=== PATIENT | male | born 1955 | race Caucasian/White ===

== ENCOUNTER → 2017-01-30 | Outpatient (CLI) | payer MEDICARE, OTHER ==
[~2017-01-30] MED LIST: ACET325 PO; ALBU90OI6; ALBUIS; ALLEGRA; ALUMAG30SU PO; AMOX25SU; Allegra-D 12 H1 EACH PO; BACL10; BACL20; BACLOFEN; Bactrim Ds Tab1 EACH PO; CALMAGZIN PO; CEFD300 PO; CEFP200; CEPH500 PO; CHOLP; CIPRO500 MG PO; CRANBERRY450 MG PO; Cranberry500 M1; DAKIN'S473 ML TOP; DOC250 PO; DOCU100; DOXY100 PO; Diflucan100 MG; FERR325 PO; FEXO180; FEXO180 PO; FEXO60; FEXPSEER PO; FLUSAL1005; FLUSAL1005 IH; FLUSAL1005 INH; FURO20 PO; FURO40; FURO40 PO; GABA300; GABA300 PO; GABA600; GABA600 PO; GABAPENTIN; GAVILAX17 GM PO; HYDACE10B; HYDACE10B PO; Humulin N100 UNIT/1 SC; IRON18 MG PO; IRRISO BLADIN; LEVEMIR FL100 UNIT/1; LEVEMIR FL100 UNIT/1 SC; LEVFLO500; LEVFLO500 PO; LEVO750 PO; LIORESAL; LIORESAL I; LISI5 PO; MANNOSE50 GM PO; META800 PO; METF500; METF500 PO; METF500C PO; METO25ER; METO50ER; METO50ER PO; MICRO K; MORP30ER PO; MSM PO; MULVITA PO; MULVITMINF PO; Micro-K10 MEQ; Micro-K10 MEQ PO; NITR100 PO; NOVOLOG FL100 UNIT/1 SC; NYST100P; NYST100P TOP; Norco 10-325 T1 EACH PO; OMEG1CAP30 PO; OMEP20ER; OMEP20ER PO; OMEPRAZOLE MAGN20 MG PO; ONDA4ODT PO; OXYACE5T PO; OXYB5; OXYB5 PO; OXYB5ER PO; OXYBSY; OXYC15ER PO; OXYC20ER; OXYC5 PO; POLY500; POTA10T PO; POTA8; POTCHL10ER PO; PREG100 PO; PREG150 PO; PROBIOTIC1 EAC1 PO; PROC10 PO; PROM25 PO; QUESTRAN LIGHT; QUIN10 PO; RENACIDIN IRRIG30 ML IR; RXONDA4ODT MM; SULTRIDS PO; TIAG12; TORSE20 PO; TORSEMIDE PO; TRAZ100; TRIM100; TRIM100 PO; TRIMPEX PO; Thera-M1 EACH PO; VENL37.5 PO; VITAMIN D PO; [UNRECOGNIZED DRUG - CODE] SC; [UNRECOGNIZED DRUG - OTHER]
[2017-01-30 13:53] LABS: Source, Urine Catheter
[2017-01-30 14:03] LABS: Bilirubin, Urine Neg (Neg); Blood, Urine 1+ (Neg); Glucose Qualitative, Urine Neg (Neg); Ketones, Urine Neg (Neg); Leukocyte Esterase, Urine 1+ (Neg); Nitrite, Urine Neg (Neg); Protein, Urine Neg (Neg); Specific Gravity, Urine 1.005 (1.003-1.022); Urobilinogen, Urine NORM (Normal)
[2017-01-30 14:11] LABS: Appearance, Urine Clear (Clear); Color, Urine Pale Yellow (P-Yellow)
[2017-01-30 14:16] LABS: Bacteria Few /hpf; Squamous Epithelial Cells Few /hpf (Few); Yeast/Fungi Urine Few /hpf
== END | disposition home or self-care (01) ==
LOC: LAB HH 13:50
PROVIDERS: Internal Medicine
DX: Z09 Encounter for follow-up examination after completed treatment for conditions other than malignant neoplasm (principal); Z87.440 Personal history of urinary (tract) infections
CPT/HCPCS: 81001; 87077; 87086; 87186

== ENCOUNTER 2017-03-05 00:43 | Day surgery (SDC) | payer MEDICARE, OTHER ==
[~2017-03-05 00:43] MED LIST changes: -Allegra-D 12 H1 EACH PO; -CEFD300 PO; -DAKIN'S473 ML TOP; -DOXY100 PO; -GAVILAX17 GM PO; -Humulin N100 UNIT/1 SC; +LAVAP17G PO; -MANNOSE50 GM PO; +MULVITMIND PO; -NOVOLOG FL100 UNIT/1 SC; +Novolog Fl100 UNIT/1; -OMEPRAZOLE MAGN20 MG PO; -Thera-M1 EACH PO; -[UNRECOGNIZED DRUG - CODE] SC
== END 2017-03-05 10:56 | disposition home or self-care (01) ==
LOC: ATC 00:43
DX: N39.0 Urinary tract infection, site not specified (principal); Z95.828 Presence of other vascular implants and grafts
CPT/HCPCS: 96523; J1642

== ENCOUNTER 2017-03-12 12:10 | Day surgery (SDC) | payer MEDICARE, OTHER | END 2017-03-12 22:55 | disposition home or self-care (01) | LOC: WOUND 12:10 | DX: Z48.00 Encounter for change or removal of nonsurgical wound dressing (principal); E11.622 Type 2 diabetes mellitus with other skin ulcer; L89.323 Pressure ulcer of left buttock, stage 3; G82.21 Paraplegia, complete; E66.01 Morbid (severe) obesity due to excess calories | CPT/HCPCS: 87070; 87075; 87076; 87147; 87205; G0463 ==

== ENCOUNTER 2017-03-12 13:53 | Day surgery (SDC) | payer MEDICARE, OTHER ==
[2017-03-12 15:02] LABS: Hematocrit 36.1 % (37.0-53.0); Hemoglobin 10.5 g/dL (13.5-17.5); Mean Corpuscular HGB 22.9 pg (26.0-34.0); Mean Corpuscular HGB Conc 29.1 g/dL (31.5-36.5); Mean Corpuscular Volume 79 fL (80-100); Mean Platelet Volume 8.7 fL (9.1-12.4); Platelet Count 572 K/mm3 (150-400); RDW Coefficient Variation 16.9 % (11.7-14.2); RDW Standard Deviation 48.2 fL (35.1-46.3); Red Blood Cell Count 4.58 M/mm3 (4.30-5.90); White Blood Cell Count 12.91 K/mm3 (4.00-11.30)
[2017-03-12 15:27] LABS: Alanine Aminotransfer (ALT/SGP 25 U/L (12-78); Albumin, Blood 2.6 g/dL (3.4-5.0); Albumin/Globulin Ratio 0.6 (0.8-1.8); Alk Phos 102 U/L (50-136); Anion Gap 4 mmol/L (6-16); Aspartate Aminotrans (AST/SGOT 14 U/L (12-37); Bilirubin, Total 0.3 mg/dL (0.1-1.0); Blood Urea Nitrogen 20 mg/dL (8-24); Bun/Creatinine Ratio 44.7 (12.0-20.0); CO2, Blood 32 mmol/L (21-32); Calcium, Blood 8.4 mg/dL (8.5-10.1); Chloride, Blood 102 mmol/L (98-108); Creatinine, Blood 0.45 mg/dL (0.60-1.20); Globulin, Blood 4.2 g/dL (2.2-4.0); Glomerular Filtration Rate >60 (60-); Glucose, Blood 145 mg/dL (70-99); Potassium, Blood 4.2 mmol/L (3.5-5.5); Sodium, Blood 138 mmol/L (136-145); Total Protein, Blood 6.8 g/dL (6.4-8.2)
== END 2017-03-12 14:32 | disposition home or self-care (01) ==
LOC: ATC 13:53
PROVIDERS: Surgery
DX: N39.0 Urinary tract infection, site not specified (principal); Z95.828 Presence of other vascular implants and grafts; E11.622 Type 2 diabetes mellitus with other skin ulcer; L98.419 Non-pressure chronic ulcer of buttock with unspecified severity; Z79.4 Long term (current) use of insulin; G82.20 Paraplegia, unspecified
CPT/HCPCS: 36591; 80053; 83036; 85027; 85651; 86140; J1642

== ENCOUNTER 2017-03-29 00:46 | Day surgery (SDC) | payer MEDICARE, OTHER | END 2017-03-29 23:35 | disposition home or self-care (01) | LOC: WOUND 00:46 | PROC: 2W15X6Z Compression of Back using Pressure Dressing (ICD-10-PCS; principal; 2017-03-29) | DX: Z48.00 Encounter for change or removal of nonsurgical wound dressing (principal); E11.622 Type 2 diabetes mellitus with other skin ulcer; L89.323 Pressure ulcer of left buttock, stage 3; G82.21 Paraplegia, complete; E66.01 Morbid (severe) obesity due to excess calories | CPT/HCPCS: G0463 ==

== ENCOUNTER 2017-04-16 17:17 | Emergency (ER) | payer MEDICARE, OTHER ==
[~2017-04-16] VITALS: Ht 188 cm; Wt 124.7 kg
[2017-04-16 18:53] LABS: Source, Urine Catheter
[2017-04-16 18:57] LABS: Appearance, Urine Clear (Clear); Bilirubin, Urine Neg (Neg); Blood, Urine 2+ (Neg); Glucose Qualitative, Urine Neg (Neg); Ketones, Urine Neg (Neg); Leukocyte Esterase, Urine 3+ (Neg); Nitrite, Urine Pos (Neg); Protein, Urine 2+ (Neg); Urobilinogen, Urine 1+ (Normal)
[2017-04-16 19:21] LABS: Color, Urine Yellow (P-Yellow)
[2017-04-16 19:23] LABS: White Blood Cells, Urine 50-100 /hpf (0-5)
[2017-04-16 19:24] LABS: Bacteria Many /hpf; Squamous Epithelial Cells Few /hpf (Few)
[2017-04-16 19:38] LABS: BASOPHILS ABSOLUTE AUTO 0.06 K/mm3 (0.00-0.23); BASOPHILS PERCENT AUTO 0 % (0-2); EOSINOPHILS ABSOLUTE AUTO 0.18 K/mm3 (0.00-0.68); EOSINOPHILS PERCENT AUTO 1 % (0-6); Hematocrit 33.1 % (37.0-53.0); Hemoglobin 9.8 g/dL (13.5-17.5); IMMATURE GRAN ABSOLUTE AUTO 0.31 K/mm3 (0.00-0.10); IMMATURE GRAN PERCENT AUTO 2 % (0-1); LYMPHOCYTES PERCENT AUTO 10 % (21-46); MONOCYTES ABSOLUTE AUTO 1.01 K/mm3 (0.16-1.47); MONOCYTES PERCENT AUTO 6 % (4-13); Mean Corpuscular HGB 22.8 pg (26.0-34.0); Mean Corpuscular HGB Conc 29.6 g/dL (31.5-36.5); Mean Corpuscular Volume 77 fL (80-100); Mean Platelet Volume 8.9 fL (9.1-12.4); NEUTROPHILS PERCENT AUTO 80 % (41-73); Platelet Count 442 K/mm3 (150-400); RDW Coefficient Variation 17.4 % (11.7-14.2); RDW Standard Deviation 48.6 fL (35.1-46.3); Red Blood Cell Count 4.29 M/mm3 (4.30-5.90); White Blood Cell Count 16.16 K/mm3 (4.00-11.30)
[2017-04-16 19:52] LABS: International Normalized Ratio 1.05; Prothrombin Time Results 10.9 Sec (9.7-11.5)
[2017-04-16 19:57] LABS: Alanine Aminotransfer (ALT/SGP 19 U/L (12-78); Albumin, Blood 2.3 g/dL (3.4-5.0); Albumin/Globulin Ratio 0.5 (0.8-1.8); Alk Phos 111 U/L (50-136); Anion Gap 6 mmol/L (6-16); Aspartate Aminotrans (AST/SGOT 11 U/L (12-37); Bilirubin, Total 0.2 mg/dL (0.1-1.0); Blood Urea Nitrogen 21 mg/dL (8-24); Bun/Creatinine Ratio 36.5 (12.0-20.0); CO2, Blood 31 mmol/L (21-32); Calcium, Blood 8.6 mg/dL (8.5-10.1); Chloride, Blood 98 mmol/L (98-108); Creatinine, Blood 0.58 mg/dL (0.60-1.20); Globulin, Blood 4.5 g/dL (2.2-4.0); Glomerular Filtration Rate >60 (60-); Glucose, Blood 223 mg/dL (70-99); Potassium, Blood 4.2 mmol/L (3.5-5.5); Sodium, Blood 135 mmol/L (136-145); Total Protein, Blood 6.8 g/dL (6.4-8.2)
[2017-04-16] MEDS ORDERED: CEFD300 PO (20:28)
[2017-04-16] MEDS ORDERED: LEVFLO500 PO (21:02)
== END 2017-04-16 21:40 | disposition home or self-care (01) ==
LOC: ER 17:17
PROVIDERS: Emergency Medicine
DX: N39.0 Urinary tract infection, site not specified (principal); R00.0 Tachycardia, unspecified; Z88.1 Allergy status to other antibiotic agents; Z79.899 Other long term (current) drug therapy; Z79.891 Long term (current) use of opiate analgesic; Z79.4 Long term (current) use of insulin
CPT/HCPCS: 36415; 80053; 81001; 83605; 85025; 85610; 85730; 87040; 87077; 87086; 87186; 96365; 99283; J0696; J1642; J7030

== ENCOUNTER 2017-04-20 10:52 | Emergency (ER) | payer MEDICARE, OTHER ==
[~2017-04-20] VITALS: Ht 188 cm; Wt 124.7 kg
[~2017-04-20 10:52] MED LIST changes: +CEFD300 PO
== END 2017-04-20 12:57 | disposition home or self-care (01) ==
LOC: ER 10:52
DX: N39.0 Urinary tract infection, site not specified (principal); B96.5 Pseudomonas (aeruginosa) (mallei) (pseudomallei) as the cause of diseases classified elsewhere; E11.9 Type 2 diabetes mellitus without complications; Z88.1 Allergy status to other antibiotic agents; Z79.899 Other long term (current) drug therapy; Z79.4 Long term (current) use of insulin
CPT/HCPCS: 87040; 99283; J1642

== ENCOUNTER 2017-06-19 00:24 | Day surgery (SDC) | payer MEDICARE, OTHER | END 2017-06-19 09:00 | disposition home or self-care (01) | LOC: ATC 00:24 | PROVIDERS: Internal Medicine | DX: L98.419 Non-pressure chronic ulcer of buttock with unspecified severity (principal); N39.0 Urinary tract infection, site not specified | CPT/HCPCS: 83036; 83540; 83550; 96374; J0713 ==

== ENCOUNTER 2017-06-20 00:24 | Day surgery (SDC) | payer MEDICARE, OTHER | END 2017-06-20 16:36 | disposition home or self-care (01) | LOC: ATC 00:24 | DX: N39.0 Urinary tract infection, site not specified (principal); D50.9 Iron deficiency anemia, unspecified; E11.9 Type 2 diabetes mellitus without complications | CPT/HCPCS: 96374; J0713; J1642 ==

== ENCOUNTER 2017-06-21 00:38 | Day surgery (SDC) | payer MEDICARE, OTHER | END 2017-06-21 17:00 | disposition home or self-care (01) | LOC: ATC 00:38 | DX: N39.0 Urinary tract infection, site not specified (principal); D50.9 Iron deficiency anemia, unspecified; E11.9 Type 2 diabetes mellitus without complications | CPT/HCPCS: 96374; J0713; J1642 ==

== ENCOUNTER 2017-06-23 00:24 | Day surgery (SDC) | payer MEDICARE, OTHER | END 2017-06-23 09:07 | disposition home or self-care (01) | LOC: ATC 00:24 | DX: N39.0 Urinary tract infection, site not specified (principal); E11.9 Type 2 diabetes mellitus without complications; D50.9 Iron deficiency anemia, unspecified; G47.33 Obstructive sleep apnea (adult) (pediatric); E66.01 Morbid (severe) obesity due to excess calories | CPT/HCPCS: 96374; J0713; J1642 ==

== ENCOUNTER → 2017-10-21 | Outpatient (CLI) | payer MEDICARE, OTHER ==
[2017-10-21 15:45] LABS: Appearance, Urine Hazy (Clear); Bilirubin, Urine Neg (Neg); Blood, Urine 4+ (Neg); Color, Urine Yellow (P-Yellow); Glucose Qualitative, Urine Neg (Neg); Ketones, Urine Neg (Neg); Leukocyte Esterase, Urine 3+ (Neg); Nitrite, Urine Neg (Neg); Protein, Urine 1+ (Neg); Specific Gravity, Urine 1.015 (1.003-1.022); Urobilinogen, Urine NORM (Normal)
[2017-10-21 16:06] LABS: Bacteria Many /hpf; Squamous Epithelial Cells Few /hpf (Few)
== END | disposition home or self-care (01) ==
LOC: LAB HH 14:38
PROVIDERS: Internal Medicine
DX: G82.20 Paraplegia, unspecified (principal)
CPT/HCPCS: 81001; 87077; 87086; 87186

== ENCOUNTER → 2017-10-24 | Outpatient (CLI) | payer MEDICARE, OTHER | END | disposition home or self-care (01) | LOC: LAB HH 12:55 | DX: L89.324 Pressure ulcer of left buttock, stage 4 (principal); G82.20 Paraplegia, unspecified | CPT/HCPCS: 87070; 87075; 87077; 87147; 87186; 87205 ==

== ENCOUNTER 2017-10-25 00:22 | Day surgery (SDC) | payer MEDICARE, OTHER | END 2017-10-25 22:46 | disposition home or self-care (01) | LOC: ATC 00:22 | DX: E11.9 Type 2 diabetes mellitus without complications (principal); D50.9 Iron deficiency anemia, unspecified | CPT/HCPCS: 36591; 83036; J1642 ==

== ENCOUNTER 2018-03-18 00:06 | Day surgery (SDC) | payer MEDICARE, OTHER ==
[2018-03-18 14:57] LABS: Anion Gap 6 mmol/L (6-16); Blood Urea Nitrogen 19 mg/dL (8-24); Bun/Creatinine Ratio 30.7 (12.0-20.0); CO2, Blood 32 mmol/L (21-32); Calcium, Blood 8.3 mg/dL (8.5-10.1); Chloride, Blood 102 mmol/L (98-108); Creatinine, Blood 0.62 mg/dL (0.60-1.20); Glomerular Filtration Rate >60 (60-); Glucose, Blood 108 mg/dL (70-99); Potassium, Blood 4.1 mmol/L (3.5-5.5); Sodium, Blood 140 mmol/L (136-145)
== END 2018-03-18 14:38 | disposition home or self-care (01) ==
LOC: ATC 00:06
PROVIDERS: Urology
DX: Z45.2 Encounter for adjustment and management of vascular access device (principal)
CPT/HCPCS: 36591; 80048; 83036; J1642

== ENCOUNTER → 2018-03-24 | Outpatient (CLI) | payer MEDICARE, OTHER ==
[2018-03-24 11:46] LABS: Source, Urine Clean Catch
[2018-03-24 13:18] LABS: Appearance, Urine Clear (Clear); Bilirubin, Urine Neg (Neg); Blood, Urine 3+ (Neg); Color, Urine Yellow (P-Yellow); Glucose Qualitative, Urine Neg (Neg); Ketones, Urine Neg (Neg); Leukocyte Esterase, Urine 2+ (Neg); Nitrite, Urine Neg (Neg); Protein, Urine 2+ (Neg); Specific Gravity, Urine 1.015 (1.003-1.022); Urobilinogen, Urine NORM (Normal)
[2018-03-24 13:31] LABS: Bacteria Few /hpf; Squamous Epithelial Cells Mod /hpf (Few)
== END | disposition home or self-care (01) ==
LOC: LAB SRC 11:43 → LAB SHORT 11:43
PROVIDERS: Internal Medicine
DX: G82.20 Paraplegia, unspecified (principal); N31.9 Neuromuscular dysfunction of bladder, unspecified; Z46.6 Encounter for fitting and adjustment of urinary device
CPT/HCPCS: 81001; 87077; 87086; 87186

== ENCOUNTER 2018-05-01 05:21 | Day surgery (SDC) | payer MEDICARE, OTHER | END 2018-05-01 14:14 | disposition home or self-care (01) | LOC: ATC 05:21 | DX: M86.9 Osteomyelitis, unspecified (principal); N28.9 Disorder of kidney and ureter, unspecified; E23.2 Diabetes insipidus | CPT/HCPCS: 36591; 85651; 86140; J1642 ==

== ENCOUNTER 2018-06-05 21:23 | Inpatient (IN) | payer MEDICARE, OTHER ==
[~2018-06-05] VITALS: Ht 188 cm; Wt 153.3 kg
[~2018-06-05 21:23] MED LIST changes: +Allegra-D 12 H1 EACH PO; +GAVILAX17 GM PO; -LAVAP17G PO; -MULVITMIND PO; +NOVOLOG FL100 UNIT/1 SC; -Novolog Fl100 UNIT/1; +OMEPRAZOLE MAGN20 MG PO; +Thera-M1 EACH PO
[2018-06-05 22:18] LABS: BASOPHILS ABSOLUTE AUTO 0.08 K/mm3 (0.00-0.23); BASOPHILS PERCENT AUTO 1 % (0-2); EOSINOPHILS ABSOLUTE AUTO 0.21 K/mm3 (0.00-0.68); EOSINOPHILS PERCENT AUTO 1 % (0-6); Hematocrit 35.4 % (37.0-53.0); Hemoglobin 9.7 g/dL (13.5-17.5); IMMATURE GRAN ABSOLUTE AUTO 0.21 K/mm3 (0.00-0.10); IMMATURE GRAN PERCENT AUTO 1 % (0-1); LYMPHOCYTES ABSOLUTE AUTO 1.42 K/mm3 (0.84-5.20); LYMPHOCYTES PERCENT AUTO 8 % (21-46); MONOCYTES PERCENT AUTO 6 % (4-13); Mean Corpuscular HGB 20.6 pg (26.0-34.0); Mean Corpuscular HGB Conc 27.4 g/dL (31.5-36.5); Mean Corpuscular Volume 75 fL (80-100); Mean Platelet Volume 8.6 fL (9.1-12.4); NEUTROPHILS ABSOLUTE AUTO 14.28 K/mm3 (1.96-9.15); NEUTROPHILS PERCENT AUTO 83 % (41-73); Platelet Count 489 K/mm3 (150-400); RDW Coefficient Variation 19.5 % (11.7-14.2); RDW Standard Deviation 52.9 fL (35.1-46.3); Red Blood Cell Count 4.72 M/mm3 (4.30-5.90)
[2018-06-05 22:36] LABS: Alanine Aminotransfer (ALT/SGP 20 U/L (12-78); Albumin, Blood 2.5 g/dL (3.4-5.0); Albumin/Globulin Ratio 0.6 (0.8-1.8); Alk Phos 108 U/L (50-136); Anion Gap 6 mmol/L (6-16); Aspartate Aminotrans (AST/SGOT 14 U/L (12-37); Bilirubin, Total 0.3 mg/dL (0.1-1.0); Blood Urea Nitrogen 29 mg/dL (8-24); Bun/Creatinine Ratio 35.6 (12.0-20.0); CO2, Blood 31 mmol/L (21-32); Calcium, Blood 8.5 mg/dL (8.5-10.1); Chloride, Blood 103 mmol/L (98-108); Creatinine, Blood 0.82 mg/dL (0.60-1.20); Globulin, Blood 4.5 g/dL (2.2-4.0); Glomerular Filtration Rate >60 (60-); Glucose, Blood 156 mg/dL (70-99); Potassium, Blood 4.7 mmol/L (3.5-5.5); Sodium, Blood 140 mmol/L (136-145)
[2018-06-05 22:57] LABS: Source, Urine Catheter
[2018-06-05 23:01] LABS: Bilirubin, Urine Neg (Neg); Blood, Urine 5+ (Neg); Glucose Qualitative, Urine Neg (Neg); Ketones, Urine Neg (Neg); Leukocyte Esterase, Urine 3+ (Neg); Nitrite, Urine Pos (Neg); Protein, Urine 3+ (Neg); Urobilinogen, Urine NORM (Normal)
[2018-06-05 23:03] LABS: Appearance, Urine Cloudy (Clear); Color, Urine Yellow (P-Yellow)
[2018-06-05 23:06] LABS: White Blood Cells, Urine TNTC /hpf (0-5)
[2018-06-05 23:07] LABS: Amorphous Light (0-Heavy); Bacteria Many /hpf; Red Blood Cells, Urine 0-2 /hpf (0-2); Squamous Epithelial Cells Not Seen /hpf (Few)
[2018-06-06] MEDS ORDERED: [UNRECOGNIZED DRUG - CODE] SC (06:51)
--- NOTE | 2018-06-06 08:00 | NUR ---
pt laying in bed with eyes closed, is slow to respond or answer, when asked about a question that he wasn't answering he said im thinking. he is a/ox3, cooperative with care, follows commands well, states his shoulder is what is hurting him, was given oxycodon this am for pain relief, and is asking about it again. was ok when told him he already had it. lungs are clear in upper [place], dim in bases, resp even and unlabored, no cough noted, is currently on 2.5 liters 02 via n/c, hrr, tele in place running st per monitor in the 130's, temp was 102.3 this am, no tylenol ordered, call to Dr. Mcgee recieved order for tylenol, and he felt his rate is probably due to temp. no edema noted, ppp+1 on r le, left aka, has wounds to l&r coccyx with wet to dry dressings last changed at 0500. moved his upper ext well, but is very weak. very slowly eating breakfast. andres, call light in reach.
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
[2018-06-06 09:10] LABS: Percent Saturation 6.4 % (20.0-50.0)
--- NOTE | 2018-06-06 11:00 | NUR ---
temp is down to 98.8, pt sweating, cool cloth given for forehead. call light in reach.
--- NOTE | 2018-06-06 14:16 | NUR ---
pt fever broke, has been afebrile since. no further complaints, medicated for pain, family in to visit. call light in reach.
--- NOTE | 2018-06-06 15:41 | NUR ---
Bill was changed to a big boy bed, tyleol given for h/a, which was relieved by this. at bedside. call light in reach.
--- NOTE | 2018-06-06 18:29 | NUR ---
pt has been afebrile since this am. has a lot of pain in his shoulder, no further changes this shift. call light in reach.
[2018-06-07 06:46] LABS: BASOPHILS ABSOLUTE AUTO 0.05 K/mm3 (0.00-0.23); BASOPHILS PERCENT AUTO 0 % (0-2); EOSINOPHILS PERCENT AUTO 1 % (0-6); Hemoglobin 8.5 g/dL (13.5-17.5); IMMATURE GRAN ABSOLUTE AUTO 0.18 K/mm3 (0.00-0.10); IMMATURE GRAN PERCENT AUTO 1 % (0-1); LYMPHOCYTES ABSOLUTE AUTO 1.74 K/mm3 (0.84-5.20); LYMPHOCYTES PERCENT AUTO 12 % (21-46); MONOCYTES ABSOLUTE AUTO 1.22 K/mm3 (0.16-1.47); MONOCYTES PERCENT AUTO 9 % (4-13); Mean Corpuscular HGB 20.9 pg (26.0-34.0); Mean Corpuscular HGB Conc 27.4 g/dL (31.5-36.5); Mean Corpuscular Volume 76 fL (80-100); Mean Platelet Volume 8.8 fL (9.1-12.4); NEUTROPHILS ABSOLUTE AUTO 10.91 K/mm3 (1.96-9.15); NEUTROPHILS PERCENT AUTO 77 % (41-73); Platelet Count 416 K/mm3 (150-400); RDW Coefficient Variation 19.3 % (11.7-14.2); RDW Standard Deviation 53.1 fL (35.1-46.3); Red Blood Cell Count 4.07 M/mm3 (4.30-5.90)
--- NOTE | 2018-06-07 07:49 | NUR ---
SHIFT SUMMARY PT ALERT AND ORIENTED X 3 THROUGHOUT SHIFT. HE HAS BEEN PLEASANT AND COOPERATIVE, WAS ABLE TO HELP STAFF WITH TURNS AND REPOSITIONS, AND DENIED ANY UNMET NEEDS DURING THE NIGHT. PT STATED THAT HIS PAIN WAS WELL CONTROLLED DURING THE SHIFT AND HE SLEPT THE MAJORITY OF THE NIGHT. HE WOKE EASILY FOR VITALS AND ASSESSMENTS. PT HAD BOTH OF HIS DRESSINGS CHANGED PER ORDER ON HIS BOTTOM AND HE WAS INCLUDED IN HIS CARE. PT HAD NO ACUTE CHANGES TO VITALS OR LOC. HE HAS HIS CALL LIGHT WITHIN REACH AND CONTINUES TO DEMONSTRATE APPROPRIATE USE OF IT. PT IS BEDBOUND AT THIS TIME AND IS REPOSITIONED FREQUENTLY. HE WILL CONTINUE TO BE MONITORED UNTIL HANDOFF TO DAYSHIFT RN.
--- NOTE | 2018-06-07 16:23 | NUR ---
PT IS CONTINUALY LEAKING URINE, CATH WAS FLUSHED WITH DILUTE VINEGAR SOLUTION DIRECTED. RETURN URINE IS PRETTY CLEAR WITH SPOTS OF SEDIMENT, IN ROOM, WE DECIDED TO CHANGE OUT THE WEN IT IS DUE TO BE CHANGED, THIS WAS DONE WITH URINE RETURN, 30MLS PLACED IN [place] AND WEN IS 20F. THIS IS WHAT WAS IN PLACE. NOT LEAKING AT THIS TIME. THIS WAS DONE STERILE FASHION AFTER CLEANSING WITH BETADINE. BOTH DRESSINGS WERE CHANGED AT THIS TIME USING THE DAKINS SOLUTION AND PACKING THE WOUND SHE DIRECTED, PLACING A 4X4 OVER THE TOP, THEN COVERING WITH AN ABD HALE, SECURING WITH MEPILEX. STATES THE WOUND ON THE LEFT LOOKS ABOUT THE SAME, THE ONE ON THE RIGHT HAS SOME PURPUL AREAS THAT WERENT THERE BEFORE, SHE WAS CONCERNED ABOUT HIM SITTING IN HIS CHAIR FOR A LONG PERIOD OF TIME IN THE ED. DRESSING WAS ALSO CHANGED ON MEDIPORT AFTER CLEANSING WITH CHLOR PREP. BED BATH GIVEN, HAIR WASHED, LINEN AND GOWN CHANGED. PT RESTING ON HIS SIDE. STATES HE IS COMFORTABLE. CALL LIGHT IN REACH, AT BEDSIDE.
--- NOTE | 2018-06-07 18:49 | NUR ---
pt had a pretty good day, still requiring pain meds regularly. lab called with positive blood cultures, this was reported to Dr. Mcgee. no new orders. no furhter changes this shift. call light in reach.
--- NOTE | 2018-06-08 06:30 | NUR ---
SHIFT SUMMARY PT ALERT AND ORIENTED X 3 THROUGHOUT SHIFT. HE WAS ABLE TO MAKE NEEDS KNOWN, COMMUNCIATED EFFECTIVELY WITH STAFF AND USED HIS CALL LIGHT APPROPRIATELY. CALL LIGHT WAS LEFT WITHIN EASY REACH. PT WAS TURNED Q2 HOURS AND HE WAS ABLE TO ASSIST STAFF WITH THIS. PT HAS WOUNDS THAT WERE CLEANED AND DRESSED THIS MORNING. PT ABLE TO HELP EDUCATE STAFF ABOUT DRESSING CHANGE PROCEDURES. HIS VITALS REMAINED STABLE DURING THE NIGHT AND HE DENIED ANY CHEST PAIN OR DISCOMFORT. HE DID HAVE SOME CHRONIC SHOULDER PAIN WHICH REQUIRED ORDERED PAIN MEDICATION. HE TOLERATED THIS WELL. PT DOES NOT TOLERATE FULL TURNS, DONE DURING DRESSING CHANGES. HE GETS SHORTNESS OF BREATH AND A COUGH WHEN HE LIES ON HIS RIGHT SIDE FOR EXTENDED PERIODS OF TIME. THIS CLEARS WHEN HE REPOSITIONS BACK TO HIS COMFORTABLE POSITION. DRESSINGS WERE CHANGED AND WOUNDS WERE PACKED TO PATIENT SATISFACTION AT APPROX 0600. PT WAS ABLE TO MAKE NEEDS KNOWN AND DENIED ANY UNMET NEEDS. HE HAD NO ACUTE CHANGES TO HIS MENTATION OR VITALS DURING THE NIGHT. PT WEN IS PATENT AND DRAINING WELL. THERE IS A VINEGAR SOLUTION THAT IS AVAILABLE TO USE A FLUSH FOR THE CATHETER IF FLOW BECOMES SLUGGISH. ORDER BY DOCTOR IS PRESENT FOR THIS. PT HAS HIS BED IN THE LOWEST POSITION, SIDE RAILS IN PLACE AND BED ALARM IS ACTIVE. PT WILL CONTINUE TO BE MONITORED UNTIL HANDOFF TO DAYSHIFT RN.
--- NOTE | 2018-06-08 11:44 | NUR ---
BEGINING OF SHIFT ASSUMED CARE OF PT AT 0700, RECIVED REPORT FROM YO JOHNSON. PT IS ALERT AND ORIENTED X3 AND IS ABLE TO ANSWER QUESTIONS APPROPRIATLEY.PT IS CURRENTLY ON 2L OF VIA [place]. PT IS COOPERATIVE AND IS ABLE TO FOLLOW DIRECTIONS. PT IS BEDBOUND AND IS RECIVING ASSISTANCE FOR REPOSITIONING Q 2 HOURS. PT HAS CHRONIC RIGHT SHOULDER PAIN AND IS REQUIRING PAIN MEDS PERSCRIBED. PT IS ALSO STATES TO HAVE DEVELOPED A COUGH OVERNIGHT, IS AWARE AND PERSCRIBED A CHEST X-RAY TO R/O PNEUMONIA. PT DOES NOT HAVE A TEMP AT THIS TIME. WILL CONTINUE TO MONITOR FOR CHANGES. BED AT LOWEST LEVEL AND CALL LIGHT IS WITHIN REACH.
--- NOTE | 2018-06-08 18:50 | NUR ---
END OF SHIFT SUMMARY: NO SIGNIFICANT CHANGES IN STATUS SINCE LAST NOTE. CHANGED PT'S WOUND DRESSINGS AT 1850, AND REPOSITIONED PT. PT IS COOPRATIVE, AND ALERT AND ORIENTED. PT HAS BEEN NEEDING PAIN MEDS REGULARLY FOR CHRONIC SHOULDER PAIN.PT HAS BEEN REPOSITIONED OFTEN AND IS ABLE TO ASSIST. PT WAS GIVEN AN INCENTIVE SPIROMETER AND WAS EDUCATED ON THE USE. BED IS AT LOWEST LEVEL, CALL LIGHT IS WITHIN REACH. WILL CONTINUE TO MONITOR UNTIL REPORT IS GIVEN TO ASSOCIATE TECHNICIAN RN.
--- NOTE | 2018-06-09 07:00 | NUR ---
SHIFT SUMMARY- PT HAS REMAINED AOX4 THROUGHOUT SHIFT. VSS. PLEASANT AND COOPERATIVE WITH CARE. PT REMAINS ON BEDREST AND ASSISTS WITH TURNING EVERY TWO HOURS TOLERATED. PT WITH MULTIPLE REPORTS OF PAIN THROUGHOUT THE NIGHT TO R SHOULDER THAT IS CHRONIC. ALSO REPORTS SOME ABDOMINAL DISCOMFORT THAT FEELS LIKE GAS-LIKE PRESSURE, NOTED TO HAVE BS IN ALL QUADRANTS AND GAS NOTED IN COLOSTOMY BAG REQUIRING "BURPING". DRESSING CHANGE DONE THIS AM AT APPROXIMATELY 0630, TOLERATED WELL. NO OTHER CHANGES FROM INITIAL ASSESSMENT. WILL CONTINUE TO MONITOR AND REPORT TO ONCOMING SHIFT RN. BED IN LOW POSITION, CALL LIGHT IN REACH. DENIES FURTHER NEEDS AT THIS TIME.
[2018-06-09 07:09] LABS: BASOPHILS PERCENT AUTO 1 % (0-2); EOSINOPHILS ABSOLUTE AUTO 0.55 K/mm3 (0.00-0.68); EOSINOPHILS PERCENT AUTO 4 % (0-6); Hematocrit 36.7 % (37.0-53.0); Hemoglobin 10.2 g/dL (13.5-17.5); IMMATURE GRAN ABSOLUTE AUTO 0.38 K/mm3 (0.00-0.10); IMMATURE GRAN PERCENT AUTO 3 % (0-1); LYMPHOCYTES ABSOLUTE AUTO 1.84 K/mm3 (0.84-5.20); LYMPHOCYTES PERCENT AUTO 13 % (21-46); MONOCYTES ABSOLUTE AUTO 0.83 K/mm3 (0.16-1.47); MONOCYTES PERCENT AUTO 6 % (4-13); Mean Corpuscular HGB 20.5 pg (26.0-34.0); Mean Corpuscular HGB Conc 27.8 g/dL (31.5-36.5); Mean Corpuscular Volume 74 fL (80-100); Mean Platelet Volume 8.6 fL (9.1-12.4); NEUTROPHILS ABSOLUTE AUTO 10.34 K/mm3 (1.96-9.15); NEUTROPHILS PERCENT AUTO 74 % (41-73); Platelet Count 563 K/mm3 (150-400); RDW Coefficient Variation 19.6 % (11.7-14.2); Red Blood Cell Count 4.97 M/mm3 (4.30-5.90); White Blood Cell Count 14.04 K/mm3 (4.00-11.30)
[2018-06-09 07:25] LABS: Anion Gap 5 mmol/L (6-16); Blood Urea Nitrogen 18 mg/dL (8-24); CO2, Blood 32 mmol/L (21-32); Calcium, Blood 8.9 mg/dL (8.5-10.1); Chloride, Blood 102 mmol/L (98-108); Creatinine, Blood 0.64 mg/dL (0.60-1.20); Glomerular Filtration Rate >60 (60-); Glucose, Blood 163 mg/dL (70-99); Sodium, Blood 139 mmol/L (136-145)
--- NOTE | 2018-06-09 13:27 | NUR ---
BEGINING OF SHIFT: ASSUMED CARE OF PT AT 0700, RECIVED REPORT FROM RONY JOHNSON. UPON ENTERING ROOM, PT WAS ALERT AND ORIENTED AND WAS ABLE TO FOLLOW DIRECTIONS. PT HAS NO SIGNIFICANT CHANGES FROM YESTERDAY, AWATING FOR BOWELS TO DEVELOP A BM BEFORE PT CAN BE DISCHARGED HOME. PT IS STILL REQUIRING PAIN MEDS REGULARLY FOR CHRONIC RIGHT SHOULDER PAIN. WILL CONTINUE TO MONITOR STATUS T/O SHIFT.
[2018-06-09] MEDS ORDERED: Humulin N100 UNIT/1 SC (17:02)
[2018-06-09] MEDS ORDERED: ACET325 PO (17:03)
[2018-06-09] MEDS ORDERED: MANNOSE50 GM PO (17:03)
[2018-06-09] MEDS ORDERED: DOXY100 PO (17:04)
[2018-06-09] MEDS ORDERED: DOC250 PO (17:05)
[2018-06-09] MEDS ORDERED: DAKIN'S473 ML TOP (17:06)
[2018-06-09] MEDS ORDERED: CEPH500 PO (17:11)
--- NOTE | 2018-06-09 18:20 | NUR ---
CALLS PLACED TO DR SANTOS This RN placed call to Dr Santos, notifying that senna was not effective at producing a bowel movement. Orders given for dulcolax suppository to be administered via colon stoma. Before suppository was administered, pt produced a small, formed bowel movement. Pt stated the bowel movement was "good enough for me". This RN placed call to Dr Santos to update. Provider stated plan to discharge patient. Discharge done by Saray MCCOLLUM, supervised by this RN.
--- NOTE | 2018-06-09 19:28 | NUR ---
DISCHARGE SUMMARY: PT STATUS HAD IMPROVED AND WAS ABLE TO PRODUCE A BOWEL MOVEMENT BEFORE DISCHARGING HOME WITH . PT WAS GIVEN DISCHARGE INFORMATION REGARDING NEW MEDICATION, CATHETER CARE AND DISCHARGE INSTRUCTIONS. PT LEFT THE FLOOR VIA POWER WHEELCHAIR.
--- NOTE | 2018-06-09 19:45 | NUR ---
DISCHARGE Pt discharged from PCU at 1705. Pt departed via his own electric wheel chair. Pt transferred from bed to wheelchair using a stiff plastic board and slider sheet- this is his home routine. Discharge instructions given to pt and his spouse immediately preceeding discharge. Medications called to [facility]. Changes to medication orders reviewed with patient.
== END 2018-06-09 17:05 | disposition home or self-care (01) | DRG 872 ==
LOC: ER 21:23 → PCU 06-06 00:15 → ERHOLD 06-06 00:15 → PCU 06-06 04:01
PROVIDERS: Emergency Medicine; Physician Assistant; ADMIT Internal Medicine
DX: A41.89 Other specified sepsis (principal); T83.511A Infection and inflammatory reaction due to indwelling urethral catheter, initial encounter; G82.20 Paraplegia, unspecified; Z68.41 Body mass index [BMI] 40.0-44.9, adult; D64.9 Anemia, unspecified; E11.622 Type 2 diabetes mellitus with other skin ulcer; L98.499 Non-pressure chronic ulcer of skin of other sites with unspecified severity; N31.2 Flaccid neuropathic bladder, not elsewhere classified; D50.9 Iron deficiency anemia, unspecified; Z93.3 Colostomy status; G47.33 Obstructive sleep apnea (adult) (pediatric); K59.00 Constipation, unspecified; G89.4 Chronic pain syndrome; Z99.3 Dependence on wheelchair; E66.09 Other obesity due to excess calories
CPT/HCPCS: 36415; 71046; 74176; 80048; 80053; 81001; 82947; 83540; 83550; 83605; 84484; 85025; 87040; 87077; 87086; 87186; 93005; 93010; 96361; 96365; 96367; 96375; 96376; 99285-25; J0696; J0744; J1170; J1642; J1650; J1815; J2916; J7030; J7050

== ENCOUNTER → 2018-06-30 | Outpatient (CLI) | payer MEDICARE, OTHER ==
[~2018-06-30] MED LIST changes: +DAKIN'S473 ML TOP; +DOXY100 PO; +Humulin N100 UNIT/1 SC; +MANNOSE50 GM PO; +[UNRECOGNIZED DRUG - CODE] SC
[2018-06-30 14:57] LABS: Source, Urine Catheter
[2018-06-30 15:07] LABS: Bilirubin, Urine Neg (Neg); Blood, Urine 4+ (Neg); Glucose Qualitative, Urine Neg (Neg); Ketones, Urine Neg (Neg); Leukocyte Esterase, Urine 3+ (Neg); Nitrite, Urine Neg (Neg); Protein, Urine 2+ (Neg); Specific Gravity, Urine 1.015 (1.003-1.022); Urobilinogen, Urine NORM (Normal)
[2018-06-30 15:12] LABS: Appearance, Urine Clear (Clear); Color, Urine Yellow (P-Yellow)
[2018-06-30 15:13] LABS: Bacteria Few /hpf; Red Blood Cells, Urine 50-100 /hpf (0-2); Squamous Epithelial Cells Few /hpf (Few); White Blood Cells, Urine 50-100 /hpf (0-5)
== END | disposition home or self-care (01) ==
LOC: LAB HH 14:52
PROVIDERS: Urology
DX: N39.0 Urinary tract infection, site not specified (principal); N31.1 Reflex neuropathic bladder, not elsewhere classified
CPT/HCPCS: 81001; 87086

== ENCOUNTER 2018-09-09 00:27 | Day surgery (SDC) | payer MEDICARE, OTHER ==
[2018-09-09 17:56] LABS: Anion Gap 2 mmol/L (6-16); Blood Urea Nitrogen 19 mg/dL (8-24); Bun/Creatinine Ratio 32.6 (12.0-20.0); CO2, Blood 36 mmol/L (21-32); Chloride, Blood 100 mmol/L (98-108); Creatinine, Blood 0.58 mg/dL (0.60-1.20); Glomerular Filtration Rate >60 (60-); Glucose, Blood 79 mg/dL (70-99); Potassium, Blood 4.3 mmol/L (3.5-5.5); Sodium, Blood 138 mmol/L (136-145)
== END 2018-09-09 17:10 | disposition home or self-care (01) ==
LOC: ATC 00:27
PROVIDERS: Urology
DX: E11.69 Type 2 diabetes mellitus with other specified complication (principal); M86.9 Osteomyelitis, unspecified; L89.229 Pressure ulcer of left hip, unspecified stage; N28.9 Disorder of kidney and ureter, unspecified; E23.2 Diabetes insipidus; I10 Essential (primary) hypertension; J45.909 Unspecified asthma, uncomplicated; G47.33 Obstructive sleep apnea (adult) (pediatric); D64.9 Anemia, unspecified; F41.9 Anxiety disorder, unspecified; E66.01 Morbid (severe) obesity due to excess calories
CPT/HCPCS: 36591; 80048; 83036; J1642

== ENCOUNTER → 2018-10-07 | Outpatient (CLI) | payer MEDICARE, OTHER ==
[2018-10-07 18:44] LABS: Bilirubin, Urine Neg (Neg); Blood, Urine 3+ (Neg); Glucose Qualitative, Urine Neg (Neg); Ketones, Urine Neg (Neg); Leukocyte Esterase, Urine 2+ (Neg); Nitrite, Urine Neg (Neg); Protein, Urine Neg (Neg); Urobilinogen, Urine NORM (Normal)
[2018-10-07 19:26] LABS: Color, Urine Pale Yellow (P-Yellow)
[2018-10-07 19:27] LABS: Appearance, Urine Hazy (Clear); Bacteria Rare /hpf; Red Blood Cells, Urine 0-2 /hpf (0-2); Squamous Epithelial Cells Rare /hpf (Few)
== END | disposition home or self-care (01) ==
LOC: LAB SHORT 15:11 → LAB SRC 15:11 → EDSTATUS 03-24 09:25 → LAB FUT 03-24 09:25
PROVIDERS: Urology
DX: N39.0 Urinary tract infection, site not specified (principal)
CPT/HCPCS: 81001; 87086

== ENCOUNTER 2018-12-25 05:29 | Inpatient (IN) | payer MEDICARE, OTHER ==
[~2018-12-25] VITALS: Ht 190.5 cm; Wt 144.6 kg
[~2018-12-25 05:29] MED LIST changes: +ALLEGRA ALLERG180 MG PO; -Allegra-D 12 H1 EACH PO; -OMEPRAZOLE MAGN20 MG PO; +OMEPRAZOLE20 MG PO
[2018-12-25 06:08] LABS: Source, Urine Catheter
[2018-12-25 06:11] LABS: BASOPHILS ABSOLUTE AUTO 0.09 K/mm3 (0.00-0.23); BASOPHILS PERCENT AUTO 0 % (0-2); EOSINOPHILS ABSOLUTE AUTO 0.07 K/mm3 (0.00-0.68); EOSINOPHILS PERCENT AUTO 0 % (0-6); Hematocrit 30.6 % (37.0-53.0); Hemoglobin 8.6 g/dL (13.5-17.5); IMMATURE GRAN ABSOLUTE AUTO 0.31 K/mm3 (0.00-0.10); IMMATURE GRAN PERCENT AUTO 1 % (0-1); LYMPHOCYTES ABSOLUTE AUTO 0.39 K/mm3 (0.84-5.20); LYMPHOCYTES PERCENT AUTO 2 % (21-46); MONOCYTES ABSOLUTE AUTO 0.53 K/mm3 (0.16-1.47); MONOCYTES PERCENT AUTO 3 % (4-13); Mean Corpuscular HGB 21.6 pg (26.0-34.0); Mean Corpuscular HGB Conc 28.1 g/dL (31.5-36.5); Mean Corpuscular Volume 77 fL (80-100); Mean Platelet Volume 8.4 fL (9.1-12.4); NEUTROPHILS ABSOLUTE AUTO 20.01 K/mm3 (1.96-9.15); NEUTROPHILS PERCENT AUTO 94 % (41-73); Platelet Count 524 K/mm3 (150-400); RDW Coefficient Variation 18.4 % (11.7-14.2); RDW Standard Deviation 50.7 fL (35.1-46.3); Red Blood Cell Count 3.98 M/mm3 (4.30-5.90)
[2018-12-25 06:12] LABS: Appearance, Urine Cloudy (Clear); Bilirubin, Urine Neg (Neg); Blood, Urine 5+ (Neg); Color, Urine Yellow (P-Yellow); Glucose Qualitative, Urine 2+ (Neg); Ketones, Urine Neg (Neg); Leukocyte Esterase, Urine 3+ (Neg); Nitrite, Urine Neg (Neg); Protein, Urine 3+ (Neg); Specific Gravity, Urine 1.015 (1.003-1.022); Urobilinogen, Urine NORM (Normal)
[2018-12-25 06:17] LABS: Bacteria Mod /hpf; Squamous Epithelial Cells Rare /hpf (Few); White Blood Cells, Urine TNTC /hpf (0-5)
[2018-12-25 06:27] LABS: Alanine Aminotransfer (ALT/SGP 25 U/L (12-78); Albumin, Blood 2.3 g/dL (3.4-5.0); Albumin/Globulin Ratio 0.5 (0.8-1.8); Alk Phos 116 U/L (50-136); Anion Gap 7 mmol/L (6-16); Aspartate Aminotrans (AST/SGOT 11 U/L (12-37); Bilirubin, Total 0.4 mg/dL (0.1-1.0); Blood Urea Nitrogen 28 mg/dL (8-24); Bun/Creatinine Ratio 37.5 (12.0-20.0); CO2, Blood 31 mmol/L (21-32); Calcium, Blood 8.5 mg/dL (8.5-10.1); Chloride, Blood 103 mmol/L (98-108); Creatinine, Blood 0.75 mg/dL (0.60-1.20); Globulin, Blood 4.8 g/dL (2.2-4.0); Glomerular Filtration Rate >60 (60-); Glucose, Blood 225 mg/dL (70-99); Potassium, Blood 4.5 mmol/L (3.5-5.5); Sodium, Blood 141 mmol/L (136-145); Total Protein, Blood 7.1 g/dL (6.4-8.2)
[2018-12-25] MEDS ORDERED: MYRBETRIQ25 MG PO (06:58)
[2018-12-25] MEDS ORDERED: Vitamin D2000 UNIT PO (06:59)
[2018-12-25] MEDS ORDERED: OXYB5 PO (06:59)
[2018-12-25 10:18] LABS: BASOPHILS ABSOLUTE AUTO 0.06 K/mm3 (0.00-0.23); BASOPHILS PERCENT AUTO 0 % (0-2); EOSINOPHILS ABSOLUTE AUTO 0.04 K/mm3 (0.00-0.68); EOSINOPHILS PERCENT AUTO 0 % (0-6); Hematocrit 32.3 % (37.0-53.0); IMMATURE GRAN ABSOLUTE AUTO 0.26 K/mm3 (0.00-0.10); IMMATURE GRAN PERCENT AUTO 1 % (0-1); LYMPHOCYTES ABSOLUTE AUTO 0.52 K/mm3 (0.84-5.20); LYMPHOCYTES PERCENT AUTO 3 % (21-46); MONOCYTES ABSOLUTE AUTO 0.45 K/mm3 (0.16-1.47); MONOCYTES PERCENT AUTO 2 % (4-13); Mean Corpuscular HGB 21.7 pg (26.0-34.0); Mean Corpuscular HGB Conc 27.9 g/dL (31.5-36.5); Mean Corpuscular Volume 78 fL (80-100); Mean Platelet Volume 8.4 fL (9.1-12.4); NEUTROPHILS ABSOLUTE AUTO 17.84 K/mm3 (1.96-9.15); NEUTROPHILS PERCENT AUTO 93 % (41-73); Platelet Count 499 K/mm3 (150-400); RDW Coefficient Variation 18.6 % (11.7-14.2); RDW Standard Deviation 52.3 fL (35.1-46.3); Red Blood Cell Count 4.14 M/mm3 (4.30-5.90); White Blood Cell Count 19.17 K/mm3 (4.00-11.30)
[2018-12-25] MEDS ORDERED: Novolin R100 UNIT/M SC (10:32)
[2018-12-25 10:33] LABS: International Normalized Ratio 1.07; Prothrombin Time Results 11.3 Sec (9.7-11.5)
[2018-12-25] MEDS ORDERED: METAMUCIL POWD174 GM PO (10:43)
[2018-12-25] MEDS ORDERED: Pedi-Dri 100,0060 GM TOP (10:54)
--- NOTE | 2018-12-25 12:37 | NUR ---
Initial Visit: Palliative Care Consult AD/POLST, Advanced Care Planning, and Symptom Management. Pt is A&O and reports 10/10 pain in his shoulder. Significant anxiety noted that appears to be driven by his pain. Pt denies SOB and nausea. Listened as Pt states "I want this to be over". He reports just wanting to be comfortable. Asked Pt if he meant wanting to be placed on comfort care. Pt responds by saying yes. Pt's Sinai is at bedside and is tearful. Educated Pt on philosophy of comfort care with V/U made by Pt. Sinai reports Pt has never mentioned giving up before and states he also has not been in this much pain either. Inquired about quality of life and Pt responds with "good". Sinai reports Pt just went hunting yesterday. Suggested getting pain managed then would continued with conversation. Bedside nurse Jarrett receives orders for Fentanyl IV and one time dose of Toradol. Medications given and after several minutes Pt reports pain is improving and continueing to decline. Current pain rating is 8/10. Pt appears more comfortable and intermitently is closing his eyes. Revisited conversation regarding comfort care and Pt reports no longer wanting this goal of care. Listened as Sinai reports just her and Pt living at home but has an adult child living near by that is supportive. Sinai reports needing extra support in the home but can not afford to pay for caregivers. Suggested applying for the Medicaid process and Sinai reports interest in learning more. She also reports Pt's last visit at [facility] in [place] Pt received palliative care support. Sinai reports being told because of palliative care support Pt would not qualify for home health. Sinai reports Pt has not received any support since being discharged. No other concerns reported at this time. Placed social service referral for information with caregiver support and Medicaid process. Palliative Care will remain available for symptom management.
--- NOTE | 2018-12-25 15:54 | NUR ---
CODE STATUS: DNR VERIFIED WITH ANGELINA BROOKE RN. PT AGREES WITH THIS. PURPLE BAND PLACED ON LEFT WRIST.
[2018-12-25 16:10] LABS: Source, Urine Catheter
[2018-12-25 16:25] LABS: Bilirubin, Urine Neg (Neg); Blood, Urine 5+ (Neg); Glucose Qualitative, Urine 1+ (Neg); Ketones, Urine 1+ (Neg); Leukocyte Esterase, Urine 3+ (Neg); Nitrite, Urine Neg (Neg); Protein, Urine 3+ (Neg); Urobilinogen, Urine 1+ (Normal)
--- NOTE | 2018-12-25 16:27 | NUR ---
SHIFT SUMMARY: ED ADMIT THIS AM. PT WITH A 102.7 FEVER INITIALLY. 650 MG PO TYLENOL GIVEN, ICE PACKS APPLIED UNDER BOTH ARMS, BLANKETS REMOVED, AND HEAT TURNED DOWN. 1 HOUR RECHECK OF TEMP SHOWED 103, BUT AFTER ADDITIONAL PAIN MEDICATIONS GIVEN AND FAN PLACED AT BEDSIDE, TEMP CAME DOWN TO 98.7. PT'S HEART RATE AND BLOOD PRESSURE BOTH IMPROVED AFTER SCHEDULED PO METOPROLOL GIVEN. WEN CATHETER CHANGED PER PROTOCOL AND UA SENT TO LAB. WOUND CARE TO BILATERAL BUTTOCKS COMPLETED PER HOME REGIMEN WITH THE EXCEPTION OF DAKIN'S SOLUTION (ORDERED FOR TOMORROW'S DRESSING CHANGE) AND PICTURES PLACED ON CHART. IVF BOLUS COMPLETE WHEN PT CAME TO FLOOR; MAINTENANCE FLUIDS OF NS @ 125 ML/HR INFUSING TO MEDIPORT IN RIGHT CHEST WALL. PAIN IS MUCH BETTER CONTROLLED AFTER PRN FENTANYL AND ONE TIME DOSE OF TORADOL. PALLIATIVE CARE RN IN TO SPEAK WITH PT AND TODAY; PLEASE REFER TO THEIR NOTES. PT IS CURRENTLY RESTING IN HIS ROOM. PT PLACED ON AIR BED THIS AFTERNOON. BED IN LOW POSITION AND CALL LIGHT IN REACH. REPORT GIVEN TO ALEX GREEN ASSUMING CARE FOR REMAINDER OF SHIFT.
[2018-12-25 16:43] LABS: Appearance, Urine Cloudy (Clear); Color, Urine Yellow (P-Yellow)
[2018-12-25 16:44] LABS: White Blood Cells, Urine TNTC /hpf (0-5)
[2018-12-25 16:45] LABS: Bacteria Many /hpf; Red Blood Cells, Urine 50-100 /hpf (0-2); Squamous Epithelial Cells Rare /hpf (Few)
--- NOTE | 2018-12-25 18:08 | NUR ---
ASSUMED CARE OF PATIENT LATE THIS AFTERNOON. PT ALERT AND ORIENTED. PT UP IN BED. PT REQUESTED TYLENOL FOR HEADACHE. PT CURRENTLY SITTING UP EATING DINNER. PT STATES NO ADDITIONAL NEEDS AT THIS TIME. WILL CONTINUE TO MONITOR.
--- NOTE | 2018-12-25 19:35 | NUR ---
PT VEWS SCORE AT 6. TEMP IS 100.7, PULSE 116, RR 28, BP 158/98, PULSE OX 98% ON RA. PT REPORTS HE IS IN "10/10 PAIN". ADMINISTERED FENTANYL AND OXYCODONE FOR PAIN. ADMINISTERED TYLENOL. ICE PACKS APPLIED UNDER BILATERAL ARMS, FAN ON PATIENT, ROOM TEMP TURNED DOWN, BLANKETS REMOVED. PT RECIEVING IV FLUIDS NS AT 125 ML/HR. WILL REASSESS IN 30 MINUTES FOR EFFECTIVENESS AND THEN CALL HOSPITALIST IF NO RESULTS.
--- NOTE | 2018-12-25 20:42 | NUR ---
VITAL SIGNS HAVE STABILIZED. TEMP 97.6. HR 111. BP 145/92. 95% ON 2 L. WILL CONT OT CLOSELY MONITOR VITALS AND REPORT ANY CHANGES TO PROVIDER.
[2018-12-26 05:10] LABS: BASOPHILS ABSOLUTE AUTO 0.04 K/mm3 (0.00-0.23); BASOPHILS PERCENT AUTO 0 % (0-2); EOSINOPHILS ABSOLUTE AUTO 0.13 K/mm3 (0.00-0.68); EOSINOPHILS PERCENT AUTO 1 % (0-6); Hematocrit 28.6 % (37.0-53.0); Hemoglobin 7.9 g/dL (13.5-17.5); IMMATURE GRAN PERCENT AUTO 3 % (0-1); LYMPHOCYTES ABSOLUTE AUTO 0.71 K/mm3 (0.84-5.20); LYMPHOCYTES PERCENT AUTO 7 % (21-46); MONOCYTES ABSOLUTE AUTO 0.57 K/mm3 (0.16-1.47); MONOCYTES PERCENT AUTO 6 % (4-13); Mean Corpuscular HGB 21.4 pg (26.0-34.0); Mean Corpuscular HGB Conc 27.6 g/dL (31.5-36.5); Mean Corpuscular Volume 77 fL (80-100); Mean Platelet Volume 8.4 fL (9.1-12.4); NEUTROPHILS PERCENT AUTO 83 % (41-73); Platelet Count 397 K/mm3 (150-400); RDW Coefficient Variation 18.5 % (11.7-14.2); RDW Standard Deviation 51.9 fL (35.1-46.3); White Blood Cell Count 10.15 K/mm3 (4.00-11.30)
[2018-12-26 05:30] LABS: Alanine Aminotransfer (ALT/SGP 50 U/L (12-78); Albumin, Blood 1.8 g/dL (3.4-5.0); Albumin/Globulin Ratio 0.4 (0.8-1.8); Alk Phos 91 U/L (50-136); Anion Gap 4 mmol/L (6-16); Aspartate Aminotrans (AST/SGOT 39 U/L (12-37); Bilirubin, Total 0.2 mg/dL (0.1-1.0); Blood Urea Nitrogen 26 mg/dL (8-24); Bun/Creatinine Ratio 36.6 (12.0-20.0); CO2, Blood 29 mmol/L (21-32); Calcium, Blood 7.8 mg/dL (8.5-10.1); Chloride, Blood 106 mmol/L (98-108); Creatinine, Blood 0.71 mg/dL (0.60-1.20); Globulin, Blood 4.2 g/dL (2.2-4.0); Glomerular Filtration Rate >60 (60-); Glucose, Blood 101 mg/dL (70-99); Magnesium, Blood 1.8 mg/dL (1.6-2.4); Potassium, Blood 4.3 mmol/L (3.5-5.5); Sodium, Blood 139 mmol/L (136-145)
--- NOTE | 2018-12-26 06:06 | NUR ---
PT RETURNED. TAMPER TAPE INTACT.
--- NOTE | 2018-12-26 06:27 | NUR ---
SHIFT SUMMARY PT HAD TEMP OF 102.4 AT START OF SHIFT, HAS BEEN AFEBRILE WITH TYLENOL AND BRIEF APPLICATION OF ICE PACKS. PAIN MANAGEMENT HAS BEEN DIFFICULT TO SATISFY TONIGHT. PT REQUIRES 50 MCG IV FENTANYL, 30 MG PO OXYCODONE THREE TIMES, AND SCHEDULED MS CONTIN. PT REPORTS PAIN IS WELL CONTROLLED AT THIS TIME. WEN CATH PATENT AND DRAINING DARK ELINA URINE. DEEP DECUB ULCERS TO BILATERAL BUTTOCKS, DRESSING C/D/I, Q2H TURNS. NS RUNNING @ 125 ML/HR INTO R CHEST WALL MEDIPORT. NO OTHR CHANGES TO REPORT. WILL CONT TO MONITOR AND PROVIDE CARE UNTIL PRESUMED BY ONCOMING RN.
--- NOTE | 2018-12-26 10:25 | NUR ---
Met with Tiago this morning. He is awake and states that he is feeling much better. He reports his pain is well controlled now on his routine meds that he takes at home. He did receive one dose of IV pain medication during my visit as he reports he had some discomfort after being turned. He is alert and pleasant. He reports he and his live alone and a daughter lives nearby. He states he has a special bed and a motorized wheelchair. He reports he used to receive services for wound care and catheter care, however he reports that HH stopped coming as his wounds are "non-healing." He was recently seen at [facility] in [place]. He would like to have HH visits again. He states he feels he has all the necessary equipment at home. He reports he only stated that he wanted to end things yesterday because he hurt so badly. This morning he reports that he feels bad that he said that in front of his . He reports his quality of life at home is good and he wishes to pursue treatments. He states he is a DNR and has paperwork at home that his was planning to bring in today when she visits. Spoke with NORRIS Arnold, who states she will speak with pt and his re: HH services and the medicaid process. No further needs or requests at the end of the visit. PC will continue to follow for symptom management and care planning. Will also plan to take copies for EMR of paperwork that his brings in.
[2018-12-26 14:45] LABS: Stool Occult Blood Guaiac 1 Neg (Neg)
--- NOTE | 2018-12-26 18:29 | NUR ---
PT A/O THROUGHOUT THIS SHIFT. PT COOPERATIVE WITH CARE. PT MEDICATED THROUGHOUT SHIFT FOR PAIN, REMAINS AT 5 OR ABOVE ON 0-10 SCALE THROUGHOUT SHIFT. PT STATES 5 IS ACCEPTABLE LEVEL FOR HIM. WOUND DRESSINGS CHANGE THIS SHIFT. PT HAS HAD FAMILY IN ROOM TO VISIT THIS SHIFT. PT SITTING UP IN BED, FAMILY AT BEDSIDE, CALL LIGHT IN REACH. WILL CONTINUE TO MONITOR.
--- NOTE | 2018-12-27 05:45 | NUR ---
SHIFT SUMMARY: 63 Y/O PARAPLEGIC MALE RESTED COMFORTABLY IN AIR MATTRESS BED ALL SHIFT, C/O LOW BACK PAIN RATED 6/10 WITH OXYCODONE 30MG PO X 1 TABLET GIVEN THREE TIMES WITH RELIEF FELT, HAPPY AND COOPERATIVE, ALERT AND ORIENTED X 4, BED LOW POSITION, CALL LIGHT AT SIDE.
[2018-12-27 13:23] LABS: Hemoglobin 7.6 g/dL (13.5-17.5)
[2018-12-27 13:40] LABS: Percent Saturation 15.6 % (20.0-50.0)
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
[2018-12-28 05:26] LABS: BASOPHILS ABSOLUTE AUTO 0.04 K/mm3 (0.00-0.23); BASOPHILS PERCENT AUTO 1 % (0-2); EOSINOPHILS PERCENT AUTO 4 % (0-6); Hematocrit 27.5 % (37.0-53.0); Hemoglobin 7.6 g/dL (13.5-17.5); IMMATURE GRAN ABSOLUTE AUTO 0.31 K/mm3 (0.00-0.10); IMMATURE GRAN PERCENT AUTO 5 % (0-1); LYMPHOCYTES ABSOLUTE AUTO 1.29 K/mm3 (0.84-5.20); LYMPHOCYTES PERCENT AUTO 19 % (21-46); MONOCYTES ABSOLUTE AUTO 0.45 K/mm3 (0.16-1.47); MONOCYTES PERCENT AUTO 7 % (4-13); Mean Corpuscular HGB 21.4 pg (26.0-34.0); Mean Corpuscular HGB Conc 27.6 g/dL (31.5-36.5); Mean Corpuscular Volume 78 fL (80-100); Mean Platelet Volume 8.4 fL (9.1-12.4); NEUTROPHILS ABSOLUTE AUTO 4.43 K/mm3 (1.96-9.15); NEUTROPHILS PERCENT AUTO 65 % (41-73); Platelet Count 385 K/mm3 (150-400); RDW Coefficient Variation 18.1 % (11.7-14.2); RDW Standard Deviation 51.1 fL (35.1-46.3); Red Blood Cell Count 3.55 M/mm3 (4.30-5.90); White Blood Cell Count 6.82 K/mm3 (4.00-11.30)
[2018-12-28 05:42] LABS: Anion Gap 5 mmol/L (6-16); Blood Urea Nitrogen 19 mg/dL (8-24); Bun/Creatinine Ratio 25.5 (12.0-20.0); CO2, Blood 32 mmol/L (21-32); Calcium, Blood 8.3 mg/dL (8.5-10.1); Chloride, Blood 107 mmol/L (98-108); Creatinine, Blood 0.75 mg/dL (0.60-1.20); Glomerular Filtration Rate >60 (60-); Glucose, Blood 103 mg/dL (70-99); Potassium, Blood 3.9 mmol/L (3.5-5.5); Sodium, Blood 144 mmol/L (136-145)
--- NOTE | 2018-12-28 06:11 | NUR ---
SHIFT SUMMARY: 63 Y/O MALE RESTED COMFORTABLY ALL SHIFT, THIS NURSE CHANGED BILATERAL STAGE IV WOUNDS DRESSINGS THIS SHIFT AFTER BOTH LEAKED SERO-SANGUINOUS DRAINAGE, WET TO DRY APPLIED WITH ABD PAD AND MEPLEX TAPE--TOLERATED PROCEDURE WELL, C/O BACK PAIN RATED 6/10 WITH OXYCODONE 30MG PO GIVEN, DENIES NAUSEA, AIR MATTRESS BED INTACT, BED LOW POSITION WITH CALL LIGHT AT SIDE.
--- NOTE | 2018-12-28 17:01 | NUR ---
No acute changes noted. No current complaints of pain or discomfort noted. ostomy is producing brown stool, min is patient and draining yellow urine. Dressings to ulcers are clean dry and intact. Will continue to monitor for changes.
--- NOTE | 2018-12-29 01:43 | NUR ---
FLORINA MCCLELLAN CALLED TO REPORT ELEVATION IN BP ABOVE THE 200'S. RECHECKED MANUALLY ON THE LEFT WRIST BP WAS 220/86, ON THE RIGHT WRIST BP WAS 170/62. INFORMED LOGAN JOHNSON OF THE BP READINGS, AND THAT THE PATIENT STATES ELEVATION IN PAIN.
--- NOTE | 2018-12-29 02:21 | NUR ---
BP 170/62 AND PREVIOUS 198/82. HOSPITALIST DR DIEZ ORDERED APRESOLINE 10 MG IV FOR SBP >160 Q6 PRN.
--- NOTE | 2018-12-29 03:44 | NUR ---
SHIFT SUMMARY PATIENT BP ELEVATED END OF DAY SHIFT AND START OF NOC SHIFT. BP REDUCED FROM 198/80 TO 161/[address] DIEZ ORDERD APRESOLINE IV 10 MG Q6 PRN FOR SBP >160. AXOX 3 AND BEDFAST/LIFT PT. SCHEDULE MS CONTIN AND PRN OXYCODONE GIVEN PER EMAR FOR BACK PAIN. MEDIPORT INTACT TKO. TRAINING AND QUALITY MANAGER REPORTS SR 83 W/BBB. DENIES SOB AND N/V. ON 3L O2 NC. WEN PATENT AND DRAINING. PATIENT SELF CARE OSTOMY. CONTACT PRECAUTIONS. CALL LIGHT IN REACH. BED IN LOWEST POSITION. WILL CONTINUE TO MONITOR UNTIL DAY SHIFT NURSE ASSUMES CARE.
[2018-12-29] MEDS ORDERED: JUVEN PACKET1 EACH PO (11:31)
[2018-12-29] MEDS ORDERED: LEVFLO500 PO (11:32)
[2018-12-29] MEDS ORDERED: FERSU300 PO (11:32)
--- NOTE | 2018-12-29 12:50 | NUR ---
DISCHARGE PT STATES FEELING IMPROVED HOPEFUL TO GO HOME TODAY. DR REIS IN TO SEE HIM THIS AM, PROVIDE D/C HOME ORDERS. IN FOR TRANSPORTATION HOME. WOUND CARE, CAN CHANGE PROVIDED BILAT BUTTOCKS ULCERS. CHRONIC WEN CATHETER CONTINUES, CHANGED TO LEG BAG. MEDIPORT HEP LOCKED, DEACCESSED. PT ASSISTED UP TO HIS MOTORIZED W/C VIA [facility] LIFT. [facility]/REQUEST. D/C INSTRUCT PROVIDED. PT INDEPENDANTLY OPERATES W/C FROM HOSP ACCOMPANIED BY . PLEASANT AFFECT.
== END 2018-12-29 13:21 | disposition home or self-care (01) | DRG 698 ==
LOC: ER 05:29 → MEDS 09:28 → ENPENDDIS 12-29 10:23 → MEDS 12-29 13:21
PROVIDERS: Emergency Medicine; Internal Medicine; Nurse Practitioner Acute Care; ADMIT Hospitalist
DX: T83.511A Infection and inflammatory reaction due to indwelling urethral catheter, initial encounter (principal); A41.81 Sepsis due to Enterococcus; A41.89 Other specified sepsis; G82.20 Paraplegia, unspecified; N39.0 Urinary tract infection, site not specified; E66.01 Morbid (severe) obesity due to excess calories; K59.00 Constipation, unspecified; L89.159 Pressure ulcer of sacral region, unspecified stage; D50.9 Iron deficiency anemia, unspecified; D63.8 Anemia in other chronic diseases classified elsewhere; I10 Essential (primary) hypertension; E11.9 Type 2 diabetes mellitus without complications; Z99.3 Dependence on wheelchair; G47.30 Sleep apnea, unspecified; G89.4 Chronic pain syndrome; Z88.2 Allergy status to sulfonamides; Z88.8 Allergy status to other drugs, medicaments and biological substances; Z79.4 Long term (current) use of insulin; Z79.899 Other long term (current) drug therapy; Z66 Do not resuscitate; Z68.39 Body mass index [BMI] 39.0-39.9, adult
CPT/HCPCS: 36415; 71045; 80048; 80053; 81001; 82272; 82728; 82947; 83540; 83550; 83605; 83735; 85014; 85018; 85025; 85610; 86850; 86900; 86901; 87040; 87077; 87086; 87186; 93005; 93010; 96361; 96365; 99285-25; A9270; J0360; J0696; J1650; J1815; J1885; J1956; J2405; J2543; J3010; J7030; J7050

== ENCOUNTER 2018-12-30 20:37 | Emergency (ER) | payer MEDICARE, OTHER ==
[~2018-12-30] VITALS: Ht 188 cm; Wt 136.1 kg
[~2018-12-30 20:37] MED LIST changes: +FERSU300 PO; +JUVEN PACKET1 EACH PO; +METAMUCIL POWD174 GM PO; +MYRBETRIQ25 MG PO; +Novolin R100 UNIT/M SC; +Pedi-Dri 100,0060 GM TOP; +Vitamin D2000 UNIT PO
[2018-12-30 23:16] LABS: BASOPHILS ABSOLUTE AUTO 0.08 K/mm3 (0.00-0.23); BASOPHILS PERCENT AUTO 1 % (0-2); EOSINOPHILS ABSOLUTE AUTO 0.34 K/mm3 (0.00-0.68); EOSINOPHILS PERCENT AUTO 2 % (0-6); Hematocrit 30.5 % (37.0-53.0); Hemoglobin 8.6 g/dL (13.5-17.5); IMMATURE GRAN ABSOLUTE AUTO 1.01 K/mm3 (0.00-0.10); IMMATURE GRAN PERCENT AUTO 7 % (0-1); LYMPHOCYTES PERCENT AUTO 15 % (21-46); MONOCYTES PERCENT AUTO 4 % (4-13); Mean Corpuscular HGB 21.2 pg (26.0-34.0); Mean Corpuscular HGB Conc 28.2 g/dL (31.5-36.5); Mean Platelet Volume 8.4 fL (9.1-12.4); NEUTROPHILS ABSOLUTE AUTO 10.55 K/mm3 (1.96-9.15); NEUTROPHILS PERCENT AUTO 71 % (41-73); NRBC ABSOLUTE 0.04 K/mm3 (0.00-0.02); NRBC Auto 0.3 /100 WBC (0.0-0.2); Platelet Count 467 K/mm3 (150-400); RDW Coefficient Variation 18.7 % (11.7-14.2); RDW Standard Deviation 49.6 fL (35.1-46.3); Red Blood Cell Count 4.05 M/mm3 (4.30-5.90); White Blood Cell Count 14.78 K/mm3 (4.00-11.30)
[2018-12-30 23:19] LABS: Mean Corpuscular Volume 75 fL (80-100)
[2018-12-30 23:33] LABS: BAND PERCENT MAN 2 % (0-8); BASOPHILS PERCENT MAN 0 % (0-2); EOSINOPHILS ABSOLUTE MAN 0.44 K/mm3 (0.00-0.68); EOSINOPHILS PERCENT MAN 3 % (0-6); LYMPHOCYTES ABSOLUTE MAN 1.33 K/mm3 (0.84-5.20); LYMPHOCYTES PERCENT MAN 9 % (21-46); METAMYELOCYTE ABSOLUTE MAN 0.29 K/mm3 (0.00-0.00); METAMYELOCYTE PERCENT MAN 2 % (0-0); MONOCYTES ABSOLUTE MAN 0.59 K/mm3 (0.16-1.47); MONOCYTES PERCENT MAN 4 % (4-13); MYELOCYTE ABSOLUTE MAN 0.14 K/mm3 (0.00-0.00); MYELOCYTE PERCENT MAN 1 % (0-0); NEUTROPHILS ABSOLUTE MAN 11.97 K/mm3 (1.96-9.15); SEG NEUTROPHILS PERCENT MAN 79 % (41-73); TOTAL CELLS COUNTED 100
[2018-12-30 23:35] LABS: Alanine Aminotransfer (ALT/SGP 28 U/L (12-78); Albumin, Blood 2.2 g/dL (3.4-5.0); Albumin/Globulin Ratio 0.5 (0.8-1.8); Alk Phos 133 U/L (50-136); Anion Gap 5 mmol/L (6-16); Aspartate Aminotrans (AST/SGOT 14 U/L (12-37); Bilirubin, Total 0.2 mg/dL (0.1-1.0); Blood Urea Nitrogen 18 mg/dL (8-24); Bun/Creatinine Ratio 23.9 (12.0-20.0); CO2, Blood 36 mmol/L (21-32); Calcium, Blood 8.5 mg/dL (8.5-10.1); Chloride, Blood 99 mmol/L (98-108); Creatinine, Blood 0.75 mg/dL (0.60-1.20); Globulin, Blood 4.5 g/dL (2.2-4.0); Glomerular Filtration Rate >60 (60-); Glucose, Blood 117 mg/dL (70-99); Potassium, Blood 3.9 mmol/L (3.5-5.5); Sodium, Blood 140 mmol/L (136-145); Total Protein, Blood 6.7 g/dL (6.4-8.2)
[2018-12-31] MEDS ORDERED: ONDA4ODT MM (02:33)
== END 2018-12-31 02:40 | disposition home or self-care (01) ==
LOC: ER 20:37
PROVIDERS: Physician Assistant
DX: R09.02 Hypoxemia (principal); R06.02 Shortness of breath; L89.324 Pressure ulcer of left buttock, stage 4; L89.314 Pressure ulcer of right buttock, stage 4; E11.9 Type 2 diabetes mellitus without complications; J45.909 Unspecified asthma, uncomplicated; Z89.512 Acquired absence of left leg below knee; D72.829 Elevated white blood cell count, unspecified; Z88.1 Allergy status to other antibiotic agents; Z88.2 Allergy status to sulfonamides; Z79.899 Other long term (current) drug therapy; Z79.4 Long term (current) use of insulin
CPT/HCPCS: 36415; 71101; 71260; 74177; 80053; 83690; 85025; 96361; 96374-59; 99284-25; A9270-GY; J7120; Q9967

== ENCOUNTER → 2019-02-27 | Outpatient (CLI) | payer MEDICARE, OTHER ==
[~2019-02-27] MED LIST changes: +ONDA4ODT MM
[2019-02-27 14:54] LABS: Bilirubin, Urine Neg (Neg); Blood, Urine 5+ (Neg); Glucose Qualitative, Urine Neg (Neg); Ketones, Urine Neg (Neg); Leukocyte Esterase, Urine 3+ (Neg); Nitrite, Urine Neg (Neg); Protein, Urine 2+ (Neg); Urobilinogen, Urine NORM (Normal); pH, Urine 6.5 (5.0-8.0)
[2019-02-27 15:11] LABS: Appearance, Urine Hazy (Clear); Color, Urine Yellow (P-Yellow)
[2019-02-27 15:12] LABS: White Blood Cells, Urine 50-100 /hpf (0-5)
[2019-02-27 15:13] LABS: Bacteria Many /hpf; Hyaline Casts 0-2 /lpf (0-2); Red Blood Cells, Urine 25-50 /hpf (0-2); Squamous Epithelial Cells Few /hpf (Few)
== END | disposition home or self-care (01) ==
LOC: LAB SHORT 13:17 → LAB 13:17
PROVIDERS: Family Medicine
DX: N39.0 Urinary tract infection, site not specified (principal); R36.9 Urethral discharge, unspecified; S91.301A Unspecified open wound, right foot, initial encounter; S91.001A Unspecified open wound, right ankle, initial encounter
CPT/HCPCS: 81001; 87070; 87075; 87077; 87086; 87186; 87205

== ENCOUNTER 2019-03-03 14:55 | Day surgery (SDC) | payer MEDICARE, OTHER | END 2019-03-03 15:22 | disposition home or self-care (01) | LOC: ATC 14:55 | DX: L89.324 Pressure ulcer of left buttock, stage 4 (principal); L89.313 Pressure ulcer of right buttock, stage 3; E11.69 Type 2 diabetes mellitus with other specified complication; M46.28 Osteomyelitis of vertebra, sacral and sacrococcygeal region; E66.01 Morbid (severe) obesity due to excess calories; G82.20 Paraplegia, unspecified; D64.9 Anemia, unspecified; F41.9 Anxiety disorder, unspecified; J45.909 Unspecified asthma, uncomplicated; I10 Essential (primary) hypertension; N31.9 Neuromuscular dysfunction of bladder, unspecified; G47.33 Obstructive sleep apnea (adult) (pediatric); E23.2 Diabetes insipidus; G89.4 Chronic pain syndrome; Z98.1 Arthrodesis status; Z88.2 Allergy status to sulfonamides; Z88.1 Allergy status to other antibiotic agents; Z79.4 Long term (current) use of insulin; Z79.899 Other long term (current) drug therapy | CPT/HCPCS: 36591; 83036; J1642 ==

== ENCOUNTER 2019-03-13 01:03 | Day surgery (SDC) | payer MEDICARE, OTHER | END 2019-03-13 23:11 | disposition home or self-care (01) | LOC: WOUND 01:03 | DX: L89.314 Pressure ulcer of right buttock, stage 4 (principal); L89.324 Pressure ulcer of left buttock, stage 4; E11.621 Type 2 diabetes mellitus with foot ulcer; G47.33 Obstructive sleep apnea (adult) (pediatric); L97.419 Non-pressure chronic ulcer of right heel and midfoot with unspecified severity; J45.909 Unspecified asthma, uncomplicated; E66.01 Morbid (severe) obesity due to excess calories; G82.20 Paraplegia, unspecified; Z79.4 Long term (current) use of insulin; Z89.622 Acquired absence of left hip joint; Z88.1 Allergy status to other antibiotic agents; Z88.2 Allergy status to sulfonamides; Z68.38 Body mass index [BMI] 38.0-38.9, adult ==

== ENCOUNTER → 2019-04-06 | Outpatient (CLI) | payer MEDICARE, OTHER ==
[~2019-04-06] MED LIST changes: +Ceftriaxone1 G2 IV
[2019-04-06 11:24] LABS: Source, Urine Catheter
[2019-04-06 13:05] LABS: Bilirubin, Urine Neg (Neg); Blood, Urine 4+ (Neg); Glucose Qualitative, Urine Neg (Neg); Ketones, Urine 1+ (Neg); Leukocyte Esterase, Urine 3+ (Neg); Nitrite, Urine Neg (Neg); Protein, Urine 3+ (Neg); Specific Gravity, Urine 1.015 (1.003-1.022); Urobilinogen, Urine NORM (Normal); pH, Urine 6.5 (5.0-8.0)
[2019-04-06 13:17] LABS: Appearance, Urine Turbid (Clear); Color, Urine Yellow (P-Yellow)
[2019-04-06 13:21] LABS: Bacteria Mod /hpf; Red Blood Cells, Urine TNTC /hpf (0-2); Squamous Epithelial Cells Rare /hpf (Few); White Blood Cells, Urine TNTC /hpf (0-5)
== END | disposition home or self-care (01) ==
LOC: LAB SHORT 11:23 → LAB SRC 11:23
PROVIDERS: Family Medicine
DX: N39.0 Urinary tract infection, site not specified (principal)
CPT/HCPCS: 81001; 87077; 87086; 87186

== ENCOUNTER 2019-04-07 16:51 | Emergency (ER) | payer MEDICARE, OTHER ==
[~2019-04-07] VITALS: Ht 188 cm; Wt 136.1 kg
[~2019-04-07 16:51] MED LIST changes: -Ceftriaxone1 G2 IV
[2019-04-07 19:50] LABS: Source, Urine Clean Catch
[2019-04-07 19:54] LABS: Bilirubin, Urine Neg (Neg); Blood, Urine 4+ (Neg); Glucose Qualitative, Urine Neg (Neg); Ketones, Urine Neg (Neg); Leukocyte Esterase, Urine 3+ (Neg); Nitrite, Urine Neg (Neg); Protein, Urine 3+ (Neg); Specific Gravity, Urine 1.005 (1.003-1.022); Urobilinogen, Urine NORM (Normal)
[2019-04-07 19:57] LABS: BASOPHILS ABSOLUTE AUTO 0.07 K/mm3 (0.00-0.23); BASOPHILS PERCENT AUTO 1 % (0-2); EOSINOPHILS PERCENT AUTO 2 % (0-6); Hematocrit 32.7 % (37.0-53.0); Hemoglobin 9.1 g/dL (13.5-17.5); IMMATURE GRAN ABSOLUTE AUTO 0.14 K/mm3 (0.00-0.10); IMMATURE GRAN PERCENT AUTO 1 % (0-1); LYMPHOCYTES ABSOLUTE AUTO 1.88 K/mm3 (0.84-5.20); LYMPHOCYTES PERCENT AUTO 13 % (21-46); MONOCYTES ABSOLUTE AUTO 0.69 K/mm3 (0.16-1.47); MONOCYTES PERCENT AUTO 5 % (4-13); Mean Corpuscular HGB 20.7 pg (26.0-34.0); Mean Corpuscular HGB Conc 27.8 g/dL (31.5-36.5); Mean Corpuscular Volume 75 fL (80-100); NEUTROPHILS PERCENT AUTO 79 % (41-73); Platelet Count 519 K/mm3 (150-400); RDW Coefficient Variation 18.4 % (11.7-14.2); RDW Standard Deviation 49.7 fL (35.1-46.3); Red Blood Cell Count 4.39 M/mm3 (4.30-5.90); White Blood Cell Count 14.78 K/mm3 (4.00-11.30)
[2019-04-07 20:04] LABS: Appearance, Urine Cloudy (Clear); Color, Urine Yellow (P-Yellow)
[2019-04-07 20:07] LABS: White Blood Cells, Urine TNTC /hpf (0-5)
[2019-04-07 20:08] LABS: Bacteria Many /hpf; Squamous Epithelial Cells Few /hpf (Few)
[2019-04-07 20:26] LABS: Alanine Aminotransfer (ALT/SGP 20 U/L (12-78); Albumin, Blood 2.6 g/dL (3.4-5.0); Albumin/Globulin Ratio 0.6 (0.8-1.8); Alk Phos 94 U/L (50-136); Anion Gap 3 mmol/L (6-16); Aspartate Aminotrans (AST/SGOT 11 U/L (12-37); Bilirubin, Total 0.2 mg/dL (0.1-1.0); Blood Urea Nitrogen 19 mg/dL (8-24); Bun/Creatinine Ratio 31.1 (12.0-20.0); CO2, Blood 37 mmol/L (21-32); Calcium, Blood 8.7 mg/dL (8.5-10.1); Chloride, Blood 99 mmol/L (98-108); Creatinine, Blood 0.61 mg/dL (0.60-1.20); Globulin, Blood 4.2 g/dL (2.2-4.0); Glomerular Filtration Rate >60 (60-); Glucose, Blood 164 mg/dL (70-99); Potassium, Blood 4.7 mmol/L (3.5-5.5); Sodium, Blood 139 mmol/L (136-145); Total Protein, Blood 6.8 g/dL (6.4-8.2)
== END 2019-04-07 21:33 | disposition home or self-care (01) ==
LOC: ER 16:51
PROVIDERS: Emergency Medicine
DX: N12 Tubulo-interstitial nephritis, not specified as acute or chronic (principal); E11.9 Type 2 diabetes mellitus without complications; Z79.899 Other long term (current) drug therapy; Z79.4 Long term (current) use of insulin
CPT/HCPCS: 71046; 80053; 81001; 83605; 85025; 87077; 87086; 87186; 96365; 96375; 99282-25; J0696; J1642

== ENCOUNTER 2019-04-09 00:21 | Day surgery (SDC) | payer MEDICARE, OTHER ==
[2019-04-09 15:24] LABS: BASOPHILS ABSOLUTE AUTO 0.08 K/mm3 (0.00-0.23); BASOPHILS PERCENT AUTO 1 % (0-2); EOSINOPHILS ABSOLUTE AUTO 0.54 K/mm3 (0.00-0.68); EOSINOPHILS PERCENT AUTO 5 % (0-6); Hematocrit 32.7 % (37.0-53.0); Hemoglobin 8.8 g/dL (13.5-17.5); IMMATURE GRAN ABSOLUTE AUTO 0.18 K/mm3 (0.00-0.10); IMMATURE GRAN PERCENT AUTO 2 % (0-1); LYMPHOCYTES ABSOLUTE AUTO 2.27 K/mm3 (0.84-5.20); LYMPHOCYTES PERCENT AUTO 19 % (21-46); MONOCYTES ABSOLUTE AUTO 0.62 K/mm3 (0.16-1.47); MONOCYTES PERCENT AUTO 5 % (4-13); Mean Corpuscular HGB 20.7 pg (26.0-34.0); Mean Corpuscular HGB Conc 26.9 g/dL (31.5-36.5); Mean Corpuscular Volume 77 fL (80-100); Mean Platelet Volume 9.6 fL (9.1-12.4); NEUTROPHILS ABSOLUTE AUTO 8.28 K/mm3 (1.96-9.15); NEUTROPHILS PERCENT AUTO 69 % (41-73); Platelet Count 506 K/mm3 (150-400); RDW Coefficient Variation 18.6 % (11.7-14.2); RDW Standard Deviation 51.3 fL (35.1-46.3); Red Blood Cell Count 4.26 M/mm3 (4.30-5.90); White Blood Cell Count 11.97 K/mm3 (4.00-11.30)
== END 2019-04-09 14:21 | disposition home or self-care (01) ==
LOC: ATC 00:21
PROVIDERS: Family Medicine
DX: N12 Tubulo-interstitial nephritis, not specified as acute or chronic (principal); E11.9 Type 2 diabetes mellitus without complications; E66.01 Morbid (severe) obesity due to excess calories; Z79.4 Long term (current) use of insulin
CPT/HCPCS: 36591; 85025; 96365; J0696; J1642

== ENCOUNTER 2019-04-10 02:07 | Day surgery (SDC) | payer MEDICARE, OTHER ==
[2019-04-11] MEDS ORDERED: Ceftriaxone1 G2 IV (12:13)
== END 2019-04-10 14:52 | disposition home or self-care (01) ==
LOC: ATC 02:07
DX: N12 Tubulo-interstitial nephritis, not specified as acute or chronic (principal); I10 Essential (primary) hypertension; E66.01 Morbid (severe) obesity due to excess calories; E11.9 Type 2 diabetes mellitus without complications; Z79.899 Other long term (current) drug therapy; Z79.4 Long term (current) use of insulin
CPT/HCPCS: 96365; J0696; J1642

== ENCOUNTER 2019-04-11 08:08 | Day surgery (SDC) | payer MEDICARE, OTHER ==
[2019-04-11] MEDS ORDERED: Ceftriaxone1 G2 IV (12:13)
== END 2019-04-11 11:25 | disposition home or self-care (01) ==
LOC: ATC 08:08
DX: N12 Tubulo-interstitial nephritis, not specified as acute or chronic (principal); E66.01 Morbid (severe) obesity due to excess calories; E11.9 Type 2 diabetes mellitus without complications; Z79.899 Other long term (current) drug therapy; Z79.4 Long term (current) use of insulin
CPT/HCPCS: 96365; J0696; J1642

== ENCOUNTER 2019-04-12 00:37 | Day surgery (SDC) | payer MEDICARE, OTHER ==
[~2019-04-12 00:37] MED LIST changes: +Ceftriaxone1 G2 IV
== END 2019-04-12 14:27 | disposition home or self-care (01) ==
LOC: ATC 00:37
DX: N12 Tubulo-interstitial nephritis, not specified as acute or chronic (principal); I10 Essential (primary) hypertension; E66.01 Morbid (severe) obesity due to excess calories; E11.9 Type 2 diabetes mellitus without complications; Z79.899 Other long term (current) drug therapy; Z79.4 Long term (current) use of insulin
CPT/HCPCS: 96365; J0696; J1642

== ENCOUNTER 2019-04-13 00:12 | Day surgery (SDC) | payer MEDICARE, OTHER | END 2019-04-13 15:01 | disposition home or self-care (01) | LOC: ATC 00:12 | DX: N12 Tubulo-interstitial nephritis, not specified as acute or chronic (principal); I10 Essential (primary) hypertension; E66.01 Morbid (severe) obesity due to excess calories; E11.9 Type 2 diabetes mellitus without complications; Z79.899 Other long term (current) drug therapy; Z79.4 Long term (current) use of insulin | CPT/HCPCS: 96365; J0696; J1642 ==

== ENCOUNTER 2019-04-14 00:04 | Day surgery (SDC) | payer MEDICARE, OTHER | END 2019-04-14 14:58 | disposition home or self-care (01) | LOC: ATC 00:04 | DX: N12 Tubulo-interstitial nephritis, not specified as acute or chronic (principal) | CPT/HCPCS: 96365; J0696; J1642 ==

== ENCOUNTER 2019-04-22 17:05 | Emergency (ER) | payer MEDICARE, OTHER ==
[~2019-04-22] VITALS: Ht 188 cm; Wt 131.5 kg
[2019-04-22 19:06] LABS: Source, Urine Catheter
[2019-04-22 19:09] LABS: BASOPHILS ABSOLUTE AUTO 0.09 K/mm3 (0.00-0.23); BASOPHILS PERCENT AUTO 0 % (0-2); EOSINOPHILS PERCENT AUTO 1 % (0-6); Hematocrit 31.8 % (37.0-53.0); Hemoglobin 8.8 g/dL (13.5-17.5); IMMATURE GRAN ABSOLUTE AUTO 0.19 K/mm3 (0.00-0.10); IMMATURE GRAN PERCENT AUTO 1 % (0-1); LYMPHOCYTES PERCENT AUTO 7 % (21-46); MONOCYTES ABSOLUTE AUTO 0.92 K/mm3 (0.16-1.47); MONOCYTES PERCENT AUTO 4 % (4-13); Mean Corpuscular HGB 21.2 pg (26.0-34.0); Mean Corpuscular HGB Conc 27.7 g/dL (31.5-36.5); Mean Corpuscular Volume 76 fL (80-100); Mean Platelet Volume 9.4 fL (9.1-12.4); NEUTROPHILS ABSOLUTE AUTO 21.77 K/mm3 (1.96-9.15); NEUTROPHILS PERCENT AUTO 88 % (41-73); Platelet Count 406 K/mm3 (150-400); RDW Coefficient Variation 19.7 % (11.7-14.2); RDW Standard Deviation 54.4 fL (35.1-46.3); Red Blood Cell Count 4.16 M/mm3 (4.30-5.90); White Blood Cell Count 24.87 K/mm3 (4.00-11.30)
[2019-04-22 19:11] LABS: Bilirubin, Urine Neg (Neg); Blood, Urine 4+ (Neg); Glucose Qualitative, Urine Neg (Neg); Ketones, Urine Neg (Neg); Leukocyte Esterase, Urine 3+ (Neg); Nitrite, Urine Neg (Neg); Protein, Urine 2+ (Neg); Urobilinogen, Urine NORM (Normal)
[2019-04-22 19:26] LABS: Appearance, Urine Clear (Clear); Color, Urine Yellow (P-Yellow)
[2019-04-22 19:27] LABS: White Blood Cells, Urine TNTC /hpf (0-5)
[2019-04-22 19:28] LABS: Bacteria Few /hpf; Red Blood Cells, Urine 25-50 /hpf (0-2); Squamous Epithelial Cells Few /hpf (Few)
[2019-04-22 19:40] LABS: Albumin, Blood 2.6 g/dL (3.4-5.0); Albumin/Globulin Ratio 0.7 (0.8-1.8); Alk Phos 97 U/L (50-136); Anion Gap 1 mmol/L (6-16); Aspartate Aminotrans (AST/SGOT 21 U/L (12-37); Bilirubin, Total 0.2 mg/dL (0.1-1.0); Blood Urea Nitrogen 26 mg/dL (8-24); Bun/Creatinine Ratio 41.6 (12.0-20.0); CO2, Blood 33 mmol/L (21-32); Calcium, Blood 8.2 mg/dL (8.5-10.1); Chloride, Blood 102 mmol/L (98-108); Creatinine, Blood 0.63 mg/dL (0.60-1.20); Globulin, Blood 3.7 g/dL (2.2-4.0); Glomerular Filtration Rate >60 (60-); Glucose, Blood 216 mg/dL (70-99); Potassium, Blood 5.1 mmol/L (3.5-5.5); Sodium, Blood 136 mmol/L (136-145); Total Protein, Blood 6.3 g/dL (6.4-8.2)
[2019-04-22 19:50] LABS: Alanine Aminotransfer (ALT/SGP 33 U/L (12-78)
[2019-04-22] MEDS ORDERED: LEVFLO500 PO (19:56)
== END 2019-04-22 21:51 | disposition home or self-care (01) ==
LOC: ER 17:05
PROVIDERS: Physician Assistant
DX: N39.0 Urinary tract infection, site not specified (principal); L89.159 Pressure ulcer of sacral region, unspecified stage; G82.20 Paraplegia, unspecified; E11.9 Type 2 diabetes mellitus without complications; D64.9 Anemia, unspecified; G47.33 Obstructive sleep apnea (adult) (pediatric); Z79.899 Other long term (current) drug therapy; Z79.891 Long term (current) use of opiate analgesic; Z79.4 Long term (current) use of insulin
CPT/HCPCS: 36415; 80053; 81001; 83605; 85025; 87077; 87086; 87186; 96365; 96366; 99283-25; J1642; J1956

== ENCOUNTER → 2019-04-22 | Outpatient (CLI) | payer MEDICARE, OTHER ==
[2019-04-22 19:12] LABS: Bilirubin, Urine Neg (Neg); Blood, Urine 5+ (Neg); Glucose Qualitative, Urine Neg (Neg); Ketones, Urine Neg (Neg); Leukocyte Esterase, Urine 3+ (Neg); Nitrite, Urine Neg (Neg); Protein, Urine 2+ (Neg); Urobilinogen, Urine NORM (Normal)
[2019-04-22 19:28] LABS: Appearance, Urine Clear (Clear); Color, Urine Yellow (P-Yellow)
[2019-04-22 19:29] LABS: Bacteria Few /hpf; Red Blood Cells, Urine 50-100 /hpf (0-2); Squamous Epithelial Cells Few /hpf (Few); White Blood Cells, Urine 25-50 /hpf (0-5)
== END ==
LOC: LAB 18:15 → LAB SHORT 18:15
PROVIDERS: Nurse Practitioner Family
DX: R82.90 Unspecified abnormal findings in urine (principal)
CPT/HCPCS: 81001

== ENCOUNTER → 2019-05-29 | Outpatient (CLI) | payer MEDICARE, OTHER ==
[2019-06-04 13:44] LABS: Stool Occult Bld Immuno 1 Positive (NEGATIVE)
== END | disposition home or self-care (01) ==
LOC: LAB SHORT 15:58 → LAB 15:58 → LAB SHORT 06-03 15:58
PROVIDERS: Nurse Practitioner Family
DX: Z12.11 Encounter for screening for malignant neoplasm of colon (principal)
CPT/HCPCS: G0328

== ENCOUNTER → 2019-06-17 | Outpatient (CLI) | payer MEDICARE, OTHER ==
[~2019-06-17] MED LIST changes: +CELE100 PO
[2019-06-17 14:31] LABS: Source, Urine Catheter
[2019-06-17 15:42] LABS: Bilirubin, Urine Neg (Neg); Blood, Urine 3+ (Neg); Glucose Qualitative, Urine Neg (Neg); Ketones, Urine Neg (Neg); Leukocyte Esterase, Urine 1+ (Neg); Nitrite, Urine Neg (Neg); Protein, Urine Neg (Neg); Urobilinogen, Urine NORM (Normal); pH, Urine 6.5 (5.0-8.0)
[2019-06-17 16:00] LABS: Appearance, Urine Clear (Clear); Color, Urine Pale Yellow (P-Yellow)
[2019-06-17 16:01] LABS: Bacteria Rare /hpf; Squamous Epithelial Cells Rare /hpf (Few)
== END | disposition home or self-care (01) ==
LOC: LAB SHORT 14:29 → LAB 14:29
PROVIDERS: Nurse Practitioner Family
DX: R82.90 Unspecified abnormal findings in urine (principal)
CPT/HCPCS: 81001; 87077; 87086; 87186

== ENCOUNTER → 2019-06-24 | Outpatient (CLI) | payer MEDICARE, OTHER ==
[2019-06-24 12:06] LABS: Bilirubin, Urine Neg (Neg); Blood, Urine 4+ (Neg); Glucose Qualitative, Urine Neg (Neg); Ketones, Urine Neg (Neg); Leukocyte Esterase, Urine 3+ (Neg); Nitrite, Urine Pos (Neg); Protein, Urine 3+ (Neg); Urobilinogen, Urine NORM (Normal)
[2019-06-24 12:21] LABS: Appearance, Urine Turbid (Clear); Color, Urine Yellow (P-Yellow)
[2019-06-24 12:27] LABS: Bacteria Many /hpf; Red Blood Cells, Urine TNTC /hpf (0-2); Squamous Epithelial Cells Few /hpf (Few); White Blood Cells, Urine TNTC /hpf (0-5)
== END | disposition home or self-care (01) ==
LOC: LAB 11:41 → LAB SHORT 11:41
PROVIDERS: Family Medicine
DX: E11.9 Type 2 diabetes mellitus without complications (principal); G82.21 Paraplegia, complete; R82.90 Unspecified abnormal findings in urine; L89.893 Pressure ulcer of other site, stage 3
CPT/HCPCS: 81001; 87070; 87077; 87086; 87147; 87186; 87205

== ENCOUNTER → 2019-07-15 | Outpatient (CLI) | payer MEDICARE, OTHER ==
[~2019-07-15] MED LIST changes: +LOSA50; +Zyvox600 MG
[2019-07-15 15:44] LABS: Bilirubin, Urine Neg (Neg); Blood, Urine 5+ (Neg); Glucose Qualitative, Urine Neg (Neg); Ketones, Urine Neg (Neg); Leukocyte Esterase, Urine 3+ (Neg); Nitrite, Urine Neg (Neg); Protein, Urine 2+ (Neg); Urobilinogen, Urine NORM (Normal)
[2019-07-15 16:03] LABS: Appearance, Urine Cloudy (Clear); Color, Urine Yellow (P-Yellow); Red Blood Cells, Urine TNTC /hpf (0-2); White Blood Cells, Urine TNTC /hpf (0-5)
[2019-07-15 16:04] LABS: Bacteria Many /hpf; Squamous Epithelial Cells Few /hpf (Few)
== END | disposition home or self-care (01) ==
LOC: LAB SHORT 15:07 → LAB 15:07
PROVIDERS: Nurse Practitioner Family
DX: R82.90 Unspecified abnormal findings in urine (principal)
CPT/HCPCS: 81001; 87077; 87086; 87186

== ENCOUNTER → 2019-07-16 | Outpatient (CLI) | payer MEDICARE, OTHER | END | disposition home or self-care (01) | LOC: LAB SHORT 08:01 → LAB 08:01 | DX: L82.1 Other seborrheic keratosis (principal) | CPT/HCPCS: 88305 ==

== ENCOUNTER → 2019-07-30 | Outpatient (CLI) | payer MEDICARE, OTHER ==
[2019-07-30 16:25] LABS: Source, Urine Clean Catch
[2019-07-30 17:25] LABS: Bilirubin, Urine Neg (Neg); Blood, Urine 2+ (Neg); Glucose Qualitative, Urine Neg (Neg); Ketones, Urine Neg (Neg); Leukocyte Esterase, Urine 3+ (Neg); Nitrite, Urine Neg (Neg); Protein, Urine 2+ (Neg); Urobilinogen, Urine NORM (Normal)
[2019-07-30 17:37] LABS: Appearance, Urine Hazy (Clear); Color, Urine Yellow (P-Yellow); White Blood Cells, Urine TNTC /hpf (0-5)
[2019-07-30 17:38] LABS: Bacteria Many /hpf; Squamous Epithelial Cells Few /hpf (Few)
== END ==
LOC: LAB SHORT 13:00 → LAB 13:00
PROVIDERS: Nurse Practitioner Family
DX: R82.90 Unspecified abnormal findings in urine (principal)
CPT/HCPCS: 81001; 87077; 87086; 87147; 87186

== ENCOUNTER 2019-09-01 00:04 | Day surgery (SDC) | payer MEDICARE, OTHER ==
[~2019-09-01 00:04] MED LIST changes: -LOSA50; +LOSA50 PO; -NOVOLOG FL100 UNIT/1 SC; +NOVOLOG FL100 UNIT/3 SC
[2019-09-01 14:27] LABS: BASOPHILS ABSOLUTE AUTO 0.07 K/mm3 (0.00-0.23); BASOPHILS PERCENT AUTO 1 % (0-2); EOSINOPHILS ABSOLUTE AUTO 0.45 K/mm3 (0.00-0.68); EOSINOPHILS PERCENT AUTO 3 % (0-6); Hematocrit 31.6 % (37.0-53.0); Hemoglobin 8.9 g/dL (13.5-17.5); IMMATURE GRAN ABSOLUTE AUTO 0.24 K/mm3 (0.00-0.10); IMMATURE GRAN PERCENT AUTO 2 % (0-1); LYMPHOCYTES ABSOLUTE AUTO 1.86 K/mm3 (0.84-5.20); LYMPHOCYTES PERCENT AUTO 14 % (21-46); MONOCYTES ABSOLUTE AUTO 0.61 K/mm3 (0.16-1.47); MONOCYTES PERCENT AUTO 5 % (4-13); Mean Corpuscular HGB 22.3 pg (26.0-34.0); Mean Corpuscular HGB Conc 28.2 g/dL (31.5-36.5); Mean Corpuscular Volume 79 fL (80-100); Mean Platelet Volume 8.9 fL (9.1-12.4); NEUTROPHILS ABSOLUTE AUTO 9.88 K/mm3 (1.96-9.15); NEUTROPHILS PERCENT AUTO 75 % (41-73); Platelet Count 446 K/mm3 (150-400); RDW Coefficient Variation 19.8 % (11.7-14.2); RDW Standard Deviation 55.5 fL (35.1-46.3); White Blood Cell Count 13.11 K/mm3 (4.00-11.30)
[2019-09-01 14:48] LABS: Alanine Aminotransfer (ALT/SGP 23 U/L (12-78); Albumin, Blood 2.4 g/dL (3.4-5.0); Albumin/Globulin Ratio 0.6 (0.8-1.8); Alk Phos 105 U/L (50-136); Anion Gap 3 mmol/L (6-16); Aspartate Aminotrans (AST/SGOT 19 U/L (12-37); Bilirubin, Total 0.2 mg/dL (0.1-1.0); Blood Urea Nitrogen 24 mg/dL (8-24); Bun/Creatinine Ratio 28.6 (12.0-20.0); CHOL/HDL RATIO 6.5; CO2, Blood 34 mmol/L (21-32); Calcium, Blood 8.5 mg/dL (8.5-10.1); Chloride, Blood 103 mmol/L (98-108); Cholesterol 189 mg/dL (50-200); Creatinine, Blood 0.84 mg/dL (0.60-1.20); Globulin, Blood 4.1 g/dL (2.2-4.0); Glomerular Filtration Rate >60 (60-); Glucose, Blood 162 mg/dL (70-99); HDL Cholesterol 29 mg/dL (>39); LDL/HDL RATIO 3.3; Low Density Lipoprotein Chol 97 mg/dL (0-110); Potassium, Blood 4.5 mmol/L (3.5-5.5); Sodium, Blood 140 mmol/L (136-145); Total Protein, Blood 6.5 g/dL (6.4-8.2); Triglycerides 316 mg/dL (30-160); Very Low Density Lipoprot Chol 63 mg/dL (6-32)
== END 2019-09-01 14:05 | disposition home or self-care (01) ==
LOC: ATC 00:04
PROVIDERS: Nurse Practitioner Family
DX: E11.9 Type 2 diabetes mellitus without complications (principal); L89.893 Pressure ulcer of other site, stage 3; I10 Essential (primary) hypertension; N31.9 Neuromuscular dysfunction of bladder, unspecified; D50.9 Iron deficiency anemia, unspecified; G82.21 Paraplegia, complete; L89.324 Pressure ulcer of left buttock, stage 4; L89.313 Pressure ulcer of right buttock, stage 3; M25.511 Pain in right shoulder; E66.2 Morbid (severe) obesity with alveolar hypoventilation; Z79.4 Long term (current) use of insulin; Z79.899 Other long term (current) drug therapy; Z88.2 Allergy status to sulfonamides; Z88.1 Allergy status to other antibiotic agents; Z96.0 Presence of urogenital implants
CPT/HCPCS: 36591; 80053; 80061; 83036; 85025; J1642

== ENCOUNTER 2019-10-08 20:35 | Inpatient (IN) | payer MEDICARE, OTHER ==
[~2019-10-08] VITALS: Ht 188 cm; Wt 149.6 kg
[2019-10-08 21:17] LABS: Alanine Aminotransfer (ALT/SGP 25 U/L (12-78); Albumin, Blood 2.8 g/dL (3.4-5.0); Albumin/Globulin Ratio 0.6 (0.8-1.8); Alk Phos 101 U/L (50-136); Anion Gap 4 mmol/L (6-16); Aspartate Aminotrans (AST/SGOT 17 U/L (12-37); Bilirubin, Total 0.3 mg/dL (0.1-1.0); Blood Urea Nitrogen 22 mg/dL (8-24); Bun/Creatinine Ratio 25.4 (12.0-20.0); CO2, Blood 29 mmol/L (21-32); Calcium, Blood 8.9 mg/dL (8.5-10.1); Chloride, Blood 101 mmol/L (98-108); Creatinine, Blood 0.87 mg/dL (0.60-1.20); Globulin, Blood 4.4 g/dL (2.2-4.0); Glomerular Filtration Rate >60 (60-); Glucose, Blood 224 mg/dL (70-99); Potassium, Blood 5.5 mmol/L (3.5-5.5); Sodium, Blood 134 mmol/L (136-145); Total Protein, Blood 7.2 g/dL (6.4-8.2)
[2019-10-08 21:52] LABS: BASOPHILS PERCENT AUTO 0 % (0-2); EOSINOPHILS ABSOLUTE AUTO 0.11 K/mm3 (0.00-0.68); EOSINOPHILS PERCENT AUTO 0 % (0-6); Hematocrit 35.1 % (37.0-53.0); Hemoglobin 9.9 g/dL (13.5-17.5); IMMATURE GRAN ABSOLUTE AUTO 0.22 K/mm3 (0.00-0.10); IMMATURE GRAN PERCENT AUTO 1 % (0-1); LYMPHOCYTES PERCENT AUTO 3 % (21-46); MONOCYTES ABSOLUTE AUTO 0.77 K/mm3 (0.16-1.47); MONOCYTES PERCENT AUTO 3 % (4-13); Mean Corpuscular HGB Conc 28.2 g/dL (31.5-36.5); Mean Corpuscular Volume 78 fL (80-100); Mean Platelet Volume 8.9 fL (9.1-12.4); NEUTROPHILS ABSOLUTE AUTO 23.93 K/mm3 (1.96-9.15); NEUTROPHILS PERCENT AUTO 92 % (41-73); Platelet Count 426 K/mm3 (150-400); RDW Coefficient Variation 18.6 % (11.7-14.2); RDW Standard Deviation 52.5 fL (35.1-46.3); Red Blood Cell Count 4.51 M/mm3 (4.30-5.90); White Blood Cell Count 25.93 K/mm3 (4.00-11.30)
[2019-10-08 23:28] LABS: Source, Urine Clean Catch
[2019-10-08 23:50] LABS: Bilirubin, Urine Neg (Neg); Blood, Urine 5+ (Neg); Glucose Qualitative, Urine Neg (Neg); Ketones, Urine Neg (Neg); Leukocyte Esterase, Urine 3+ (Neg); Nitrite, Urine Pos (Neg); Protein, Urine 3+ (Neg); Specific Gravity, Urine 1.005 (1.003-1.022); Urobilinogen, Urine NORM (Normal)
[2019-10-09 00:31] LABS: Appearance, Urine Cloudy (Clear); Color, Urine Yellow (P-Yellow)
[2019-10-09 00:33] LABS: Red Blood Cells, Urine 25-50 /hpf (0-2); White Blood Cells, Urine 50-100 /hpf (0-5)
[2019-10-09 00:34] LABS: Bacteria Mod /hpf; Squamous Epithelial Cells Few /hpf (Few); Transitional Epithelial Cells Few /hpf (0-Rare)
[2019-10-09] MEDS ORDERED: MONUROL3 GM PO (00:44)
[2019-10-09] MEDS ORDERED: HUMULIN N100 UNIT/5 SC (00:46)
--- NOTE | 2019-10-09 05:39 | NUR ---
PCU ADMIT / SHIFT SUMMARY PT BROUGHT TO PCU-02 FROM ER BY ANUP @ APPROX 0230, ACCOMPANIED BY SPOUSE. PT A&0 X4, SLOW TO RESPOND. PT SLID OVER FROM [facility] TO PCU BED BY 4 STAFF MEMBERS. PT QUADREPLEGIC W/ L LEG AMPUTATION AT HIP. BP ELEVATED, OTHERWISE VSS. MONITOR SHOWS NSR, HR 80's. SPO2 > 92% ON 3L NC WHICH IS PT's REPORTED HOME O2 USE. TUNNELING PRESSURE ULCERS NOTED TO BILAT HIPS. ULCER ALSO NOTED TO SOLE OF R FOOT. PHOTOS TAKEN W/ PT's CONSENT & PLACED IN CHART. CHRONIC WEN CATH REPORTED TO HAVE BEEN CHANGED IN ER, DRAINING CLOUDY, YELLOW URINE. COLOSTOMY TO LQ W/ FORMED STOOL PRESENT. MEDPIDORT TO R CHEST WALL INFUSING NS GTT PER ORDERS. PT C/O CHRONIC R SHOULDER PAIN, MEDICATION PER EMAR/PT REQUEST. WILL CONTINUE TO MONITOR & PROVIDE CARE UNTIL REPORT OFF TO DAY SHIFT RN.
[2019-10-09 09:21] LABS: BASOPHILS ABSOLUTE AUTO 0.07 K/mm3 (0.00-0.23); BASOPHILS PERCENT AUTO 0 % (0-2); EOSINOPHILS ABSOLUTE AUTO 0.03 K/mm3 (0.00-0.68); EOSINOPHILS PERCENT AUTO 0 % (0-6); Hematocrit 34.2 % (37.0-53.0); Hemoglobin 9.5 g/dL (13.5-17.5); IMMATURE GRAN ABSOLUTE AUTO 0.22 K/mm3 (0.00-0.10); IMMATURE GRAN PERCENT AUTO 1 % (0-1); LYMPHOCYTES ABSOLUTE AUTO 0.64 K/mm3 (0.84-5.20); LYMPHOCYTES PERCENT AUTO 3 % (21-46); MONOCYTES ABSOLUTE AUTO 0.61 K/mm3 (0.16-1.47); MONOCYTES PERCENT AUTO 3 % (4-13); Mean Corpuscular HGB 21.8 pg (26.0-34.0); Mean Corpuscular HGB Conc 27.8 g/dL (31.5-36.5); Mean Corpuscular Volume 79 fL (80-100); Mean Platelet Volume 8.9 fL (9.1-12.4); NEUTROPHILS PERCENT AUTO 92 % (41-73); Platelet Count 394 K/mm3 (150-400); RDW Coefficient Variation 18.6 % (11.7-14.2); RDW Standard Deviation 52.8 fL (35.1-46.3); Red Blood Cell Count 4.35 M/mm3 (4.30-5.90); White Blood Cell Count 18.87 K/mm3 (4.00-11.30)
[2019-10-09 09:50] LABS: Alanine Aminotransfer (ALT/SGP 33 U/L (12-78); Albumin, Blood 2.6 g/dL (3.4-5.0); Albumin/Globulin Ratio 0.6 (0.8-1.8); Alk Phos 92 U/L (50-136); Anion Gap 3 mmol/L (6-16); Aspartate Aminotrans (AST/SGOT 23 U/L (12-37); Bilirubin, Total 0.4 mg/dL (0.1-1.0); Blood Urea Nitrogen 22 mg/dL (8-24); Bun/Creatinine Ratio 32.7 (12.0-20.0); CO2, Blood 32 mmol/L (21-32); Calcium, Blood 8.6 mg/dL (8.5-10.1); Chloride, Blood 100 mmol/L (98-108); Creatinine, Blood 0.67 mg/dL (0.60-1.20); Globulin, Blood 4.4 g/dL (2.2-4.0); Glomerular Filtration Rate >60 (60-); Glucose, Blood 202 mg/dL (70-99); Potassium, Blood 4.7 mmol/L (3.5-5.5); Sodium, Blood 135 mmol/L (136-145)
[2019-10-10 04:04] LABS: BASOPHILS ABSOLUTE AUTO 0.03 K/mm3 (0.00-0.23); BASOPHILS PERCENT AUTO 0 % (0-2); EOSINOPHILS ABSOLUTE AUTO 0.19 K/mm3 (0.00-0.68); EOSINOPHILS PERCENT AUTO 2 % (0-6); Hematocrit 31.2 % (37.0-53.0); Hemoglobin 8.6 g/dL (13.5-17.5); IMMATURE GRAN ABSOLUTE AUTO 0.11 K/mm3 (0.00-0.10); IMMATURE GRAN PERCENT AUTO 1 % (0-1); LYMPHOCYTES PERCENT AUTO 16 % (21-46); MONOCYTES ABSOLUTE AUTO 0.33 K/mm3 (0.16-1.47); MONOCYTES PERCENT AUTO 4 % (4-13); Mean Corpuscular HGB Conc 27.6 g/dL (31.5-36.5); Mean Corpuscular Volume 80 fL (80-100); Mean Platelet Volume 9.2 fL (9.1-12.4); NEUTROPHILS ABSOLUTE AUTO 7.33 K/mm3 (1.96-9.15); NEUTROPHILS PERCENT AUTO 77 % (41-73); Platelet Count 332 K/mm3 (150-400); RDW Coefficient Variation 18.4 % (11.7-14.2); Red Blood Cell Count 3.91 M/mm3 (4.30-5.90); White Blood Cell Count 9.49 K/mm3 (4.00-11.30)
[2019-10-10 04:20] LABS: Anion Gap 3 mmol/L (6-16); Blood Urea Nitrogen 19 mg/dL (8-24); Bun/Creatinine Ratio 28.9 (12.0-20.0); CO2, Blood 34 mmol/L (21-32); Calcium, Blood 8.1 mg/dL (8.5-10.1); Chloride, Blood 102 mmol/L (98-108); Creatinine, Blood 0.66 mg/dL (0.60-1.20); Glomerular Filtration Rate >60 (60-); Glucose, Blood 138 mg/dL (70-99); Sodium, Blood 139 mmol/L (136-145)
--- NOTE | 2019-10-10 06:19 | NUR ---
SHIFT SUMMARY PT A&O X4. BP ELEVATED, OTHERWISE VSS. SPO2 > 92% ON 3L NC WHICH IS PT's REPORTED HOME O2 USE. MONITOR SHOWS SR, HR 80's-90's. Q2H REPOSITIONING. CHRONIC WEN CATH PATENT & DRAINING. COLOSTOMY W/ FORMED STOOLS. PT C/O R SHOULDER PAIN, MEDICATING PER PT REQUEST/EMAR T/O SHIFT. PT REPORTS ONLY OXYCODONE TO BE EFFECTIVE IN MANAGING PT PAIN. TUNNELING ULCERS TO BILAT HIPS PRESENT. PT ON ROTATING AIR MATTRESS, REPOSITIONING W/ PILLOWS WELL. WILL CONTINUE TO MONITOR & PROVIDE CARE UNTIL REPORT OFF TO DAY SHIFT RN.
--- NOTE | 2019-10-10 09:36 | NUR ---
PT AWAKE SITTING UP IN BED THIS AM. PT C/O CHRONIC SHOULDER PAIN; MEDICATED PER EMAR, NO OTHER COMPLAINTS. SURGICAL CONSULT ON HOLD PER PT REQUEST, PT WILL DISCUSS W AND LET US KNOW WHAT HE WOULD LIKE TO DO. DR SPENCE IN TO SEE PT THIS AM; SOME MED CHANGES MADE TO MATCH PT'S HOME MED DOSES.
--- NOTE | 2019-10-10 10:16 | NUR ---
PT C/O NAUSEA AFTER BREAKFAST. SKIN PALE. ZOFRAN GIVEN
--- NOTE | 2019-10-10 17:33 | NUR ---
WOUND CARE COMPLETED AT 1300. PT ABLE TO GIVE THOROUGH WOUND CARE INSTRUCTION. TUNNELING NOTED TO ALL THREE WOUNDS TO BUTTOCKS. TWO WOUNDS NOTED TO LEFT BUTTOCKS, ONE TO RIGHT SIDE. FAINT FOUL ODOR PRESENT. HENNING TO S/S DISCHARGE NOTED. RED BLOOD NOTED TO SOME EDGES. WOUNDS PACKED WITH WET TO DRY DRSG USING KERLIX AND SALINE, THIS COVERED BY ABD PADS AND MEDIPORE TAPE. SKIN SURROUNDING WOUNDS PRUNED WITH SOME SLOUGHING OF THE SKIN. PT ABLE TO ASSIST WITH TURNING. CATH CARE COMPLETED WELL. SM AMT OF SOLID STOOL TO COLOSTOMY BAG. STOMA HEALTHY APPEARING. WOUND TO RIGHT LAT ANKLE CLEANED AND DRSG APPLIED. HEEL FLOATED. NORVASC GIVEN FOR HTN WITH SOME IMPROVEMENT NOTED. PT STATES PAIN 4/10 WHICH IS HIS GOAL.
--- NOTE | 2019-10-11 05:32 | NUR ---
SHIFT SUMMARY PT A&O X4. BP ELEVATED, MEDICATED W/ PRN IV HYDRALAZINE PER EMAR W/ IMPROVEMENT. OTHERWISE VSS. MONITOR SHOWS NSR, HR 70's-80's. SPO2 > 92% ON PT's HOME BASELINE USE OF 3L NC. ULCERS TO BUTTOCKS & R FOOT NOTED. Q2H REPOSITIONING W/ MAX ASSIST. R LEG ELEVATED. PT W/ L LEG AMPUTATION. WEN CATH PATENT & DRAINING. COLOSTOMY TO L QUADRANT W/ FORMED STOOL. MEDIPORT INFUSING NS GTT @ KVO. PT MEDICATED FOR R SHOULDER PAIN W/ SCHEDULED MORPHINE X1 & PRN OXYCODONE X2 PER EMAR THIS SHIFT. PT ALSO MEDICATED W/ PRN TYLENOL FOR HEADACHE X1 THIS SHIFT. PT REPORTS "MY PAIN IS THE BEST IT'S BEEN SINCE I'VE BEEN HERE." PT RATING PAIN 2/10 THIS MORNING. PT AWAITING POSSIBLE SURGICAL CONSULT ORDER, PENDING PT & PT SPOUSE DECISION ON DIRECTION OF CARE FOR WOUNDS. WILL CONTINUE TO MONITOR & PROVIDE CARE UNTIL REPORT OFF TO DAY SHIFT RN.
--- NOTE | 2019-10-11 12:55 | NUR ---
Update: Assumed care of pt. Pt sitting up comfortably in bed, just finished lunch. States that he is having shoulder pain and a headache. Shoulder pain is chronic. Pt was medicated with tylenol per orders. LS clear. HR reg. Pt 97% on 3L oxygen. States that he would like to keep it on incase he doses off to sleep. States he wears it at home too. BT positive. Ostomy with bag intact. Pt states that it is fine right now. BT positive. Pt denies other needs at this time. Will continue to monitor. Pt was [employer] no-tele. Call light in reach.
--- NOTE | 2019-10-11 15:30 | NUR ---
assumed care of ptblack report from previous RN Lc, who will continue to assist.
--- NOTE | 2019-10-11 16:01 | NUR ---
ASSUSMED CARE OF PT, RECVD REPORT FROM PREVIOUS ALEX EWING. PT A/O X 4, PLEASANT/COOPERATIVE. PT MEDICATED PER MAR FOR SBP 177 PER MAR, WILL REASSESS BP IN 15 MIN; CBG 154, NO COVERAGE NEEDED
--- NOTE | 2019-10-11 16:47 | NUR ---
pt has orders for transfer to ICU; public relations counselor Lc will provide report to BLOCK MACHINE OPERATOR for transport
--- NOTE | 2019-10-11 18:48 | NUR ---
wrist cuff sbp of 166, changed to extra large arm cuff, BP 119/55. pt a/o x 4, pt a/o x 4, pleasant/cooperative. pt reports no pain at this time, sitting up in bed watching television and playing on his computer, cheerful and laughing. pt reports no headache/dizziness/cp/sob, no n/v. bed rails up x 2, bed in lowest position, call light within reach
--- NOTE | 2019-10-11 20:10 | NUR ---
CARE ASSUMED REPORT RECEIVED, CARE ASSUMED AT 1900. PT ALERT, ORIENTED, EXPRESSING NEEDS CLEARLY. REPORTING PAIN 6/10, CHRONIC AND REQUESTING OXYCODONE. MEDICATIONS PROVIDED. PT ASSISTED TO TURN. VITALS STABLE. SEE SHIFT ASSESSMENT. CALL LIGHT IN REACH, PT AGREEALE TO CALL FOR NEEDS.
--- NOTE | 2019-10-12 05:34 | NUR ---
SUMMARY PT HAS HAD UNEVENTFUL NIGHT. VITALS STABLE. PT CALLING APPROPRIATELY FOR NEEDS. ALLOWS FOR REPOSITIONING AND SOME ADL'S. REQUESTING STOOL SOFTENER, BUT COLOSTOMY NOTED TO BE FILLED AND CHANGED SO PT NO LONGER REQUESTING. COLOSTOMY BAG CHANGED. WOUND DRESSING C/D/I. MODERATE OUTPUT FROM WEN. SEE I/O FLOWSHEET. PT CALLING APPROPRIATELY FOR NEEDS. MEDICATED APPROXIMATELY EVERY 4 HOURS WITH OXYCODONE AND SCHEDULED PAIN MEDICATION PER PT REQUEST AND HOME REGIME. PT REPORTS PAIN HAS BEEN WELL MANAGED THROUGHOUT SHIFT.
[2019-10-12] MEDS ORDERED: CEPH500 PO (12:28)
[2019-10-12] MEDS ORDERED: AMLO5 PO (12:28)
--- NOTE | 2019-10-12 17:23 | NUR ---
DISCHARGE D/C TO HOME WITH HIS . D/C INSTRUCTIONS PROVIDED & EXPLAINED TP BOTH THE PATIENT AND HIS . WOUND CARE INSTRUCTIONS WERE PROVIDED TO PT'S , SHE STATES SHE HAS A A VERY GOOD UNDERSTANDING OF HOW TO TAKE CARE OF THEM AND THAT SHE HAS DONE THE WET TO DRY DRSG'S THAT IS RECOMMENDING PREVIOUSLY. SHE ALSO STATES HOME HEALTH COME TO THE HOUSE TWICE WEEKLY TO ASSIST WITH NEEDS & SUPPLIES. PT WAS MEDICATED FOR PAIN PRIOR TO LEAVING PER REQUEST/EMAR. RESP UNLABORED, VSS. PT ENC TO F/U [facility]DESTA FOR ANY PROBLEMS OR CONCERNS.
== END 2019-10-12 15:54 | disposition home or self-care (01) | DRG 698 ==
LOC: ER 20:35 → PCU 10-09 01:55
PROVIDERS: Emergency Medicine; Internal Medicine; Physician Assistant; ADMIT Internal Medicine
DX: T83.511A Infection and inflammatory reaction due to indwelling urethral catheter, initial encounter (principal); L89.44 Pressure ulcer of contiguous site of back, buttock and hip, stage 4; A41.59 Other Gram-negative sepsis; G82.20 Paraplegia, unspecified; J96.11 Chronic respiratory failure with hypoxia; E66.2 Morbid (severe) obesity with alveolar hypoventilation; Z74.01 Bed confinement status; E11.9 Type 2 diabetes mellitus without complications; Z79.4 Long term (current) use of insulin; Z89.612 Acquired absence of left leg above knee; N31.9 Neuromuscular dysfunction of bladder, unspecified; E86.0 Dehydration; Z66 Do not resuscitate; F11.90 Opioid use, unspecified, uncomplicated; Z99.81 Dependence on supplemental oxygen; Z68.38 Body mass index [BMI] 38.0-38.9, adult
CPT/HCPCS: 36415; 51702; 71045; 74177; 80048; 80053; 81001; 82947; 83605; 85025; 87040; 87077; 87086; 87186; 93005; 93010; 96365-59; 96367; 96375-59; 99285-25; A9270; A9270-GY; J0360; J0696; J1642; J1650; J1815; J1885; J2020; J2405; J7030; J7050; J7120; Q9967

== ENCOUNTER → 2019-10-21 | Outpatient (CLI) | payer MEDICARE, OTHER ==
[~2019-10-21] MED LIST changes: +AMLO5 PO; +HUMULIN N100 UNIT/5 SC; +MONUROL3 GM PO
== END | disposition home or self-care (01) ==
LOC: LAB 17:38 → LAB SHORT 17:38
DX: L89.513 Pressure ulcer of right ankle, stage 3 (principal)
CPT/HCPCS: 87070; 87205

== ENCOUNTER → 2019-10-23 | Outpatient (CLI) | payer MEDICARE, OTHER | END | disposition home or self-care (01) | LOC: LAB SRC 12:18 → LAB SHORT 12:18 | DX: R82.90 Unspecified abnormal findings in urine (principal) | CPT/HCPCS: 87077; 87086; 87186 ==

== ENCOUNTER 2019-12-15 00:30 | Day surgery (SDC) | payer MEDICARE, OTHER ==
[~2019-12-15 00:30] MED LIST changes: +Acidophilus1 EAC1 PO; +Hair, Skin & N1 EACH PO; -METAMUCIL POWD174 GM PO; +NYSTOP15 GM TOP; -Pedi-Dri 100,0060 GM TOP; -Thera-M1 EACH PO; +[UNRECOGNIZED DRUG - OTHER] PO
[2019-12-15 16:07] LABS: BASOPHILS ABSOLUTE AUTO 0.11 K/mm3 (0.00-0.23); BASOPHILS PERCENT AUTO 1 % (0-2); EOSINOPHILS PERCENT AUTO 1 % (0-6); Hematocrit 36.4 % (37.0-53.0); Hemoglobin 10.5 g/dL (13.5-17.5); IMMATURE GRAN ABSOLUTE AUTO 0.44 K/mm3 (0.00-0.10); IMMATURE GRAN PERCENT AUTO 3 % (0-1); LYMPHOCYTES ABSOLUTE AUTO 1.63 K/mm3 (0.84-5.20); LYMPHOCYTES PERCENT AUTO 9 % (21-46); MONOCYTES ABSOLUTE AUTO 0.79 K/mm3 (0.16-1.47); MONOCYTES PERCENT AUTO 5 % (4-13); Mean Corpuscular HGB Conc 28.8 g/dL (31.5-36.5); Mean Corpuscular Volume 76 fL (80-100); Mean Platelet Volume 8.9 fL (9.1-12.4); NEUTROPHILS ABSOLUTE AUTO 14.09 K/mm3 (1.96-9.15); NEUTROPHILS PERCENT AUTO 82 % (41-73); Platelet Count 545 K/mm3 (150-400); RDW Coefficient Variation 18.4 % (11.7-14.2); RDW Standard Deviation 50.8 fL (35.1-46.3); Red Blood Cell Count 4.77 M/mm3 (4.30-5.90); White Blood Cell Count 17.26 K/mm3 (4.00-11.30)
[2019-12-15 16:29] LABS: Percent Saturation 8.1 % (20.0-50.0)
[2019-12-16] MEDS ORDERED: LOSA50 PO (01:01)
[2019-12-16] MEDS ORDERED: [UNRECOGNIZED DRUG - OTHER] (18:26)
== END 2019-12-15 15:57 | disposition home or self-care (01) ==
LOC: ATC 00:30
PROVIDERS: Nurse Practitioner Family
DX: D50.9 Iron deficiency anemia, unspecified (principal); I10 Essential (primary) hypertension; E78.5 Hyperlipidemia, unspecified; N31.9 Neuromuscular dysfunction of bladder, unspecified; E11.36 Type 2 diabetes mellitus with diabetic cataract; H26.9 Unspecified cataract; G47.30 Sleep apnea, unspecified; M19.90 Unspecified osteoarthritis, unspecified site; E66.9 Obesity, unspecified; Z79.1 Long term (current) use of non-steroidal anti-inflammatories (NSAID); Z79.4 Long term (current) use of insulin; Z79.899 Other long term (current) drug therapy; Z88.1 Allergy status to other antibiotic agents; Z88.2 Allergy status to sulfonamides; Z99.3 Dependence on wheelchair; Z51.5 Encounter for palliative care
CPT/HCPCS: 36591; 82728; 83540; 83550; 85025; J1642

== ENCOUNTER 2019-12-15 23:19 | Inpatient (IN) | payer MEDICARE, OTHER ==
[~2019-12-15] VITALS: Ht 190.5 cm; Wt 136.1 kg
[2019-12-16 00:59] LABS: BASOPHILS ABSOLUTE AUTO 0.08 K/mm3 (0.00-0.23); BASOPHILS PERCENT AUTO 1 % (0-2); EOSINOPHILS ABSOLUTE AUTO 0.41 K/mm3 (0.00-0.68); EOSINOPHILS PERCENT AUTO 3 % (0-6); Hematocrit 34.6 % (37.0-53.0); Hemoglobin 9.9 g/dL (13.5-17.5); IMMATURE GRAN ABSOLUTE AUTO 0.32 K/mm3 (0.00-0.10); IMMATURE GRAN PERCENT AUTO 2 % (0-1); LYMPHOCYTES ABSOLUTE AUTO 2.67 K/mm3 (0.84-5.20); LYMPHOCYTES PERCENT AUTO 16 % (21-46); MONOCYTES ABSOLUTE AUTO 0.96 K/mm3 (0.16-1.47); MONOCYTES PERCENT AUTO 6 % (4-13); Mean Corpuscular HGB 21.8 pg (26.0-34.0); Mean Corpuscular HGB Conc 28.6 g/dL (31.5-36.5); Mean Corpuscular Volume 76 fL (80-100); Mean Platelet Volume 8.7 fL (9.1-12.4); NEUTROPHILS ABSOLUTE AUTO 12.13 K/mm3 (1.96-9.15); NEUTROPHILS PERCENT AUTO 73 % (41-73); Platelet Count 476 K/mm3 (150-400); RDW Coefficient Variation 18.6 % (11.7-14.2); RDW Standard Deviation 51.1 fL (35.1-46.3); Red Blood Cell Count 4.55 M/mm3 (4.30-5.90); White Blood Cell Count 16.57 K/mm3 (4.00-11.30)
[2019-12-16] MEDS ORDERED: LOSA50 PO (01:01)
[2019-12-16 01:20] LABS: Alanine Aminotransfer (ALT/SGP 23 U/L (12-78); Albumin, Blood 2.7 g/dL (3.4-5.0); Albumin/Globulin Ratio 0.6 (0.8-1.8); Alk Phos 100 U/L (50-136); Anion Gap 4 mmol/L (6-16); Aspartate Aminotrans (AST/SGOT 13 U/L (12-37); Bilirubin, Total 0.2 mg/dL (0.1-1.0); Blood Urea Nitrogen 27 mg/dL (8-24); Bun/Creatinine Ratio 39.8 (12.0-20.0); CO2, Blood 35 mmol/L (21-32); CPK Creatine Kinase 94 U/L (39-308); Calcium, Blood 8.8 mg/dL (8.5-10.1); Chloride, Blood 100 mmol/L (98-108); Creatine Kinase MB 1.3 ng/mL (0.0-3.6); Creatine Kinase MB Index 1.4 (0.0-4.0); Creatinine, Blood 0.68 mg/dL (0.60-1.20); Globulin, Blood 4.2 g/dL (2.2-4.0); Glomerular Filtration Rate >60 (60-); Glucose, Blood 142 mg/dL (70-99); Potassium, Blood 4.2 mmol/L (3.5-5.5); Sodium, Blood 139 mmol/L (136-145); Total Protein, Blood 6.9 g/dL (6.4-8.2)
[2019-12-16 12:27] LABS: Source, Urine Catheter
[2019-12-16 12:44] LABS: Appearance, Urine Hazy (Clear); Bilirubin, Urine Neg (Neg); Blood, Urine 4+ (Neg); Color, Urine Yellow (P-Yellow); Glucose Qualitative, Urine Neg (Neg); Ketones, Urine Neg (Neg); Leukocyte Esterase, Urine 3+ (Neg); Nitrite, Urine Neg (Neg); Protein, Urine 3+ (Neg); Specific Gravity, Urine 1.015 (1.003-1.022); Urobilinogen, Urine NORM (Normal)
[2019-12-16 12:54] LABS: Amorphous Light (0-Heavy); Bacteria Few /hpf; Mucus Light (0-Heavy); Squamous Epithelial Cells Mod /hpf (Few); White Blood Cells, Urine 25-50 /hpf (0-5)
[2019-12-16 13:00] LABS: BASOPHILS ABSOLUTE AUTO 0.11 K/mm3 (0.00-0.23); BASOPHILS PERCENT AUTO 1 % (0-2); EOSINOPHILS ABSOLUTE AUTO 0.21 K/mm3 (0.00-0.68); EOSINOPHILS PERCENT AUTO 1 % (0-6); Hematocrit 36.9 % (37.0-53.0); Hemoglobin 10.4 g/dL (13.5-17.5); IMMATURE GRAN PERCENT AUTO 2 % (0-1); LYMPHOCYTES ABSOLUTE AUTO 1.47 K/mm3 (0.84-5.20); LYMPHOCYTES PERCENT AUTO 10 % (21-46); MONOCYTES ABSOLUTE AUTO 0.84 K/mm3 (0.16-1.47); MONOCYTES PERCENT AUTO 6 % (4-13); Mean Corpuscular HGB 21.6 pg (26.0-34.0); Mean Corpuscular HGB Conc 28.2 g/dL (31.5-36.5); Mean Corpuscular Volume 77 fL (80-100); Mean Platelet Volume 9.1 fL (9.1-12.4); NEUTROPHILS ABSOLUTE AUTO 11.64 K/mm3 (1.96-9.15); NEUTROPHILS PERCENT AUTO 80 % (41-73); Platelet Count 524 K/mm3 (150-400); RDW Coefficient Variation 18.6 % (11.7-14.2); RDW Standard Deviation 50.9 fL (35.1-46.3); Red Blood Cell Count 4.81 M/mm3 (4.30-5.90); White Blood Cell Count 14.57 K/mm3 (4.00-11.30)
[2019-12-16 13:34] LABS: Alanine Aminotransfer (ALT/SGP 22 U/L (12-78); Albumin, Blood 2.8 g/dL (3.4-5.0); Albumin/Globulin Ratio 0.6 (0.8-1.8); Alk Phos 95 U/L (50-136); Anion Gap 4 mmol/L (6-16); Aspartate Aminotrans (AST/SGOT 12 U/L (12-37); Bilirubin, Total 0.4 mg/dL (0.1-1.0); Blood Urea Nitrogen 24 mg/dL (8-24); Bun/Creatinine Ratio 32.7 (12.0-20.0); CO2, Blood 34 mmol/L (21-32); Calcium, Blood 9.4 mg/dL (8.5-10.1); Chloride, Blood 100 mmol/L (98-108); Creatinine, Blood 0.74 mg/dL (0.60-1.20); Globulin, Blood 4.4 g/dL (2.2-4.0); Glomerular Filtration Rate >60 (60-); Glucose, Blood 239 mg/dL (70-99); Potassium, Blood 4.7 mmol/L (3.5-5.5); Sodium, Blood 138 mmol/L (136-145); Total Protein, Blood 7.2 g/dL (6.4-8.2)
[2019-12-16] MEDS ORDERED: [UNRECOGNIZED DRUG - OTHER] (18:26)
[2019-12-17 12:25] LABS: Anion Gap 3 mmol/L (6-16); Blood Urea Nitrogen 27 mg/dL (8-24); CO2, Blood 35 mmol/L (21-32); Calcium, Blood 8.6 mg/dL (8.5-10.1); Chloride, Blood 101 mmol/L (98-108); Creatinine, Blood 0.68 mg/dL (0.60-1.20); Glomerular Filtration Rate >60 (60-); Glucose, Blood 157 mg/dL (70-99); Potassium, Blood 3.9 mmol/L (3.5-5.5); Sodium, Blood 139 mmol/L (136-145)
[2019-12-17 13:33] LABS: Hematocrit 32.5 % (37.0-53.0); Mean Corpuscular HGB 21.5 pg (26.0-34.0); Mean Corpuscular HGB Conc 27.7 g/dL (31.5-36.5); Mean Corpuscular Volume 78 fL (80-100); Mean Platelet Volume 9.1 fL (9.1-12.4); Platelet Count 435 K/mm3 (150-400); RDW Coefficient Variation 18.4 % (11.7-14.2); RDW Standard Deviation 51.5 fL (35.1-46.3); Red Blood Cell Count 4.19 M/mm3 (4.30-5.90); White Blood Cell Count 10.27 K/mm3 (4.00-11.30)
[2019-12-17] MEDS ORDERED: Nitrofurantoin100 M1 PO (14:02)
[2019-12-17] MEDS ORDERED: TIZA4 PO (14:03)
== END 2019-12-17 15:35 | disposition home or self-care (01) | DRG 555 ==
LOC: ER 23:19 → MEDS 23:20 → ERHOLD 23:20 → ICUE 23:20 → MEDS 23:20 → ERHOLD 12-16 06:07 → ICUE 12-16 06:07 → ERHOLD 12-16 16:18 → ICUE 12-16 16:18 → MEDS 12-16 16:18 → ICUE 12-16 17:56 → MEDS 12-16 17:56
PROVIDERS: Emergency Medicine; Internal Medicine; ADMIT Internal Medicine
DX: M62.838 Other muscle spasm (principal); L89.44 Pressure ulcer of contiguous site of back, buttock and hip, stage 4; G82.20 Paraplegia, unspecified; N39.0 Urinary tract infection, site not specified; S24.103S Unspecified injury at T7-T10 level of thoracic spinal cord, sequela; J45.909 Unspecified asthma, uncomplicated; D50.9 Iron deficiency anemia, unspecified; N31.9 Neuromuscular dysfunction of bladder, unspecified; E66.9 Obesity, unspecified; E11.9 Type 2 diabetes mellitus without complications; G47.33 Obstructive sleep apnea (adult) (pediatric); Z66 Do not resuscitate; Z96.89 Presence of other specified functional implants; Z88.2 Allergy status to sulfonamides; Z88.1 Allergy status to other antibiotic agents; Z23 Encounter for immunization; Z79.899 Other long term (current) drug therapy; Z79.2 Long term (current) use of antibiotics; Z79.4 Long term (current) use of insulin; Z89.612 Acquired absence of left leg above knee; Z93.3 Colostomy status; Z68.37 Body mass index [BMI] 37.0-37.9, adult
CPT/HCPCS: 36415; 36591; 51703; 80048; 80053; 81001; 82550; 82553; 82728; 82947; 83540; 83550; 83605; 83735; 84145; 85025; 85027; 87077; 87086; 87186; 96374; 96375; 99284; A9270; A9270-GY; G0008; J0696; J1170; J1642; J1650; J1815; J2060; J3010; J3360; J7030; J7050; Q2038

== ENCOUNTER → 2019-12-28 | Outpatient (CLI) | payer MEDICARE, OTHER ==
[~2019-12-28] MED LIST changes: +Nitrofurantoin100 M1 PO; +TIZA4 PO; +[UNRECOGNIZED DRUG - OTHER]
== END | disposition home or self-care (01) ==
LOC: LAB SHORT 10:51 → LAB SRC 10:51
DX: R82.90 Unspecified abnormal findings in urine (principal)
CPT/HCPCS: 87086

== ENCOUNTER → 2020-01-05 | Outpatient (CLI) | payer MEDICARE, OTHER | END | disposition home or self-care (01) | LOC: LAB 17:36 → LAB SHORT 17:36 | DX: L89.893 Pressure ulcer of other site, stage 3 (principal) | CPT/HCPCS: 87070; 87205 ==

== ENCOUNTER → 2020-01-11 | Outpatient (CLI) | payer MEDICARE, OTHER | END | disposition home or self-care (01) | LOC: LAB 14:44 → LAB SHORT 14:44 | DX: L89.893 Pressure ulcer of other site, stage 3 (principal) | CPT/HCPCS: 87070; 87205 ==

== ENCOUNTER 2020-01-20 02:54 | Day surgery (SDC) | payer MEDICARE, OTHER ==
[2020-01-20 14:57] LABS: Test Name PNEUMO 23
[2020-01-20 15:02] LABS: BASOPHILS ABSOLUTE AUTO 0.08 K/mm3 (0.00-0.23); BASOPHILS PERCENT AUTO 1 % (0-2); EOSINOPHILS ABSOLUTE AUTO 0.39 K/mm3 (0.00-0.68); EOSINOPHILS PERCENT AUTO 3 % (0-6); Hemoglobin 9.5 g/dL (13.5-17.5); IMMATURE GRAN ABSOLUTE AUTO 0.21 K/mm3 (0.00-0.10); IMMATURE GRAN PERCENT AUTO 2 % (0-1); LYMPHOCYTES ABSOLUTE AUTO 2.15 K/mm3 (0.84-5.20); LYMPHOCYTES PERCENT AUTO 17 % (21-46); MONOCYTES ABSOLUTE AUTO 0.59 K/mm3 (0.16-1.47); MONOCYTES PERCENT AUTO 5 % (4-13); Mean Corpuscular HGB 21.9 pg (26.0-34.0); Mean Corpuscular HGB Conc 27.9 g/dL (31.5-36.5); Mean Corpuscular Volume 79 fL (80-100); Mean Platelet Volume 9.3 fL (9.1-12.4); NEUTROPHILS ABSOLUTE AUTO 9.24 K/mm3 (1.96-9.15); NEUTROPHILS PERCENT AUTO 73 % (41-73); Platelet Count 464 K/mm3 (150-400); RDW Coefficient Variation 18.3 % (11.7-14.2); RDW Standard Deviation 51.8 fL (35.1-46.3); Red Blood Cell Count 4.33 M/mm3 (4.30-5.90); White Blood Cell Count 12.66 K/mm3 (4.00-11.30)
[2020-01-20 15:23] LABS: Percent Saturation 6.7 % (20.0-50.0)
[2020-01-20 15:27] LABS: CHOL/HDL RATIO 5.6; Cholesterol 200 mg/dL (50-200); HDL Cholesterol 36 mg/dL (>39); LDL/HDL RATIO 3.1; Low Density Lipoprotein Chol 110 mg/dL (0-110); Triglycerides 269 mg/dL (30-160); Very Low Density Lipoprot Chol 53 mg/dL (6-32)
== END 2020-01-20 14:40 | disposition home or self-care (01) ==
LOC: ATC 02:54
PROVIDERS: Nurse Practitioner Family
DX: D50.9 Iron deficiency anemia, unspecified (principal); E11.9 Type 2 diabetes mellitus without complications; I10 Essential (primary) hypertension; N31.9 Neuromuscular dysfunction of bladder, unspecified; Z79.899 Other long term (current) drug therapy; Z88.1 Allergy status to other antibiotic agents; Z88.2 Allergy status to sulfonamides; Z79.4 Long term (current) use of insulin; Z51.5 Encounter for palliative care
CPT/HCPCS: 36591; 80061; 82043; 83036; 83540; 83550; 85025; J1642

== ENCOUNTER → 2020-01-29 | Outpatient (CLI) | payer MEDICARE, OTHER | END | disposition home or self-care (01) | LOC: LAB 10:00 | DX: R82.90 Unspecified abnormal findings in urine (principal) | CPT/HCPCS: 87086 ==

== ENCOUNTER → 2020-02-12 | Outpatient (CLI) | payer MEDICARE, OTHER | END | disposition home or self-care (01) | LOC: LAB SHORT 18:45 | DX: N39.0 Urinary tract infection, site not specified (principal); Z96.0 Presence of urogenital implants | CPT/HCPCS: 87077; 87086; 87186 ==

== ENCOUNTER 2020-03-11 01:59 | Day surgery (SDC) | payer MEDICARE, OTHER ==
[2020-03-12 08:09] LABS: IMMUNOGLOBULIN A, QN, SERUM 264 mg/dL (61-437); IMMUNOGLOBULIN G, QN, SERUM 824 mg/dL (603-1613); IMMUNOGLOBULIN M, QN, SERUM 27 mg/dL (20-172)
== END 2020-03-11 14:36 | disposition home or self-care (01) ==
LOC: ATC 01:59
PROVIDERS: Nurse Practitioner Family
DX: Z45.2 Encounter for adjustment and management of vascular access device (principal); D83.1 Common variable immunodeficiency with predominant immunoregulatory T-cell disorders; N31.9 Neuromuscular dysfunction of bladder, unspecified; D50.9 Iron deficiency anemia, unspecified; I10 Essential (primary) hypertension; E11.9 Type 2 diabetes mellitus without complications; E78.5 Hyperlipidemia, unspecified; Z79.4 Long term (current) use of insulin; Z79.899 Other long term (current) drug therapy; G47.30 Sleep apnea, unspecified; M19.90 Unspecified osteoarthritis, unspecified site; Z88.1 Allergy status to other antibiotic agents; Z88.2 Allergy status to sulfonamides; Z20.822 Contact with and (suspected) exposure to COVID-19; Z79.01 Long term (current) use of anticoagulants
CPT/HCPCS: 36591; 82784; J1642

== ENCOUNTER → 2020-05-24 | Outpatient (CLI) | payer MEDICARE, OTHER ==
[2020-05-24 17:07] LABS: Source, Urine Catheter
[2020-05-24 18:23] LABS: Appearance, Urine Hazy (Clear); Bilirubin, Urine Neg (Neg); Color, Urine Yellow (P-Yellow); Glucose Qualitative, Urine Neg (Neg); Ketones, Urine Neg (Neg); Leukocyte Esterase, Urine Neg (Neg); Nitrite, Urine Neg (Neg); Protein, Urine Neg (Neg)
[2020-05-24 18:27] LABS: Blood, Urine 3+ (Neg); Urobilinogen, Urine NORM (Normal)
[2020-05-24 19:14] LABS: Red Blood Cells, Urine 25-50 /hpf (0-2); White Blood Cells, Urine 25-50 /hpf (0-5)
[2020-05-24 19:15] LABS: Bacteria Few /hpf; Squamous Epithelial Cells Not Seen /hpf (Few)
== END | disposition home or self-care (01) ==
LOC: LAB SHORT 16:15 → LAB 16:15
PROVIDERS: Nurse Practitioner Family
DX: N39.0 Urinary tract infection, site not specified (principal); N31.9 Neuromuscular dysfunction of bladder, unspecified
CPT/HCPCS: 81001; 87077; 87086; 87186

== ENCOUNTER → 2020-08-26 | Outpatient (CLI) | payer MEDICARE, OTHER ==
[2020-08-26 11:56] LABS: Appearance, Urine Turbid (Clear); Bilirubin, Urine Neg (Neg); Blood, Urine 5+ (Neg); Color, Urine Yellow (P-Yellow); Glucose Qualitative, Urine Neg (Neg); Ketones, Urine Neg (Neg); Leukocyte Esterase, Urine 3+ (Neg); Nitrite, Urine Neg (Neg); Protein, Urine 3+ (Neg); Urobilinogen, Urine NORM (Normal)
[2020-08-26 12:54] LABS: Bacteria Many /hpf; Red Blood Cells, Urine 25-50 /hpf (0-2); Squamous Epithelial Cells Not Seen /hpf (Few); White Blood Cells, Urine TNTC /hpf (0-5)
[2020-08-26 12:55] LABS: Yeast/Fungi Urine Many /hpf
== END | disposition home or self-care (01) ==
LOC: LAB SHORT 09:35 → LAB 09:35
PROVIDERS: Nurse Practitioner Family
DX: Z46.6 Encounter for fitting and adjustment of urinary device (principal); N31.9 Neuromuscular dysfunction of bladder, unspecified
CPT/HCPCS: 81001; 87077; 87086; 87186

== ENCOUNTER 2020-09-15 00:56 | Day surgery (SDC) | payer MEDICARE, OTHER ==
[2020-09-15 15:56] LABS: BASOPHILS PERCENT AUTO 1 % (0-2); EOSINOPHILS PERCENT AUTO 4 % (0-6); Hematocrit 41.2 % (37.0-53.0); Hemoglobin 12.8 g/dL (13.5-17.5); IMMATURE GRAN ABSOLUTE AUTO 0.22 K/mm3 (0.00-0.10); IMMATURE GRAN PERCENT AUTO 2 % (0-1); LYMPHOCYTES ABSOLUTE AUTO 1.71 K/mm3 (0.84-5.20); LYMPHOCYTES PERCENT AUTO 14 % (21-46); MONOCYTES ABSOLUTE AUTO 0.69 K/mm3 (0.16-1.47); MONOCYTES PERCENT AUTO 6 % (4-13); Mean Corpuscular HGB 28.2 pg (26.0-34.0); Mean Corpuscular HGB Conc 31.1 g/dL (31.5-36.5); Mean Corpuscular Volume 91 fL (80-100); Mean Platelet Volume 9.6 fL (9.1-12.4); NEUTROPHILS ABSOLUTE AUTO 9.18 K/mm3 (1.96-9.15); NEUTROPHILS PERCENT AUTO 74 % (41-73); Platelet Count 404 K/mm3 (150-400); RDW Coefficient Variation 14.4 % (11.7-14.2); RDW Standard Deviation 47.9 fL (35.1-46.3); Red Blood Cell Count 4.54 M/mm3 (4.30-5.90)
[2020-09-15 16:43] LABS: Alanine Aminotransfer (ALT/SGP 26 U/L (12-78); Albumin, Blood 2.8 g/dL (3.4-5.0); Albumin/Globulin Ratio 0.7 (0.8-1.8); Alk Phos 112 U/L (50-136); Anion Gap 4 mmol/L (6-16); Aspartate Aminotrans (AST/SGOT 10 U/L (12-37); Bilirubin, Total 0.3 mg/dL (0.1-1.0); Blood Urea Nitrogen 23 mg/dL (8-24); Bun/Creatinine Ratio 30.1 (12.0-20.0); CHOL/HDL RATIO 6.1; CO2, Blood 33 mmol/L (21-32); Calcium, Blood 8.9 mg/dL (8.5-10.1); Chloride, Blood 100 mmol/L (98-108); Cholesterol 220 mg/dL (50-200); Creatinine, Blood 0.77 mg/dL (0.60-1.20); Globulin, Blood 4.3 g/dL (2.2-4.0); Glomerular Filtration Rate >60 (60-); Glucose, Blood 104 mg/dL (70-99); HDL Cholesterol 36 mg/dL (>39); LDL/HDL RATIO 3.9; Low Density Lipoprotein Chol 141 mg/dL (0-110); Potassium, Blood 4.7 mmol/L (3.5-5.5); Sodium, Blood 137 mmol/L (136-145); Total Protein, Blood 7.1 g/dL (6.4-8.2); Triglycerides 214 mg/dL (30-160); Very Low Density Lipoprot Chol 42 mg/dL (6-32)
== END 2020-09-15 15:22 | disposition home or self-care (01) ==
LOC: ATC 00:56
PROVIDERS: Nurse Practitioner Family
DX: E11.9 Type 2 diabetes mellitus without complications (principal); Z79.4 Long term (current) use of insulin; I10 Essential (primary) hypertension; I73.00 Raynaud's syndrome without gangrene; E66.2 Morbid (severe) obesity with alveolar hypoventilation; L89.204 Pressure ulcer of unspecified hip, stage 4; L89.154 Pressure ulcer of sacral region, stage 4; L89.324 Pressure ulcer of left buttock, stage 4; L89.893 Pressure ulcer of other site, stage 3; Z88.1 Allergy status to other antibiotic agents; Z88.5 Allergy status to narcotic agent; Z88.2 Allergy status to sulfonamides
CPT/HCPCS: 36591; 80053; 80061; 83036; 85025; J1642

== ENCOUNTER → 2020-10-13 | Outpatient (CLI) | payer MEDICARE, OTHER ==
[2020-10-13 11:54] LABS: Source, Urine Catheter
[2020-10-13 12:58] LABS: Appearance, Urine Hazy (Clear); Bilirubin, Urine Neg (Neg); Blood, Urine 5+ (Neg); Color, Urine Yellow (P-Yellow); Glucose Qualitative, Urine Neg (Neg); Ketones, Urine Neg (Neg); Leukocyte Esterase, Urine 3+ (Neg); Nitrite, Urine Neg (Neg); Protein, Urine 3+ (Neg); Specific Gravity, Urine 1.015 (1.003-1.022); Urobilinogen, Urine NORM (Normal)
[2020-10-13 13:25] LABS: Red Blood Cells, Urine 50-100 /hpf (0-2); White Blood Cells, Urine 25-50 /hpf (0-5)
[2020-10-13 13:26] LABS: Amorphous Light (0-Heavy); Bacteria Few /hpf; Squamous Epithelial Cells Few /hpf (Few)
== END | disposition home or self-care (01) ==
LOC: LAB 10:53 → LAB SHORT 10:53
PROVIDERS: Nurse Practitioner Family
DX: N31.9 Neuromuscular dysfunction of bladder, unspecified (principal); Z46.6 Encounter for fitting and adjustment of urinary device
CPT/HCPCS: 81001; 87077; 87086; 87186

== ENCOUNTER 2020-10-20 01:32 | Day surgery (SDC) | payer MEDICARE, OTHER ==
[2020-10-20 15:45] LABS: Hematocrit 37.7 % (37.0-53.0); Hemoglobin 11.6 g/dL (13.5-17.5); Mean Corpuscular HGB 27.4 pg (26.0-34.0); Mean Corpuscular HGB Conc 30.8 g/dL (31.5-36.5); Mean Corpuscular Volume 89 fL (80-100); Platelet Count 486 K/mm3 (150-400); RDW Coefficient Variation 14.3 % (11.7-14.2); Red Blood Cell Count 4.23 M/mm3 (4.30-5.90); White Blood Cell Count 14.31 K/mm3 (4.00-11.30)
[2020-10-20 16:02] LABS: Alanine Aminotransfer (ALT/SGP 24 U/L (12-78); Albumin, Blood 2.4 g/dL (3.4-5.0); Albumin/Globulin Ratio 0.6 (0.8-1.8); Alk Phos 90 U/L (50-136); Anion Gap 3 mmol/L (6-16); Aspartate Aminotrans (AST/SGOT 15 U/L (12-37); Bilirubin, Total 0.2 mg/dL (0.1-1.0); Blood Urea Nitrogen 20 mg/dL (8-24); Bun/Creatinine Ratio 27.5 (12.0-20.0); CO2, Blood 37 mmol/L (21-32); Calcium, Blood 8.3 mg/dL (8.5-10.1); Chloride, Blood 99 mmol/L (98-108); Creatinine, Blood 0.73 mg/dL (0.60-1.20); Globulin, Blood 4.1 g/dL (2.2-4.0); Glomerular Filtration Rate >60 (60-); Glucose, Blood 85 mg/dL (70-99); Potassium, Blood 4.4 mmol/L (3.5-5.5); Sodium, Blood 139 mmol/L (136-145); Total Protein, Blood 6.5 g/dL (6.4-8.2)
[2020-10-20 16:06] LABS: BAND PERCENT MAN 1 % (0-8); BASOPHILS PERCENT MAN 0 % (0-2); EOSINOPHILS ABSOLUTE MAN 0.57 K/mm3 (0.00-0.68); EOSINOPHILS PERCENT MAN 4 % (0-6); LYMPHOCYTES ABSOLUTE MAN 1.86 K/mm3 (0.84-5.20); LYMPHOCYTES PERCENT MAN 13 % (21-46); METAMYELOCYTE ABSOLUTE MAN 0.71 K/mm3 (0.00-0.00); METAMYELOCYTE PERCENT MAN 5 % (0-0); MONOCYTES ABSOLUTE MAN 0.85 K/mm3 (0.16-1.47); MONOCYTES PERCENT MAN 6 % (4-13); SEG NEUTROPHILS PERCENT MAN 71 % (41-73); TOTAL CELLS COUNTED 100
== END 2020-10-20 15:33 | disposition home or self-care (01) ==
LOC: ATC 01:32
PROVIDERS: Nurse Practitioner Family
DX: T83.511A Infection and inflammatory reaction due to indwelling urethral catheter, initial encounter (principal); N39.0 Urinary tract infection, site not specified; E11.9 Type 2 diabetes mellitus without complications; I10 Essential (primary) hypertension; D50.0 Iron deficiency anemia secondary to blood loss (chronic); N31.9 Neuromuscular dysfunction of bladder, unspecified; G82.21 Paraplegia, complete; L89.156 Pressure-induced deep tissue damage of sacral region; Y73.8 Miscellaneous gastroenterology and urology devices associated with adverse incidents, not elsewhere classified; Z79.4 Long term (current) use of insulin
CPT/HCPCS: 80053; 85025; 96365; J0696; J1642

== ENCOUNTER 2020-10-21 02:06 | Day surgery (SDC) | payer MEDICARE, OTHER | END 2020-10-21 16:00 | disposition home or self-care (01) | LOC: ATC 02:06 | DX: T83.511A Infection and inflammatory reaction due to indwelling urethral catheter, initial encounter (principal); N39.0 Urinary tract infection, site not specified; E11.9 Type 2 diabetes mellitus without complications; G82.21 Paraplegia, complete; E66.9 Obesity, unspecified; Z79.4 Long term (current) use of insulin; Z88.1 Allergy status to other antibiotic agents; Z88.2 Allergy status to sulfonamides; Z88.6 Allergy status to analgesic agent; Z88.5 Allergy status to narcotic agent; Z88.0 Allergy status to penicillin; Y73.8 Miscellaneous gastroenterology and urology devices associated with adverse incidents, not elsewhere classified | CPT/HCPCS: 96365; J0696; J1642 ==

== ENCOUNTER 2020-10-22 12:19 | Day surgery (SDC) | payer MEDICARE, OTHER | END 2020-10-22 13:54 | disposition home or self-care (01) | LOC: ATC 12:19 | DX: T83.511A Infection and inflammatory reaction due to indwelling urethral catheter, initial encounter (principal); T85.73 Infection and inflammatory reaction due to nervous system devices, implants and graft; N39.0 Urinary tract infection, site not specified; Y73.8 Miscellaneous gastroenterology and urology devices associated with adverse incidents, not elsewhere classified; E11.9 Type 2 diabetes mellitus without complications; Z79.4 Long term (current) use of insulin; Z88.1 Allergy status to other antibiotic agents; Z88.2 Allergy status to sulfonamides; I70.90 Unspecified atherosclerosis; M16.11 Unilateral primary osteoarthritis, right hip | CPT/HCPCS: 74019; 96365; J0696; J1642 ==

== ENCOUNTER 2020-10-23 03:32 | Day surgery (SDC) | payer MEDICARE, OTHER | END 2020-10-23 13:50 | disposition home or self-care (01) | LOC: ATC 03:32 | DX: T83.511A Infection and inflammatory reaction due to indwelling urethral catheter, initial encounter (principal); N39.0 Urinary tract infection, site not specified; E11.9 Type 2 diabetes mellitus without complications; D50.0 Iron deficiency anemia secondary to blood loss (chronic); N31.9 Neuromuscular dysfunction of bladder, unspecified; G82.21 Paraplegia, complete; Z79.4 Long term (current) use of insulin; Z97.8 Presence of other specified devices | CPT/HCPCS: 96365; J0696; J1642 ==

== ENCOUNTER 2020-10-24 02:40 | Day surgery (SDC) | payer MEDICARE, OTHER | END 2020-10-24 14:28 | disposition home or self-care (01) | LOC: ATC 02:40 | DX: T83.511A Infection and inflammatory reaction due to indwelling urethral catheter, initial encounter (principal); N39.0 Urinary tract infection, site not specified; E11.9 Type 2 diabetes mellitus without complications; N31.9 Neuromuscular dysfunction of bladder, unspecified; G82.21 Paraplegia, complete; I10 Essential (primary) hypertension; Y73.2 Prosthetic and other implants, materials and accessory gastroenterology and urology devices associated with adverse incidents; Z79.4 Long term (current) use of insulin; Z88.2 Allergy status to sulfonamides; Z88.1 Allergy status to other antibiotic agents | CPT/HCPCS: 96365; J0696; J1642 ==

== ENCOUNTER 2020-10-26 01:09 | Day surgery (SDC) | payer MEDICARE, OTHER | END 2020-10-26 23:06 | disposition home or self-care (01) | LOC: WOUND 01:09 | DX: S31.109A Unspecified open wound of abdominal wall, unspecified quadrant without penetration into peritoneal cavity, initial encounter (principal); X58.XXXA Exposure to other specified factors, initial encounter; E11.621 Type 2 diabetes mellitus with foot ulcer; G82.20 Paraplegia, unspecified; Z45.1 Encounter for adjustment and management of infusion pump; Z89.622 Acquired absence of left hip joint; J45.909 Unspecified asthma, uncomplicated; G47.33 Obstructive sleep apnea (adult) (pediatric) | CPT/HCPCS: G0463 ==

== ENCOUNTER 2020-10-28 00:26 | Day surgery (SDC) | payer MEDICARE, OTHER | END 2020-10-28 23:33 | disposition home or self-care (01) | LOC: WOUND 00:26 | DX: S31.109A Unspecified open wound of abdominal wall, unspecified quadrant without penetration into peritoneal cavity, initial encounter (principal); X58.XXXA Exposure to other specified factors, initial encounter; G82.20 Paraplegia, unspecified ==

== ENCOUNTER 2020-11-01 09:19 | Day surgery (SDC) | payer MEDICARE, OTHER | END 2020-11-01 23:02 | disposition home or self-care (01) | LOC: WOUND 09:19 | DX: E11.621 Type 2 diabetes mellitus with foot ulcer (principal); L97.509 Non-pressure chronic ulcer of other part of unspecified foot with unspecified severity; S31.109A Unspecified open wound of abdominal wall, unspecified quadrant without penetration into peritoneal cavity, initial encounter; G82.20 Paraplegia, unspecified; Z89.622 Acquired absence of left hip joint; Z45.1 Encounter for adjustment and management of infusion pump ==

== ENCOUNTER 2020-11-03 01:51 | Day surgery (SDC) | payer MEDICARE, OTHER | END 2020-11-03 23:14 | disposition home or self-care (01) | LOC: WOUND 01:51 | DX: E11.621 Type 2 diabetes mellitus with foot ulcer (principal); L97.509 Non-pressure chronic ulcer of other part of unspecified foot with unspecified severity; G82.20 Paraplegia, unspecified; S31.109A Unspecified open wound of abdominal wall, unspecified quadrant without penetration into peritoneal cavity, initial encounter; Z89.622 Acquired absence of left hip joint; Z45.1 Encounter for adjustment and management of infusion pump ==

== ENCOUNTER → 2020-11-04 | Outpatient (CLI) | payer MEDICARE, OTHER ==
[2020-11-04 13:20] LABS: Appearance, Urine Clear (Clear); Bilirubin, Urine Neg (Neg); Blood, Urine 5+ (Neg); Color, Urine Yellow (P-Yellow); Glucose Qualitative, Urine Neg (Neg); Ketones, Urine Neg (Neg); Leukocyte Esterase, Urine 3+ (Neg); Nitrite, Urine Neg (Neg); Protein, Urine 2+ (Neg); Urobilinogen, Urine NORM (Normal)
[2020-11-04 13:39] LABS: Red Blood Cells, Urine 25-50 /hpf (0-2); Squamous Epithelial Cells Few /hpf (Few)
[2020-11-04 13:40] LABS: Bacteria Few /hpf
== END ==
LOC: LAB 12:27 → LAB SHORT 12:27
PROVIDERS: Family Medicine
DX: N31.9 Neuromuscular dysfunction of bladder, unspecified (principal)
CPT/HCPCS: 81001; 87077; 87086; 87186

== ENCOUNTER 2020-11-10 03:23 | Day surgery (SDC) | payer MEDICARE, OTHER | END 2020-11-10 23:16 | disposition home or self-care (01) | LOC: WOUND 03:23 | DX: S31.104A Unspecified open wound of abdominal wall, left lower quadrant without penetration into peritoneal cavity, initial encounter (principal); X58.XXXA Exposure to other specified factors, initial encounter; E11.621 Type 2 diabetes mellitus with foot ulcer; G82.20 Paraplegia, unspecified; Z45.1 Encounter for adjustment and management of infusion pump; Z89.622 Acquired absence of left hip joint ==

== ENCOUNTER → 2020-12-12 | Outpatient (CLI) | payer MEDICARE, OTHER ==
[2020-12-12 12:58] LABS: Source, Urine Catheter
[2020-12-12 15:13] LABS: Appearance, Urine Hazy (Clear); Bilirubin, Urine Neg (Neg); Blood, Urine 4+ (Neg); Color, Urine Yellow (P-Yellow); Glucose Qualitative, Urine Neg (Neg); Ketones, Urine Neg (Neg); Leukocyte Esterase, Urine 3+ (Neg); Nitrite, Urine Neg (Neg); Protein, Urine 3+ (Neg); Urobilinogen, Urine NORM (Normal); pH, Urine 6.5 (5.0-8.0)
[2020-12-12 15:26] LABS: Bacteria Many /hpf; Squamous Epithelial Cells Few /hpf (Few); White Blood Cells, Urine TNTC /hpf (0-5)
== END ==
LOC: LAB 10:55 → LAB SHORT 10:55
PROVIDERS: Nurse Practitioner Family
DX: Z46.6 Encounter for fitting and adjustment of urinary device (principal); N39.0 Urinary tract infection, site not specified; N31.9 Neuromuscular dysfunction of bladder, unspecified
CPT/HCPCS: 81001; 87077; 87086; 87186

== ENCOUNTER 2020-12-23 05:50 | Day surgery (SDC) | payer MEDICARE, OTHER ==
[~2020-12-23 05:50] MED LIST changes: -AMLO5 PO; -HUMULIN N100 UNIT/5 SC; -METO50ER PO; -Micro-K10 MEQ PO; -NOVOLOG FL100 UNIT/3 SC; -OMEPRAZOLE20 MG PO
== END 2020-12-23 23:52 | disposition home or self-care (01) ==
LOC: WOUND 05:50
DX: S31.104A Unspecified open wound of abdominal wall, left lower quadrant without penetration into peritoneal cavity, initial encounter (principal); X58.XXXA Exposure to other specified factors, initial encounter; E11.621 Type 2 diabetes mellitus with foot ulcer; G82.20 Paraplegia, unspecified; Z45.1 Encounter for adjustment and management of infusion pump; Z89.622 Acquired absence of left hip joint
CPT/HCPCS: G0463

== ENCOUNTER → 2020-12-26 | Outpatient (CLI) | payer MEDICARE, OTHER ==
[~2020-12-26] MED LIST changes: +AMLO5 PO; +HUMULIN N100 UNIT/5 SC; +METO50ER PO; +Micro-K10 MEQ PO; +NOVOLOG FL100 UNIT/3 SC; +OMEPRAZOLE20 MG PO
[2020-12-26 14:03] LABS: Source, Urine Catheter
[2020-12-26 15:14] LABS: Appearance, Urine Hazy (Clear); Bilirubin, Urine Neg (Neg); Blood, Urine 5+ (Neg); Color, Urine Red (P-Yellow); Glucose Qualitative, Urine Neg (Neg); Ketones, Urine Neg (Neg); Leukocyte Esterase, Urine 3+ (Neg); Nitrite, Urine Neg (Neg); Protein, Urine 3+ (Neg); Specific Gravity, Urine 1.015 (1.003-1.022); Urobilinogen, Urine NORM (Normal)
[2020-12-26 16:37] LABS: Red Blood Cells, Urine TNTC /hpf (0-2)
[2020-12-26 16:39] LABS: Bacteria Few /hpf; Squamous Epithelial Cells Few /hpf (Few)
== END | disposition home or self-care (01) ==
LOC: LAB 13:54 → LAB SHORT 13:54
PROVIDERS: Family Medicine
DX: N39.0 Urinary tract infection, site not specified (principal)
CPT/HCPCS: 81001; 87077; 87086; 87186

== ENCOUNTER 2021-01-08 04:59 | Emergency (ER) | payer MEDICARE, OTHER ==
[~2021-01-08] VITALS: Ht 188 cm; Wt 144.2 kg
[~2021-01-08 04:59] MED LIST changes: -AMLO5 PO; -HUMULIN N100 UNIT/5 SC; -METO50ER PO; -Micro-K10 MEQ PO; -NOVOLOG FL100 UNIT/3 SC; -OMEPRAZOLE20 MG PO
[2021-01-08] MEDS ORDERED: BACL10 PO (05:38)
[2021-01-08 06:24] LABS: Alanine Aminotransfer (ALT/SGP 21 U/L (12-78); Albumin, Blood 2.7 g/dL (3.4-5.0); Albumin/Globulin Ratio 0.6 (0.8-1.8); Alk Phos 90 U/L (50-136); Anion Gap 6 mmol/L (6-16); Aspartate Aminotrans (AST/SGOT 20 U/L (12-37); Bilirubin, Total 0.3 mg/dL (0.1-1.0); Blood Urea Nitrogen 22 mg/dL (8-24); Bun/Creatinine Ratio 36.2 (12.0-20.0); CO2, Blood 33 mmol/L (21-32); Calcium, Blood 9.2 mg/dL (8.5-10.1); Chloride, Blood 97 mmol/L (98-108); Creatinine, Blood 0.61 mg/dL (0.60-1.20); Globulin, Blood 4.3 g/dL (2.2-4.0); Glomerular Filtration Rate >60 (60-); Glucose, Blood 244 mg/dL (70-99); Magnesium, Blood 2.1 mg/dL (1.6-2.4); Potassium, Blood 4.5 mmol/L (3.5-5.5); Sodium, Blood 136 mmol/L (136-145)
[2021-01-08 06:31] LABS: BASOPHILS ABSOLUTE AUTO 0.08 K/mm3 (0.00-0.23); BASOPHILS PERCENT AUTO 1 % (0-2); EOSINOPHILS ABSOLUTE AUTO 0.19 K/mm3 (0.00-0.68); EOSINOPHILS PERCENT AUTO 1 % (0-6); Hematocrit 43.2 % (37.0-53.0); Hemoglobin 13.5 g/dL (13.5-17.5); IMMATURE GRAN ABSOLUTE AUTO 0.25 K/mm3 (0.00-0.10); IMMATURE GRAN PERCENT AUTO 2 % (0-1); LYMPHOCYTES ABSOLUTE AUTO 0.96 K/mm3 (0.84-5.20); LYMPHOCYTES PERCENT AUTO 6 % (21-46); MONOCYTES ABSOLUTE AUTO 0.68 K/mm3 (0.16-1.47); MONOCYTES PERCENT AUTO 4 % (4-13); Mean Corpuscular HGB 27.2 pg (26.0-34.0); Mean Corpuscular HGB Conc 31.3 g/dL (31.5-36.5); Mean Corpuscular Volume 87 fL (80-100); Mean Platelet Volume 9.2 fL (9.1-12.4); NEUTROPHILS ABSOLUTE AUTO 13.98 K/mm3 (1.96-9.15); NEUTROPHILS PERCENT AUTO 87 % (41-73); Platelet Count 398 K/mm3 (150-400); RDW Coefficient Variation 14.6 % (11.7-14.2); RDW Standard Deviation 47.1 fL (35.1-46.3); Red Blood Cell Count 4.96 M/mm3 (4.30-5.90); White Blood Cell Count 16.14 K/mm3 (4.00-11.30)
[2021-01-08 06:44] LABS: Troponin I <0.015 ng/mL (0.000-0.040)
[2021-01-08 08:17] LABS: Source, Urine Catheter
[2021-01-08 08:23] LABS: Appearance, Urine Hazy (Clear); Bilirubin, Urine Neg (Neg); Blood, Urine 4+ (Neg); Color, Urine Yellow (P-Yellow); Glucose Qualitative, Urine Neg (Neg); Ketones, Urine 1+ (Neg); Leukocyte Esterase, Urine 3+ (Neg); Nitrite, Urine Neg (Neg); Protein, Urine 3+ (Neg); Urobilinogen, Urine NORM (Normal)
[2021-01-08 08:43] LABS: Bacteria Few /hpf; Red Blood Cells, Urine 0-2 /hpf (0-2); Squamous Epithelial Cells Few /hpf (Few); White Blood Cells, Urine 25-50 /hpf (0-5)
[2021-01-08] MEDS ORDERED: CEFD300 PO (09:32)
[2021-01-08] MEDS ORDERED: ALMACONE SUSPE355 ML PO (09:32)
[2021-01-09] MEDS ORDERED: MORP30ER PO (14:34)
[2021-01-09] MEDS ORDERED: OXYC30 PO (14:35)
[2021-01-09] MEDS ORDERED: TIZA4 PO (14:36)
[2021-01-09] MEDS ORDERED: ROSU10TA PO (14:36)
[2021-01-09] MEDS ORDERED: NOVOLIN N100 UNIT/2 SC (14:38)
[2021-01-09] MEDS ORDERED: Monodox100 MG PO (14:39)
[2021-01-09] MEDS ORDERED: OMEPRAZOLE20 MG PO (14:39)
[2021-01-09] MEDS ORDERED: NOVOLOG FL100 UNIT/3 SC (14:40)
[2021-01-09] MEDS ORDERED: GABA600 PO (14:41)
[2021-01-09] MEDS ORDERED: LOSA50 PO (14:42)
[2021-01-09] MEDS ORDERED: FURO40 PO (14:42)
[2021-01-09] MEDS ORDERED: AMLO10 PO (14:43)
[2021-01-09] MEDS ORDERED: METO100ER PO (14:43)
[2021-01-09] MEDS ORDERED: Micro-K10 MEQ PO (14:44)
[2021-01-09] MEDS ORDERED: Oxybutynin Chlo10 MG PO (14:45)
== END 2021-01-08 11:00 | disposition home or self-care (01) ==
LOC: ER 04:59
PROVIDERS: Student in an Organized Health Care Education/Training Program
DX: N30.90 Cystitis, unspecified without hematuria (principal); N39.0 Urinary tract infection, site not specified; Z88.1 Allergy status to other antibiotic agents; Z88.2 Allergy status to sulfonamides; Z88.8 Allergy status to other drugs, medicaments and biological substances; Z79.899 Other long term (current) drug therapy; Z79.891 Long term (current) use of opiate analgesic; Z79.4 Long term (current) use of insulin; E11.9 Type 2 diabetes mellitus without complications; G47.33 Obstructive sleep apnea (adult) (pediatric); J45.909 Unspecified asthma, uncomplicated; D64.9 Anemia, unspecified
CPT/HCPCS: 36415; 71045; 74177; 80053; 81001; 83605; 83690; 83735; 84145; 84484; 85025; 87086; 93005; 93010; 96365; 96375; 96376; 99284-25; A9270; J0696; J1642; J2270; J2405; J7030; Q9967

== ENCOUNTER 2021-01-09 09:21 | Emergency (ER) | payer MEDICARE, OTHER ==
[~2021-01-09] VITALS: Ht 157.5 cm; Wt 144.2 kg
[~2021-01-09 09:21] MED LIST changes: +ALMACONE SUSPE355 ML PO; +BACL10 PO
[2021-01-09 11:39] LABS: Alanine Aminotransfer (ALT/SGP 18 U/L (12-78); Albumin, Blood 2.6 g/dL (3.4-5.0); Albumin/Globulin Ratio 0.6 (0.8-1.8); Alk Phos 88 U/L (50-136); Anion Gap 4 mmol/L (6-16); Aspartate Aminotrans (AST/SGOT 9 U/L (12-37); Bilirubin, Total 0.4 mg/dL (0.1-1.0); Blood Urea Nitrogen 31 mg/dL (8-24); Bun/Creatinine Ratio 39.8 (12.0-20.0); CO2, Blood 31 mmol/L (21-32); CPK Creatine Kinase 57 U/L (39-308); Calcium, Blood 8.7 mg/dL (8.5-10.1); Chloride, Blood 97 mmol/L (98-108); Creatine Kinase MB 3.2 ng/mL (0.0-3.6); Creatine Kinase MB Index 5.6 (0.0-4.0); Creatinine, Blood 0.78 mg/dL (0.60-1.20); Globulin, Blood 4.4 g/dL (2.2-4.0); Glomerular Filtration Rate >60 (60-); Glucose, Blood 250 mg/dL (70-99); Sodium, Blood 132 mmol/L (136-145)
[2021-01-09 13:51] LABS: BASOPHILS ABSOLUTE AUTO 0.05 K/mm3 (0.00-0.23); BASOPHILS PERCENT AUTO 0 % (0-2); EOSINOPHILS ABSOLUTE AUTO 0.02 K/mm3 (0.00-0.68); EOSINOPHILS PERCENT AUTO 0 % (0-6); Hematocrit 42.2 % (37.0-53.0); IMMATURE GRAN ABSOLUTE AUTO 0.17 K/mm3 (0.00-0.10); IMMATURE GRAN PERCENT AUTO 1 % (0-1); LYMPHOCYTES ABSOLUTE AUTO 0.77 K/mm3 (0.84-5.20); LYMPHOCYTES PERCENT AUTO 5 % (21-46); MONOCYTES ABSOLUTE AUTO 0.41 K/mm3 (0.16-1.47); MONOCYTES PERCENT AUTO 3 % (4-13); Mean Corpuscular HGB 27.3 pg (26.0-34.0); Mean Corpuscular HGB Conc 30.8 g/dL (31.5-36.5); Mean Corpuscular Volume 89 fL (80-100); NEUTROPHILS PERCENT AUTO 91 % (41-73); Platelet Count 411 K/mm3 (150-400); RDW Coefficient Variation 14.7 % (11.7-14.2); RDW Standard Deviation 47.3 fL (35.1-46.3); Red Blood Cell Count 4.77 M/mm3 (4.30-5.90); White Blood Cell Count 14.92 K/mm3 (4.00-11.30)
[2021-01-09] MEDS ORDERED: MORP30ER PO (14:34)
[2021-01-09] MEDS ORDERED: OXYC30 PO (14:35)
[2021-01-09] MEDS ORDERED: ROSU10TA PO (14:36)
[2021-01-09] MEDS ORDERED: TIZA4 PO (14:36)
[2021-01-09] MEDS ORDERED: NOVOLIN N100 UNIT/2 SC (14:38)
[2021-01-09] MEDS ORDERED: Monodox100 MG PO (14:39)
[2021-01-09] MEDS ORDERED: OMEPRAZOLE20 MG PO (14:39)
[2021-01-09] MEDS ORDERED: NOVOLOG FL100 UNIT/3 SC (14:40)
[2021-01-09] MEDS ORDERED: GABA600 PO (14:41)
[2021-01-09] MEDS ORDERED: FURO40 PO (14:42)
[2021-01-09] MEDS ORDERED: LOSA50 PO (14:42)
[2021-01-09] MEDS ORDERED: METO100ER PO (14:43)
[2021-01-09] MEDS ORDERED: AMLO10 PO (14:43)
[2021-01-09] MEDS ORDERED: Micro-K10 MEQ PO (14:44)
[2021-01-09] MEDS ORDERED: Oxybutynin Chlo10 MG PO (14:45)
== END 2021-01-09 15:12 | disposition home or self-care (01) ==
LOC: ER 09:21
PROVIDERS: Emergency Medicine
DX: K20.90 Esophagitis, unspecified without bleeding (principal); G82.20 Paraplegia, unspecified; Z88.1 Allergy status to other antibiotic agents; Z88.2 Allergy status to sulfonamides; Z79.899 Other long term (current) drug therapy; Z79.891 Long term (current) use of opiate analgesic; Z79.4 Long term (current) use of insulin; E11.9 Type 2 diabetes mellitus without complications; G47.33 Obstructive sleep apnea (adult) (pediatric); J45.909 Unspecified asthma, uncomplicated; D64.9 Anemia, unspecified
CPT/HCPCS: 36415; 74177; 80053; 82550; 82553; 85025; 96365; 96375; 99285-25; J0696; J1170; J1642; J2405; J7030; Q9967

== ENCOUNTER → 2021-01-18 | Outpatient (CLI) | payer MEDICARE, OTHER ==
[~2021-01-18] MED LIST changes: +AMLO10 PO; +METO100ER PO; +Micro-K10 MEQ PO; +Monodox100 MG PO; +NOVOLIN N100 UNIT/2 SC; +NOVOLOG FL100 UNIT/3 SC; +OMEPRAZOLE20 MG PO; +OXYC30 PO; +Oxybutynin Chlo10 MG PO; +ROSU10TA PO
[2021-01-18 19:19] LABS: Adenovirus F 40/41 Not Detected (NOT DETECT); Astrovirus Not Detected (NOT DETECT); Campylobacter Sp Not Detected (NOT DETECT); Cryptosporidium Not Detected (NOT DETECT); Cyclospora Cayetanensis Not Detected (NOT DETECT); E. Coli O157 Not Detected (NOT DETECT); Entamoeba Histolytica Not Detected (NOT DETECT); Enteroaggregative E. coli-EAEC Not Detected (NOT DETECT); Enteropathogenic E. coli-EPEC Not Detected (NOT DETECT); Enterotoxigenic E. coli-ETEC Not Detected (NOT DETECT); Giardia Lamblia Not Detected (NOT DETECT); Norovirus GI/GII Not Detected (NOT DETECT); Plesiomonas Shigelloides Not Detected (NOT DETECT); Rotavirus A Not Detected (NOT DETECT); Salmonella Sp Not Detected (NOT DETECT); Sapovirus Not Detected (NOT DETECT); Shiga Toxin-prod E. coli-STEC Not Detected (NOT DETECT); Shigella/Enteroin E. coli-EIEC Not Detected (NOT DETECT); Vibrio Cholerae Not Detected (NOT DETECT); Vibrio Sp Not Detected (NOT DETECT); Yersinia Enterocolitica Not Detected (NOT DETECT)
== END | disposition home or self-care (01) ==
LOC: LAB 15:34 → LAB SHORT 15:34
PROVIDERS: Nurse Practitioner Family
DX: K52.1 Toxic gastroenteritis and colitis (principal); R10.9 Unspecified abdominal pain; R19.7 Diarrhea, unspecified
CPT/HCPCS: 0097U

== ENCOUNTER → 2021-01-23 | Outpatient (CLI) | payer MEDICARE, OTHER ==
[2021-01-23 13:01] LABS: Source, Urine Catheter
[2021-01-23 14:08] LABS: Appearance, Urine Cloudy (Clear); Bilirubin, Urine Neg (Neg); Blood, Urine 5+ (Neg); Glucose Qualitative, Urine Neg (Neg); Ketones, Urine Neg (Neg); Leukocyte Esterase, Urine 3+ (Neg); Nitrite, Urine Neg (Neg); Protein, Urine 1+ (Neg); Urobilinogen, Urine NORM (Normal); pH, Urine 6.5 (5.0-8.0)
[2021-01-23 15:19] LABS: Color, Urine Pale Yellow (P-Yellow)
[2021-01-23 15:40] LABS: White Blood Cells, Urine 25-50 /hpf (0-5)
[2021-01-23 15:41] LABS: Bacteria Mod /hpf; Red Blood Cells, Urine 25-50 /hpf (0-2); Squamous Epithelial Cells Few /hpf (Few)
[2021-01-23 15:42] LABS: Yeast/Fungi Urine Many /hpf
== END | disposition home or self-care (01) ==
LOC: LAB 11:30 → LAB SHORT 11:30
PROVIDERS: Urology
DX: N39.0 Urinary tract infection, site not specified (principal); N31.9 Neuromuscular dysfunction of bladder, unspecified; R31.9 Hematuria, unspecified
CPT/HCPCS: 81001; 87086

== ENCOUNTER 2021-02-05 19:14 | Emergency (ER) | payer MEDICARE, OTHER ==
[~2021-02-05] VITALS: Ht 188 cm; Wt 136.1 kg
== END 2021-02-05 22:38 | disposition home or self-care (01) ==
LOC: ER 19:14
DX: S91.311A Laceration without foreign body, right foot, initial encounter (principal); S91.114A Laceration without foreign body of right lesser toe(s) without damage to nail, initial encounter; J45.909 Unspecified asthma, uncomplicated; D64.9 Anemia, unspecified; E11.9 Type 2 diabetes mellitus without complications; X58.XXXA Exposure to other specified factors, initial encounter
CPT/HCPCS: 12004; 99282-25

== ENCOUNTER → 2021-03-07 | Outpatient (CLI) | payer MEDICARE, OTHER ==
[2021-03-07 15:55] LABS: Source, Urine Straight Cath
[2021-03-07 16:50] LABS: Appearance, Urine Cloudy (Clear); Bilirubin, Urine Neg (Neg); Blood, Urine 4+ (Neg); Glucose Qualitative, Urine Neg (Neg); Ketones, Urine Neg (Neg); Leukocyte Esterase, Urine 3+ (Neg); Nitrite, Urine Neg (Neg); Protein, Urine 2+ (Neg); Specific Gravity, Urine 1.015 (1.003-1.022); Urobilinogen, Urine NORM (Normal)
[2021-03-07 17:21] LABS: Color, Urine Pale Yellow (P-Yellow)
[2021-03-07 17:22] LABS: White Blood Cells, Urine TNTC /hpf (0-5)
[2021-03-07 17:23] LABS: Bacteria Many /hpf; Squamous Epithelial Cells Few /hpf (Few)
[2021-03-07 17:24] LABS: Yeast/Fungi Urine Many /hpf
== END | disposition home or self-care (01) ==
LOC: LAB SHORT 14:00
PROVIDERS: Nurse Practitioner Family
DX: N39.0 Urinary tract infection, site not specified (principal)
CPT/HCPCS: 81001

== ENCOUNTER 2021-04-26 01:15 | Day surgery (SDC) | payer MEDICARE, OTHER ==
[2021-05-16] MEDS ORDERED: DICY20 PO ×2 (10:27)
[2021-05-16] MEDS ORDERED: FLAGYL500 M1 PO ×2 (10:27)
[2021-05-16] MEDS ORDERED: SACC250C PO ×2 (10:27)
== END 2021-04-26 15:01 | disposition home or self-care (01) ==
LOC: ATC 01:15
DX: Z45.2 Encounter for adjustment and management of vascular access device (principal); D50.0 Iron deficiency anemia secondary to blood loss (chronic); N39.0 Urinary tract infection, site not specified; E11.9 Type 2 diabetes mellitus without complications; N31.9 Neuromuscular dysfunction of bladder, unspecified; J30.9 Allergic rhinitis, unspecified; G82.21 Paraplegia, complete; Z79.4 Long term (current) use of insulin; Z97.8 Presence of other specified devices; Z88.1 Allergy status to other antibiotic agents
CPT/HCPCS: 96523; J1642

== ENCOUNTER 2021-05-12 16:25 | Emergency (ER) | payer MEDICARE, OTHER ==
[~2021-05-12] VITALS: Ht 190.5 cm; Wt 136.1 kg
[2021-05-12 17:43] LABS: Source, Urine Clean Catch
[2021-05-12 17:50] LABS: Bilirubin, Urine Neg (Neg); Blood, Urine 4+ (Neg); Glucose Qualitative, Urine Neg (Neg); Ketones, Urine Neg (Neg); Leukocyte Esterase, Urine 3+ (Neg); Nitrite, Urine Neg (Neg); Protein, Urine 3+ (Neg); Urobilinogen, Urine NORM (Normal)
[2021-05-12 18:03] LABS: Appearance, Urine Hazy (Clear); Color, Urine Pale Yellow (P-Yellow)
[2021-05-12 18:05] LABS: Bacteria Many /hpf; Red Blood Cells, Urine 25-50 /hpf (0-2); Squamous Epithelial Cells Rare /hpf (Few)
[2021-05-12 18:06] LABS: Amorphous Light (0-Heavy); Mucus Light (0-Heavy)
[2021-05-12] MEDS ORDERED: NITR100CA PO (20:19)
[2021-05-16] MEDS ORDERED: FLAGYL500 M1 PO ×2 (10:27)
[2021-05-16] MEDS ORDERED: DICY20 PO ×2 (10:27)
[2021-05-16] MEDS ORDERED: SACC250C PO ×2 (10:27)
== END 2021-05-12 18:45 | disposition home or self-care (01) ==
LOC: ER 16:25
PROVIDERS: Physician Assistant
DX: N30.90 Cystitis, unspecified without hematuria (principal); J45.909 Unspecified asthma, uncomplicated; E11.9 Type 2 diabetes mellitus without complications; Z88.1 Allergy status to other antibiotic agents; Z88.2 Allergy status to sulfonamides; Z88.8 Allergy status to other drugs, medicaments and biological substances; Z79.4 Long term (current) use of insulin; Z79.899 Other long term (current) drug therapy
CPT/HCPCS: 81001; 87077; 87086; 87186; 96372; 99283-25; A9270; J0696

== ENCOUNTER → 2021-05-18 | Outpatient (CLI) | payer MEDICARE, OTHER ==
[~2021-05-18] MED LIST changes: +CEFTRIAXONE2 G1 IV; +DICY20 PO; +FLAGYL500 M1 PO; +FLUC100 PO; +NITR100CA PO; +SACC250C PO
[2021-05-18 18:09] LABS: Source, Urine Straight Cath
[2021-05-18 19:09] LABS: Appearance, Urine Hazy (Clear); Bilirubin, Urine Neg (Neg); Blood, Urine 5+ (Neg); Color, Urine Yellow (P-Yellow); Glucose Qualitative, Urine Neg (Neg); Ketones, Urine Neg (Neg); Leukocyte Esterase, Urine 3+ (Neg); Nitrite, Urine Neg (Neg); Protein, Urine 3+ (Neg); Urobilinogen, Urine NORM (Normal); pH, Urine 6.5 (5.0-8.0)
[2021-05-18 19:46] LABS: Red Blood Cells, Urine TNTC /hpf (0-2); Squamous Epithelial Cells Few /hpf (Few); White Blood Cells, Urine TNTC /hpf (0-5)
[2021-05-18 19:47] LABS: Bacteria Many /hpf; Renal Epithelial Rare /hpf (0-Rare); Transitional Epithelial Cells Few /hpf (0-Rare); WBC Cast 0-2 /lpf (0)
== END | disposition home or self-care (01) ==
LOC: LAB SHORT 12:50
PROVIDERS: Nurse Practitioner Family
DX: N39.0 Urinary tract infection, site not specified (principal)
CPT/HCPCS: 81001; 87086

== ENCOUNTER 2021-05-19 12:16 | Emergency (ER) | payer MEDICARE, OTHER ==
[~2021-05-19] VITALS: Ht 188 cm; Wt 136.1 kg
[~2021-05-19 12:16] MED LIST changes: -CEFTRIAXONE2 G1 IV; -FLUC100 PO
[2021-05-19] MEDS ORDERED: FLUC100 PO ×3 (14:48→16:31)
[2021-05-19] MEDS ORDERED: ONDA4ODT MM ×3 (14:49→16:31)
[2021-05-20] MEDS ORDERED: CEFTRIAXONE2 G1 IV (10:33)
== END 2021-05-19 16:41 | disposition home or self-care (01) ==
LOC: ER 12:16
DX: B37.49 Other urogenital candidiasis (principal); B96.89 Other specified bacterial agents as the cause of diseases classified elsewhere; E11.9 Type 2 diabetes mellitus without complications; Z79.899 Other long term (current) drug therapy
CPT/HCPCS: 96374; 99283-25; A9270; J0696; J1642

== ENCOUNTER 2021-05-20 01:33 | Day surgery (SDC) | payer MEDICARE, OTHER ==
[~2021-05-20 01:33] MED LIST changes: +FLUC100 PO; +Klor-Con-Ef 2525 MEQ PO; -Micro-K10 MEQ PO
[2021-05-20] MEDS ORDERED: CEFTRIAXONE2 G1 IV (10:33)
[2021-09-12] MEDS ORDERED: [UNRECOGNIZED DRUG - OTHER] TOP (01:48)
[2021-09-15] MEDS ORDERED: FERROUS GLUCON324 M2 PO (10:57)
[2021-09-15] MEDS ORDERED: TRIM100 PO (10:59)
[2021-09-15] MEDS ORDERED: CEPH500 PO (10:59)
[2021-09-15] MEDS ORDERED: SENN187 PO (10:59)
== END 2021-05-20 09:23 | disposition home or self-care (01) ==
LOC: ATC 01:33
DX: B37.49 Other urogenital candidiasis (principal); E11.9 Type 2 diabetes mellitus without complications; G47.33 Obstructive sleep apnea (adult) (pediatric); J45.909 Unspecified asthma, uncomplicated; G82.20 Paraplegia, unspecified; S24.103S Unspecified injury at T7-T10 level of thoracic spinal cord, sequela; Z88.1 Allergy status to other antibiotic agents; Z88.2 Allergy status to sulfonamides
CPT/HCPCS: 96374; J0696; J1642

== ENCOUNTER 2021-05-21 13:27 | Day surgery (SDC) | payer MEDICARE, OTHER ==
[~2021-05-21 13:27] MED LIST changes: +CEFTRIAXONE2 G1 IV; -Klor-Con-Ef 2525 MEQ PO; +Micro-K10 MEQ PO
== END 2021-05-21 13:47 | disposition home or self-care (01) ==
LOC: ATC 13:27
DX: N39.0 Urinary tract infection, site not specified (principal); D50.0 Iron deficiency anemia secondary to blood loss (chronic); E11.9 Type 2 diabetes mellitus without complications; N31.9 Neuromuscular dysfunction of bladder, unspecified; G82.20 Paraplegia, unspecified; Z79.4 Long term (current) use of insulin
CPT/HCPCS: 96374; J0696; J1642

== ENCOUNTER 2021-05-22 01:19 | Day surgery (SDC) | payer MEDICARE, OTHER | END 2021-05-22 13:15 | disposition home or self-care (01) | LOC: ATC 01:19 | DX: N39.0 Urinary tract infection, site not specified (principal) | CPT/HCPCS: J0696; J1642 ==

== ENCOUNTER 2021-05-24 00:27 | Day surgery (SDC) | payer MEDICARE, OTHER | END 2021-05-24 13:28 | disposition home or self-care (01) | LOC: ATC 00:27 | DX: N39.0 Urinary tract infection, site not specified (principal) | CPT/HCPCS: J0696; J1642 ==

== ENCOUNTER 2021-06-12 19:19 | Emergency (ER) | payer MEDICARE, OTHER ==
[~2021-06-12] VITALS: Ht 188 cm; Wt 145.2 kg
[2021-06-12] MEDS ORDERED: CEPH500 PO (20:32)
== END 2021-06-12 20:36 | disposition home or self-care (01) ==
LOC: ER 19:19
DX: N39.0 Urinary tract infection, site not specified (principal); Z88.1 Allergy status to other antibiotic agents; Z88.2 Allergy status to sulfonamides; Z88.8 Allergy status to other drugs, medicaments and biological substances; Z79.4 Long term (current) use of insulin; Z79.899 Other long term (current) drug therapy
CPT/HCPCS: 96372; 99283-25; A9270; J0696

== ENCOUNTER 2021-07-15 11:35 | Emergency (ER) | payer MEDICARE, OTHER ==
[~2021-07-15] VITALS: Ht 190.5 cm; Wt 136.1 kg
== END 2021-07-15 13:14 | disposition home or self-care (01) ==
LOC: ER 11:35
DX: N39.0 Urinary tract infection, site not specified (principal); E11.9 Type 2 diabetes mellitus without complications; G47.33 Obstructive sleep apnea (adult) (pediatric); J45.909 Unspecified asthma, uncomplicated; Z79.4 Long term (current) use of insulin; Z79.899 Other long term (current) drug therapy; Z88.1 Allergy status to other antibiotic agents; Z88.8 Allergy status to other drugs, medicaments and biological substances
CPT/HCPCS: A9270

== ENCOUNTER 2021-08-20 18:23 | Inpatient (IN) | payer MEDICARE, OTHER ==
[~2021-08-20] VITALS: Ht 152.4 cm; Wt 151.2 kg
[2021-08-20 19:24] LABS: BASOPHILS ABSOLUTE AUTO 0.06 K/mm3 (0.00-0.23); BASOPHILS PERCENT AUTO 0 % (0-2); EOSINOPHILS PERCENT AUTO 2 % (0-6); Hematocrit 35.6 % (37.0-53.0); Hemoglobin 10.9 g/dL (13.5-17.5); IMMATURE GRAN ABSOLUTE AUTO 0.15 K/mm3 (0.00-0.10); IMMATURE GRAN PERCENT AUTO 1 % (0-1); LYMPHOCYTES ABSOLUTE AUTO 1.09 K/mm3 (0.84-5.20); LYMPHOCYTES PERCENT AUTO 7 % (21-46); MONOCYTES ABSOLUTE AUTO 0.68 K/mm3 (0.16-1.47); MONOCYTES PERCENT AUTO 4 % (4-13); Mean Corpuscular HGB 26.1 pg (26.0-34.0); Mean Corpuscular HGB Conc 30.6 g/dL (31.5-36.5); Mean Corpuscular Volume 85 fL (80-100); Mean Platelet Volume 9.2 fL (9.1-12.4); NEUTROPHILS PERCENT AUTO 86 % (41-73); Platelet Count 381 K/mm3 (150-400); RDW Coefficient Variation 15.4 % (11.7-14.2); RDW Standard Deviation 47.9 fL (35.1-46.3); Red Blood Cell Count 4.17 M/mm3 (4.30-5.90); White Blood Cell Count 16.78 K/mm3 (4.00-11.30)
[2021-08-20 19:49] LABS: Albumin, Blood 2.7 g/dL (3.4-5.0); Albumin/Globulin Ratio 0.6 (0.8-1.8); Bilirubin, Total 0.3 mg/dL (0.1-1.0); Bun/Creatinine Ratio 26.7 (12.0-20.0); Calcium, Blood 8.8 mg/dL (8.5-10.1); Creatinine, Blood 0.79 mg/dL (0.60-1.20); Globulin, Blood 4.3 g/dL (2.2-4.0); Potassium, Blood 4.6 mmol/L (3.5-5.5)
[2021-08-20 19:50] LABS: Source, Urine Clean Catch
[2021-08-20 19:58] LABS: Appearance, Urine Hazy (Clear); Bilirubin, Urine Neg (Neg); Blood, Urine 4+ (Neg); Color, Urine Yellow (P-Yellow); Glucose Qualitative, Urine Neg (Neg); Ketones, Urine Neg (Neg); Leukocyte Esterase, Urine 3+ (Neg); Nitrite, Urine Neg (Neg); Protein, Urine 3+ (Neg); Specific Gravity, Urine 1.005 (1.003-1.022); Urobilinogen, Urine NORM (Normal)
[2021-08-20 20:26] LABS: White Blood Cells, Urine 50-100 /hpf (0-5)
[2021-08-20 20:27] LABS: Red Blood Cells, Urine 25-50 /hpf (0-2)
[2021-08-20 20:29] LABS: Bacteria Many /hpf; Squamous Epithelial Cells Few /hpf (Few)
--- NOTE | 2021-08-21 03:50 | NUR ---
CARE ASSUMPTION: RECEIVED REPORT FROM DIONE ED RN. PATIENT TRANSFERRED FROM [facility] TO BARIATRIC BED USING SLIDE SHEET AND 5 PERSON ASSIST. PATIENT DENIES SOB, CHEST PAIN, OR OTHER DISCOMFORT. O2 SATS >94% ON 3L NC. PATIENT AFEBRILE. WOUNDS REDRESSED AND PHOTOS IN CHART. MEDIPORT WITH NS RUNNING REDRESSED. CALL LIGHT IN REACH, BED LOW.
[2021-08-21 05:28] LABS: BASOPHILS ABSOLUTE AUTO 0.05 K/mm3 (0.00-0.23); BASOPHILS PERCENT AUTO 0 % (0-2); EOSINOPHILS ABSOLUTE AUTO 0.15 K/mm3 (0.00-0.68); EOSINOPHILS PERCENT AUTO 1 % (0-6); Hematocrit 34.2 % (37.0-53.0); Hemoglobin 10.2 g/dL (13.5-17.5); IMMATURE GRAN ABSOLUTE AUTO 0.22 K/mm3 (0.00-0.10); IMMATURE GRAN PERCENT AUTO 2 % (0-1); LYMPHOCYTES ABSOLUTE AUTO 1.46 K/mm3 (0.84-5.20); LYMPHOCYTES PERCENT AUTO 10 % (21-46); MONOCYTES ABSOLUTE AUTO 0.79 K/mm3 (0.16-1.47); MONOCYTES PERCENT AUTO 5 % (4-13); Mean Corpuscular HGB 26.2 pg (26.0-34.0); Mean Corpuscular HGB Conc 29.8 g/dL (31.5-36.5); Mean Corpuscular Volume 88 fL (80-100); Mean Platelet Volume 9.1 fL (9.1-12.4); NEUTROPHILS ABSOLUTE AUTO 12.22 K/mm3 (1.96-9.15); NEUTROPHILS PERCENT AUTO 82 % (41-73); Platelet Count 341 K/mm3 (150-400); RDW Coefficient Variation 15.6 % (11.7-14.2); RDW Standard Deviation 49.9 fL (35.1-46.3); White Blood Cell Count 14.89 K/mm3 (4.00-11.30)
[2021-08-21 05:57] LABS: Albumin, Blood 2.4 g/dL (3.4-5.0); Albumin/Globulin Ratio 0.6 (0.8-1.8); Bilirubin, Total 0.3 mg/dL (0.1-1.0); Bun/Creatinine Ratio 25.1 (12.0-20.0); Calcium, Blood 8.5 mg/dL (8.5-10.1); Creatinine, Blood 0.92 mg/dL (0.60-1.20); Globulin, Blood 3.9 g/dL (2.2-4.0); Potassium, Blood 4.3 mmol/L (3.5-5.5); Total Protein, Blood 6.3 g/dL (6.4-8.2)
--- NOTE | 2021-08-21 06:18 | NUR ---
SHIFT SUMMARY: PATIENT DENIES SOB, CHEST PAIN, N/V. PATIENT HAS BREAKTHROUGH PAIN FROM PREVIOUS NERVE DAMAGE TO RIGHT SHOULDER - HOME DOSE OF OXYCODONE PRESCRIBED. MEDICATED PER EMAR. NS RUNNING 75 MLS/HR TO MEDIPORT. WEN DRAINING TO GRAVITY. PATIENT ON HOME DOSE 3L NC AND O2 SATS >95%. PATIENT IN RENTED BARIATRIC BED. PATIENT A&O X4, VS WNL FOR PATIENT. HOME MEDS REOCONCILED. BED LOW WITH CALL LIGHT IN REACH. WILL REPORT TO ONCOMING RN.
--- NOTE | 2021-08-21 19:34 | NUR ---
CARE ASSUMPTION: PATIENT A&O X4, VS WNL ON 3L NC. PATIENT REQUESTED "SOMETHING DIET THAT ISN'T PEPSI" IF WE HAVE IT. WOUND SURVEY RESEARCH MANAGER SAID TO LEAVE DRESSINGS UNLESS THEY BECOME SATURATED - PLAN TO CHANGE TOMORROW. PATIENT LOOKING FORWARD TO GOING HOME TOMORROW. BED LOW WITH CALL LIGHT IN REACH.
--- NOTE | 2021-08-21 19:56 | NUR ---
END OF SHIFT: LATE ENTRY, PATIENT HSA BEEN AFEBRILE, WITH THE USE OF TYLENOL, AND IMPROVEMENT WITH FLUIDS AND ATX, RECIEVED TWO DOSES OF CEFEPIME 1 G FROM THIS STEEL FINISHER. PATIENT DENIES CHEST PAIN OR SOB, HAS BEEN REPOSITIONED WITH AIR BED AND MANUAL TURNS ATLEAST Q1-Q2. PATIENT MEDICATED FOR PAIN PER MAR AND HAD FAIRLY GOOD CONTROL, WHEN ADMINISTERED ALMOST SCHEDULE FOR PRN OXYCODONE. PATIENT HSA BEEN ALERT AND ORIENTED PLEASANT, HAD A BED BAHT, WOUND CONSULT HAS BEEN IN PLACE, WAS CHANGED TO MEDICAL STATUS, HOSPITALIST ON BOARD FOR DISCHARGE AFTER MEENA REPORT AND ORAL ATX. PATIENT WAS AT BEDSIDE AT TIMES. NO FURTHER CONCERNS QUESTIONS FORM EITHER THE PATIENT OR THIS STEEL FINISHER.
--- NOTE | 2021-08-22 06:05 | NUR ---
SHIFT SUMMARY: PATIENT DENIES SOB/CHEST PAIN OR OTHER DISCOMFORT. AFEBRILE AND VS WNL FOR PATIENT ON 2.5L NC. MEDICATED PER EMAR. NS TKO TO [facility] SITE. TELE WAS D/C'D. PATIENT'S SKIN IS CLAMMY AT TIMES. WEN DRAINING TO GRAVITY AND COLOSTOMY IN PLACE. DRESSINGS C/D/I AND WOUND CARE TO COME BY TODAY TO REASSESS. PATIENT HAS REFUSED REPOSITIONING AT TIMES. PLEASANT AND COOPERATIVE WITH CARE OTHERWISE. NO ADVERSE EVENTS THIS SHIFT. PATIENT LOOKING FORWARD TO DISCHARGING HOME TODAY. BED LOW WITH CALL LIGHT IN REACH. WILL CONTINUE TO MONITOR AND REPORT TO ONCOMING RN.
--- NOTE | 2021-08-22 07:44 | NUR ---
Pt is alert, oriented, and pleasantly conversant. C/O pain in his shoulder and arms, which is chronic from a "botched back surgery". He was given PRN medications as ordered for pain. Noted mediport dressing was no longer intact. Pt states that it comes loose from his sweaty skin causing the adhesive not to stick. It was changed.
[2021-08-22 09:12] LABS: BASOPHILS ABSOLUTE AUTO 0.05 K/mm3 (0.00-0.23); BASOPHILS PERCENT AUTO 1 % (0-2); EOSINOPHILS ABSOLUTE AUTO 0.41 K/mm3 (0.00-0.68); EOSINOPHILS PERCENT AUTO 5 % (0-6); Hematocrit 33.1 % (37.0-53.0); Hemoglobin 9.8 g/dL (13.5-17.5); IMMATURE GRAN ABSOLUTE AUTO 0.13 K/mm3 (0.00-0.10); IMMATURE GRAN PERCENT AUTO 2 % (0-1); LYMPHOCYTES ABSOLUTE AUTO 1.46 K/mm3 (0.84-5.20); LYMPHOCYTES PERCENT AUTO 18 % (21-46); MONOCYTES ABSOLUTE AUTO 0.58 K/mm3 (0.16-1.47); MONOCYTES PERCENT AUTO 7 % (4-13); Mean Corpuscular HGB 26.3 pg (26.0-34.0); Mean Corpuscular HGB Conc 29.6 g/dL (31.5-36.5); Mean Corpuscular Volume 89 fL (80-100); Mean Platelet Volume 9.3 fL (9.1-12.4); NEUTROPHILS ABSOLUTE AUTO 5.55 K/mm3 (1.96-9.15); NEUTROPHILS PERCENT AUTO 68 % (41-73); Platelet Count 298 K/mm3 (150-400); RDW Coefficient Variation 15.6 % (11.7-14.2); RDW Standard Deviation 51.1 fL (35.1-46.3); Red Blood Cell Count 3.73 M/mm3 (4.30-5.90); White Blood Cell Count 8.18 K/mm3 (4.00-11.30)
[2021-08-22] MEDS ORDERED: Cefpodoxime Pr200 MG PO (12:21)
--- NOTE | 2021-08-22 15:23 | NUR ---
wound care was completed just before discharge. Wound clinic says that the talent acquisition lead is not here on Tuesdays. Wounds were cleansed with skintegrity, and patted dry with sterile 4x4 gauze. Buttock wounds were packed with calcium alginate, and then covered with suprabsorb mepitel blue dressings, and secured with white medipore tape. Pt was assisted to put on his compression stocking, and also his clothing after he had changed his min collection bag for a urine leg bag. Slide board and slider sheet used to transfer the patient to his wheelchair. His and brother in law took him out to his own wheelchair van, to go home. There had apparently been a problem with the van on the way to the hosptial, but the brother in law stated that it was now okay. However, the pt was given the option to pay on his own for a wheelchair transport through [facility] as his insurance does not cover it, but he declined and instead chose to use his own van to get home.
== END 2021-08-22 15:10 | disposition home health service (06) | DRG 698 ==
LOC: ER 18:23 → PCU 23:46
PROVIDERS: Internal Medicine; Physician Assistant; ADMIT Internal Medicine
DX: T83.511A Infection and inflammatory reaction due to indwelling urethral catheter, initial encounter (principal); L89.44 Pressure ulcer of contiguous site of back, buttock and hip, stage 4; L89.223 Pressure ulcer of left hip, stage 3; L89.213 Pressure ulcer of right hip, stage 3; L89.513 Pressure ulcer of right ankle, stage 3; A41.4 Sepsis due to anaerobes; G82.20 Paraplegia, unspecified; J96.11 Chronic respiratory failure with hypoxia; E11.9 Type 2 diabetes mellitus without complications; G47.33 Obstructive sleep apnea (adult) (pediatric); J45.909 Unspecified asthma, uncomplicated; N31.9 Neuromuscular dysfunction of bladder, unspecified; D64.9 Anemia, unspecified; N39.0 Urinary tract infection, site not specified; M62.838 Other muscle spasm; F11.90 Opioid use, unspecified, uncomplicated; Z99.81 Dependence on supplemental oxygen; Z98.890 Other specified postprocedural states; S24.103S Unspecified injury at T7-T10 level of thoracic spinal cord, sequela; Z88.1 Allergy status to other antibiotic agents; Z88.2 Allergy status to sulfonamides; Z79.2 Long term (current) use of antibiotics; Z79.4 Long term (current) use of insulin; Z79.899 Other long term (current) drug therapy; Y84.6 Urinary catheterization as the cause of abnormal reaction of the patient, or of later complication, without mention of misadventure at the time of the procedure
CPT/HCPCS: 36415; 51702; 71045; 80053; 81001; 82947; 83605; 83880; 85025; 87077; 87081; 87086; 87186; 94762; 96365; 96366; 96367; 96372; 96375; 99284-25; A9270; J0692; J0696; J1642; J1650; J1815; J2248; J2270; J2405; J7030; J7040

== ENCOUNTER 2021-10-17 14:25 | Day surgery (SDC) | payer MEDICARE, OTHER ==
[~2021-10-17 14:25] MED LIST changes: +Cefpodoxime Pr200 MG PO; +FERROUS GLUCON324 M2 PO; +Klor-Con-Ef 2525 MEQ PO; -Micro-K10 MEQ PO; +SENN187 PO; +[UNRECOGNIZED DRUG - OTHER] TOP
[2021-10-17 15:04] LABS: BASOPHILS ABSOLUTE AUTO 0.07 K/mm3 (0.00-0.23); BASOPHILS PERCENT AUTO 1 % (0-2); EOSINOPHILS ABSOLUTE AUTO 0.38 K/mm3 (0.00-0.68); EOSINOPHILS PERCENT AUTO 3 % (0-6); Hematocrit 32.7 % (37.0-53.0); Hemoglobin 9.7 g/dL (13.5-17.5); IMMATURE GRAN ABSOLUTE AUTO 0.19 K/mm3 (0.00-0.10); IMMATURE GRAN PERCENT AUTO 1 % (0-1); LYMPHOCYTES ABSOLUTE AUTO 1.17 K/mm3 (0.84-5.20); LYMPHOCYTES PERCENT AUTO 9 % (21-46); MONOCYTES ABSOLUTE AUTO 0.94 K/mm3 (0.16-1.47); MONOCYTES PERCENT AUTO 7 % (4-13); Mean Corpuscular HGB 26.1 pg (26.0-34.0); Mean Corpuscular HGB Conc 29.7 g/dL (31.5-36.5); Mean Corpuscular Volume 88 fL (80-100); NEUTROPHILS ABSOLUTE AUTO 10.79 K/mm3 (1.96-9.15); NEUTROPHILS PERCENT AUTO 80 % (41-73); Platelet Count 455 K/mm3 (150-400); RDW Standard Deviation 51.9 fL (35.1-46.3); Red Blood Cell Count 3.71 M/mm3 (4.30-5.90); White Blood Cell Count 13.54 K/mm3 (4.00-11.30)
[2021-10-17 15:50] LABS: Alanine Aminotransfer (ALT/SGP 21 U/L (12-78); Albumin, Blood 2.5 g/dL (3.4-5.0); Albumin/Globulin Ratio 0.6 (0.8-1.8); Alk Phos 105 U/L (50-136); Anion Gap 1 mmol/L (6-16); Aspartate Aminotrans (AST/SGOT 11 U/L (12-37); Bilirubin, Total 0.2 mg/dL (0.1-1.0); Blood Urea Nitrogen 47 mg/dL (8-24); Bun/Creatinine Ratio 30.5 (12.0-20.0); CHOL/HDL RATIO 4.1; CO2, Blood 31 mmol/L (21-32); Chloride, Blood 109 mmol/L (98-108); Cholesterol 138 mg/dL (50-200); Creatinine, Blood 1.54 mg/dL (0.60-1.20); Ferritin, Serum 578 ng/mL (26-388); Globulin, Blood 4.5 g/dL (2.2-4.0); Glomerular Filtration Rate 49 (60-); Glucose, Blood 86 mg/dL (70-99); HDL Cholesterol 34 mg/dL (>39); Iron Serum 29 ug/dL (65-175); LDL/HDL RATIO 2.1; Low Density Lipoprotein Chol 73 mg/dL (0-110); Percent Saturation 15.6 % (20.0-50.0); Potassium, Blood 5.9 mmol/L (3.5-5.5); Sodium, Blood 141 mmol/L (136-145); Total Iron Binding Capacity 186 ug/dL (250-450); Triglycerides 155 mg/dL (30-160); Very Low Density Lipoprot Chol 31 mg/dL (6-32)
[2021-10-17] MEDS ORDERED: ZANAFLEX PO (22:49)
[2021-10-17] MEDS ORDERED: Klor-Con-Ef 2525 MEQ PO (22:49)
[2021-10-18] MEDS ORDERED: GABA300 PO (17:12)
[2021-10-18] MEDS ORDERED: Klor-Con-Ef 2525 MEQ PO (17:18)
[2021-10-18] MEDS ORDERED: Oxybutynin Chlo10 MG PO (17:20)
[2021-10-18] MEDS ORDERED: ALLEGRA ALLERG180 MG PO (17:20)
[2021-10-18] MEDS ORDERED: VITAMIN D31000 UNI1 PO (17:21)
[2021-10-18] MEDS ORDERED: CENTRUM SILVER1 EAC2 PO (17:22)
[2021-10-18] MEDS ORDERED: METAMUCIL POWD798 GM PO (17:22)
[2021-10-18] MEDS ORDERED: QUERCETIN DIHYDR1 GM PO (17:24)
== END 2021-10-17 14:41 | disposition home or self-care (01) ==
LOC: ATC 14:25
PROVIDERS: Nurse Practitioner Family
DX: Z45.2 Encounter for adjustment and management of vascular access device (principal); E11.9 Type 2 diabetes mellitus without complications; J45.909 Unspecified asthma, uncomplicated; G47.33 Obstructive sleep apnea (adult) (pediatric); Z88.1 Allergy status to other antibiotic agents; Z88.8 Allergy status to other drugs, medicaments and biological substances; Z79.4 Long term (current) use of insulin; Z79.899 Other long term (current) drug therapy
CPT/HCPCS: 36591; 80053; 80061; 82607; 82728; 82746; 83036; 83540; 83550; 84443; 85025; J1642

== ENCOUNTER 2021-10-17 17:41 | Inpatient (IN) | payer MEDICARE, BC ==
[~2021-10-17] VITALS: Ht 188 cm; Wt 146.5 kg
[2021-10-17 21:13] LABS: Influenza A, PCR NEGATIVE (NEGATIVE); Influenza B, PCR NEGATIVE (NEGATIVE); Resp Syncytial Virus, PCR NEGATIVE (NEGATIVE); SARS-Cov-2 (COVID-19) PCR, MMC NEGATIVE (NEGATIVE)
[2021-10-17 21:25] LABS: Source, Urine Foley catheter
[2021-10-17 21:36] LABS: Appearance, Urine Hazy (Clear); Bilirubin, Urine Neg (Neg); Blood, Urine 4+ (Neg); Color, Urine Yellow (P-Yellow); Glucose Qualitative, Urine Neg (Neg); Ketones, Urine Neg (Neg); Leukocyte Esterase, Urine 3+ (Neg); Nitrite, Urine Neg (Neg); Protein, Urine 2+ (Neg); Urobilinogen, Urine NORM (Normal)
[2021-10-17 21:49] LABS: Bacteria Mod /hpf; Squamous Epithelial Cells Not Seen /hpf (Few); White Blood Cells, Urine TNTC /hpf (0-5)
[2021-10-17 22:19] LABS: BASOPHILS ABSOLUTE AUTO 0.07 K/mm3 (0.00-0.23); BASOPHILS PERCENT AUTO 1 % (0-2); EOSINOPHILS ABSOLUTE AUTO 0.41 K/mm3 (0.00-0.68); EOSINOPHILS PERCENT AUTO 3 % (0-6); Hematocrit 32.4 % (37.0-53.0); Hemoglobin 9.6 g/dL (13.5-17.5); IMMATURE GRAN ABSOLUTE AUTO 0.15 K/mm3 (0.00-0.10); IMMATURE GRAN PERCENT AUTO 1 % (0-1); LYMPHOCYTES ABSOLUTE AUTO 1.55 K/mm3 (0.84-5.20); LYMPHOCYTES PERCENT AUTO 12 % (21-46); MONOCYTES ABSOLUTE AUTO 0.74 K/mm3 (0.16-1.47); MONOCYTES PERCENT AUTO 6 % (4-13); Mean Corpuscular HGB 25.9 pg (26.0-34.0); Mean Corpuscular HGB Conc 29.6 g/dL (31.5-36.5); Mean Corpuscular Volume 88 fL (80-100); Mean Platelet Volume 8.9 fL (9.1-12.4); NEUTROPHILS ABSOLUTE AUTO 9.69 K/mm3 (1.96-9.15); NEUTROPHILS PERCENT AUTO 77 % (41-73); Platelet Count 431 K/mm3 (150-400); RDW Coefficient Variation 16.1 % (11.7-14.2); RDW Standard Deviation 51.6 fL (35.1-46.3); White Blood Cell Count 12.61 K/mm3 (4.00-11.30)
[2021-10-17 22:42] LABS: Albumin, Blood 2.5 g/dL (3.4-5.0); Albumin/Globulin Ratio 0.6 (0.8-1.8); Bilirubin, Total 0.2 mg/dL (0.1-1.0); Bun/Creatinine Ratio 27.8 (12.0-20.0); Calcium, Blood 8.7 mg/dL (8.5-10.1); Creatinine, Blood 1.69 mg/dL (0.60-1.20); Globulin, Blood 4.5 g/dL (2.2-4.0)
[2021-10-17] MEDS ORDERED: Klor-Con-Ef 2525 MEQ PO (22:49)
[2021-10-17] MEDS ORDERED: ZANAFLEX PO (22:49)
[2021-10-18 01:27] LABS: Bun/Creatinine Ratio 27.9 (12.0-20.0); Calcium, Blood 7.1 mg/dL (8.5-10.1); Creatinine, Blood 1.4 mg/dL (0.60-1.20); Potassium, Blood 4.7 mmol/L (3.5-5.5)
[2021-10-18 05:32] LABS: BASOPHILS ABSOLUTE AUTO 0.08 K/mm3 (0.00-0.23); BASOPHILS PERCENT AUTO 1 % (0-2); EOSINOPHILS ABSOLUTE AUTO 0.42 K/mm3 (0.00-0.68); EOSINOPHILS PERCENT AUTO 4 % (0-6); Hematocrit 32.4 % (37.0-53.0); Hemoglobin 9.8 g/dL (13.5-17.5); IMMATURE GRAN ABSOLUTE AUTO 0.14 K/mm3 (0.00-0.10); IMMATURE GRAN PERCENT AUTO 1 % (0-1); LYMPHOCYTES ABSOLUTE AUTO 1.62 K/mm3 (0.84-5.20); LYMPHOCYTES PERCENT AUTO 14 % (21-46); MONOCYTES ABSOLUTE AUTO 0.68 K/mm3 (0.16-1.47); MONOCYTES PERCENT AUTO 6 % (4-13); Mean Corpuscular HGB 26.6 pg (26.0-34.0); Mean Corpuscular HGB Conc 30.2 g/dL (31.5-36.5); Mean Corpuscular Volume 88 fL (80-100); Mean Platelet Volume 8.8 fL (9.1-12.4); NEUTROPHILS ABSOLUTE AUTO 8.44 K/mm3 (1.96-9.15); NEUTROPHILS PERCENT AUTO 74 % (41-73); Platelet Count 457 K/mm3 (150-400); RDW Coefficient Variation 16.1 % (11.7-14.2); Red Blood Cell Count 3.69 M/mm3 (4.30-5.90); White Blood Cell Count 11.38 K/mm3 (4.00-11.30)
[2021-10-18 06:09] LABS: Albumin, Blood 2.4 g/dL (3.4-5.0); Anion Gap 5 mmol/L (6-16); Blood Urea Nitrogen 42 mg/dL (8-24); Bun/Creatinine Ratio 25.9 (12.0-20.0); CO2, Blood 27 mmol/L (21-32); Calcium, Blood 8.3 mg/dL (8.5-10.1); Chloride, Blood 107 mmol/L (98-108); Creatinine, Blood 1.62 mg/dL (0.60-1.20); Glomerular Filtration Rate 46 (60-); Glucose, Blood 168 mg/dL (70-99); Phosphorus, Blood 4.4 mg/dL (2.5-4.9); Potassium, Blood 5.4 mmol/L (3.5-5.5); Sodium, Blood 139 mmol/L (136-145)
[2021-10-18] MEDS ORDERED: GABA300 PO (17:12)
[2021-10-18] MEDS ORDERED: Klor-Con-Ef 2525 MEQ PO (17:18)
[2021-10-18] MEDS ORDERED: Oxybutynin Chlo10 MG PO (17:20)
[2021-10-18] MEDS ORDERED: ALLEGRA ALLERG180 MG PO (17:20)
[2021-10-18] MEDS ORDERED: VITAMIN D31000 UNI1 PO (17:21)
[2021-10-18] MEDS ORDERED: METAMUCIL POWD798 GM PO (17:22)
[2021-10-18] MEDS ORDERED: CENTRUM SILVER1 EAC2 PO (17:22)
[2021-10-18] MEDS ORDERED: QUERCETIN DIHYDR1 GM PO (17:24)
--- NOTE | 2021-10-18 19:48 | NUR ---
SHIFT SUMMARY- PT ALERT AND ORIENTED ADMITTED THROUGH THE ED. PT BED BOUND AT BASELINE, LIFT FOR TRANSFERS. PT HAS A VERY WEAK COUGH THIS EVENING AT SHIFT CHANGE. CALLED DR LIN WHEN PT ARRIVED ON MEDICAL FLOOR, PT MED REC COMPLETED ONCE MEDITECH WAS AVAILABLE. SPOKE ABOUT PT PAIN MEDICATION REGIMENT AND RECIEVED AN ORDER FOR PT HOME DOSE AND FREQUENCY OF OXY AND MS CONTIN WELL GABAPENTIN. ADMIT ASSESSMENT COMPLETED HOWEVER ADMIT Hx NOT COMPLETED, PASSED ON TO NIGHT RN IN BEDSIDE REPORT. PT WOUND CARE AND DRESSING CHANGES WERE COMPLETED AT THE TIME OF ARRIVAL. PER REPORT FROM ED RN THERE WAS A WOUND CARE ORDER PLACED VERBALLY BY DR LIN PRIOR TO DOWNTIME. CALLED [employer] AND SPOKE TO HER, NOONE IS AVAILABLE TO SEE THE PT SATURDAY THEY WILL SEE HIM SATURDAY. WOUND CONSULT WILL BE PLACED A VERBAL ORDER. BEDSIDE REPORT COMPLETED WITH NIGHT RN. PT IN BED NO S&S OF DISTRESS NOTED AT THE TIME OF REPORT.
[2021-10-19 05:28] LABS: Hematocrit 31.4 % (37.0-53.0); Hemoglobin 9.2 g/dL (13.5-17.5); Mean Corpuscular HGB 26.1 pg (26.0-34.0); Mean Corpuscular HGB Conc 29.3 g/dL (31.5-36.5); Mean Corpuscular Volume 89 fL (80-100); Mean Platelet Volume 8.8 fL (9.1-12.4); Platelet Count 418 K/mm3 (150-400); RDW Coefficient Variation 15.9 % (11.7-14.2); RDW Standard Deviation 52.2 fL (35.1-46.3); Red Blood Cell Count 3.52 M/mm3 (4.30-5.90); White Blood Cell Count 10.98 K/mm3 (4.00-11.30)
[2021-10-19 06:03] LABS: Albumin, Blood 2.1 g/dL (3.4-5.0); Albumin/Globulin Ratio 0.5 (0.8-1.8); Bilirubin, Total 0.3 mg/dL (0.1-1.0); Bun/Creatinine Ratio 22.5 (12.0-20.0); Calcium, Blood 8.2 mg/dL (8.5-10.1); Creatinine, Blood 1.51 mg/dL (0.60-1.20); Globulin, Blood 4.1 g/dL (2.2-4.0); Total Protein, Blood 6.2 g/dL (6.4-8.2)
--- NOTE | 2021-10-19 06:47 | NUR ---
SUMMARY PT PAIN MANAGED WELL THROUGHOUT SHIFT. PT REPORTED A COUGH BEGINNING OF SHIFT, COUGH MEDS ORDERED. PT REPORTS COUGH RELIEF. PT REPOSITIONED TOLERATED. PT DRESSING CDI, PT WEN DRAINING TO GRAVITY, NO LEAKING NOTED. NO FEVERS NOTED. CALL LIGHT IN REACH.
--- NOTE | 2021-10-19 19:25 | NUR ---
SHIFT SUMMARY- PT ALERT AND ORIENTED. PT WAS TRANSFERED TO A BARIATRIC AIR BED FOR HIS SIZE AND WOUNDS. SPOKE TO DR LIN THIS MORNING ABOUT REMOVING HIS CHRONIC WEN AND REPLACING IT WITH A NEW ONE PRIOR TO COLLECTING THE URINE SAMPLE FOR THE CULTURE. IT WAS DIFFICULT TO FIND THE PT SPECIFIC CATHETER IT WAS A 20F WITH A 30 ML BALOON. WHEN THE OLD CATH WAS REMOVED THERE WAS GUSH OF THICK YELLOW AND WHITE URINE WITH CHUNKS OF FLOATING SEDIMENT. AREA WAS CLEANED FOR NEW WEN PLACEMENT, IT WAS DIFFICULT TO DETERMINE THE CATH WAS IN THE CORRECT PLACE BECAUSE THE BLADDER WAS LIKELY EMPTY. THE CATH WAS HELD IN PLACE FOR A FEW MINUTES THEN FLUSHED WITH STERILE WATER. SOME BLOOD CLOTS PASSED THROUGH THE LINE WELL THICK SEDIMENT. WEN WAS DRAINING AFTER PLACEMENT AND BALOON WAS INFLATED. PT STATED THAT HOME HEALTH AND HIS CHANGE THESE FOR HIM REGULARLY. SPECIMEN NOT COLLECTED AT THE TIME OF INSERTION D/T FLUSHING WITH STERILE WATER. NIGHT RN WILL COLLECT SPECIMEN. BEDSIDE REPORT COMPLETED WITH NIGHT RN. PT SITTING UP IN BED, CALL LIGHT IN REACH, NO S/S OF DISTRESS NOTED.
[2021-10-20 05:28] LABS: Hematocrit 31.2 % (37.0-53.0); Hemoglobin 9.2 g/dL (13.5-17.5); Mean Corpuscular HGB 26.3 pg (26.0-34.0); Mean Corpuscular HGB Conc 29.5 g/dL (31.5-36.5); Mean Corpuscular Volume 89 fL (80-100); Mean Platelet Volume 8.5 fL (9.1-12.4); Platelet Count 420 K/mm3 (150-400); RDW Coefficient Variation 15.7 % (11.7-14.2); RDW Standard Deviation 50.8 fL (35.1-46.3)
[2021-10-20 05:53] LABS: Albumin, Blood 2.1 g/dL (3.4-5.0); Albumin/Globulin Ratio 0.5 (0.8-1.8); Bilirubin, Total 0.2 mg/dL (0.1-1.0); Bun/Creatinine Ratio 23.3 (12.0-20.0); Calcium, Blood 8.3 mg/dL (8.5-10.1); Creatinine, Blood 1.33 mg/dL (0.60-1.20); Globulin, Blood 4.2 g/dL (2.2-4.0); Percent Saturation 25.3 % (20.0-50.0); Potassium, Blood 5.2 mmol/L (3.5-5.5); Total Protein, Blood 6.3 g/dL (6.4-8.2)
--- NOTE | 2021-10-20 06:19 | NUR ---
NIGHTSIFHT SUMMARY Patient doing well, no acute changes to patient status. ABX IV administred, NS infusing via mediport. Mediport dressing CDI. UA from new min catheter sent to lab, results pending. Tele NSR, vitals stable, CBG WNL. Patient requesting PRN oxycodone for shoulder pain, PRN effective. No other concerns at this time, will continue to monitor.
--- NOTE | 2021-10-20 10:12 | NUR ---
MR DAVIDSON C/O SOME FEELINGS OF SOB. SAID EXPECTORATING SOME MEDIUM THICK CLEAR SPUTUM. PT SAID HE IS EATING AND DRINKING WELL, NO NAUSEA. CALLED DR LIN - MARIANELA NS CHANGED FROM 100CC/HR TO KVO.
--- NOTE | 2021-10-20 16:56 | NUR ---
SHIFT SUMMARY MR DAVIDSON IS OX4. ON BARIATRIC SPECIALISED AIR BED. ABLE TO TURN WITH ASSISTANCE IN BED. DRESSING CHANGES DONE TO SACRAL AREA X 2 AND R ANKLE. SKIN FRIABLE. MEDIPOPRT R CHEST WITH NS AND KVO. WEN CATHETER WITH CLOUDY URINE IN TUBING, LEAKING AROUND SITE WHICH HE SAID IS NORMAL. PT HAS CHANGED HIS OWN OSTOMY BAG. C/O COUGH WITH CLEAR SPUTUM. CXR DONE AND SPUTUM SAMPLE REQUESTED. ABDOMEN FIRM AND DISTENDED BUT NOT PAINFUL PER PT. C/O CHRONIC R SHOULDER PAIN THAT HE TAKES REGULAR NARCOTICS FOR. BED LOW, CALL LIGHT IN REACH.
--- NOTE | 2021-10-21 03:41 | NUR ---
NIGHTSHIFT SUMMARY Dressings on buttcoks/ankle CDI. Patient declined repositioning this shift, stated he cannot sleep side lying, and was only comfortable in supine/semi-fowlers. Moreno catheter patent, draining to gravity. Colostomy appliance CDI. Sputum Culture sent to lab, Lab called and reported sample was contmainated with squamous tissue & needed to be recollected. CBG WNL, vitals stable, will continue to monitor.
[2021-10-21 05:17] LABS: Hematocrit 31.2 % (37.0-53.0); Hemoglobin 9.4 g/dL (13.5-17.5); Mean Corpuscular HGB 26.6 pg (26.0-34.0); Mean Corpuscular HGB Conc 30.1 g/dL (31.5-36.5); Mean Corpuscular Volume 88 fL (80-100); Mean Platelet Volume 8.6 fL (9.1-12.4); Platelet Count 416 K/mm3 (150-400); RDW Coefficient Variation 15.7 % (11.7-14.2); RDW Standard Deviation 50.7 fL (35.1-46.3); Red Blood Cell Count 3.53 M/mm3 (4.30-5.90); White Blood Cell Count 8.87 K/mm3 (4.00-11.30)
[2021-10-21 05:40] LABS: Albumin, Blood 2.3 g/dL (3.4-5.0); Albumin/Globulin Ratio 0.6 (0.8-1.8); Bilirubin, Total 0.1 mg/dL (0.1-1.0); Bun/Creatinine Ratio 24.5 (12.0-20.0); Calcium, Blood 8.8 mg/dL (8.5-10.1); Creatinine, Blood 1.1 mg/dL (0.60-1.20); Globulin, Blood 4.1 g/dL (2.2-4.0); Magnesium, Blood 2.1 mg/dL (1.6-2.4); Potassium, Blood 5.3 mmol/L (3.5-5.5); Total Protein, Blood 6.4 g/dL (6.4-8.2)
--- NOTE | 2021-10-21 13:44 | NUR ---
MR LETY IS A&OX4. C/O CHRONIC R SHOULDER PAIN REQUIRING PRN OXY Q4HRS FOR PAIN RELIEF. RPT SPUTUM SAMPLE REQUESTED FROM PT LAST ONE WAS CONTAMINATED, PT HAS NOT EXPECTORATED TODAY. HE SAID HIS BREATHING FEELS EASIER THAN YESTERDAY. NO CALLS FROM TELETECH. WEN WITH CLOUDY URINE TO BEDSIDE DRAINAGE. HYPERTENSIVE THIS AM WITH INCREASED PAIN. SBP 160S AFTER RELIEF. VISITING TODAY. SPECIALTY BED WITH AIR MATTRESS.
--- NOTE | 2021-10-21 18:09 | NUR ---
SHIFT SUMMARY WOUND DRESSING CHANGES DONE THIS AFTERNOON WITH HIS IN THE ROOM TO SEE PROGRESS AND GIVE INPUT. SHE SAID THAT THE LEFT BUTTOCK AND THE ANKLE WOUNDS LOOK LIKE THEY DID WHEN MR DAVIDSON WAS HOME, NO WORSE, ANKLE POSSIBLY SIGHTLY BETTER. THE RIGHT BUTTOCK ACTUAL WOUND CAVITY LOOKS SIMILAR EXCEPT FOR SLIGHTLY MORE WHITE AROUND THE EDGES OF THE WOUND. THE VERY FRAGILE PURPLE SKIN SURROUNDING THE CAVITY IS BETTER TO HER THAN WHEN SHE SAW IT ON ADMISSION, BUT WORSE THAN THE REDDENED FRAGILE SKIN HE HAD WHEN HE WAS AT HOME. NO SPUTUM SAMPLE COLLECTED TODAY MR DAVIDSON HAS NOT EXPECTORATED ON THIS SHIFT. HE REMAINS HYPERTENSIVE DESPITE CHANGE IN MEDS AND REGULAR PAIN RELIEF FOR R SHOULDER PAIN. URINE WITH MUCH SEDIMENT IN IT TO WEN CATHETER. MR DAVIDSON SAID THAT HE IRRIGATES THE WEN DAILY AT HOME WITH VINEGAR/WATER MIXTURE. NO CALLS FROM TELE, LAST POSTED STRIP SR WITH SENG.
[2021-10-22 05:32] LABS: Hematocrit 31.4 % (37.0-53.0); Hemoglobin 9.2 g/dL (13.5-17.5); Mean Corpuscular HGB 25.8 pg (26.0-34.0); Mean Corpuscular HGB Conc 29.3 g/dL (31.5-36.5); Mean Corpuscular Volume 88 fL (80-100); Mean Platelet Volume 8.8 fL (9.1-12.4); Platelet Count 396 K/mm3 (150-400); RDW Coefficient Variation 15.4 % (11.7-14.2); RDW Standard Deviation 49.4 fL (35.1-46.3); Red Blood Cell Count 3.56 M/mm3 (4.30-5.90); White Blood Cell Count 10.03 K/mm3 (4.00-11.30)
--- NOTE | 2021-10-22 06:24 | NUR ---
SHIFT SUMMARY: PATIENT CONTINUES TO REPORT CHRONIC R SHOULDER PAIN. SCHEDULED MORPHINE AND PRN OXYCODONE ARE EFFECTIVE FOR PAIN CONTROL, VSS REFUSES MOST TURNS. BETTYE IS PATENT FOR LARGE AMOUNTS OF CLOUDY YELLOW URINE.
[2021-10-22 06:28] LABS: Albumin, Blood 2.3 g/dL (3.4-5.0); Albumin/Globulin Ratio 0.7 (0.8-1.8); Bilirubin, Total 0.1 mg/dL (0.1-1.0); Bun/Creatinine Ratio 27.3 (12.0-20.0); Calcium, Blood 8.5 mg/dL (8.5-10.1); Creatinine, Blood 0.92 mg/dL (0.60-1.20); Globulin, Blood 3.4 g/dL (2.2-4.0); Magnesium, Blood 1.8 mg/dL (1.6-2.4); Potassium, Blood 5.3 mmol/L (3.5-5.5); Total Protein, Blood 5.7 g/dL (6.4-8.2)
--- NOTE | 2021-10-22 11:15 | NUR ---
MR DAVIDSON HAS BEEN UNCOMFORTABLE WITH R SHOULDER PAIN THIS MORNING. MEDICATED PER APR. NO BM FROM OSTOMY, FEELS "GASSY". GIVEN COLACE AND MIRILAX IN PRUNE JUICE. NOT EXPECTORATING SPUTUM. MR DAVIDSON WANTS TO WAIT FOR DRESSING CHANGES UNTIL HIS SHOULDER FEELS LESS PAINFUL.
--- NOTE | 2021-10-22 16:21 | NUR ---
SHIFT SUMMARY MR DAVIDSON REPORTS THAT HE DIDN'T SLEEP WELL LAST NIGHT. HE HAS A HEADACHE THAT HE WAS GIVEN TYLENOL FOR. HE SAID THAT HIS RIGHT SHOULDER HAS BEEN PAINFUL TODAY, MEDICATED FOR THAT. WOUND DRESSINGS DONE - R BUTTOCK AREA SURROUNDING SKIN IS PURPLE AND FRIABLE. CAREFULLY CLEANSED AND DRIED, TRYING TO KEEP SHEET WITHOUT ANY WRINKLES UNDER HIM, ON SPECIALISED AIR MATTRESS. HIS COLOSTOMY HAS NOT BEEN ACTIVE TODAY. HE SAID THAT HE THINKS THAT THE BOWEL MEDICATIONS THAT HE TOOK EARIER TODAY WILL BE ENOUGH TO GET THE COLOSTOMY ACTIVE. NO C/O SOB, NOT EXPECTORATING. WEN WITH HIGH UOP, SEDIMENT NOTED IN URINE. BED LOW, CALL LIGHT IN REACH.
[2021-10-23 06:22] LABS: Hematocrit 33.9 % (37.0-53.0); Hemoglobin 10.2 g/dL (13.5-17.5); Mean Corpuscular HGB 26.1 pg (26.0-34.0); Mean Corpuscular HGB Conc 30.1 g/dL (31.5-36.5); Mean Corpuscular Volume 87 fL (80-100); Mean Platelet Volume 8.7 fL (9.1-12.4); Platelet Count 411 K/mm3 (150-400); RDW Coefficient Variation 15.6 % (11.7-14.2); RDW Standard Deviation 49.1 fL (35.1-46.3); Red Blood Cell Count 3.91 M/mm3 (4.30-5.90); White Blood Cell Count 10.31 K/mm3 (4.00-11.30)
[2021-10-23 06:44] LABS: Albumin, Blood 2.5 g/dL (3.4-5.0); Albumin/Globulin Ratio 0.6 (0.8-1.8); Bilirubin, Total 0.3 mg/dL (0.1-1.0); Bun/Creatinine Ratio 26.3 (12.0-20.0); Calcium, Blood 8.6 mg/dL (8.5-10.1); Creatinine, Blood 0.91 mg/dL (0.60-1.20); Globulin, Blood 4.2 g/dL (2.2-4.0); Potassium, Blood 5.1 mmol/L (3.5-5.5); Total Protein, Blood 6.7 g/dL (6.4-8.2)
--- NOTE | 2021-10-23 07:44 | NUR ---
SHIFT SUMMARY: RIGHT SHOULDER PAIN PERSISTS. SCHEDULED MORPHINE AND PRN OXYCODONE ARE GIVEN WITH GOOD EFFECT. PATIENT REPORTS IMPROVED SLEEP THIS NIGHT. COLOSTOMY HAS NOT HAD ANY OUTPUT, BOWEL SOUNDS ARE PRESENT BUT HYPOACTIVE. WEN IS PATENT FOE A CLOUDY PALE YELLOW URINE WITH LARG AMOUNTS OF SEDIMENT.
[2021-10-23] MEDS ORDERED: DOCU100 PO (10:12)
[2021-10-23] MEDS ORDERED: MIRALAX17 GM PO (10:12)
[2021-10-23] MEDS ORDERED: CEFD300 PO (10:12)
[2021-10-23] MEDS ORDERED: NITR100CA PO (10:13)
[2021-10-23] MEDS ORDERED: Diflucan100 MG PO (10:13)
--- NOTE | 2021-10-23 10:56 | NUR ---
CALLED DR LIN- PLAN WAS FOR PT TO DISCHARGE HOME TODAY. PT AND HIS SPOUSE HAVE BOTH EXPRESSED GREAT CONCERN THAT HE HAS NOT HAD ANY OUTPUT IN HIS COLOSTOMY FOR THE PAST [address] LIN AND SPOKE TO HER, PT WOULD LIKE TO REMAIN UNTIL HE HAS A BM. PER DR LIN OK TO HOLD DISCHARGE UNTIL THE PT IS ABLE TO HAVE A BM, MIRILAX INCREASED TO TWICE DAILY.
--- NOTE | 2021-10-23 18:34 | NUR ---
SHIFT SUMMARY- WOUND DRESSINGS CHANGED AT THE END OF THE SHIFT. COMPARED TO PREVIOUS THEY SEEM TO BE A LITTLE IMPROVED. DRESSINGS IN PLACE C/D/I AT THIS TIME. PT ALERT AND ORIENTED, CALL LIGHT IN REACH. PLAN WAS FOR PT TO DC HOME TODAY HOWEVER HE HAS NOT HAD ANY OUTPUT IN HIS OSTOMY FOR THE PAST THREE DAYS. PT AND HIS SPOUSE EXPRESSED CONCERN. SPOKE TO DR LIN WHO ORDERED A HOLD ON DISCHARGE UNTIL THE PT PRODUCES A STOOL. DAILY MIRALAX INCREASED TO BID REGLAN TID ADDED. PT HAS STILL HAD NO OUTPUT TODAY. BT PRESENT BUT HYPOACTIVE. PT DENIES ANY NAUSEA, HE DID PASS ONE BIT OF GAS THROUGH THE STOMA, OTHERWISE NO OUTPUT. PT IN BED WITH NO S&S OF DISTRESS AT THIS TIME WILL CTM AND PASS ON TO NIGHT RN IN BEDSIDE REPORT.
--- NOTE | 2021-10-23 19:30 | NUR ---
RECEIVED BEDSIDE REPORT FROM DAYSHIFT RN. NO NEEDS AT THIS TIME. CALL LT IN REACH.
--- NOTE | 2021-10-23 21:00 | NUR ---
PLEASANT AND COOPERATIVE. TOOK MEDS WHOLE WITH WATER. ON 3L 02 PT'S BASELINE. NO OTHER NEEDS AT THIS TIME. CALL LT IN REACH.
--- NOTE | 2021-10-23 23:00 | NUR ---
PT AWAKE. NO NEEDS AT THIS TIME. CALL LT IN REACH.
--- NOTE | 2021-10-23 23:30 | NUR ---
PRN PAIN MED GIVEN AND STEPHEN ABX. NO OTHER NEEDS. CALL LT IN REACH.
--- NOTE | 2021-10-24 00:14 | NUR ---
PT RESTING QUIETLY. 97% CONT BIOX ON 3L. CALL LT IN REACH.
--- NOTE | 2021-10-24 02:00 | NUR ---
PT CONTINUES TO REST QUIETLY. CALL LT IN REACH.
--- NOTE | 2021-10-24 03:30 | NUR ---
PRN PAIN MED GIVEN. NO OTHER NEEDS. CALL LT IN REACH.
--- NOTE | 2021-10-24 03:32 | NUR ---
SHIFT SUMMARY: A/O. PLEASANT AND COOPERATIVE WITH CARE. USES CALL LT APPROPRIATELY. MEDS WHOLE WITH WATER. BASELINE 3L 02. SR AT 72 WITH BBB ON TELE. CHRONIC WEN IN PLACE. NO STOOL PER OSTOMY. STATES A LITTLE BIT OF GAS BUT NO STOOL. BT'S HYPOACTIVE. NO NAUSEA. BOWEL CARE GIVEN. ON A BARIATRIC AIR BED. DRSG'S TO WOUNDS INTACT. RCW MEDIPORT TK0. PRN PAIN MED GIVEN X2 FOR R SHOULDER PAIN. NO ACUTE CHANGES. WILL CONTINUE TO PROVIDE CARE UNTIL SHIFT REPORT.
--- NOTE | 2021-10-24 04:25 | NUR ---
PT RESTING QUIETLY. CALL LT IN REACH.
--- NOTE | 2021-10-24 05:57 | NUR ---
MEDIPORT BLOOD DRAW DONE. NEW CAP PLACED. PT RESTING QUIETLY. NO NEEDS AT THIS TIME. CALL LT IN REACH.
[2021-10-24 06:16] LABS: Hematocrit 31.7 % (37.0-53.0); Hemoglobin 9.3 g/dL (13.5-17.5); Mean Corpuscular HGB 25.7 pg (26.0-34.0); Mean Corpuscular HGB Conc 29.3 g/dL (31.5-36.5); Mean Corpuscular Volume 88 fL (80-100); Mean Platelet Volume 8.8 fL (9.1-12.4); Platelet Count 351 K/mm3 (150-400); RDW Coefficient Variation 15.7 % (11.7-14.2); Red Blood Cell Count 3.62 M/mm3 (4.30-5.90)
[2021-10-24 06:25] LABS: Albumin, Blood 2.4 g/dL (3.4-5.0); Albumin/Globulin Ratio 0.6 (0.8-1.8); Bilirubin, Total 0.1 mg/dL (0.1-1.0); Bun/Creatinine Ratio 24.8 (12.0-20.0); Calcium, Blood 8.2 mg/dL (8.5-10.1); Creatinine, Blood 1.05 mg/dL (0.60-1.20); Potassium, Blood 4.6 mmol/L (3.5-5.5); Total Protein, Blood 6.4 g/dL (6.4-8.2)
--- NOTE | 2021-10-24 16:44 | NUR ---
SHIFT SUMMARY PATIENT IS ALERT AND ORIENTED. PATIENT IS A LIFT PATIENT. PATIENT HAS HAD NO ACUTE EVENTS THIS SHIFT. VITAL SIGNS REVIEWED. PATIENT HAS NOT COMPLAINED OF NAUSEA, VOMITTING OR SOB THIS SHIFT. PATIENT COMPLAINS OF CONSTIPATION, PATIENT HAS HAD INCREASED BOWEL CARE MEDICATIONS. NO BOWEL MOVEMENT THIS SHIFT. PATIENT HAS REPORTED PAIN AND MEDICATED PER EMAR. BED IN LOWEST AND LOCKED POSITION. CALL LIGHT IN PLACE. WILL MONITOR UNTIL SHIFT CHANGE.
[2021-10-25 05:25] LABS: Hematocrit 31.6 % (37.0-53.0); Hemoglobin 9.4 g/dL (13.5-17.5); Mean Corpuscular HGB Conc 29.7 g/dL (31.5-36.5); Mean Corpuscular Volume 87 fL (80-100); Platelet Count 347 K/mm3 (150-400); RDW Coefficient Variation 15.7 % (11.7-14.2); RDW Standard Deviation 50.3 fL (35.1-46.3); Red Blood Cell Count 3.62 M/mm3 (4.30-5.90); White Blood Cell Count 9.22 K/mm3 (4.00-11.30)
--- NOTE | 2021-10-25 05:28 | NUR ---
REAL ESTATE DEVELOPER SUMMARY ADMITTED FOR SEPSIS. PT IS FULL CODE. HE HAS A HISTORY OF PARAPLEGIA BUT IS VERY INDEPENDENT WITH REPOSITIONING. COLOSTOMY TO THE LUQ STILL HAS NO OUTPUT. PT ABDOMEN IS VERY DISTENDED - THOUGH HE STATES NO MORE THAN USUAL. ALERT AND ORIENTED X4. PLEASANT. MEDICATED X2 FOR PAIN AND REQUESTING ONE MORE BEFORE THE END OF SHIFT. DRESSING CHANGE TO COCCYX WAS COMPLETED BY PT'S YESTERDAY - DRESSING C/D/I. PT IS LIFT ASSIST TO CHAIR - WC AT BASELINE. MEDIPORT RUNNING NS AT TKO. NO ACUTE EVENTS THIS SHIFT.
[2021-10-25 05:50] LABS: Albumin, Blood 2.5 g/dL (3.4-5.0); Albumin/Globulin Ratio 0.6 (0.8-1.8); Bilirubin, Total 0.2 mg/dL (0.1-1.0); Bun/Creatinine Ratio 30.9 (12.0-20.0); Calcium, Blood 8.5 mg/dL (8.5-10.1); Creatinine, Blood 0.91 mg/dL (0.60-1.20); Globulin, Blood 3.9 g/dL (2.2-4.0); Potassium, Blood 4.4 mmol/L (3.5-5.5); Total Protein, Blood 6.4 g/dL (6.4-8.2)
--- NOTE | 2021-10-25 13:32 | NUR ---
DISCHARGE SUMMARY PATIENT IS ALERT AND ORIENTED. PATIENT HAS NOT HAD ANY ACUTE EVENTS THIS SHIFT. VITAL SIGNS REVIEWED. PATIENTS MEDIPORT WAS DEACCESSED ACCORDING TO POLICY. PATIENT IS BEING DISCHARGED HOME. PATIENT WAS MOVED FROM BED TO PERSONAL WHEELCHAIR. PATIENTS FRIEND DROVE PATIENT HOME IN PATIENTS WHEELCHAIR VAN.
== END 2021-10-25 13:16 | disposition home health service (06) | DRG 698 ==
LOC: ER 17:41 → ERHOLD 10-18 00:46 → MEDS 10-18 00:46
PROVIDERS: Emergency Medicine; Internal Medicine; Physician Assistant; ADMIT Family Medicine
DX: T83.511A Infection and inflammatory reaction due to indwelling urethral catheter, initial encounter (principal); B37.7 Candidal sepsis; L89.204 Pressure ulcer of unspecified hip, stage 4; L89.104 Pressure ulcer of unspecified part of back, stage 4; R65.20 Severe sepsis without septic shock; N17.9 Acute kidney failure, unspecified; J96.11 Chronic respiratory failure with hypoxia; G82.20 Paraplegia, unspecified; R44.3 Hallucinations, unspecified; Z16.12 Extended spectrum beta lactamase (ESBL) resistance; N39.0 Urinary tract infection, site not specified; F11.10 Opioid abuse, uncomplicated; K59.00 Constipation, unspecified; E66.01 Morbid (severe) obesity due to excess calories; G47.33 Obstructive sleep apnea (adult) (pediatric); L89.159 Pressure ulcer of sacral region, unspecified stage; D64.9 Anemia, unspecified; E86.9 Volume depletion, unspecified; B96.1 Klebsiella pneumoniae [K. pneumoniae] as the cause of diseases classified elsewhere; Z20.822 Contact with and (suspected) exposure to COVID-19; E11.69 Type 2 diabetes mellitus with other specified complication; J45.909 Unspecified asthma, uncomplicated; G89.4 Chronic pain syndrome; N31.9 Neuromuscular dysfunction of bladder, unspecified; E87.5 Hyperkalemia; D75.839 Thrombocytosis, unspecified; F17.210 Nicotine dependence, cigarettes, uncomplicated; Z88.1 Allergy status to other antibiotic agents; Z88.2 Allergy status to sulfonamides; Z93.3 Colostomy status; Z88.8 Allergy status to other drugs, medicaments and biological substances; Z79.899 Other long term (current) drug therapy; Z87.828 Personal history of other (healed) physical injury and trauma; Z87.39 Personal history of other diseases of the musculoskeletal system and connective tissue; Z68.38 Body mass index [BMI] 38.0-38.9, adult; Z89.612 Acquired absence of left leg above knee; Z98.890 Other specified postprocedural states; Z79.891 Long term (current) use of opiate analgesic; Z99.81 Dependence on supplemental oxygen; Z95.828 Presence of other vascular implants and grafts; Z79.4 Long term (current) use of insulin; Z79.01 Long term (current) use of anticoagulants; Z99.3 Dependence on wheelchair
CPT/HCPCS: 0241U; 36415; 71045; 74018; 80048; 80053; 80069; 81001; 82728; 82947; 83540; 83550; 83605; 83735; 85025; 85027; 87040; 87070; 87075; 87077; 87086; 87186; 87205; 93005; 93010; 94762; 96374; 96375; 99285-25; A9270; J0696; J1642; J1650; J1815; J2185; J2405; J3010; J7030

== ENCOUNTER 2021-11-04 13:20 | Day surgery (SDC) | payer MEDICARE, BC ==
[~2021-11-04 13:20] MED LIST changes: +CENTRUM SILVER1 EAC2 PO; +DOCU100 PO; +Diflucan100 MG PO; +METAMUCIL POWD798 GM PO; +MIRALAX17 GM PO; +QUERCETIN DIHYDR1 GM PO; +VITAMIN D31000 UNI1 PO; +ZANAFLEX PO
== END 2021-11-04 13:52 | disposition home or self-care (01) ==
LOC: ATC 13:20
DX: T83.518A Infection and inflammatory reaction due to other urinary catheter, initial encounter (principal); N39.0 Urinary tract infection, site not specified; E78.2 Mixed hyperlipidemia; I10 Essential (primary) hypertension; E11.9 Type 2 diabetes mellitus without complications; G47.33 Obstructive sleep apnea (adult) (pediatric); J45.909 Unspecified asthma, uncomplicated; G82.20 Paraplegia, unspecified; Z88.1 Allergy status to other antibiotic agents; Z88.8 Allergy status to other drugs, medicaments and biological substances; Z79.4 Long term (current) use of insulin; Z79.899 Other long term (current) drug therapy
CPT/HCPCS: 96365; J1335; J1642

== ENCOUNTER 2021-11-05 13:13 | Day surgery (SDC) | payer MEDICARE, BC | END 2021-11-05 13:41 | disposition home or self-care (01) | LOC: ATC 13:13 | DX: L89.90 Pressure ulcer of unspecified site, unspecified stage (principal); D64.9 Anemia, unspecified; R53.83 Other fatigue; E78.2 Mixed hyperlipidemia; I10 Essential (primary) hypertension; E11.9 Type 2 diabetes mellitus without complications; Z79.4 Long term (current) use of insulin | CPT/HCPCS: 96365; J1335; J1642 ==

== ENCOUNTER 2021-11-06 00:34 | Day surgery (SDC) | payer MEDICARE, BC | END 2021-11-06 14:30 | disposition home or self-care (01) | LOC: ATC 00:34 | DX: L89.90 Pressure ulcer of unspecified site, unspecified stage (principal); E11.9 Type 2 diabetes mellitus without complications | CPT/HCPCS: 96365; J1335; J1642 ==

== ENCOUNTER 2021-11-07 01:43 | Day surgery (SDC) | payer MEDICARE, BC | END 2021-11-07 11:26 | disposition home or self-care (01) | LOC: ATC 01:43 | DX: L89.90 Pressure ulcer of unspecified site, unspecified stage (principal); D64.9 Anemia, unspecified; R53.83 Other fatigue; I10 Essential (primary) hypertension; E11.9 Type 2 diabetes mellitus without complications; Z79.4 Long term (current) use of insulin | CPT/HCPCS: 96365; J1335; J1642 ==

== ENCOUNTER 2021-11-08 07:34 | Day surgery (SDC) | payer MEDICARE, BC | END 2021-11-08 13:47 | disposition home or self-care (01) | LOC: ATC 07:34 | DX: L89.90 Pressure ulcer of unspecified site, unspecified stage (principal); A41.9 Sepsis, unspecified organism; N39.0 Urinary tract infection, site not specified; E11.9 Type 2 diabetes mellitus without complications; J45.909 Unspecified asthma, uncomplicated; Z89.612 Acquired absence of left leg above knee; Z82.2 Family history of deafness and hearing loss; Z79.4 Long term (current) use of insulin; Z88.1 Allergy status to other antibiotic agents; G82.20 Paraplegia, unspecified; G47.33 Obstructive sleep apnea (adult) (pediatric); Z86.718 Personal history of other venous thrombosis and embolism; Z79.01 Long term (current) use of anticoagulants | CPT/HCPCS: 96365; J1335; J1642 ==

== ENCOUNTER 2021-11-10 00:06 | Day surgery (SDC) | payer MEDICARE, BC | END 2021-11-10 14:01 | disposition home or self-care (01) | LOC: ATC 00:06 | DX: L89.90 Pressure ulcer of unspecified site, unspecified stage (principal); E11.9 Type 2 diabetes mellitus without complications; J45.909 Unspecified asthma, uncomplicated; Z89.612 Acquired absence of left leg above knee; Z88.2 Allergy status to sulfonamides; Z88.1 Allergy status to other antibiotic agents; Z79.4 Long term (current) use of insulin; G82.20 Paraplegia, unspecified; G47.33 Obstructive sleep apnea (adult) (pediatric); Z86.718 Personal history of other venous thrombosis and embolism; Z79.01 Long term (current) use of anticoagulants | CPT/HCPCS: 96365; J1335; J1642 ==

== ENCOUNTER 2021-11-11 13:09 | Day surgery (SDC) | payer MEDICARE, BC | END 2021-11-11 13:51 | disposition home or self-care (01) | LOC: ATC 13:09 | DX: L89.90 Pressure ulcer of unspecified site, unspecified stage (principal); E11.9 Type 2 diabetes mellitus without complications; J45.909 Unspecified asthma, uncomplicated; Z89.612 Acquired absence of left leg above knee; Z88.2 Allergy status to sulfonamides; Z88.1 Allergy status to other antibiotic agents; Z79.4 Long term (current) use of insulin; G82.20 Paraplegia, unspecified; G47.33 Obstructive sleep apnea (adult) (pediatric); Z86.718 Personal history of other venous thrombosis and embolism; Z79.01 Long term (current) use of anticoagulants | CPT/HCPCS: 96374; J1335; J1642 ==

== ENCOUNTER 2021-11-12 12:59 | Day surgery (SDC) | payer MEDICARE, BC | END 2021-11-12 13:33 | disposition home or self-care (01) | LOC: ATC 12:59 | DX: L89.90 Pressure ulcer of unspecified site, unspecified stage (principal); E11.9 Type 2 diabetes mellitus without complications; J45.909 Unspecified asthma, uncomplicated; Z89.612 Acquired absence of left leg above knee; Z88.2 Allergy status to sulfonamides; Z88.1 Allergy status to other antibiotic agents; Z79.4 Long term (current) use of insulin; G82.20 Paraplegia, unspecified; G47.33 Obstructive sleep apnea (adult) (pediatric); Z86.718 Personal history of other venous thrombosis and embolism; Z79.01 Long term (current) use of anticoagulants | CPT/HCPCS: 96374; J1335; J1642 ==

== ENCOUNTER 2021-11-13 02:27 | Day surgery (SDC) | payer MEDICARE, BC | END 2021-11-13 14:05 | disposition home or self-care (01) | LOC: ATC 02:27 | DX: L89.90 Pressure ulcer of unspecified site, unspecified stage (principal); E11.9 Type 2 diabetes mellitus without complications; J45.909 Unspecified asthma, uncomplicated; Z89.612 Acquired absence of left leg above knee; Z88.2 Allergy status to sulfonamides; Z88.1 Allergy status to other antibiotic agents; Z79.4 Long term (current) use of insulin; G82.20 Paraplegia, unspecified; G47.33 Obstructive sleep apnea (adult) (pediatric); Z86.718 Personal history of other venous thrombosis and embolism; Z79.01 Long term (current) use of anticoagulants | CPT/HCPCS: 96365; J1335; J1642 ==

== ENCOUNTER → 2021-11-28 | Outpatient (CLI) | payer MEDICARE, BC ==
[~2021-11-28] MED LIST changes: +CRANBERRY450 M1 PO; +OXCA150 PO; +OXYC30ER PO; +THERA-D2000 UNIT PO
[2021-11-28 16:48] LABS: Source, Urine Foley catheter
[2021-11-28 17:50] LABS: Appearance, Urine Hazy (Clear); Bilirubin, Urine Neg (Neg); Blood, Urine 3+ (Neg); Color, Urine Yellow (P-Yellow); Glucose Qualitative, Urine Neg (Neg); Ketones, Urine Neg (Neg); Leukocyte Esterase, Urine 3+ (Neg); Nitrite, Urine Neg (Neg); Protein, Urine 2+ (Neg); Urobilinogen, Urine NORM (Normal)
[2021-11-28 18:04] LABS: Bacteria Mod /hpf; Squamous Epithelial Cells Few /hpf (Few); Transitional Epithelial Cells Rare /hpf (0-Rare); White Blood Cells, Urine 50-100 /hpf (0-5)
[2021-11-28 18:05] LABS: Hyaline Casts 0-2 /lpf (0-2)
== END | disposition home or self-care (01) ==
LOC: LAB SHORT 12:30 → LAB 12:30
PROVIDERS: Urology
DX: N39.0 Urinary tract infection, site not specified (principal)
CPT/HCPCS: 81001; 87086

== ENCOUNTER 2021-12-18 09:43 | Inpatient (IN) | payer MEDICARE, BC ==
[~2021-12-18] VITALS: Ht 190.5 cm; Wt 147.0 kg
[~2021-12-18 09:43] MED LIST changes: -CRANBERRY450 M1 PO; -OXCA150 PO; -OXYC30ER PO; -THERA-D2000 UNIT PO
[2021-12-18 10:33] LABS: BASOPHILS ABSOLUTE AUTO 0.06 K/mm3 (0.00-0.23); BASOPHILS PERCENT AUTO 0 % (0-2); EOSINOPHILS ABSOLUTE AUTO 0.04 K/mm3 (0.00-0.68); EOSINOPHILS PERCENT AUTO 0 % (0-6); Hematocrit 33.4 % (37.0-53.0); Hemoglobin 9.9 g/dL (13.5-17.5); IMMATURE GRAN PERCENT AUTO 1 % (0-1); LYMPHOCYTES PERCENT AUTO 4 % (21-46); MONOCYTES ABSOLUTE AUTO 1.62 K/mm3 (0.16-1.47); MONOCYTES PERCENT AUTO 7 % (4-13); Mean Corpuscular HGB 26.6 pg (26.0-34.0); Mean Corpuscular HGB Conc 29.6 g/dL (31.5-36.5); Mean Corpuscular Volume 90 fL (80-100); Mean Platelet Volume 9.6 fL (9.1-12.4); NEUTROPHILS ABSOLUTE AUTO 22.14 K/mm3 (1.96-9.15); NEUTROPHILS PERCENT AUTO 88 % (41-73); Platelet Count 353 K/mm3 (150-400); RDW Coefficient Variation 15.9 % (11.7-14.2); RDW Standard Deviation 52.4 fL (35.1-46.3); Red Blood Cell Count 3.72 M/mm3 (4.30-5.90); White Blood Cell Count 25.06 K/mm3 (4.00-11.30)
[2021-12-18 11:06] LABS: Albumin, Blood 2.5 g/dL (3.4-5.0); Albumin/Globulin Ratio 0.6 (0.8-1.8); Bilirubin, Total 0.4 mg/dL (0.1-1.0); Bun/Creatinine Ratio 29.5 (12.0-20.0); Calcium, Blood 8.3 mg/dL (8.5-10.1); Creatinine, Blood 2.37 mg/dL (0.60-1.20); Globulin, Blood 4.3 g/dL (2.2-4.0); Total Protein, Blood 6.8 g/dL (6.4-8.2)
[2021-12-18 11:08] LABS: Potassium, Blood 6.3 mmol/L (3.5-5.5)
[2021-12-18 13:02] LABS: Source, Urine Clean Catch
[2021-12-18 13:10] LABS: Appearance, Urine Cloudy (Clear); Bilirubin, Urine Neg (Neg); Blood, Urine 5+ (Neg); Color, Urine Yellow (P-Yellow); Glucose Qualitative, Urine Neg (Neg); Ketones, Urine Neg (Neg); Leukocyte Esterase, Urine 3+ (Neg); Nitrite, Urine Pos (Neg); Protein, Urine 4+ (Neg); Urobilinogen, Urine NORM (Normal)
[2021-12-18 13:18] LABS: Bacteria Mod /hpf; Red Blood Cells, Urine 50-100 /hpf (0-2); Squamous Epithelial Cells Few /hpf (Few); White Blood Cells, Urine TNTC /hpf (0-5)
[2021-12-18] MEDS ORDERED: BACL10 PO (15:04)
[2021-12-18] MEDS ORDERED: MONUROL3 GM PO ×2 (15:12→16:51)
[2021-12-18] MEDS ORDERED: MYRBETRIQ25 MG PO (15:13)
[2021-12-18] MEDS ORDERED: OXCA150 PO (15:13)
[2021-12-18] MEDS ORDERED: POTA10T PO (15:14)
[2021-12-18] MEDS ORDERED: OXYC30ER PO (15:14)
[2021-12-18] MEDS ORDERED: TRIM100 PO (15:14)
[2021-12-18] MEDS ORDERED: THERA-D2000 UNIT PO (15:15)
[2021-12-18] MEDS ORDERED: CELE100 PO (16:41)
[2021-12-18] MEDS ORDERED: CRANBERRY450 M1 PO (16:45)
[2021-12-18 17:47] LABS: Source, Urine Foley catheter
[2021-12-18 18:03] LABS: Appearance, Urine Cloudy (Clear); Bilirubin, Urine Neg (Neg); Blood, Urine 5+ (Neg); Color, Urine Yellow (P-Yellow); Glucose Qualitative, Urine Neg (Neg); Ketones, Urine Neg (Neg); Leukocyte Esterase, Urine 3+ (Neg); Nitrite, Urine Pos (Neg); Protein, Urine 3+ (Neg); Specific Gravity, Urine 1.015 (1.003-1.022); Urobilinogen, Urine NORM (Normal)
[2021-12-18 18:16] LABS: Bacteria Many /hpf; Red Blood Cells, Urine 25-50 /hpf (0-2); Squamous Epithelial Cells Rare /hpf (Few); White Blood Cells, Urine TNTC /hpf (0-5)
[2021-12-18 18:17] LABS: Hyaline Casts 0-2 /lpf (0-2); WBC Cast 0-2 /lpf (0)
[2021-12-19 00:12] LABS: Bun/Creatinine Ratio 28.9 (12.0-20.0); Calcium, Blood 8.2 mg/dL (8.5-10.1); Creatinine, Blood 2.53 mg/dL (0.60-1.20)
--- NOTE | 2021-12-19 00:56 | NUR ---
UPDATE PT SINUS TACH 110-130's, SUSTAINING IN 130's FOR APPROXIMATELY 30 MINUTES. DENIES CP/PRESSURE. CALL TO PHYSICIAN AT APPROXIMATELY 2300, ORDERS RECIEVED FOR IV LOPRESSOR.
--- NOTE | 2021-12-19 00:58 | NUR ---
UPDATE CRITICAL POTASSIUM OF 6.0, PT ASYMTOMATIC. CALL TO UPDATE PHYSICIAN, ORDERS RECIEVED FOR INSULIN AND CALCIUM GLUCONATE.
[2021-12-19 04:57] LABS: Hematocrit 27.5 % (37.0-53.0); Hemoglobin 8.4 g/dL (13.5-17.5); Mean Corpuscular HGB 27.5 pg (26.0-34.0); Mean Corpuscular HGB Conc 30.5 g/dL (31.5-36.5); Mean Corpuscular Volume 90 fL (80-100); Platelet Count 306 K/mm3 (150-400); RDW Coefficient Variation 15.9 % (11.7-14.2); RDW Standard Deviation 53.1 fL (35.1-46.3); Red Blood Cell Count 3.05 M/mm3 (4.30-5.90); White Blood Cell Count 18.09 K/mm3 (4.00-11.30)
[2021-12-19 05:03] LABS: Anion Gap 7 mmol/L (6-16); Blood Urea Nitrogen 73 mg/dL (8-24); Bun/Creatinine Ratio 28.9 (12.0-20.0); CO2, Blood 27 mmol/L (21-32); Calcium, Blood 8.4 mg/dL (8.5-10.1); Chloride, Blood 107 mmol/L (98-108); Creatinine, Blood 2.53 mg/dL (0.60-1.20); Glomerular Filtration Rate 27 (60-); Glucose, Blood 190 mg/dL (70-99); Magnesium, Blood 2.4 mg/dL (1.6-2.4); Phosphorus, Blood 4.7 mg/dL (2.5-4.9); Potassium, Blood 5.8 mmol/L (3.5-5.5); Sodium, Blood 141 mmol/L (136-145)
--- NOTE | 2021-12-19 05:31 | NUR ---
SHIFT SUMMARY RECIEVED REPORT THAT PT WAS LETHARGIC, BUT AROUSABLE. PT WAS A&O AT START OF SHIFT, THE SHIFT PROGRESSED PT BECAME MORE LETHARGIC. PT REMAINED AROUSABLE, WHEN WOKEN UP, PT STATED THAT HE WAS VERY SLEEPY. BP STABLE DENIES CP/PRESSURE, SpO2> 92% ON BASELINE 3L AND CPAP, DENIES SOB. SR-ST 80-130's, SEE PREVIOUS NOTE. CHRONIC WEN CATHETER IN PLACE, PATENT AND DRAINING TO GRAVITY. PT's PAIN MANAGED PER PRN PAIN MEDS IN EMAR. NO OTHER EVENTS THIS SHIFT, SEE PREVIOUS NOTES. WILL REPORT TO DAY SHIFT RN.
--- NOTE | 2021-12-19 05:54 | NUR ---
UPDATE CALL TO UPDATE PHYSICIAN ABOUT POTASSIUM OF 5.8 AND MENTIONED THAT Hgb DROPPED FROM 9.9 TO 8.4. NO ORDERS AT THIS TIME
--- NOTE | 2021-12-19 08:15 | NUR ---
AM ASSESSMENT: Pt sitting up in bed just finished being fed breakfast. States that he is having problems with pain in his arms, 10/04. States this is chronic pain but worse then usual. States he feelis like he can't even lift his arms. Hand grasps very weak. LS diminished with crackles. Wet cough. Pt states that this is new since eating breakfast. On 3L per NC (home dose) with biox 94%. Encouraged to cough and deep breath. HR tachycardic. Bt positive. OStomy with formed, brown stool. RLE with pulse palp. Moreno cath draining cloudy, yellow urine with sediment noted. LOw grade temp at 99.8. Will continue to monitor and treat. NS running per orders. 2 large wounds noted, one on R buttock/hip and the other on the L buttock. Cleaned with skintegrtey and mepalex dressing placed. Wound care consulted. R ankle wound cleaned and mepalex placed. Call light in reach. Will continue to monitor.
[2021-12-19 11:37] LABS: Bun/Creatinine Ratio 30.2 (12.0-20.0); Calcium, Blood 8.3 mg/dL (8.5-10.1); Creatinine, Blood 2.35 mg/dL (0.60-1.20); Potassium, Blood 5.1 mmol/L (3.5-5.5)
--- NOTE | 2021-12-19 17:02 | NUR ---
SHIFT SUMMARY: Pt dozing at this time. Appears comfortable but has low grade temp of 100.7 at this time. Was given tylenol. Pt has seemed to make slight improvements this shift. This AM Pt was very painful, had a wet cough, and a low grade temp throughout the shift. Cough has improved and LS now have less crackles. Pt was started on oxycodone and pain has improved, has been able to sleep. Slight improvement in lab values. Moreno cath was leaking so changed to an 18g with 30ml balloon. Pt tolerated well. Wounds were cleaned with skentegrety and dressed with mepalex. No other changes this shift. Will move to room PCU 18. Will report to night RN. Stable at this time.
--- NOTE | 2021-12-20 00:05 | NUR ---
UPDATE PT'S ORAL TEMP HAD BEEN SLOWLY CLIMBING OVER THE COURSE OF A FEW HOURS EVEN AFTER RECEIVING TYLENOL. PT'S TEMP GOT TO 102.7, COOLING THERPAY WITH ICE PACKS INITIATED UNDER BOTH ARMPITS, GROIN, AND NECK. PT RESPONDED WELL TO TREATMENT FOR HIS TEMP HAS SLOWLY COME BACK DOWN. NOTIFIED, CADY LAWS
[2021-12-20 04:32] LABS: BASOPHILS ABSOLUTE AUTO 0.04 K/mm3 (0.00-0.23); BASOPHILS PERCENT AUTO 1 % (0-2); EOSINOPHILS ABSOLUTE AUTO 0.01 K/mm3 (0.00-0.68); EOSINOPHILS PERCENT AUTO 0 % (0-6); Hemoglobin 8.7 g/dL (13.5-17.5); IMMATURE GRAN ABSOLUTE AUTO 0.08 K/mm3 (0.00-0.10); IMMATURE GRAN PERCENT AUTO 1 % (0-1); LYMPHOCYTES ABSOLUTE AUTO 0.56 K/mm3 (0.84-5.20); LYMPHOCYTES PERCENT AUTO 7 % (21-46); MONOCYTES ABSOLUTE AUTO 0.31 K/mm3 (0.16-1.47); MONOCYTES PERCENT AUTO 4 % (4-13); Mean Corpuscular HGB 27.4 pg (26.0-34.0); Mean Corpuscular Volume 91 fL (80-100); Mean Platelet Volume 9.6 fL (9.1-12.4); NEUTROPHILS ABSOLUTE AUTO 7.62 K/mm3 (1.96-9.15); NEUTROPHILS PERCENT AUTO 88 % (41-73); Platelet Count 288 K/mm3 (150-400); RDW Coefficient Variation 15.8 % (11.7-14.2); RDW Standard Deviation 52.6 fL (35.1-46.3); Red Blood Cell Count 3.18 M/mm3 (4.30-5.90); White Blood Cell Count 8.62 K/mm3 (4.00-11.30)
[2021-12-20 04:56] LABS: Bun/Creatinine Ratio 32.2 (12.0-20.0); Calcium, Blood 8.4 mg/dL (8.5-10.1); Creatinine, Blood 2.14 mg/dL (0.60-1.20); Potassium, Blood 5.2 mmol/L (3.5-5.5)
--- NOTE | 2021-12-20 05:45 | NUR ---
SHIFT SUMMARY PT'S MENTATION HAS WAXED AND WANES T/O THE SHIFT FROM BEING LETHARGIC TO ALERT. PT SPIKED A FEVER ABOUT MIDWAY THROUGH THE SHIFT TO ABOUT 102.7F. PT GIVEN TYLENOL PER EMAR AND RECEIVED PLACEMNT OF ICE PACKS AROUND HIS CORE. PT RESPONDED WELL TO TREATMENT AND HIS FEVER HAS SINCE COME DOWN. PT HAS CHRONIC WEN THAT IS PATENT/DRAINS TO GRAVITY, BUT CATH LEAKS AROUND INSERTION SITE. MEPILEX'S IN PLACE OVER PRESSURE ULCERS AND HAVE BEEN CHANGED WITH EACH REPOSITION. OSTOMY PATIENT AND PRODUCING BROWN/GREEN FORMED STOOL. PT MAINTAINED SPO2 >95 ON 3L VIA NC WITH NO SOB NOTED. PRESSURES GREW SOFT WHEN PT WAS FEBRILE, BUT HAVE SINCE RECOVERED AND HAS BEEN STABLE. NADN, VSS T/O THE SHIFT
--- NOTE | 2021-12-20 10:22 | NUR ---
At change of shift, the pt began to have shaking in his upper extremities, c/o headache 6/10, and stated he felt chilled. Oral temperature was 98.6, less than that measured temporally. Medicated for pain, tremors, and it resolved within 45 mintues. Pt at this time is drowsy, states that he is having a hard time staying awake, but reports that his pain is relived at a 2/10 a this time. Pt was repositioned and saturated pads underneath him were removed. The urine is leaking from around the min insertion site. Turned to his right side. Urine specimen was sent as ordered.
--- NOTE | 2021-12-20 11:01 | NUR ---
Pt is asleep, is at the bedside. She was updated on the pt's condition.
--- NOTE | 2021-12-20 12:10 | NUR ---
Absorbent pad underneath his groin area was changed, as it was damp with urine. Pt was repositioned, and bed set to turn the patient automatically every 30 minutes. Siderails are up for safety during auto turn cycles. and daughter of patient are at the bedside. states that the patient has a bed at home which also does automatic turning, and that the pt uses a slide board to transfer himself from the bed to his wheelchair. States that he is normally able to drive, self transfer, and have a number of independent activities. At this time the pt is profoundly weak; this morning he was too weak to hold his own cup of water, nor to put his own pills into his mouth.
[2021-12-20 14:11] LABS: Bun/Creatinine Ratio 34.3 (12.0-20.0); Calcium, Blood 8.2 mg/dL (8.5-10.1); Creatinine, Blood 1.75 mg/dL (0.60-1.20)
--- NOTE | 2021-12-20 15:43 | NUR ---
The pt is having a LOT of leaking urine around the min catheter insertion site. The anatomy is ambiguous presumably due to atrophy s/p spinal cord injury and subsequent breakdown of skin and tissues in areas of frequent pressure. Min catheter appears to be inserted into skin fold above an area of scrotum and very small imbeded penile tissue. Purewick was placed over the min insertion site to prevent the continuous moisture in areas of wounds on the left gluteal fold and the right hip. Purewick is pulling urine faster than it is draining into the min collection bag at this time. Pt awakens easily to stimuli, but otherwise continues to sleep.
--- NOTE | 2021-12-20 17:08 | NUR ---
CBG 115. Pt more awake, states that he feels terrible, probably from low blood sugar. Given yogurt and applesauce and water. He ate all of it with a good appetite, 2 yogurts and applesauce cup. Oxycodone given at his specific request for shoulder pain, right side, rated by him 8/10.
--- NOTE | 2021-12-20 18:12 | NUR ---
Pt is more awake this evening and interactive, conversant than he has been today. All day he has c/o feeling "muddled" in his head. His conversation is normal, appropriate, but he seems to be exhausted. Ate dinner with good appetite but his arms are still so weak that he is not able to feed himself.
--- NOTE | 2021-12-21 05:46 | NUR ---
SHIFT SUMMARY PT LETHARGIC FOR MOST OF SHIFT; DOES NOT OPEN EYES SPONTANEOUSLY HOWEVER WILL BRIEFLY OPEN EYES TO VERBAL STIMULI. PT IS NOT ABLE TO KEEP EYES OPEN VERY LONG. PT FOLLOWING COMMANDS AND ABLE TO RESPOND TO MOST QUESTIONS APPROPRIATELY ALTHOUGH RESPONSES ARE SLOWED. VS; SBP IN 140'S, HR IN 90'S, 02 >94% ON NC. PT USED CPAP FOR SEVERAL HOURS THEN REQUESTED A BREAK, NC PLACED BACK ON PT AT 2L. PT BEGAN TO WAKE UP AROUND 0330 AND SEEMED MORE ALERT AND RESPONSIVE. PT ASKED ABOUT DATE AND TIME, ASKED FOR WATER AND STATED HE WAS NOT FEELING WELL. THIS RN AND PT HAD CONVERSATION ABOUT HUNTING SEASON AND PT WAS INTERACTING WELL. WEN IN PLACE AND DRAINING TO GRAVITY; CLEAR, YELLOW URINE. PUREWICK ALSO IN PLACE. PT HAS GOOD OUTPUT. SMALL AMOUNT OF BLEEDING NOTED ON PENIAL AREA WHERE CATHETER IS. CLEANED AND BARRIER CREAM APPLIED. COLOSTOMY IN PLACE; BROWN, SOFT FORMED STOOL X2. PT FEBRILE AT 101.1; MEDICATED PER EMAR AND TEMPERATURE DECREASED. PT DENIES SOB, CHEST PAIN OR PRESSURE. REPORTS CHRONIC PAIN; IN R ARM AND GENERALIZED PAIN. STATES "HE IS ALWAYS IN PAIN". PT REPOSTIONED AND BED SET AT INTERVALS TO CHANGES PRESSURE AND POSITION. CALL LIGHT IN REACH AND BED IN LOWEST POSITION.
[2021-12-21 06:23] LABS: BASOPHILS ABSOLUTE AUTO 0.02 K/mm3 (0.00-0.23); BASOPHILS PERCENT AUTO 1 % (0-2); EOSINOPHILS ABSOLUTE AUTO 0.03 K/mm3 (0.00-0.68); EOSINOPHILS PERCENT AUTO 1 % (0-6); Hematocrit 28.4 % (37.0-53.0); Hemoglobin 8.4 g/dL (13.5-17.5); IMMATURE GRAN ABSOLUTE AUTO 0.12 K/mm3 (0.00-0.10); IMMATURE GRAN PERCENT AUTO 3 % (0-1); LYMPHOCYTES ABSOLUTE AUTO 0.62 K/mm3 (0.84-5.20); LYMPHOCYTES PERCENT AUTO 16 % (21-46); MONOCYTES ABSOLUTE AUTO 0.22 K/mm3 (0.16-1.47); MONOCYTES PERCENT AUTO 6 % (4-13); Mean Corpuscular HGB 26.8 pg (26.0-34.0); Mean Corpuscular HGB Conc 29.6 g/dL (31.5-36.5); Mean Corpuscular Volume 90 fL (80-100); Mean Platelet Volume 9.4 fL (9.1-12.4); NEUTROPHILS ABSOLUTE AUTO 2.99 K/mm3 (1.96-9.15); NEUTROPHILS PERCENT AUTO 75 % (41-73); Platelet Count 271 K/mm3 (150-400); RDW Coefficient Variation 15.9 % (11.7-14.2); RDW Standard Deviation 53.2 fL (35.1-46.3); Red Blood Cell Count 3.14 M/mm3 (4.30-5.90)
[2021-12-21 06:42] LABS: Bun/Creatinine Ratio 34.1 (12.0-20.0); Calcium, Blood 7.9 mg/dL (8.5-10.1); Creatinine, Blood 1.29 mg/dL (0.60-1.20); Potassium, Blood 4.5 mmol/L (3.5-5.5)
--- NOTE | 2021-12-21 14:40 | NUR ---
Call to Dr. Harris regarding pt's pain relief. Pt is not lethargic this afternoon, making conversation, and sleeping once the oxycodone takes effect. will restart pt's home medication of gabapentin this afternoon.
--- NOTE | 2021-12-21 17:50 | NUR ---
Verified that periarea was dry and clean. Purewick continues to drain about 200 cc urine / hour, but cristobal scant amount of urine noted draining from the min catheter itself. Pt's anatomy is such that the min insertion site is unrecognizable in terms of genitalia, is very open, and appears to be primarily a large hole deep inside a sulcus. [facility] tells me that they were with a urologist in [place], and had been asking for a very long time for a suprapubic catheter, but they would not do it. She states that now they are seeing Dr. Iyer in [place] and hoping that a suprapubic catheter might be possible eventually. She had beentold that the pt's obesity prevented it from being possible. states that she is the one who changes the pt's min catheter at home on a regular basis. States that the pt has had these wounds "for years", except for the one on his right ankle, which they discovered had happened because of friction against his wheelchair recently.
--- NOTE | 2021-12-21 17:55 | NUR ---
Pt medicated for pain with oxycodone.
--- NOTE | 2021-12-22 05:29 | NUR ---
SHIFT SUMMARY PT LETHARGIC BUT AROUSABLE TO VERBAL STIMULI AND OPENS EYES. VSS. FOR 0000 VITALS, PT HAD ELEVATED SBP IN 180'S. RECHECKED AND STILL IN 180'S; PROVIDER NOTIFIED. NEW ORDERS TO DC FLUIDS AND RECHECK BP IN 30 MINS, IF STILL ELEVATED ADMINSITER HYDRALIZINE. AFTER 30 MINS, SBP STILL ELEVATED AT 188; 10 MG IV HYDRALIZINE ADMINTERED PER ORDER. BP RECHECKED LATER, STILL ELEVATED AT 186, PROVIDER NOTIFIED. NEW ORDER FOR ADDITIONAL 10MG IV HYDRALAZINE. UPON REASSESSMENT AND RECHECK OF BP BEFORE ADMINISTRATION, ADDITIONAL 10 MG NOT GIVEN DUE TO NEW BP OF 151/55. BED BATH COMPLETED, PUREWICK CHANGED AND COMPLETE LINEN CHANGE COMPLETED. WEN IN PLACE AND DRAINING. PT HAS GOOD INTAKE AND OUTPUT. DRESSINGS D/C/I. PT REPORTS GENERAL PAIN AND R SHOULDER/ARM PAIN THAT IS CHRONIC. MEDICATED PER EMAR. PT CURRENTLY RESTING AND CALL LIGHT IN REACH. ALTHOUGH PT IS NOT USING CALL LIGHT APPROPRIATELY, EDUCATION PROVIDED. PT HAS BEEN CALLING OUT WHEN HE NEEDS SOMETHING.
--- NOTE | 2021-12-22 15:48 | NUR ---
PT REFUSED EVENING BLOOD PRESSURE
--- NOTE | 2021-12-22 17:53 | NUR ---
SHIFT SUMMARY SCROTAL AND BUTTOCK WOUNDS REDRESSED AND PACKED WITH CALCIUM AGINATE THIS AM, WOUNDS DO APPEAR TO BE WELL TENDED TO DESPITE BEING QUITE EXTENSIVE. PT ALERT, HE IS ORIENTED X3 FOR MOST OF THE DAY, HE HAS MOMENTS OF SOME CONFUSION WHEN ARRIVED THIS AFTERNOON. PT DID REFUSE EVENING BLOOD PRESSURE. PT HAS REQUIRED INSULIN COVERAGE T/O THE DAY. PT'S PAIN HAS BEEN WELL CONTROLLED WITH ADDITION OF MS CONTIN WITH THE OXYCODONE, REPORTS CHRONIC PAIN TO RT SHOULDER. VSS.
--- NOTE | 2021-12-23 00:57 | NUR ---
UPDATE PT'S SBP HAS BEEN RANGING 150-190'S CONSISTANLY OVER THE LAST 3 NIGHTS. CALLED MD ABOUT RESTARTING PT HOME BP MEDICATIONS. PT'S METROPROL DOSE WAS INCREASED IN THE EMAR. PRN HYDRALAZINE GIVEN ORDERED PER EMAR TO MANAGE PT INCREASING BP'S.
--- NOTE | 2021-12-23 02:21 | NUR ---
UPDATE RETOOK PT'S BP AFTER ADMINISTERING PRN HYDRALAZINE ORDERED PER EMAR. PT BP WAS BEEN HOLDING IN THE 190'S TO LOW 200'S. ATTEMPTED TO CALL MD, LEFT VOICEMAIL. WILL WAIT FOR CALL BACK
--- NOTE | 2021-12-23 05:32 | NUR ---
SHIFT SUMMARY PT IS A/Ox3-4, BUT HIS MENTATION CAN WAX AND WANE T/O THE SHIFT. PT HAS EPISODES WHERE HE BECOMES LETHARGIC/TIRED. PT'S BP CLIMBED STEADILY TO THE 190'S/LOW 200'S. MD NOTIFIED AND PT'S HYPERTENSION MANGED ORDERED PER EMAR. FURTHERMORE, PT'S DOSE F METOPROLOL WAS ALSO INCREASED TO MATCH PT'S USUAL HOME DOSE. SBP HAS SINCE BEEN DECREASING TO EH 160'S SBP. PT HAS MAINTAINED SPO2 >95% ON 2L VIA NC WITH MINIMAL SOB NOTED WHEN PT LAYED SUPINE. PT'S WEN IN PLACE AND DRAINING CLOUDY YELLOW URINE TO GRAVITIY. WEN DOES LEAK AND SO A PUREWICK WAS PLACED TO CATCH ANY LEAKAGE. PT REPOSITIONED/CLEANED FREQUENTLY IN ORDER TO RELIEVE PRESSURE OFF OF HIS PRESSURE ULCERS. PT'S PAIN MANAGED PER EMAR. VSS, NADN T/O THE SHIFT
--- NOTE | 2021-12-23 09:21 | NUR ---
ASSUMPTION OF CARE: PATIENT THIS AM HAD SOME MILD CONFUSION THAT PASSED, AFTER BEING SAT UP, THIS CONCRETE LAYER OBSERVED PATIENT WHILE HE WAS SLEEPING AT A LOWER ANGLE OF SLEEP AND POSSIBILITY OF SEVERE HALLEY, PATIENT MENTATION CLEARED BACK TO HIS BASELINE WITHIN 15-25 MINUTES OF BEING SAT UP. WHILE PATIENTS' MENTATION WAS MINIMALLY ALTERED HE ENDORSED VISUAL HALLUCINATIONS THAT HE HIMSELF KNEW WERE NOT REAL. PATIENT WAS COMFORTED AND CALL TO PROVIDER WAS MADE NO NEW ORDERS, ENCOURAGE CPAP USE WHILE SLEEPING. PATIENT EDUCATED HEAVILY ON NEED TO USE AND PATIENT SEEMS AGREEABLE AT THIS TIME. PATIENT IS NOW ALERT AND ORIENTED. LUNG SOUNDS IMPROVED SINCE ADMITTING PATIENT, PATIENT SLIGHTLY HYPERTENSIVE <160 ON LATEST NATALIIA, WILL INFORM PROVIDER ABOUT HOME HTN MEDS AND SCHEDULING MS CONTIN VS PRN BID. PATIENT PAIN SEEMS TO BE CONTROLLED WITH LONG ACTING AND OXYCODONE FOR BREAKTHROUGH. PATIENT Q2 REPOSITIONS IF SOONER. CHEMICAL PROPHALAXIS IN PLACE. BOWEL TONES PRESENT, COLOSTOMY INTAKE AND CATHERTER WITH PUREWIK STILL IN PLACE CATCHING AND DRAINING WELL. PATIENT HAS NO CONCERNS AT THIS TIME. WILL CONTINUE TO MONITOR.
[2021-12-23 11:29] LABS: Base Excess Venous 2.7 mmol/L; Bicarbonate Venous 26.4 mmol/L (24.0-30.0); PCO2 Venous 46.1 mmHg (38-42); pH Blood Venous 7.39 (7.34-7.37)
--- NOTE | 2021-12-23 15:34 | NUR ---
END OF SHIFT: PLEASE SEE ASSUMPTION OF CARE FOR FULL REPORT. PATIENT HAS NOT NEEDED ANY ADDITIONAL APRESOLINE SINCE THIS AM. PAIN MANAGED OKAY WITH EMAR MEDICATIONS. SLIGHLTY IMPROVING.. MS CONTIN IS NOW SCHEDULED VS PRN. PATIENT IN NO SIGN OF ACUTE CARDIAC OR RESPIRATORY DISTRESS. PATIENT WOUND DRESSINGS HAVE BEEN CHANGED. BREAK FROM PUREWIK AFTER TODAYS BED BATH. PATIENT IS ORIENTED, BUT HAS A SLIGHT BRAIN FOG AT TIMES, NOT DIFFERENCE IF MEDICATED WITH EMR MEDS OR WHEN THEY WEAR OFF. PATIENT IS ABLE TO MAKE NEEDS KNOWN, Q2 TURNS PROVIDED. STILL NEEDING 1-2L VIA NC WITH SPO2 >96%. PATIENT HAS NOT WORN CPAP PLAN FOR WHEN DINNER IS FINISHED. PATIENT DENIES ANY FURTHER HALLUCINATION. KARENA SOLARES NOT DRAWING AT THIS TIME WILL CONTINUE TO MONITOR NO CONCERNS FROM THIS ORCHARD PRUNER OR THE PATIENT AT THIS TIME.
[2021-12-24 05:11] LABS: Hematocrit 30.4 % (37.0-53.0); Hemoglobin 9.4 g/dL (13.5-17.5); Mean Corpuscular HGB 27.1 pg (26.0-34.0); Mean Corpuscular HGB Conc 30.9 g/dL (31.5-36.5); Mean Corpuscular Volume 88 fL (80-100); Mean Platelet Volume 9.1 fL (9.1-12.4); Platelet Count 310 K/mm3 (150-400); RDW Coefficient Variation 15.9 % (11.7-14.2); RDW Standard Deviation 50.4 fL (35.1-46.3); Red Blood Cell Count 3.47 M/mm3 (4.30-5.90); White Blood Cell Count 7.28 K/mm3 (4.00-11.30)
[2021-12-24 05:26] LABS: Bun/Creatinine Ratio 43.4 (12.0-20.0); Calcium, Blood 8.9 mg/dL (8.5-10.1); Creatinine, Blood 0.72 mg/dL (0.60-1.20); Potassium, Blood 4.3 mmol/L (3.5-5.5)
[2021-12-24 05:32] LABS: BAND PERCENT MAN 2 % (0-8); BASOPHILS ABSOLUTE MAN 0.21 K/mm3 (0.00-0.23); BASOPHILS PERCENT MAN 3 % (0-2); EOSINOPHILS ABSOLUTE MAN 0.72 K/mm3 (0.00-0.68); EOSINOPHILS PERCENT MAN 10 % (0-6); LYMPHOCYTES ABSOLUTE MAN 1.16 K/mm3 (0.84-5.20); LYMPHOCYTES PERCENT MAN 16 % (21-46); METAMYELOCYTE ABSOLUTE MAN 0.07 K/mm3 (0.00-0.00); METAMYELOCYTE PERCENT MAN 1 % (0-0); MONOCYTES ABSOLUTE MAN 0.65 K/mm3 (0.16-1.47); MONOCYTES PERCENT MAN 9 % (4-13); NEUTROPHILS ABSOLUTE MAN 4.44 K/mm3 (1.96-9.15); SEG NEUTROPHILS PERCENT MAN 59 % (41-73); TOTAL CELLS COUNTED 100
--- NOTE | 2021-12-24 06:41 | NUR ---
NO ACUTE EVENTS OVERNIGHT. BLOOD PRESSURE IMPROVED COMPARED TO PREVIOUS THREE NIGHTS. NO PRN HYDRALAZINE NEEDED THROUGHOUT THE SHIFT. PATIENT MORE ALERT AND MORE TALKATIVE THAN PREVIOUS NIGHT. NO WAXING AND WANING OF MENTATION DOCUMENTED IN PREVIOUS NURSE NOTES. INDWELLING WEN CATHETER CONTINUES TO HAVE ISSUES WITH SIGNIFICANT LEAKAGE. IT APPEARS THAT THE LEAKAGE IS MOST SIGNIFICANT WHEN PATIENT IS LYING DOWN. PATIENT WAS SITTING IN BED WITH THE HEAD OF THE BED AT CLOSE TO A 60 DEGREE ANGLE FOR THE FIRST FEW HOURS OF THE SHIFT PER HIS PREFERENCE. EDUCATION PROVIDED TO PATIENT REGARDING THE NEED TO REDUCE THE INCLINE IN ORDER TO TAKE SOME PRESSURE OFF OF HIS BUTTOCKS AND EXISTING WOUNDS. INCONTINENCE PAD UNDER PATIENT WAS DRY UP UNTIL THAT TIME AND THERE WAS SOME URINE COLLECTED IN THE WEN CATHETER DRAINAGE BAG. SOON THE HEAD OF THE BED WAS RECLINED TO LESS THAN 30 DEGREES, URINE GUSHED FROM THE CATHETER INSERTION SITE AND SOAKED THE PAD. PUREWICK PUT BACK IN PLACE AT APPROXMATELY 0430 THIS MORNING DUE TO CONCERNS FOR CONTINUED SKIN BREAKDOWN SECONDARY TO FREQUENCY OF CATHETER LEAKAGE, WHICH I UNDERSTAND IS A CHRONIC ISSUE AT HOME. SUCTION SET AT 60. WILL CONTINUE TO ASSESS. PATIENT WAS NOT COMPLIANT WITH WEARING THE CPAP THROUGHOUT THE NIGHT. AT MOST, HE WORE IT INTERMITTIENTLY FOR LESS THAN A TOTAL OF 2 HOURS DESPITE EDUCATION REGARDINGS ITS BENEFITS, SPECIFICALLY IT RELATES TO HYPERCAPNIA.
--- NOTE | 2021-12-24 16:10 | NUR ---
END OF SHIFT: PATIENT HAS BEEN MORE ALERT AND ORIENTED THAN PREVIOUS SHIFT WITH PATIENT. PATIENT IS ABLE TO MAKE NEEDS KNOWN, HAS BEEN ON SPECIALTY BED WITH 15MINUTE AUTOMATIC TURNS WITH Q2 TURNS FROM STAFF. PATIENT IS PLEASANT, AFEBRILE, AND MILDLY CONTROLLED WITH PAIN. PATIENT WAS HYPERTENSIVE THIS AM AND SLIGHTLY SWEATY, BLOOD PRESSURE MEDS GIVEN AND NEW INTRODUCTION COZAAR LEFT THIS NOON AND EVENING BLOOD PRESSURE MORE REGULATED FOR THE PATIENT. DENIES CHEST PAIN, SOB, PATIENT IS ON 1L VIA NC MAINLY FOR COMFORT BUT DOES HAVE A BASELINE OF 3L CONT. PATIENT TOLERATED THE CPAP FOR SOME OF THE NIGHT APPROX 2.8 HOURS ACCORDING TO CPAP. PATIENT DOES NOT BELIEVE HE SLEPT AT ALL, MENTATION WAS BETTER THIS AM ONCE FIRST AWAKE THAN PREVIOUS SHIFT WITH HIM. NO CHANGES TO LUNGS NO INCREASE IN ADVENTAGIOUS LUNG SOUNDS AT THIS TIME. PATIENT DENIES SOB AT REST. URINE HAS NOW A CLOUDY TINGE TO IT, ONCE COLLECTED ENOUGH URINE TO SEND FOR A SAMPLE WILL CALL PROVIDER TO ENSURE OK. PATIENT HAS NOT NOTICED ANY PAIN, BUT DOES HAVE A PREIOUS T7 INJURY. GAS AND ACTIVE BOWEL TONES HARDLY ANY STOOL FROM COLOSTOMY, PATIENT APPETITE HAS BEEN OK, PATIENT ON SOME MILD BOWEL PREP, AND HOME REMEDIES FOR HIM SUCH APRICOTS ETC. SKIN/WOUND: PATIENT HAD A DRESSING CHANGE OF BOTH WOUNDS, AND WILL ENSURE WOUND CONSULT RN IS NOTIFIED PERSONALLY TO COME EVALUATE NOW THE NEW ORDER IS IN PLACE. CURRENTLY THIS CUPOLA REPAIRER HAS BEEN USING THE WOUND SPRAY WITH DRYING BY STERILE GAUZE AND COVERING WITH CALCIUM AGANATE AND MEPILEX. PATIENT SKIN IS SENSITIVE TO TAPE MERIFORM AND MEPILEX OK. SOME CHANGES TO DIABETIC MEDS WERE CHANGED BY HOSPITALIST, NIC BECK TO MONITOR PATIENT UNTIL SHIFT CHANGE.
[2021-12-24 20:30] LABS: Source, Urine Foley catheter
[2021-12-24 20:46] LABS: Appearance, Urine Turbid (Clear); Bilirubin, Urine Neg (Neg); Blood, Urine 5+ (Neg); Color, Urine Yellow (P-Yellow); Glucose Qualitative, Urine Neg (Neg); Ketones, Urine Neg (Neg); Leukocyte Esterase, Urine 3+ (Neg); Nitrite, Urine Neg (Neg); Protein, Urine 3+ (Neg); Specific Gravity, Urine 1.015 (1.003-1.022); Urobilinogen, Urine NORM (Normal)
[2021-12-24 21:08] LABS: Bacteria Many /hpf; Red Blood Cells, Urine TNTC /hpf (0-2); Squamous Epithelial Cells Many /hpf (Few); White Blood Cells, Urine TNTC /hpf (0-5)
[2021-12-24 21:10] LABS: Amorphous Light (0-Heavy)
[2021-12-24 23:43] LABS: Bun/Creatinine Ratio 44.3 (12.0-20.0); Calcium, Blood 8.8 mg/dL (8.5-10.1); Creatinine, Blood 0.7 mg/dL (0.60-1.20); Potassium, Blood 4.6 mmol/L (3.5-5.5)
--- NOTE | 2021-12-25 05:16 | NUR ---
ROOF BOLTER OPERATOR SUMMARY PT IS ALERT AND COMUNICATING APPROPRIATELY THIS SHIFT. PT REPORTING PAIN IN HIS R SHOULDER/ARM THROUGH OUT THE SHIFT. BP MODERATELY ELEVATED THIS SHIFT LARGELY RELATED TO HIS PAIN. PT AFEBRILE THIS SHIFT. O2 SATS >90% ON 1L NC. PT SLEEPING FOR MAJORITY OF THE SHIFT. NO OVERNIGHT EVENTS. WILL REPORT TO ONCOMING RN.
[2021-12-25 12:04] LABS: Hematocrit 32.2 % (37.0-53.0); Hemoglobin 9.8 g/dL (13.5-17.5); Mean Corpuscular HGB 26.9 pg (26.0-34.0); Mean Corpuscular HGB Conc 30.4 g/dL (31.5-36.5); Mean Corpuscular Volume 89 fL (80-100); Mean Platelet Volume 8.8 fL (9.1-12.4); Platelet Count 379 K/mm3 (150-400); RDW Coefficient Variation 15.8 % (11.7-14.2); RDW Standard Deviation 50.6 fL (35.1-46.3); Red Blood Cell Count 3.64 M/mm3 (4.30-5.90); White Blood Cell Count 9.06 K/mm3 (4.00-11.30)
[2021-12-25 12:19] LABS: Bun/Creatinine Ratio 45.6 (12.0-20.0); Creatinine, Blood 0.59 mg/dL (0.60-1.20); Potassium, Blood 4.2 mmol/L (3.5-5.5)
[2021-12-25 12:28] LABS: BAND PERCENT MAN 3 % (0-8); BASOPHILS ABSOLUTE MAN 0.09 K/mm3 (0.00-0.23); BASOPHILS PERCENT MAN 1 % (0-2); EOSINOPHILS ABSOLUTE MAN 1.08 K/mm3 (0.00-0.68); EOSINOPHILS PERCENT MAN 12 % (0-6); LYMPHOCYTES ABSOLUTE MAN 0.45 K/mm3 (0.84-5.20); LYMPHOCYTES PERCENT MAN 5 % (21-46); MONOCYTES ABSOLUTE MAN 0.36 K/mm3 (0.16-1.47); MONOCYTES PERCENT MAN 4 % (4-13); MYELOCYTE ABSOLUTE MAN 0.36 K/mm3 (0.00-0.00); MYELOCYTE PERCENT MAN 4 % (0-0); SEG NEUTROPHILS PERCENT MAN 71 % (41-73); TOTAL CELLS COUNTED 100
--- NOTE | 2021-12-25 13:57 | NUR ---
Received call from cotton weigher operator Denise. Pt and family may benefit from advanced care planning and code status discussion. Spoke with Dr Harris and discussed case. Pt resting in bed with INDIGO Rawls at bedside. Pt finsishing up lunch. Offered supportive visit and validated concerns. Engaged in gentle discussion regarding advanced care planning. Educated on disease process including trajectory and the importance of planning for the future. Discussed code status wishes. Educated on life sustaining treatment including risk factors and implications of CPR. Pt and [facility] V/U. Pt wishes are to remain a full code. Pt and family express appreciation and report no other concerns at this time. Palliative Care will remain available.
--- NOTE | 2021-12-25 17:38 | NUR ---
END OF SHIFT: NEURO: ALERT AND ORIENTED VERY CLOSE TO BASELINE, PLEASANT, COOPERATIVE WITH CARE, ABLE TO MAKE NEEDS KNOWN, PAIN IN BETTER MANAGEMENT TODAY, AFEBRILE AND IN PATIENTS' NORMAL RANGE OF TEMPERATURE. CARDIAC: PATIENT WAS ST ALL DAY UNTIL ROUGHLY 1-2 HOURS AGO AND NOW IS CURRENLTY 80-90'S DENIES CHEST PAIN/PRESSURE OR SOB AT REST. BLOOD PRESSURE MILDLY ELEVATED WILL INFORM NIGHT RN TO RECOMMEND HOME DOSE OF COZAAR FOR PROLONGED CONTROL OF BLOOD PRESSURE. PULM: NO CHANGES FROM ASSUMPTION OR PREVIOUS SHIFT. 0-1L VIA NC SPO2 >94%. GI/: PATIENT WITH CHRONIC WEN, LEAKING, PURWIK IN PLACE, GREAT URINE OUTPUT, INTRODUCED PRN MIRALAX, INCREASED OSTOMY PRODUCTION, WOUNDS: 2 X WOUND DRESSING CHANGE, BED LINEN CHANGE. PATIETN PARTIAL BED BATH. CT PREFORMED PATIENT CONDITION THIS AM DETERIORATED, INCREASED PAIN AND DIAPHORETIC, NO CHEST PAIN, INCREASED HR ST 110'S-120'S PATIENT INCREASED TEMP FROM NORMAL BY FULL DEGREE, NO INCREASED OXYGEN DEMAND, PROVIDER ASSESSED, LABS, AND CT WAS PREFORMED, ONCE BACK FROM CT PATIENT SIGNIFICANTLY IMPROVED. WILL CONTINUE TO MONITOR UNTIL SHIFT CHANGE.
--- NOTE | 2021-12-26 04:43 | NUR ---
SHIFT SUMMARY - NO ACUTE CHANGES THROUGHOUT THIS SHIFT. PT'S MAIN COMPLAINT HAS BEEN RIGHT ARM/SHOULDER PAIN - SEE EMAR FOR PAIN MANAGEMENT. PT REPORTED A HEADACHE X1 - RELIEVED WITH TYLENOL. PT HAS OTHERWISE BEEN SLEEPING THROUGHOUT MOST OF THE NIGHT. PT DENIED ANY CHEST PAIN, OR NAUSEA. PT REMAINS ON 1L O2 VIA NC. PT IS ON A BARIATRIC AIR BED, PT HAS BEEN ADJUSTED MULTIPLE TIMES WITH AIR BED PRESSURE CHANGES. PERIWICK PUT OUT 1100 CC URINE. FLUIDS AT BEDSIDE. PT PROVIDED WITH SNACKS X2 PER REQUEST. BED IN LOW POSITION. CALL LIGHT WITHIN REACH. WILL CONTINUE TO MONITOR UNTIL AM SHIFT CHANGE. COLOSTOMY WITH SMALL AMOUNT OF FORMED SOFT BROWN STOOL.
--- NOTE | 2021-12-26 05:00 | NUR ---
COLOSTOMY - UPDATE - HARD FORMED BROWN STOOL, SMALL AMOUNT OUT. WEN - CLOUDY YELLOW/LIGHT PINK URINE OUT. PT DENIES ANY REQUESTS. CALL LIGHT WITHIN REACH. BED IN LOW POSITION.
--- NOTE | 2021-12-26 14:36 | NUR ---
WOUND CARE COMPLETE WITH BEDBATH. PUREWICK CHANGED WELL.
--- NOTE | 2021-12-26 17:38 | NUR ---
SUMMARY PT A/O X4. HAS CHRONIC PAIN IN R SHOULDER. PRN MEDS GIVEN AND REPOSITIONING. PT HAS CHRONIC WEN THAT IS DIFFICULT TO VISUALIZE ANATOMY. WEN CONSTANTLY LEAKS. ATTEMPTED AIRWICK BUT TOOK IT OUT DUE TO STILL LEAKING AROUND IT AND SKIN IS HIGH RISK. HAS WOUNDS TO R BUTTOCK, SCROTUM, AND L HIP. MOTOR SCOOTER MECHANIC BRANDI CAME IN TO SEE PT, NEW PHOTOS TAKEN AND DRESSED WITH CALCIUM ALGINATE AND ABD PADS. SOME OF THE LEAKING ON TO PADS COULD BE FROM WOUNDS WELL. PT IS ON BED THAT ROTATES WELL REPOSITIONING Q2HR. NO SIGN OF DISTRESS. CALL LIGHT IN REACH AND PT USES APPROPRIATELY.
--- NOTE | 2021-12-26 19:15 | NUR ---
ASSUMED CARE OF PT @1900. PT IS RESTING IN BED. COMPLAINS OF R SHOULDER PAIN. PT ON 1L O2 VIA NC. PT HAS 2 PG IV'S IN KARENA. ONE SALINE LOCK. ONE INFUSING TKO 10MLS/HR. WEN CATH IN PLACE AND DRAINING TO GRAVITY. PT IS A&O X4. PLEASANT AND COOPERATIVE W/CARE.
--- NOTE | 2021-12-27 02:08 | NUR ---
CPAP ON PT W/2L O2 BLEED IN.
--- NOTE | 2021-12-27 06:32 | NUR ---
SUMMARY: NO ACUTE EVENTS OVERNIGHT. PT IS A&O X4. PLEASANT AND COOPERATIVE WITH CARE. HR 80-90'S. SBP STABLE. RR <20. SPO2 >94% ON 1L O2 VIA NC. PT WORE CPAP FOR APPROX 2HRS DURING THE NIGHT. PT HAS CHRONIC PAIN TREATED WITH PRN MEDICATIONS THROUGHOUT SHIFT. MULTIPLE DRESSING AND LINEN CHANGES DONE AT Q2HR INTERVALS WITH TURNING. WEN CATH IS PRESENT BUT URINE CONTINUES TO LEAK AROUND IT. WOUNDS ON HIPS AND BUTTOCKS WEEPING INTO ABSORBANT PADS. CALC. ALG. PLACED IN WOUNDS AND COVERED WITH ABD. OSTOMY LL ABDOMEN EMPTIED OF FORMED STOOLS DURING SHIFT. PT HAS 2 PG IV'S IN KARENA.
[2021-12-27 09:08] LABS: Hematocrit 35.7 % (37.0-53.0); Hemoglobin 10.3 g/dL (13.5-17.5); Mean Corpuscular HGB 26.2 pg (26.0-34.0); Mean Corpuscular HGB Conc 28.9 g/dL (31.5-36.5); Mean Corpuscular Volume 91 fL (80-100); Mean Platelet Volume 9.1 fL (9.1-12.4); Platelet Count 467 K/mm3 (150-400); RDW Coefficient Variation 15.4 % (11.7-14.2); RDW Standard Deviation 51.1 fL (35.1-46.3); Red Blood Cell Count 3.93 M/mm3 (4.30-5.90)
[2021-12-27 09:25] LABS: Magnesium, Blood 1.9 mg/dL (1.6-2.4)
[2021-12-27 09:26] LABS: Albumin, Blood 2.5 g/dL (3.4-5.0); Albumin/Globulin Ratio 0.6 (0.8-1.8); Bilirubin, Total 0.4 mg/dL (0.1-1.0); Bun/Creatinine Ratio 46.8 (12.0-20.0); Calcium, Blood 9.2 mg/dL (8.5-10.1); Creatinine, Blood 0.56 mg/dL (0.60-1.20); Globulin, Blood 3.9 g/dL (2.2-4.0); Potassium, Blood 4.8 mmol/L (3.5-5.5); Total Protein, Blood 6.4 g/dL (6.4-8.2)
--- NOTE | 2021-12-27 11:07 | NUR ---
PATIENTS OSTOMY APPLIANCE HAS BEEN CHANGED. HE TOLERATED IT WELL. OUTPUT HAS SOFT FORMED BROWN STOOL. CALL LIGHT WITHIN REACH.
--- NOTE | 2021-12-27 15:38 | NUR ---
SHIFT SUMMARY: PATIENT IS A&OX4. HE HAS A HIGH SBP BUT OTHERWISE HIS VS ARE WNL. HE IS ON 1L NC OF OXYGEN WITH >90% OXYGEN SATS. HE IS TAKING HIS BP MEDICATIONS AND DENIES CHEST PAIN OR SOB THROUGHOUT SHIFT. PATIENT HAS CHRONIC PAIN THAT IS TREATED WITH PRN MEDICATIONS THROUGHOUT SHIFT. HE HAS A MEPLIEX ON HIS COCCYX AND HIPS WELL A RIGHT HEEL PROTECTOR ON WHICH ARE ALL C/D/I AT THIS TIME. HE HAS BEEN HAVING Q2H REPOSITIONINGS. CHRONIC WEN IS IN PLACE BUT IS LEAKING AROUND IT STILL. ABD PADS ARE BELOW THE WEN CATH TO CATCH THE LEAKING AND ARE CHANGED PRN. PATIENTS COLOSTOMY IS ON HIS RUQ THAT HAS BEEN PRODUCING SOFT BROWN STOOL AND GAS. HIS OSTOMY APPPLIANCE WAS CHANGED ALSO TODAY WHICH HE TOLERATED WELL. HE IS TOLERATING PO INTAKE BUT NEEDS TO BE ENCOURAGED TO EAT MORE PROTEIN THAT ARE IN HIS MEALS. CALLS APPROPRIATELY. CALL LIGHT WITHIN REACH. THE PLAN IS THAT HE WILL BE DISCHARGING HOME ONCE THE AT HOME LIFT IS DELIEVERED FOR THE TO AIDE IN HIS CARE AT HOME.
--- NOTE | 2021-12-28 06:08 | NUR ---
SHIFT SUMMERY PT HAS HAD NO ACUTE CHANGES OVERNIGHT. HIS WEN CATHETER CONTINUES TO LEAK. REFUSED TO ALLOW LAB TO DRAW FROM HIS HANDS AND LAB WAS UNABLE TO OBTAIN SPECIMEN ELSEWEAR. POWER GLIDES DO NOT DRAW. DAY SHIFT CONSUMER INSIGHTS INTERN TO ATTEMPT TO OBTAIN.
[2021-12-28 07:31] LABS: Hematocrit 30.6 % (37.0-53.0); Hemoglobin 9.4 g/dL (13.5-17.5); Mean Corpuscular HGB 27.3 pg (26.0-34.0); Mean Corpuscular HGB Conc 30.7 g/dL (31.5-36.5); Mean Corpuscular Volume 89 fL (80-100); Platelet Count 472 K/mm3 (150-400); RDW Coefficient Variation 15.5 % (11.7-14.2); RDW Standard Deviation 50.4 fL (35.1-46.3); Red Blood Cell Count 3.44 M/mm3 (4.30-5.90); White Blood Cell Count 9.95 K/mm3 (4.00-11.30)
[2021-12-28 07:44] LABS: Albumin, Blood 2.3 g/dL (3.4-5.0); Albumin/Globulin Ratio 0.6 (0.8-1.8); Bilirubin, Total 0.2 mg/dL (0.1-1.0); Bun/Creatinine Ratio 59.3 (12.0-20.0); Calcium, Blood 9.2 mg/dL (8.5-10.1); Creatinine, Blood 0.57 mg/dL (0.60-1.20); Globulin, Blood 3.8 g/dL (2.2-4.0); Potassium, Blood 4.7 mmol/L (3.5-5.5); Total Protein, Blood 6.1 g/dL (6.4-8.2)
--- NOTE | 2021-12-28 10:08 | NUR ---
DRESSING TO WOUND ON R HIP/BUTTOCKS SATURATED W/ URINE. REMOVED OLD DRESSING, CLEANED & NEW DRESSING PLACED PER ORDERS.
--- NOTE | 2021-12-28 12:22 | NUR ---
PATIENT DECLINE LUNCH TRAY. REPORTED NOT BEING HUNGRY AT THIS TIME.
--- NOTE | 2021-12-28 15:41 | NUR ---
CHANGED DRESSING TO R HIP/BUTTOCKS WOUND.
--- NOTE | 2021-12-28 16:16 | NUR ---
THIS RN NOTIFIED DR LIN OF PATIENTS ELEVATED BLOOD PRESSURE THROUGHOUT THE SHIFT. AM MEDICATIONS DID NOT BRING IT DOWN. PATIENT FELT THAT IT WAS D/T PAIN, ALTHOUGH ITHAS NOT COME DOWN AFTER PAIN MEDICATIONS EITHER. NO NEW ORDERS GIVEN DURING TELEPHONE CONVERSATION WITH DR. LIN.
--- NOTE | 2021-12-28 16:18 | NUR ---
SHIFT SUMMARY NO ACUTE CHANGES IN PATIENT CONDITION THIS SHIFT. PATIENT REMAINS MEDICAL STATUS. BLOOD PRESSURE HAS BEEN ELEVATED THROUGHOUT SHIFT, MD NOTIFED, NO NEWORDERS GIVEN AT THIS POINT. PATIENT HAS BEEN ASYMPTOMATIC W/ THE HTN, VERBALIZES THAT HE FEELS IT IS FROM PAIN. MEDICATED FOR R SHOULDER PAIN T/O SHIFT, PER EMAR, WHICH IS NOTED TO BE CHRONIC. PATIENT IS BED BOUND D/T PARAPLEGIA. Q2 TURNS & ATTENDS CHANGE. CHRONIC WEN & OSTOMY, HOWEVER, WEN LEAKS AND REQUIRES ATTENDS/CHUCKS TO BE CHANGED FREQUENTLY. PATIENT EXPRESSED THAT IT IS FROM THE POSITIONING OF THE HOSPITAL BED. SEVERE PRESSURE ULCER TO R BUTTOCKS/HIP W/ DRESSING IN PLACE & CHANGED T/O SHIFT NEEDED. APPETITE HAS BEEN OK TODAY, DID REFUSE LUNCH TRAY. CBG'S IN LOW-MID 100'S WITH NO INSULIN COVERAGE NEEDED THUS FAR. PATIENT IS VERY COPPERATIVE W/ CARE, CALLS APPROPRIATELY. WILL REPORT TO ONCOMING RN.
--- NOTE | 2021-12-28 18:45 | NUR ---
DRESSING TO R BUTTOCK/HIP CHANGED PER ORDERS.
--- NOTE | 2021-12-29 06:11 | NUR ---
Assumed care of pt at 1900. A/Ox4, cooperative with care and calls appropriately. Patient calls q4 regarding pain in R shoulder, medicated per emar along with repositioning. Maintains over 95% on 2L NC. LS clear upper and dim at bases. Shallow breathing pattern. Denies CP/pressure, BP maintained SBP 150-160, PRN's given. Strong +2 radial pulses, and +1 R pedal pulse. Nonpitting in BUE, 1+ in abdomen and 3+ in RLE. Patients abdomen is distended, patient reports normal. Abdomen very firm. Ostomy in LUQ producing semiformed brown stool. Appliance changed this shift d/t it lifting. Stoma pink in color without any skin breakdown. Moreno draining to gravity clear/yellow urine, although urine mostly leaks around it. Pads changed PRN. R hip, L sacrum wounds cleaned and redressed with calcium alginate and abdominal pads multiple times this shift. No acute changes. Will report to magalie JOHNSON.
--- NOTE | 2021-12-29 18:52 | NUR ---
SHIFT SUMMARY NO ACUTE EVENTS THIS SHIFT. PT WAS ABLE TO ASSIST WITH REPOSITIONING IN BED WITH STAFF ASSISTANCE. WOUNDS ON BUTTOCKS DRY, DRESSING C/D/I. PT HAD A LOW APPETITE FOR BREAKFAST, BUT INDICATED IMPROVED APPETITE FOR LUNCH/DINNER. PT HAD ELEVATED BLOOD PRESSURE THIS MORNING, DISCUSSED WITH DR. LIN, ORDERS FOR 1 TIME [place] DOSE GIVEN AND BID DOSE INCREASED, SEE EMAR. PT COMPLAINED OF A HEADACHE THIS MORNING, TYLENOL GIVEN. PT COMPLAINED OF CONSISTENT R SHOULDER PAIN, MEDICATED PER EMAR. WEN DRAINING TO GRAVITY, COLOSTOMY BAG INTACT WITH BROWN, SEMI-FORMED, SOFT OUTPUT. PT'S WAS AT BEDSIDE TODAY, THE HOME LIFT WAS NOT DELIVERED TODAY, AND SHE IS HOPEFUL IT WILL BE DELIVERED TOMORROW FOR DISCHARGE TO HOME.
[2021-12-30 04:24] LABS: Hematocrit 29.9 % (37.0-53.0); Mean Corpuscular HGB 27.1 pg (26.0-34.0); Mean Corpuscular HGB Conc 30.1 g/dL (31.5-36.5); Mean Corpuscular Volume 90 fL (80-100); Mean Platelet Volume 9.3 fL (9.1-12.4); Platelet Count 436 K/mm3 (150-400); RDW Coefficient Variation 15.4 % (11.7-14.2); RDW Standard Deviation 51.1 fL (35.1-46.3); Red Blood Cell Count 3.32 M/mm3 (4.30-5.90); White Blood Cell Count 9.75 K/mm3 (4.00-11.30)
[2021-12-30 04:47] LABS: Albumin, Blood 2.5 g/dL (3.4-5.0); Albumin/Globulin Ratio 0.7 (0.8-1.8); Bilirubin, Total 0.3 mg/dL (0.1-1.0); Bun/Creatinine Ratio 70.3 (12.0-20.0); Calcium, Blood 9.4 mg/dL (8.5-10.1); Creatinine, Blood 0.67 mg/dL (0.60-1.20); Globulin, Blood 3.6 g/dL (2.2-4.0); Magnesium, Blood 2.1 mg/dL (1.6-2.4); Potassium, Blood 4.9 mmol/L (3.5-5.5); Total Protein, Blood 6.1 g/dL (6.4-8.2)
--- NOTE | 2021-12-30 06:32 | NUR ---
NOC SHIFT SUMMARY PT SLEPT WELL OVERNIGHT, VSS PER PT TREND. INCREASED SBP IN 160S WITH PAIN OR HEADACHE -RELIEVED BY AVAILABLE PRNS. PT REFUSING SOME CARES/Q2 TURNS AND EDUCATED ON IMPORTANCE FOR WOUND HEALING. FREQUENT SOAKING OF BANDAGES - DUE TO LEAKING AROUND WEN CATHTER. PUREWIC PLACED FOR MANAGEMENT AND APPEARS TO BE WORKING WELL THIS AM. WOUND CARE CONSULT PLACED. WILL PASS ON TO DAY RN.
--- NOTE | 2021-12-30 07:26 | NUR ---
ASSUMED CARE: PT RESTING QUIETLY AT THIS TIME. 3L NC IN PLACE WITH SLEEP. NO FURTHER NEEDS OR CONCERNS AT PRESENT.
--- NOTE | 2021-12-30 13:34 | NUR ---
DISCUSSED PT'S DC INFORMATION WITH PT AND HIS . PT TRANSFERRED INTO ELECTRIC SCOOTER VIA LIFT. WOUND DRESSINGS CHANGED PRIOR TO DC. PGS REMOVED WNL. DENIED QUESTIONS OR CONCERNS UPON DISCHARGE.
== END 2021-12-30 13:32 | disposition home or self-care (01) | DRG 698 ==
LOC: ER 09:43 → PCU 13:41
PROVIDERS: Emergency Medicine; Internal Medicine; Student in an Organized Health Care Education/Training Program; ADMIT Internal Medicine
DX: T83.511A Infection and inflammatory reaction due to indwelling urethral catheter, initial encounter (principal); A41.59 Other Gram-negative sepsis; L89.154 Pressure ulcer of sacral region, stage 4; L89.224 Pressure ulcer of left hip, stage 4; L89.214 Pressure ulcer of right hip, stage 4; R65.20 Severe sepsis without septic shock; G82.50 Quadriplegia, unspecified; N17.9 Acute kidney failure, unspecified; Z68.41 Body mass index [BMI] 40.0-44.9, adult; N13.6 Pyonephrosis; G93.40 Encephalopathy, unspecified; G82.22 Paraplegia, incomplete; E87.5 Hyperkalemia; G47.33 Obstructive sleep apnea (adult) (pediatric); E11.9 Type 2 diabetes mellitus without complications; E66.01 Morbid (severe) obesity due to excess calories; N31.9 Neuromuscular dysfunction of bladder, unspecified; B96.89 Other specified bacterial agents as the cause of diseases classified elsewhere; D63.8 Anemia in other chronic diseases classified elsewhere; Z88.1 Allergy status to other antibiotic agents; Z88.2 Allergy status to sulfonamides; Z88.8 Allergy status to other drugs, medicaments and biological substances; Z79.899 Other long term (current) drug therapy; Z79.891 Long term (current) use of opiate analgesic; Z79.4 Long term (current) use of insulin; Z79.01 Long term (current) use of anticoagulants; Z87.39 Personal history of other diseases of the musculoskeletal system and connective tissue; Z98.890 Other specified postprocedural states; Z93.3 Colostomy status; Z89.612 Acquired absence of left leg above knee; Z95.828 Presence of other vascular implants and grafts; Z74.01 Bed confinement status; Z98.2 Presence of cerebrospinal fluid drainage device
CPT/HCPCS: 36415; 51703; 71045; 72193; 76770; 80048; 80053; 80069; 81001; 82570; 82803; 82947; 83605; 83735; 84132; 84145; 84300; 85025; 85027; 87040; 87070; 87075; 87077; 87086; 87186; 87205; 93005; 93010; 94660; 94760; 94762; 96365; 96375; 97110; 97165; 97530; 99285-25; A9270; C1751; J0360; J0610; J0696; J1642; J1650; J1815; J2185; J3010; J7030; J7050; Q9967

== ENCOUNTER 2022-01-23 09:23 | Day surgery (SDC) | payer MEDICARE, BC ==
[~2022-01-23 09:23] MED LIST changes: +CRANBERRY450 M1 PO; +OXCA150 PO; +OXYC30ER PO; +THERA-D2000 UNIT PO
== END 2022-01-23 14:35 | disposition home or self-care (01) ==
LOC: ATC 09:23
DX: A41.9 Sepsis, unspecified organism (principal); N39.0 Urinary tract infection, site not specified; D64.9 Anemia, unspecified; E11.9 Type 2 diabetes mellitus without complications; G82.20 Paraplegia, unspecified; N31.9 Neuromuscular dysfunction of bladder, unspecified; Z88.1 Allergy status to other antibiotic agents; Z88.2 Allergy status to sulfonamides; Z79.4 Long term (current) use of insulin
CPT/HCPCS: 96523; J1642

== ENCOUNTER → 2022-02-06 | Outpatient (CLI) | payer MEDICARE, BC ==
[2022-02-06 12:55] LABS: Source, Urine Straight Cath
[2022-02-06 13:35] LABS: Appearance, Urine Turbid (Clear); Bilirubin, Urine Neg (Neg); Blood, Urine 5+ (Neg); Color, Urine Red (P-Yellow); Glucose Qualitative, Urine Neg (Neg); Ketones, Urine Neg (Neg); Leukocyte Esterase, Urine 3+ (Neg); Nitrite, Urine Pos (Neg); Protein, Urine 4+ (Neg); Urobilinogen, Urine NORM (Normal)
[2022-02-06 14:02] LABS: Red Blood Cells, Urine TNTC /hpf (0-2); White Blood Cells, Urine TNTC /hpf (0-5)
[2022-02-06 14:05] LABS: Bacteria Mod /hpf; Hyaline Casts 0-2 /lpf (0-2); RBC Cast 0-2 /lpf (0); Squamous Epithelial Cells Rare /hpf (Few); Transitional Epithelial Cells Not Seen /hpf (0-Rare); WBC Cast 0-2 /lpf (0)
== END | disposition home or self-care (01) ==
LOC: LAB SHORT 10:10 → LAB 10:10
PROVIDERS: Nurse Practitioner Family
DX: R30.0 Dysuria (principal); Z87.440 Personal history of urinary (tract) infections
CPT/HCPCS: 81001; 87077; 87086; 87186

== ENCOUNTER 2022-03-05 00:41 | Inpatient (IN) | payer MEDICARE, BC ==
[~2022-03-05] VITALS: Ht 132.1 cm; Wt 143.0 kg
[~2022-03-05 00:41] MED LIST changes: -ZANAFLEX PO
[2022-03-05 01:23] LABS: Source, Urine Foley catheter
[2022-03-05 01:24] LABS: BASOPHILS ABSOLUTE AUTO 0.05 K/mm3 (0.00-0.23); BASOPHILS PERCENT AUTO 0 % (0-2); EOSINOPHILS ABSOLUTE AUTO 0.05 K/mm3 (0.00-0.68); EOSINOPHILS PERCENT AUTO 0 % (0-6); Hematocrit 37.3 % (37.0-53.0); Hemoglobin 11.5 g/dL (13.5-17.5); IMMATURE GRAN ABSOLUTE AUTO 0.08 K/mm3 (0.00-0.10); IMMATURE GRAN PERCENT AUTO 1 % (0-1); LYMPHOCYTES ABSOLUTE AUTO 1.08 K/mm3 (0.84-5.20); LYMPHOCYTES PERCENT AUTO 8 % (21-46); MONOCYTES ABSOLUTE AUTO 1.29 K/mm3 (0.16-1.47); MONOCYTES PERCENT AUTO 9 % (4-13); Mean Corpuscular HGB 27.4 pg (26.0-34.0); Mean Corpuscular HGB Conc 30.8 g/dL (31.5-36.5); Mean Corpuscular Volume 89 fL (80-100); Mean Platelet Volume 9.7 fL (9.1-12.4); NEUTROPHILS ABSOLUTE AUTO 11.66 K/mm3 (1.96-9.15); NEUTROPHILS PERCENT AUTO 82 % (41-73); Platelet Count 338 K/mm3 (150-400); RDW Standard Deviation 48.5 fL (35.1-46.3); White Blood Cell Count 14.21 K/mm3 (4.00-11.30)
[2022-03-05 01:29] LABS: Bilirubin, Urine Neg (Neg); Blood, Urine 5+ (Neg); Glucose Qualitative, Urine Neg (Neg); Ketones, Urine Neg (Neg); Leukocyte Esterase, Urine 3+ (Neg); Nitrite, Urine Neg (Neg); Protein, Urine 3+ (Neg); Urobilinogen, Urine NORM (Normal); pH, Urine 6.5 (5.0-8.0)
[2022-03-05 01:32] LABS: Appearance, Urine Turbid (Clear); Color, Urine Pale Yellow (P-Yellow)
[2022-03-05 02:27] LABS: Bacteria Many /hpf; Red Blood Cells, Urine 0-2 /hpf (0-2); Squamous Epithelial Cells Not Seen /hpf (Few); White Blood Cells, Urine TNTC /hpf (0-5)
[2022-03-05 03:21] LABS: Albumin/Globulin Ratio 0.8 (0.8-1.8); Bilirubin, Total 0.3 mg/dL (0.1-1.0); Bun/Creatinine Ratio 28.9 (12.0-20.0); Calcium, Blood 8.6 mg/dL (8.5-10.1); Creatinine, Blood 1.21 mg/dL (0.60-1.20); Potassium, Blood 5.2 mmol/L (3.5-5.5)
[2022-03-05 04:19] LABS: Influenza A, PCR NEGATIVE (NEGATIVE); Influenza B, PCR NEGATIVE (NEGATIVE); Resp Syncytial Virus, PCR NEGATIVE (NEGATIVE); SARS-Cov-2 (COVID-19) PCR, MMC NEGATIVE (NEGATIVE)
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
[2022-03-05 08:18] LABS: Base Excess Venous 5.1 mmol/L; Bicarbonate Venous 28.2 mmol/L (24.0-30.0); PCO2 Venous 51.2 mmHg (38-42); pH Blood Venous 7.38 (7.34-7.37)
--- NOTE | 2022-03-05 17:46 | NUR ---
SHIFT SUMMARY PT AxOx4. PLEASANT AND COOPERATIVE WITH CARE. PT IS A PARAPLEGIC WITH LOSS OF SENSATION FROM BELOW HIS CHEST. PT IS WC BOUND AT BASELINE. PT HAS CHRONIC DECUBITUS ULCERS TO HIS BILATERAL BUTTOCKS AND WOUND TO R LATERAL ANKLE. PICTURES IN CHART. ADMISSION ASSESSMENT COMPLETED BY THIS RN. PT HAS A CHRONIC WEN CATHETER WITH DEFORMED GENITALIA. WEN CATHETER WAS REPLACED YESTERDAY BY HOME HEALTH PRIOR TO ADMISSION. PT REPORTS CHRONIC PAIN AND WAS GIVEN PAIN MEDS PER EMAR WITH REPORTED RELIEF. PT AND HIS , DARLING, WHO IS HIS CAREGIVER, EXPRESSED CONCERN FOR NEED OF AIR BED AND FREQUENT REPOSITIONING D/T SEVERITY OF ULCERS. AIR BED REQUESTED TO [employer]BR[employer] WHEEL MOLDER AND PT IS CURRENTLY BEING PREPARED TO RELOCATE TO A LIFT ROOM TO ASSIST WITH REPOSITIONING AND CHANGING. WOUND CARE PERFORMED AND WOUNDS REDRESSED, CATH CARE/TAVON CARE PERFORMED, AND OSTOMY BAG REPLACED THIS SHIFT. PT ALSO GIVEN BED BATH. WOUND CARE CONSULT/ORDER PLACED THIS SHIFT. PT IS CURRENTLY RESTING IN BED WITH AT BEDSIDE AND CALL LIGHT IN REACH. PT DENIES ANY NEEDS AT THIS TIME.
--- NOTE | 2022-03-06 03:57 | NUR ---
Patient resting in bed at this time, repositioning performed with cardiac sonographer, pain controlled with prn medications.
[2022-03-06 06:02] LABS: BASOPHILS ABSOLUTE AUTO 0.05 K/mm3 (0.00-0.23); BASOPHILS PERCENT AUTO 1 % (0-2); EOSINOPHILS ABSOLUTE AUTO 0.26 K/mm3 (0.00-0.68); EOSINOPHILS PERCENT AUTO 2 % (0-6); Hematocrit 31.6 % (37.0-53.0); Hemoglobin 9.6 g/dL (13.5-17.5); IMMATURE GRAN ABSOLUTE AUTO 0.05 K/mm3 (0.00-0.10); IMMATURE GRAN PERCENT AUTO 1 % (0-1); LYMPHOCYTES ABSOLUTE AUTO 1.19 K/mm3 (0.84-5.20); LYMPHOCYTES PERCENT AUTO 11 % (21-46); MONOCYTES ABSOLUTE AUTO 0.94 K/mm3 (0.16-1.47); MONOCYTES PERCENT AUTO 9 % (4-13); Mean Corpuscular HGB 27.2 pg (26.0-34.0); Mean Corpuscular HGB Conc 30.4 g/dL (31.5-36.5); Mean Corpuscular Volume 90 fL (80-100); Mean Platelet Volume 10.1 fL (9.1-12.4); NEUTROPHILS ABSOLUTE AUTO 8.28 K/mm3 (1.96-9.15); NEUTROPHILS PERCENT AUTO 77 % (41-73); Platelet Count 266 K/mm3 (150-400); RDW Coefficient Variation 15.3 % (11.7-14.2); RDW Standard Deviation 50.3 fL (35.1-46.3); Red Blood Cell Count 3.53 M/mm3 (4.30-5.90); White Blood Cell Count 10.77 K/mm3 (4.00-11.30)
[2022-03-06 08:17] LABS: Bun/Creatinine Ratio 35.2 (12.0-20.0); Calcium, Blood 9.8 mg/dL (8.5-10.1); Creatinine, Blood 1.65 mg/dL (0.60-1.20); Potassium, Blood 4.8 mmol/L (3.5-5.5)
--- NOTE | 2022-03-06 15:11 | NUR ---
WOUND CARE WOUND PHOTO AND ASSESSMENT IN HARD CHART. WOUND CARE ORDERS IN [facility].
--- NOTE | 2022-03-06 18:04 | NUR ---
SHIFT SUMMARY: PT ALERT AND ORIENTED X4. PT IS VERY PLEASANT AND COOPERATIVE WITH CARE. PT C/O PAIN TWICE THIS SHIFT. GAVE SCHEDULED MORPHINE AND PRN OXYCODONE. BULL FROM WOUND CLINIC ARRIVED THIS AM TO ASSESS, CLEAN, AND DRESS PRESSURE WOUNDS ON BOTH BUTTOCK AND RIGHT ANKLE. GOT AN ORDER FOR AN AIR BED WHICH PATIENT IS TOLERATING WELL. PT AND BOTH STATED PT WAS TO HAVE CAROTID ULTRASOUND PRIOR TO ADMISSION BUT DUE TO BEING SICK, HE WAS NOT ABLE TO HAVE IT DONE. CALLED DR. SPENCE WHO STATED IT WAS OKAY TO PUT IN ORDER FOR ULTRASOUND. TECH WAS HERE AT 1745 FOR ULTRASOUND. PT USES LIFT WITH ALL TRANSFERS. PT MEDIPORT ACCESSED AND FLUSHING W/O COMPLAINTS. CALL LIGHT IN REACH. BED IN LOWEST POSITION. WILL CONTINUE TO MONITOR.
--- NOTE | 2022-03-07 05:22 | NUR ---
Shift Summary AOx4, pleasant and cooperative. Heavy pain in R shoulder, rcvd scheduled morphine and PRN oxycodone. Pt has mediport, accessed once to give rocephin then heparine locked port. Slept well t/o the night, no acute events.
[2022-03-07 06:18] LABS: BASOPHILS ABSOLUTE AUTO 0.06 K/mm3 (0.00-0.23); BASOPHILS PERCENT AUTO 1 % (0-2); EOSINOPHILS ABSOLUTE AUTO 0.41 K/mm3 (0.00-0.68); EOSINOPHILS PERCENT AUTO 4 % (0-6); Hematocrit 33.4 % (37.0-53.0); IMMATURE GRAN ABSOLUTE AUTO 0.13 K/mm3 (0.00-0.10); IMMATURE GRAN PERCENT AUTO 1 % (0-1); LYMPHOCYTES ABSOLUTE AUTO 1.38 K/mm3 (0.84-5.20); LYMPHOCYTES PERCENT AUTO 13 % (21-46); MONOCYTES ABSOLUTE AUTO 0.77 K/mm3 (0.16-1.47); MONOCYTES PERCENT AUTO 7 % (4-13); Mean Corpuscular HGB Conc 29.9 g/dL (31.5-36.5); Mean Corpuscular Volume 90 fL (80-100); Mean Platelet Volume 9.9 fL (9.1-12.4); NEUTROPHILS ABSOLUTE AUTO 8.06 K/mm3 (1.96-9.15); NEUTROPHILS PERCENT AUTO 75 % (41-73); Platelet Count 302 K/mm3 (150-400); RDW Coefficient Variation 14.6 % (11.7-14.2); RDW Standard Deviation 47.9 fL (35.1-46.3); Red Blood Cell Count 3.71 M/mm3 (4.30-5.90); White Blood Cell Count 10.81 K/mm3 (4.00-11.30)
[2022-03-07 06:43] LABS: Albumin, Blood 2.2 g/dL (3.4-5.0); Anion Gap 4 mmol/L (6-16); Blood Urea Nitrogen 51 mg/dL (8-24); Bun/Creatinine Ratio 42.5 (12.0-20.0); CO2, Blood 33 mmol/L (21-32); Chloride, Blood 103 mmol/L (98-108); Glomerular Filtration Rate 66 (60-); Glucose, Blood 138 mg/dL (70-99); Magnesium, Blood 2.8 mg/dL (1.6-2.4); Phosphorus, Blood 3.9 mg/dL (2.5-4.9); Potassium, Blood 4.6 mmol/L (3.5-5.5); Sodium, Blood 140 mmol/L (136-145)
--- NOTE | 2022-03-07 15:20 | NUR ---
Wound care called to see what the plan of care is for patient.
--- NOTE | 2022-03-08 06:05 | NUR ---
Patient resting in bed, pain controlled with prn medication.
--- NOTE | 2022-03-08 17:21 | NUR ---
SHIFT SUMMARY- PT ALERT AND ORIENTED. PT IS A PARAPLEDGIC WITH SACRAL AND SCROTAL WOUNDS, PHOTOS IN CHART, DRESSINGS CHANGED THIS SHIFT BY ADDITIONAL RN. PT HAS SWEATS AND SUCH DRESSINGS DONT STAY IN PLACE WELL. DRESSING FOR MEDIPORT CHANGED TWICE YESTERDAY, REINFORCED TODAY AFTER CHG BATH WAS COMPLETED. PT MANAGES HIS OWN OSTOMY. NO OUTPUT THIS SHIFT. PT HAS BEEN MEDICATED FOR PAIN Q4 WITH HIS HOME DOSE OF PAIN MEDS THAT ARE ORDERED HERE. PLAN IS TO DC HOME WITH ABX INFUSIONS DAILY IN THE ATC.
--- NOTE | 2022-03-09 06:45 | NUR ---
ALERT AND ORIENTED, TELE SR, 3LNC, CONTINUOUS BIOX IN PLACE, RIGHT CHEST MEDIPORT ACCESSED WITH KVO, PAIN MEDICATION CONTINUOUS EVERY 4 HOURS. PLAN TO DC HOME W/DAILY ERTAPENUM INFUSIONS AT AN INFUSION CLINIC.
[2022-03-09] MEDS ORDERED: Acetaminophen650 M1 PO (15:37)
[2022-03-09] MEDS ORDERED: ASPI81CH PO (15:38)
[2022-03-09] MEDS ORDERED: ATOR40TA PO (15:39)
--- NOTE | 2022-03-09 16:41 | NUR ---
PT AWAKE AT START OF SHIFT, RESTING QUIETLY ON BARIATRIC AIR BED. PT ADMITTED WITH UROSEPSIS R/T CHRONIC WEN. PT ALSO WITH COLOSTOMY; PT DOING SELF CARE. PT WITH CHRONIC DECUB ULCERS FROM HOME. PT REPOSITIONED TO SIDES THRU OUT SHIFT TO KEEP OFF BUTTOCKS. PT REPOSITIONING SELF BACK TO BUTTOCKS EACH TIME; NONCOMPLIANT WITH STAYING OFF WOUNDS. PT WITH HIGH NARCOTIC INTAKE, CALLING FOR PAIN MEDICATIONS FREQUENTLY. PT WANTING TO GO HOME TODAY. DR SPENCE NOTIFIED AND CAME TO TO DISCUSS PLAN OF CARE WITH PT. PT TO COMPLETE IV ABX DAILY AT [facility]FUSION CLINIC FOR 7 DAYS. PT TO START TOMORROW AT 1500; APPOINTMENT ARRANGED BY CISO. PT VERBALIZED UNDERSTANDING. D/C INSTRUCTIONS REVIEWED WITH PT. MEDS FAXED TO [facility], PER PT REQUEST. DENIED FURTHER NEEDS. PT ASSISTED OUT IN OWN W/C WITH FAMILY AT .
== END 2022-03-09 16:41 | disposition home or self-care (01) | DRG 698 ==
LOC: ER 00:41 → MEDS 04:52
PROVIDERS: Emergency Medicine; Internal Medicine; ADMIT Family Medicine
PROC: 02HV33Z Insertion of Infusion Device into Superior Vena Cava, Percutaneous Approach (ICD-10-PCS; principal; 2022-03-05)
PROC: 3E03329 Introduction of Other Anti-infective into Peripheral Vein, Percutaneous Approach (ICD-10-PCS; 2022-03-05)
DX: T83.511A Infection and inflammatory reaction due to indwelling urethral catheter, initial encounter (principal); A41.50 Gram-negative sepsis, unspecified; L89.104 Pressure ulcer of unspecified part of back, stage 4; L89.204 Pressure ulcer of unspecified hip, stage 4; L89.313 Pressure ulcer of right buttock, stage 3; L89.513 Pressure ulcer of right ankle, stage 3; R65.20 Severe sepsis without septic shock; G92.8 Other toxic encephalopathy; G82.20 Paraplegia, unspecified; N17.9 Acute kidney failure, unspecified; N39.0 Urinary tract infection, site not specified; N31.9 Neuromuscular dysfunction of bladder, unspecified; I65.22 Occlusion and stenosis of left carotid artery; E11.9 Type 2 diabetes mellitus without complications; I10 Essential (primary) hypertension; K21.9 Gastro-esophageal reflux disease without esophagitis; G89.4 Chronic pain syndrome; G47.33 Obstructive sleep apnea (adult) (pediatric); D63.8 Anemia in other chronic diseases classified elsewhere; Y84.6 Urinary catheterization as the cause of abnormal reaction of the patient, or of later complication, without mention of misadventure at the time of the procedure; Z20.822 Contact with and (suspected) exposure to COVID-19; Z87.39 Personal history of other diseases of the musculoskeletal system and connective tissue; Z93.3 Colostomy status; Z89.612 Acquired absence of left leg above knee; Z98.890 Other specified postprocedural states; Z98.1 Arthrodesis status; S24.103S Unspecified injury at T7-T10 level of thoracic spinal cord, sequela; Z98.2 Presence of cerebrospinal fluid drainage device; Z95.828 Presence of other vascular implants and grafts; Z88.2 Allergy status to sulfonamides; Z88.1 Allergy status to other antibiotic agents; Z88.8 Allergy status to other drugs, medicaments and biological substances; Z79.899 Other long term (current) drug therapy; Z79.891 Long term (current) use of opiate analgesic; Z79.4 Long term (current) use of insulin; Z79.01 Long term (current) use of anticoagulants; Z99.81 Dependence on supplemental oxygen; Z90.49 Acquired absence of other specified parts of digestive tract
CPT/HCPCS: 0241U; 36415; 71045; 76770; 80048; 80053; 80069; 81001; 82803; 82947; 83605; 83735; 85025; 87040; 87077; 87086; 87186; 93005; 93010; 93880; 94762; 96365; 99285-25; A9270; J0696; J1642; J1650; J1815; J2185; J2405; J7040

== ENCOUNTER 2022-03-10 00:30 | Day surgery (SDC) | payer MEDICARE, BC ==
[~2022-03-10 00:30] MED LIST changes: +ASPI81CH PO; +ATOR40TA PO; +Acetaminophen650 M1 PO
== END 2022-03-10 15:12 | disposition home or self-care (01) ==
LOC: ATC 00:30
DX: A41.9 Sepsis, unspecified organism (principal); N39.0 Urinary tract infection, site not specified; Z16.12 Extended spectrum beta lactamase (ESBL) resistance; Z88.8 Allergy status to other drugs, medicaments and biological substances; Z88.1 Allergy status to other antibiotic agents; Z88.2 Allergy status to sulfonamides; I10 Essential (primary) hypertension; N17.9 Acute kidney failure, unspecified; E11.9 Type 2 diabetes mellitus without complications; K21.9 Gastro-esophageal reflux disease without esophagitis; L89.313 Pressure ulcer of right buttock, stage 3; G82.20 Paraplegia, unspecified; N31.9 Neuromuscular dysfunction of bladder, unspecified; G89.4 Chronic pain syndrome
CPT/HCPCS: J1335; J1642

== ENCOUNTER 2022-03-11 00:04 | Day surgery (SDC) | payer MEDICARE, BC | END 2022-03-11 14:43 | disposition home or self-care (01) | LOC: ATC 00:04 | DX: N39.0 Urinary tract infection, site not specified (principal); Z16.12 Extended spectrum beta lactamase (ESBL) resistance; Z88.1 Allergy status to other antibiotic agents; Z88.2 Allergy status to sulfonamides; I10 Essential (primary) hypertension; E11.9 Type 2 diabetes mellitus without complications; G89.4 Chronic pain syndrome; K21.9 Gastro-esophageal reflux disease without esophagitis | CPT/HCPCS: J1335; J1642 ==

== ENCOUNTER 2022-03-12 01:58 | Day surgery (SDC) | payer MEDICARE, BC | END 2022-03-12 15:17 | disposition home or self-care (01) | LOC: ATC 01:58 | DX: N39.0 Urinary tract infection, site not specified (principal); Z16.12 Extended spectrum beta lactamase (ESBL) resistance | CPT/HCPCS: J1335; J1642 ==

== ENCOUNTER 2022-03-14 03:15 | Day surgery (SDC) | payer MEDICARE, BC | END 2022-03-14 14:45 | disposition home or self-care (01) | LOC: ATC 03:15 | DX: A41.9 Sepsis, unspecified organism (principal); N39.0 Urinary tract infection, site not specified; G47.33 Obstructive sleep apnea (adult) (pediatric); N17.9 Acute kidney failure, unspecified; I10 Essential (primary) hypertension; E11.9 Type 2 diabetes mellitus without complications; K21.9 Gastro-esophageal reflux disease without esophagitis; L89.313 Pressure ulcer of right buttock, stage 3; L89.893 Pressure ulcer of other site, stage 3; G82.20 Paraplegia, unspecified; N31.9 Neuromuscular dysfunction of bladder, unspecified; G89.4 Chronic pain syndrome; Z99.81 Dependence on supplemental oxygen; Z88.1 Allergy status to other antibiotic agents; Z88.8 Allergy status to other drugs, medicaments and biological substances | CPT/HCPCS: 96365; J1335; J1642 ==

== ENCOUNTER 2022-03-15 00:06 | Day surgery (SDC) | payer MEDICARE, BC | END 2022-03-15 14:49 | disposition home or self-care (01) | LOC: ATC 00:06 | DX: N39.0 Urinary tract infection, site not specified (principal); Z16.12 Extended spectrum beta lactamase (ESBL) resistance; E11.9 Type 2 diabetes mellitus without complications; G47.33 Obstructive sleep apnea (adult) (pediatric); L89.313 Pressure ulcer of right buttock, stage 3; L89.893 Pressure ulcer of other site, stage 3; I10 Essential (primary) hypertension; R41.82 Altered mental status, unspecified; N17.9 Acute kidney failure, unspecified; A41.9 Sepsis, unspecified organism; L89.513 Pressure ulcer of right ankle, stage 3; S24.103A Unspecified injury at T7-T10 level of thoracic spinal cord, initial encounter; N31.9 Neuromuscular dysfunction of bladder, unspecified; G89.29 Other chronic pain; Z89.522 Acquired absence of left knee; Z79.4 Long term (current) use of insulin; Z99.81 Dependence on supplemental oxygen | CPT/HCPCS: 96365; J1335; J1642 ==

== ENCOUNTER 2022-03-16 02:01 | Day surgery (SDC) | payer MEDICARE, BC | END 2022-03-16 14:41 | disposition home or self-care (01) | LOC: ATC 02:01 | DX: N39.0 Urinary tract infection, site not specified (principal); Z16.12 Extended spectrum beta lactamase (ESBL) resistance | CPT/HCPCS: J1335; J1642 ==

== ENCOUNTER 2022-03-30 16:55 | Inpatient (IN) | payer MEDICARE, BC ==
[~2022-03-30] VITALS: Ht 188 cm; Wt 136.1 kg
[2022-03-30 17:39] LABS: Source, Urine Foley catheter
[2022-03-30 17:43] LABS: Appearance, Urine Turbid (Clear); Bilirubin, Urine Neg (Neg); Blood, Urine 5+ (Neg); Color, Urine Yellow (P-Yellow); Glucose Qualitative, Urine Neg (Neg); Ketones, Urine Neg (Neg); Leukocyte Esterase, Urine 3+ (Neg); Nitrite, Urine Neg (Neg); Protein, Urine 3+ (Neg); Specific Gravity, Urine 1.015 (1.003-1.022); Urobilinogen, Urine NORM (Normal); pH, Urine 6.5 (5.0-8.0)
[2022-03-30 17:50] LABS: Red Blood Cells, Urine TNTC /hpf (0-2); White Blood Cells, Urine TNTC /hpf (0-5)
[2022-03-30 17:51] LABS: Bacteria Mod /hpf; Hyaline Casts 0-2 /lpf (0-2); Squamous Epithelial Cells Rare /hpf (Few); WBC Cast 0-2 /lpf (0)
[2022-03-30 18:22] LABS: Influenza A, PCR NEGATIVE (NEGATIVE); Influenza B, PCR NEGATIVE (NEGATIVE); Resp Syncytial Virus, PCR NEGATIVE (NEGATIVE); SARS-Cov-2 (COVID-19) PCR, MMC NEGATIVE (NEGATIVE)
[2022-03-30 19:00] LABS: BASOPHILS ABSOLUTE AUTO 0.09 K/mm3 (0.00-0.23); BASOPHILS PERCENT AUTO 1 % (0-2); EOSINOPHILS PERCENT AUTO 1 % (0-6); Hematocrit 36.1 % (37.0-53.0); Hemoglobin 11.1 g/dL (13.5-17.5); IMMATURE GRAN ABSOLUTE AUTO 0.09 K/mm3 (0.00-0.10); IMMATURE GRAN PERCENT AUTO 1 % (0-1); LYMPHOCYTES ABSOLUTE AUTO 1.13 K/mm3 (0.84-5.20); LYMPHOCYTES PERCENT AUTO 7 % (21-46); MONOCYTES ABSOLUTE AUTO 0.93 K/mm3 (0.16-1.47); MONOCYTES PERCENT AUTO 6 % (4-13); Mean Corpuscular HGB 27.7 pg (26.0-34.0); Mean Corpuscular HGB Conc 30.7 g/dL (31.5-36.5); Mean Corpuscular Volume 90 fL (80-100); Mean Platelet Volume 9.8 fL (9.1-12.4); NEUTROPHILS ABSOLUTE AUTO 13.36 K/mm3 (1.96-9.15); NEUTROPHILS PERCENT AUTO 84 % (41-73); Platelet Count 363 K/mm3 (150-400); RDW Standard Deviation 49.6 fL (35.1-46.3); Red Blood Cell Count 4.01 M/mm3 (4.30-5.90)
[2022-03-30 19:10] LABS: Albumin/Globulin Ratio 0.8 (0.8-1.8); Bilirubin, Total 0.4 mg/dL (0.1-1.0); Bun/Creatinine Ratio 31.7 (12.0-20.0); Calcium, Blood 8.9 mg/dL (8.5-10.1); Creatinine, Blood 1.2 mg/dL (0.60-1.20)
[2022-03-30] MEDS ORDERED: NARCAN4 M1 (20:44)
[2022-03-30 22:57] LABS: Bun/Creatinine Ratio 30.3 (12.0-20.0); Calcium, Blood 8.5 mg/dL (8.5-10.1); Creatinine, Blood 1.32 mg/dL (0.60-1.20); Potassium, Blood 6.1 mmol/L (3.5-5.5)
--- NOTE | 2022-03-31 01:08 | NUR ---
PATIENT IS A NEW ADMIT FROM THE ED. ED REPORTS HE WAS HERE ON 03/11. AXOX 3 W/CONFUSION AT TIMES AND HEAVY FOUR PERSON TRANSFER FROM [facility] TO BED. EGG SHELL CRATE PROVIDED FOR BED. LEFT LEG AMPUTATION AND INDWELLING WEN CATHETER PRESENT ON ADMIT WITH CREAMY YELLOW URINE PRESENT. CHRONIC DECUBITUS WOUNDS TO SACRUM/HIP LEFT/RIGHT AREAS. PHOTOS IN CHART. HE REPORTS SEEING WOUND CLINIC FOR DRESSINGS CHANGES. ON 3.5L O2 NC BASELINE. MEDIPORT ACCESSED IN ED. RLQ COLOSTOMY. DR COURT SHERIDAN IN ROOM FOR ASSESSMENT. NS STARTED AT 125mL/HR ONE OF TWO BAGS. ORIENTED TO ROOM AND CALL LIGHT SYSTEM. SLEEPING ON/OFF THROUGH ASSESSMENT. WCTM.
[2022-03-31 02:25] LABS: Bun/Creatinine Ratio 30.8 (12.0-20.0); Calcium, Blood 8.4 mg/dL (8.5-10.1); Creatinine, Blood 1.46 mg/dL (0.60-1.20)
--- NOTE | 2022-03-31 03:02 | NUR ---
cH K+ 6.0 ON RECHECK BY LAB. WAS 6.[address] SHERIDAN ORDERED HUMILIN R [address] DIEZ NOW REPORTS TO WAIT FOR NEXT AM LABS. PATIENT REPORTED PAIN AND DR DIEZ ORDERED IV FENTANYL 25-50 MCG Q4 PRN.
--- NOTE | 2022-03-31 04:22 | NUR ---
SHIFT SUMMARY PATIENT MORE AWAKE THAN ADMIT. AXOX 3-4 AND BEDREST WITH LEFT LEG AMPUTATION. INDWELLING WEN CATHETER PRESENT ON ADMIT DRAINING CREAMY YELLOW COLOR URINE. MEDIPORT RU CHEST WITH NS INFUSING AT 125mL/HR BAG ONE OF TWO. IV ABX INFUSED. K+ 6.[address] SHERIDAN ORDERED HUMILIN R 10 UNITS WITH K+ 6.1. DR DIEZ REPORTS TO WAIT FOR AM LABS. REPORTED PAIN X TWO AND PO TYLENOL 650 MG GIVEN AND NEXT IV FENTANYL 50 MCG GIVEN PER EMAR FOR RIGHT ARM/SHOULDER PAIN. WOUND DRESSINGS IN PLACE ON ADMIT TO L/R SACRUM/HIP AREA. VSS/AFEBRILE. HR UP WITH INCREASED PAIN. DENIES CHEST PAIN, SOB, AND N/V. ON 3L O2 NC BASELINE. CALL LIGHT IN REACH. BED IN LOWEST POSITION. WILL CONTINUE TO MONITOR UNTIL DAY SHIFT NURSE ASSUMES CARE.
[2022-03-31 05:51] LABS: BASOPHILS ABSOLUTE AUTO 0.05 K/mm3 (0.00-0.23); BASOPHILS PERCENT AUTO 0 % (0-2); EOSINOPHILS ABSOLUTE AUTO 0.01 K/mm3 (0.00-0.68); EOSINOPHILS PERCENT AUTO 0 % (0-6); Hematocrit 34.5 % (37.0-53.0); Hemoglobin 10.6 g/dL (13.5-17.5); IMMATURE GRAN ABSOLUTE AUTO 0.08 K/mm3 (0.00-0.10); IMMATURE GRAN PERCENT AUTO 1 % (0-1); LYMPHOCYTES PERCENT AUTO 6 % (21-46); MONOCYTES ABSOLUTE AUTO 1.18 K/mm3 (0.16-1.47); MONOCYTES PERCENT AUTO 8 % (4-13); Mean Corpuscular HGB 27.4 pg (26.0-34.0); Mean Corpuscular HGB Conc 30.7 g/dL (31.5-36.5); Mean Corpuscular Volume 89 fL (80-100); Mean Platelet Volume 9.4 fL (9.1-12.4); NEUTROPHILS ABSOLUTE AUTO 12.06 K/mm3 (1.96-9.15); NEUTROPHILS PERCENT AUTO 84 % (41-73); Platelet Count 345 K/mm3 (150-400); RDW Coefficient Variation 15.5 % (11.7-14.2); RDW Standard Deviation 50.6 fL (35.1-46.3); Red Blood Cell Count 3.87 M/mm3 (4.30-5.90); White Blood Cell Count 14.28 K/mm3 (4.00-11.30)
[2022-03-31 06:24] LABS: Bun/Creatinine Ratio 28.4 (12.0-20.0); Calcium, Blood 8.5 mg/dL (8.5-10.1); Creatinine, Blood 1.55 mg/dL (0.60-1.20); Potassium, Blood 5.5 mmol/L (3.5-5.5)
--- NOTE | 2022-03-31 17:02 | NUR ---
DAYSHIFT SUMMARY Patient admitted for Hyperkalemia, K+ is now 5.5, patient denies symptoms of SOB, chest pain, N/V. Visible muscle spasms in arms/hands. This morning patient was restless, complaining of pain. Transferred patient to airbed. Med rec completed & home meds given, patient appears comfortable for the rest of the shift. Mediport accessed, NS infusing KVO. provided instructions on wound care, applied alginate dress & mepilex to wound on buttocks. Large amount of yellow exudate on old dressing. Chronic min in palce, draining to gravity. Ostomy appliance CDI, patients self manages. Vitals stable. Possible discharge tomorrow, will continue to plan of care.
--- NOTE | 2022-04-01 04:14 | NUR ---
SHIFT SUMMARY PATIENT HAD NO ACUTE CHANGES. AXOX 4 AND BEDREST. LEFT LEG AMPUTATION. CHRONIC WEN DRAINING TO GRAVITY. OSTOMY APPLIANCE CDI. WOUND DRESSINGS CDI. ON 3L O2 NC BASELINE. MEDIPORT INTACT WITH NS KVO INFUSING. CBG 192. CHRONIC PAIN WITH SCHEDULE MS CONTIN 30 MG. SLEPT MOST OF SHIFT. CALL LIGHT IN REACH. BED IN LOWEST POSITION. WILL CONTINUE TO MONITOR UNTIL DAY SHIFT NURSE ASSUMES CARE.
[2022-04-01 04:47] LABS: BASOPHILS ABSOLUTE AUTO 0.06 K/mm3 (0.00-0.23); BASOPHILS PERCENT AUTO 1 % (0-2); EOSINOPHILS ABSOLUTE AUTO 0.42 K/mm3 (0.00-0.68); EOSINOPHILS PERCENT AUTO 5 % (0-6); Hematocrit 28.2 % (37.0-53.0); Hemoglobin 8.7 g/dL (13.5-17.5); IMMATURE GRAN ABSOLUTE AUTO 0.05 K/mm3 (0.00-0.10); IMMATURE GRAN PERCENT AUTO 1 % (0-1); LYMPHOCYTES ABSOLUTE AUTO 0.43 K/mm3 (0.84-5.20); LYMPHOCYTES PERCENT AUTO 5 % (21-46); MONOCYTES ABSOLUTE AUTO 0.43 K/mm3 (0.16-1.47); MONOCYTES PERCENT AUTO 5 % (4-13); Mean Corpuscular HGB 28.1 pg (26.0-34.0); Mean Corpuscular HGB Conc 30.9 g/dL (31.5-36.5); Mean Corpuscular Volume 91 fL (80-100); Mean Platelet Volume 9.5 fL (9.1-12.4); NEUTROPHILS ABSOLUTE AUTO 7.98 K/mm3 (1.96-9.15); NEUTROPHILS PERCENT AUTO 85 % (41-73); Platelet Count 272 K/mm3 (150-400); RDW Coefficient Variation 15.8 % (11.7-14.2); RDW Standard Deviation 51.9 fL (35.1-46.3); White Blood Cell Count 9.37 K/mm3 (4.00-11.30)
[2022-04-01 05:08] LABS: Calcium, Blood 8.3 mg/dL (8.5-10.1); Creatinine, Blood 1.59 mg/dL (0.60-1.20); Potassium, Blood 4.7 mmol/L (3.5-5.5)
[2022-04-01 13:07] LABS: Percent Saturation 14.1 % (20.0-50.0)
--- NOTE | 2022-04-01 18:03 | NUR ---
MAKES NEEDS KNWON, VERY TREMOROUS, FAMILY ASSISTED WITH EATING, ALERT AND ORIENTED, WEN CATHETER CARE AND FLUSHED ALVES OPAQUE FLUID THIN, REQUEST PAIN MEDICATIONS WHEN NEEDED, PLEASANT TO CARE, CALL LIGHT WITH IN REACH
--- NOTE | 2022-04-02 04:14 | NUR ---
SHIFT SUMMARY PATIENT HAD NO ACUTE CHANGES OBSERVED. AXO X4 AND BEDREST. CHRONIC WEN PATENT AND DRAINING TO GRAVITY ALVES OPAQUE THIN FLUID. OSTOMY INTACT. MEDIPORT INTACT NS KVO INFUSING. RECEIVED SCHEDULE MS CONTIN 30 MG FOR CHRONIC ARM/SHOULDER PAIN. ON 3L O2 NC BASELINE. VSS/AFEBRILE. DENIES CHEST PAIN, SOB, AND N/V. CALL LIGHT IN REACH. BED IN LOWEST POSITION. WILL CONTINUE TO MONITOR UNTIL DAY SHIFT NURSE ASSUMES CARE.
[2022-04-02 05:04] LABS: BASOPHILS ABSOLUTE AUTO 0.06 K/mm3 (0.00-0.23); BASOPHILS PERCENT AUTO 1 % (0-2); EOSINOPHILS ABSOLUTE AUTO 0.62 K/mm3 (0.00-0.68); EOSINOPHILS PERCENT AUTO 8 % (0-6); Hematocrit 27.2 % (37.0-53.0); Hemoglobin 8.2 g/dL (13.5-17.5); IMMATURE GRAN ABSOLUTE AUTO 0.07 K/mm3 (0.00-0.10); IMMATURE GRAN PERCENT AUTO 1 % (0-1); LYMPHOCYTES ABSOLUTE AUTO 0.82 K/mm3 (0.84-5.20); LYMPHOCYTES PERCENT AUTO 11 % (21-46); MONOCYTES ABSOLUTE AUTO 0.42 K/mm3 (0.16-1.47); MONOCYTES PERCENT AUTO 5 % (4-13); Mean Corpuscular HGB 27.5 pg (26.0-34.0); Mean Corpuscular HGB Conc 30.1 g/dL (31.5-36.5); Mean Corpuscular Volume 91 fL (80-100); Mean Platelet Volume 9.6 fL (9.1-12.4); NEUTROPHILS ABSOLUTE AUTO 5.72 K/mm3 (1.96-9.15); NEUTROPHILS PERCENT AUTO 74 % (41-73); Platelet Count 276 K/mm3 (150-400); RDW Coefficient Variation 15.3 % (11.7-14.2); RDW Standard Deviation 51.1 fL (35.1-46.3); Red Blood Cell Count 2.98 M/mm3 (4.30-5.90); White Blood Cell Count 7.71 K/mm3 (4.00-11.30)
[2022-04-02 05:35] LABS: Bun/Creatinine Ratio 42.7 (12.0-20.0); Calcium, Blood 8.3 mg/dL (8.5-10.1); Creatinine, Blood 1.17 mg/dL (0.60-1.20); Potassium, Blood 4.4 mmol/L (3.5-5.5)
--- NOTE | 2022-04-02 16:39 | NUR ---
WOUND CARE PT IS KNOWN TO THIS RN FROM PREVIOUS ADMISSIONS. PT IS ON AIR FLUIDIZED MATRESS. WOUND PHOTOS AND ASSESSMENT IN HARD CHART. [facility] PT TOLERATED DRESSING CHANGES WELL.
--- NOTE | 2022-04-02 17:03 | NUR ---
SHIFT SUMMARY A&OX4, COOPERATIVE WITH CARE AND PLEASANT. NO ACUTE CHANGES DURING THIS SHIFT. PT TREATED FOR 02/03 HEADACHE PER EMAR PROTOCOL. PT RECEIVED IRON INFUSION. WOUND CARE COMPLETED BY SHARAN FROM WOUND CLINIC. DENIES SOB OR COUGH. CBG'S BETWEEN 90-156 DURING THIS SHIFT. OSTOMY IN PLACE, CDI, OUTPUT WNL. CHRONIC WEN CLEAN AND PATENT, DRAINING YELLOW - OPAQUE YELLOW URINE. PT PARALYZED FROM T7 DOWN. PT CURRENTLY COMFORTABLE AND RESTING WITH CALL LIGHT WITHIN REACH.
[2022-04-03 05:27] LABS: BASOPHILS ABSOLUTE AUTO 0.04 K/mm3 (0.00-0.23); BASOPHILS PERCENT AUTO 1 % (0-2); EOSINOPHILS ABSOLUTE AUTO 0.67 K/mm3 (0.00-0.68); EOSINOPHILS PERCENT AUTO 10 % (0-6); Hematocrit 28.9 % (37.0-53.0); Hemoglobin 8.6 g/dL (13.5-17.5); IMMATURE GRAN PERCENT AUTO 2 % (0-1); LYMPHOCYTES PERCENT AUTO 16 % (21-46); MONOCYTES ABSOLUTE AUTO 0.47 K/mm3 (0.16-1.47); MONOCYTES PERCENT AUTO 7 % (4-13); Mean Corpuscular HGB Conc 29.8 g/dL (31.5-36.5); Mean Corpuscular Volume 91 fL (80-100); Mean Platelet Volume 9.6 fL (9.1-12.4); NEUTROPHILS ABSOLUTE AUTO 4.19 K/mm3 (1.96-9.15); NEUTROPHILS PERCENT AUTO 65 % (41-73); Platelet Count 307 K/mm3 (150-400); RDW Coefficient Variation 15.1 % (11.7-14.2); Red Blood Cell Count 3.18 M/mm3 (4.30-5.90); White Blood Cell Count 6.47 K/mm3 (4.00-11.30)
--- NOTE | 2022-04-03 05:32 | NUR ---
Shift Summary Pt c/o constant pain, especially behind shoulers. Rcvd scheduled and PRN morphine. On contact precautions for ESBL in urine. Chronic min in place a patent, draining cloudy urine. Pt has mediport running NS @ [facility], also rcving IV ABX. On 3L O2 NC. On bedrest d/t paralysis from T7 down. Periodic turns to keep pressure off sores on his bottom. AOx4, VSS, pleasant and cooperative.
[2022-04-03 05:35] LABS: Bun/Creatinine Ratio 43.8 (12.0-20.0); Calcium, Blood 8.7 mg/dL (8.5-10.1); Creatinine, Blood 0.84 mg/dL (0.60-1.20); Potassium, Blood 4.5 mmol/L (3.5-5.5)
--- NOTE | 2022-04-03 18:33 | NUR ---
SHIFT SUMMARY A&OX4, COOPERATIVE WITH CARE. LUNG SOUNDS DIMINISHED T/O, DENIES SOB OR COUGH. PT COMPLAINED OF 10/10 NERVE PAIN BEHIND BILATERAL SHOULDERS DURING THIS SHIFT, MEDICATED PER EMAR PROTOCOL. WOUND CARE TO BILATERAL BUTTOCKS AND SACRUM COMPLETED THIS SHIFT. WOUNDS DRAINED THROUGH THE ABD PADS AND SATURATED THE CHUCKS PADS. WEN ALSO NOTED TO LEAK THROUGHOUT SHIFT. CONCERNS OF THE [facility] BALLOONS "POPPING" PER PATIENT. CHECKED BALLOONS FOR PATENCY, REINFLATED PER [facility] INSTRUCTIONS. NO ACUTE CHANGES DURING THIS SHIFT. PATIENT CURRENTLY SLEEPING WITH CALL LIGHT IN REACH.
--- NOTE | 2022-04-04 05:20 | NUR ---
Shift Summary Pt Moreno leaking small amounts of urine which PT states is normal. Day shift nurses tried to trouble shoot Moreno. Moreno still patent and draining most of the yellow urine. Dressings on R buttocks was wet and changed. Bedding changed as needed. PT c/o of severe continuous pain in shoulders and head, medicated per EMAR. Pt had difficulty sleeping, spoke to hospitalist who ordered PRN Melatonin. Pt awake most of the night. VSS, AOx4, pleasant and cooperative with care.
--- NOTE | 2022-04-04 15:58 | NUR ---
NOTE PT RESTING QUIETLY. CHRONIC WOUNDS CD&I. WEN LEAKS FREQUENTLY. HE HAS A DOUBLE BALLOON WEN. BLADDER IRRIGATION DONE. PT TOLERATED WELL. VISITED WITH PT ABOUT BLADDER IRRAGATION AT HOME IF THE DOCTORS DISCHARGE. WOUND CARE DONE. GOOD APPETITE. LOOKING FORWAARD TO GOING HOME. CONTINUE POC.
--- NOTE | 2022-04-04 17:44 | NUR ---
MET WITH PT, REPORTS HE IS SUPPOSED TO BE DCD TOMORROW TO GO HOME WITH SHARON TO HELP WITH BLADDER IRRIGATION AND WOUND CARE. PT REPORTS HE IS DOING OK NOW, SYMPTOMS ARE MANAGED AND HAS NO QUESTIONS OR CONCERNS AT THIS TIME. PALIIATIVE CARE WILL CONT TO BE AVAILABLE FOR PT NEEDS.
--- NOTE | 2022-04-05 06:35 | NUR ---
SHIFT SUMMARY; NO ACUTE CHANGES OVERNIGHT. THE PT RESTED IN BED T/O THE NIGHT. THE PT IS AXO X4 AND ON BEDREST. THE PTS WEN DISLODGED SOMETIME DURING THE NIGHT AND ONE OF THE TWO BALLOONS IN THE WEN HEAD BURST. THEREFORE, A COMPLETE BED CHANGE WAS COMPLETED WELL WOUND CARE AND A NEW WEN WAS PLACED. A STANDARD 16FR WEN CATHETER WAS PLACED PER PT REQUEST. PT STATES HE DOES NOT WANT A 2 BALLOON CATHETER HE BELIEVES THAT THE ANTIBIOTIC TREATMENT HE RECIEVES EACH DAY IS NOT COMPATITABLE WITH THIS WEN. PT REQUESTED PRN PAIN MEDS ONCE THIS AM FOR HIS SHOULDERS. THE PT HAS 3L NC ON WHICH IS HIS BASELINE. THE PT DENIES ANY SOB, CHEST PAIN/PRESSURE THIS SHIFT. TKO IS RUNNING THROUGH THE PTS MEDIPORT ON THE R CHEST WALL. CURRENTLY THE PT IS SLEEPING IN BED WITH THE BED IN THE LOWEST POSITION, ALL FOUR BED RAILS UP PER PTS REQUEST AND THE CALL LIGHT WITHIN REACH.
--- NOTE | 2022-04-05 18:34 | NUR ---
WEN HAND LAUNDERER REPLACED HIS WEN WITH A STANDARD 16FR 10 ML CATHETER. HIS PRIOR CATHETER WITHTHE DOUBLE BALLOON LEAKED SIGNIFICANTLY. TODAY HIS WEN HAS NOT LEAKED. DRAINED A SIGNIFICANT AMOUNT OF YELLOW URINE WITH SEDIMENT. NO NEED TO CHANGE HIS HIP DRESSINGS D/T URINE LEAKAGE TODAY. CONTINUE POC.
--- NOTE | 2022-04-06 05:43 | NUR ---
SHIFT UNREMARKABLE. PT TOOK 2100 MEDICATIONS WITHOUT DIFFICULTY. REQUESTED 1 PRN PAIN MED THEN SLEPT THROUGH MOST OF REMAINDER OF SHIFT. DRESSING ON ANKLE CHANGED EARLY IN SHIFT. PT TOLERATED WELL. CALL LIGHT LEFT WITHIN REACH.
[2022-04-06] MEDS ORDERED: AMIKACIN S (11:32)
[2022-04-06] MEDS ORDERED: VISBIOME 112.51 EACH PO (11:35)
[2022-04-06] MEDS ORDERED: MELATONIN5 M1 PO (11:35)
[2022-04-06] MEDS ORDERED: JUVEN PACKET1 EAC3 PO (11:35)
--- NOTE | 2022-04-06 16:08 | NUR ---
DISCHARGE- PT DISCHARGED TO HOME. PT ALERT AND ORIENTEDX4 AND 3L NC. PT LEFT WITH OWN WHEELCHAIR AND ACCOMPANIED BY HIS AND A FRIEND. PT WOUND CARE COMPLETED BEFORE DISCHARGE. PT EDCUATED ON DISCHARGE INSTRUCTIONS.
== END 2022-04-06 16:06 | DRG 871 ==
LOC: ER 16:55 → MEDS 16:56
PROVIDERS: Emergency Medicine; Internal Medicine; Student in an Organized Health Care Education/Training Program; ADMIT Student in an Organized Health Care Education/Training Program
PROC: 3E03329 Introduction of Other Anti-infective into Peripheral Vein, Percutaneous Approach (ICD-10-PCS; principal; 2022-03-30)
PROC: 5A09357 Assistance with Respiratory Ventilation, Less than 24 Consecutive Hours, Continuous Positive Airway Pressure (ICD-10-PCS; 2022-03-30)
DX: A41.4 Sepsis due to anaerobes (principal); G92.8 Other toxic encephalopathy; L89.313 Pressure ulcer of right buttock, stage 3; L89.893 Pressure ulcer of other site, stage 3; L89.513 Pressure ulcer of right ankle, stage 3; G82.20 Paraplegia, unspecified; N39.0 Urinary tract infection, site not specified; N17.9 Acute kidney failure, unspecified; E66.2 Morbid (severe) obesity with alveolar hypoventilation; F11.20 Opioid dependence, uncomplicated; Z16.12 Extended spectrum beta lactamase (ESBL) resistance; E87.5 Hyperkalemia; G89.4 Chronic pain syndrome; N31.9 Neuromuscular dysfunction of bladder, unspecified; E86.0 Dehydration; D50.9 Iron deficiency anemia, unspecified; E11.51 Type 2 diabetes mellitus with diabetic peripheral angiopathy without gangrene; N18.30 Chronic kidney disease, stage 3 unspecified; E11.22 Type 2 diabetes mellitus with diabetic chronic kidney disease; D63.1 Anemia in chronic kidney disease; I12.9 Hypertensive chronic kidney disease with stage 1 through stage 4 chronic kidney disease, or unspecified chronic kidney disease; Z20.822 Contact with and (suspected) exposure to COVID-19; B96.20 Unspecified Escherichia coli [E. coli] as the cause of diseases classified elsewhere; Z87.39 Personal history of other diseases of the musculoskeletal system and connective tissue; Z93.3 Colostomy status; S24.103S Unspecified injury at T7-T10 level of thoracic spinal cord, sequela; Z99.81 Dependence on supplemental oxygen; Z79.4 Long term (current) use of insulin; Z98.2 Presence of cerebrospinal fluid drainage device; Z89.612 Acquired absence of left leg above knee; Z98.890 Other specified postprocedural states; Z98.1 Arthrodesis status; Z95.828 Presence of other vascular implants and grafts; Z74.01 Bed confinement status; Z88.2 Allergy status to sulfonamides; Z88.1 Allergy status to other antibiotic agents; Z88.8 Allergy status to other drugs, medicaments and biological substances; Z79.899 Other long term (current) drug therapy; Z79.01 Long term (current) use of anticoagulants; Z79.82 Long term (current) use of aspirin; Z79.02 Long term (current) use of antithrombotics/antiplatelets; Z68.38 Body mass index [BMI] 38.0-38.9, adult
CPT/HCPCS: 0241U; 71045; 80048; 80053; 81001; 82728; 82947; 83540; 83550; 83605; 84145; 85025; 87040; 87077; 87086; 87186; 93005; 93010; 96365; 96375; 99285-25; A9270; G0378; J0278; J1642; J1650; J1815; J1940; J2185; J2916; J3010; J7030; J7050

== ENCOUNTER → 2022-04-17 | Outpatient (CLI) | payer MEDICARE, BC ==
[~2022-04-17] MED LIST changes: +AMIKACIN S; +JUVEN PACKET1 EAC3 PO; +MELATONIN5 M1 PO; +NARCAN4 M1; +VISBIOME 112.51 EACH PO
[2022-04-17 18:04] LABS: Appearance, Urine Turbid (Clear); Bilirubin, Urine Neg (Neg); Blood, Urine 4+ (Neg); Glucose Qualitative, Urine Neg (Neg); Ketones, Urine Neg (Neg); Leukocyte Esterase, Urine 3+ (Neg); Nitrite, Urine Neg (Neg); Protein, Urine 3+ (Neg); Urobilinogen, Urine NORM (Normal); pH, Urine 6.5 (5.0-8.0)
[2022-04-17 18:34] LABS: Color, Urine Pale Yellow (P-Yellow)
[2022-04-17 18:36] LABS: White Blood Cells, Urine TNTC /hpf (0-5)
[2022-04-17 18:37] LABS: Bacteria Many /hpf; Squamous Epithelial Cells Rare /hpf (Few)
== END | disposition home or self-care (01) ==
LOC: LAB 11:20 → LAB SHORT 11:20
PROVIDERS: Nurse Practitioner Family
DX: N39.0 Urinary tract infection, site not specified (principal)
CPT/HCPCS: 81001; 87077; 87086; 87186

== ENCOUNTER 2022-05-03 00:33 | Day surgery (SDC) | payer MEDICARE, BC ==
[2022-05-03 15:08] LABS: BASOPHILS ABSOLUTE AUTO 0.06 K/mm3 (0.00-0.23); BASOPHILS PERCENT AUTO 1 % (0-2); EOSINOPHILS ABSOLUTE AUTO 0.72 K/mm3 (0.00-0.68); EOSINOPHILS PERCENT AUTO 7 % (0-6); Hematocrit 32.1 % (37.0-53.0); Hemoglobin 9.8 g/dL (13.5-17.5); IMMATURE GRAN PERCENT AUTO 2 % (0-1); LYMPHOCYTES PERCENT AUTO 18 % (21-46); MONOCYTES ABSOLUTE AUTO 0.62 K/mm3 (0.16-1.47); MONOCYTES PERCENT AUTO 6 % (4-13); Mean Corpuscular HGB 27.5 pg (26.0-34.0); Mean Corpuscular HGB Conc 30.5 g/dL (31.5-36.5); Mean Corpuscular Volume 90 fL (80-100); Mean Platelet Volume 9.4 fL (9.1-12.4); NEUTROPHILS ABSOLUTE AUTO 6.66 K/mm3 (1.96-9.15); NEUTROPHILS PERCENT AUTO 66 % (41-73); Platelet Count 317 K/mm3 (150-400); RDW Coefficient Variation 15.3 % (11.7-14.2); RDW Standard Deviation 50.3 fL (35.1-46.3); Red Blood Cell Count 3.57 M/mm3 (4.30-5.90); White Blood Cell Count 10.06 K/mm3 (4.00-11.30)
[2022-05-03 15:31] LABS: Iron Serum 56 ug/dL (65-175); Total Iron Binding Capacity 203 ug/dL (250-450)
[2022-05-03 15:32] LABS: Alanine Aminotransfer (ALT/SGP 17 U/L (12-78); Albumin, Blood 2.7 g/dL (3.4-5.0); Albumin/Globulin Ratio 0.7 (0.8-1.8); Alk Phos 105 U/L (50-136); Anion Gap 3 mmol/L (6-16); Aspartate Aminotrans (AST/SGOT 12 U/L (12-37); Bilirubin, Total 0.2 mg/dL (0.1-1.0); Blood Urea Nitrogen 32 mg/dL (8-24); Bun/Creatinine Ratio 28.8 (12.0-20.0); CHOL/HDL RATIO 4.9; CO2, Blood 30 mmol/L (21-32); Calcium, Blood 8.5 mg/dL (8.5-10.1); Chloride, Blood 106 mmol/L (98-108); Cholesterol 170 mg/dL (50-200); Creatinine, Blood 1.11 mg/dL (0.60-1.20); Ferritin, Serum 501 ng/mL (26-388); Globulin, Blood 3.8 g/dL (2.2-4.0); Glomerular Filtration Rate 72 (60-); Glucose, Blood 163 mg/dL (70-99); HDL Cholesterol 35 mg/dL (>39); LDL/HDL RATIO 2.4; Low Density Lipoprotein Chol 83 mg/dL (0-110); Percent Saturation 27.6 % (20.0-50.0); Potassium, Blood 4.8 mmol/L (3.5-5.5); Sodium, Blood 139 mmol/L (136-145); Total Protein, Blood 6.5 g/dL (6.4-8.2); Triglycerides 261 mg/dL (30-160); Very Low Density Lipoprot Chol 52 mg/dL (6-32)
== END 2022-05-03 14:55 | disposition home or self-care (01) ==
LOC: ATC 00:33
PROVIDERS: Nurse Practitioner Family
DX: T83.511A Infection and inflammatory reaction due to indwelling urethral catheter, initial encounter (principal); E11.42 Type 2 diabetes mellitus with diabetic polyneuropathy; Z79.4 Long term (current) use of insulin; I10 Essential (primary) hypertension; Z88.1 Allergy status to other antibiotic agents; Z88.2 Allergy status to sulfonamides; G82.20 Paraplegia, unspecified; T14.8XXS Other injury of unspecified body region, sequela; G89.4 Chronic pain syndrome
CPT/HCPCS: 36591; 80053; 80061; 82728; 83036; 83540; 83550; 85025; J1642

== ENCOUNTER 2022-05-27 17:41 | Inpatient (IN) | payer MEDICARE, BC ==
[~2022-05-27] VITALS: Ht 182.9 cm; Wt 161.2 kg
[~2022-05-27 17:41] MED LIST changes: -AMIKACIN S; +AMIKACIN S BLADIN
[2022-05-27 18:50] LABS: BASOPHILS ABSOLUTE AUTO 0.08 K/mm3 (0.00-0.23); BASOPHILS PERCENT AUTO 1 % (0-2); EOSINOPHILS ABSOLUTE AUTO 0.15 K/mm3 (0.00-0.68); EOSINOPHILS PERCENT AUTO 1 % (0-6); Hematocrit 31.5 % (37.0-53.0); Hemoglobin 9.7 g/dL (13.5-17.5); IMMATURE GRAN ABSOLUTE AUTO 0.14 K/mm3 (0.00-0.10); IMMATURE GRAN PERCENT AUTO 1 % (0-1); LYMPHOCYTES ABSOLUTE AUTO 0.95 K/mm3 (0.84-5.20); LYMPHOCYTES PERCENT AUTO 6 % (21-46); MONOCYTES ABSOLUTE AUTO 1.03 K/mm3 (0.16-1.47); MONOCYTES PERCENT AUTO 6 % (4-13); Mean Corpuscular HGB 28.1 pg (26.0-34.0); Mean Corpuscular HGB Conc 30.8 g/dL (31.5-36.5); Mean Corpuscular Volume 91 fL (80-100); Mean Platelet Volume 9.8 fL (9.1-12.4); NEUTROPHILS ABSOLUTE AUTO 14.69 K/mm3 (1.96-9.15); NEUTROPHILS PERCENT AUTO 86 % (41-73); Platelet Count 409 K/mm3 (150-400); RDW Standard Deviation 50.2 fL (35.1-46.3); Red Blood Cell Count 3.45 M/mm3 (4.30-5.90); White Blood Cell Count 17.04 K/mm3 (4.00-11.30)
[2022-05-27 18:53] LABS: Source, Urine Straight Cath
[2022-05-27 18:59] LABS: Appearance, Urine Cloudy (Clear); Bilirubin, Urine Neg (Neg); Blood, Urine 5+ (Neg); Color, Urine Yellow (P-Yellow); Glucose Qualitative, Urine Neg (Neg); Ketones, Urine Neg (Neg); Leukocyte Esterase, Urine 3+ (Neg); Nitrite, Urine Neg (Neg); Protein, Urine 2+ (Neg); Urobilinogen, Urine NORM (Normal); pH, Urine 6.5 (5.0-8.0)
[2022-05-27 19:00] LABS: Influenza A, PCR NEGATIVE (NEGATIVE); Influenza B, PCR NEGATIVE (NEGATIVE); Resp Syncytial Virus, PCR NEGATIVE (NEGATIVE); SARS-Cov-2 (COVID-19) PCR, MMC NEGATIVE (NEGATIVE)
[2022-05-27 19:01] LABS: International Normalized Ratio 1.01; Prothrombin Time Results 10.6 Sec (9.7-11.5)
[2022-05-27 19:03] LABS: Magnesium, Blood 2.5 mg/dL (1.6-2.4)
[2022-05-27 19:04] LABS: Albumin, Blood 2.6 g/dL (3.4-5.0); Albumin/Globulin Ratio 0.6 (0.8-1.8); Bilirubin, Direct 0.1 mg/dL (0.0-0.3); Bilirubin, Indirect 0.3 mg/dL (0.1-0.7); Bilirubin, Total 0.4 mg/dL (0.1-1.0); Calcium, Blood 8.8 mg/dL (8.5-10.1); Creatinine, Blood 2.35 mg/dL (0.60-1.20); Globulin, Blood 4.2 g/dL (2.2-4.0); Phosphorus, Blood 4.8 mg/dL (2.5-4.9); Total Protein, Blood 6.8 g/dL (6.4-8.2)
[2022-05-27 19:06] LABS: Potassium, Blood 6.4 mmol/L (3.5-5.5)
[2022-05-27 19:06] LABS: Bacteria Many /hpf; Squamous Epithelial Cells Rare /hpf (Few); White Blood Cells, Urine 50-100 /hpf (0-5)
[2022-05-27 19:07] LABS: Hyaline Casts 0-2 /lpf (0-2); Renal Epithelial Rare /hpf (0-Rare)
[2022-05-27 21:20] VITALS: BP 160/65
[2022-05-27 22:00] VITALS: BP 156/68
[2022-05-27 23:00] VITALS: BP 129/48
[2022-05-28] VITALS: BP 115/50
--- NOTE | 2022-05-28 00:59 | NUR ---
ASSUMPTION OF CARE NOTE RECEIVED REPORT FROM AC PRECAIDO RN IN ED. PT ARRIVED TO PCU 18 AROUND 2114 ON 05/27/22. PT'S MENTATION WAS VERY LETHARGIC AND SLOW TO ANSWER SOME QUESTIONS OTHER THEN INTERMITTENT GROANING. A/Ox2 WITH CONFUSION, BUT IS ABLE TO ANSWER SOME QUESTIONS APPROPRIATLEY. ON 3L OF O2 VIA NC WITH SOB NOTED WHEN LAYING FLAT OR ON RIGHT SIDE. PT WAS SR IN THE 90'S WITH NO CP OR PRESSURE REPORTED AT THIS TIME. BP WAS ELEVATED, BUT LIKELY WAS PAIN RELATED. PAIN HAS BEEN MANAGED PER EMAR. CHRONIC FOELY IN PLACE, PATENT AND DRAINING CLOUDY/ELINA COLORED URINE TO GRAVITY. WEN BAG REPLACED IN ED, BUT CATH ITSELF WAS NOT CHANGED. SPOUSE OF PT IS PRIMARY CAREGIVER AND STATES "HIS CHRONIC CATH IS SPECIAL AND THAT HAS TWO BALLOONS TO PREVENT LEAKAGE". DISCUSS WITH STOGIE PACKER LAUREN WHO SUGGESTED FAM BRING IN REPLACEMENT CATH FOR PLACEMENT IN THE AM. FAM NOTIFIED BEFORE SHE LEFT TO BRING IN EXTRA CATH FOR REPLACEMENT. SEE ADMISSION ASSESSMENT FOR MORE DETAIL. WILL CONTINUE TO PROCESS MD ORDERS.
[2022-05-28 01:10] VITALS: BP 115/64
[2022-05-28 01:50] LABS: Albumin, Blood 2.3 g/dL (3.4-5.0); Anion Gap 0 mmol/L (6-16); Blood Urea Nitrogen 56 mg/dL (8-24); CO2, Blood 32 mmol/L (21-32); Calcium, Blood 8.4 mg/dL (8.5-10.1); Chloride, Blood 101 mmol/L (98-108); Creatinine, Blood 2.33 mg/dL (0.60-1.20); Glomerular Filtration Rate 30 (60-); Glucose, Blood 226 mg/dL (70-99); Phosphorus, Blood 4.8 mg/dL (2.5-4.9); Potassium, Blood 6.8 mmol/L (3.5-5.5); Sodium, Blood 133 mmol/L (136-145)
[2022-05-28 03:36] VITALS: BP 162/42
[2022-05-28 05:17] LABS: BASOPHILS ABSOLUTE AUTO 0.04 K/mm3 (0.00-0.23); BASOPHILS PERCENT AUTO 0 % (0-2); EOSINOPHILS ABSOLUTE AUTO 0.01 K/mm3 (0.00-0.68); EOSINOPHILS PERCENT AUTO 0 % (0-6); Hematocrit 29.7 % (37.0-53.0); Hemoglobin 8.9 g/dL (13.5-17.5); IMMATURE GRAN ABSOLUTE AUTO 0.14 K/mm3 (0.00-0.10); IMMATURE GRAN PERCENT AUTO 1 % (0-1); LYMPHOCYTES ABSOLUTE AUTO 0.85 K/mm3 (0.84-5.20); LYMPHOCYTES PERCENT AUTO 5 % (21-46); MONOCYTES ABSOLUTE AUTO 1.31 K/mm3 (0.16-1.47); MONOCYTES PERCENT AUTO 8 % (4-13); Mean Corpuscular HGB 27.6 pg (26.0-34.0); Mean Corpuscular Volume 92 fL (80-100); Mean Platelet Volume 9.7 fL (9.1-12.4); NEUTROPHILS ABSOLUTE AUTO 14.57 K/mm3 (1.96-9.15); NEUTROPHILS PERCENT AUTO 86 % (41-73); Platelet Count 342 K/mm3 (150-400); RDW Coefficient Variation 15.4 % (11.7-14.2); RDW Standard Deviation 51.4 fL (35.1-46.3); Red Blood Cell Count 3.22 M/mm3 (4.30-5.90); White Blood Cell Count 16.92 K/mm3 (4.00-11.30)
[2022-05-28 05:39] LABS: Bun/Creatinine Ratio 23.7 (12.0-20.0); Calcium, Blood 8.7 mg/dL (8.5-10.1); Creatinine, Blood 2.36 mg/dL (0.60-1.20); Potassium, Blood 6.8 mmol/L (3.5-5.5)
[2022-05-28 07:28] VITALS: BP 132/62
[2022-05-28 09:38] LABS: Bun/Creatinine Ratio 22.1 (12.0-20.0); Creatinine, Blood 2.53 mg/dL (0.60-1.20)
[2022-05-28 12:15] VITALS: BP 143/67
[2022-05-28 14:14] LABS: Bun/Creatinine Ratio 24.7 (12.0-20.0); Calcium, Blood 8.6 mg/dL (8.5-10.1); Creatinine, Blood 2.75 mg/dL (0.60-1.20); Potassium, Blood 6.1 mmol/L (3.5-5.5)
--- NOTE | 2022-05-28 16:33 | NUR ---
SHIFT SUMMARY: PT CONTINUES LETHARGIC, SLOW TO AROUSE TO STAFF IN ROOM, ORIENTED x3, ANSWERS QUESTIONS APPROPRIATELY AND COOPERATIVE W/CARE, BUT DOES FALL BACK TO SLEEP QUICKLY. O2 SATS >92% ON BASELINE 3 L/MIN NC, IRREGULAR BREATHING PATTERN AT TIMES, BUT PT DENIES SOB. SR W/BBB ON MONITOR, RATE 90s, PT DENIES CP. COLOSTOMY TO L LOWER QUADRANT W/MINIMAL OUTPUT THIS SHIFT. CHRONIC INDWELLING WEN CATHETER IN PLACE, PATENT, DRAINING CLOUDY ELINA COLORED URINE TO GRAVITY. WOUND CONSULTATION ORDERED FOR WOUNDS TO HIPS/BUTTOCKS AND R FOOT. PT MEDICATED PER EMAR FOR ELEVATED TEMPERATURE AND POTASSIUM LEVELS. FLUIDS INFUSING PER ORDER. WILL CONTINUE TO MONITOR AND TREAT ACCORDINGLY UNTIL CHANGE OF SHIFT.
[2022-05-28 22:27] LABS: Bun/Creatinine Ratio 22.9 (12.0-20.0); Creatinine, Blood 3.1 mg/dL (0.60-1.20); Potassium, Blood 6.5 mmol/L (3.5-5.5)
[2022-05-29] VITALS (16 sets, daily range): BP systolic 99–153; BP diastolic 39–68
[2022-05-29 04:23] LABS: BASOPHILS ABSOLUTE AUTO 0.06 K/mm3 (0.00-0.23); BASOPHILS PERCENT AUTO 0 % (0-2); EOSINOPHILS ABSOLUTE AUTO 0.02 K/mm3 (0.00-0.68); EOSINOPHILS PERCENT AUTO 0 % (0-6); Hematocrit 23.2 % (37.0-53.0); Hemoglobin 6.9 g/dL (13.5-17.5); IMMATURE GRAN PERCENT AUTO 1 % (0-1); LYMPHOCYTES ABSOLUTE AUTO 0.71 K/mm3 (0.84-5.20); LYMPHOCYTES PERCENT AUTO 5 % (21-46); MONOCYTES PERCENT AUTO 4 % (4-13); Mean Corpuscular HGB 27.7 pg (26.0-34.0); Mean Corpuscular HGB Conc 29.7 g/dL (31.5-36.5); Mean Corpuscular Volume 93 fL (80-100); Mean Platelet Volume 9.8 fL (9.1-12.4); NEUTROPHILS PERCENT AUTO 90 % (41-73); Platelet Count 292 K/mm3 (150-400); RDW Coefficient Variation 15.4 % (11.7-14.2); RDW Standard Deviation 53.1 fL (35.1-46.3); Red Blood Cell Count 2.49 M/mm3 (4.30-5.90); White Blood Cell Count 15.89 K/mm3 (4.00-11.30)
[2022-05-29 04:47] LABS: Albumin, Blood 1.7 g/dL (3.4-5.0); Anion Gap 3 mmol/L (6-16); Blood Urea Nitrogen 76 mg/dL (8-24); CO2, Blood 29 mmol/L (21-32); Calcium, Blood 7.8 mg/dL (8.5-10.1); Chloride, Blood 103 mmol/L (98-108); Creatinine, Blood 2.82 mg/dL (0.60-1.20); Glomerular Filtration Rate 24 (60-); Glucose, Blood 183 mg/dL (70-99); Phosphorus, Blood 4.3 mg/dL (2.5-4.9); Potassium, Blood 5.9 mmol/L (3.5-5.5); Sodium, Blood 135 mmol/L (136-145)
--- NOTE | 2022-05-29 06:16 | NUR ---
SHIFT SUMMARY: PT MENTATION FLUCTUATES THROUGHOUT SHIFT. A&OX4 AT THE BEGINNING OF SHIFT BUT HAS BECOME MORE SOMNULENT SHIFT CONTINUES ON. ABLE TO AROUSE WITH TOUCH BUT FALLS BACK TO SLEEP QUICKLY. THIS IS NOT NEW FOR HIM BUT PREVIOUS SHIFTS HAVE REPORTED SIMILAR MENTATION. PT TOOK EVENING MEDICATIONS WHOLE WITH THIN LIQUIDS. PT WIDE AWAKE AND ABLE TO PROVIDE INSTRUCTIONS TO ASSIST HIM WITH SWALLOW. AFTER TAKING PILLS PT REPORTS SOB STATING "I DON'T THINK I SWALLOWED MY PILLS RIGHT". PT DEVELOPED COUGH THAT SOUNDED WET IN THROAT. PT ENCOURAGED TO FORCE COUGH AND CLEAR THROAT BUT UNABLE TO DO SOME COMPLETELY. LUNG SOUNDS UNCHANGED FROM PREVIOUS TO TAKING PILLS. DEMINISHES AND COARSE IN BASES. O2 SATS DECREASED TO 82% ON 3LPM. PT UNABLE TO RECOVER O2 ON NC AT 6 LPM. PLACED ON NON-REBREATHER TO ASSIST WITH RECOVERY, O2 SATS INCREASED TO 92%. PT DOES NOT APPEAR IN DISTRESS AND RESPIRATIONS REMAIN AT 20-22 BREATHS PER MINUTE. RESPIRATORY IN TO SEE PT AND OFFERED TO SUCTION BUT PT DECLINES. OBTAINED ORDER FOR CHEST X-RAY FROM DR. Duke MAHAJAN. PT SLOWLY ABLE TO CLEAR SECREATIONS IN THROAT. PT RETURNED TO NC WITH O2 AT 5 LPM, SATS AT 92%. REPORTS SOB IMPROVED. WILL CONTINUE TO MONITOR. DR. Duke MAHAJAN INFORMED THAT CHEST X-RAY COMPLETE AND IN CHART, NO NEW ORDERS AT THIS TIME. PT FEBRILE THIS AM AT 102.5, TYLENOL GIVEN. TEMPERATURE INCREASED TO 103. PT DIAPHORETIC. ICE PACKS PLACED IN AXILA AND GROIN. TEMPERATURE DECREASES TO 100.2. WILL CONTINUE TO MONITOR. PT MOVED TO BARIATRIC BED VIA CEILING LIFT. PT STATES "YOU DO THAT REALLY WELL". REPOSITIONED Q2H OFF BACK WHEN PT'S OXYGENATION PERMITTED.
[2022-05-29 08:53] LABS: Hematocrit 23.1 % (37.0-53.0); Hemoglobin 6.9 g/dL (13.5-17.5)
[2022-05-29 09:12] LABS: Bun/Creatinine Ratio 29.5 (12.0-20.0); Calcium, Blood 7.9 mg/dL (8.5-10.1); Creatinine, Blood 2.71 mg/dL (0.60-1.20); Potassium, Blood 5.6 mmol/L (3.5-5.5)
[2022-05-29 13:51] LABS: Hematocrit 25.5 % (37.0-53.0); Hemoglobin 7.8 g/dL (13.5-17.5)
[2022-05-29 17:03] LABS: Source, Urine Foley catheter
[2022-05-29 17:12] LABS: Appearance, Urine Turbid (Clear); Bilirubin, Urine Neg (Neg); Blood, Urine 5+ (Neg); Color, Urine Amber (P-Yellow); Glucose Qualitative, Urine Neg (Neg); Ketones, Urine Neg (Neg); Leukocyte Esterase, Urine 3+ (Neg); Nitrite, Urine Pos (Neg); Protein, Urine 4+ (Neg); Specific Gravity, Urine 1.015 (1.003-1.022); Urobilinogen, Urine NORM (Normal)
[2022-05-29 17:21] LABS: Bacteria Many /hpf; Red Blood Cells, Urine TNTC /hpf (0-2); Squamous Epithelial Cells Few /hpf (Few); White Blood Cells, Urine TNTC /hpf (0-5)
--- NOTE | 2022-05-29 18:40 | NUR ---
SHIFT SUMMARY: PT SOMNOLENT AT BEGINNING OF SHIFT, MENTATION IMPROVES T/OUT DAY, PT COOPERATIVE W/CARE, ALERT MOST OF AFTERNOON AND ORIENTED TO SELF, FAMILY, PLACE, SITUATION. PT REPORTS MILD SOB WHEN LYING FLAT, O2 SATS MAINTAINED >93% ON 4 L/MIN NC. PT DENIES CP, SR ON MONITOR W/RATE 80s-90s. PT RECEIVED 1 UNIT PRBC, TOLERATED WELL. ST EVAL COMPLETED AT BEDSIDE, PT TOLERATING PO MEDICATION WHEN FULLY ALERT. MINIMAL OUTPUT TO COLOSTOMY BAG THIS SHIFT. PT'S SPOUSE TO BEDSIDE TODAY. WHEN ASKED ABOUT BRINGING IN THE DOUBLE BALLOON WEN, SHE STATES PT HAS BEEN USING A SINGLE BALLOON WEN WHILE USING ABX FLUSH. INDWELLING WEN REPLACED THIS SHIFT, URINE SAMPLE COLLECTED AND SENT TO LAB. PT RECEIVED BEDBATH THIS SHIFT, WOUND CARE COMPLETED TO BILATERAL HIPS/BUTTOCKS AND RIGHT FOOT, PT TOLERATES WELL. PT REPOSITIONED PER PROTOCOL AND TOLERATED, PT REQUESTS TO BE ON HIS BACK MORE THAN SIDES DUE TO WOUNDS/PAIN. BARIATRIC BED REQUESTED AND OBTAINED, PT TRANSFERED TO NEW BED THIS AM W/OUT INCIDENT. AT THIS TIME, PT IS RESTING QUIETLY IN BED. CALL LIGHT WITHIN REACH. WILL CONTINUE TO MONITOR AND TREAT ACCORDINGLY UNTIL CHANGE OF SHIFT.
[2022-05-29 19:44] LABS: Bun/Creatinine Ratio 33.2 (12.0-20.0); Calcium, Blood 8.3 mg/dL (8.5-10.1); Creatinine, Blood 2.23 mg/dL (0.60-1.20); Potassium, Blood 4.9 mmol/L (3.5-5.5)
[2022-05-30] VITALS (10 sets, daily range): BP systolic 116–182; BP diastolic 44–79
--- NOTE | 2022-05-30 02:25 | NUR ---
GLUCOSE HOME DOSE OF 35 UNITS NPH INSULIN WAS GIVEN THIS EVENING, HS GLUCOSE WAS 127. A SPOT CHECK GLUCOSE WAS DONE @0140, GLUCOSE LEVEL WAS 67, PT WAS GIVEN A YOGURT, GLUCOSE CHECKED AGAIN APPROX 25 MINUTES LATER, RESULT WAS 80, PT WAS ASSISTED WITH AN ADDITIONAL YOGURT, WILL RE-CHECK GLUCOSE IN 30 MINUTES, RESULTS DISCUSSED WITH CONTINUING EDUCATION DEANALEX ROBERTS. PT IS NOT SYMPTOMATIC @ THIS TIME, HE WAS ABLE TO SWALLOW YOGURT WITH NO PROBLEMS, PT IS NOT ABLE TO TOLERATE REG TEXTURES AT THIS TIME.
[2022-05-30 05:28] LABS: BASOPHILS ABSOLUTE AUTO 0.05 K/mm3 (0.00-0.23); BASOPHILS PERCENT AUTO 0 % (0-2); EOSINOPHILS ABSOLUTE AUTO 0.32 K/mm3 (0.00-0.68); EOSINOPHILS PERCENT AUTO 2 % (0-6); Hematocrit 24.2 % (37.0-53.0); Hemoglobin 7.4 g/dL (13.5-17.5); IMMATURE GRAN ABSOLUTE AUTO 0.13 K/mm3 (0.00-0.10); IMMATURE GRAN PERCENT AUTO 1 % (0-1); LYMPHOCYTES ABSOLUTE AUTO 0.99 K/mm3 (0.84-5.20); LYMPHOCYTES PERCENT AUTO 7 % (21-46); MONOCYTES ABSOLUTE AUTO 0.52 K/mm3 (0.16-1.47); MONOCYTES PERCENT AUTO 4 % (4-13); Mean Corpuscular HGB 28.5 pg (26.0-34.0); Mean Corpuscular HGB Conc 30.6 g/dL (31.5-36.5); Mean Corpuscular Volume 93 fL (80-100); Mean Platelet Volume 10.2 fL (9.1-12.4); NEUTROPHILS ABSOLUTE AUTO 12.45 K/mm3 (1.96-9.15); NEUTROPHILS PERCENT AUTO 86 % (41-73); Platelet Count 323 K/mm3 (150-400); RDW Coefficient Variation 15.3 % (11.7-14.2); RDW Standard Deviation 52.3 fL (35.1-46.3); White Blood Cell Count 14.46 K/mm3 (4.00-11.30)
[2022-05-30 05:44] LABS: Calcium, Blood 7.9 mg/dL (8.5-10.1); Creatinine, Blood 1.82 mg/dL (0.60-1.20); Potassium, Blood 4.6 mmol/L (3.5-5.5)
--- NOTE | 2022-05-30 05:57 | NUR ---
SUMMARY PT HAS BEEN VERY SLEEPY. HE WILL AROUSE WITH STIMULATION, OCCASIONAL CONFUSION/FORGETFULNESS NOTED THROUGH THE NIGHT, PT HAS BEEN TALKING IN HIS SLEEP. PM MEDS WERE CRUSHED IN APPLESAUCE DUE TO PT NOT TOLERATING THIN LIQUIDS, BP IS ON THE LOW SIDE MAP REMAINS >60, SPO2 >92% ON 4L O2 VIA NC, INCREASED TEMP NOTED, TYLENOL AND COOLING MEASURES WERE DONE, SR/ST ON TELE, DENIES CP/PRESSURE, Q2 TURNS PROVIDED, WEN PATENT DRAINING TEA/MAROON COLORED URINE, WCTM & REPORT TO DAY RN, CALL LIGHT IN REACH
[2022-05-30 11:48] LABS: IMMATURE RETIC FRACTION 24.9 % (2.3-16.0); RETIC HGB EQUIVALENT 26.3 pg (28.20-36.60); RETICULOCYTE COUNT PERCENT 1.99 % (0.50-2.50)
[2022-05-30 12:07] LABS: Percent Saturation 25.5 % (20.0-50.0)
[2022-05-30 14:09] LABS: Hematocrit 26.3 % (37.0-53.0); Hemoglobin 8.1 g/dL (13.5-17.5)
--- NOTE | 2022-05-30 16:29 | NUR ---
WOUND CARE WOUND PHOTOS AND ASSESSMENTS IN HARD CHART. PT IS WELL KNOWN TO THIS RN FROM PREVIOUS ADMITS. 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 ALL WOUND CLEANSED WITH DERMAL WOUND RINSED NS, CALCIUM ALGINATE TO WOUND BEDS, COVERED ABD. LLE SECURED WITH ROLLED GAUZE. A&D TO BL BUTTOCKS AND PANNUS. SRIDEVI LIFT REMOVED FROM UNDER PT. STAFF INSTUCTED TO USE DRAW SHEET FOR REPOSITIONING AND SRIDEVI SLING FOR TRANSFERS ONLY.
--- NOTE | 2022-05-30 18:13 | NUR ---
ASSUMED CARE AT 0700. LETHARGIC AND DIFFICULT TO ARROUSE T/O DAY. EVALUATED BY ST, DIET CHANGED TO PUREE ONLY IF ALERT, HONEY THICK FLUIDS BY SPOON. Q2 TURNS WITH RIGHT LEG AND ELBOWS FLOATED. MEDIPORT ACCESSED FLUIDS AT 150ML/HR. RIGHT ANKLE AND BUTTOX PRESSURE SORE EVALUATED AND DRESSED BY WOUND CARE. PHOTOS TAKEN AND IN CHART. SPOUSE CONCERNED IN AFTERNOON REGARDING CONTINUED LETHARGY AND CONFUSION WHEN AWAKE. DR. DEAL TO ROOM TO ASSESS, VERBAL ORDER GIVEN FOR NARCAN WHICH WAS GIVEN WITH GOOD RESPONSE. WITHIN A FEW MINUTES AWAKE AND COMBATIVE. ORIENTED X3 WHEN AWAKE. AGITATED FOR APPROX 1 HOUR THEN SEEMS TO RELAX BUT IS MORE ARROUSABLE. 4L VIA NC, VSS, WEN IN PLACE DRAINING TEA COLORED URINE. OSTOMY IN PLACE AND DRAINED PRN. BED BATH TODAY AND LINEN CHANGE, ORAL CARE BY WATER OPERATOR. WILL CONTINUE TO MONITOR AND TREAT UNTIL CHANGE OF SHIFT.
[2022-05-31] VITALS (13 sets, daily range): BP systolic 145–206; BP diastolic 54–119
--- NOTE | 2022-05-31 01:06 | NUR ---
CALLED DR. MAHAJAN ABOUT BP AND NUERO CHANGES NUERO CHANGE DR. MAHAJAN CALLED ABOUT NUERO CHANGES IN PT (SEE NEURO REASSESSMENTS FOR MORE INFORMATION). DR. MAHAJAN WANTS TO CONTINUE TO DO Q4 NUERO CHECKS AND HOLD PAIN MEDICATIONS . PT IS CURRENTLY ONLY ORIENTED TO SELF, TALKING TO HIMSELF, AND IS CONFUSED. NO FURTHER ORDER AT THIS TIME. ELEVATED BP PT HAS BEEN HYPERTENSIVE AND AN ORDER OF 10MG HYDRALIZINE WAS GIVEN. BP WAS UNCHANGED. DR. MAHAJAN SAID TO GIVE THE PAIN MEDICATION TO SEE IF IT HELPS W/ HIS BP, DESPITE HIS NUERO CHANGES. 25MCG FENTANYL WAS GIVEN PER DR. MAHAJAN. SEE NOTES AND V/S FOR ANY MORE UPDATES.
[2022-05-31 04:22] LABS: BASOPHILS ABSOLUTE AUTO 0.06 K/mm3 (0.00-0.23); BASOPHILS PERCENT AUTO 1 % (0-2); EOSINOPHILS ABSOLUTE AUTO 0.11 K/mm3 (0.00-0.68); EOSINOPHILS PERCENT AUTO 1 % (0-6); Hematocrit 28.7 % (37.0-53.0); Hemoglobin 8.9 g/dL (13.5-17.5); IMMATURE GRAN ABSOLUTE AUTO 0.26 K/mm3 (0.00-0.10); IMMATURE GRAN PERCENT AUTO 2 % (0-1); LYMPHOCYTES ABSOLUTE AUTO 0.84 K/mm3 (0.84-5.20); LYMPHOCYTES PERCENT AUTO 7 % (21-46); MONOCYTES ABSOLUTE AUTO 0.59 K/mm3 (0.16-1.47); MONOCYTES PERCENT AUTO 5 % (4-13); Mean Corpuscular Volume 90 fL (80-100); Mean Platelet Volume 9.4 fL (9.1-12.4); NEUTROPHILS ABSOLUTE AUTO 10.76 K/mm3 (1.96-9.15); NEUTROPHILS PERCENT AUTO 85 % (41-73); Platelet Count 379 K/mm3 (150-400); RDW Coefficient Variation 15.1 % (11.7-14.2); RDW Standard Deviation 50.6 fL (35.1-46.3); Red Blood Cell Count 3.18 M/mm3 (4.30-5.90); White Blood Cell Count 12.62 K/mm3 (4.00-11.30)
[2022-05-31 04:45] LABS: Albumin, Blood 1.7 g/dL (3.4-5.0); Albumin/Globulin Ratio 0.4 (0.8-1.8); Bilirubin, Total 0.2 mg/dL (0.1-1.0); Globulin, Blood 4.2 g/dL (2.2-4.0); Potassium, Blood 4.4 mmol/L (3.5-5.5); Total Protein, Blood 5.9 g/dL (6.4-8.2)
--- NOTE | 2022-05-31 06:39 | NUR ---
SHIFT SUMMARY PT IS A Q4 NEURO CHECK, HE HAS HAD MANY NEURO CHANGES IN THE NIGHT. SEE NEURO REASSESSMENTS FOR MORE INFORMATION. THIS AM HE IS A&OX4. HE HAS BEEN HYPERTENSIVE THIS SHIFT AND THE IS AWARE. PT HAS BEEN MEDICATED TWICE W/ HYDRALIZINE 10MG, AND TWICE W/ FENTANYL. HE HAS HAD 10/10 T/O THE SHIFT AND HAS BEEN A Q2 TURN FOR PRESSURE ULCERS AND SKIN INTEGRITY. PT HAS BEEN ON 6L NC W/ SP02 >90%. HE BECAME VERY WHEEZY SO A REPEAT CHEST XRAY WAS OBTAINED AND IT HAD WORSENED SINCE YESTERDAY. DR. DOMINGUEZ WAS NOTIFIED AND HE IS PUTTING IN MORE ORDERS. FLUIDS HAVE BEEN STOPPED. THE PT HAS A WEN CATH THAT HAD SOME BLEEDING AROUND THE URETHRA, IT WAS CLEANED UP AND HAS SINCE RESOLVED. HIS CHRONIC WEN DOES LEAK AND HE HAS TO BE FREQUENTLY CHECKED. HE HAS A COLOSTOMY BAG THAT IS PUTTING OUT FORMED BROWN SMALL STOOLS. SEE NOTES FOR ANY MORE UPDATES.
--- NOTE | 2022-05-31 17:40 | NUR ---
SHIFT SUMMARY; ASSUMED CARE AT 0700. SLEEPING AT START OF SHIFT BUT EASY TO ARROUSE. A/A/OX3 WITH INTERMITANT CONFUSION AND HALLLUCINATIONS AT TIMES DURING SHIFT. REORIENTS WITHOUT DIFFICULTY. AWAKE MOST OF DAY. DISCUSSED PAIN MANAGEMENT WITH DR. JOHNSON AND DR. DEAL. CONTINUE PRN FENTANYL AND PT TO RESTART MS CONTIN TONIGHT WHICH IS A NORMAL HOME MED FOR PT. PT IS MUCH LESS DISORIENTED THAT PREVIOUS SHIFT. Q2 TURNS, ABLE TO MAKE NEEDS KNOWN. CHANGED DRESSING ON PRESSURE ULCER ON BUTTOX PER SUPERINTENDENT COMMUNICATIONS ORDERS. WEN IN PLACE DRAINING TO GRAVITY WITH CLEAR YELLOW URINE. PO INTAKE INCREASED TODAY, ABLE TO TOLERATE THICKENED FLUIDS WITH SPOON AND ATE SMALL AMOUNT OF MEALS WITH ASSISTANCE. VSS, 4L O2 VIA NC, WILL CONTINUE TO MONITOR AND TREAT UNTIL CHANGE OF SHIFT.
--- NOTE | 2022-05-31 21:40 | NUR ---
ASSUMPTION OF CARE THIS RN ASSUMED CARE OF PATIENT AT 1900. REPORT TAKEN FROM LUDMILA JOHNSON. PATIENT LETHARGIC BUT AWAKENS WITH VERBAL STIMULI EASILY. PUPIL RESPONSE BRISK. FOLLOWING COMMANDS. CONFUSED ABOUT LOCATION/SITUATION/DATE. KNOWS YEAR ONLY. ORIENTED TO SELF AND FAMILY. REPOSITIONING Q2HRS. WOUND ON COCCYX/BUTTOCKS DRESSED BY MANSOOR RN. WEN CATHETER DRAINING VIA GRAVITY; OCCASIONAL LEAKAGE NOTED. BP STABLE, SBP 150'S. ST ON THE MONITOR WIHT HR 100-110'S. AFEBRILE. SPO2 >92% ON 3L VIA NC. BED IN LOWEST POSITION AND CALL LIGHT WITHIN REACH.
[2022-06-01] VITALS (7 sets, daily range): BP systolic 138–162; BP diastolic 56–100
[2022-06-01 05:25] LABS: BASOPHILS ABSOLUTE AUTO 0.09 K/mm3 (0.00-0.23); BASOPHILS PERCENT AUTO 1 % (0-2); EOSINOPHILS ABSOLUTE AUTO 0.12 K/mm3 (0.00-0.68); EOSINOPHILS PERCENT AUTO 1 % (0-6); Hematocrit 31.5 % (37.0-53.0); Hemoglobin 9.7 g/dL (13.5-17.5); IMMATURE GRAN ABSOLUTE AUTO 0.59 K/mm3 (0.00-0.10); IMMATURE GRAN PERCENT AUTO 5 % (0-1); LYMPHOCYTES PERCENT AUTO 11 % (21-46); MONOCYTES PERCENT AUTO 8 % (4-13); Mean Corpuscular HGB Conc 30.8 g/dL (31.5-36.5); Mean Corpuscular Volume 91 fL (80-100); Mean Platelet Volume 9.4 fL (9.1-12.4); NEUTROPHILS ABSOLUTE AUTO 8.77 K/mm3 (1.96-9.15); NEUTROPHILS PERCENT AUTO 75 % (41-73); Platelet Count 446 K/mm3 (150-400); RDW Coefficient Variation 15.3 % (11.7-14.2); RDW Standard Deviation 50.4 fL (35.1-46.3); Red Blood Cell Count 3.46 M/mm3 (4.30-5.90); White Blood Cell Count 11.77 K/mm3 (4.00-11.30)
[2022-06-01 05:46] LABS: Calcium, Blood 8.6 mg/dL (8.5-10.1); Creatinine, Blood 0.86 mg/dL (0.60-1.20); Potassium, Blood 4.1 mmol/L (3.5-5.5)
--- NOTE | 2022-06-01 06:22 | NUR ---
SHIFT SUMMARY PATIENT MORE ALERT THAN PREVIOUSLY IN THE SHIFT. ORIENTED TO SELF/FAMILY AND OCCASIONALLY KNOWS SITUATION/PLACE. PATIENT DENIES KNOWING WHAT DATE/TIME IS. BP STABLE. ST BBB WITH HR 90-130'S ON MONITOR. PATIENT GIVEN PO PAIN MEDS PER EMAR; DENIED NEEDING FURTHER IV MEDICATIONS THROUGHOUT THIS SHIFT. PATIENT ENCOURAGED TO TAKE PO FLUIDS DURING THIS SHIFT. WOUND CARE DONE AND DRESSINGS CHANGED ON COCCYX/BUTTOCKS. WEN CATHETER PATENT AND DRAINING VIA GRAVITY. REPOSITIONING Q2HRS. MEDIPORT INFUSING TKO WITH NS. ON 3L VIA NC WITH SPO2 >92%, REFUSED CPAP OVERNIGHT. AFEBRILE. BED IN LOWEST POSITION AND CALL LIGHT WITHIN REACH. THIS RN WILL CONTINUE TO MONITOR UNTIL SHIFT CHANGE AT 0700.
--- NOTE | 2022-06-01 18:37 | NUR ---
SHIFT SUMMARY; ASSUMED CARE AT 0700. A/A/OX3 WITH VERY MILD CONFUSION AT TIMES, MUCH IMPROVED FROM PREVIOUS SHIFTS. USES CALL LIGHT AND IS ABLE TO MAKE NEEDS KNOWN. DIET ADVANCED TODAY AND IS FEEDING SELF WITH ASSISTANCE. REPOSITION Q2, BED BATH AND LINEN CHANGE COMPLETE TODAY. PRESSURE ULCER TO COCCYX DRESSING C/D/I. SPOUSE AT BEDSIDE MOST OF DAY. 4L 02 VIA NC WHICH IS BASELINE FOR PT. NO ACUTE CHANGES OR DISTRESS, WILL CONTINUE TO MONITOR AND TREAT UNTIL CHANGE OF SHIFT.
--- NOTE | 2022-06-02 03:08 | NUR ---
TALKED TO DR. MAHAJAN ABOUT PT'S HR PT HAS BEEN SUSTAINING 130'S FOR ABOUT 20 MINUTES. SHE WANTS TO CONTINUE TO MONITOR HIM AND REEVALUATE IF HE IS STILL SUSTAINING "AFTER SOME TIME" THEN SEE IF WE NEED TO GET MEDICATIONS ON BOARD. TELE IN PLACE.
[2022-06-02 04:21] LABS: Hematocrit 32.3 % (37.0-53.0); Hemoglobin 9.9 g/dL (13.5-17.5); Mean Corpuscular HGB Conc 30.7 g/dL (31.5-36.5); Mean Corpuscular Volume 92 fL (80-100); Platelet Count 453 K/mm3 (150-400); RDW Coefficient Variation 15.2 % (11.7-14.2); RDW Standard Deviation 51.2 fL (35.1-46.3); Red Blood Cell Count 3.53 M/mm3 (4.30-5.90)
[2022-06-02 04:23] VITALS: BP 152/62
[2022-06-02 04:36] LABS: Albumin, Blood 1.9 g/dL (3.4-5.0); Anion Gap 3 mmol/L (6-16); Blood Urea Nitrogen 47 mg/dL (8-24); Bun/Creatinine Ratio 56.4 (12.0-20.0); CO2, Blood 33 mmol/L (21-32); Calcium, Blood 8.4 mg/dL (8.5-10.1); Chloride, Blood 112 mmol/L (98-108); Creatinine, Blood 0.83 mg/dL (0.60-1.20); Glomerular Filtration Rate 95 (60-); Glucose, Blood 199 mg/dL (70-99); Phosphorus, Blood 2.4 mg/dL (2.5-4.9); Potassium, Blood 3.9 mmol/L (3.5-5.5); Sodium, Blood 148 mmol/L (136-145)
[2022-06-02 04:54] LABS: BAND PERCENT MAN 4 % (0-8); BASOPHILS ABSOLUTE MAN 0.14 K/mm3 (0.00-0.23); BASOPHILS PERCENT MAN 1 % (0-2); EOSINOPHILS ABSOLUTE MAN 0.28 K/mm3 (0.00-0.68); EOSINOPHILS PERCENT MAN 2 % (0-6); LYMPHOCYTES ABSOLUTE MAN 0.85 K/mm3 (0.84-5.20); LYMPHOCYTES PERCENT MAN 6 % (21-46); METAMYELOCYTE ABSOLUTE MAN 0.14 K/mm3 (0.00-0.00); METAMYELOCYTE PERCENT MAN 1 % (0-0); MONOCYTES ABSOLUTE MAN 0.99 K/mm3 (0.16-1.47); MONOCYTES PERCENT MAN 7 % (4-13); MYELOCYTE ABSOLUTE MAN 0.56 K/mm3 (0.00-0.00); MYELOCYTE PERCENT MAN 4 % (0-0); NEUTROPHILS ABSOLUTE MAN 11.21 K/mm3 (1.96-9.15); SEG NEUTROPHILS PERCENT MAN 75 % (41-73); TOTAL CELLS COUNTED 100
--- NOTE | 2022-06-02 05:22 | NUR ---
SHIFT SUMMARY PT IS A&OX4, Q2 TURN, HAS A CHRONIC WEN DRAINING YELLOW COLORED URINE TO GRAVITY, HE HAS BEEN 4L NC OR ON CPAP W/ SP02 >90%, AND HE HAS HAD NO COMPLAINTS THIS SHIFT. PT DID HAVE ABOUT AN HOUR LONG EPISODE WHERE HIS HR WAS SUSTAINING IN THE 130'S, DR. MAHAJAN WAS CALLED. SEE PREVIOUS NOTE FOR MORE INFORMATION. HIS HR IS NOW 90'S-100'S AND HE TOUCHES UP TO THE 130'S WITH TURNING AND ACTIVITY. PT HAS SLEPT MOST OF THE SHIFT AND HAS HAD NO NUERO CHANGES. NO ACUTE EVENTS OVER NIGHT. CALL LIGHT IN REACH, BED IN LOW, AND BED ALARM ON. I WILL CONTINUE TO PROVIDE CARE UNTIL SHIFT REPORT IS GIVEN TO THE ONCOMING SHIFT RN. SEE NOTES FOR ANY UPDATES.
--- NOTE | 2022-06-02 07:34 | NUR ---
ASSUMED CARE: PT RESTING QUIETLY IN BED WITH CPAP MASK IN PLACE. SINUS TACH ON TELE IN LOW 100S. NO ACUTE NEEDS OR CONCERNS AT THIS TIME.
[2022-06-02 07:39] VITALS: BP 143/63
--- NOTE | 2022-06-02 11:00 | NUR ---
PT'S CAME TO BEDSIDE AND STATED SHE WAS CONCERNED BECAUSE PT'S RESPIRATORY RATE WAS INCREASED AFTER BEDBATH AND ASSISTING WITH REPOSITIONING. WAS ALSO CONCERNED BECAUSE TISSUE WAS PUFFY NEAR CLAVICLE, ABOVE MEDIPORT SITE. MEDIPORT FLUSHED AND STRONG BLOOD RETURN NOTED. CALLED DINING CAR SERVER TO BEDSIDE WHO EVALUATED AND STATED SITE FELT LIKE FLUID EVEN THOUGH PORT WAS FUNCTIONING APPROPRIATELY. FLUIDS STOPPED TO GIVE SITE A BREAK. PT'S STATES HE HAS NOT BEEN MOVING HIS ARMS MUCH SINCE HE'S BEEN HERE. POWERGLIDE TO BE PLACED FOR ACCESS. PT WEARING CPAP AT THIS TIME AND GIVEN PAIN MED FOR MUSCLE SPASMS. STATING HE IS FEELING MORE COMFORTABLE
[2022-06-02 11:54] VITALS: BP 141/50
--- NOTE | 2022-06-02 12:20 | NUR ---
SPOKE WITH DR GREGORIO AND DR DAVIS REGARDING PT'S RIGHT CLAVICULAR SWELLING. DR GREGORIO ORDERED ULTRA SOUND AND ULTRA SOUND AWARE. DR DAVIS AT BEDSIDE EXAMINING AT THIS TIME.
--- NOTE | 2022-06-02 13:53 | NUR ---
MUCK MINER AT BEDSIDE AT THIS TIME.
[2022-06-02 16:10] VITALS: BP 128/56
--- NOTE | 2022-06-02 18:39 | NUR ---
SHIFT SUMMARY: PT'S WAS AT BEDSIDE MAJORITY OF THE SHIFT. STATED THAT PT WAS MORE LETHARGIC TODAY THAN PRIOR DAYS BUT PT DID WAKE UP AND HAVE PERIODS OF LUCIDITY. DRESSING CHANGE TO COCCYX COMPLETED. MEDICATED FOR PAIN X2. CPAP AT REST, 3L NC WHILE AWAKE. NO FURTHER NEEDS AT THIS TIME.
[2022-06-02 20:07] VITALS: BP 149/49
[2022-06-02 23:02] VITALS: BP 136/59
[2022-06-03 03:55] VITALS: BP 139/55
[2022-06-03 06:03] LABS: Hematocrit 32.3 % (37.0-53.0); Hemoglobin 9.7 g/dL (13.5-17.5); Mean Corpuscular HGB 28.2 pg (26.0-34.0); Mean Corpuscular Volume 94 fL (80-100); Mean Platelet Volume 9.1 fL (9.1-12.4); Platelet Count 446 K/mm3 (150-400); RDW Coefficient Variation 15.4 % (11.7-14.2); RDW Standard Deviation 53.1 fL (35.1-46.3); Red Blood Cell Count 3.44 M/mm3 (4.30-5.90); White Blood Cell Count 14.59 K/mm3 (4.00-11.30)
[2022-06-03 06:18] LABS: Bun/Creatinine Ratio 64.1 (12.0-20.0); Calcium, Blood 8.3 mg/dL (8.5-10.1); Creatinine, Blood 0.83 mg/dL (0.60-1.20)
[2022-06-03 06:25] LABS: BAND PERCENT MAN 1 % (0-8); BASOPHILS ABSOLUTE MAN 0.14 K/mm3 (0.00-0.23); BASOPHILS PERCENT MAN 1 % (0-2); EOSINOPHILS ABSOLUTE MAN 0.87 K/mm3 (0.00-0.68); EOSINOPHILS PERCENT MAN 6 % (0-6); LYMPHOCYTES ABSOLUTE MAN 1.45 K/mm3 (0.84-5.20); LYMPHOCYTES PERCENT MAN 10 % (21-46); METAMYELOCYTE ABSOLUTE MAN 0.58 K/mm3 (0.00-0.00); METAMYELOCYTE PERCENT MAN 4 % (0-0); MONOCYTES ABSOLUTE MAN 1.16 K/mm3 (0.16-1.47); MONOCYTES PERCENT MAN 8 % (4-13); MYELOCYTE ABSOLUTE MAN 0.29 K/mm3 (0.00-0.00); MYELOCYTE PERCENT MAN 2 % (0-0); NEUTROPHILS ABSOLUTE MAN 10.06 K/mm3 (1.96-9.15); SEG NEUTROPHILS PERCENT MAN 68 % (41-73); TOTAL CELLS COUNTED 100
--- NOTE | 2022-06-03 06:30 | NUR ---
SHIFT SUMMARY PT A&Ox3, COMMUNICATES NEEDS APPROPRIATELY, DOES NOT USE CALL LIGHT AT TIMES. PT PULLS CPAP APART FOR STAFF TO GO INTO ROOM. BP STABLE, SR-ST 90-100's, DENIES CP/PRESSURE. SpO2> 92% ON 3L VIA NC OR CPAP WHILE ASLEEP, DENIES SOB. WEN CATHETER IN PLACE, DRAINING DARK URINE TO GAVITY. OSTOMY IN PLACE, PATENT. MANAGED PT's PAIN PER EMAR. NO OTHER EVENTS, WILL REPORT TO ONCOMING RN.
--- NOTE | 2022-06-03 07:16 | NUR ---
ASSUMED CARE: PT RESTING QUIETLY WITH 3L NC IN PLACE AT THIS TIME. NSR IN 90S AT THIS TIME. TELE STATES NO EVENTS OVERNIGHT. NO ACUTE NEEDS OR CONCERNS AT THIS TIME.
[2022-06-03 07:35] VITALS: BP 144/60
[2022-06-03 11:15] VITALS: BP 145/55
--- NOTE | 2022-06-03 13:32 | NUR ---
CALL TO DR Nuñez REGARDING PT'S PAIN AND DR ORDERED TYLENOL AND STATED SHE WOULD REVIEW HOME MEDS AND DETERMINE WHAT ELSE COULD BE REORDERED.
[2022-06-03 16:00] VITALS: BP 155/58
--- NOTE | 2022-06-03 18:39 | NUR ---
SHIFT SUMMARY: PT RESTING IN BED AFTER DINNER. RECIEVED PAIN MEDS X3. STATES A LOT OF DISCOMFORT IN RIGHT SHOULDER. DISCUSSED STARTING GABAPENTIN WITH DR DAVIS WHO STATED SHE WOULD RESUME BUT NO NEW ORDERS AT THIS TIME. GAVE PRN ORDER FOR EKG IF TACYCARDIC >120S TO DETERMINE IF RHYTHM IS AFIB. TELE AWARE TO NOTIFY IF HR ESCALATES. PT DENIES FURTHER NEEDS AT THIS TIME.
[2022-06-03 21:29] VITALS: BP 153/64
[2022-06-03 23:39] VITALS: BP 144/61
[2022-06-04 03:16] VITALS: BP 141/61
[2022-06-04 03:32] LABS: Hematocrit 30.9 % (37.0-53.0); Hemoglobin 9.3 g/dL (13.5-17.5); Mean Corpuscular HGB 27.9 pg (26.0-34.0); Mean Corpuscular HGB Conc 30.1 g/dL (31.5-36.5); Mean Corpuscular Volume 93 fL (80-100); Platelet Count 451 K/mm3 (150-400); RDW Standard Deviation 51.3 fL (35.1-46.3); Red Blood Cell Count 3.33 M/mm3 (4.30-5.90)
[2022-06-04 03:59] LABS: Calcium, Blood 8.3 mg/dL (8.5-10.1); Creatinine, Blood 0.71 mg/dL (0.60-1.20); Potassium, Blood 4.1 mmol/L (3.5-5.5)
[2022-06-04 04:32] LABS: BAND PERCENT MAN 3 % (0-8); BASOPHILS PERCENT MAN 0 % (0-2); EOSINOPHILS ABSOLUTE MAN 1.05 K/mm3 (0.00-0.68); EOSINOPHILS PERCENT MAN 7 % (0-6); LYMPHOCYTES ABSOLUTE MAN 2.11 K/mm3 (0.84-5.20); LYMPHOCYTES PERCENT MAN 14 % (21-46); METAMYELOCYTE PERCENT MAN 4 % (0-0); MONOCYTES PERCENT MAN 4 % (4-13); MYELOCYTE ABSOLUTE MAN 0.15 K/mm3 (0.00-0.00); MYELOCYTE PERCENT MAN 1 % (0-0); NEUTROPHILS ABSOLUTE MAN 10.57 K/mm3 (1.96-9.15); SEG NEUTROPHILS PERCENT MAN 67 % (41-73); TOTAL CELLS COUNTED 100
--- NOTE | 2022-06-04 06:33 | NUR ---
SHIFT SUMMARY PT A&Ox3, COMMUNICATES NEEDS APPROPRIATELY, DOES NOT USE CALL LIGHT AT TIMES. BP STABLE, SR-ST 90-100's, DENIES CP/PRESSURE. SpO2> 92% ON 3L VIA NC, DENIES SOB. WEN CATHETER IN PLACE, DRAINING YELLOW URINE TO GAVITY. OSTOMY IN PLACE, PATENT. MANAGED PT's PAIN PER EMAR. WOUND CARE PROVIDE, DRESSINGS CHANGED. NO OTHER EVENTS, WILL REPORT TO ONCOMING RN.
[2022-06-04 09:08] VITALS: BP 130/58
[2022-06-04 15:09] VITALS: BP 120/56
--- NOTE | 2022-06-04 18:17 | NUR ---
TRANSFER- PT TRANSFERRED TO MEDICAL FLOOR AFTER RN RECEIVED REPORT FROM PCU NURSE. PT IN STABLE CONDITION. PT HAS LARGE WOUND TO RIGHT BUTTOCK. DRESSING CHANGED TODAY IN PCU. DRESSING CDI. PT ALSO HAS PRESSURE WOUND TO RIGHT LATERAL ANKLE. DRESSING CDI. WEN CATHETER CARE PERFORMED THIS [facility].
[2022-06-04 20:14] VITALS: BP 146/56
[2022-06-05 04:10] VITALS: BP 141/52
[2022-06-05 06:29] LABS: Hematocrit 30.3 % (37.0-53.0); Mean Corpuscular HGB 27.4 pg (26.0-34.0); Mean Corpuscular HGB Conc 29.7 g/dL (31.5-36.5); Mean Corpuscular Volume 92 fL (80-100); Mean Platelet Volume 9.3 fL (9.1-12.4); Platelet Count 493 K/mm3 (150-400); RDW Coefficient Variation 14.9 % (11.7-14.2); RDW Standard Deviation 50.2 fL (35.1-46.3); Red Blood Cell Count 3.29 M/mm3 (4.30-5.90); White Blood Cell Count 15.59 K/mm3 (4.00-11.30)
[2022-06-05 06:58] LABS: BAND PERCENT MAN 1 % (0-8); BASOPHILS PERCENT MAN 0 % (0-2); EOSINOPHILS ABSOLUTE MAN 0.31 K/mm3 (0.00-0.68); EOSINOPHILS PERCENT MAN 2 % (0-6); LYMPHOCYTES ABSOLUTE MAN 0.93 K/mm3 (0.84-5.20); LYMPHOCYTES PERCENT MAN 6 % (21-46); METAMYELOCYTE ABSOLUTE MAN 0.46 K/mm3 (0.00-0.00); METAMYELOCYTE PERCENT MAN 3 % (0-0); MONOCYTES ABSOLUTE MAN 0.46 K/mm3 (0.16-1.47); MONOCYTES PERCENT MAN 3 % (4-13); MYELOCYTE ABSOLUTE MAN 0.62 K/mm3 (0.00-0.00); MYELOCYTE PERCENT MAN 4 % (0-0); NEUTROPHILS ABSOLUTE MAN 12.78 K/mm3 (1.96-9.15); SEG NEUTROPHILS PERCENT MAN 81 % (41-73); TOTAL CELLS COUNTED 100
[2022-06-05 06:59] LABS: Albumin, Blood 1.8 g/dL (3.4-5.0); Albumin/Globulin Ratio 0.5 (0.8-1.8); Bilirubin, Total 0.2 mg/dL (0.1-1.0); Bun/Creatinine Ratio 85.8 (12.0-20.0); Calcium, Blood 8.3 mg/dL (8.5-10.1); Creatinine, Blood 0.7 mg/dL (0.60-1.20); Globulin, Blood 3.9 g/dL (2.2-4.0); Potassium, Blood 4.2 mmol/L (3.5-5.5); Total Protein, Blood 5.7 g/dL (6.4-8.2)
--- NOTE | 2022-06-05 07:14 | NUR ---
SUMMARY NO ACUTE CHANGES TONIGHT. SLLEEPING AT THIS TIME.
[2022-06-05 07:25] VITALS: BP 137/51
[2022-06-05 15:57] VITALS: BP 111/61
--- NOTE | 2022-06-05 18:14 | NUR ---
SHIFT SUMMARY- PT AAOX3-4 THIS SHIFT. DISORIENTED ON SITUATION INTERMITTENTLY. CALLS APPROPRIATELY. CALM AND COOPERATIVE. RN CHANGED BILATERAL BUTTOCK DRESSINGS THIS SHIFT AND ANKLE DRESSING.
--- NOTE | 2022-06-06 04:15 | NUR ---
SHIFT MOSTLY UNREMARKABLE. PT HAS BEEN VERY SLEEPY THROUGH SHIFT AND HAS SLEPT THROUGH MOST OF THE NIGHT. PT RECEIVED 2 UNITS OF HUMALOG WIHT 2100 MEDS, REST OF 2100 MEDS ADMINISTERED WITHOUT DIFFICULTY. PT HAS MOANED AND GRIMACED WHILE SLEEPING. WHEN PROMPTED, PT IS AROUSABLE AND DENIES PAIN AND REFUSES PAIN MEDICATION. HS CBG WAS ~330MG/DL. PLAN IS TO DC TODAY. PER DAY SHIFT REPORT, IF PT DOES NOT DC DURING DAY TODAY [facility] HAS HAD NS RUNNING KVO SINCE BEGINNING OF SHIFT. PT IS AOX4, PLEASANT, COOPERATIVE WITH CARE, AND SOMNOLENT THROUGH SHIFT. BED LOCKED IN LOWEST POSITION. CALL LIGHT LEFT WITHIN REACH.
[2022-06-06 04:30] VITALS: BP 129/49
[2022-06-06 06:35] LABS: Hemoglobin 8.9 g/dL (13.5-17.5); Mean Corpuscular HGB 28.4 pg (26.0-34.0); Mean Corpuscular HGB Conc 30.7 g/dL (31.5-36.5); Mean Corpuscular Volume 93 fL (80-100); Mean Platelet Volume 9.5 fL (9.1-12.4); Platelet Count 518 K/mm3 (150-400); RDW Coefficient Variation 14.8 % (11.7-14.2); RDW Standard Deviation 49.9 fL (35.1-46.3); Red Blood Cell Count 3.13 M/mm3 (4.30-5.90); White Blood Cell Count 18.01 K/mm3 (4.00-11.30)
[2022-06-06 06:51] LABS: Bun/Creatinine Ratio 88.6 (12.0-20.0); Calcium, Blood 7.9 mg/dL (8.5-10.1); Creatinine, Blood 0.73 mg/dL (0.60-1.20); Potassium, Blood 4.5 mmol/L (3.5-5.5)
[2022-06-06 07:27] VITALS: BP 134/60
[2022-06-06 07:54] LABS: BAND PERCENT MAN 1 % (0-8); BASOPHILS PERCENT MAN 0 % (0-2); EOSINOPHILS PERCENT MAN 0 % (0-6); LYMPHOCYTES ABSOLUTE MAN 1.98 K/mm3 (0.84-5.20); LYMPHOCYTES PERCENT MAN 11 % (21-46); METAMYELOCYTE ABSOLUTE MAN 0.18 K/mm3 (0.00-0.00); METAMYELOCYTE PERCENT MAN 1 % (0-0); MONOCYTES ABSOLUTE MAN 0.54 K/mm3 (0.16-1.47); MONOCYTES PERCENT MAN 3 % (4-13); MYELOCYTE ABSOLUTE MAN 0.36 K/mm3 (0.00-0.00); MYELOCYTE PERCENT MAN 2 % (0-0); NEUTROPHILS ABSOLUTE MAN 14.94 K/mm3 (1.96-9.15); SEG NEUTROPHILS PERCENT MAN 82 % (41-73); TOTAL CELLS COUNTED 100
[2022-06-06] MEDS ORDERED: ELIQUIS5 M2 PO (14:15)
[2022-06-06 16:14] VITALS: BP 140/51
--- NOTE | 2022-06-06 18:10 | NUR ---
PT DISCHARGED FROM THE UNIT. DISCHARGE INSTRUCTIONS REVIEIWED. MEDICATIONS SENT TO PHARMACY. INSTUCTED ON FOLLOW UP APTS.
== END 2022-06-06 17:30 | disposition home health service (06) | DRG 698 ==
LOC: ER 17:41 → MEDS 19:45 → PCU 19:45 → MEDS 06-04 14:14
PROVIDERS: Emergency Medicine; Family Medicine; Student in an Organized Health Care Education/Training Program; ADMIT Student in an Organized Health Care Education/Training Program
PROC: 3E03329 Introduction of Other Anti-infective into Peripheral Vein, Percutaneous Approach (ICD-10-PCS; principal; 2022-05-27)
PROC: 30233N1 Transfusion of Nonautologous Red Blood Cells into Peripheral Vein, Percutaneous Approach (ICD-10-PCS; 2022-05-29)
PROC: 0T9B70Z Drainage of Bladder with Drainage Device, Via Natural or Artificial Opening (ICD-10-PCS; 2022-05-29)
DX: T83.511A Infection and inflammatory reaction due to indwelling urethral catheter, initial encounter (principal); A41.4 Sepsis due to anaerobes; R65.20 Severe sepsis without septic shock; G92.8 Other toxic encephalopathy; J96.21 Acute and chronic respiratory failure with hypoxia; N12 Tubulo-interstitial nephritis, not specified as acute or chronic; G82.20 Paraplegia, unspecified; N17.9 Acute kidney failure, unspecified; Z68.41 Body mass index [BMI] 40.0-44.9, adult; Z16.12 Extended spectrum beta lactamase (ESBL) resistance; L97.319 Non-pressure chronic ulcer of right ankle with unspecified severity; Z20.822 Contact with and (suspected) exposure to COVID-19; G47.33 Obstructive sleep apnea (adult) (pediatric); E66.01 Morbid (severe) obesity due to excess calories; D63.8 Anemia in other chronic diseases classified elsewhere; G89.29 Other chronic pain; I48.0 Paroxysmal atrial fibrillation; I45.10 Unspecified right bundle-branch block; E11.649 Type 2 diabetes mellitus with hypoglycemia without coma; D75.838 Other thrombocytosis; Z28.21 Immunization not carried out because of patient refusal; N31.9 Neuromuscular dysfunction of bladder, unspecified; E87.5 Hyperkalemia; Z88.2 Allergy status to sulfonamides; Z88.1 Allergy status to other antibiotic agents; Z88.8 Allergy status to other drugs, medicaments and biological substances; Z79.4 Long term (current) use of insulin; Z79.82 Long term (current) use of aspirin; Z79.899 Other long term (current) drug therapy; S24.153S Other incomplete lesion at T7-T10 level of thoracic spinal cord, sequela; Z93.3 Colostomy status; Z89.512 Acquired absence of left leg below knee; Z98.890 Other specified postprocedural states; Y84.6 Urinary catheterization as the cause of abnormal reaction of the patient, or of later complication, without mention of misadventure at the time of the procedure
CPT/HCPCS: 0241U; 31720; 36415; 36430; 51703; 71045; 76536; 76770; 80048; 80053; 80069; 81001; 82248; 82550; 82728; 82947; 83540; 83550; 83605; 83735; 83880; 84100; 84132; 85014; 85018; 85025; 85045; 85610; 85730; 86850; 86900; 86901; 86923; 87040; 87077; 87086; 87186; 92526; 92610; 93005; 93010; 93306; 94640; 94644; 94660; 94664; 94762; 96365; 96375; 99285-25; A9270; J0360; J0612; J1642; J1644; J1650; J1815; J1940; J2185; J2310; J3010; J7030; J7050; J7120; J7799; P9016

== ENCOUNTER 2022-06-11 14:11 | Inpatient (IN) | payer MEDICARE, BC ==
[~2022-06-11] VITALS: Ht 170.2 cm; Wt 157.6 kg
[~2022-06-11 14:11] MED LIST changes: +ELIQUIS5 M2 PO
[2022-06-11 14:52] LABS: BASOPHILS ABSOLUTE AUTO 0.08 K/mm3 (0.00-0.23); BASOPHILS PERCENT AUTO 0 % (0-2); EOSINOPHILS ABSOLUTE AUTO 0.07 K/mm3 (0.00-0.68); EOSINOPHILS PERCENT AUTO 0 % (0-6); Hematocrit 27.2 % (37.0-53.0); Hemoglobin 8.1 g/dL (13.5-17.5); IMMATURE GRAN ABSOLUTE AUTO 0.36 K/mm3 (0.00-0.10); IMMATURE GRAN PERCENT AUTO 2 % (0-1); LYMPHOCYTES PERCENT AUTO 4 % (21-46); MONOCYTES ABSOLUTE AUTO 1.19 K/mm3 (0.16-1.47); MONOCYTES PERCENT AUTO 5 % (4-13); Mean Corpuscular HGB Conc 29.8 g/dL (31.5-36.5); Mean Corpuscular Volume 94 fL (80-100); Mean Platelet Volume 9.6 fL (9.1-12.4); NEUTROPHILS ABSOLUTE AUTO 19.63 K/mm3 (1.96-9.15); NEUTROPHILS PERCENT AUTO 89 % (41-73); Platelet Count 744 K/mm3 (150-400); RDW Coefficient Variation 14.8 % (11.7-14.2); RDW Standard Deviation 51.1 fL (35.1-46.3); Red Blood Cell Count 2.89 M/mm3 (4.30-5.90); White Blood Cell Count 22.13 K/mm3 (4.00-11.30)
[2022-06-11 15:30] LABS: Alanine Aminotransfer (ALT/SGP 20 U/L (12-78); Albumin, Blood 1.9 g/dL (3.4-5.0); Albumin/Globulin Ratio 0.4 (0.8-1.8); Alk Phos 84 U/L (50-136); Anion Gap Unable to Calculate mmol/L (6-16); Aspartate Aminotrans (AST/SGOT 15 U/L (12-37); Bilirubin, Total 0.3 mg/dL (0.1-1.0); Blood Urea Nitrogen 88 mg/dL (8-24); Bun/Creatinine Ratio 41.5 (12.0-20.0); CO2, Blood 31 mmol/L (21-32); Calcium, Blood 8.6 mg/dL (8.5-10.1); Chloride, Blood 104 mmol/L (98-108); Creatinine, Blood 2.12 mg/dL (0.60-1.20); Globulin, Blood 4.6 g/dL (2.2-4.0); Glomerular Filtration Rate 33 (60-); Glucose, Blood 241 mg/dL (70-99); Potassium, Blood 7.6 mmol/L (3.5-5.5); Sodium, Blood 134 mmol/L (136-145); Total Protein, Blood 6.5 g/dL (6.4-8.2)
[2022-06-11 15:52] LABS: International Normalized Ratio 1.04; Prothrombin Time Results 10.9 Sec (9.7-11.5)
[2022-06-11 17:53] LABS: Base Excess Venous 3.9 mmol/L; Bicarbonate Venous 27.1 mmol/L (24.0-30.0); PCO2 Venous 64.3 mmHg (38-42); pH Blood Venous 7.29 (7.34-7.37)
[2022-06-11 20:42] LABS: Albumin, Blood 1.8 g/dL (3.4-5.0); Anion Gap 0 mmol/L (6-16); Blood Urea Nitrogen 86 mg/dL (8-24); Bun/Creatinine Ratio 40.2 (12.0-20.0); CO2, Blood 28 mmol/L (21-32); Calcium, Blood 8.4 mg/dL (8.5-10.1); Chloride, Blood 106 mmol/L (98-108); Creatinine, Blood 2.14 mg/dL (0.60-1.20); Glomerular Filtration Rate 33 (60-); Glucose, Blood 224 mg/dL (70-99); Phosphorus, Blood 4.5 mg/dL (2.5-4.9); Potassium, Blood 7.1 mmol/L (3.5-5.5); Sodium, Blood 134 mmol/L (136-145)
[2022-06-11 20:46] LABS: Source, Urine Foley catheter
[2022-06-11 20:49] LABS: Appearance, Urine Turbid (Clear); Bilirubin, Urine Neg (Neg); Blood, Urine 5+ (Neg); Glucose Qualitative, Urine Neg (Neg); Ketones, Urine Neg (Neg); Leukocyte Esterase, Urine 3+ (Neg); Nitrite, Urine Neg (Neg); Protein, Urine 3+ (Neg); Urobilinogen, Urine NORM (Normal)
--- NOTE | 2022-06-11 20:51 | NUR ---
TRANSFER OF CARE NOTE RECEIVED REPORT FROM ER NURSE CADE MONREAL. PT SHORTLY ARRIED TO PCU 10 AROUND 2054 ON 06/11/22. PT WAS VERY SOMULENT AND DIFFICULT TO AROUSE UNLESS TO PAINFUL STIMULI. EYES WERE TIGHTLY SHUT AND WOULD INTERMITTENTLY MUMBLING/GRUNTING. MAINTAINED SPO2 >95% ON BASELINE OF 4L VIA NC, BREATHS WERE SHALLOW AND IRREGULAR. CARDIAC WHITE, PT WAS SR-ST WITH HR RANGING IN 90-110'S. BP SOFT. CHRONIC CATH PATENT, AND DRAINING CLOUDY/URINE TO GRAVITY. OSTOMY LOCATED IN LLQ, OSTOMY CHANGED IN ER PER REPORT. CHRONIC PRESSURE ULCERS PRESENT ON HIPS BILAT. WELL RIGHT ANKLE. DRESSINGS ON HIPS SATURATED WITH BLOOD/PURULENT DRAINAGE. DRESSINGS CHANGED UPON ARRIVAL AND PICTURES IN CHART. WOUND CARE CONSULT IN PLACE. WILL CONTINUE TO PROCESS MD ORDERS.
[2022-06-11 20:56] LABS: Color, Urine Pale Yellow (P-Yellow)
[2022-06-11 20:58] LABS: White Blood Cells, Urine TNTC /hpf (0-5)
[2022-06-11 20:59] LABS: Bacteria Many /hpf; Renal Epithelial Rare /hpf (0-Rare); Squamous Epithelial Cells Rare /hpf (Few); Transitional Epithelial Cells Rare /hpf (0-Rare)
[2022-06-11 21:45] VITALS: BP 100/67
[2022-06-11 21:55] LABS: PCO2 Arterial 58.4 mmHg (35-45); PO2 Arterial 84.4 mmHg (80-100); pH Blood Arterial 7.31 (7.35-7.45)
[2022-06-11 22:00] VITALS: BP 99/62
[2022-06-11 22:15] VITALS: BP 97/53
[2022-06-11 22:30] VITALS: BP 96/54
[2022-06-11 23:47] VITALS: BP 149/39
[2022-06-11 23:50] VITALS: BP 147/52
[2022-06-12] VITALS (10 sets, daily range): BP systolic 115–151; BP diastolic 34–99
[2022-06-12 04:29] LABS: Magnesium, Blood 2.5 mg/dL (1.6-2.4)
[2022-06-12 05:09] LABS: Albumin, Blood 1.6 g/dL (3.4-5.0); Blood Urea Nitrogen 86 mg/dL (8-24); Bun/Creatinine Ratio 42.6 (12.0-20.0); CO2, Blood 32 mmol/L (21-32); Calcium, Blood 7.7 mg/dL (8.5-10.1); Chloride, Blood 107 mmol/L (98-108); Creatinine, Blood 2.02 mg/dL (0.60-1.20); Glomerular Filtration Rate 35 (60-); Glucose, Blood 206 mg/dL (70-99); Phosphorus, Blood 3.6 mg/dL (2.5-4.9); Sodium, Blood 136 mmol/L (136-145)
[2022-06-12 05:10] LABS: Anion Gap Unable to Calculate mmol/L (6-16); Potassium, Blood 6.5 mmol/L (3.5-5.5)
[2022-06-12 05:16] LABS: BASOPHILS ABSOLUTE AUTO 0.05 K/mm3 (0.00-0.23); BASOPHILS PERCENT AUTO 0 % (0-2); EOSINOPHILS ABSOLUTE AUTO 0.03 K/mm3 (0.00-0.68); EOSINOPHILS PERCENT AUTO 0 % (0-6); Hematocrit 25.5 % (37.0-53.0); Hemoglobin 7.5 g/dL (13.5-17.5); IMMATURE GRAN ABSOLUTE AUTO 0.16 K/mm3 (0.00-0.10); IMMATURE GRAN PERCENT AUTO 1 % (0-1); LYMPHOCYTES ABSOLUTE AUTO 0.78 K/mm3 (0.84-5.20); LYMPHOCYTES PERCENT AUTO 4 % (21-46); MONOCYTES ABSOLUTE AUTO 1.12 K/mm3 (0.16-1.47); MONOCYTES PERCENT AUTO 6 % (4-13); Mean Corpuscular HGB 27.9 pg (26.0-34.0); Mean Corpuscular HGB Conc 29.4 g/dL (31.5-36.5); Mean Corpuscular Volume 95 fL (80-100); NEUTROPHILS ABSOLUTE AUTO 16.15 K/mm3 (1.96-9.15); NEUTROPHILS PERCENT AUTO 88 % (41-73); Platelet Count 656 K/mm3 (150-400); RDW Standard Deviation 52.4 fL (35.1-46.3); Red Blood Cell Count 2.69 M/mm3 (4.30-5.90); White Blood Cell Count 18.29 K/mm3 (4.00-11.30)
--- NOTE | 2022-06-12 07:51 | NUR ---
SHIFT SUMMARY PT HAS NOT MUCH IMPROVED SINCE TRANSFER OF CARE NOTE. MENTATION REMAINS LETHARGIC, BUT EYES OPEN OCCASTIONALLY TO VERBAL STIMULI. PT ABLE TO STATE HE IS AT [facility] BUT QUICKLY FALLS BACK TO SLEEP. SEE TRANSFER OF CARE NOTE FOR MORE DETAILS. T/O THE NIGHT PT'S POTASSIUM HAS BEEN CRITICALLY HIGH. DR. BARILLAS FOLLOWING CLOSELY WITH D50, INSULIN, AND BICARB GIVEN ORDERED VIA EMAR T/O THE NIGHT. REPEAT POTASSIUM LAB DRAWS TO BE ISSUED T/O THE AM ORDERED. DAY SHIFT RN MADE AWARE TO CONTACT ERAN WITH RESULTS. PRESSURES HAVE IMPROVED DURING THE NIGHT WITH SBP RANGING IN THE 130-140'S. PAIN HAS BEEN MANAGED ORDERED VIA EMAR. NO NEW ORDERS AT THIS TIME, WILL REPORT TO [facility]
[2022-06-12 10:29] LABS: Bicarbonate Venous 29.1 mmol/L (24.0-30.0); PCO2 Venous 55.3 mmHg (38-42); pH Blood Venous 7.36 (7.34-7.37)
--- NOTE | 2022-06-12 18:14 | NUR ---
SHIFT SUMMARY: PT CONTINUES LETHARGIC, AWAKENS FAIRLY EASILY TO STAFF TOUCHING SHOULDER AND TALKING TO HIM, OCCASIONALLY NEEDING MORE STIMULI TO WAKE. WHEN ALERT, PT ANSWERING QUESTIONS APPROPRIATELY, ENDORSES FEELING CONFUSED, ORIENTED TO SELF, SPOUSE, AND ASKING QUESTIONS RE: SITUATION. PT DENIES SOB, CP. PT DOES C/O INTERMITTENT SHOULDER AND GENERAL PAIN/DISCOMFORT, MEDICATED PER EMAR. NEW SPECIALTY BED REQUESTED AND RECEIVED, PT MOVED OVER VIA LIFT, AIR THERAPY IN PLACE FOR REPOSITIONG. O2 SATS >93% ON 3 L/MIN NC. SR/ST ON MONITOR W/RATE 90s-110s. ONGOING TREATMENT PER EMAR FOR K+ LEVELS. INDWELLING WEN CATHETER DRAINING CLOUDY/PURULENT/YELLOW COLORED URINE TO GRAVITY. WOUND CARE COMPLETED THIS SHIFT, NEW DRESSINGS APPLIED TO BILATERAL HIPS/BUTTOCKS AND RT ANKLE. AT THIS TIME, PT RESTING QUIETLY IN BED W/CALL LIGHT IN REACH. WILL CONTINUE TO MONITOR AND TREAT ACCORDINGLY UNTIL CHANGE OF SHIFT.
--- NOTE | 2022-06-12 23:08 | NUR ---
UPDATE POTASSIUM LEVEL CAME BACK TO 5.6 AT [address] BARILLAS INFORMED DIRECTED WITH NEW ORDERS TO ADMINISTER 2MG OF BUMEX AND THEN A RECHECK WITH AM LAB DRAWS. WILL IMPLEMENT NEW ORDERS PER MD REQUEST, NO OTHER ORDERS AT THIS TIME
[2022-06-13] VITALS (14 sets, daily range): BP systolic 129–168; BP diastolic 49–71
[2022-06-13 04:05] LABS: BASOPHILS ABSOLUTE AUTO 0.04 K/mm3 (0.00-0.23); BASOPHILS PERCENT AUTO 0 % (0-2); EOSINOPHILS ABSOLUTE AUTO 0.06 K/mm3 (0.00-0.68); EOSINOPHILS PERCENT AUTO 1 % (0-6); Hematocrit 22.9 % (37.0-53.0); Hemoglobin 6.9 g/dL (13.5-17.5); IMMATURE GRAN ABSOLUTE AUTO 0.08 K/mm3 (0.00-0.10); IMMATURE GRAN PERCENT AUTO 1 % (0-1); LYMPHOCYTES ABSOLUTE AUTO 0.53 K/mm3 (0.84-5.20); LYMPHOCYTES PERCENT AUTO 6 % (21-46); MONOCYTES ABSOLUTE AUTO 0.54 K/mm3 (0.16-1.47); MONOCYTES PERCENT AUTO 6 % (4-13); Mean Corpuscular HGB 27.9 pg (26.0-34.0); Mean Corpuscular HGB Conc 30.1 g/dL (31.5-36.5); Mean Corpuscular Volume 93 fL (80-100); Mean Platelet Volume 9.4 fL (9.1-12.4); NEUTROPHILS ABSOLUTE AUTO 8.22 K/mm3 (1.96-9.15); NEUTROPHILS PERCENT AUTO 87 % (41-73); Platelet Count 545 K/mm3 (150-400); RDW Coefficient Variation 14.8 % (11.7-14.2); RDW Standard Deviation 51.4 fL (35.1-46.3); Red Blood Cell Count 2.47 M/mm3 (4.30-5.90); White Blood Cell Count 9.47 K/mm3 (4.00-11.30)
[2022-06-13 04:22] LABS: Magnesium, Blood 2.3 mg/dL (1.6-2.4)
[2022-06-13 04:25] LABS: Albumin, Blood 1.4 g/dL (3.4-5.0); Anion Gap Unable to Calculate mmol/L (6-16); Blood Urea Nitrogen 74 mg/dL (8-24); Bun/Creatinine Ratio 42.5 (12.0-20.0); CO2, Blood 36 mmol/L (21-32); Calcium, Blood 8.2 mg/dL (8.5-10.1); Chloride, Blood 109 mmol/L (98-108); Creatinine, Blood 1.74 mg/dL (0.60-1.20); Glomerular Filtration Rate 42 (60-); Glucose, Blood 207 mg/dL (70-99); Phosphorus, Blood 4.1 mg/dL (2.5-4.9); Potassium, Blood 4.9 mmol/L (3.5-5.5); Sodium, Blood 142 mmol/L (136-145)
--- NOTE | 2022-06-13 06:29 | NUR ---
SHIFT SUMMARY MENTATION HAS GREATYLY IMPROVED THE SHIFT HAS PROGRESSED. PT IS A/Ox2-3, ABLE TO ANSWER MOST QUESTIONS APPROPRIATELY AND ABLE TO MAKE MOST NEEDS KNOWN. EYES OPEN TO VERBAL STIMULI AND PT IS ABLE TO HOLD A CONVERSATION. CARDIAC WHITE, REMAINED SR-ST 90-110'S WITH NO C/O CP OR PRESSURE DURING THE NIGHT. SBP HAS REMAINED STABLE WELL. MAINTAINS SPO2 >90% ON 3-4L VIA NC. PT HAS HX OF HALLEY AND INTERMITTENTLY DESATS TO 80'S WHEN ASLEEP. PT HAS NOTE TOLERATED CPAP IN PAST ACCORDING TO H&P. PERFORMED BESIDE SWALLOW EVAL EARLY THIS AM. PT ABLE TO DRINK WATER WELL SWALLOW PILLS WHOLE ONE AT A TIME W/O DIFFICULTY. SPOKE WITH NOC RESIDENT ABOUT RESUMING PT'S HOME MED'S IF HIS MENTATION CONTINUES TO IMPROVE. PT REPOISITONED Q2HRS TO ALLEVIATE ANYMORE SKIN BREAKDOWN WITH PT'S CHRONIC PRESSURE ULCERS. PT'S POTASSIUM CAME DOWN TO 4.[address] BARILLAS TO BEDSIDE TO REVIEW PT'S ORDERS. Hgb CAME BACK THIS AM AT 6.9. SPOKE WITH NIGHT RESIDENT WHO ORDERED 1 UNIT OF PRBC'S TO BE TRANSFUSED. CHRONIC WEN IN PLACE DRAINING CLOUDY/YELLOW URINE TO GRAVITY. MODERATE LEAKING NOTED AROUND INSERTION SITE. PURWICK AND ABSORBENT PADS IN PLACE TO CATCH LEAKING URINE. NO NEW ORDERS AT THIS TIME, WILL REPORT TO ONCOMING RN.
--- NOTE | 2022-06-13 09:59 | NUR ---
ASSUMED CARE: ASSUMED CARE OF PT APPROX 0730. PT DROWSY IN BED. SPOKE SOFTLY. ABLE TO ANSWER QUESTIONS APPROPRIATELY. ABLE TO FOLLOW COMMANDS. VSS. WEN CATHETER IN PLACE WITH PUREWICK CATCHING LEAKING URINE. NS INFUSING AT 50 ML/HR. THIS AM PT HAD ORDERS FOR PRBC. PRBC VERIFIED AND INFUSING PER EMAR. DEYSI IN ROOM. DEYSI WITH ORDERS FOR BEDSIDE SWALLOW AND ADA DIET. PT ABLE TO SWALLOW APPLESAUCE WITHOUT OBVIOUS COMPLICATIONS. NO FURTHER NEEDS AT THIS TIME. CALL LIGHT WITHIN REACH.
--- NOTE | 2022-06-13 11:59 | NUR ---
Met with pt and his family in his room this morning. He is more awake and alert this morning. Tiago recognized this technical proposal writer. This technical proposal writer has taken care of Tiago for many years in the outpatient infusion center. He states he is feeling a little better. Sinai, his , explains that he has been in the hospital multiple times recently for sepsis treatments. They have been doing the amikacin flushes to his min as directed at home. Family is happy he is awake and alert. Sinai has questions about Tiago's chronic anemia and iron infusions. She reports in the past the Dr. Quiroz has ordered IV iron infusions and she states that they notice he always is improved with the infusions. Tiago is currently receiving a blood transfusion during the visit. Sinai states she will be contacting Dr. Quiroz's office once Tiago is discharged to inquire about the IV iron infusions. Sinai reports they have a close friend/neighbor who is a retired ICU nurse who checks in on them regularly. Kept visit brief and established rapport with Tiago's family. Spoke with Dr. Mora re: CT results from yesterday. Dr. Mora will follow up with Tiago and his family to give them the CT results. PC to continue to follow for symptom management and gentle care planning prn. Updated nursing.
--- NOTE | 2022-06-13 17:44 | NUR ---
SHIFT SUMMARY: PT A&OX4 BUT LETHARGIC. ABLE TO ANSWER QUESTIONS AND MAKE NEEDS KNOWN. PT STATES "I DON'T FEEL GOOD." PT ORAL TEMPERATURE 98.2 THIS PM. PT'S STATES THIS IS ELEVATED FOR PT. PT REMAINED ON 3L O2 VIA N/C WITH SATS MOSTLY >92%. RHYTHM IS SINUS TACH WITH RATE MOSTLY 90-110'S. INCREASED TO 130-140'S INTERMITTENTLY. SYSTOLIC BP 140-160'S THIS SHIFT. MD JO NOTIFIED. MD JO WITH ORDERS FOR IV METOPROLOL. METOPROLOL GIVEN PER EMAR X1. HR CURRENTLY 100'S. PT WITH CHRONIC WEN DRAINING YELLOW URINE. PUREWICK IN PLACE TO ABSORB LEAKAGE. PT WITH HGB OF 6.9 THIS AM. RECEIVED ONE UNIT PRBS'S AND TOLERATED WELL. BEDSIDE SWALLOW PERFORMED WITH NO OBVIOUS CONCERNS THIS AM. PT MADE NPO AT LUNCHTIME PER ORDERS FROM MD JO PENDING SURGICAL CONSULT. MD DUCKWORTH TO BEDSIDE THIS PM. MD DUCKWORTH CONSULTING GENERAL SURGERY REGARDING RIGHT BUTTOCK WOUND. MD DUCKWORTH WITH OK FOR PT TO EAT. RIGHT SHOULDER PAIN BEING TREATED PER EMAR. PT REPOSITIONED FREQUENTLY THROUGHOUT SHIFT. PT CURRENTLY RESTING IN BED. FAMILY IN ROOM. NO FURTHER NEEDS AT THIS TIME. CALL LIGHT WITHIN REACH.
[2022-06-14] VITALS (7 sets, daily range): BP systolic 116–139; BP diastolic 52–79
[2022-06-14 04:31] LABS: BASOPHILS ABSOLUTE AUTO 0.06 K/mm3 (0.00-0.23); BASOPHILS PERCENT AUTO 1 % (0-2); EOSINOPHILS ABSOLUTE AUTO 0.47 K/mm3 (0.00-0.68); EOSINOPHILS PERCENT AUTO 7 % (0-6); Hematocrit 27.1 % (37.0-53.0); Hemoglobin 8.2 g/dL (13.5-17.5); IMMATURE GRAN ABSOLUTE AUTO 0.09 K/mm3 (0.00-0.10); IMMATURE GRAN PERCENT AUTO 1 % (0-1); LYMPHOCYTES ABSOLUTE AUTO 0.72 K/mm3 (0.84-5.20); LYMPHOCYTES PERCENT AUTO 10 % (21-46); MONOCYTES ABSOLUTE AUTO 0.35 K/mm3 (0.16-1.47); MONOCYTES PERCENT AUTO 5 % (4-13); Mean Corpuscular HGB 27.6 pg (26.0-34.0); Mean Corpuscular HGB Conc 30.3 g/dL (31.5-36.5); Mean Corpuscular Volume 91 fL (80-100); Mean Platelet Volume 9.1 fL (9.1-12.4); NEUTROPHILS ABSOLUTE AUTO 5.44 K/mm3 (1.96-9.15); NEUTROPHILS PERCENT AUTO 76 % (41-73); Platelet Count 581 K/mm3 (150-400); RDW Coefficient Variation 15.9 % (11.7-14.2); RDW Standard Deviation 53.4 fL (35.1-46.3); Red Blood Cell Count 2.97 M/mm3 (4.30-5.90); White Blood Cell Count 7.13 K/mm3 (4.00-11.30)
[2022-06-14 04:56] LABS: Magnesium, Blood 2.2 mg/dL (1.6-2.4)
[2022-06-14 05:38] LABS: Albumin, Blood 1.5 g/dL (3.4-5.0); Anion Gap Unable to Calculate mmol/L (6-16); Blood Urea Nitrogen 57 mg/dL (8-24); Bun/Creatinine Ratio 49.6 (12.0-20.0); CO2, Blood 36 mmol/L (21-32); Chloride, Blood 109 mmol/L (98-108); Creatinine, Blood 1.15 mg/dL (0.60-1.20); Glomerular Filtration Rate 69 (60-); Glucose, Blood 189 mg/dL (70-99); Phosphorus, Blood 3.4 mg/dL (2.5-4.9); Potassium, Blood 4.1 mmol/L (3.5-5.5); Sodium, Blood 143 mmol/L (136-145)
--- NOTE | 2022-06-14 06:16 | NUR ---
PATIENT AOX4 AND FOLLOWS COMMANDS. SR/ST WITH STABLE BP. 3L NC. NAUSEA OVERNIGHT, RELIEVED BY ZOFRAN. NPO SINCE 0000. WEN IN PLACE.
--- NOTE | 2022-06-14 07:53 | NUR ---
ASSUMED CARE: ASSUMED CARE OF PT APPROX 0715. PT DROWSY IN BED. ABLE TO ANSWER QUESTIONS APPROPRIATELY. ALERT AND ORIENTED X4. ABLE TO FOLLOW COMMANDS. VSS. SINUS TACH PER MONITOR. WEN CATHETER IN PLACE WITH PUREWICK CATCHING LEAKING URINE. NS INFUSING AT 50 ML/HR IN MEDIPORT. PT VOICED FRUSTRATION WITH NPO ORDERS AND OVERALL HEALTH STATUS. EDUCATED ON NPO PENDING SURGICAL CONSULT. NO FURTHER NEEDS AT THIS TIME. CALL LIGHT WITHIN REACH.
[2022-06-14] MEDS ORDERED: OMEPRAZOLE20 M2 PO (11:32)
[2022-06-14] MEDS ORDERED: Klor-Con-Ef 2525 MEQ PO (11:33)
[2022-06-14] MEDS ORDERED: SOAANZ20 M3 PO (11:34)
[2022-06-14] MEDS ORDERED: TRIM100 PO (11:34)
[2022-06-14] MEDS ORDERED: FUROSEMIDE40 MG PO (11:34)
[2022-06-14] MEDS ORDERED: TELMISARTAN40 MG PO (11:36)
[2022-06-14] MEDS ORDERED: LOSA50 PO (11:36)
[2022-06-14] MEDS ORDERED: ZANAFLEX413 PO (11:37)
[2022-06-14] MEDS ORDERED: ATOR40TA PO (11:37)
--- NOTE | 2022-06-14 14:23 | NUR ---
PATIENT UPDATE: CALL PLACED TO MD PUTNAM. MD PUTNAM ADVISED THAT HE WILL SEE THE PT TOMORROW AM. MD PUTNAM CLEARED PT TO EAT TODAY BUT RESTART NPO AT MIDNIGHT. CALL PLACED TO MD JO. MD JO UPDATED ON MD PUTNAM'S PLAN. MD JO WITH ORDERS FOR ADA DIET.
--- NOTE | 2022-06-14 17:38 | NUR ---
SHIFT SUMMARY: PT A&OX4 AND LETHARGIC. ABLE TO ANSWER QUESTIONS APPROPRIATELY AND MAKE NEEDS KNOWN. PT REMAINED ON 3L O2 VIA N/C WITH SATS >92%. RHYTHM NS/ST WITH RATE MOSTLY 90-100'S. INCREASED TO 120-130'S INTERMITTENTLY. METOPROLOL GIVEN PER EMAR. HR CURRENTLY 90'S. NS INFUSING IN MEDIPORT AT 50ML/HR. CHRONIC WEN IN PLACE DRAINING YELLOW URINE WITH SEDIMENT. COLOSTOMY PRODUCING FORMED BROWN STOOL. PT NPO THIS AM FOR POSSIBLE SURGICAL CONSULT. MD PUTNAM CLEARED PT TO EAT TODAY. MD JO NOTIFIED. MD JO ORDERED ADA DIET. MD PUTNAM WITH NPO ORDERS TO START AT MIDNIGHT PENDING SURGICAL CONSULT IN AM. RIGHT SHOULDER PAIN AND HEADACHE TREATED PER EMAR. OCCASIONAL NAUSEA THIS SHIFT. ZOFRAN ADMINISTERED PER EMAR. PT REPOSITIONED FREQUENTLY THROUGHOUT SHIFT. BED BATH COMPLETED TODAY. PT CURRENTLY RESTING IN BED. AND DAUGHTER AT BEDSIDE. NO FURTHER NEEDS AT THIS TIME. CALL LIGHT WITHIN REACH.
--- NOTE | 2022-06-14 20:43 | NUR ---
ASSUMPTION OF CARE THIS RN ASSUMED CARE OF PATIENT AT 1900. REPORT TAKEN FROM ALINE JOHNSON. PATIENT ALERT AND ORIENTED FULLY. ABLE TO MAKE NEEDS KNOWN. REPORTING 8/10 PAIN IN RT SHOULDER AT TIME OF SHIFT CHANGE. MEDICATED PER EMAR. SR/ST ON MONITOR WITH HR 80-100'S. BP STABLE. SPO2 >92% ON 3L VIA NC. AFEBRILE. PATIENT BEING REPOSITIONED Q2HRS AND PRN. WEN CATHETER DRAINING PER EMAR. OSTOMY INTACT, NO OUTPUT NOTED AT THIS TIME. WEAKNESS NOTED THROUGHOUT. UNABLE TO HOLD CUP TO DRINK D/T WEAKNESS AND BASELINE TREMOR. PPP. BS+. BED IN LOWEST POSITION AND CALL LIGHT WITHIN REACH.
[2022-06-15] VITALS (7 sets, daily range): BP systolic 118–151; BP diastolic 41–57
--- NOTE | 2022-06-15 05:13 | NUR ---
SHIFT SUMMARY NO ACUTE CHANGES OVERNIGHT. ALERT AND ORIENTED FULLY. ABLE TO MAKE NEEDS KNOWN. MEDICATED PER EMAR FOR PAIN. BP STABLE. SR/ST ON MONITOR WITH HR 80-100'S. SPO2 >92% ON 3L VIA NC. AFEBRILE. PATIENT INFUSING NS TKO INTO MEDIPORT DURING THIS SHIFT. MEDIPORT UNABLE TO DRAW BLOOD FOR LABS THIS AM. REACCESSED X2 BY HAND GLOVE CLEANERALEX ROBERTS. PATIENT STATING HE CAN "TASTE" THE FLUSHES; NO RESISTANCE WITH FLUSHES, BUT STILL NO BLOOD RETURN; THIS RN WILL REPORT TO DAYSKYFT RN; [facility] CONTINUES TO HAVE NS INFUSING TKO AT THIS TIME. DRESSINGS ON BUTTOCKS CHANGED THIS AM. REPOSITIONING DONE Q2HRS. PATIENT HAS BEEN NPO SINCE MIDNIGHT. WEN CATHETER DRAINING TO GRAVITY. BED IN LOWEST POSITION AND CALL LIGHT WITHIN REACH. THIS RN WILL CONTINUE TO MONITOR UNTIL SHIFT CHAANGE AT 0700.
[2022-06-15 05:59] LABS: BASOPHILS ABSOLUTE AUTO 0.07 K/mm3 (0.00-0.23); BASOPHILS PERCENT AUTO 1 % (0-2); EOSINOPHILS ABSOLUTE AUTO 0.49 K/mm3 (0.00-0.68); EOSINOPHILS PERCENT AUTO 9 % (0-6); Hematocrit 30.1 % (37.0-53.0); Hemoglobin 8.9 g/dL (13.5-17.5); IMMATURE GRAN ABSOLUTE AUTO 0.27 K/mm3 (0.00-0.10); IMMATURE GRAN PERCENT AUTO 5 % (0-1); LYMPHOCYTES ABSOLUTE AUTO 0.69 K/mm3 (0.84-5.20); LYMPHOCYTES PERCENT AUTO 12 % (21-46); MONOCYTES ABSOLUTE AUTO 0.39 K/mm3 (0.16-1.47); MONOCYTES PERCENT AUTO 7 % (4-13); Mean Corpuscular HGB 27.5 pg (26.0-34.0); Mean Corpuscular HGB Conc 29.6 g/dL (31.5-36.5); Mean Corpuscular Volume 93 fL (80-100); NEUTROPHILS ABSOLUTE AUTO 3.78 K/mm3 (1.96-9.15); NEUTROPHILS PERCENT AUTO 67 % (41-73); Platelet Count 487 K/mm3 (150-400); RDW Coefficient Variation 15.6 % (11.7-14.2); Red Blood Cell Count 3.24 M/mm3 (4.30-5.90); White Blood Cell Count 5.69 K/mm3 (4.00-11.30)
[2022-06-15 06:17] LABS: Magnesium, Blood 2.3 mg/dL (1.6-2.4)
[2022-06-15 06:43] LABS: Albumin, Blood 1.5 g/dL (3.4-5.0); Anion Gap Unable to Calculate mmol/L (6-16); Blood Urea Nitrogen 52 mg/dL (8-24); Bun/Creatinine Ratio 56.9 (12.0-20.0); CO2, Blood 37 mmol/L (21-32); Calcium, Blood 8.1 mg/dL (8.5-10.1); Chloride, Blood 108 mmol/L (98-108); Creatinine, Blood 0.91 mg/dL (0.60-1.20); Glomerular Filtration Rate 92 (60-); Glucose, Blood 157 mg/dL (70-99); Phosphorus, Blood 3.6 mg/dL (2.5-4.9); Potassium, Blood 4.4 mmol/L (3.5-5.5); Sodium, Blood 143 mmol/L (136-145)
--- NOTE | 2022-06-15 21:03 | NUR ---
ASSUMPTION OF CARE THIS RN ASSUMED CARE OF PATIENT AT 1900. REPORT TAKEN FROM MADHURI JOHNSON. PATIENT ALERT AND ORIENTED FULLY. ABLE TO MAKE NEEDS KNOWN. PATIENT COMPLAINING OF PRODUCTIVE COUGH AT THIS TIME AND STATES THAT HE STARTED COUGHING WHILE EATING HIS DINNER THIS EVENING. PATIENT GIVEN FLUTTER VALVE BY RT GIOVANY. COARSE LUNG SOUNDS HEARD IN UPPER LOBES. PATIENT ENCOURAGED TO COUGH AND IS USING SUCTION FOR SPUTUM, WITH NOTED SPUTUM BEING THICK AND WHITE/YELLOW IN COLOR. PATIENT IS ON A REGULAR DIET AT THIS TIME; PILLS GIVEN CRUSHED IN APPLESAUCE D/T CONCERN FOR ASPIRATION; PATIENT TOOK PILLS WELL WITH NO NOTED COUGHING. PATIENT'S HOB ELEVATED AT THIS TIME. SPO2 >92% ON 3L VIA NC. BP STABLE. AFEBRILE. SR/ST WITH HR 90-100'S. PATIENT BEING REPOSITIONED Q2HRS. WEN CATHETER DRAINING TO GRAVITY; PUREWICK IN PLACE D/T CHRONIC WEN LEAKING. OSTOMY PATENT; NO NOTED OUTPUT AT THIS TIME. BED IN LOWEST POSITION AND CALL LIGHT WITHIN REACH.
[2022-06-16 03:29] VITALS: BP 125/51
--- NOTE | 2022-06-16 04:36 | NUR ---
SHIFT SUMMARY NO ACUTE CHANGES OVERNIGHT. ALERT AND ORIENTED FULLY. ABLE TO MAKE NEEDS KNOWN. SEE PREVIOUS NOTE. PATIENT IS NO LONGER COUGHING; LS LESS COARSE IN UPPER LOBES. BP STABLE. SR/ST BBB WITH PAC'S AND HR 80-100'S. AFEBRILE. SPO2 >92% ON 2L VIA NC CURRENTLY. WEN DRAINING TO GRAVITY. OSTOMY PATENT. WOUND DRESSING CHANGES FOR BUTTOCKS WOUNDS DONE THIS AM. REPOSITIONING Q2HRS. BED IN LOWEST POSITION AND CALL LIGHT WITHIN REACH. THIS RN WILL CONTINUE TO MONITOR UNTIL SHIFT CHANGE AT 0700.
[2022-06-16 04:49] LABS: Hematocrit 30.1 % (37.0-53.0); Hemoglobin 8.8 g/dL (13.5-17.5); Mean Corpuscular HGB 27.2 pg (26.0-34.0); Mean Corpuscular HGB Conc 29.2 g/dL (31.5-36.5); Mean Corpuscular Volume 93 fL (80-100); Mean Platelet Volume 9.1 fL (9.1-12.4); Platelet Count 465 K/mm3 (150-400); RDW Coefficient Variation 15.5 % (11.7-14.2); RDW Standard Deviation 53.1 fL (35.1-46.3); Red Blood Cell Count 3.23 M/mm3 (4.30-5.90); White Blood Cell Count 6.28 K/mm3 (4.00-11.30)
[2022-06-16 05:11] LABS: Magnesium, Blood 2.2 mg/dL (1.6-2.4)
[2022-06-16 05:17] LABS: Albumin, Blood 1.6 g/dL (3.4-5.0); Anion Gap Unable to Calculate mmol/L (6-16); Blood Urea Nitrogen 54 mg/dL (8-24); Bun/Creatinine Ratio 65.5 (12.0-20.0); CO2, Blood 37 mmol/L (21-32); Calcium, Blood 8.3 mg/dL (8.5-10.1); Chloride, Blood 106 mmol/L (98-108); Creatinine, Blood 0.82 mg/dL (0.60-1.20); Glomerular Filtration Rate 96 (60-); Glucose, Blood 177 mg/dL (70-99); Phosphorus, Blood 3.6 mg/dL (2.5-4.9); Potassium, Blood 4.7 mmol/L (3.5-5.5); Sodium, Blood 141 mmol/L (136-145)
[2022-06-16 05:41] LABS: BAND PERCENT MAN 6 % (0-8); BASOPHILS ABSOLUTE MAN 0.06 K/mm3 (0.00-0.23); BASOPHILS PERCENT MAN 1 % (0-2); EOSINOPHILS ABSOLUTE MAN 0.06 K/mm3 (0.00-0.68); EOSINOPHILS PERCENT MAN 1 % (0-6); LYMPHOCYTES ABSOLUTE MAN 0.94 K/mm3 (0.84-5.20); LYMPHOCYTES PERCENT MAN 15 % (21-46); METAMYELOCYTE ABSOLUTE MAN 0.06 K/mm3 (0.00-0.00); METAMYELOCYTE PERCENT MAN 1 % (0-0); MONOCYTES ABSOLUTE MAN 0.75 K/mm3 (0.16-1.47); MONOCYTES PERCENT MAN 12 % (4-13); MYELOCYTE ABSOLUTE MAN 0.18 K/mm3 (0.00-0.00); MYELOCYTE PERCENT MAN 3 % (0-0); SEG NEUTROPHILS PERCENT MAN 61 % (41-73); TOTAL CELLS COUNTED 100
[2022-06-16 11:56] VITALS: BP 143/83
--- NOTE | 2022-06-16 14:49 | NUR ---
ASSUMPTION OF CARE This RN assumed care at 1430 from Pilar JOHNSON. Patient is in room visiting with family. Patinet is alert and oriented x4. patient reports no pain, chest pain, or shortness of breath. Per report from Pilar JOHNSON, wound care was done in AM, dressings are intact and clean. call light within reach and bed in lowest position.
[2022-06-16 15:02] VITALS: BP 143/53
--- NOTE | 2022-06-16 16:58 | NUR ---
shift summary patient neuro remains intact. vital signs remain stable. patient uses call light to make needs known. min draining with gravity. no acute changes.
[2022-06-16 20:46] VITALS: BP 155/53
--- NOTE | 2022-06-16 21:15 | NUR ---
ASSUMPTION OF CARE THIS RN ASSUMED CARE OF PATIENT AT 1900. REPORT TAKEN FROM DIONE JOHNSON. PATIENT ALERT AND ORIENTED FULLY. ABLE TO MAKE NEEDS KNOWN. VITALS STABLE. ON 1L VIA NC. REPOSITIONING Q2HRS. OSTOMY INTACT. WEN CATHETER DRAINING TO GRAVITY. MEDIPORT INFUSING NS TKO. MEDICATING PER EMAR FOR RT SHOULDER PAIN. BED IN LOWEST POSITION AND CALL LIGHT WITHIN REACH.
[2022-06-17 03:19] VITALS: BP 120/42
[2022-06-17 04:44] LABS: Hematocrit 28.1 % (37.0-53.0); Mean Corpuscular HGB 26.6 pg (26.0-34.0); Mean Corpuscular HGB Conc 28.5 g/dL (31.5-36.5); Mean Corpuscular Volume 93 fL (80-100); Platelet Count 372 K/mm3 (150-400); RDW Coefficient Variation 15.3 % (11.7-14.2); RDW Standard Deviation 52.7 fL (35.1-46.3); Red Blood Cell Count 3.01 M/mm3 (4.30-5.90); White Blood Cell Count 7.57 K/mm3 (4.00-11.30)
[2022-06-17 05:10] LABS: Albumin, Blood 1.7 g/dL (3.4-5.0); Anion Gap Unable to Calculate mmol/L (6-16); Blood Urea Nitrogen 54 mg/dL (8-24); Bun/Creatinine Ratio 76.8 (12.0-20.0); CO2, Blood 38 mmol/L (21-32); Calcium, Blood 8.3 mg/dL (8.5-10.1); Chloride, Blood 105 mmol/L (98-108); Glomerular Filtration Rate 100 (60-); Glucose, Blood 188 mg/dL (70-99); Phosphorus, Blood 2.9 mg/dL (2.5-4.9); Potassium, Blood 4.7 mmol/L (3.5-5.5); Sodium, Blood 141 mmol/L (136-145)
--- NOTE | 2022-06-17 05:29 | NUR ---
SHIFT SUMMARY NO ACUTE CHANGES OVERNIGHT. ON 1L VIA NC WITH SPO2 >92%. OTHER VITALS STABLE. REPOSITIONING Q2HRS. PATIENT NEURO WNL; ABLE TO MAKE NEEDS KNOWN. WEN CATHETER DRAINING TO GRAVITY. OSTOMY PATENT. WOUND CARE DONE THIS AM 06/17 AT 0500. MEDIPORT INFUSING NS TKO. BED IN LOWEST POSITION AND CALL LIGHT WITHIN REACH. THIS RN WILL CONTINUE TO MONITOR UNTIL SHIFT CHANGE AT 0700.
[2022-06-17 05:36] LABS: BAND PERCENT MAN 1 % (0-8); BASOPHILS ABSOLUTE MAN 0.07 K/mm3 (0.00-0.23); BASOPHILS PERCENT MAN 1 % (0-2); EOSINOPHILS ABSOLUTE MAN 0.52 K/mm3 (0.00-0.68); EOSINOPHILS PERCENT MAN 7 % (0-6); LYMPHOCYTES ABSOLUTE MAN 0.83 K/mm3 (0.84-5.20); LYMPHOCYTES PERCENT MAN 11 % (21-46); METAMYELOCYTE ABSOLUTE MAN 0.07 K/mm3 (0.00-0.00); METAMYELOCYTE PERCENT MAN 1 % (0-0); MONOCYTES ABSOLUTE MAN 0.22 K/mm3 (0.16-1.47); MONOCYTES PERCENT MAN 3 % (4-13); MYELOCYTE PERCENT MAN 4 % (0-0); NEUTROPHILS ABSOLUTE MAN 5.52 K/mm3 (1.96-9.15); SEG NEUTROPHILS PERCENT MAN 72 % (41-73); TOTAL CELLS COUNTED 100
[2022-06-17 07:41] VITALS: BP 141/55
[2022-06-17 11:17] VITALS: BP 139/58
--- NOTE | 2022-06-17 14:42 | NUR ---
SHIFT SUMMARY PT IS A&OX4, Q2 TURN, Q6 CBG, HAS AN OSTOMY W/ FORMED BROWN STOOLS, AND HAS A CHRONIC WEN DRAINING TO GRAVITY. WEN LEAKS SO A PURWICK IS SET UP AROUND IT TO HELP ELIMINATE PT SITTING IN URINE AND PROTECT HIS SKIN. WOUND CARE WAS COMPLETE THIS SHIFT AND DRESSING ARE DRY AND INTACT. PT HAS HAD NO COMPLAINTS OTHER THAN CHRONIC PAIN THIS SHIFT WHICH HE RECIEVES AROUND THE CLOCK PAIN MEDICATIONS FOR. HE WAS ON 0.5L NC AT THE START OF THE SHIFT AND WAS TAKEN OFF OF IT DUE TO SP02 >95%. AFTER A FEW HOURS HE WAS FEELING SOB SO HE WAS PLACED BACK ON 1L NC AND THE SOB HAS SUBSIDED. HIS SP02 REMAINED >95% EVEN WHEN FEELING SOB. ON TELE HE HAS BEEN RUNNING SR/ST, AND HE DENIES ANY ANGINA/CHEST PRESSURE. PT TX'D TO ROOM 306. REPORT GIVEN TO FREDY JOHNSON.
[2022-06-17 15:21] VITALS: BP 138/55
[2022-06-17 19:32] VITALS: BP 129/46
--- NOTE | 2022-06-17 20:08 | NUR ---
SHIFT SUMMARY: ASSUMED CARE OF PATIENT UPON HIS TRANSFER FROM PCU. HE IS KNOWN TO THIS AUTHOR. A&O X 3, A BIT SLOW TO RESPOND. HAS CHRONIC PAIN, MEDICATED PER EMAR. TELEMETRY SHOWED AFIB 80'S. HAS BEEN USING O2 FOR YEARS; PLACED ON 2 L/MIN NC. CONTACT PRECAUTIONS FOR MRSA IN WOUND. WEN DRAINING ADEQUATE URINE. MEDIPORT ACCESSED, DOES NOT DRAW BLOOD. TAKING PILLS WHOLE IN APPLESAUCE. IS ON SPECIAL WOUND CARE MATTRESS.
[2022-06-18 02:25] VITALS: BP 119/50
--- NOTE | 2022-06-18 04:44 | NUR ---
HEALTH SAFETY INSTRUCTOR SUMMARY VSS. ALERT TO QUESTIONS ASKED. JOKED WITH STAFF AT TIMES. IV ANTIBIOTICS AND PAIN MEDS ADMINISTERED ORDERED - SEE MAR FOR DETAILS. O2 AT 2-3 L/MIN PER NC. HOB ELEVATED FOR COMFORT. MED TELE CONTINUES, WAS SINUS RHYTHM AT 94 WHEN CHECKING WITH FARMWORKER POULTRY EARLIER. ACCU CHECKS CONTINUE Q 6 HRS. WEN DRAINING. HAS BEEN RESTING QUIETLY WITH FEW INTERUPTIONS. COLOSTOMY CARE DONE - BROWN FECAL MATTER. DRESSINGS CDI. CALL LIGHT IN REACH. ISOLATION PRECAUTIONS CONTINUE. WILL CONTINUE TO MONITOR
[2022-06-18 04:53] LABS: Hematocrit 29.1 % (37.0-53.0); Hemoglobin 8.6 g/dL (13.5-17.5)
[2022-06-18 05:10] LABS: Albumin, Blood 1.7 g/dL (3.4-5.0); Anion Gap Unable to Calculate mmol/L (6-16); Blood Urea Nitrogen 46 mg/dL (8-24); Bun/Creatinine Ratio 76.9 (12.0-20.0); CO2, Blood 38 mmol/L (21-32); Calcium, Blood 8.2 mg/dL (8.5-10.1); Chloride, Blood 103 mmol/L (98-108); Glomerular Filtration Rate 105 (60-); Glucose, Blood 194 mg/dL (70-99); Magnesium, Blood 2.2 mg/dL (1.6-2.4); Phosphorus, Blood 2.5 mg/dL (2.5-4.9); Potassium, Blood 4.7 mmol/L (3.5-5.5); Sodium, Blood 138 mmol/L (136-145)
[2022-06-18 08:16] VITALS: BP 136/48
[2022-06-18 15:38] VITALS: BP 129/51
--- NOTE | 2022-06-18 19:25 | NUR ---
DRESSING CHANGE DRESSING ON RIGHT BOTTOM ASSESSED. OLD DRESSING SATURATED WITH LIGHT PINK FLUIDS. LARGE STAGE 4 WOUND NOTED. PT STATED HE WAS BEEN DEALING WITH WOUND FOR 15 YEARS. WOUND CLEANED AND DRIED. NEW DRESSING PLACED.
--- NOTE | 2022-06-18 19:28 | NUR ---
SHIFT SUMMARY PT A&O X4 AND PLEASANT. PT C/O PAIN IN RIGHT SHOULDER T/O DAY, PT STATED THE PAIN WAS FROM A PREVIOUS SURGERY. MEDICATED PER EMAR. DRESSING CHANGE ON LEFT BOTTOM TODAY. PT C/O NAUSEA MORNING. MEDICATED PER EMAR WITH GOOD EFFECT. PT ABLE TO REST IN AFTERNOON. BED IN LOWEST POSITION AND CALL LIGHT IN REACH.
[2022-06-18 20:04] VITALS: BP 115/46
[2022-06-19 02:47] VITALS: BP 119/54
--- NOTE | 2022-06-19 04:47 | NUR ---
PT WOUND TO L BUTTOCK CLEANED AND W/D DRESSING PLACED WITH ABD OVER. PT HAS ORDER FOR WOUND CARE CONSULT, AT THIS TIME NO WOUND CARE ORDERS ARE IN PLACE. ATTEMPT Q2HR TURNS, PT REFUSES MOST TURNS. PT PAINFUL IN BACK, SHOULDER, STATING IT IS NOT NEW, MEDICATED WHEN ABLE WITH PRNS. WEN LEAKING WHICH MDS ARE AWARE, PUREWICK PLACED TO ASSIST WITH KEEPING TAVON AND BUTTOCK DRY TO ASSIST WITH WOUND HEALING.
[2022-06-19 06:52] LABS: Albumin, Blood 1.8 g/dL (3.4-5.0); Anion Gap 0 mmol/L (6-16); Blood Urea Nitrogen 49 mg/dL (8-24); Bun/Creatinine Ratio 82.6 (12.0-20.0); CO2, Blood 35 mmol/L (21-32); Calcium, Blood 8.9 mg/dL (8.5-10.1); Chloride, Blood 103 mmol/L (98-108); Creatinine, Blood 0.59 mg/dL (0.60-1.20); Glomerular Filtration Rate 106 (60-); Glucose, Blood 197 mg/dL (70-99); Magnesium, Blood 2.2 mg/dL (1.6-2.4); Phosphorus, Blood 3.5 mg/dL (2.5-4.9); Sodium, Blood 138 mmol/L (136-145)
[2022-06-19 07:58] VITALS: BP 133/49
[2022-06-19 16:44] VITALS: BP 123/47
--- NOTE | 2022-06-19 17:45 | NUR ---
SHIFT SUMMARY WOUND CARE COMPLETED TWICE THIS SHIFT. SECOND TIME COMPLETED WITH WOUND CARE NURSE, BULL. CALCIUM ALGINATE TO WOUND BEDS ON SACRUM AND R ANKLE. DRESSINGS TO BE CHANGES DAILY AND NEEDED. COPIUS AMOUNTS OF DRAINAGE. WEN IN PLACE. CONTINUES TO LEAK. PURE WICK IN USE TO HELP WITH LEAKING, THIS SEEMS TO BE HELPING KEEP THE SKIN LESS MOIST. MEDIPORT PATENT & RUNNING TKO WITH NS. PT REFUSED AM REPOSITIONING. AFTER INITIAL WOUND CARE THIS AM, PT EDUCATED ON THE NEED TO BE REPOSITIONING AND PREVENTING HIS WOUNDS FROM GETTING WORSE. PT STATED "I AM ON AN AIR BED, SO I DONT HAVE TO REPOSITION". PT EDUCATED THAT THE AIR BED IS A TOOL AND HELP PREVENT BREAKDOWN BUT DOES NOT REPLACE REPOSITIONING. PT STATES HE UNDERSTANDS AND HAS BEEN COMPLIANT WITH REPOSITIONING SINCE. NO OTHER ACUTE CHANGES IN ASSESSMENT AT THIS TIME. VS REVIEWED. CALL LIGHT IN REACH. DENIES OTHER NEEDS AT THIS TIME.
[2022-06-19 21:09] VITALS: BP 145/53
--- NOTE | 2022-06-20 03:40 | NUR ---
CHIROPRACTIC TEACHER SUMMARY VSS. MED TELE SINUS RHYTHM AT 87. IVF OF NS AT KVO, ANTIBIOTICS INFUSING ORDERED. RECEIVNG ANALGESICS ASORDERED AND INTERMITTENTLY FOR BREAK OUT PAIN - SEE MAR FOR DETAILS. ISOLATION PRECAUTIONS MAINTAINED. CALL LIGHT IN REACH. DRESSINGS INTACT. WILL CONTINUE TO MONITOR
[2022-06-20 04:02] VITALS: BP 147/62
[2022-06-20 07:02] LABS: Hemoglobin 8.3 g/dL (13.5-17.5)
[2022-06-20 07:21] LABS: Albumin, Blood 1.9 g/dL (3.4-5.0); Anion Gap 3 mmol/L (6-16); Blood Urea Nitrogen 50 mg/dL (8-24); Bun/Creatinine Ratio 85.8 (12.0-20.0); CO2, Blood 35 mmol/L (21-32); Calcium, Blood 8.7 mg/dL (8.5-10.1); Chloride, Blood 102 mmol/L (98-108); Creatinine, Blood 0.58 mg/dL (0.60-1.20); Glomerular Filtration Rate 106 (60-); Glucose, Blood 229 mg/dL (70-99); Magnesium, Blood 2.1 mg/dL (1.6-2.4); Phosphorus, Blood 2.9 mg/dL (2.5-4.9); Sodium, Blood 140 mmol/L (136-145)
[2022-06-20 08:27] VITALS: BP 130/50
[2022-06-20 16:28] VITALS: BP 139/57
--- NOTE | 2022-06-20 16:42 | NUR ---
PT A/OX4, PLEASANT AND COOPERATIVE. THE PT IS BED BOUND DUE TO LEFT AKA AND RIGHT LEG PARALYSIS. PT APPEARS TO BE BREATHING EASILY AT REST ON 1.5L/MIN O2. THE PTS SACERAL AND RIFGT ANKLE DRESSINGS CHANGED TODAY PER WOUND CARE INSTRUCTIONS. THEPT WAS MEDICATED FOR PAIN T/O THE DAY. PT REPOSITIONED TODAY T/O THE DAY. CALL LIGHT IN REACH WILL CONTINUE TO MONITOR AND ASSESS FOR CHANGES
[2022-06-20 19:46] VITALS: BP 141/46
[2022-06-21 04:14] VITALS: BP 148/76
--- NOTE | 2022-06-21 04:33 | NUR ---
SHIFT UNREMARKABLE. PT HAS SLEPT THROUGH MUCH OF SHIFT, AWAKES OCCASIONALLY TO REQUEST PAIN MEDICATION THEN FALLS BACK ASLEEP THERAFTER. AOX4, VERY PLEASANT AND COOPERATIVE WITH CARE. WEN IN PLACE AND DRAINING WELL. LEAKAGE AROUND FOELY NOTED, PUREWICK IS ALSO IN PLACE TO COLLECT LEAKED URINE. PAIN WELL MANAGED ON CURRENT MEDICATION REGIMEN. FOLLOWED BY WOUND CARE FOR WOUNDS, PHOTOS IN CHART. DRESSINGS NEED CHANGED ONCE PER DAY PER DAY SHIFT REPORT, CHANGED YESTERDAY ON DAY SHIFT. POSSIBLE DISCHARGE TODAY BACK HOME. TELE HAS BEEN ON, NO EVENTS OVER COURSE OF SHIFT. POSITIONAL CHANGES TOLERATED. NS RUNNING KVO THROUGH [place]. BED LOCKED IN LOWEST POSITION. CALL LIGHT LEFT WITHIN REACH.
[2022-06-21 06:34] LABS: Albumin, Blood 1.8 g/dL (3.4-5.0); Anion Gap 0 mmol/L (6-16); Blood Urea Nitrogen 52 mg/dL (8-24); Bun/Creatinine Ratio 85.1 (12.0-20.0); CO2, Blood 39 mmol/L (21-32); Calcium, Blood 8.5 mg/dL (8.5-10.1); Chloride, Blood 102 mmol/L (98-108); Creatinine, Blood 0.61 mg/dL (0.60-1.20); Glomerular Filtration Rate 105 (60-); Glucose, Blood 203 mg/dL (70-99); Magnesium, Blood 2.1 mg/dL (1.6-2.4); Potassium, Blood 5.1 mmol/L (3.5-5.5); Sodium, Blood 141 mmol/L (136-145)
[2022-06-21 08:12] VITALS: BP 129/43
--- NOTE | 2022-06-21 10:04 | NUR ---
Attended medical floor IDT meeting this moring. Tiago will be going home today with a resumption of his HH orders. Spoke with Tiago this morning. He reports he is finally going home today, he reports he has been here 10 days. Plan is to resume HH and to contact infectious disease MD to manage him as an outpatient. Reviewed CM notes and plan is for [facility] with a referral to the [facility].
[2022-06-21] MEDS ORDERED: VITAMIN A & D OI5 GM TOP (12:00)
[2022-06-21] MEDS ORDERED: Oxycodone HCl20 M1 PO (15:36)
--- NOTE | 2022-06-21 17:44 | NUR ---
PATIENT WAS DISCHARGED AROUND 1700. PATIENT VERBALIZED UNDERSTANDING OF DISCHARGE INSTRUCTIONS. EDUCATION WAS PROVIDED ON TOXIC METABOLIC ENCEPHALITIS AND UROSEPSIS. PATIENT WAS INSTRUCTED TO FOLLOW UP WITH PCP IN 3 DAYS, AND TO FOLLOW UP WITH BOTH HIS UROLOGIST, AND STONEMASON SUPERVISOR IN A WEEK. PATIENT VERBALIZED UNDERSTANDING AND INTENT TO FOLLOW INSTRUCTION
--- NOTE | 2022-06-21 17:50 | NUR ---
PT ASSESSMENT I WAS PRESENT DURING THE STUDENT NURSE DELBERT'S AM ASSEEMENT ON THIS PATIENT AND AGREE WITH THE DOCUMENTED ASSESSMENT
--- NOTE | 2022-06-21 17:51 | NUR ---
PT DISCHARGED THE PT VERBALIZED UNDERSTANDING OF THE DC INSTRUCTIONS. PTS PRESCIPTION FAXED TO REQUESTED PHARMACY. THE PTS WOUND DRESSING WERE CHANGED PRIOR TO DC BY THIS RN AND THE WOUND CENTER RN SHARAN. PT WAS LIFTED INTO HIS WHEELCAHIR AND ACCOMPANIED OUT BY HIS AND THE STUDENT RN DELBERT. PT WAS REMINDED TO FOLLOW UP WITH HIS PCP'S
== END 2022-06-21 17:15 | disposition home health service (06) | DRG 698 ==
LOC: ER 14:11 → PCU 16:36 → MEDS 06-17 14:32
PROVIDERS: Emergency Medicine; Internal Medicine Nephrology; ADMIT Family Medicine
PROC: 3E03329 Introduction of Other Anti-infective into Peripheral Vein, Percutaneous Approach (ICD-10-PCS; principal; 2022-06-11)
PROC: 5A09357 Assistance with Respiratory Ventilation, Less than 24 Consecutive Hours, Continuous Positive Airway Pressure (ICD-10-PCS; 2022-06-11)
PROC: 4A033R1 Measurement of Arterial Saturation, Peripheral, Percutaneous Approach (ICD-10-PCS; 2022-06-11)
PROC: 0T2BX0Z Change Drainage Device in Bladder, External Approach (ICD-10-PCS; 2022-06-11)
PROC: 30233N1 Transfusion of Nonautologous Red Blood Cells into Peripheral Vein, Percutaneous Approach (ICD-10-PCS; 2022-06-13)
DX: T83.511A Infection and inflammatory reaction due to indwelling urethral catheter, initial encounter (principal); A41.50 Gram-negative sepsis, unspecified; G92.8 Other toxic encephalopathy; L89.154 Pressure ulcer of sacral region, stage 4; L89.514 Pressure ulcer of right ankle, stage 4; J96.01 Acute respiratory failure with hypoxia; R65.20 Severe sepsis without septic shock; J96.02 Acute respiratory failure with hypercapnia; N13.6 Pyonephrosis; M86.68 Other chronic osteomyelitis, other site; N17.9 Acute kidney failure, unspecified; G82.20 Paraplegia, unspecified; Z68.41 Body mass index [BMI] 40.0-44.9, adult; E87.1 Hypo-osmolality and hyponatremia; E87.4 Mixed disorder of acid-base balance; Z66 Do not resuscitate; Z51.5 Encounter for palliative care; N31.9 Neuromuscular dysfunction of bladder, unspecified; E87.5 Hyperkalemia; E66.01 Morbid (severe) obesity due to excess calories; G47.33 Obstructive sleep apnea (adult) (pediatric); I48.0 Paroxysmal atrial fibrillation; E11.65 Type 2 diabetes mellitus with hyperglycemia; D75.839 Thrombocytosis, unspecified; E88.09 Other disorders of plasma-protein metabolism, not elsewhere classified; E11.69 Type 2 diabetes mellitus with other specified complication; N18.2 Chronic kidney disease, stage 2 (mild); E11.22 Type 2 diabetes mellitus with diabetic chronic kidney disease; I12.9 Hypertensive chronic kidney disease with stage 1 through stage 4 chronic kidney disease, or unspecified chronic kidney disease; D63.1 Anemia in chronic kidney disease; E87.70 Fluid overload, unspecified; G89.29 Other chronic pain; E86.9 Volume depletion, unspecified; Y84.6 Urinary catheterization as the cause of abnormal reaction of the patient, or of later complication, without mention of misadventure at the time of the procedure; E87.6 Hypokalemia; Z88.2 Allergy status to sulfonamides; Z88.8 Allergy status to other drugs, medicaments and biological substances; Z88.1 Allergy status to other antibiotic agents; Z79.891 Long term (current) use of opiate analgesic; Z79.4 Long term (current) use of insulin; Z99.89 Dependence on other enabling machines and devices; S24.103S Unspecified injury at T7-T10 level of thoracic spinal cord, sequela; Z93.3 Colostomy status; Z79.01 Long term (current) use of anticoagulants; Z79.899 Other long term (current) drug therapy; Z79.82 Long term (current) use of aspirin; Z79.02 Long term (current) use of antithrombotics/antiplatelets; Z79.2 Long term (current) use of antibiotics; Z89.612 Acquired absence of left leg above knee; Z98.890 Other specified postprocedural states; Z98.1 Arthrodesis status
CPT/HCPCS: 36415; 36430; 36600; 70450; 71045; 74176; 76770; 80053; 80069; 81001; 82803; 82947; 83605; 83735; 84132; 85014; 85018; 85025; 85610; 86850; 86900; 86901; 86923; 87040; 87077; 87086; 87186; 93005; 93010; 94640; 94664; 94760; 94762; 96361-59; 96365-59; 96368; 99285-25; A9270; C2627; J0612; J1642; J1644; J1815; J2185; J2405; J3010; J7030; J7050; P9016

== ENCOUNTER 2022-07-05 01:24 | Day surgery (SDC) | payer MEDICARE, BC ==
--- NOTE | 2022-06-29 16:23 | NUR ---
NO CALL, NO SHOW
[~2022-07-05 01:24] MED LIST changes: +FUROSEMIDE40 MG PO; +OMEPRAZOLE20 M2 PO; +Oxycodone HCl20 M1 PO; +SOAANZ20 M3 PO; +TELMISARTAN40 MG PO; +VITAMIN A & D OI5 GM TOP; +ZANAFLEX413 PO
[2022-07-05 13:45] VITALS: BP 150/52
[2022-07-05 14:13] LABS: BASOPHILS PERCENT AUTO 1 % (0-2); EOSINOPHILS PERCENT AUTO 5 % (0-6); Hematocrit 24.8 % (37.0-53.0); Hemoglobin 7.2 g/dL (13.5-17.5); IMMATURE GRAN ABSOLUTE AUTO 0.28 K/mm3 (0.00-0.10); IMMATURE GRAN PERCENT AUTO 2 % (0-1); LYMPHOCYTES ABSOLUTE AUTO 1.52 K/mm3 (0.84-5.20); LYMPHOCYTES PERCENT AUTO 13 % (21-46); MONOCYTES ABSOLUTE AUTO 0.71 K/mm3 (0.16-1.47); MONOCYTES PERCENT AUTO 6 % (4-13); Mean Corpuscular HGB 26.8 pg (26.0-34.0); Mean Corpuscular Volume 92 fL (80-100); Mean Platelet Volume 8.8 fL (9.1-12.4); NEUTROPHILS ABSOLUTE AUTO 8.94 K/mm3 (1.96-9.15); NEUTROPHILS PERCENT AUTO 74 % (41-73); Platelet Count 553 K/mm3 (150-400); RDW Standard Deviation 53.8 fL (35.1-46.3); Red Blood Cell Count 2.69 M/mm3 (4.30-5.90); White Blood Cell Count 12.15 K/mm3 (4.00-11.30)
[2022-07-05 14:28] LABS: Alanine Aminotransfer (ALT/SGP 14 U/L (12-78); Albumin, Blood 2.1 g/dL (3.4-5.0); Albumin/Globulin Ratio 0.5 (0.8-1.8); Alk Phos 78 U/L (50-136); Anion Gap 5 mmol/L (6-16); Aspartate Aminotrans (AST/SGOT 10 U/L (12-37); Bilirubin, Total 0.2 mg/dL (0.1-1.0); Blood Urea Nitrogen 27 mg/dL (8-24); Bun/Creatinine Ratio 27.8 (12.0-20.0); CO2, Blood 29 mmol/L (21-32); Calcium, Blood 8.2 mg/dL (8.5-10.1); Chloride, Blood 108 mmol/L (98-108); Cholesterol 139 mg/dL (50-200); Creatinine, Blood 0.97 mg/dL (0.60-1.20); Ferritin, Serum 663 ng/mL (26-388); Globulin, Blood 4.2 g/dL (2.2-4.0); Glomerular Filtration Rate 85 (60-); Glucose, Blood 131 mg/dL (70-99); HDL Cholesterol 35 mg/dL (>39); Iron Serum 27 ug/dL (65-175); LDL/HDL RATIO 1.5; Low Density Lipoprotein Chol 54 mg/dL (0-110); Percent Saturation 13.2 % (20.0-50.0); Potassium, Blood 4.9 mmol/L (3.5-5.5); Sodium, Blood 142 mmol/L (136-145); Total Iron Binding Capacity 204 ug/dL (250-450); Total Protein, Blood 6.3 g/dL (6.4-8.2); Triglycerides 250 mg/dL (30-160); Very Low Density Lipoprot Chol 50 mg/dL (6-32)
== END 2022-07-05 13:58 | disposition home or self-care (01) ==
LOC: ATC 01:24
PROVIDERS: Nurse Practitioner Family
DX: D64.9 Anemia, unspecified (principal); I10 Essential (primary) hypertension; E11.42 Type 2 diabetes mellitus with diabetic polyneuropathy; G82.20 Paraplegia, unspecified; G47.33 Obstructive sleep apnea (adult) (pediatric); K21.9 Gastro-esophageal reflux disease without esophagitis; G89.4 Chronic pain syndrome; Z88.1 Allergy status to other antibiotic agents; Z88.2 Allergy status to sulfonamides; Z79.4 Long term (current) use of insulin; Z79.899 Other long term (current) drug therapy
CPT/HCPCS: 36591; 80053; 80061; 82728; 83036; 83540; 83550; 85025; J1642

== ENCOUNTER 2022-07-24 02:34 | Day surgery (SDC) | payer MEDICARE, BC ==
[2022-07-24 14:44] VITALS: BP 136/56
== END 2022-07-24 15:50 | disposition home or self-care (01) ==
LOC: ATC 02:34
DX: D50.0 Iron deficiency anemia secondary to blood loss (chronic) (principal); N31.9 Neuromuscular dysfunction of bladder, unspecified; G82.20 Paraplegia, unspecified; E11.69 Type 2 diabetes mellitus with other specified complication; M86.351 Chronic multifocal osteomyelitis, right femur; L89.894 Pressure ulcer of other site, stage 4; E66.2 Morbid (severe) obesity with alveolar hypoventilation; I48.0 Paroxysmal atrial fibrillation; I10 Essential (primary) hypertension; Z88.8 Allergy status to other drugs, medicaments and biological substances; Z88.1 Allergy status to other antibiotic agents; Z88.0 Allergy status to penicillin; Z79.4 Long term (current) use of insulin; Z79.899 Other long term (current) drug therapy
CPT/HCPCS: 96365; J1642; J2916

== ENCOUNTER → 2022-07-27 | Outpatient (CLI) | payer MEDICARE, BC ==
[2022-07-27 13:23] LABS: Source, Urine Foley catheter
[2022-07-27 14:57] LABS: Appearance, Urine Turbid (Clear); Bilirubin, Urine Neg (Neg); Blood, Urine 4+ (Neg); Color, Urine Yellow (P-Yellow); Glucose Qualitative, Urine Neg (Neg); Ketones, Urine Neg (Neg); Leukocyte Esterase, Urine 3+ (Neg); Nitrite, Urine Neg (Neg); Protein, Urine 3+ (Neg); Urobilinogen, Urine NORM (Normal); pH, Urine 6.5 (5.0-8.0)
[2022-07-27 15:25] LABS: White Blood Cells, Urine TNTC /hpf (0-5)
[2022-07-27 15:27] LABS: Bacteria Many /hpf; Squamous Epithelial Cells Not Seen /hpf (Few)
[2022-07-30 13:20] LABS: Test Name 60201
== END | disposition home or self-care (01) ==
LOC: LAB 13:21 → LAB SHORT 13:21
PROVIDERS: Internal Medicine Infectious Disease
DX: N39.0 Urinary tract infection, site not specified (principal); B96.1 Klebsiella pneumoniae [K. pneumoniae] as the cause of diseases classified elsewhere
CPT/HCPCS: 81001

== ENCOUNTER → 2022-08-10 | Outpatient (CLI) | payer MEDICARE, BC ==
[2022-08-10 17:37] LABS: Appearance, Urine Clear (Clear); Bilirubin, Urine Neg (Neg); Blood, Urine 4+ (Neg); Color, Urine Yellow (P-Yellow); Glucose Qualitative, Urine Neg (Neg); Ketones, Urine Neg (Neg); Leukocyte Esterase, Urine 2+ (Neg); Nitrite, Urine Neg (Neg); Protein, Urine 3+ (Neg); Urobilinogen, Urine NORM (Normal)
[2022-08-10 17:49] LABS: Bacteria Many /hpf; Mucus Light (0-Heavy); Squamous Epithelial Cells Few /hpf (Few)
[2022-08-10 17:51] LABS: Renal Epithelial Rare /hpf (0-Rare)
== END ==
LOC: LAB SHORT 10:30 → LAB 10:30
PROVIDERS: Nurse Practitioner Family
DX: N39.0 Urinary tract infection, site not specified (principal)
CPT/HCPCS: 81001; 87077; 87086; 87186

== ENCOUNTER 2022-08-29 18:50 | Inpatient (IN) | payer MEDICARE, BC ==
[~2022-08-29] VITALS: Ht 188 cm; Wt 146.1 kg
[2022-08-29] MEDS ORDERED: Klor-Con-Ef 2525 MEQ PO (19:25)
[2022-08-29] MEDS ORDERED: FOSFOMYCIN TROME3 G2 PO (19:27)
[2022-08-29] MEDS ORDERED: ALLEGRA ALLERG180 MG PO (19:27)
[2022-08-29 21:20] LABS: BASOPHILS ABSOLUTE AUTO 0.07 K/mm3 (0.00-0.23); BASOPHILS PERCENT AUTO 1 % (0-2); EOSINOPHILS ABSOLUTE AUTO 0.46 K/mm3 (0.00-0.68); EOSINOPHILS PERCENT AUTO 5 % (0-6); Hematocrit 26.7 % (37.0-53.0); Hemoglobin 7.6 g/dL (13.5-17.5); IMMATURE GRAN ABSOLUTE AUTO 0.21 K/mm3 (0.00-0.10); IMMATURE GRAN PERCENT AUTO 2 % (0-1); LYMPHOCYTES ABSOLUTE AUTO 1.39 K/mm3 (0.84-5.20); LYMPHOCYTES PERCENT AUTO 15 % (21-46); MONOCYTES ABSOLUTE AUTO 0.59 K/mm3 (0.16-1.47); MONOCYTES PERCENT AUTO 6 % (4-13); Mean Corpuscular HGB 24.8 pg (26.0-34.0); Mean Corpuscular HGB Conc 28.5 g/dL (31.5-36.5); Mean Corpuscular Volume 87 fL (80-100); Mean Platelet Volume 8.8 fL (9.1-12.4); NEUTROPHILS ABSOLUTE AUTO 6.46 K/mm3 (1.96-9.15); NEUTROPHILS PERCENT AUTO 70 % (41-73); Platelet Count 466 K/mm3 (150-400); RDW Coefficient Variation 16.6 % (11.7-14.2); RDW Standard Deviation 52.7 fL (35.1-46.3); Red Blood Cell Count 3.07 M/mm3 (4.30-5.90); White Blood Cell Count 9.18 K/mm3 (4.00-11.30)
[2022-08-29 21:35] LABS: International Normalized Ratio 1.01; Prothrombin Time Results 10.6 Sec (9.7-11.5)
[2022-08-29 21:39] LABS: Source, Urine Foley catheter
[2022-08-29 21:41] LABS: Alanine Aminotransfer (ALT/SGP 16 U/L (12-78); Albumin, Blood 2.3 g/dL (3.4-5.0); Albumin/Globulin Ratio 0.5 (0.8-1.8); Alk Phos 81 U/L (50-136); Anion Gap 4 mmol/L (6-16); Aspartate Aminotrans (AST/SGOT 12 U/L (12-37); Bilirubin, Direct <0.1 mg/dL (0.0-0.3); Bilirubin, Indirect Unable to Calculate mg/dL (0.1-0.7); Bilirubin, Total 0.4 mg/dL (0.1-1.0); Blood Urea Nitrogen 42 mg/dL (8-24); Bun/Creatinine Ratio 35.3 (12.0-20.0); CO2, Blood 32 mmol/L (21-32); Calcium, Blood 8.6 mg/dL (8.5-10.1); Chloride, Blood 100 mmol/L (98-108); Creatinine, Blood 1.19 mg/dL (0.60-1.20); Globulin, Blood 4.8 g/dL (2.2-4.0); Glomerular Filtration Rate 66 (60-); Glucose, Blood 144 mg/dL (70-99); Phosphorus, Blood 4.3 mg/dL (2.5-4.9); Potassium, Blood 5.7 mmol/L (3.5-5.5); Sodium, Blood 136 mmol/L (136-145); Total Protein, Blood 7.1 g/dL (6.4-8.2)
[2022-08-29 21:54] LABS: Bilirubin, Urine Neg (Neg); Blood, Urine 3+ (Neg); Glucose Qualitative, Urine Neg (Neg); Ketones, Urine Neg (Neg); Leukocyte Esterase, Urine 3+ (Neg); Nitrite, Urine Neg (Neg); Protein, Urine 3+ (Neg); Urobilinogen, Urine NORM (Normal)
[2022-08-29 22:09] LABS: Color, Urine Yellow (P-Yellow)
[2022-08-29 22:10] LABS: Appearance, Urine Turbid (Clear)
[2022-08-29 22:14] LABS: Bacteria Many /hpf; Squamous Epithelial Cells Not Seen /hpf (Few); White Blood Cells, Urine TNTC /hpf (0-5)
[2022-08-30] MEDS ORDERED: AMLO5 PO (01:13)
[2022-08-30] MEDS ORDERED: ELIQUIS5 M2 PO (01:14)
[2022-08-30] MEDS ORDERED: JUVEN PACKET1 EAC3 PO (01:15)
[2022-08-30] MEDS ORDERED: TRIM100 PO (01:22)
[2022-08-30] MEDS ORDERED: ZANAFLEX413 PO (01:24)
[2022-08-30] MEDS ORDERED: IRBESARTAN300 M3 PO (01:25)
[2022-08-30] MEDS ORDERED: Cefpodoxime Pr100 MG PO (01:26)
[2022-08-30 02:47] VITALS: BP 167/59
[2022-08-30 05:10] LABS: BASOPHILS ABSOLUTE AUTO 0.06 K/mm3 (0.00-0.23); BASOPHILS PERCENT AUTO 1 % (0-2); EOSINOPHILS ABSOLUTE AUTO 0.41 K/mm3 (0.00-0.68); EOSINOPHILS PERCENT AUTO 5 % (0-6); Hematocrit 26.4 % (37.0-53.0); Hemoglobin 7.6 g/dL (13.5-17.5); IMMATURE GRAN ABSOLUTE AUTO 0.19 K/mm3 (0.00-0.10); IMMATURE GRAN PERCENT AUTO 2 % (0-1); LYMPHOCYTES ABSOLUTE AUTO 1.12 K/mm3 (0.84-5.20); LYMPHOCYTES PERCENT AUTO 14 % (21-46); MONOCYTES PERCENT AUTO 6 % (4-13); Mean Corpuscular HGB 25.1 pg (26.0-34.0); Mean Corpuscular HGB Conc 28.8 g/dL (31.5-36.5); Mean Corpuscular Volume 87 fL (80-100); Mean Platelet Volume 8.7 fL (9.1-12.4); NEUTROPHILS ABSOLUTE AUTO 5.84 K/mm3 (1.96-9.15); NEUTROPHILS PERCENT AUTO 72 % (41-73); Platelet Count 460 K/mm3 (150-400); RDW Coefficient Variation 16.7 % (11.7-14.2); RDW Standard Deviation 53.5 fL (35.1-46.3); Red Blood Cell Count 3.03 M/mm3 (4.30-5.90); White Blood Cell Count 8.12 K/mm3 (4.00-11.30)
[2022-08-30 06:32] LABS: Albumin, Blood 2.1 g/dL (3.4-5.0); Albumin/Globulin Ratio 0.5 (0.8-1.8); Bilirubin, Total 0.1 mg/dL (0.1-1.0); Calcium, Blood 8.5 mg/dL (8.5-10.1); Creatinine, Blood 1.13 mg/dL (0.60-1.20); Globulin, Blood 4.3 g/dL (2.2-4.0); Magnesium, Blood 2.9 mg/dL (1.6-2.4); Potassium, Blood 4.8 mmol/L (3.5-5.5); Total Protein, Blood 6.4 g/dL (6.4-8.2)
--- NOTE | 2022-08-30 07:37 | NUR ---
SUMMARY PT IS A&O X4, VSS, ON 3L O2 VIA NC WHICH IS HIS HOME RATE, DENIES SOB, PT IS ON AN AIR MATTRESS DUE TO COMPLEX PRESSURE WOUNDS, WOUNDS WERE CLEANED UPON ADMIT, BASIC WET/DRY DRSG WAS PLACED UNTIL PT'S CAN BRING IN HIS HOME SUPPLIES, WE DO NOT HAVE THEM HERE, PAIN MNGD PER EMAR, IGNITION & FIRE SAFETY EDUCATION PROVIDED, PT IS RESTING COMFORTABLY THIS AM, REPORT GIVEN TO DAY RN, CALL LIGHT IN REACH.
[2022-08-30 07:53] VITALS: BP 129/53
[2022-08-30 15:50] VITALS: BP 161/64
--- NOTE | 2022-08-30 17:30 | NUR ---
PT CBG 99, ONLY 66 GRAM DINNER. PT STATES MIGHT ONLY TAKE 10 UNITS INSULIN. THEN HAS THE 35UNITS AT 9PM OF LONG ACTING. SPOKE TO DR SPENCE. DOSING IS SET FOR [address] CLAROS 10 UNITS PER PT COMFORT. WHEN READY TO GIVE INSULIN, PT THEN DECIDED SHOULD NOT TAKE ANY HUMALOG. DONE
--- NOTE | 2022-08-30 18:34 | NUR ---
PT DENIES ANY FLAMMABLE ITEMS IN ROOM. PT PLEASANT TODAY. HR REG, NO MURMUR NOTED. PER TELE NSR WITH BBB AND OCC PACS. 86. LUNGS DIM UPPER ABSENT BASES. PT STATES HAS NO LUNG CAPACITY BASES. NORMAL FOR HIM. ON 3L O2. L LEG AMPUTEE. COLOSTOMY RT LOW QUADRANT OF ABD. WEN INDWELLING. MILKY YELLOW FLUID DRAINING. WOUNDS ON RT ANKLE AND ON BOTTOM AREA. PIC IN CHART. WOUND CONSULT MADE AND PT SEEN. WOUND DRESSING CHANGED TODAY. NO OTHER CONCERNS NOTED. BED IN LOW POSITION, CALL LITE IN REACH, CALLS APPROP
[2022-08-30 19:16] VITALS: BP 129/52
[2022-08-30 19:17] VITALS: BP 129/52
[2022-08-30 19:19] VITALS: BP 129/52
[2022-08-31 03:47] VITALS: BP 148/53
--- NOTE | 2022-08-31 04:50 | NUR ---
SHIFT SUMMARY NO ACUTE CHANGES NOTED DURING SHIFT. PT ALERT AND ORIENTED, CALLS APPROPRIATELY. PT MEDICATED MULTIPLE TIMES WITH PRN MEDICATIONS FOR PAIN. PT REMAINS ON 3L NC. CHRONIC WEN IN PLACE. WILL CONTINUE TO MONITOR. CALL LIGHT WITHIN REACH.
[2022-08-31 07:48] VITALS: BP 165/59
[2022-08-31 16:39] VITALS: BP 133/51
[2022-08-31 17:53] LABS: Hemoglobin 7.3 g/dL (13.5-17.5)
[2022-08-31 17:54] LABS: Bun/Creatinine Ratio 38.3 (12.0-20.0); Calcium, Blood 8.3 mg/dL (8.5-10.1); Creatinine, Blood 1.2 mg/dL (0.60-1.20); Potassium, Blood 5.1 mmol/L (3.5-5.5)
[2022-08-31 18:47] LABS: Base Excess Venous 9.2 mmol/L; PCO2 Venous 59.3 mmHg (38-42); pH Blood Venous 7.37 (7.34-7.37)
--- NOTE | 2022-08-31 19:01 | NUR ---
SUMMARY: PT ADMITTED FOR UTI, VSS. PT IS MORE DROWSY TONIGHT NOTED BY THIS RN AND PT . PT APPEARED MORE LETHARGIC AT ABOUT 1430 TODAY. PT AWAKES AND RESPONDS TO QUESTIONS AND IS ORIENTED. PT ASKED THIS RN TO MAKE DR. SPENCE AWARE OF THIS CHANGE, DR. SPENCE CALLED...SEE NEW ORDERS. PLAN TO HOLD OFF ON NARCOTICS AND GABAPENTIN IF PT CONTINUES TO BE LETHARGIC. PT [facility]. URINE OUTPUT IS YELLOW AND CLOUDY, CHRONIC WEN DRAINING WELL. PT CONTINUES ON 3L NC , TELE WNL. WOUND AT PT R BUTT REINFORCED WITH MEDIPORE TAPE AND ABD PAD. THIS RN LEFT A MESSAGE WITH WEALTH MANAGEMENT MANAGER BULL. DR. DAVEY CONSULTED TODAY, AND 24 HR URINE COLLECTION STARTED AT 1520 -WILL MAKE NOC RN AWARE. PT AT BEDSIDE AND UPDATED ON PT PLAN OF CARE.
[2022-08-31 19:23] VITALS: BP 146/55
[2022-09-01 04:28] VITALS: BP 158/74
--- NOTE | 2022-09-01 04:51 | NUR ---
SHIFT SUMMARY; NO ACUTE CHANGES OVERNIGHT. THE PT HAS BEEN SLEEPING FOR THE MAJORITY OF THE NIGHT. THE PT IS AXO X4 AND BEDREST AT BASELINE. THE PT HAS BEEN PAINFUL T/O THE NIGHT BUT IT IS MANAGED WELL WITH PRN PAIN MEDICATIONS. THE PT IS ON 3L NC WITH O2 SATS >92%. TELE IS IN PLACE, SINUS IN THE 80'S W/ PAC'S AND BBB. TKO IS RUNNING THROUGH THE PTS MEDIPORT. A 24 HOUR URINE COLLECTION IS IN PROCESS. THE PT HAS A WEN, IT IS PATENT AND DRAINING TO GRAVITY. THE PT DENIES ANY CHEST PAIN/PRESSURE, SOB OR N/V THIS SHIFT. THE PT ALSO HAS A COLOSTOMY FOR WHICH HE IS INDEPENDENT WITH CARE OF. CURRENTLY THE PT IS SLEEPING IN BED WITH THE BED IN THE LOWEST POSITION AND THE CALL LIGHT AT BEDSIDE.
[2022-09-01 05:27] LABS: Hematocrit 27.1 % (37.0-53.0); Hemoglobin 7.7 g/dL (13.5-17.5); Mean Corpuscular HGB 24.4 pg (26.0-34.0); Mean Corpuscular HGB Conc 28.4 g/dL (31.5-36.5); Mean Corpuscular Volume 86 fL (80-100); Mean Platelet Volume 8.7 fL (9.1-12.4); Platelet Count 443 K/mm3 (150-400); RETICULOCYTE ABSOLUTE 0.0646 M/mm3 (0.0200-0.1100); RETICULOCYTE COUNT PERCENT 2.05 % (0.50-2.50); Red Blood Cell Count 3.15 M/mm3 (4.30-5.90); White Blood Cell Count 7.76 K/mm3 (4.00-11.30)
[2022-09-01 05:50] LABS: Bun/Creatinine Ratio 39.2 (12.0-20.0); Calcium, Blood 8.7 mg/dL (8.5-10.1); Creatinine, Blood 1.2 mg/dL (0.60-1.20); Percent Saturation 20.6 % (20.0-50.0); Potassium, Blood 4.7 mmol/L (3.5-5.5)
[2022-09-01 08:18] VITALS: BP 146/58
--- NOTE | 2022-09-01 16:03 | NUR ---
DRSG CHANGED WITH AT BEDSIDE, PATIENT AND REPORTS THE WOUNDS GET DONE ONCE A DAY, HELPFUL WITH CARE, PATIENT REPOSITIONING HIMSELF WELL, CALL LIGHT WITH IN REACH
[2022-09-01 17:19] LABS: Creatinine Urine 61.4 mg/dL (27.00-270.00)
[2022-09-01 20:30] VITALS: BP 161/61
[2022-09-02 04:25] VITALS: BP 138/58
--- NOTE | 2022-09-02 05:45 | NUR ---
SHIFT SUMMARY; NO ACUTE CHANGES T/O THE NIGHT. THE PT IS AXO X4 AND BEDREST DUE TO PARAPLEGIA. THE PT HAS 3L NC, HE WAS WEARING CPAP W/ 3L BLEED IN FOR A SHORT PERIOD DURING THE NIGHT, O2 SATS HAVE BEEN >95%. THE PT HAS REQUESTED PRN LEYDA A FEW TIMES T/O THE NIGHT. TELE IS IN PLACE-SINUS IN THE 80'S. TKO IS RUNNING THROUGH THE PTS MEDIPORT. THE PT WEN IS PATENT AND DRAINING TO GRAVITY. CURRENTLY THE PT IS SLEEPING IN BED WITH THE BED IN THE LOWEST POSITION AND THE CALL LIGHT AT BEDSIDE. THE PT DENIES ANY SOB OR CHEST PAIN/PRESSURE T/O THE NIGHT' FIRE SAFETY MAINTAINED T/O THE NIGHT.
[2022-09-02 06:26] LABS: Hematocrit 24.9 % (37.0-53.0); Hemoglobin 7.3 g/dL (13.5-17.5); Mean Corpuscular HGB 25.1 pg (26.0-34.0); Mean Corpuscular HGB Conc 29.3 g/dL (31.5-36.5); Mean Corpuscular Volume 86 fL (80-100); Mean Platelet Volume 8.5 fL (9.1-12.4); Platelet Count 406 K/mm3 (150-400); RDW Coefficient Variation 16.8 % (11.7-14.2); RDW Standard Deviation 52.7 fL (35.1-46.3); Red Blood Cell Count 2.91 M/mm3 (4.30-5.90)
[2022-09-02 07:02] LABS: Anion Gap 6 mmol/L (6-16); Blood Urea Nitrogen 42 mg/dL (8-24); Bun/Creatinine Ratio 47.7 (12.0-20.0); CO2, Blood 32 mmol/L (21-32); Calcium, Blood 8.5 mg/dL (8.5-10.1); Chloride, Blood 103 mmol/L (98-108); Creatinine, Blood 0.88 mg/dL (0.60-1.20); Glomerular Filtration Rate 93 (60-); Glucose, Blood 115 mg/dL (70-99); Phosphorus, Blood 3.7 mg/dL (2.5-4.9); Potassium, Blood 4.5 mmol/L (3.5-5.5); Sodium, Blood 141 mmol/L (136-145)
[2022-09-02 07:32] LABS: BAND PERCENT MAN 1 % (0-8); BASOPHILS PERCENT MAN 0 % (0-2); EOSINOPHILS ABSOLUTE MAN 0.53 K/mm3 (0.00-0.68); EOSINOPHILS PERCENT MAN 8 % (0-6); LYMPHOCYTES % ATYPICAL MANUAL 1 % (0-0); LYMPHOCYTES PERCENT MAN 17 % (21-46); METAMYELOCYTE ABSOLUTE MAN 0.13 K/mm3 (0.00-0.00); METAMYELOCYTE PERCENT MAN 2 % (0-0); MONOCYTES ABSOLUTE MAN 0.06 K/mm3 (0.16-1.47); MONOCYTES PERCENT MAN 1 % (4-13); NEUTROPHILS ABSOLUTE MAN 4.75 K/mm3 (1.96-9.15); SEG NEUTROPHILS PERCENT MAN 70 % (41-73); TOTAL CELLS COUNTED 100
[2022-09-02 07:47] VITALS: BP 141/57
--- NOTE | 2022-09-02 11:24 | NUR ---
DR JO ROUNDED ON PATEINT THIS AM, NO CHANGES MADE, WOUND DRESSINGS IN PLACE, DRAINAGE ON THE ANKLE WOUND CHANGED IT ONLY PER PATIENT REQUEST, TWO PERSON FOR DRESSING CHANGES, PATIENT HELPS REPOSITION EASILY, MEDICATED WITH LEYDA 20 MG 30 MINUTES BEFORE DRESSING CHANGES, PATIENT TOLERATED WELL
[2022-09-02 16:11] VITALS: BP 144/57
--- NOTE | 2022-09-02 18:39 | NUR ---
PLEASANT TO CARE, ALERT AND ORIENTED X4, CALL LIGHT WITH IN REACH, DRESSING CHANGES DONE AT 1030, PREMEDICATED WITH 20 MG OXY, PATIENT REPORTED TOLERATING IT WELL BUT DOES NEED TO BE PREMEDICATED. VSS, BIPAP, WAITING FOR BC RESULTS AND MONITORING KIDNEY FUNCTION, PATIENT CHANGED OWN COLOSTOMY TODAY, PATIENT REPOSITIONS HIMSELF WELL, NO ACUTE CHANGES, WILL RELAY TO PM RN
[2022-09-02 20:35] VITALS: BP 147/56
[2022-09-03 05:02] VITALS: BP 158/58
[2022-09-03 05:13] LABS: Hematocrit 27.1 % (37.0-53.0); Hemoglobin 7.8 g/dL (13.5-17.5); Mean Corpuscular HGB 24.5 pg (26.0-34.0); Mean Corpuscular HGB Conc 28.8 g/dL (31.5-36.5); Mean Corpuscular Volume 85 fL (80-100); Mean Platelet Volume 8.5 fL (9.1-12.4); Platelet Count 417 K/mm3 (150-400); RDW Coefficient Variation 16.7 % (11.7-14.2); RDW Standard Deviation 52.3 fL (35.1-46.3); Red Blood Cell Count 3.18 M/mm3 (4.30-5.90); White Blood Cell Count 7.52 K/mm3 (4.00-11.30)
[2022-09-03 05:42] LABS: Albumin, Blood 2.1 g/dL (3.4-5.0); Anion Gap 4 mmol/L (6-16); Blood Urea Nitrogen 37 mg/dL (8-24); Bun/Creatinine Ratio 46.8 (12.0-20.0); CO2, Blood 33 mmol/L (21-32); Calcium, Blood 8.7 mg/dL (8.5-10.1); Chloride, Blood 102 mmol/L (98-108); Creatinine, Blood 0.79 mg/dL (0.60-1.20); Glomerular Filtration Rate 96 (60-); Glucose, Blood 106 mg/dL (70-99); Phosphorus, Blood 3.7 mg/dL (2.5-4.9); Potassium, Blood 4.9 mmol/L (3.5-5.5); Sodium, Blood 139 mmol/L (136-145)
[2022-09-03 05:50] LABS: BAND PERCENT MAN 3 % (0-8); BASOPHILS PERCENT MAN 0 % (0-2); EOSINOPHILS ABSOLUTE MAN 0.82 K/mm3 (0.00-0.68); EOSINOPHILS PERCENT MAN 11 % (0-6); LYMPHOCYTES ABSOLUTE MAN 0.67 K/mm3 (0.84-5.20); LYMPHOCYTES PERCENT MAN 9 % (21-46); MONOCYTES ABSOLUTE MAN 0.22 K/mm3 (0.16-1.47); MONOCYTES PERCENT MAN 3 % (4-13); MYELOCYTE ABSOLUTE MAN 0.37 K/mm3 (0.00-0.00); MYELOCYTE PERCENT MAN 5 % (0-0); NEUTROPHILS ABSOLUTE MAN 5.41 K/mm3 (1.96-9.15); SEG NEUTROPHILS PERCENT MAN 69 % (41-73); TOTAL CELLS COUNTED 100
--- NOTE | 2022-09-03 06:05 | NUR ---
SHIFT SUMMARY; NO ACUTE CHANGES OVERNIGHT. THE PT IS AXO X4 AND BEDBOUND R/T PARAPLEGIA. THE PT USED HIS CPAP LAST NIGHT WITH 02 SATS >95%. THE PT WAS MEDICATED A FEW TIMES FOR PAIN T/O THE NIGHT. THE PTS WEN IS PATENT AND DRAINING TO GRAVITY. THE PT DENIES ANY SOB, CHEST PAIN/PRESSURE OR N/V. CURRENTLY THE PT IS SLEEPING IN BED WITH THE BED IN THE LOWEST POSITION AND THE CALL LIGHT AT BEDSIDE. FIRE SAFETY WAS MAINTAINED T/O THE SHIFT.
[2022-09-03 07:22] VITALS: BP 149/59
[2022-09-03 16:43] VITALS: BP 152/59
--- NOTE | 2022-09-03 17:49 | NUR ---
PATIENT IS A/OX4, VERY PLEASANT AND COOPERATIVE WITH CARE. PARAPLEIC AND IN A LIFT ROOM. PATIENT ALSO WITH L AKA. MULTIPLE CHRONIC WOUND TO BUTTOCKS, R LATERAL ANKLE. DRESSINGS CHANGED TODAY WITH WOUND CARE NURSE. WOUND CARE ORDERS IN PLACE. FOELY TO GRAIVTY, ADEQUATE U/O THIS SHIFT. PATIENT HAS A COLOSTOMY AND CARES FOR IT HIMSELF. REPORTS SEVERE R SHOULDER PAIN, MEDICATING PER EMAR. MEDIPORT ACCESSED, RECEIVING MERREM TO TREAT UTI. SR ON TELE, DENIES ANY CP OR PRESSURE. CALLS APPROPRIATELY AND ABLE TO MAKE NEEDS KNOWN. CONTACT PRECAUTIONS FOR ESBL IN URINE.
[2022-09-03 20:31] VITALS: BP 144/59
[2022-09-04 03:40] VITALS: BP 139/61
--- NOTE | 2022-09-04 06:11 | NUR ---
SHIFT SUMMARY ADMITTED FOR UTI. FULL CODE. PARAPLEGIC W/NEUROGENIC BLADDER. CHRONIC WEN IN PLACE. IV ANTIB ARE SCHEDULED. ADA DIET. ACHS CBG'S. LEFT LEG AMPUTATION. WOUNDS ON BOTTOM, DRESSINGS CHANGED ON PREVIOUS SHIFT. TELEMETRY: NSR @ 75 BPM. LIFT PATIENT. RIGHT CHEST MEDIPORT RUNNING NS @ TKO. OSTOMY IN PLACE. FIRE SAFETY AND IGNITION RISKS ASSESSED AND DISCUSSED WITH PATIENT. HE WEARS A CPAP @ HS. AWAITING INSURANCE APPROVAL FOR ANTIB RX @ HOME BEFORE DISCHARGE. PAIN MEDICATION GIVEN THIS SHIFT.
[2022-09-04 06:14] LABS: Hematocrit 26.2 % (37.0-53.0); Hemoglobin 7.7 g/dL (13.5-17.5)
[2022-09-04 07:48] VITALS: BP 142/62
[2022-09-04 15:44] VITALS: BP 143/62
[2022-09-04 16:10] LABS: A/G RATIO 0.6 (0.7-1.7); ALBUMIN 2.2 g/dL (2.9-4.4); ALPHA-1-GLOBULIN 0.4 g/dL (0.0-0.4); ALPHA-2-GLOBULIN 1.1 g/dL (0.4-1.0); BETA GLOBULIN 0.9 g/dL (0.7-1.3); GAMMA GLOBULIN 1.1 g/dL (0.4-1.8); GLOBULIN, TOTAL 3.6 g/dL (2.2-3.9); M-SPIKE Not Observed g/dL (Not Observed); PROTEIN, TOTAL, SERUM 5.8 g/dL (6.0-8.5)
--- NOTE | 2022-09-04 18:10 | NUR ---
NO ACUTE CHANGES THIS SHIFT. PATIENT A/OX4, PLEASANT AND COOPERATIVE WITH CARE. PAIN CONTROLLED WITH SCHEDULED MS CONTIN AND OXYCODONE Q4 HOURS. VSS, ON 3LO2 WHICH IS HIS BASELINE. PATIENT HAS A COLOSTOMY AND CARES FOR IT HIMSELF. CHRONIC WEN IN PLACE DRAINING TO GRAVITY WITH ADEQUATE U/O. WOUND CARE DONE TODAY BY BULL, WOUND CARE NURSE AND REMAIN C/D/I. PATIENT REEDUCATED REGARDING IGNITION SOURCES AND RISK FOR INJURY WHILE O2 IN USE.
[2022-09-04 19:47] VITALS: BP 155/61
[2022-09-05 05:27] VITALS: BP 147/70
--- NOTE | 2022-09-05 05:39 | NUR ---
SHIFT SUMMARY VSS, TELE READS SR 62. PT SLEPT WELL T/O THE NIGHT. TOLLERATING PO INTAKE W/O N/V. MINIMAL STOOL OUTPUT, PT DID NOT NEED TO EMPTY BAG T/O THE NIGHT. LARGE URINE OUTPUT, PT DECLINED CATH CARE THIS AM. DRESSING REMAINS ON PTS RIGHT FOOT AND COCCYS, UNABLE TO VISUALIZE COCCYX PER PTS REQUEST. NO ACUTE EVENTS T/O THE NIGHT. PLAN FOR PT TO PSSIBLY D/C HOME TODAY. THE PATIENT IS CURRENTLY SLEEPING, IN NO DISTRESS, CALL LIGHT IN REACH
[2022-09-05 06:23] LABS: Bun/Creatinine Ratio 45.4 (12.0-20.0); Calcium, Blood 8.3 mg/dL (8.5-10.1); Creatinine, Blood 0.79 mg/dL (0.60-1.20)
[2022-09-05 06:27] LABS: BASOPHILS ABSOLUTE AUTO 0.03 K/mm3 (0.00-0.23); BASOPHILS PERCENT AUTO 1 % (0-2); EOSINOPHILS ABSOLUTE AUTO 0.25 K/mm3 (0.00-0.68); EOSINOPHILS PERCENT AUTO 7 % (0-6); Hematocrit 53.3 % (37.0-53.0); Hemoglobin 15.6 g/dL (13.5-17.5); IMMATURE GRAN ABSOLUTE AUTO 0.16 K/mm3 (0.00-0.10); IMMATURE GRAN PERCENT AUTO 4 % (0-1); LYMPHOCYTES ABSOLUTE AUTO 0.95 K/mm3 (0.84-5.20); LYMPHOCYTES PERCENT AUTO 25 % (21-46); MONOCYTES ABSOLUTE AUTO 0.16 K/mm3 (0.16-1.47); MONOCYTES PERCENT AUTO 4 % (4-13); Mean Corpuscular HGB 24.6 pg (26.0-34.0); Mean Corpuscular HGB Conc 29.3 g/dL (31.5-36.5); Mean Corpuscular Volume 84 fL (80-100); Mean Platelet Volume 8.5 fL (9.1-12.4); NEUTROPHILS ABSOLUTE AUTO 2.32 K/mm3 (1.96-9.15); NEUTROPHILS PERCENT AUTO 60 % (41-73); Platelet Count 170 K/mm3 (150-400); RDW Coefficient Variation 18.6 % (11.7-14.2); RDW Standard Deviation 52.2 fL (35.1-46.3); Red Blood Cell Count 6.35 M/mm3 (4.30-5.90); White Blood Cell Count 3.87 K/mm3 (4.00-11.30)
--- NOTE | 2022-09-05 14:20 | NUR ---
DISCHARGE NOTE: PATIENT AND PATIENTS BMET WERE EDUCATED ON DISCHARGE INSTRUCTIONS. BOTH VERBALIZED UNDERSTANDING OF INSTRUCTIONS AND HAD NO FURTHER QUESTIONS AT THIS TIME. PATIENTS MEDIPORT WAS DEACCESSED WITH HEPARIN (SEE EMAR) AND WNL. PATIENTS RENEWAL HOME MEDICATION PERSCRIPTION WAS FAXED OVER TO HIS PREFERRED PHARMACY. MEENA APPOINTMENT WAS CONFIRMED AND HAS HIS FIRST APPOINTMENT TOMORROW WHICH PATIENT VERBALIZED HE IS AWARE OF IT. PATIENTS CHRONIC WEN IS DRAINING PER GRAVITY WITH YELLOW URINE. OSTOMY HAS BROWN OUTPUT WITH DRESSING INTACT. HE IS TOLERATING PO INTAKE. PATIENT IS DRESSED AND HAS PERSONAL ITEMS IN THE ROOM GATHERED. THIS NURSE AND THE MOTOR VEHICLE OPERATOR ROAD SUPERVISOR USED THE LIFT TO MOVE PATIENT FROM BED TO HIS PERSONAL WHEELCHAIR. PATIENT IS ON HIS BASELINE OXYGEN USE OF 3L NC. PATIENTS BMET HAS HIS PERSONAL TANK OF OXYGEN ON HIS PERSONAL WHEELCHAIR. PATIENT WAS WHEELCHAIRED DOWN WITH BMET AND MOTOR VEHICLE OPERATOR ROAD SUPERVISOR TO HIS VAN TO BE TAKEN HOME. THE PATIENT AND BMET WERE EDUCATED ON IGNITION SOURCES AND RISK OF INJURY WITH OXYGEN USE. BOTH VERBALIZED UNDERSTANDING AND HAD NO FURTHER QUESTIONS.
[2022-09-06] MEDS ORDERED: ERTAPENEM1 G6 IV (16:34)
== END 2022-09-05 14:33 | disposition home or self-care (01) | DRG 699 ==
LOC: ER 18:50 → MEDS 18:51 → ENPENDDIS 09-05 12:10 → MEDS 09-05 14:33
PROVIDERS: Emergency Medicine; Family Medicine; Hospitalist; Internal Medicine; ADMIT Student in an Organized Health Care Education/Training Program
PROC: 5A09357 Assistance with Respiratory Ventilation, Less than 24 Consecutive Hours, Continuous Positive Airway Pressure (ICD-10-PCS; principal; 2022-09-03)
DX: T83.511A Infection and inflammatory reaction due to indwelling urethral catheter, initial encounter (principal); G82.20 Paraplegia, unspecified; J96.11 Chronic respiratory failure with hypoxia; N17.9 Acute kidney failure, unspecified; Z68.41 Body mass index [BMI] 40.0-44.9, adult; N39.0 Urinary tract infection, site not specified; G47.33 Obstructive sleep apnea (adult) (pediatric); G89.29 Other chronic pain; N31.9 Neuromuscular dysfunction of bladder, unspecified; E87.5 Hyperkalemia; D63.1 Anemia in chronic kidney disease; I48.0 Paroxysmal atrial fibrillation; B96.5 Pseudomonas (aeruginosa) (mallei) (pseudomallei) as the cause of diseases classified elsewhere; I12.9 Hypertensive chronic kidney disease with stage 1 through stage 4 chronic kidney disease, or unspecified chronic kidney disease; B96.1 Klebsiella pneumoniae [K. pneumoniae] as the cause of diseases classified elsewhere; E87.6 Hypokalemia; E11.622 Type 2 diabetes mellitus with other skin ulcer; E66.01 Morbid (severe) obesity due to excess calories; D75.839 Thrombocytosis, unspecified; N18.2 Chronic kidney disease, stage 2 (mild); E11.22 Type 2 diabetes mellitus with diabetic chronic kidney disease; L89.159 Pressure ulcer of sacral region, unspecified stage; E11.40 Type 2 diabetes mellitus with diabetic neuropathy, unspecified; G25.3 Myoclonus; E88.09 Other disorders of plasma-protein metabolism, not elsewhere classified; Y84.6 Urinary catheterization as the cause of abnormal reaction of the patient, or of later complication, without mention of misadventure at the time of the procedure; S24.153S Other incomplete lesion at T7-T10 level of thoracic spinal cord, sequela; X58.XXXS Exposure to other specified factors, sequela; Z88.1 Allergy status to other antibiotic agents; Z88.8 Allergy status to other drugs, medicaments and biological substances; Z89.612 Acquired absence of left leg above knee; Z93.3 Colostomy status; Z98.1 Arthrodesis status; Z86.73 Personal history of transient ischemic attack (TIA), and cerebral infarction without residual deficits; Z98.890 Other specified postprocedural states; Z86.19 Personal history of other infectious and parasitic diseases; Z79.2 Long term (current) use of antibiotics; Z79.4 Long term (current) use of insulin; Z79.899 Other long term (current) drug therapy; S24.103S Unspecified injury at T7-T10 level of thoracic spinal cord, sequela
CPT/HCPCS: 36415; 71046; 80048; 80053; 80069; 81001; 81050; 82248; 82570; 82668; 82728; 82803; 82947; 83540; 83550; 83605; 83735; 84100; 84145; 84165; 85014; 85018; 85025; 85027; 85045; 85610; 85730; 87040; 87077; 87086; 87186; 93005; 93010; 94660; 94760; 94762; 96361; 96365; 96366; 96372; 96375; 97110; 97112; 97166; 97535; 99285-25; A9270; G0378; J1335; J1642; J1650; J1815; J2185; J7050; J7120; Q5106

== ENCOUNTER 2022-09-06 00:59 | Day surgery (SDC) | payer MEDICARE, BC ==
[~2022-09-06 00:59] MED LIST changes: +AMLO5 PO; +Cefpodoxime Pr100 MG PO; +FOSFOMYCIN TROME3 G2 PO; +IRBESARTAN300 M3 PO
[2022-09-06 14:39] VITALS: BP 147/60
[2022-09-06] MEDS ORDERED: ERTAPENEM1 G6 IV (16:34)
== END 2022-09-06 15:05 | disposition home or self-care (01) ==
LOC: ATC 00:59
DX: N39.0 Urinary tract infection, site not specified (principal); B96.1 Klebsiella pneumoniae [K. pneumoniae] as the cause of diseases classified elsewhere; Z16.12 Extended spectrum beta lactamase (ESBL) resistance; E11.9 Type 2 diabetes mellitus without complications; G47.33 Obstructive sleep apnea (adult) (pediatric); G82.20 Paraplegia, unspecified; E66.01 Morbid (severe) obesity due to excess calories; Z88.1 Allergy status to other antibiotic agents; Z88.8 Allergy status to other drugs, medicaments and biological substances; Z79.4 Long term (current) use of insulin; Z79.899 Other long term (current) drug therapy
CPT/HCPCS: 96365; J1335; J1642

== ENCOUNTER 2022-09-07 03:44 | Day surgery (SDC) | payer MEDICARE, BC ==
[~2022-09-07 03:44] MED LIST changes: +ERTAPENEM1 G6 IV
[2022-09-07 14:21] VITALS: BP 129/58
== END 2022-09-07 14:21 | disposition home or self-care (01) ==
LOC: ATC 03:44
DX: N39.0 Urinary tract infection, site not specified (principal); B96.20 Unspecified Escherichia coli [E. coli] as the cause of diseases classified elsewhere; Z88.2 Allergy status to sulfonamides; Z88.1 Allergy status to other antibiotic agents; E66.01 Morbid (severe) obesity due to excess calories; G47.33 Obstructive sleep apnea (adult) (pediatric); E11.9 Type 2 diabetes mellitus without complications; D61.9 Aplastic anemia, unspecified; L89.104 Pressure ulcer of unspecified part of back, stage 4; L89.204 Pressure ulcer of unspecified hip, stage 4; Z79.4 Long term (current) use of insulin
CPT/HCPCS: 96365; J1335; J1642

== ENCOUNTER 2022-09-08 00:02 | Day surgery (SDC) | payer MEDICARE, BC ==
[2022-09-08 13:50] VITALS: BP 134/49
== END 2022-09-08 14:11 | disposition home or self-care (01) ==
LOC: ATC 00:02
DX: N39.0 Urinary tract infection, site not specified (principal); B96.89 Other specified bacterial agents as the cause of diseases classified elsewhere
CPT/HCPCS: J1335; J1642

== ENCOUNTER 2022-09-09 02:18 | Day surgery (SDC) | payer MEDICARE, BC ==
[2022-09-09 14:00] VITALS: BP 140/62
== END 2022-09-09 14:22 | disposition home or self-care (01) ==
LOC: ATC 02:18
DX: N39.0 Urinary tract infection, site not specified (principal); B96.20 Unspecified Escherichia coli [E. coli] as the cause of diseases classified elsewhere; Z88.1 Allergy status to other antibiotic agents; Z88.2 Allergy status to sulfonamides; G47.33 Obstructive sleep apnea (adult) (pediatric); E11.9 Type 2 diabetes mellitus without complications; E66.01 Morbid (severe) obesity due to excess calories; L89.104 Pressure ulcer of unspecified part of back, stage 4; L89.204 Pressure ulcer of unspecified hip, stage 4; Z79.4 Long term (current) use of insulin
CPT/HCPCS: 96374; J1335; J1642

== ENCOUNTER 2022-09-16 20:52 | Inpatient (IN) | payer MEDICARE, BC ==
[~2022-09-16] VITALS: Ht 188 cm; Wt 180.5 kg
[2022-09-16 22:34] LABS: Source, Urine Foley catheter
[2022-09-16 22:46] LABS: Bilirubin, Urine Neg (Neg); Blood, Urine 4+ (Neg); Glucose Qualitative, Urine Neg (Neg); Ketones, Urine Neg (Neg); Leukocyte Esterase, Urine 3+ (Neg); Nitrite, Urine Neg (Neg); Protein, Urine 4+ (Neg); Specific Gravity, Urine 1.015 (1.003-1.022); Urobilinogen, Urine NORM (Normal); pH, Urine 6.5 (5.0-8.0)
[2022-09-16 22:49] LABS: Appearance, Urine Turbid (Clear); Color, Urine Pale Yellow (P-Yellow)
[2022-09-16 22:55] LABS: Bacteria Mod /hpf; Red Blood Cells, Urine 0-2 /hpf (0-2); Squamous Epithelial Cells Not Seen /hpf (Few); White Blood Cells, Urine TNTC /hpf (0-5)
[2022-09-16 23:12] LABS: BASOPHILS ABSOLUTE AUTO 0.08 K/mm3 (0.00-0.23); BASOPHILS PERCENT AUTO 1 % (0-2); EOSINOPHILS ABSOLUTE AUTO 0.13 K/mm3 (0.00-0.68); EOSINOPHILS PERCENT AUTO 1 % (0-6); Hematocrit 27.7 % (37.0-53.0); Hemoglobin 8.2 g/dL (13.5-17.5); IMMATURE GRAN ABSOLUTE AUTO 0.08 K/mm3 (0.00-0.10); IMMATURE GRAN PERCENT AUTO 1 % (0-1); LYMPHOCYTES ABSOLUTE AUTO 1.19 K/mm3 (0.84-5.20); LYMPHOCYTES PERCENT AUTO 9 % (21-46); MONOCYTES ABSOLUTE AUTO 0.96 K/mm3 (0.16-1.47); MONOCYTES PERCENT AUTO 8 % (4-13); Mean Corpuscular HGB 24.9 pg (26.0-34.0); Mean Corpuscular HGB Conc 29.6 g/dL (31.5-36.5); Mean Corpuscular Volume 84 fL (80-100); Mean Platelet Volume 9.1 fL (9.1-12.4); NEUTROPHILS ABSOLUTE AUTO 10.44 K/mm3 (1.96-9.15); NEUTROPHILS PERCENT AUTO 81 % (41-73); Platelet Count 432 K/mm3 (150-400); RDW Coefficient Variation 17.5 % (11.7-14.2); RDW Standard Deviation 54.9 fL (35.1-46.3); Red Blood Cell Count 3.29 M/mm3 (4.30-5.90); White Blood Cell Count 12.88 K/mm3 (4.00-11.30)
[2022-09-16 23:30] LABS: International Normalized Ratio 1.06; Magnesium, Blood 2.7 mg/dL (1.6-2.4); Prothrombin Time Results 11.1 Sec (9.7-11.5)
[2022-09-16 23:43] LABS: Alanine Aminotransfer (ALT/SGP 13 U/L (12-78); Albumin, Blood 2.2 g/dL (3.4-5.0); Albumin/Globulin Ratio 0.5 (0.8-1.8); Alk Phos 69 U/L (50-136); Anion Gap 4 mmol/L (6-16); Aspartate Aminotrans (AST/SGOT 11 U/L (12-37); Bilirubin, Direct <0.1 mg/dL (0.0-0.3); Bilirubin, Indirect Unable to Calculate mg/dL (0.1-0.7); Bilirubin, Total 0.3 mg/dL (0.1-1.0); Blood Urea Nitrogen 36 mg/dL (8-24); Bun/Creatinine Ratio 32.1 (12.0-20.0); CO2, Blood 32 mmol/L (21-32); Calcium, Blood 8.2 mg/dL (8.5-10.1); Chloride, Blood 103 mmol/L (98-108); Creatinine, Blood 1.12 mg/dL (0.60-1.20); Globulin, Blood 4.1 g/dL (2.2-4.0); Glomerular Filtration Rate 71 (60-); Glucose, Blood 156 mg/dL (70-99); Phosphorus, Blood 4.2 mg/dL (2.5-4.9); Potassium, Blood 5.8 mmol/L (3.5-5.5); Sodium, Blood 139 mmol/L (136-145); Total Protein, Blood 6.3 g/dL (6.4-8.2)
[2022-09-17 02:58] VITALS: BP 165/55
[2022-09-17 05:10] LABS: BASOPHILS ABSOLUTE AUTO 0.08 K/mm3 (0.00-0.23); BASOPHILS PERCENT AUTO 1 % (0-2); EOSINOPHILS ABSOLUTE AUTO 0.15 K/mm3 (0.00-0.68); EOSINOPHILS PERCENT AUTO 1 % (0-6); Hematocrit 25.3 % (37.0-53.0); Hemoglobin 7.4 g/dL (13.5-17.5); IMMATURE GRAN ABSOLUTE AUTO 0.06 K/mm3 (0.00-0.10); IMMATURE GRAN PERCENT AUTO 1 % (0-1); LYMPHOCYTES ABSOLUTE AUTO 1.38 K/mm3 (0.84-5.20); LYMPHOCYTES PERCENT AUTO 12 % (21-46); MONOCYTES ABSOLUTE AUTO 1.03 K/mm3 (0.16-1.47); MONOCYTES PERCENT AUTO 9 % (4-13); Mean Corpuscular HGB 24.8 pg (26.0-34.0); Mean Corpuscular HGB Conc 29.2 g/dL (31.5-36.5); Mean Corpuscular Volume 85 fL (80-100); Mean Platelet Volume 9.1 fL (9.1-12.4); NEUTROPHILS ABSOLUTE AUTO 9.32 K/mm3 (1.96-9.15); NEUTROPHILS PERCENT AUTO 78 % (41-73); Platelet Count 398 K/mm3 (150-400); RDW Coefficient Variation 17.5 % (11.7-14.2); RDW Standard Deviation 54.7 fL (35.1-46.3); Red Blood Cell Count 2.98 M/mm3 (4.30-5.90); White Blood Cell Count 12.02 K/mm3 (4.00-11.30)
[2022-09-17 05:59] LABS: Magnesium, Blood 2.7 mg/dL (1.6-2.4)
[2022-09-17 06:00] LABS: Albumin/Globulin Ratio 0.5 (0.8-1.8); Bilirubin, Total 0.3 mg/dL (0.1-1.0); Bun/Creatinine Ratio 31.1 (12.0-20.0); Creatinine, Blood 1.22 mg/dL (0.60-1.20); Globulin, Blood 3.9 g/dL (2.2-4.0); Potassium, Blood 5.4 mmol/L (3.5-5.5); Total Protein, Blood 5.9 g/dL (6.4-8.2)
--- NOTE | 2022-09-17 06:25 | NUR ---
ADMISSION NOTE/SHIFT SUMMARY PT ARRIVED ON UNIT AT 0150 AND PLACED ON SPECIALTY AIR BED PER ORDER. ORIENTED TO ROOM AND CALL VELASQUEZ. PT AGREED TO ALLOW PHOTOS OF HIS WOUNDS, HOWEVER WOULD NOT ALLOW ANY DRESSINGS TO BE REMOVED. L AKA, WOUNDS ALL OVER SACRAL AND BUTTOCKS AREA, R LEG, AND R FOOT. UNABLE TO CLEARLY VISUALIZE WOUNDS D/T PT REFUSING DRESSING REMOVAL. UNABLE TO ASSESS FULL SKIN INTEGRITY AND SKIN FOLDS DUE TO WEIGHT, REDNESS AND MOISTURE VISUALIZED IN WHAT CAN BE SEEN OF PT'S GROIN, AND ABDOMINAL FOLD. MOISTURE PRESENT ON BACK. UNABLE TO VISUALIZE WEN INSERTION SITE DUE TO OBESITY, IMMOBILITY, AND WOUND DRESSINGS. COLOSTOMY INTACT, MEDIPORT RUNNING AT KVO. PLACED ON CONTACT PRECAUTIONS FOR HISTORY OF ESBL. FIRE SAFETY EDUCATION PROVIDED, Q1H CHECKS FOR IGNITION SOURCES PERFOMED.
[2022-09-17 07:32] VITALS: BP 172/60
[2022-09-17 15:54] VITALS: BP 142/56
--- NOTE | 2022-09-17 16:42 | NUR ---
SHIFT SUMMARY PATIENT IS ALERT AND ORIENTED. PATIENT WAS AN ADMIT OVER NIGHT. PATIENT HAS HAD NO ACUTE EVENTS THIS SHIFT. PATIENT HAS COMPLAINED OF PAIN, GOT ADDITIONAL PAIN MEDS IN ADDITION TO SCHEDULED DOSES, MEDICATED PER EMAR. PATIENT HAS NOT COMPLAINED OF SOB, NAUSEA OR VOMITTING THIS SHIFT. PATIENT HAS SCATTERED WOUNDS AND REQUESTS A WOUND CARE NURSE TO EVALUATE, PUT IN ORDERS FOR WOUND CARE EVAL. PATIENT HAS MEDIPORT ACCESSED AND IS RUNNING TKO. BED IN LOCKED AND LOWEST POSITION. CALL LIGHT IN PLACE. WILL MONITOR UNTIL SHIFT SUMMARY
[2022-09-17 19:40] VITALS: BP 143/76
[2022-09-18 02:25] VITALS: BP 170/55
--- NOTE | 2022-09-18 04:32 | NUR ---
SHIFT SUMMARY. SHIFT HAS BEEN MOSTLY UNREMARKABLE. PT WORE CPAP THROUGH MOST OF LATE EVENING AND COST RECORDER BUT HE IS BACK ON 3 L O2 VIA NC NOW. AOX4, PLEASANT, COOPERATIVE WITH CARE. PAIN APPEARS WELL MANAGED ON CURRENT MEDICATION REGIMEN. PT HAS REQUESTED PRN PAIN MEDICATION ONCE THIS SHIFT. WEN INTACT AND DRAINING WELL, URINE CLOUDY. CALLS APPROPRIATELY. BED LOCKED IN LOWEST POSITION. CALL LIGHT LEFT WITHIN REACH.
[2022-09-18 05:01] LABS: BASOPHILS ABSOLUTE AUTO 0.08 K/mm3 (0.00-0.23); BASOPHILS PERCENT AUTO 1 % (0-2); EOSINOPHILS ABSOLUTE AUTO 0.59 K/mm3 (0.00-0.68); EOSINOPHILS PERCENT AUTO 5 % (0-6); Hematocrit 24.5 % (37.0-53.0); Hemoglobin 7.1 g/dL (13.5-17.5); IMMATURE GRAN ABSOLUTE AUTO 0.06 K/mm3 (0.00-0.10); IMMATURE GRAN PERCENT AUTO 1 % (0-1); LYMPHOCYTES ABSOLUTE AUTO 0.88 K/mm3 (0.84-5.20); LYMPHOCYTES PERCENT AUTO 8 % (21-46); MONOCYTES ABSOLUTE AUTO 0.72 K/mm3 (0.16-1.47); MONOCYTES PERCENT AUTO 7 % (4-13); Mean Corpuscular HGB 24.7 pg (26.0-34.0); Mean Corpuscular Volume 85 fL (80-100); Mean Platelet Volume 9.4 fL (9.1-12.4); NEUTROPHILS PERCENT AUTO 79 % (41-73); Platelet Count 382 K/mm3 (150-400); RDW Coefficient Variation 17.7 % (11.7-14.2); Red Blood Cell Count 2.88 M/mm3 (4.30-5.90); White Blood Cell Count 10.93 K/mm3 (4.00-11.30)
[2022-09-18 05:32] LABS: Albumin, Blood 1.9 g/dL (3.4-5.0); Anion Gap 5 mmol/L (6-16); Blood Urea Nitrogen 46 mg/dL (8-24); Bun/Creatinine Ratio 31.7 (12.0-20.0); CO2, Blood 30 mmol/L (21-32); Chloride, Blood 104 mmol/L (98-108); Creatinine, Blood 1.45 mg/dL (0.60-1.20); Glomerular Filtration Rate 52 (60-); Glucose, Blood 121 mg/dL (70-99); Phosphorus, Blood 4.2 mg/dL (2.5-4.9); Potassium, Blood 5.2 mmol/L (3.5-5.5); Sodium, Blood 139 mmol/L (136-145)
[2022-09-18 07:43] VITALS: BP 165/61
[2022-09-18 17:13] VITALS: BP 130/59
--- NOTE | 2022-09-18 18:50 | NUR ---
SHIFT SUMMARY PATIENT CONTINUES TO HAVE R SHOULDER PAIN. PATIENT STATES HE IS NOT GETTING HIS HOME DOSE OF PRN PAIN MEDS MAKING IT CHALLENGING TO CONTROL HIS PAIN. PATIENT ALERT AND INTERACTIVE. PLAN TO TRANSITION TO AIR BED WHEN AVAILABLE BECAUSE OF WOUNDS AND DIFFICULTY WITH POSITIONING ON CURRENT BED. PATIENT TRANSFERRED TO A LIFT ROOM SINCE PATIENT IS A PARAPLEGIC. WOUND CONSULT COMPLETED AND WOUND CARE PROVIDED. PATIENT MEDICATED THROUGHOUT THE DAY WITH PAIN MEDS. CATHETER CONTINUES TO DRAIN THICK MUCUS LOOKING URINE. NOTIFIED OF TRANSFER TO NEW ROOM AND NEW BED THAT IS ORDERED.
[2022-09-18 20:01] VITALS: BP 150/52
[2022-09-19] VITALS (9 sets, daily range): BP systolic 139–194; BP diastolic 44–61
--- NOTE | 2022-09-19 04:18 | NUR ---
SHIFT SUMMARY ADMITTED FOR RECURRENT UTI/SEPSIS. FULL CODE. CONTACT ISOLATION: ESBL IN URINE. IV ANTIB RX ARE SCHEDULED. WE HAVE DRAWN BLOOD CULTURES. CHRONIC WEN IN PLACE AND PATENT. HE IS REFUSING ELIQUIS, STATING HE DOES NOT TAKE IT. ACHS CBG'S. MEDIPORT IN LEFT CHEST WALL IS ACCESSED. LR IS INFUSING ORDERED. USES BIPAP @ HS. 3 LPM O2 VIA NC DURING DAY. ULCER ON SACRUM AND ON RT. HIP, COVERED IN DRESSINGS. LEFT AKA. RLE ATROPHY NOTED. HE IS ON BEDREST, AIR BED IS NOW IN USE. LIFT PATIENT. ONE BLOOD CULTURE RESULT REPORTED GRAM+ COCCI IN CLUSTERS, HOSPITALIST INFORMED. WE ARE UNSURE IF THIS CULTURE RESULT IS CORRECT, AWAITING OTHER CULTURES. FIRE SAFETY AND IGNITION RISK HAS BEEN ASSESSED AND DISCUSSED WITH THIS PATIENT.
[2022-09-19 05:30] LABS: Hematocrit 21.7 % (37.0-53.0); Hemoglobin 6.4 g/dL (13.5-17.5); Mean Corpuscular HGB 24.7 pg (26.0-34.0); Mean Corpuscular HGB Conc 29.5 g/dL (31.5-36.5); Mean Corpuscular Volume 84 fL (80-100); Mean Platelet Volume 9.1 fL (9.1-12.4); Platelet Count 345 K/mm3 (150-400); RDW Coefficient Variation 17.4 % (11.7-14.2); RDW Standard Deviation 54.3 fL (35.1-46.3); Red Blood Cell Count 2.59 M/mm3 (4.30-5.90); White Blood Cell Count 6.91 K/mm3 (4.00-11.30)
[2022-09-19 06:08] LABS: Albumin, Blood 1.8 g/dL (3.4-5.0); Anion Gap 4 mmol/L (6-16); Blood Urea Nitrogen 49 mg/dL (8-24); Bun/Creatinine Ratio 39.5 (12.0-20.0); CO2, Blood 31 mmol/L (21-32); Calcium, Blood 7.9 mg/dL (8.5-10.1); Chloride, Blood 106 mmol/L (98-108); Creatinine, Blood 1.24 mg/dL (0.60-1.20); Glomerular Filtration Rate 63 (60-); Glucose, Blood 95 mg/dL (70-99); Phosphorus, Blood 4.4 mg/dL (2.5-4.9); Potassium, Blood 5.1 mmol/L (3.5-5.5); Sodium, Blood 141 mmol/L (136-145)
--- NOTE | 2022-09-19 06:37 | NUR ---
CALLED HOSPITALIST INFORMED HIM THAT [facility] IS 6.4. RECEIVED ORDERS TO TRANSFUSE 1 U PRBC'S. NEW ORDERS ENTERED INTO [employer]. BLOOD CONSENT IS NOW SIGNED.
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
[2022-09-20 03:38] VITALS: BP 179/49
--- NOTE | 2022-09-20 04:23 | NUR ---
SHIFT SUMMARY ADMITTED FOR RECURRENT UTI'S/SEPSIS. FULL CODE. CONTACT PRECAUTIONS FOR ESBL IN URINE. IV ANTIB RX ARE SCHEDULED. BLOOD CX'S ARE PENDING. CHRONIC WEN IN PLACE AND PATENT, NEUROGENIC BLADDER. ACCESSED MEDIPORT IN LEFT CHEST WALL, NS RUNNING KVO PER PROTOCOL. BEDREST/LIFT. HE IS PARAPLEGIC FOR 40 YEARS. LEFT AKA, RIGHT LEG ATROPHY. CHRONIC ULCERS ON RIGHT HIP, SACRUM, RIGHT ANKLE - DRESSINGS IN PLACE ARE CLEAN AND DRY. AIRBED AND TRAPEZE IN USE. BIPAP @ HS, 3 LPM O2 DURING DAY. RENAL CONSULT IS DR. BASS. ADA DIET. A&O X4. 1 U OF PRBC'S GIVEN ON PREVIOUS SHIFT.
[2022-09-20 07:03] LABS: Hematocrit 26.2 % (37.0-53.0); Hemoglobin 7.8 g/dL (13.5-17.5); Mean Corpuscular HGB 25.2 pg (26.0-34.0); Mean Corpuscular HGB Conc 29.8 g/dL (31.5-36.5); Mean Corpuscular Volume 85 fL (80-100); Mean Platelet Volume 9.4 fL (9.1-12.4); Platelet Count 386 K/mm3 (150-400); RDW Coefficient Variation 17.1 % (11.7-14.2); RDW Standard Deviation 52.8 fL (35.1-46.3); Red Blood Cell Count 3.09 M/mm3 (4.30-5.90); White Blood Cell Count 7.27 K/mm3 (4.00-11.30)
[2022-09-20 07:13] LABS: Bun/Creatinine Ratio 41.4 (12.0-20.0); Calcium, Blood 8.3 mg/dL (8.5-10.1); Creatinine, Blood 0.92 mg/dL (0.60-1.20); Potassium, Blood 5.3 mmol/L (3.5-5.5)
[2022-09-20 07:16] VITALS: BP 143/49
[2022-09-20 16:23] VITALS: BP 154/57
--- NOTE | 2022-09-20 20:01 | NUR ---
SHIFT SUMMARY PATIENT MORE LETHARGIC TODAY. CONTINUES TO REQUEST PAIN MEDS WHEN AWAKE. PATIENT NOTED TO HAVE MUSCLE SPASMS AT TIMES. PATIENT ALSO REPORTED FEELING TIGHT IN ABD AND SHORT OF BREATH WITH ANY POSITION CHANGES. IV LASIX GIVEN WITH GOOD RESPONSE. CATHETER LEAKING LARGE AMOUNTS OF URINE BECAUSE OF POSSIBLE KINKING. PATIENT NOTED TO CONTINUE TO HAVE PERIODS OF CLEAR PALE URINE TO ELINA THEN EPISODES OF PUSS AND SEDIMENT IN URINE. REPORTS THAT THIS IS COMMON FOR URINE OUTPUT. FAX SENT TO DR RESENDEZ'S OFFICE FOR CONSULT FOR NEPHROSTOMY TUBE. WOUND CARE DONE TO BUTTOCKS/COCCYX WOUNDS. WOUND CARE NURSE NOT AVAILABLE TODAY FOR WOUND CARE. BARRIER CREAM APPLIED TO PERIWOUND AREA. ATTEMPTED TO HAVE PATEINT WEAR THE CPAP IN THE ROOM. PATIENT UNABLE TO TOLERATE MASK FOR ANY LENGTH OF TIME.
[2022-09-20 20:26] VITALS: BP 158/46
[2022-09-21 03:55] VITALS: BP 161/48
--- NOTE | 2022-09-21 05:55 | NUR ---
NO SIGNIIFICANT CHANGES NOTED TO PATIENT CONDITION. REFUSED STOOL SOFTENER LAST NIGHT, PT SELF-MANAGING OSTOMY. URINE OUTPUT IS YELLOW WITH PUS AND FOUL ODOR. PRN PAIN MEDS REQUESTED AND GIVEN FOR R SHOULDER AND RUE PAIN. PT AOX4, PLEASANT, VSS.
[2022-09-21 07:55] VITALS: BP 151/64
[2022-09-21 08:13] LABS: Albumin, Blood 1.8 g/dL (3.4-5.0); Anion Gap 3 mmol/L (6-16); Blood Urea Nitrogen 37 mg/dL (8-24); CO2, Blood 34 mmol/L (21-32); Calcium, Blood 8.2 mg/dL (8.5-10.1); Chloride, Blood 108 mmol/L (98-108); Creatinine, Blood 0.79 mg/dL (0.60-1.20); Glomerular Filtration Rate 96 (60-); Glucose, Blood 113 mg/dL (70-99); Iron Serum 25 ug/dL (65-175); Percent Saturation 17.7 % (20.0-50.0); Phosphorus, Blood 3.5 mg/dL (2.5-4.9); Potassium, Blood 4.9 mmol/L (3.5-5.5); Sodium, Blood 145 mmol/L (136-145); Total Iron Binding Capacity 141 ug/dL (250-450)
[2022-09-21 09:32] LABS: Hematocrit 26.7 % (37.0-53.0); Hemoglobin 7.8 g/dL (13.5-17.5)
[2022-09-21 16:18] VITALS: BP 152/57
--- NOTE | 2022-09-21 18:30 | NUR ---
SHIFT SUMMARY PATIENT CONTINUED TO HAVE EPISODES OF SOB. PATEINT MEDICATED WITH PO AND IV LASIX WITH GOOD RESPONSE. PATIENT STATES BREATHING MUCH BETTER THIS AFTERNOON. PATIENT CONTINUES TO HAVE R SHOULDER PAIN AND REQUESTING PRN PAIN MEDS REGULARLY. PATIENT MORE AWAKE AND INTERACTIVE WITH CARE. WOUND CARE PROVIDED TO BUTTOCKS AND ANKLE. MEDIPORT DIFFICULT TO FLUSH AFTER IRON INFUSION. NEEDLE CHANGED AND REDRESSED. LINE FLUSHED EASILY. PATIENT HOPEFUL TO GO HOME TOMORROW BUT DOES NOT WANT TO GO HOME TOO SOON.
[2022-09-21 20:09] VITALS: BP 150/51
[2022-09-22 03:28] VITALS: BP 177/60
[2022-09-22 06:42] LABS: Anion Gap 3 mmol/L (6-16); Blood Urea Nitrogen 38 mg/dL (8-24); Bun/Creatinine Ratio 46.1 (12.0-20.0); CO2, Blood 34 mmol/L (21-32); Calcium, Blood 8.5 mg/dL (8.5-10.1); Chloride, Blood 106 mmol/L (98-108); Creatinine, Blood 0.83 mg/dL (0.60-1.20); Glomerular Filtration Rate 95 (60-); Glucose, Blood 90 mg/dL (70-99); Phosphorus, Blood 4.3 mg/dL (2.5-4.9); Potassium, Blood 4.5 mmol/L (3.5-5.5); Sodium, Blood 143 mmol/L (136-145)
--- NOTE | 2022-09-22 07:34 | NUR ---
URINE OUTPUT APPEARS MORE CLEAR THAN PREVIOUS SHIFT. PT AOX4, CALLS APPROPRIATELY, MANAGES COLOSTOMY BAG INDEPENDENTLY. HYPERTENSIVE, IMPROVED WITH PAIN MEDS. UNEVENTFUL NIGHT. FIRE SAFETY REVIEWED.
[2022-09-22 07:36] VITALS: BP 153/53
[2022-09-22] MEDS ORDERED: CIPR500 PO (11:00)
[2022-09-22] MEDS ORDERED: HUMALOG KW100 UNIT/1 SC (11:08)
[2022-09-22] MEDS ORDERED: LOSA50 PO (11:10)
[2022-09-22] MEDS ORDERED: LACT PO (11:10)
[2022-09-22] MEDS ORDERED: HIPREX1 G1 PO (11:15)
[2022-09-22] MEDS ORDERED: B-COMPLEX WITH1 EACH PO (11:16)
--- NOTE | 2022-09-22 16:00 | NUR ---
Discharge instructions reviewed with patient. Patient verbalizes understanding. Copy given to patient to take home. Discharged via wheelchair to private car for ride home. Patient States Post-Procedure ride home has been arranged.
== END 2022-09-22 15:45 | disposition home health service (06) | DRG 698 ==
LOC: ER 20:52 → MEDS 20:53 → ENPENDDIS 09-22 11:09 → MEDS 09-22 15:45
PROVIDERS: Emergency Medicine; Family Medicine; Hospitalist; Internal Medicine; ADMIT Student in an Organized Health Care Education/Training Program
PROC: 5A09357 Assistance with Respiratory Ventilation, Less than 24 Consecutive Hours, Continuous Positive Airway Pressure (ICD-10-PCS; 2022-09-18)
PROC: 3E03329 Introduction of Other Anti-infective into Peripheral Vein, Percutaneous Approach (ICD-10-PCS; 2022-09-18)
PROC: 30233N1 Transfusion of Nonautologous Red Blood Cells into Peripheral Vein, Percutaneous Approach (ICD-10-PCS; principal; 2022-09-19)
DX: T83.511A Infection and inflammatory reaction due to indwelling urethral catheter, initial encounter (principal); A41.52 Sepsis due to Pseudomonas; L89.614 Pressure ulcer of right heel, stage 4; L89.154 Pressure ulcer of sacral region, stage 4; A41.81 Sepsis due to Enterococcus; N13.6 Pyonephrosis; N17.9 Acute kidney failure, unspecified; J96.11 Chronic respiratory failure with hypoxia; G82.20 Paraplegia, unspecified; Z68.41 Body mass index [BMI] 40.0-44.9, adult; M86.651 Other chronic osteomyelitis, right thigh; Z51.5 Encounter for palliative care; I48.0 Paroxysmal atrial fibrillation; D50.0 Iron deficiency anemia secondary to blood loss (chronic); E87.5 Hyperkalemia; E87.70 Fluid overload, unspecified; E66.01 Morbid (severe) obesity due to excess calories; G47.33 Obstructive sleep apnea (adult) (pediatric); E11.69 Type 2 diabetes mellitus with other specified complication; G89.29 Other chronic pain; R74.8 Abnormal levels of other serum enzymes; N31.9 Neuromuscular dysfunction of bladder, unspecified; N18.2 Chronic kidney disease, stage 2 (mild); E11.22 Type 2 diabetes mellitus with diabetic chronic kidney disease; I12.9 Hypertensive chronic kidney disease with stage 1 through stage 4 chronic kidney disease, or unspecified chronic kidney disease; Y84.6 Urinary catheterization as the cause of abnormal reaction of the patient, or of later complication, without mention of misadventure at the time of the procedure; Z93.3 Colostomy status; S24.103S Unspecified injury at T7-T10 level of thoracic spinal cord, sequela; Z89.612 Acquired absence of left leg above knee; Z88.8 Allergy status to other drugs, medicaments and biological substances; Z88.2 Allergy status to sulfonamides; Z99.89 Dependence on other enabling machines and devices; Z88.1 Allergy status to other antibiotic agents; Z79.899 Other long term (current) drug therapy; Z79.4 Long term (current) use of insulin; Z79.891 Long term (current) use of opiate analgesic; Z79.01 Long term (current) use of anticoagulants; Z79.02 Long term (current) use of antithrombotics/antiplatelets; Z98.1 Arthrodesis status; Z98.890 Other specified postprocedural states
CPT/HCPCS: 36430; 71045; 76770; 80048; 80053; 80069; 81001; 82248; 82947; 83540; 83550; 83605; 83735; 84100; 85014; 85018; 85025; 85027; 85610; 85730; 86850; 86900; 86901; 86923; 87040; 87077; 87086; 87186; 93005; 93010; 94660; 94762; 96365; 96366; 96372; 99285-25; A9270; G0378; J0744; J1642; J1650; J1815; J1940; J2185; J2916; J7030; J7050; J7120; P9016

== ENCOUNTER → 2022-10-24 | Outpatient (CLI) | payer MEDICARE, BC ==
[~2022-10-24] MED LIST changes: +B-COMPLEX WITH1 EACH PO; +CIPR500 PO; +HIPREX1 G1 PO; +HUMALOG KW100 UNIT/1 SC; +LACT PO; +NOVOLOG100 UNIT/2 INJ; +Nitrofurantoin100 M1
== END ==
LOC: LAB SHORT 17:21 → LAB 17:21
DX: L89.894 Pressure ulcer of other site, stage 4 (principal)
CPT/HCPCS: 87070; 87075; 87077; 87186; 87205

== ENCOUNTER 2022-10-29 22:35 | Inpatient (IN) | payer MEDICARE, BC ==
[~2022-10-29] VITALS: Ht 167.6 cm; Wt 147.2 kg
[~2022-10-29 22:35] MED LIST changes: -NOVOLOG100 UNIT/2 INJ; -Nitrofurantoin100 M1
[2022-10-29 23:46] LABS: BASOPHILS ABSOLUTE AUTO 0.08 K/mm3 (0.00-0.23); BASOPHILS PERCENT AUTO 0 % (0-2); EOSINOPHILS ABSOLUTE AUTO 0.09 K/mm3 (0.00-0.68); EOSINOPHILS PERCENT AUTO 0 % (0-6); Hemoglobin 7.6 g/dL (13.5-17.5); IMMATURE GRAN PERCENT AUTO 1 % (0-1); LYMPHOCYTES ABSOLUTE AUTO 0.48 K/mm3 (0.84-5.20); LYMPHOCYTES PERCENT AUTO 2 % (21-46); MONOCYTES ABSOLUTE AUTO 1.09 K/mm3 (0.16-1.47); MONOCYTES PERCENT AUTO 5 % (4-13); Mean Corpuscular HGB 24.6 pg (26.0-34.0); Mean Corpuscular HGB Conc 29.2 g/dL (31.5-36.5); Mean Corpuscular Volume 84 fL (80-100); Mean Platelet Volume 9.1 fL (9.1-12.4); NEUTROPHILS ABSOLUTE AUTO 18.23 K/mm3 (1.96-9.15); NEUTROPHILS PERCENT AUTO 90 % (41-73); Platelet Count 513 K/mm3 (150-400); RDW Coefficient Variation 18.4 % (11.7-14.2); RDW Standard Deviation 56.7 fL (35.1-46.3); Red Blood Cell Count 3.09 M/mm3 (4.30-5.90); White Blood Cell Count 20.17 K/mm3 (4.00-11.30)
[2022-10-30] VITALS (10 sets, daily range): BP systolic 118–185; BP diastolic 41–85
[2022-10-30 00:15] LABS: Albumin, Blood 2.1 g/dL (3.4-5.0); Albumin/Globulin Ratio 0.4 (0.8-1.8); Bilirubin, Total 0.3 mg/dL (0.1-1.0); Bun/Creatinine Ratio 32.9 (12.0-20.0); Calcium, Blood 8.3 mg/dL (8.5-10.1); Creatinine, Blood 1.43 mg/dL (0.60-1.20); Globulin, Blood 4.7 g/dL (2.2-4.0); Potassium, Blood 5.6 mmol/L (3.5-5.5); Total Protein, Blood 6.8 g/dL (6.4-8.2)
[2022-10-30 00:55] LABS: Influenza A, PCR NEGATIVE (NEGATIVE); Influenza B, PCR NEGATIVE (NEGATIVE); Resp Syncytial Virus, PCR NEGATIVE (NEGATIVE); SARS-Cov-2 (COVID-19) PCR, MMC NEGATIVE (NEGATIVE)
[2022-10-30 00:58] LABS: Source, Urine Clean Catch
[2022-10-30 02:14] LABS: Bilirubin, Urine Neg (Neg); Blood, Urine 4+ (Neg); Glucose Qualitative, Urine Neg (Neg); Ketones, Urine Neg (Neg); Leukocyte Esterase, Urine 3+ (Neg); Nitrite, Urine Neg (Neg); Protein, Urine 3+ (Neg); Urobilinogen, Urine NORM (Normal)
[2022-10-30 02:16] LABS: Color, Urine Yellow (P-Yellow)
[2022-10-30 02:50] LABS: Appearance, Urine Hazy (Clear); Bacteria Mod /hpf; Squamous Epithelial Cells Few /hpf (Few); White Blood Cells, Urine 50-100 /hpf (0-5)
[2022-10-30] MEDS ORDERED: Nitrofurantoin100 M1 (04:11)
[2022-10-30] MEDS ORDERED: SOAANZ20 M3 PO (04:16)
[2022-10-30] MEDS ORDERED: NOVOLOG100 UNIT/2 INJ (04:23)
[2022-10-30] MEDS ORDERED: IRBESARTAN300 M3 PO (04:29)
[2022-10-30] MEDS ORDERED: TRIM100 PO (04:33)
[2022-10-30 05:48] LABS: BASOPHILS ABSOLUTE AUTO 0.08 K/mm3 (0.00-0.23); BASOPHILS PERCENT AUTO 0 % (0-2); EOSINOPHILS ABSOLUTE AUTO 0.11 K/mm3 (0.00-0.68); EOSINOPHILS PERCENT AUTO 1 % (0-6); Hematocrit 23.8 % (37.0-53.0); Hemoglobin 6.9 g/dL (13.5-17.5); IMMATURE GRAN ABSOLUTE AUTO 0.22 K/mm3 (0.00-0.10); IMMATURE GRAN PERCENT AUTO 1 % (0-1); LYMPHOCYTES ABSOLUTE AUTO 1.13 K/mm3 (0.84-5.20); LYMPHOCYTES PERCENT AUTO 6 % (21-46); MONOCYTES ABSOLUTE AUTO 1.06 K/mm3 (0.16-1.47); MONOCYTES PERCENT AUTO 6 % (4-13); Mean Corpuscular HGB 24.6 pg (26.0-34.0); Mean Corpuscular Volume 85 fL (80-100); Mean Platelet Volume 9.2 fL (9.1-12.4); NEUTROPHILS ABSOLUTE AUTO 16.78 K/mm3 (1.96-9.15); NEUTROPHILS PERCENT AUTO 87 % (41-73); Platelet Count 428 K/mm3 (150-400); RDW Coefficient Variation 18.6 % (11.7-14.2); RDW Standard Deviation 57.7 fL (35.1-46.3); White Blood Cell Count 19.38 K/mm3 (4.00-11.30)
[2022-10-30 06:29] LABS: Albumin, Blood 1.7 g/dL (3.4-5.0); Albumin/Globulin Ratio 0.4 (0.8-1.8); Bilirubin, Total 0.2 mg/dL (0.1-1.0); Bun/Creatinine Ratio 33.1 (12.0-20.0); Calcium, Blood 7.9 mg/dL (8.5-10.1); Creatinine, Blood 1.39 mg/dL (0.60-1.20); Globulin, Blood 4.2 g/dL (2.2-4.0); Potassium, Blood 5.5 mmol/L (3.5-5.5); Total Protein, Blood 5.9 g/dL (6.4-8.2)
--- NOTE | 2022-10-30 06:38 | NUR ---
ASSUMED PT CARE FROM RN IN ED. TRANSFERED FROM [facility] TO SPECIALTY BED VIA CEILING LIFT. PT REPORTS BEING WC BOUND AT HOME. HX OF PARAPLEGIA. A&OX4, ABLE TO FOLLOW DIRECTIONS AND MAKE NEEDS KNOWN. DENIES ANY CHEST PAIN/PRESSURE. HR IS SR IN 90'S AT THIS TIME. BP STABLE. DENIES FEELING SOB. O2 SATS > 92% ON 2 LPM VIA NC. REPORTS WEARING 3 LPM NC AT BASELINE WHILE SLEEPING. AFEBRILE AT THIS TIME, SKIN REMAINS CLAMMY. DRESSINGS ON BILATERAL BUTTOCKS AND RIGHT ANKLE CHANGED AND PHOTOS PLACED IN CHART. PT IS ABLE TO ASSIST WITH ROLLING IN BED. TOLERATES DRESSING CHANGES WITHOUT DISTRESS. COLOSTOMY PRESENT IN RLQ OF ABOMEN, APPLIANCE IN PLACE, SKIN C/D/I AROUND APPLIANCE. CHRONIC WEN CATHETER IN PLACE, PER REPORT NEW CATHETER PLACED IN ED. REQUESTING PAIN MEDICATIONS AT THIS TIME BUT DROWSY, EASILY AROUSABLE. DOES NOT PRESENT WITH ANY VISIBLE DISTRESS. WILL MONITOR AT THIS TIME. CALL LIGHT IN REACH. BED IN LOW POSITION.
--- NOTE | 2022-10-30 08:45 | NUR ---
INITIAL ASSESSMENT: Patient is resting with his eyes closed, easily awakens with verbal stimuli. He is Ox4. He is C/O 7/10 right shoulder pain-he has already been given some pain medications this morning. The resident was at outside the door and gave an order for patients home PRN pain medication. HRR, SR-ST 90s-100s, patient did have a run of SVT this morning,with a rate reaching up into the 180s-pt asymptomatic. LS DIM T/O, patients biox is high 90s on 2L via NC. He states he has a C-Pap that he has been "trying out" at home, he states its difficult to tolerate. He is willing to try it in the hospital as well, he called his to have her bring it when she comes to see him today. BT+, he has an ostomy to the LLQ, secure with a pink stoma draining light brown stool. The patient has a left AKA. RLE, PPP. He has a significant coccyx wound that has been present for years, NOC shift changed the dressing-it is CDI. Patient was repositioned. 1U PRBCs started, pt tolerating well at this time. Call light in reach.
--- NOTE | 2022-10-30 11:30 | NUR ---
UPDATE: PATIENT HAS BEEN RESTING COMFORTABLY IN BED. 2ND UNIT OF PRBCS COMPLETE, GETTING READY TO START THE SECOND. VSS. PT STATES HIS PAIN IS MUCH MORE MANAGEABLE WITH HIS OXYCODONE ON BOARD. HE DENIES OTHER NEEDS AT THIS TIME. CALL LIGHT IN REACH.
--- NOTE | 2022-10-30 15:17 | NUR ---
CONSULT CALLED TO DR EUBANKS BY THIS RN. DR EUBANKS WILL SEE PATIENT IN THE MORNING 10/31/2022.
--- NOTE | 2022-10-30 16:10 | NUR ---
UPDATE: Kathryn from wound care is at the bedside. Dressings removed, there is a questionable area on the right buttock wound that looks like tissue..Dr. Jasso called to come and assess, she is at the bedside-surgical consult called in. Wounds cleansed and redressed. Patient is requesting to rest now. He denies other needs at this time. brought in his home C-Pap-it is at his bedside.
--- NOTE | 2022-10-30 16:12 | NUR ---
WOUND CARE PT IS KNOWN TO THIS RN. 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 R ISCHIAL WOUND HAS DECLINED SIGNIFICANTLY. IT IS MALODOROUS WITH INCREASED UNDERMINING AND NECROTIC TISSUE. WOUND WOULD BENEFIT FROM SURGICAL DEBRIDEMENT. CULTURE OBTAINED AND DR. MEZA NOTIFIED. SHE REPORTS SHE WILL CONSULT SX
[2022-10-30] MEDS ORDERED: FOSFOMYCIN TROME3 G2 PO (16:57)
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
--- NOTE | 2022-10-30 22:58 | NUR ---
CARE ASSUMPTION this rn assumed care at 1900. vital signs stable. tele sr/st 90-110. patient is alert and oriented x4. perrla. patient reports no pain, chest pain/pressure, or shortness of breath. see shift assessment. spo2 >90% on 2l nc. patient plan of care is up to date. call light within reach
[2022-10-31 03:34] VITALS: BP 154/69
[2022-10-31 04:00] LABS: BASOPHILS ABSOLUTE AUTO 0.05 K/mm3 (0.00-0.23); BASOPHILS PERCENT AUTO 1 % (0-2); EOSINOPHILS ABSOLUTE AUTO 0.21 K/mm3 (0.00-0.68); EOSINOPHILS PERCENT AUTO 2 % (0-6); Hematocrit 27.9 % (37.0-53.0); Hemoglobin 8.5 g/dL (13.5-17.5); IMMATURE GRAN ABSOLUTE AUTO 0.18 K/mm3 (0.00-0.10); IMMATURE GRAN PERCENT AUTO 2 % (0-1); LYMPHOCYTES ABSOLUTE AUTO 0.48 K/mm3 (0.84-5.20); LYMPHOCYTES PERCENT AUTO 5 % (21-46); MONOCYTES ABSOLUTE AUTO 0.45 K/mm3 (0.16-1.47); MONOCYTES PERCENT AUTO 5 % (4-13); Mean Corpuscular HGB 25.7 pg (26.0-34.0); Mean Corpuscular HGB Conc 30.5 g/dL (31.5-36.5); Mean Corpuscular Volume 84 fL (80-100); Mean Platelet Volume 8.9 fL (9.1-12.4); NEUTROPHILS ABSOLUTE AUTO 8.54 K/mm3 (1.96-9.15); NEUTROPHILS PERCENT AUTO 86 % (41-73); Platelet Count 422 K/mm3 (150-400); RDW Coefficient Variation 18.1 % (11.7-14.2); RDW Standard Deviation 55.9 fL (35.1-46.3); Red Blood Cell Count 3.31 M/mm3 (4.30-5.90); White Blood Cell Count 9.91 K/mm3 (4.00-11.30)
[2022-10-31 04:20] LABS: Bun/Creatinine Ratio 33.9 (12.0-20.0); Calcium, Blood 7.9 mg/dL (8.5-10.1); Creatinine, Blood 1.24 mg/dL (0.60-1.20); Potassium, Blood 5.1 mmol/L (3.5-5.5)
--- NOTE | 2022-10-31 04:46 | NUR ---
POSITIVE BLOOD CULTURES lab called this rn with positive blood cultures. this rn called md frederick to inform of result and informed relief charge nurse.
--- NOTE | 2022-10-31 05:52 | NUR ---
shift summary patient neuro remains unchanged and intact. vital signs stable. spo2 >90% on 2l nc. patient wore home cpap breifly, but stated the pressure being too strong and that he had an appointment with his primary care provider to discuss this. this rn called respiratory care, but unable to have pressure turned down. patient has reported pain off and on in shoulders throughout this shift, medicated per emar and reposition. patient denies chest pain/pressure or shortness of breath. see pictures in chart for wound. chronic min cath draining with gravity, yellow coloration. reposition q2hr to prevent skin breakdown or worsening of wounds. plan of care is up to date. call light within reach.
[2022-10-31 09:00] VITALS: BP 146/83
[2022-10-31 11:09] VITALS: BP 120/58
[2022-10-31 16:32] VITALS: BP 118/57
--- NOTE | 2022-10-31 18:38 | NUR ---
Shift Summary Pt alert, oriented x4; calm and cooperative with care. Pt resting in bed. q2 turn, lift for assistance. Pt reporting pain to right should and coccyx area, medicated per emar. Home dose of MS contin not ordered, DR notified, new orders entered. Rigth coccyx wound debrided at bedside with Dr Allan. Pt had increased pain after rolling, medicated with PRN, pt still c/o of increased pain, notifed Dr Jasso, new order entered. Pt reporting nausea this afternoon, notified , new order entered, Pt sob with activity, on 3l o2 via nc. Tele sinus tach this am 90-110's, trending down this afternoon 70-80's, bp elevated this am, trending down this afternoon. Abd distender, normal for patient, soft nontender. No other acute changes noted. Will continue to monitor.
[2022-10-31 20:49] VITALS: BP 144/61
[2022-11-01] VITALS (7 sets, daily range): BP systolic 122–157; BP diastolic 47–105
[2022-11-01 04:06] LABS: BASOPHILS ABSOLUTE AUTO 0.05 K/mm3 (0.00-0.23); BASOPHILS PERCENT AUTO 1 % (0-2); EOSINOPHILS ABSOLUTE AUTO 0.44 K/mm3 (0.00-0.68); EOSINOPHILS PERCENT AUTO 5 % (0-6); Hematocrit 27.5 % (37.0-53.0); Hemoglobin 8.1 g/dL (13.5-17.5); IMMATURE GRAN ABSOLUTE AUTO 0.17 K/mm3 (0.00-0.10); IMMATURE GRAN PERCENT AUTO 2 % (0-1); LYMPHOCYTES ABSOLUTE AUTO 0.83 K/mm3 (0.84-5.20); LYMPHOCYTES PERCENT AUTO 10 % (21-46); MONOCYTES PERCENT AUTO 7 % (4-13); Mean Corpuscular HGB 25.2 pg (26.0-34.0); Mean Corpuscular HGB Conc 29.5 g/dL (31.5-36.5); Mean Corpuscular Volume 85 fL (80-100); Mean Platelet Volume 8.6 fL (9.1-12.4); NEUTROPHILS ABSOLUTE AUTO 6.16 K/mm3 (1.96-9.15); NEUTROPHILS PERCENT AUTO 75 % (41-73); Platelet Count 410 K/mm3 (150-400); RDW Coefficient Variation 18.3 % (11.7-14.2); RDW Standard Deviation 57.4 fL (35.1-46.3); Red Blood Cell Count 3.22 M/mm3 (4.30-5.90); White Blood Cell Count 8.25 K/mm3 (4.00-11.30)
[2022-11-01 04:31] LABS: Bun/Creatinine Ratio 34.9 (12.0-20.0); Calcium, Blood 7.8 mg/dL (8.5-10.1); Creatinine, Blood 1.29 mg/dL (0.60-1.20); Potassium, Blood 5.3 mmol/L (3.5-5.5)
--- NOTE | 2022-11-01 06:41 | NUR ---
SHIFT SUMMARY PATIENT ALERT AND ORIENTED X4. MEDICATED PER EMAR FOR PAIN. DRESSING ON COCCYX CHANGED DUE TO DRESSING BEING SATURATED, REPOSITIONED EVERY TWO HOURS. PATIENT ON HOME DOSE OF OXYGEN, SATING HIGH 90'S, HAD NO COMPLAINTS OF SHORTNESS OF BREATH. VITAL SIGNS STABLE, PATIENT DENIES HAVING CHEST PAIN/PRESSURE. NO ACUTE ISSUES NOTED OVERNIGHT. WILL CONINTUE TO MONITOR. CALL LIGHT WITHIN REACH.
--- NOTE | 2022-11-01 08:30 | NUR ---
AM ASSESSMENT: Pt laying in bed, A/O x 4. States that he feels much better today then he did yesterday. C/O 8/10 pain in his R arm that is chronic. Medicated per orders. LS diminished. HR reg. BT positive. Abd very disteneded which is pt's normal. Colostomy to RLQ. Moreno cath draining yellow urine. Moreno is chronic. Pt has wounds to R and L coccyx/gluteal folds. Wounds cleaned and dressed with calcium alginate and ABD dressings. 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 Mediport with TKO fluids running. Pt Repositioned. Denies other needs. Call light in reach. Will monitor.
--- NOTE | 2022-11-01 16:30 | NUR ---
UPDATE: Report given to medical floor Rn. Pt to be transfered to room 354. Stable at time of transfer
--- NOTE | 2022-11-01 19:31 | NUR ---
RN TO RN HANDOFF AT [address] [facility] IN PCU. PATIENT ARRIVED ON UNIT AT 1655. DRESSINGS CHANGED TO BUTTOCK AND RIGHT LEG JUST PRIOR TO TRANSFER SO DRESSINGS LEFT IN PLACE. BARRIATRIC BED, PATIENT CALLS APPROPRIATELY, CALL LIGHT IN REACH.
[2022-11-02 04:13] VITALS: BP 144/77
[2022-11-02 05:17] LABS: BASOPHILS ABSOLUTE AUTO 0.05 K/mm3 (0.00-0.23); BASOPHILS PERCENT AUTO 1 % (0-2); EOSINOPHILS ABSOLUTE AUTO 0.55 K/mm3 (0.00-0.68); EOSINOPHILS PERCENT AUTO 7 % (0-6); Hematocrit 29.8 % (37.0-53.0); Hemoglobin 8.8 g/dL (13.5-17.5); IMMATURE GRAN ABSOLUTE AUTO 0.22 K/mm3 (0.00-0.10); IMMATURE GRAN PERCENT AUTO 3 % (0-1); LYMPHOCYTES PERCENT AUTO 12 % (21-46); MONOCYTES ABSOLUTE AUTO 0.57 K/mm3 (0.16-1.47); MONOCYTES PERCENT AUTO 7 % (4-13); Mean Corpuscular HGB 25.3 pg (26.0-34.0); Mean Corpuscular HGB Conc 29.5 g/dL (31.5-36.5); Mean Corpuscular Volume 86 fL (80-100); Mean Platelet Volume 8.6 fL (9.1-12.4); NEUTROPHILS ABSOLUTE AUTO 5.53 K/mm3 (1.96-9.15); NEUTROPHILS PERCENT AUTO 71 % (41-73); Platelet Count 429 K/mm3 (150-400); RDW Coefficient Variation 18.3 % (11.7-14.2); RDW Standard Deviation 57.5 fL (35.1-46.3); Red Blood Cell Count 3.48 M/mm3 (4.30-5.90); White Blood Cell Count 7.82 K/mm3 (4.00-11.30)
--- NOTE | 2022-11-02 05:33 | NUR ---
SHIFT SUMMARY PRN OXYCODONE GIVEN X2 THIS SHIFT PER PT REQUEST FOR PAIN WITH POSITIVE EFFECT. NO OTHER EVENTS OVERNIGHT. PT ON 3L NC WHICH IS BASELINE WITH NO DESATS. FIRE SAFETY REVIEWED, NO IGNITION SOURCES
[2022-11-02 05:34] LABS: Bun/Creatinine Ratio 32.2 (12.0-20.0); Creatinine, Blood 1.49 mg/dL (0.60-1.20); Potassium, Blood 5.3 mmol/L (3.5-5.5)
[2022-11-02 07:56] VITALS: BP 157/73
[2022-11-02 16:39] VITALS: BP 187/61
--- NOTE | 2022-11-02 19:31 | NUR ---
SHIFT SUMMARY PATIENT LETHARGIC TODAY BUT AWAKES EASILY, DRESSING CHANGES DONE TO BILAT ISCHIAL AND RIGHT LATERAL PRESSURE ULCER. BED IN LOW POSITION. CALL LIGHTIN REACH. PATIENT CALLS APPROPRIATELY.
[2022-11-02 20:06] VITALS: BP 153/78
[2022-11-03 04:35] VITALS: BP 147/45
[2022-11-03 05:57] LABS: BASOPHILS ABSOLUTE AUTO 0.07 K/mm3 (0.00-0.23); BASOPHILS PERCENT AUTO 1 % (0-2); EOSINOPHILS ABSOLUTE AUTO 0.53 K/mm3 (0.00-0.68); EOSINOPHILS PERCENT AUTO 7 % (0-6); Hematocrit 29.1 % (37.0-53.0); Hemoglobin 8.6 g/dL (13.5-17.5); IMMATURE GRAN ABSOLUTE AUTO 0.32 K/mm3 (0.00-0.10); IMMATURE GRAN PERCENT AUTO 4 % (0-1); LYMPHOCYTES ABSOLUTE AUTO 0.87 K/mm3 (0.84-5.20); LYMPHOCYTES PERCENT AUTO 11 % (21-46); MONOCYTES ABSOLUTE AUTO 0.64 K/mm3 (0.16-1.47); MONOCYTES PERCENT AUTO 8 % (4-13); Mean Corpuscular HGB 25.1 pg (26.0-34.0); Mean Corpuscular HGB Conc 29.6 g/dL (31.5-36.5); Mean Corpuscular Volume 85 fL (80-100); Mean Platelet Volume 8.7 fL (9.1-12.4); NEUTROPHILS ABSOLUTE AUTO 5.56 K/mm3 (1.96-9.15); NEUTROPHILS PERCENT AUTO 70 % (41-73); Platelet Count 385 K/mm3 (150-400); RDW Coefficient Variation 17.9 % (11.7-14.2); RDW Standard Deviation 55.7 fL (35.1-46.3); Red Blood Cell Count 3.42 M/mm3 (4.30-5.90); White Blood Cell Count 7.99 K/mm3 (4.00-11.30)
[2022-11-03 06:23] LABS: Bun/Creatinine Ratio 41.9 (12.0-20.0); Calcium, Blood 8.2 mg/dL (8.5-10.1); Creatinine, Blood 1.17 mg/dL (0.60-1.20); Potassium, Blood 5.4 mmol/L (3.5-5.5)
--- NOTE | 2022-11-03 06:35 | NUR ---
END OF SHIFT SUMMARY PT COMPLIANT WITH MEDICATIONS AND CARE PROVIDED. PT A&O x4, VSS. PT ENCOURAGED TO ASSIST CARE STAFF WITH REPOSITIONING MUCH POSSIBLE. WOUND CARE COMPLETED ON DAY SHIFT YESTERDAY 11/02/22. PT ON TELEMETRY SINUS RHYTHM 83 PULSE. OXYGEN SAT AT 96% ON 3L VIA NC. NO SIGNS OF RESP DISTRESS, BREATHS EVEN AND UNLABORED. PT ABLE TO MAKE NEEDS KNOWN. PT REQUESTED PRN GABAPENTIN AND APAP. PT HAS INDWELLING WEN CATH AND COLOSTOMY BAG. SKIN INTEGRITY CHECKED THROUGHOUT THE SHIFT. 0535: PT APPEARS TO BE RESTING COMFORTABLY. CALL LIGHT WITHIN REACH, WCTM.
[2022-11-03 08:02] VITALS: BP 175/49
--- NOTE | 2022-11-03 13:28 | NUR ---
0900 PT FOUND TO BE LAYING IN SATURATED AIR BED CHUCKS AND BETTYE PEREZ POSSIBLE LEAKING. ALSO DRESSINGS FULLY SATURATED AND SKIN AROUND WOUNDS WHITE, MACERATED AND PEALING. LINENS CHANGED AND DRESSINGS CHANGED TO R AND L GLUT, CLEANSED WITH SKINTEGRITY, CALCIUM ALGINATE TO GRANULATING TISSUE. ABD, SKIN BARRIER TO INTACT SKIN, SECURED WITH MEFIX. CALAZYME TO REDNESS AROUND GROIN AND R SKIN FOLD ALONG THIGH, PLACED PILLOW CASE TO PREVENT SKIN ON SKIN.
[2022-11-03 15:32] VITALS: BP 151/68
--- NOTE | 2022-11-03 17:53 | NUR ---
SUMMARY- PT A/O X3. USES CALL LIGHT TO MAKE NEEDS KNOWN. PT IS A PARA, BUT HAS CHRONIC R SHOULDER PAIN. MEDICATED WITH MS CONTIN IN THE AM AND PRN OXY WITH RELEIF. PT IS FREQ SLEEPY, BUT AROUSES EASILY. CHRONIC WOUNDS DRESSED THIS AM. WEN LEAKS AND BED WAS SATURATED, DRESSINGS SATURATED AND SKIN WHITE AND MACERATED SURROUNDING WOUNDS. CLEANSED AND REDRESSED. DRESSINGS REMAIN INTACT AND AIR BED CHUCKS CHANGED AROUND 1600. WEN HAD MIN LEAK. AIR BED IN USE. MEDIPORT PATENT WITH TKO INFUSION. COLOSTOMY WITH NO OUTPUT THIS SHIFT. PT STATES STOOL IN COLOSTOMY WITHIN THE LAST DAY OR 2 BUT NOT DOCUMENTED. IN TO VISIT, SUPPORTIVE IN CARE. WILL REPORT TO NOC SHIFT.
[2022-11-03 19:47] VITALS: BP 164/83
[2022-11-04 03:22] VITALS: BP 158/52
--- NOTE | 2022-11-04 06:39 | NUR ---
TOLERATING CARES AND MEDS, AOX4, PLEASANT, STABLE ON 3L O2 NC, MED PORT ACCESSED AND RUNNING NS KVO. REPORTS SCHEDULED MORPHINE DOES NOT LOWER PAIN, HOWEVER 30 MG OXYCODONE IS EFFECTIVE TO BRING PAIN TO TOLERABLE LEVEL. WEN CATHETER IS PATENT BUT LEAKS ONTO PAD BENEATH, REQUIRES MULTIPLE PAD CHANGES EACH SHIFT, ADEQUATE CLEAR YELLOW URINE. WOUND DRESSINGS CHANGED DURING PREVIOUS SHIFT, C/D/I DURING MY SHIFT. NO ACUTE CHANGES NOTED. FIRE SAFETY REVIEWED.
[2022-11-04 07:46] VITALS: BP 216/57
[2022-11-04 08:10] LABS: Hematocrit 30.7 % (37.0-53.0); Mean Corpuscular HGB 24.7 pg (26.0-34.0); Mean Corpuscular HGB Conc 29.3 g/dL (31.5-36.5); Mean Corpuscular Volume 84 fL (80-100); Mean Platelet Volume 8.3 fL (9.1-12.4); Platelet Count 443 K/mm3 (150-400); RDW Coefficient Variation 17.8 % (11.7-14.2); RDW Standard Deviation 55.3 fL (35.1-46.3); Red Blood Cell Count 3.64 M/mm3 (4.30-5.90); White Blood Cell Count 8.69 K/mm3 (4.00-11.30)
[2022-11-04 08:27] LABS: Bun/Creatinine Ratio 41.9 (12.0-20.0); Calcium, Blood 8.3 mg/dL (8.5-10.1); Creatinine, Blood 0.81 mg/dL (0.60-1.20); Potassium, Blood 5.1 mmol/L (3.5-5.5)
[2022-11-04 08:29] LABS: BAND PERCENT MAN 2 % (0-8); BASOPHILS ABSOLUTE MAN 0.17 K/mm3 (0.00-0.23); BASOPHILS PERCENT MAN 2 % (0-2); EOSINOPHILS ABSOLUTE MAN 0.78 K/mm3 (0.00-0.68); EOSINOPHILS PERCENT MAN 9 % (0-6); LYMPHOCYTES ABSOLUTE MAN 0.69 K/mm3 (0.84-5.20); LYMPHOCYTES PERCENT MAN 8 % (21-46); METAMYELOCYTE ABSOLUTE MAN 0.17 K/mm3 (0.00-0.00); METAMYELOCYTE PERCENT MAN 2 % (0-0); MONOCYTES PERCENT MAN 7 % (4-13); NEUTROPHILS ABSOLUTE MAN 6.25 K/mm3 (1.96-9.15); SEG NEUTROPHILS PERCENT MAN 70 % (41-73); TOTAL CELLS COUNTED 100
--- NOTE | 2022-11-04 09:00 | NUR ---
Pt laying in bed awake, a/ox4, pleasant and cooperative with care, follows commands well, states he has pain in his right shoulder, b/p high this am, gave meds for pain and b/p meds, lungs dim t/o, on 3liters which is baseline, no cough noted, hrr, laka, is parapaligic, moves arms, except right shoulder is hard to move, skin has multiple wounds, btx4, has ostomy to right abd, chronic min cath draining clear yellow urine, andres, call light in reach.
[2022-11-04 09:29] VITALS: BP 219/54
[2022-11-04 12:09] VITALS: BP 197/56
[2022-11-04 15:22] VITALS: BP 169/72
--- NOTE | 2022-11-04 18:56 | NUR ---
pt has been very painful all day, has been turned and dressings changed, they were saturated on the bottom, no further changes this shift. call light in reach.
[2022-11-05 01:19] VITALS: BP 190/78
[2022-11-05 01:50] VITALS: BP 164/59
--- NOTE | 2022-11-05 05:57 | NUR ---
PRN LABETALOL GIVEN FOR HYPERTENSION, REPLACED TELE ORDER TO COMPLY WITH ORDER THAT STATES "CARDIAC MONITORING REQUIRED." LABETALOL EFFECTIVE. PT IS HYPERTENSIVE AND REQUIRES 3L NC. MIN ASSIST REQUIRED FOR TURNS, PT DOES MOST OF THE REPOSITIONING WORK. FIRE SAFETY REVIEWED.
[2022-11-05 06:48] LABS: Hematocrit 29.9 % (37.0-53.0); Hemoglobin 8.8 g/dL (13.5-17.5); Mean Corpuscular HGB 25.1 pg (26.0-34.0); Mean Corpuscular HGB Conc 29.4 g/dL (31.5-36.5); Mean Corpuscular Volume 85 fL (80-100); Mean Platelet Volume 8.4 fL (9.1-12.4); Platelet Count 452 K/mm3 (150-400); RDW Coefficient Variation 18.2 % (11.7-14.2); RDW Standard Deviation 56.1 fL (35.1-46.3); White Blood Cell Count 9.49 K/mm3 (4.00-11.30)
[2022-11-05 07:08] LABS: BAND PERCENT MAN 2 % (0-8); BASOPHILS PERCENT MAN 0 % (0-2); EOSINOPHILS ABSOLUTE MAN 0.56 K/mm3 (0.00-0.68); EOSINOPHILS PERCENT MAN 6 % (0-6); LYMPHOCYTES ABSOLUTE MAN 1.13 K/mm3 (0.84-5.20); LYMPHOCYTES PERCENT MAN 12 % (21-46); METAMYELOCYTE ABSOLUTE MAN 0.28 K/mm3 (0.00-0.00); METAMYELOCYTE PERCENT MAN 3 % (0-0); MONOCYTES ABSOLUTE MAN 0.37 K/mm3 (0.16-1.47); MONOCYTES PERCENT MAN 4 % (4-13); MYELOCYTE ABSOLUTE MAN 0.09 K/mm3 (0.00-0.00); MYELOCYTE PERCENT MAN 1 % (0-0); NEUTROPHILS ABSOLUTE MAN 7.02 K/mm3 (1.96-9.15); SEG NEUTROPHILS PERCENT MAN 72 % (41-73); TOTAL CELLS COUNTED 100
[2022-11-05 07:09] LABS: Bun/Creatinine Ratio 36.1 (12.0-20.0); Calcium, Blood 8.4 mg/dL (8.5-10.1); Creatinine, Blood 0.78 mg/dL (0.60-1.20); Potassium, Blood 5.5 mmol/L (3.5-5.5)
--- NOTE | 2022-11-05 09:00 | NUR ---
Pt laying in bed, awake a/ox4, pleasant and cooperative with care, follows commands well, reports pain at 6/10, states he is feeling much better than yesterday, got some sleep last night, will give pain meds every four hrs, call light in reach.
[2022-11-05] MEDS ORDERED: VISBIOME 112.51 EACH PO (15:28)
[2022-11-05 18:02] VITALS: BP 149/55
--- NOTE | 2022-11-05 18:26 | NUR ---
Pt has had much better pain control today, dressings got changed, spouce in to see him, plan is for him to go home tomorrow. no further changes this shift. call light in reach.
[2022-11-05 19:17] VITALS: BP 161/57
[2022-11-06 00:51] VITALS: BP 137/62
[2022-11-06 05:16] LABS: Hemoglobin 8.8 g/dL (13.5-17.5); Mean Corpuscular HGB Conc 29.3 g/dL (31.5-36.5); Mean Corpuscular Volume 85 fL (80-100); Mean Platelet Volume 8.6 fL (9.1-12.4); Platelet Count 467 K/mm3 (150-400); RDW Coefficient Variation 18.5 % (11.7-14.2); RDW Standard Deviation 57.2 fL (35.1-46.3); Red Blood Cell Count 3.52 M/mm3 (4.30-5.90); White Blood Cell Count 10.63 K/mm3 (4.00-11.30)
[2022-11-06 05:56] LABS: Ferritin, Serum 1388 ng/mL (26-388); Iron Serum 40 ug/dL (65-175); Total Iron Binding Capacity 182 ug/dL (250-450)
[2022-11-06 05:57] LABS: Anion Gap Unable to Calculate mmol/L (6-16); Blood Urea Nitrogen 24 mg/dL (8-24); CO2, Blood 31 mmol/L (21-32); Calcium, Blood 8.5 mg/dL (8.5-10.1); Chloride, Blood 109 mmol/L (98-108); Creatinine, Blood 0.75 mg/dL (0.60-1.20); Glomerular Filtration Rate 98 (60-); Glucose, Blood 105 mg/dL (70-99); Potassium, Blood 5.5 mmol/L (3.5-5.5); Sodium, Blood 139 mmol/L (136-145)
[2022-11-06 06:26] LABS: BAND PERCENT MAN 1 % (0-8); BASOPHILS PERCENT MAN 0 % (0-2); EOSINOPHILS ABSOLUTE MAN 0.85 K/mm3 (0.00-0.68); EOSINOPHILS PERCENT MAN 8 % (0-6); LYMPHOCYTES ABSOLUTE MAN 1.48 K/mm3 (0.84-5.20); LYMPHOCYTES PERCENT MAN 14 % (21-46); METAMYELOCYTE ABSOLUTE MAN 0.74 K/mm3 (0.00-0.00); METAMYELOCYTE PERCENT MAN 7 % (0-0); MONOCYTES ABSOLUTE MAN 0.31 K/mm3 (0.16-1.47); MONOCYTES PERCENT MAN 3 % (4-13); NEUTROPHILS ABSOLUTE MAN 7.22 K/mm3 (1.96-9.15); SEG NEUTROPHILS PERCENT MAN 67 % (41-73); TOTAL CELLS COUNTED 100
--- NOTE | 2022-11-06 06:55 | NUR ---
UNEVENTFUL NIGHT, NO ACUTE CHANGES NOTED. NSR ON TELE, BP IS IMPROVED COMPARED TO LAST NIGHT. AOX4, PLEASANT, WEN IN PLACE AND IS PATENT WITH CLEAR YELLOW OUTPUT. WOUND DRESSINGS CHANGED DUE TO LIGHT SATURATION. PAIN MEDS DECREASE PAIN TO MODERATE LEVEL WHICH PATIENT FEELS IS ADEQUATE. FIRE SAFETY REVIEWED.
[2022-11-06 07:30] VITALS: BP 147/64
[2022-11-06 09:14] VITALS: BP 147/67
--- NOTE | 2022-11-06 15:21 | NUR ---
PT WAS DISCHARGED TODAY @ 1420 WITH ALL PERSONAL ITEMS. PT AOX4 AND COOPERATIVE OF CARE. PT'S BROUGHT ELECTRIC CHAIR AND PT WITH AND FRIENDS ASSISTANCE USED SLIDE BOARD FOR TRANSFER. PAPERWORK REVIEWED AND EDUCATIONAL MATERIAL SENT WITH PT. NO DISTRESS NOTED. PT WAS ESCORTED OUT BY HIS AND FRIEND. PT TREATED FOR PAIN TODAY PER EMAR.
[2022-11-17] MEDS ORDERED: NOVOLIN N100 UNIT/2 SC (14:28)
== END 2022-11-06 15:10 | disposition home health service (06) | DRG 853 ==
LOC: ER 22:35 → PCU 22:36 → MEDS 10-30 02:30 → PCU 10-30 02:31 → MEDS 11-01 16:54
PROVIDERS: Family Medicine; Student in an Organized Health Care Education/Training Program; ADMIT Internal Medicine
PROC: 0T2BX0Z Change Drainage Device in Bladder, External Approach (ICD-10-PCS; principal; 2022-10-30)
PROC: 30233N1 Transfusion of Nonautologous Red Blood Cells into Peripheral Vein, Percutaneous Approach (ICD-10-PCS; 2022-10-30)
PROC: 3E03329 Introduction of Other Anti-infective into Peripheral Vein, Percutaneous Approach (ICD-10-PCS; 2022-10-30)
PROC: 0KDP0ZZ Extraction of Left Hip Muscle, Open Approach (ICD-10-PCS; 2022-10-31)
DX: A41.9 Sepsis, unspecified organism (principal); L89.324 Pressure ulcer of left buttock, stage 4; N17.9 Acute kidney failure, unspecified; G82.20 Paraplegia, unspecified; N39.0 Urinary tract infection, site not specified; G93.40 Encephalopathy, unspecified; Z68.43 Body mass index [BMI] 50.0-59.9, adult; R65.20 Severe sepsis without septic shock; E11.622 Type 2 diabetes mellitus with other skin ulcer; L89.159 Pressure ulcer of sacral region, unspecified stage; Z79.4 Long term (current) use of insulin; L08.9 Local infection of the skin and subcutaneous tissue, unspecified; I12.9 Hypertensive chronic kidney disease with stage 1 through stage 4 chronic kidney disease, or unspecified chronic kidney disease; N18.9 Chronic kidney disease, unspecified; Z20.822 Contact with and (suspected) exposure to COVID-19; D63.1 Anemia in chronic kidney disease; G47.33 Obstructive sleep apnea (adult) (pediatric); N31.9 Neuromuscular dysfunction of bladder, unspecified; Z88.1 Allergy status to other antibiotic agents; E11.69 Type 2 diabetes mellitus with other specified complication; E11.22 Type 2 diabetes mellitus with diabetic chronic kidney disease; Z88.2 Allergy status to sulfonamides; Z88.8 Allergy status to other drugs, medicaments and biological substances; Z79.899 Other long term (current) drug therapy; Z79.891 Long term (current) use of opiate analgesic; Z89.512 Acquired absence of left leg below knee; Z98.1 Arthrodesis status; Z98.890 Other specified postprocedural states; Z93.3 Colostomy status; I45.10 Unspecified right bundle-branch block; E87.5 Hyperkalemia; I48.91 Unspecified atrial fibrillation; Z98.2 Presence of cerebrospinal fluid drainage device; Z95.9 Presence of cardiac and vascular implant and graft, unspecified; E66.9 Obesity, unspecified; D50.9 Iron deficiency anemia, unspecified; B96.89 Other specified bacterial agents as the cause of diseases classified elsewhere; B96.6 Bacteroides fragilis [B. fragilis] as the cause of diseases classified elsewhere
CPT/HCPCS: 0241U; 36415; 36430; 51702; 71045; 74176; 80048; 80053; 81001; 82728; 82947; 83540; 83550; 83605; 85025; 86850; 86900; 86901; 86923; 87040; 87070; 87075; 87076; 87077; 87086; 87185; 87186; 87205; 93005; 93010; 94660; 94760; 94762; 96365; 96367; 99285-25; A9270; J0878; J1170; J1642; J1650; J1815; J2185; J2405; J2543; J3010; J7030; J7040; P9016

== ENCOUNTER → 2022-11-09 | Outpatient (CLI) | payer MEDICARE, BC ==
[~2022-11-09] MED LIST changes: +NOVOLOG100 UNIT/2 INJ; +Nitrofurantoin100 M1
== END ==
LOC: LAB 17:45 → LAB SHORT 17:45
DX: L89.314 Pressure ulcer of right buttock, stage 4 (principal); B96.89 Other specified bacterial agents as the cause of diseases classified elsewhere
CPT/HCPCS: 87070; 87075; 87077; 87186; 87205

== ENCOUNTER 2022-12-18 12:19 | Emergency (ER) | payer MEDICARE, BC ==
[~2022-12-18] VITALS: Ht 188 cm; Wt 137.9 kg
[~2022-12-18 12:19] MED LIST changes: +CIPR100; +MICONAZOLE NITR85 GM TOP
[2022-12-18] MEDS ORDERED: Cipro500 MG PO (13:25)
[2022-12-18 15:24] LABS: BASOPHILS ABSOLUTE AUTO 0.06 K/mm3 (0.00-0.23); BASOPHILS PERCENT AUTO 1 % (0-2); EOSINOPHILS ABSOLUTE AUTO 0.77 K/mm3 (0.00-0.68); EOSINOPHILS PERCENT AUTO 6 % (0-6); Hematocrit 26.4 % (37.0-53.0); Hemoglobin 7.6 g/dL (13.5-17.5); IMMATURE GRAN ABSOLUTE AUTO 0.34 K/mm3 (0.00-0.10); IMMATURE GRAN PERCENT AUTO 3 % (0-1); LYMPHOCYTES ABSOLUTE AUTO 1.43 K/mm3 (0.84-5.20); LYMPHOCYTES PERCENT AUTO 11 % (21-46); MONOCYTES ABSOLUTE AUTO 0.69 K/mm3 (0.16-1.47); MONOCYTES PERCENT AUTO 5 % (4-13); Mean Corpuscular HGB 25.2 pg (26.0-34.0); Mean Corpuscular HGB Conc 28.8 g/dL (31.5-36.5); Mean Corpuscular Volume 88 fL (80-100); Mean Platelet Volume 8.5 fL (9.1-12.4); NEUTROPHILS ABSOLUTE AUTO 9.66 K/mm3 (1.96-9.15); NEUTROPHILS PERCENT AUTO 75 % (41-73); Platelet Count 504 K/mm3 (150-400); RDW Standard Deviation 54.4 fL (35.1-46.3); Red Blood Cell Count 3.01 M/mm3 (4.30-5.90); White Blood Cell Count 12.95 K/mm3 (4.00-11.30)
[2022-12-18 15:57] LABS: Albumin, Blood 2.2 g/dL (3.4-5.0); Albumin/Globulin Ratio 0.5 (0.8-1.8); Bilirubin, Total 0.1 mg/dL (0.1-1.0); Bun/Creatinine Ratio 31.1 (12.0-20.0); Calcium, Blood 8.4 mg/dL (8.5-10.1); Creatinine, Blood 1.32 mg/dL (0.60-1.20); Globulin, Blood 4.7 g/dL (2.2-4.0); Potassium, Blood 5.7 mmol/L (3.5-5.5); Total Protein, Blood 6.9 g/dL (6.4-8.2)
[2022-12-18 17:00] VITALS: BP 142/68
== END 2022-12-18 17:34 | disposition home or self-care (01) ==
LOC: ER 12:19
PROVIDERS: Physician Assistant
DX: N39.0 Urinary tract infection, site not specified (principal); G82.20 Paraplegia, unspecified; E11.9 Type 2 diabetes mellitus without complications; Z99.3 Dependence on wheelchair; Z88.1 Allergy status to other antibiotic agents; Z79.899 Other long term (current) drug therapy; Z79.4 Long term (current) use of insulin
CPT/HCPCS: 80053; 85025; 96365; 99283-25; J1642; J2185; J7030

== ENCOUNTER 2022-12-19 02:17 | Day surgery (SDC) | payer MEDICARE, BC ==
[~2022-12-19 02:17] MED LIST changes: +Cipro500 MG PO
[2022-12-19 16:00] VITALS: BP 149/46
[2022-12-19 17:16] LABS: BASOPHILS ABSOLUTE AUTO 0.06 K/mm3 (0.00-0.23); BASOPHILS PERCENT AUTO 1 % (0-2); EOSINOPHILS ABSOLUTE AUTO 0.67 K/mm3 (0.00-0.68); EOSINOPHILS PERCENT AUTO 5 % (0-6); Hematocrit 26.4 % (37.0-53.0); Hemoglobin 7.5 g/dL (13.5-17.5); IMMATURE GRAN ABSOLUTE AUTO 0.25 K/mm3 (0.00-0.10); IMMATURE GRAN PERCENT AUTO 2 % (0-1); LYMPHOCYTES ABSOLUTE AUTO 1.19 K/mm3 (0.84-5.20); LYMPHOCYTES PERCENT AUTO 10 % (21-46); MONOCYTES ABSOLUTE AUTO 0.55 K/mm3 (0.16-1.47); MONOCYTES PERCENT AUTO 4 % (4-13); Mean Corpuscular HGB 25.4 pg (26.0-34.0); Mean Corpuscular HGB Conc 28.4 g/dL (31.5-36.5); Mean Corpuscular Volume 90 fL (80-100); Mean Platelet Volume 8.9 fL (9.1-12.4); NEUTROPHILS ABSOLUTE AUTO 9.73 K/mm3 (1.96-9.15); NEUTROPHILS PERCENT AUTO 78 % (41-73); Platelet Count 468 K/mm3 (150-400); RDW Coefficient Variation 17.2 % (11.7-14.2); RDW Standard Deviation 56.1 fL (35.1-46.3); Red Blood Cell Count 2.95 M/mm3 (4.30-5.90); White Blood Cell Count 12.45 K/mm3 (4.00-11.30)
[2022-12-19 17:32] LABS: Alanine Aminotransfer (ALT/SGP 16 U/L (12-78); Albumin, Blood 2.1 g/dL (3.4-5.0); Albumin/Globulin Ratio 0.4 (0.8-1.8); Alk Phos 83 U/L (50-136); Aspartate Aminotrans (AST/SGOT 18 U/L (12-37); Bilirubin, Total 0.1 mg/dL (0.1-1.0); Blood Urea Nitrogen 40 mg/dL (8-24); CHOL/HDL RATIO 4.1; CO2, Blood 29 mmol/L (21-32); Cholesterol 138 mg/dL (50-200); Creatinine, Blood 1.48 mg/dL (0.60-1.20); Ferritin, Serum 744 ng/mL (26-388); Globulin, Blood 4.7 g/dL (2.2-4.0); Glomerular Filtration Rate 51 (60-); Glucose, Blood 182 mg/dL (70-99); HDL Cholesterol 34 mg/dL (>39); Iron Serum 18 ug/dL (65-175); LDL/HDL RATIO 1.9; Low Density Lipoprotein Chol 66 mg/dL (0-110); Percent Saturation 7.4 % (20.0-50.0); Phosphorus, Blood 3.7 mg/dL (2.5-4.9); Potassium, Blood 5.3 mmol/L (3.5-5.5); Sodium, Blood 139 mmol/L (136-145); Total Iron Binding Capacity 244 ug/dL (250-450); Total Protein, Blood 6.8 g/dL (6.4-8.2); Triglycerides 191 mg/dL (30-160); Very Low Density Lipoprot Chol 38 mg/dL (6-32)
[2022-12-19 17:55] LABS: Calcium, Blood 7.9 mg/dL (8.5-10.1)
[2022-12-19 18:01] LABS: Anion Gap 2 mmol/L (6-16); Chloride, Blood 108 mmol/L (98-108)
== END 2022-12-19 16:57 | disposition home or self-care (01) ==
LOC: ATC 02:17
PROVIDERS: Nurse Practitioner Family
DX: N39.0 Urinary tract infection, site not specified (principal); G82.20 Paraplegia, unspecified; Z99.3 Dependence on wheelchair
CPT/HCPCS: 80053; 80061; 82728; 83036; 83540; 83550; 84100; 85025; 96365; J1335; J1642

== ENCOUNTER 2022-12-20 03:02 | Day surgery (SDC) | payer MEDICARE, BC ==
[2022-12-20 15:27] VITALS: BP 165/62
== END 2022-12-20 15:45 | disposition home or self-care (01) ==
LOC: ATC 03:02
DX: N39.0 Urinary tract infection, site not specified (principal); E11.9 Type 2 diabetes mellitus without complications; G82.20 Paraplegia, unspecified; Z88.1 Allergy status to other antibiotic agents; Z88.8 Allergy status to other drugs, medicaments and biological substances; Z79.4 Long term (current) use of insulin; Z79.899 Other long term (current) drug therapy
CPT/HCPCS: 96365; J1335; J1642

== ENCOUNTER 2022-12-21 02:31 | Day surgery (SDC) | payer MEDICARE, BC ==
[2022-12-21 15:42] VITALS: BP 160/54
== END 2022-12-21 23:49 | disposition home or self-care (01) ==
LOC: ATC 02:31
DX: N39.0 Urinary tract infection, site not specified (principal)
CPT/HCPCS: 96365; J1335; J1642

== ENCOUNTER 2022-12-22 05:43 | Day surgery (SDC) | payer MEDICARE, BC ==
[2022-12-22 15:08] VITALS: BP 151/64
== END 2022-12-22 15:24 | disposition home or self-care (01) ==
LOC: ATC 05:43
DX: N39.0 Urinary tract infection, site not specified (principal)
CPT/HCPCS: 96365; J1335; J1642

== ENCOUNTER 2022-12-23 06:22 | Day surgery (SDC) | payer MEDICARE, BC ==
[2022-12-23 13:26] VITALS: BP 162/56
== END 2022-12-23 14:00 | disposition home or self-care (01) ==
LOC: ATC 06:22
DX: N39.0 Urinary tract infection, site not specified (principal)
CPT/HCPCS: 96365; J1335; J1642

== ENCOUNTER 2022-12-24 01:47 | Day surgery (SDC) | payer MEDICARE, BC ==
[2022-12-24 15:20] VITALS: BP 162/61
== END 2022-12-24 15:43 | disposition home or self-care (01) ==
LOC: ATC 01:47
DX: N39.0 Urinary tract infection, site not specified (principal); E11.9 Type 2 diabetes mellitus without complications; Z88.1 Allergy status to other antibiotic agents; Z88.8 Allergy status to other drugs, medicaments and biological substances; Z79.4 Long term (current) use of insulin; Z79.899 Other long term (current) drug therapy
CPT/HCPCS: 96374; J1335; J1642

== ENCOUNTER → 2023-01-01 | Outpatient (CLI) | payer MEDICARE, BC ==
[2023-01-01 19:18] LABS: Source, Urine Clean Catch
[2023-01-01 19:30] LABS: Appearance, Urine Turbid (Clear); Bilirubin, Urine Neg (Neg); Blood, Urine 5+ (Neg); Color, Urine Yellow (P-Yellow); Glucose Qualitative, Urine Neg (Neg); Ketones, Urine Neg (Neg); Leukocyte Esterase, Urine 3+ (Neg); Nitrite, Urine Neg (Neg); Protein, Urine 3+ (Neg); Urobilinogen, Urine NORM (Normal)
[2023-01-01 19:51] LABS: White Blood Cells, Urine TNTC /hpf (0-5)
[2023-01-01 19:55] LABS: Bacteria Few /hpf; Squamous Epithelial Cells Few /hpf (Few)
[2023-01-01 19:56] LABS: Yeast/Fungi Urine Few /hpf
== END | disposition home or self-care (01) ==
LOC: LAB SHORT 10:00 → LAB 10:00
PROVIDERS: Nurse Practitioner Family
DX: N39.0 Urinary tract infection, site not specified (principal)
CPT/HCPCS: 81001; 87086

== ENCOUNTER 2023-01-03 04:56 | Day surgery (SDC) | payer MEDICARE, BC ==
[2023-01-03 13:39] VITALS: BP 141/66
== END 2023-01-03 14:40 | disposition home or self-care (01) ==
LOC: ATC 04:56
DX: D64.9 Anemia, unspecified (principal)
CPT/HCPCS: 96365; J1642; J2916

== ENCOUNTER 2023-01-08 02:14 | Day surgery (SDC) | payer MEDICARE, BC ==
[2023-01-08 13:54] VITALS: BP 157/67
== END 2023-01-08 15:32 | disposition home or self-care (01) ==
LOC: ATC 02:14
DX: N39.0 Urinary tract infection, site not specified (principal); L89.324 Pressure ulcer of left buttock, stage 4; I10 Essential (primary) hypertension; L89.513 Pressure ulcer of right ankle, stage 3; E11.42 Type 2 diabetes mellitus with diabetic polyneuropathy; Z79.4 Long term (current) use of insulin; Z88.0 Allergy status to penicillin; Z88.2 Allergy status to sulfonamides; Z88.5 Allergy status to narcotic agent; Z88.1 Allergy status to other antibiotic agents
CPT/HCPCS: 96365; J1642; J2916

== ENCOUNTER 2023-01-10 02:02 | Day surgery (SDC) | payer MEDICARE, BC ==
[2023-01-10 13:30] VITALS: BP 154/55; BP 154/85
== END 2023-01-10 14:34 | disposition home or self-care (01) ==
LOC: ATC 02:02
DX: E11.42 Type 2 diabetes mellitus with diabetic polyneuropathy (principal); L89.513 Pressure ulcer of right ankle, stage 3; L89.324 Pressure ulcer of left buttock, stage 4; E11.69 Type 2 diabetes mellitus with other specified complication; M86.351 Chronic multifocal osteomyelitis, right femur; T83.511D Infection and inflammatory reaction due to indwelling urethral catheter, subsequent encounter; Y73.8 Miscellaneous gastroenterology and urology devices associated with adverse incidents, not elsewhere classified; I10 Essential (primary) hypertension; Z88.1 Allergy status to other antibiotic agents; Z88.8 Allergy status to other drugs, medicaments and biological substances; Z88.0 Allergy status to penicillin; Z88.5 Allergy status to narcotic agent; Z88.2 Allergy status to sulfonamides; Z79.4 Long term (current) use of insulin; Z79.899 Other long term (current) drug therapy
CPT/HCPCS: 96365; J1642; J2916

== ENCOUNTER 2023-01-11 02:30 | Day surgery (SDC) | payer MEDICARE, BC ==
[2023-01-11 13:38] VITALS: BP 141/49
== END 2023-01-11 14:39 | disposition home or self-care (01) ==
LOC: ATC 02:30
DX: E11.42 Type 2 diabetes mellitus with diabetic polyneuropathy (principal); D64.9 Anemia, unspecified
CPT/HCPCS: 96365; J1642; J2916

== ENCOUNTER 2023-01-20 10:40 | Emergency (ER) | payer MEDICARE, BC ==
[~2023-01-20] VITALS: Ht 185.4 cm; Wt 142.9 kg
[2023-01-20 11:47] LABS: BASOPHILS ABSOLUTE AUTO 0.06 K/mm3 (0.00-0.23); BASOPHILS PERCENT AUTO 1 % (0-2); EOSINOPHILS PERCENT AUTO 2 % (0-6); Hemoglobin 8.5 g/dL (13.5-17.5); IMMATURE GRAN ABSOLUTE AUTO 0.05 K/mm3 (0.00-0.10); IMMATURE GRAN PERCENT AUTO 1 % (0-1); LYMPHOCYTES ABSOLUTE AUTO 0.91 K/mm3 (0.84-5.20); LYMPHOCYTES PERCENT AUTO 11 % (21-46); MONOCYTES ABSOLUTE AUTO 0.63 K/mm3 (0.16-1.47); MONOCYTES PERCENT AUTO 8 % (4-13); Mean Corpuscular HGB Conc 29.3 g/dL (31.5-36.5); Mean Corpuscular Volume 89 fL (80-100); Mean Platelet Volume 9.4 fL (9.1-12.4); NEUTROPHILS ABSOLUTE AUTO 6.35 K/mm3 (1.96-9.15); NEUTROPHILS PERCENT AUTO 78 % (41-73); Platelet Count 400 K/mm3 (150-400); RDW Coefficient Variation 16.7 % (11.7-14.2); RDW Standard Deviation 54.9 fL (35.1-46.3); Red Blood Cell Count 3.27 M/mm3 (4.30-5.90)
[2023-01-20 12:15] LABS: Calcium, Blood 8.4 mg/dL (8.5-10.1); Creatinine, Blood 1.37 mg/dL (0.60-1.20); Potassium, Blood 5.7 mmol/L (3.5-5.5)
[2023-01-20 13:36] LABS: Source, Urine Foley catheter
[2023-01-20 13:46] LABS: Appearance, Urine Cloudy (Clear); Bilirubin, Urine Neg (Neg); Blood, Urine 4+ (Neg); Color, Urine Yellow (P-Yellow); Glucose Qualitative, Urine Neg (Neg); Ketones, Urine Neg (Neg); Leukocyte Esterase, Urine 3+ (Neg); Nitrite, Urine Pos (Neg); Protein, Urine 3+ (Neg); Urobilinogen, Urine NORM (Normal)
[2023-01-20 14:16] VITALS: BP 169/97
[2023-01-20 15:09] LABS: White Blood Cells, Urine TNTC /hpf (0-5)
[2023-01-20 15:10] LABS: Bacteria Many /hpf; Squamous Epithelial Cells Few /hpf (Few)
== END 2023-01-20 11:43 | disposition home or self-care (01) ==
LOC: ER 10:40
PROVIDERS: Emergency Medicine
DX: T83.511A Infection and inflammatory reaction due to indwelling urethral catheter, initial encounter (principal); N39.0 Urinary tract infection, site not specified; Y73.2 Prosthetic and other implants, materials and accessory gastroenterology and urology devices associated with adverse incidents; E11.9 Type 2 diabetes mellitus without complications; G47.33 Obstructive sleep apnea (adult) (pediatric); D53.9 Nutritional anemia, unspecified; Z87.440 Personal history of urinary (tract) infections; M86.9 Osteomyelitis, unspecified; Z79.4 Long term (current) use of insulin; Z79.899 Other long term (current) drug therapy; Z88.1 Allergy status to other antibiotic agents; Z88.2 Allergy status to sulfonamides; Z88.8 Allergy status to other drugs, medicaments and biological substances
CPT/HCPCS: 36415; 80048; 81001; 83605; 85025; 93005; 93010; 96361; 96365; 99284-25; J1642; J2185; J7030

== ENCOUNTER 2023-01-21 13:43 | Day surgery (SDC) | payer MEDICARE, BC ==
[2023-01-21 14:19] VITALS: BP 175/68
== END 2023-01-21 14:38 | disposition home or self-care (01) ==
LOC: ATC 13:43
DX: N39.0 Urinary tract infection, site not specified (principal); Z88.2 Allergy status to sulfonamides; Z88.1 Allergy status to other antibiotic agents; E11.9 Type 2 diabetes mellitus without complications; G47.33 Obstructive sleep apnea (adult) (pediatric)
CPT/HCPCS: 96365; J1335; J1642

== ENCOUNTER 2023-01-22 01:20 | Day surgery (SDC) | payer MEDICARE, BC ==
[2023-01-22 13:52] VITALS: BP 153/53
== END 2023-01-22 14:12 | disposition home or self-care (01) ==
LOC: ATC 01:20
DX: N39.0 Urinary tract infection, site not specified (principal); E11.9 Type 2 diabetes mellitus without complications; G47.33 Obstructive sleep apnea (adult) (pediatric); Z79.4 Long term (current) use of insulin; Z79.899 Other long term (current) drug therapy; Z88.8 Allergy status to other drugs, medicaments and biological substances
CPT/HCPCS: 96365; J1335; J1642

== ENCOUNTER 2023-01-23 01:49 | Day surgery (SDC) | payer MEDICARE, BC ==
[2023-01-23 13:50] VITALS: BP 159/49
== END 2023-01-23 14:12 | disposition home or self-care (01) ==
LOC: ATC 01:49
DX: N39.0 Urinary tract infection, site not specified (principal); E11.9 Type 2 diabetes mellitus without complications; Z79.4 Long term (current) use of insulin; Z88.8 Allergy status to other drugs, medicaments and biological substances; Z79.899 Other long term (current) drug therapy
CPT/HCPCS: 96365; J1335; J1642

== ENCOUNTER 2023-01-24 02:24 | Day surgery (SDC) | payer MEDICARE, BC ==
[2023-01-24 14:12] VITALS: BP 132/49
== END 2023-01-24 14:28 | disposition home or self-care (01) ==
LOC: ATC 02:24
DX: N39.0 Urinary tract infection, site not specified (principal); N31.9 Neuromuscular dysfunction of bladder, unspecified; E11.9 Type 2 diabetes mellitus without complications; G47.33 Obstructive sleep apnea (adult) (pediatric); Z88.1 Allergy status to other antibiotic agents; Z88.8 Allergy status to other drugs, medicaments and biological substances; Z79.4 Long term (current) use of insulin; Z79.899 Other long term (current) drug therapy
CPT/HCPCS: 96365; J1335; J1642

== ENCOUNTER 2023-01-25 03:56 | Day surgery (SDC) | payer MEDICARE, BC ==
[2023-01-25 14:03] VITALS: BP 159/49
== END 2023-01-25 14:18 | disposition home or self-care (01) ==
LOC: ATC 03:56
DX: N39.0 Urinary tract infection, site not specified (principal); E11.9 Type 2 diabetes mellitus without complications; Z88.2 Allergy status to sulfonamides; Z88.8 Allergy status to other drugs, medicaments and biological substances; Z79.4 Long term (current) use of insulin
CPT/HCPCS: 96365; J1335; J1642

== ENCOUNTER 2023-01-26 03:20 | Day surgery (SDC) | payer MEDICARE, BC ==
[2023-01-26 13:29] VITALS: BP 151/61
== END 2023-01-26 13:53 | disposition home or self-care (01) ==
LOC: ATC 03:20
DX: N39.0 Urinary tract infection, site not specified (principal); E11.9 Type 2 diabetes mellitus without complications; Z88.2 Allergy status to sulfonamides; Z88.1 Allergy status to other antibiotic agents; Z79.4 Long term (current) use of insulin
CPT/HCPCS: 96365; J1335; J1642

== ENCOUNTER → 2023-02-06 | Outpatient (CLI) | payer MEDICARE, BC | LOC: LAB 18:09 → LAB SHORT 18:09 | DX: L89.324 Pressure ulcer of left buttock, stage 4 (principal); L89.894 Pressure ulcer of other site, stage 4; L08.89 Other specified local infections of the skin and subcutaneous tissue | CPT/HCPCS: 87070; 87077; 87186; 87205 ==

== ENCOUNTER → 2023-02-11 | Outpatient (CLI) | payer MEDICARE, BC ==
[2023-02-11 16:58] LABS: Source, Urine Straight Cath
[2023-02-11 17:39] LABS: Appearance, Urine Turbid (Clear); Bilirubin, Urine Neg (Neg); Blood, Urine 5+ (Neg); Color, Urine Yellow (P-Yellow); Glucose Qualitative, Urine Neg (Neg); Ketones, Urine Neg (Neg); Leukocyte Esterase, Urine 3+ (Neg); Nitrite, Urine Pos (Neg); Protein, Urine 3+ (Neg); Specific Gravity, Urine 1.015 (1.003-1.022); Urobilinogen, Urine NORM (Normal)
[2023-02-11 17:57] LABS: Red Blood Cells, Urine 50-100 /hpf (0-2); White Blood Cells, Urine TNTC /hpf (0-5)
[2023-02-11 17:58] LABS: Bacteria Many /hpf; Squamous Epithelial Cells Rare /hpf (Few)
== END ==
LOC: LAB SHORT 11:00 → LAB 11:00
PROVIDERS: Nurse Practitioner Family
DX: N39.0 Urinary tract infection, site not specified (principal)
CPT/HCPCS: 81001; 87086

== ENCOUNTER → 2023-02-15 | Outpatient (CLI) | payer MEDICARE, BC ==
[2023-02-15 14:50] LABS: Source, Urine Foley catheter
[2023-02-15 15:44] LABS: Appearance, Urine Turbid (Clear); Bilirubin, Urine Neg (Neg); Blood, Urine 5+ (Neg); Color, Urine Yellow (P-Yellow); Glucose Qualitative, Urine Neg (Neg); Ketones, Urine Neg (Neg); Leukocyte Esterase, Urine 3+ (Neg); Nitrite, Urine Pos (Neg); Protein, Urine 3+ (Neg); Specific Gravity, Urine 1.015 (1.003-1.022); Urobilinogen, Urine NORM (Normal)
[2023-02-15 16:08] LABS: White Blood Cells, Urine TNTC /hpf (0-5)
[2023-02-15 16:09] LABS: Red Blood Cells, Urine 50-100 /hpf (0-2)
[2023-02-15 16:10] LABS: Bacteria Many /hpf; Squamous Epithelial Cells Few /hpf (Few)
[2023-02-15 16:11] LABS: Renal Epithelial Rare /hpf (0-Rare); Yeast/Fungi Urine Few /hpf
== END ==
LOC: LAB SHORT 14:48 → LAB 14:48
PROVIDERS: Nurse Practitioner Family
DX: N39.0 Urinary tract infection, site not specified (principal)
CPT/HCPCS: 81001; 87077; 87086; 87186

== ENCOUNTER 2023-03-09 11:17 | Inpatient (IN) | payer MEDICARE, BC ==
[~2023-03-09] VITALS: Ht 165.1 cm; Wt 104.3 kg
[~2023-03-09 11:17] MED LIST changes: -NOVOLOG100 UNIT/2 INJ; +NOVOLOG100 UNIT/2 SC; -Oxycodone HCl20 M1 PO
[2023-03-09 12:55] LABS: Hematocrit 30.6 % (37.0-53.0); Hemoglobin 8.8 g/dL (13.5-17.5); Mean Corpuscular HGB 26.3 pg (26.0-34.0); Mean Corpuscular HGB Conc 28.8 g/dL (31.5-36.5); Mean Corpuscular Volume 91 fL (80-100); Mean Platelet Volume 8.8 fL (9.1-12.4); Platelet Count 474 K/mm3 (150-400); RDW Coefficient Variation 16.3 % (11.7-14.2); RDW Standard Deviation 54.9 fL (35.1-46.3); Red Blood Cell Count 3.35 M/mm3 (4.30-5.90); White Blood Cell Count 18.38 K/mm3 (4.00-11.30)
[2023-03-09 13:19] LABS: Source, Urine Clean Catch
[2023-03-09 13:31] LABS: BASOPHILS ABSOLUTE MAN 0.18 K/mm3 (0.00-0.23); BASOPHILS PERCENT MAN 1 % (0-2); EOSINOPHILS PERCENT MAN 0 % (0-6); LYMPHOCYTES ABSOLUTE MAN 2.02 K/mm3 (0.84-5.20); LYMPHOCYTES PERCENT MAN 11 % (21-46); MONOCYTES ABSOLUTE MAN 0.36 K/mm3 (0.16-1.47); MONOCYTES PERCENT MAN 2 % (4-13); MYELOCYTE ABSOLUTE MAN 0.36 K/mm3 (0.00-0.00); MYELOCYTE PERCENT MAN 2 % (0-0); NEUTROPHILS ABSOLUTE MAN 15.43 K/mm3 (1.96-9.15); SEG NEUTROPHILS PERCENT MAN 84 % (41-73); TOTAL CELLS COUNTED 100
[2023-03-09 13:33] LABS: Albumin, Blood 2.2 g/dL (3.4-5.0); Albumin/Globulin Ratio 0.5 (0.8-1.8); Bilirubin, Total 0.3 mg/dL (0.1-1.0); Bun/Creatinine Ratio 25.3 (12.0-20.0); Calcium, Blood 8.3 mg/dL (8.5-10.1); Creatinine, Blood 1.54 mg/dL (0.60-1.20); Globulin, Blood 4.6 g/dL (2.2-4.0); Potassium, Blood 6.1 mmol/L (3.5-5.5); Total Protein, Blood 6.8 g/dL (6.4-8.2)
[2023-03-09 13:34] LABS: Appearance, Urine Cloudy (Clear); Bilirubin, Urine Neg (Neg); Blood, Urine 3+ (Neg); Glucose Qualitative, Urine Neg (Neg); Ketones, Urine Neg (Neg); Leukocyte Esterase, Urine 3+ (Neg); Nitrite, Urine Neg (Neg); Protein, Urine 3+ (Neg); Urobilinogen, Urine NORM (Normal); pH, Urine 6.5 (5.0-8.0)
[2023-03-09 13:38] LABS: Color, Urine Pale Yellow (P-Yellow)
[2023-03-09 13:39] LABS: Red Blood Cells, Urine TNTC /hpf (0-2); White Blood Cells, Urine TNTC /hpf (0-5)
[2023-03-09 13:41] LABS: Bacteria Many /hpf; Squamous Epithelial Cells Few /hpf (Few); Transitional Epithelial Cells Rare /hpf (0-Rare)
[2023-03-09 20:43] VITALS: BP 124/46
[2023-03-09] MEDS ORDERED: [UNRECOGNIZED DRUG - OTHER] PO (21:41)
[2023-03-10 05:50] VITALS: BP 101/41
[2023-03-10 05:57] LABS: Hematocrit 26.9 % (37.0-53.0); Hemoglobin 7.7 g/dL (13.5-17.5); Mean Corpuscular HGB 26.5 pg (26.0-34.0); Mean Corpuscular HGB Conc 28.6 g/dL (31.5-36.5); Mean Corpuscular Volume 92 fL (80-100); Mean Platelet Volume 9.1 fL (9.1-12.4); Platelet Count 383 K/mm3 (150-400); RDW Coefficient Variation 16.3 % (11.7-14.2); RDW Standard Deviation 55.8 fL (35.1-46.3); Red Blood Cell Count 2.91 M/mm3 (4.30-5.90); White Blood Cell Count 28.74 K/mm3 (4.00-11.30)
[2023-03-10 06:40] LABS: Albumin, Blood 1.8 g/dL (3.4-5.0); Anion Gap 4 mmol/L (6-16); Blood Urea Nitrogen 49 mg/dL (8-24); Bun/Creatinine Ratio 23.4 (12.0-20.0); CO2, Blood 28 mmol/L (21-32); Calcium, Blood 7.9 mg/dL (8.5-10.1); Chloride, Blood 109 mmol/L (98-108); Creatinine, Blood 2.09 mg/dL (0.60-1.20); Glomerular Filtration Rate 34 (60-); Glucose, Blood 106 mg/dL (70-99); Magnesium, Blood 2.5 mg/dL (1.6-2.4); Potassium, Blood 5.7 mmol/L (3.5-5.5); Sodium, Blood 141 mmol/L (136-145)
--- NOTE | 2023-03-10 07:38 | NUR ---
SHIFT SUMMERY. PT RESTING IN BED TRYING TO SLEEP AT THIS TIME. PT VERY SLEEPY AND WEAK. PT ARRIVEED AND WAS TRANSFRED BY 6 STAFF. SRIDEVI LIFT SHEET PLACED UNDER PT WELL PADS. PT VERY WET FROM WOUNDS WEAPING. PT MEDICTED WITH HS MEDS AND PAIN MEDS. PT GIVEN SANDWITCH TO EAT, PT HAD NOT EATTEN FOR MANY HRS. LATTER PT HAD XLG BM INOSTOMY AND HAD LEAK ALSO BM BROWN AND SEMI FORMED. URINE WHITE AND THICK TO WEN. PT GIVEN MINI SPONGE BATH AND POWDER FOR YEAST APPLYED. WHEN HELP WAS AVALABLE DRGS APPLYED TO BILAT WOUNDS TO BUTTOCKS AND MORE CLEANING DONE UNDER PADS CHANGED. ORAL CARE DONE AND CHAPSTICK APPLYED. CALL LIGHT IN REACH.
[2023-03-10 07:58] VITALS: BP 157/49
[2023-03-10 10:52] LABS: BAND PERCENT MAN 8 % (0-8); BASOPHILS PERCENT MAN 0 % (0-2); EOSINOPHILS PERCENT MAN 0 % (0-6); LYMPHOCYTES ABSOLUTE MAN 2.29 K/mm3 (0.84-5.20); LYMPHOCYTES PERCENT MAN 8 % (21-46); MONOCYTES ABSOLUTE MAN 1.14 K/mm3 (0.16-1.47); MONOCYTES PERCENT MAN 4 % (4-13); NEUTROPHILS ABSOLUTE MAN 25.29 K/mm3 (1.96-9.15); SEG NEUTROPHILS PERCENT MAN 80 % (41-73); TOTAL CELLS COUNTED 100
[2023-03-10 12:14] LABS: Hematocrit 27.1 % (37.0-53.0); Hemoglobin 7.8 g/dL (13.5-17.5)
[2023-03-10 16:26] VITALS: BP 123/57
--- NOTE | 2023-03-10 17:31 | NUR ---
SHIFT SUMMARY PT A&OX4, VSS, 3L O2 NC, BED BOUND AT BASELINE, TOLERATING PO, VOIDING, NS INFUSING @ 100 MLS/HR, AND PAIN MANGED PER EMAR. WEN CATHETER REPLACED THIS SHIFT DUE TO LEAKAGE, NEW WEN PATENT AND NO LEAKAGE PRESENT. WOUND DRESSINGS CHANGED THIS SHIFT W/ 2 ASSIST AND CONT TO BE C/D/I. PICTURES TAKEN AND PUT IN CHART. NO INSULIN COVERAGE NEEDED THIS SHIFT. CALL LIGHT WITHIN REACH AND PT ABLE TO MAKE NEEDS KNOWN.
[2023-03-10 19:41] VITALS: BP 115/58
[2023-03-11 02:58] VITALS: BP 136/54
--- NOTE | 2023-03-11 03:50 | NUR ---
REPORT RECEIVED VERIFIED PT A/O X 4 VERY PLEASENT AND COOPERATIVE MAN WITH MANY HEALTH ISSUES. GOOD HEALTH HISTORIAN. BED RIDDEN MULTIPLE HIP WOUNDS THAT DRESSING WAS CHANGED ON DAY SHIFT. MEDIORT ACCESSED AND INFUSING, WEN CATH CLOUDY YELLOW WITH SED. PT CALL APPROPRIATELY AND MAKES NEEDS KNOWN.
[2023-03-11 06:15] LABS: Hematocrit 24.3 % (37.0-53.0); Hemoglobin 7.1 g/dL (13.5-17.5); Red Blood Cell Count 2.63 M/mm3 (4.30-5.90); White Blood Cell Count 18.25 K/mm3 (4.00-11.30)
[2023-03-11 06:16] LABS: BASOPHILS ABSOLUTE AUTO 0.07 K/mm3 (0.00-0.23); BASOPHILS PERCENT AUTO 0 % (0-2); EOSINOPHILS ABSOLUTE AUTO 0.47 K/mm3 (0.00-0.68); EOSINOPHILS PERCENT AUTO 3 % (0-6); IMMATURE GRAN ABSOLUTE AUTO 0.21 K/mm3 (0.00-0.10); IMMATURE GRAN PERCENT AUTO 1 % (0-1); LYMPHOCYTES ABSOLUTE AUTO 0.77 K/mm3 (0.84-5.20); LYMPHOCYTES PERCENT AUTO 4 % (21-46); MONOCYTES ABSOLUTE AUTO 0.67 K/mm3 (0.16-1.47); MONOCYTES PERCENT AUTO 4 % (4-13); Mean Corpuscular HGB Conc 29.2 g/dL (31.5-36.5); Mean Corpuscular Volume 92 fL (80-100); Mean Platelet Volume 9.6 fL (9.1-12.4); NEUTROPHILS ABSOLUTE AUTO 16.06 K/mm3 (1.96-9.15); NEUTROPHILS PERCENT AUTO 88 % (41-73); Platelet Count 354 K/mm3 (150-400); RDW Coefficient Variation 16.2 % (11.7-14.2); RDW Standard Deviation 54.8 fL (35.1-46.3)
[2023-03-11 06:44] LABS: Albumin, Blood 1.6 g/dL (3.4-5.0); Anion Gap 5 mmol/L (6-16); Blood Urea Nitrogen 48 mg/dL (8-24); Bun/Creatinine Ratio 28.6 (12.0-20.0); CO2, Blood 26 mmol/L (21-32); Calcium, Blood 7.6 mg/dL (8.5-10.1); Chloride, Blood 109 mmol/L (98-108); Creatinine, Blood 1.68 mg/dL (0.60-1.20); Glomerular Filtration Rate 44 (60-); Glucose, Blood 133 mg/dL (70-99); Magnesium, Blood 2.5 mg/dL (1.6-2.4); Phosphorus, Blood 4.7 mg/dL (2.5-4.9); Potassium, Blood 4.8 mmol/L (3.5-5.5); Sodium, Blood 140 mmol/L (136-145)
[2023-03-11 16:06] VITALS: BP 132/44
--- NOTE | 2023-03-11 16:54 | NUR ---
SHIFT SUMMARY PT AOX4, BR/LIFT PT. MEDICATED FOR PAIN PER THE EMAR. DRESSINGS CHANGED TO BILATERAL BUTTOCK AND R HEEL. BED BATH AND LINEN CHANGE COMPLETED. PT HAS HAD NO C/O CP OR PRESSURE, SOB, OR N/V/D. CATH CARE COMPLETED. WEN DRAINING AND PATENT. MEDIPORT ACCESSED WITH NS @100. PT'S FAMILY FRIEND, A FORMER NURSE AT THIS FACILITY, VISITED TODAY AND PROVIDED FURTHER INSIGHT INTO PT'S ROUTINE AT HOME. POSSIBLE DISCHARGE TOMORROW, PENDING LABS AND THE PT'S STATUS. CALL LIGHT WITHIN REACH, BED IN THE LOWEST POSITION. WILL REPORT TO ONCOMING NURSE.
[2023-03-11 20:07] VITALS: BP 153/51
[2023-03-12 04:07] VITALS: BP 161/46
--- NOTE | 2023-03-12 04:19 | NUR ---
1900: ASSUMED CARE OF PT, BEDSIDE REPORT RECEIVED FROM DAY SHIFT RN. PT IS LAYING IN BED WITH HOB ELEVATED. A/OX4, ABLE TO MAKE NEEDS KNOWN. DRESSING CHANGE TO PORT A CATH USING STERILE TECHNIQUE, PT TOLERATED WELL. FLUIDS INFUSING PER ORDERS. VSS, MEDICATION PROVIDED PER ORDERS. PT IS ON AN AIR BED, ASSISTED IN BED FOR COMFORT DURING THE NIGHT. OSTOMY DRAINING SMALL AMOUNTS OF SOFT STOOL. INDWELLING CATHETER DRAINING YELLOW URINE WITH SEDIMENT. NO ACUTE EVENTS DURING THE NIGHT. SAFETY MEASURES TAKEN, ALL NEEDS ADDRESSED.
[2023-03-12 05:38] LABS: BASOPHILS ABSOLUTE AUTO 0.05 K/mm3 (0.00-0.23); BASOPHILS PERCENT AUTO 0 % (0-2); EOSINOPHILS ABSOLUTE AUTO 0.51 K/mm3 (0.00-0.68); EOSINOPHILS PERCENT AUTO 4 % (0-6); Hematocrit 24.5 % (37.0-53.0); Hemoglobin 7.1 g/dL (13.5-17.5); IMMATURE GRAN ABSOLUTE AUTO 0.19 K/mm3 (0.00-0.10); IMMATURE GRAN PERCENT AUTO 2 % (0-1); LYMPHOCYTES ABSOLUTE AUTO 0.88 K/mm3 (0.84-5.20); LYMPHOCYTES PERCENT AUTO 8 % (21-46); MONOCYTES ABSOLUTE AUTO 0.51 K/mm3 (0.16-1.47); MONOCYTES PERCENT AUTO 4 % (4-13); Mean Corpuscular HGB 26.5 pg (26.0-34.0); Mean Corpuscular Volume 91 fL (80-100); Mean Platelet Volume 9.4 fL (9.1-12.4); NEUTROPHILS ABSOLUTE AUTO 9.33 K/mm3 (1.96-9.15); NEUTROPHILS PERCENT AUTO 81 % (41-73); Platelet Count 355 K/mm3 (150-400); RDW Coefficient Variation 16.2 % (11.7-14.2); RDW Standard Deviation 54.5 fL (35.1-46.3); Red Blood Cell Count 2.68 M/mm3 (4.30-5.90); White Blood Cell Count 11.47 K/mm3 (4.00-11.30)
--- NOTE | 2023-03-12 05:39 | NUR ---
LABS DRAWN FROM PORT A CATH WITHOUT DIFFICULTY, PER PROTOCOL. FLUIDS RESTARTED. PT TOLERATED WELL. BLOOD SENT TO LAB.
[2023-03-12 06:05] LABS: Albumin, Blood 1.5 g/dL (3.4-5.0); Albumin/Globulin Ratio 0.4 (0.8-1.8); Bilirubin, Total 0.1 mg/dL (0.1-1.0); Bun/Creatinine Ratio 26.8 (12.0-20.0); Calcium, Blood 7.7 mg/dL (8.5-10.1); Creatinine, Blood 1.53 mg/dL (0.60-1.20); Globulin, Blood 4.2 g/dL (2.2-4.0); Potassium, Blood 5.1 mmol/L (3.5-5.5); Total Protein, Blood 5.7 g/dL (6.4-8.2)
[2023-03-12 07:42] VITALS: BP 142/62
--- NOTE | 2023-03-12 08:05 | NUR ---
Verbal consent to allow this nursing admin to provide and assist in care.
[2023-03-12 15:14] LABS: Bun/Creatinine Ratio 27.5 (12.0-20.0); Calcium, Blood 7.8 mg/dL (8.5-10.1); Creatinine, Blood 1.31 mg/dL (0.60-1.20); Potassium, Blood 5.1 mmol/L (3.5-5.5)
[2023-03-12 15:55] VITALS: BP 166/60
--- NOTE | 2023-03-12 17:36 | NUR ---
PT AOX4 AND COOPERATIVE OF CARE. PT IS BED BOUND AND IS A LIFT PT. PT HAS BEEN TREATED FOR PAIN PER EMAR. PT DOES WELL TRYING TO TURN AND IS A TWO PERSON TO CHANGE AND DO WOUND CARE. THIS ACCOUNTS CLERK CHANGED TO TWO WOUNDS ON PT'S COCCYX AREA. PT NEEDS REPOSTIONING EVERY COUPLE HOURS. PT STATES HE JUST DOES NOT FEEL LIKE HIMSELF. CALL LIGHT IS WITHIN REACH WILL CONTINUE TO MONITOR.
[2023-03-12 19:40] VITALS: BP 155/68
[2023-03-13 03:25] VITALS: BP 158/55
--- NOTE | 2023-03-13 05:02 | NUR ---
SHIFT SUMMARY. PATIENT IS A 67 YEAR OLD MALE IN WITH SEPSIS. PATIENT IS BEDREST. PATIENT CALLS APPROPRIATELY AND IS ABLE TO MAKE HIS NEEDS KNOWN. PATIENT UPSET AT BEGINNING OF SHIFT-PATIENT NEEDED AN IV FOR IMAGING AND HE HAD NOT EATEN ALL DAY, PATIENT DID NOT WANT TO WAIT FOR SOMEONE TO PUT AN IV IN D/T HAVING DIFFICULTY OBTAINING A PERIPHERAL IV-PATIENT USES HIS MEDIPORT FOR THIS REASON. UNABLE TO GET A LINE AT THIE TIME. PATIENT ATE DINNER AND NPO AT MIDNIGHT FOR IMAGING W/CONTRAST ON 03/13/23. PCU CHARGE NURSE ABLE TO PUT LINE IN FOR PATIENT FOR IMAGING. PATIENT SLEPT WELL T/O NIGHT WITH RESPIRATIONS EQUAL AND UNLABORED. NO EVENTS THIS SHIFT. BED IS LOCKED IN LOWEST POSITION WITH CALL LIGHT IN REACH. NO S/S OF DISTRESS NOTED. CARE IS ONGOING.
[2023-03-13 05:42] LABS: BASOPHILS ABSOLUTE AUTO 0.05 K/mm3 (0.00-0.23); BASOPHILS PERCENT AUTO 1 % (0-2); EOSINOPHILS ABSOLUTE AUTO 0.53 K/mm3 (0.00-0.68); EOSINOPHILS PERCENT AUTO 7 % (0-6); Hematocrit 26.4 % (37.0-53.0); Hemoglobin 7.7 g/dL (13.5-17.5); IMMATURE GRAN ABSOLUTE AUTO 0.34 K/mm3 (0.00-0.10); IMMATURE GRAN PERCENT AUTO 4 % (0-1); LYMPHOCYTES ABSOLUTE AUTO 0.92 K/mm3 (0.84-5.20); LYMPHOCYTES PERCENT AUTO 12 % (21-46); MONOCYTES ABSOLUTE AUTO 0.49 K/mm3 (0.16-1.47); MONOCYTES PERCENT AUTO 6 % (4-13); Mean Corpuscular HGB 26.6 pg (26.0-34.0); Mean Corpuscular HGB Conc 29.2 g/dL (31.5-36.5); Mean Corpuscular Volume 91 fL (80-100); Mean Platelet Volume 8.9 fL (9.1-12.4); NEUTROPHILS ABSOLUTE AUTO 5.41 K/mm3 (1.96-9.15); NEUTROPHILS PERCENT AUTO 70 % (41-73); Platelet Count 354 K/mm3 (150-400); RDW Coefficient Variation 16.1 % (11.7-14.2); RDW Standard Deviation 53.3 fL (35.1-46.3); White Blood Cell Count 7.74 K/mm3 (4.00-11.30)
[2023-03-13 06:18] LABS: Albumin, Blood 1.6 g/dL (3.4-5.0); Albumin/Globulin Ratio 0.4 (0.8-1.8); Bilirubin, Total 0.2 mg/dL (0.1-1.0); Bun/Creatinine Ratio 33.9 (12.0-20.0); Creatinine, Blood 1.12 mg/dL (0.60-1.20); Potassium, Blood 5.4 mmol/L (3.5-5.5); Total Protein, Blood 5.6 g/dL (6.4-8.2)
[2023-03-13 08:08] VITALS: BP 150/65
[2023-03-13 16:10] VITALS: BP 169/69
--- NOTE | 2023-03-13 18:11 | NUR ---
DAYSHIFT SUMMARY Patient alert & oriented x4. PRN pain medications given for chronic pain. HANH RN & MDs at bedside to assess chronic wounds. Wound pictures documented. Min leaking, placed new 18F min catheter. IV ABX administred. Ros WNL. Will continue plan of care.
[2023-03-13 19:47] VITALS: BP 179/60
[2023-03-14 04:42] VITALS: BP 150/64
--- NOTE | 2023-03-14 05:34 | NUR ---
REPORT RECEIVED VERIFIED PT A/L BUT CROCKETT, PT STATES HE WAS ON HIS BACK TOO LONG. PT LUNG SOUND WET AND CROCKETT, PT ASKED FOR SINGULAIR WHICH I RECEIVED FROM HOSPITALIST. PT DOING MUCH BETTER JUST WANTS TO SLEEP AND TAKE PAIN MEDS WILL CONT TO MONITOR. MEDIPORT DRAWS AND FLUSHES WELL STILL
[2023-03-14 05:54] LABS: Hematocrit 25.8 % (37.0-53.0); Hemoglobin 7.6 g/dL (13.5-17.5); Mean Corpuscular HGB 26.3 pg (26.0-34.0); Mean Corpuscular HGB Conc 29.5 g/dL (31.5-36.5); Mean Corpuscular Volume 89 fL (80-100); Platelet Count 355 K/mm3 (150-400); RDW Coefficient Variation 15.8 % (11.7-14.2); RDW Standard Deviation 51.9 fL (35.1-46.3); Red Blood Cell Count 2.89 M/mm3 (4.30-5.90); White Blood Cell Count 8.33 K/mm3 (4.00-11.30)
[2023-03-14 06:32] LABS: Calcium, Blood 8.4 mg/dL (8.5-10.1); Creatinine, Blood 1.06 mg/dL (0.60-1.20); Potassium, Blood 5.4 mmol/L (3.5-5.5)
[2023-03-14 06:37] LABS: BAND PERCENT MAN 7 % (0-8); BASOPHILS PERCENT MAN 0 % (0-2); EOSINOPHILS ABSOLUTE MAN 0.49 K/mm3 (0.00-0.68); EOSINOPHILS PERCENT MAN 6 % (0-6); LYMPHOCYTES ABSOLUTE MAN 0.99 K/mm3 (0.84-5.20); LYMPHOCYTES PERCENT MAN 12 % (21-46); MONOCYTES ABSOLUTE MAN 0.83 K/mm3 (0.16-1.47); MONOCYTES PERCENT MAN 10 % (4-13); MYELOCYTE ABSOLUTE MAN 0.33 K/mm3 (0.00-0.00); MYELOCYTE PERCENT MAN 4 % (0-0); NEUTROPHILS ABSOLUTE MAN 5.66 K/mm3 (1.96-9.15); SEG NEUTROPHILS PERCENT MAN 61 % (41-73); TOTAL CELLS COUNTED 100
[2023-03-14 07:18] VITALS: BP 158/49
[2023-03-14 15:29] VITALS: BP 164/62
--- NOTE | 2023-03-14 15:50 | NUR ---
SHIFT SUMMARY; PATIENT HAS 18FR WEN CATH WITH 30CC BALLOON PLACED BY THIS RN USING STERILE TECHNIQUE. HE TOLERATED WELL. [facility] HE IS TO BE NPO AT MIDNIGHT TONIGHT FOR PROCEDURE TOMORROW. [facility] WOUND CARE DID CHANGE HIS DRESSINGS AND TAKE PICTURES FOR WOUND CARE. NO NEW PLANS FOR PATIENT OTHER THAN DEBRIDEMENT IN AM. WILL CONTINUE TO MONITOR THIS PATIENT CLOSELY UNTIL REPORT AND HAND OFF AT SHIFT CHANGE.
[2023-03-14 19:41] VITALS: BP 149/61
[2023-03-15] VITALS (17 sets, daily range): BP systolic 108–161; BP diastolic 53–86
[2023-03-15 06:36] LABS: Hematocrit 25.8 % (37.0-53.0); Hemoglobin 7.6 g/dL (13.5-17.5); Mean Corpuscular HGB 26.6 pg (26.0-34.0); Mean Corpuscular HGB Conc 29.5 g/dL (31.5-36.5); Mean Corpuscular Volume 90 fL (80-100); Mean Platelet Volume 9.1 fL (9.1-12.4); Platelet Count 353 K/mm3 (150-400); RDW Standard Deviation 52.7 fL (35.1-46.3); Red Blood Cell Count 2.86 M/mm3 (4.30-5.90); White Blood Cell Count 9.02 K/mm3 (4.00-11.30)
--- NOTE | 2023-03-15 06:47 | NUR ---
PT C/O SIGNIFICANT PAIN TODAY TO RIGHT SHOULDER WITH IS CHRONIC TO HIM SO PLAN WAS MADE TO KEEP UP WITH HIS MEDICATION REGIMINE ALSO WEN WAS LEAKING A BIT SO I PULLED ON IT AND IT GAVE ME 2 INCHOF SLACK IN THE BLADDER. HOPEFULLY THIS WILL HELP WITH THE LEAKING. I ENC PT TO TURN BUT STATED HE WAS IN TOO MUCH PAIN, SO I JUST KEPT MEDICATING. PT DOING MUCH BETTER AND IS NOW PAIN FREE TO RIGHT SHOULDER. SX TO COME AND TAKE PT BEFORE 7AM.
[2023-03-15 06:48] LABS: Calcium, Blood 8.2 mg/dL (8.5-10.1); Creatinine, Blood 0.91 mg/dL (0.60-1.20); Potassium, Blood 5.4 mmol/L (3.5-5.5)
--- NOTE | 2023-03-15 06:57 | NUR ---
INTO SDS VIA BED. PT A&OX4-REPORTS 6/10 RIGHT SHOULDER PAIN. PT DENIES SOB. History, Chart, Medications and Allergies reviewed before start of procedure.LUNGS DIMINISHED VS DISTANT T/O-PT DENIES SOB-SATS>90% ON 3 LITERS NASAL CANULA.Patient confirms NPO status and agrees with scheduled surgery.
[2023-03-15 11:37] LABS: BAND PERCENT MAN 4 % (0-8); BASOPHILS PERCENT MAN 0 % (0-2); EOSINOPHILS ABSOLUTE MAN 0.45 K/mm3 (0.00-0.68); EOSINOPHILS PERCENT MAN 5 % (0-6); LYMPHOCYTES ABSOLUTE MAN 0.45 K/mm3 (0.84-5.20); LYMPHOCYTES PERCENT MAN 5 % (21-46); MONOCYTES ABSOLUTE MAN 0.99 K/mm3 (0.16-1.47); MONOCYTES PERCENT MAN 11 % (4-13); MYELOCYTE ABSOLUTE MAN 0.45 K/mm3 (0.00-0.00); MYELOCYTE PERCENT MAN 5 % (0-0); NEUTROPHILS ABSOLUTE MAN 6.67 K/mm3 (1.96-9.15); SEG NEUTROPHILS PERCENT MAN 70 % (41-73); TOTAL CELLS COUNTED 100
--- NOTE | 2023-03-15 19:33 | NUR ---
SHIFT SUMMARY; PATIENT HAD SURGERICAL DEBRIDEMENT OF WOUNDS ON BUTTOCKS TODAY. HE RETURNED FROM SURGERY VERY PAINFULL. WEN CATHETER LEAKED DURING DAY AND BEDDING WAS CHANGED PRIOR TO SHIFT CHANGE AND WOUND DRESSING WERE CHANGED ALSO. TELE DC'D PER . PATIENT DID NOT RECEIVE INSULIN TODAY CHEM BG WERE LOW. DINNER CHEM BG WAS 151 HOWEVER PATIENT NOT EATING MUCH FOR DINNER SO DECISION TO HOLD INSULIN. HAND OFF AT SHIFT CHANGE TO NOC SHIFT RN.
[2023-03-16 06:21] VITALS: BP 147/65
--- NOTE | 2023-03-16 06:42 | NUR ---
PATIENT RECIEVED BANDAGE CHANGE TO BUTTOCKS AT 0030 D/T BEING WET FROM URINE. WHEN BANDAGE REMOVED FROM RIGHT BUTTOCKS WOUND STARTED TO BLEED. PRESSURE HELD AND BULKY BANDAGE APPLIED TO BLEEDING PORTION OF WOUND.
--- NOTE | 2023-03-16 06:44 | NUR ---
SHIFT SUMMARY. PATIENT IS AOX4. PATIENT IS ABLE TO MAKE HIS NEEDS KNOWN. CALLS APPROPRIATELY. PATIENT C/O RIGHT SHOULDER PAIN-MEDICATED PER EMAR. PATIENT ASKED ABOUT WOUND DRESSING CHANGES ONCE HE IS DISCHARGED HOME HE IS NOT SURE HIS WOULD BE ABLE TO DO DRESSING CHANGES TO HIS BUTTOCKS. TALKED WITH PATIENT AND WILL RELAY TO DAYSHIFT PATIENTS CONCERNS. PATIENT IS ABLE TO ASSIST WITH ROLLING FOR POSITION CHANGES. PATIENT HAS DISPOSABLE CHUCKS UNDERNEATH PATIENT HE DOES NOT LIKE TO HAVE A SHEET OR BEDDING ON BED. PATIENT IS COOPERATIVE WITH CARE. TAKES PILLS WHOLE W/WATER. BED IS LOCKED IN THE LOWEST POSITION W/CALL LIGHT IN REACH. NO S/S OF DISTRESS NOTED AT THIS TIME.
[2023-03-16 07:08] LABS: Bun/Creatinine Ratio 32.9 (12.0-20.0); Calcium, Blood 7.4 mg/dL (8.5-10.1); Creatinine, Blood 0.82 mg/dL (0.60-1.20); Potassium, Blood 5.5 mmol/L (3.5-5.5)
[2023-03-16 07:52] VITALS: BP 156/59
--- NOTE | 2023-03-16 09:00 | NUR ---
pt laying in bed awake, watching tv, a/ox4, pleasant and cooperative with care, follows commands well, reports pain at 7/10 mostly in shoulder, scheduled mscontin given will gave prn as soon as can, lungs are course t/o, dim in bases, no cough noted, on 3 liters 02 via n/c, which is his home rate, resp even and unlabored, hrr, has chronic min cath draining yellow urine with sediment, has ostomy to abd, pt takes care of it himself, has extensive wounds to buttocks, will change dressing, he reports had some bleeding last night durring change, will check for that, mediport to c.w. accessed, piv to rfa site is clear and patent, btx3, moves arms without diff. andres, call light in reach.
[2023-03-16] MEDS ORDERED: HUMALOG JU100 UNIT/2 SC (11:50)
[2023-03-16] MEDS ORDERED: METO100ER PO (11:52)
[2023-03-16] MEDS ORDERED: Acetaminophen325 M1 PO (11:59)
[2023-03-16] MEDS ORDERED: JUVEN PACKET1 EAC3 PO (12:00)
[2023-03-16] MEDS ORDERED: MONT10T PO (12:01)
[2023-03-16] MEDS ORDERED: SENN187 PO (12:01)
[2023-03-16] MEDS ORDERED: HIPREX1 G1 PO (12:01)
[2023-03-16] MEDS ORDERED: NARCAN4 M1 (15:13)
--- NOTE | 2023-03-16 15:20 | NUR ---
Pt has been discharged to home, is here and transport, he is in his wheelchair, went over discharge instructions with him, medicated for pain prior to leaving, mediport and piv were removed intact, new medications were faxed to [facility]. left via wheelchair with family in attendence.
== END 2023-03-16 15:36 | disposition home health service (06) | DRG 698 ==
LOC: ER 11:17 → MEDS 15:53
PROVIDERS: Family Medicine; Hospitalist; Student in an Organized Health Care Education/Training Program; Surgery; ADMIT Internal Medicine
PROC: 3E03329 Introduction of Other Anti-infective into Peripheral Vein, Percutaneous Approach (ICD-10-PCS; 2023-03-09)
PROC: 0HD6XZZ Extraction of Back Skin, External Approach (ICD-10-PCS; principal; 2023-03-15 07:30)
DX: T83.511A Infection and inflammatory reaction due to indwelling urethral catheter, initial encounter (principal); A41.9 Sepsis, unspecified organism; J96.11 Chronic respiratory failure with hypoxia; N17.9 Acute kidney failure, unspecified; G82.20 Paraplegia, unspecified; E11.22 Type 2 diabetes mellitus with diabetic chronic kidney disease; N18.9 Chronic kidney disease, unspecified; E87.5 Hyperkalemia; G47.33 Obstructive sleep apnea (adult) (pediatric); L89.150 Pressure ulcer of sacral region, unstageable; S24.103S Unspecified injury at T7-T10 level of thoracic spinal cord, sequela; N39.0 Urinary tract infection, site not specified; N31.9 Neuromuscular dysfunction of bladder, unspecified; E66.01 Morbid (severe) obesity due to excess calories; D50.9 Iron deficiency anemia, unspecified; I48.0 Paroxysmal atrial fibrillation; Z99.81 Dependence on supplemental oxygen; Z79.4 Long term (current) use of insulin
CPT/HCPCS: 36415; 74177; 80048; 80053; 80069; 81001; 82607; 82728; 82746; 82947; 83540; 83550; 83605; 83735; 85014; 85018; 85025; 85651; 87040; 87077; 87086; 87186; 93005; 93010; 94760; 96365; 96367; 96375; 99285-25; A9270; J0692; J0713; J1170; J1642; J1644; J1815; J2185; J2371; J2405; J2704; J2916; J3010; J7030; J7120; Q9967

== ENCOUNTER 2023-03-19 19:53 | Inpatient (IN) | payer MEDICARE, BC ==
[~2023-03-19] VITALS: Ht 177.8 cm; Wt 189.0 kg
[~2023-03-19 19:53] MED LIST changes: +Acetaminophen325 M1 PO; +HUMALOG JU100 UNIT/2 SC; +MONT10T PO; +[UNRECOGNIZED DRUG - OTHER] PO
[2023-03-19 20:15] LABS: Source, Urine Foley catheter
[2023-03-19 20:22] LABS: Appearance, Urine Turbid (Clear); Bilirubin, Urine Neg (Neg); Blood, Urine 5+ (Neg); Color, Urine Yellow (P-Yellow); Glucose Qualitative, Urine Neg (Neg); Ketones, Urine Neg (Neg); Leukocyte Esterase, Urine 3+ (Neg); Nitrite, Urine Neg (Neg); Protein, Urine 3+ (Neg); Specific Gravity, Urine 1.015 (1.003-1.022); Urobilinogen, Urine NORM (Normal)
[2023-03-19 20:29] LABS: Bacteria Many /hpf; White Blood Cells, Urine TNTC /hpf (0-5); Yeast/Fungi Urine Few /hpf
[2023-03-19 20:30] LABS: Squamous Epithelial Cells Rare /hpf (Few)
[2023-03-19 20:36] LABS: BASOPHILS ABSOLUTE AUTO 0.08 K/mm3 (0.00-0.23); BASOPHILS PERCENT AUTO 1 % (0-2); EOSINOPHILS ABSOLUTE AUTO 0.46 K/mm3 (0.00-0.68); EOSINOPHILS PERCENT AUTO 3 % (0-6); Hematocrit 24.5 % (37.0-53.0); Hemoglobin 7.2 g/dL (13.5-17.5); IMMATURE GRAN PERCENT AUTO 7 % (0-1); LYMPHOCYTES ABSOLUTE AUTO 1.45 K/mm3 (0.84-5.20); LYMPHOCYTES PERCENT AUTO 11 % (21-46); MONOCYTES ABSOLUTE AUTO 0.68 K/mm3 (0.16-1.47); MONOCYTES PERCENT AUTO 5 % (4-13); Mean Corpuscular HGB 26.8 pg (26.0-34.0); Mean Corpuscular HGB Conc 29.4 g/dL (31.5-36.5); Mean Corpuscular Volume 91 fL (80-100); NEUTROPHILS ABSOLUTE AUTO 10.18 K/mm3 (1.96-9.15); NEUTROPHILS PERCENT AUTO 74 % (41-73); Platelet Count 482 K/mm3 (150-400); RDW Standard Deviation 53.1 fL (35.1-46.3); Red Blood Cell Count 2.69 M/mm3 (4.30-5.90); White Blood Cell Count 13.85 K/mm3 (4.00-11.30)
[2023-03-19 21:00] LABS: Albumin, Blood 1.9 g/dL (3.4-5.0); Albumin/Globulin Ratio 0.5 (0.8-1.8); Bilirubin, Total 0.2 mg/dL (0.1-1.0); Bun/Creatinine Ratio 30.1 (12.0-20.0); Calcium, Blood 7.8 mg/dL (8.5-10.1); Creatinine, Blood 1.96 mg/dL (0.60-1.20); Globulin, Blood 4.2 g/dL (2.2-4.0); Potassium, Blood 7.5 mmol/L (3.5-5.5); Total Protein, Blood 6.1 g/dL (6.4-8.2)
[2023-03-19 21:33] LABS: Magnesium, Blood 2.1 mg/dL (1.6-2.4)
[2023-03-19 23:45] LABS: Calcium, Ionized (POC) 1.14 mmol/L (1.10-1.46); Chloride (POC) 107 mmol/L (98-108); Creatinine (POC) 2.2 mg/dL (0.8-1.3); Glucose (ISTAT POC) 182 mg/dL (70-99); Hemoglobin (POC) 7.1 g/dL (13.5-17.5); Potassium (POC) 6.5 mmol/L (3.5-5.5); Sodium (POC) 137 mmol/L (135-148); Total CO2 (POC) 26 mmol/L (21-32)
[2023-03-20] VITALS (7 sets, daily range): BP systolic 127–160; BP diastolic 49–60
[2023-03-20 04:01] LABS: Hematocrit 24.9 % (37.0-53.0); Hemoglobin 7.1 g/dL (13.5-17.5); Mean Corpuscular HGB 26.2 pg (26.0-34.0); Mean Corpuscular HGB Conc 28.5 g/dL (31.5-36.5); Mean Corpuscular Volume 92 fL (80-100); Platelet Count 512 K/mm3 (150-400); RDW Standard Deviation 53.4 fL (35.1-46.3); Red Blood Cell Count 2.71 M/mm3 (4.30-5.90); White Blood Cell Count 14.26 K/mm3 (4.00-11.30)
[2023-03-20 04:40] LABS: Albumin, Blood 2.1 g/dL (3.4-5.0); Albumin/Globulin Ratio 0.5 (0.8-1.8); Bilirubin, Total 0.2 mg/dL (0.1-1.0); Bun/Creatinine Ratio 30.8 (12.0-20.0); Calcium, Blood 7.7 mg/dL (8.5-10.1); Creatinine, Blood 1.95 mg/dL (0.60-1.20); Globulin, Blood 4.1 g/dL (2.2-4.0); Potassium, Blood 6.6 mmol/L (3.5-5.5); Total Protein, Blood 6.2 g/dL (6.4-8.2)
[2023-03-20 05:45] LABS: BASOPHILS PERCENT MAN 0 % (0-2); EOSINOPHILS ABSOLUTE MAN 0.42 K/mm3 (0.00-0.68); EOSINOPHILS PERCENT MAN 3 % (0-6); LYMPHOCYTES ABSOLUTE MAN 1.85 K/mm3 (0.84-5.20); LYMPHOCYTES PERCENT MAN 13 % (21-46); METAMYELOCYTE ABSOLUTE MAN 0.14 K/mm3 (0.00-0.00); METAMYELOCYTE PERCENT MAN 1 % (0-0); MONOCYTES ABSOLUTE MAN 1.28 K/mm3 (0.16-1.47); MONOCYTES PERCENT MAN 9 % (4-13); NEUTROPHILS ABSOLUTE MAN 10.55 K/mm3 (1.96-9.15); SEG NEUTROPHILS PERCENT MAN 74 % (41-73); TOTAL CELLS COUNTED 100
[2023-03-20 09:38] LABS: Bun/Creatinine Ratio 31.1 (12.0-20.0); Calcium, Blood 7.7 mg/dL (8.5-10.1); Creatinine, Blood 1.9 mg/dL (0.60-1.20); Potassium, Blood 6.5 mmol/L (3.5-5.5)
[2023-03-20 15:23] LABS: Bun/Creatinine Ratio 29.1 (12.0-20.0); Calcium, Blood 7.3 mg/dL (8.5-10.1); Creatinine, Blood 1.99 mg/dL (0.60-1.20); Potassium, Blood 6.3 mmol/L (3.5-5.5)
[2023-03-20 18:37] LABS: Bun/Creatinine Ratio 29.4 (12.0-20.0); Calcium, Blood 7.4 mg/dL (8.5-10.1); Creatinine, Blood 2.01 mg/dL (0.60-1.20); Potassium, Blood 5.6 mmol/L (3.5-5.5)
[2023-03-21] VITALS (20 sets, daily range): BP systolic 128–181; BP diastolic 44–565
[2023-03-21 03:59] LABS: Hematocrit 23.8 % (37.0-53.0); Hemoglobin 6.9 g/dL (13.5-17.5); Mean Corpuscular HGB 26.7 pg (26.0-34.0); Mean Corpuscular Volume 92 fL (80-100); Mean Platelet Volume 9.1 fL (9.1-12.4); Platelet Count 461 K/mm3 (150-400); RDW Coefficient Variation 16.2 % (11.7-14.2); RDW Standard Deviation 54.9 fL (35.1-46.3); Red Blood Cell Count 2.58 M/mm3 (4.30-5.90); White Blood Cell Count 12.05 K/mm3 (4.00-11.30)
[2023-03-21 04:21] LABS: Bun/Creatinine Ratio 31.7 (12.0-20.0); Calcium, Blood 7.6 mg/dL (8.5-10.1); Creatinine, Blood 2.05 mg/dL (0.60-1.20); Potassium, Blood 5.4 mmol/L (3.5-5.5)
[2023-03-21 04:56] LABS: BASOPHILS ABSOLUTE MAN 0.24 K/mm3 (0.00-0.23); BASOPHILS PERCENT MAN 2 % (0-2); EOSINOPHILS ABSOLUTE MAN 0.24 K/mm3 (0.00-0.68); EOSINOPHILS PERCENT MAN 2 % (0-6); LYMPHOCYTES ABSOLUTE MAN 0.84 K/mm3 (0.84-5.20); LYMPHOCYTES PERCENT MAN 7 % (21-46); METAMYELOCYTE ABSOLUTE MAN 0.24 K/mm3 (0.00-0.00); METAMYELOCYTE PERCENT MAN 2 % (0-0); MONOCYTES ABSOLUTE MAN 0.72 K/mm3 (0.16-1.47); MONOCYTES PERCENT MAN 6 % (4-13); MYELOCYTE ABSOLUTE MAN 0.36 K/mm3 (0.00-0.00); MYELOCYTE PERCENT MAN 3 % (0-0); NEUTROPHILS ABSOLUTE MAN 9.39 K/mm3 (1.96-9.15); SEG NEUTROPHILS PERCENT MAN 78 % (41-73); TOTAL CELLS COUNTED 100
[2023-03-21 15:36] LABS: Hematocrit 24.7 % (37.0-53.0); Hemoglobin 7.2 g/dL (13.5-17.5)
[2023-03-21 15:53] LABS: Bun/Creatinine Ratio 32.5 (12.0-20.0); Calcium, Blood 7.5 mg/dL (8.5-10.1); Creatinine, Blood 2.06 mg/dL (0.60-1.20); Potassium, Blood 5.2 mmol/L (3.5-5.5)
[2023-03-22] VITALS (12 sets, daily range): BP systolic 117–168; BP diastolic 45–70
[2023-03-22 04:51] LABS: Hematocrit 22.4 % (37.0-53.0); Hemoglobin 6.6 g/dL (13.5-17.5); Mean Corpuscular HGB 26.7 pg (26.0-34.0); Mean Corpuscular HGB Conc 29.5 g/dL (31.5-36.5); Mean Corpuscular Volume 91 fL (80-100); Mean Platelet Volume 9.2 fL (9.1-12.4); Platelet Count 424 K/mm3 (150-400); RDW Coefficient Variation 15.9 % (11.7-14.2); RDW Standard Deviation 52.9 fL (35.1-46.3); Red Blood Cell Count 2.47 M/mm3 (4.30-5.90); White Blood Cell Count 10.54 K/mm3 (4.00-11.30)
[2023-03-22 05:09] LABS: Calcium, Blood 7.6 mg/dL (8.5-10.1); Potassium, Blood 4.9 mmol/L (3.5-5.5)
[2023-03-22 05:19] LABS: BAND PERCENT MAN 1 % (0-8); BASOPHILS PERCENT MAN 1 % (0-2); EOSINOPHILS ABSOLUTE MAN 0.63 K/mm3 (0.00-0.68); EOSINOPHILS PERCENT MAN 6 % (0-6); LYMPHOCYTES ABSOLUTE MAN 1.05 K/mm3 (0.84-5.20); LYMPHOCYTES PERCENT MAN 10 % (21-46); METAMYELOCYTE PERCENT MAN 1 % (0-0); MONOCYTES ABSOLUTE MAN 0.52 K/mm3 (0.16-1.47); MONOCYTES PERCENT MAN 5 % (4-13); NEUTROPHILS ABSOLUTE MAN 8.11 K/mm3 (1.96-9.15); SEG NEUTROPHILS PERCENT MAN 76 % (41-73); TOTAL CELLS COUNTED 100
[2023-03-22 14:47] LABS: Hematocrit 27.3 % (37.0-53.0); Hemoglobin 8.3 g/dL (13.5-17.5)
[2023-03-22 15:04] LABS: Albumin, Blood 1.7 g/dL (3.4-5.0); Anion Gap 2 mmol/L (6-16); Blood Urea Nitrogen 67 mg/dL (8-24); CO2, Blood 30 mmol/L (21-32); Calcium, Blood 7.7 mg/dL (8.5-10.1); Chloride, Blood 112 mmol/L (98-108); Creatinine, Blood 1.97 mg/dL (0.60-1.20); Glomerular Filtration Rate 36 (60-); Glucose, Blood 172 mg/dL (70-99); Phosphorus, Blood 4.6 mg/dL (2.5-4.9); Potassium, Blood 4.8 mmol/L (3.5-5.5); Sodium, Blood 144 mmol/L (136-145)
[2023-03-23] VITALS (7 sets, daily range): BP systolic 158–184; BP diastolic 57–78
[2023-03-23 04:27] LABS: BASOPHILS PERCENT AUTO 1 % (0-2); EOSINOPHILS PERCENT AUTO 7 % (0-6); Hemoglobin 8.5 g/dL (13.5-17.5); IMMATURE GRAN PERCENT AUTO 4 % (0-1); LYMPHOCYTES ABSOLUTE AUTO 1.55 K/mm3 (0.84-5.20); LYMPHOCYTES PERCENT AUTO 12 % (21-46); MONOCYTES ABSOLUTE AUTO 0.94 K/mm3 (0.16-1.47); MONOCYTES PERCENT AUTO 7 % (4-13); Mean Corpuscular HGB 27.3 pg (26.0-34.0); Mean Corpuscular HGB Conc 30.4 g/dL (31.5-36.5); Mean Corpuscular Volume 90 fL (80-100); NEUTROPHILS ABSOLUTE AUTO 8.83 K/mm3 (1.96-9.15); NEUTROPHILS PERCENT AUTO 69 % (41-73); RDW Coefficient Variation 15.9 % (11.7-14.2); RDW Standard Deviation 52.3 fL (35.1-46.3); Red Blood Cell Count 3.11 M/mm3 (4.30-5.90); White Blood Cell Count 12.82 K/mm3 (4.00-11.30)
[2023-03-23 04:28] LABS: Mean Platelet Volume 9.4 fL (9.1-12.4); Platelet Count 513 K/mm3 (150-400)
[2023-03-23 04:31] LABS: Bun/Creatinine Ratio 34.3 (12.0-20.0); Calcium, Blood 7.9 mg/dL (8.5-10.1); Creatinine, Blood 1.75 mg/dL (0.60-1.20); Potassium, Blood 4.9 mmol/L (3.5-5.5)
[2023-03-24 00:05] VITALS: BP 182/76
[2023-03-24 04:29] VITALS: BP 163/59
[2023-03-24 04:52] LABS: BASOPHILS ABSOLUTE AUTO 0.08 K/mm3 (0.00-0.23); BASOPHILS PERCENT AUTO 1 % (0-2); EOSINOPHILS ABSOLUTE AUTO 0.69 K/mm3 (0.00-0.68); EOSINOPHILS PERCENT AUTO 6 % (0-6); Hemoglobin 8.2 g/dL (13.5-17.5); IMMATURE GRAN ABSOLUTE AUTO 0.38 K/mm3 (0.00-0.10); IMMATURE GRAN PERCENT AUTO 3 % (0-1); LYMPHOCYTES PERCENT AUTO 12 % (21-46); MONOCYTES ABSOLUTE AUTO 0.83 K/mm3 (0.16-1.47); MONOCYTES PERCENT AUTO 7 % (4-13); Mean Corpuscular HGB 27.2 pg (26.0-34.0); Mean Corpuscular HGB Conc 30.4 g/dL (31.5-36.5); Mean Corpuscular Volume 90 fL (80-100); Mean Platelet Volume 8.9 fL (9.1-12.4); NEUTROPHILS ABSOLUTE AUTO 8.48 K/mm3 (1.96-9.15); NEUTROPHILS PERCENT AUTO 72 % (41-73); Platelet Count 438 K/mm3 (150-400); RDW Coefficient Variation 15.6 % (11.7-14.2); RDW Standard Deviation 51.4 fL (35.1-46.3); Red Blood Cell Count 3.01 M/mm3 (4.30-5.90); White Blood Cell Count 11.86 K/mm3 (4.00-11.30)
[2023-03-24 05:09] LABS: Albumin, Blood 1.7 g/dL (3.4-5.0); Anion Gap 3 mmol/L (6-16); Blood Urea Nitrogen 52 mg/dL (8-24); Bun/Creatinine Ratio 36.6 (12.0-20.0); CO2, Blood 29 mmol/L (21-32); Calcium, Blood 7.8 mg/dL (8.5-10.1); Chloride, Blood 111 mmol/L (98-108); Creatinine, Blood 1.42 mg/dL (0.60-1.20); Glomerular Filtration Rate 53 (60-); Glucose, Blood 139 mg/dL (70-99); Iron Serum 19 ug/dL (65-175); Percent Saturation 14.2 % (20.0-50.0); Phosphorus, Blood 3.7 mg/dL (2.5-4.9); Potassium, Blood 4.7 mmol/L (3.5-5.5); Sodium, Blood 143 mmol/L (136-145); Total Iron Binding Capacity 134 ug/dL (250-450)
[2023-03-24 07:41] VITALS: BP 163/71
[2023-03-24 12:25] VITALS: BP 158/65
[2023-03-24 16:33] VITALS: BP 148/64; BP 170/72
[2023-03-24 20:13] VITALS: BP 170/63
[2023-03-25 04:33] VITALS: BP 153/47
[2023-03-25 04:53] LABS: Hematocrit 27.9 % (37.0-53.0); Hemoglobin 8.3 g/dL (13.5-17.5); Mean Corpuscular HGB 26.9 pg (26.0-34.0); Mean Corpuscular HGB Conc 29.7 g/dL (31.5-36.5); Mean Corpuscular Volume 90 fL (80-100); Mean Platelet Volume 8.8 fL (9.1-12.4); Platelet Count 422 K/mm3 (150-400); RDW Coefficient Variation 15.4 % (11.7-14.2); RDW Standard Deviation 50.7 fL (35.1-46.3); Red Blood Cell Count 3.09 M/mm3 (4.30-5.90); White Blood Cell Count 10.91 K/mm3 (4.00-11.30)
[2023-03-25 05:10] LABS: Albumin, Blood 1.7 g/dL (3.4-5.0); Anion Gap 1 mmol/L (6-16); Blood Urea Nitrogen 50 mg/dL (8-24); Bun/Creatinine Ratio 34.7 (12.0-20.0); CO2, Blood 32 mmol/L (21-32); Calcium, Blood 8.3 mg/dL (8.5-10.1); Chloride, Blood 110 mmol/L (98-108); Creatinine, Blood 1.44 mg/dL (0.60-1.20); Glomerular Filtration Rate 53 (60-); Glucose, Blood 143 mg/dL (70-99); Phosphorus, Blood 3.6 mg/dL (2.5-4.9); Potassium, Blood 4.9 mmol/L (3.5-5.5); Sodium, Blood 143 mmol/L (136-145)
[2023-03-25 05:43] LABS: BAND PERCENT MAN 1 % (0-8); BASOPHILS PERCENT MAN 0 % (0-2); EOSINOPHILS ABSOLUTE MAN 0.43 K/mm3 (0.00-0.68); EOSINOPHILS PERCENT MAN 4 % (0-6); LYMPHOCYTES ABSOLUTE MAN 2.18 K/mm3 (0.84-5.20); LYMPHOCYTES PERCENT MAN 20 % (21-46); MONOCYTES ABSOLUTE MAN 0.32 K/mm3 (0.16-1.47); MONOCYTES PERCENT MAN 3 % (4-13); NEUTROPHILS ABSOLUTE MAN 7.96 K/mm3 (1.96-9.15); SEG NEUTROPHILS PERCENT MAN 72 % (41-73); TOTAL CELLS COUNTED 100
[2023-03-25 08:02] VITALS: BP 153/61
[2023-03-25 16:11] VITALS: BP 155/58
[2023-03-25 19:41] VITALS: BP 175/76
[2023-03-26 05:10] VITALS: BP 172/68
[2023-03-26 05:19] LABS: BASOPHILS ABSOLUTE AUTO 0.08 K/mm3 (0.00-0.23); BASOPHILS PERCENT AUTO 1 % (0-2); EOSINOPHILS ABSOLUTE AUTO 0.86 K/mm3 (0.00-0.68); EOSINOPHILS PERCENT AUTO 8 % (0-6); Hematocrit 27.7 % (37.0-53.0); Hemoglobin 8.1 g/dL (13.5-17.5); IMMATURE GRAN ABSOLUTE AUTO 0.43 K/mm3 (0.00-0.10); IMMATURE GRAN PERCENT AUTO 4 % (0-1); LYMPHOCYTES ABSOLUTE AUTO 1.64 K/mm3 (0.84-5.20); LYMPHOCYTES PERCENT AUTO 16 % (21-46); MONOCYTES ABSOLUTE AUTO 0.77 K/mm3 (0.16-1.47); MONOCYTES PERCENT AUTO 7 % (4-13); Mean Corpuscular HGB 27.1 pg (26.0-34.0); Mean Corpuscular HGB Conc 29.2 g/dL (31.5-36.5); Mean Corpuscular Volume 93 fL (80-100); Mean Platelet Volume 9.2 fL (9.1-12.4); NEUTROPHILS ABSOLUTE AUTO 6.73 K/mm3 (1.96-9.15); NEUTROPHILS PERCENT AUTO 64 % (41-73); Platelet Count 422 K/mm3 (150-400); RDW Coefficient Variation 15.2 % (11.7-14.2); RDW Standard Deviation 51.8 fL (35.1-46.3); Red Blood Cell Count 2.99 M/mm3 (4.30-5.90); White Blood Cell Count 10.51 K/mm3 (4.00-11.30)
[2023-03-26 05:46] LABS: Albumin, Blood 1.7 g/dL (3.4-5.0); Albumin/Globulin Ratio 0.4 (0.8-1.8); Bilirubin, Total 0.2 mg/dL (0.1-1.0); Bun/Creatinine Ratio 33.8 (12.0-20.0); Calcium, Blood 8.3 mg/dL (8.5-10.1); Creatinine, Blood 1.3 mg/dL (0.60-1.20); Globulin, Blood 4.2 g/dL (2.2-4.0); Phosphorus, Blood 3.7 mg/dL (2.5-4.9); Potassium, Blood 4.7 mmol/L (3.5-5.5); Total Protein, Blood 5.9 g/dL (6.4-8.2)
[2023-03-26 08:06] VITALS: BP 171/74
[2023-03-26 15:32] VITALS: BP 176/73
[2023-03-26 20:12] VITALS: BP 191/73
[2023-03-27 04:35] VITALS: BP 170/77
[2023-03-27 06:56] LABS: BASOPHILS PERCENT AUTO 1 % (0-2); EOSINOPHILS ABSOLUTE AUTO 1.01 K/mm3 (0.00-0.68); EOSINOPHILS PERCENT AUTO 10 % (0-6); Hemoglobin 8.5 g/dL (13.5-17.5); IMMATURE GRAN ABSOLUTE AUTO 0.42 K/mm3 (0.00-0.10); IMMATURE GRAN PERCENT AUTO 4 % (0-1); LYMPHOCYTES ABSOLUTE AUTO 1.39 K/mm3 (0.84-5.20); LYMPHOCYTES PERCENT AUTO 13 % (21-46); MONOCYTES ABSOLUTE AUTO 0.67 K/mm3 (0.16-1.47); MONOCYTES PERCENT AUTO 6 % (4-13); Mean Corpuscular HGB Conc 29.3 g/dL (31.5-36.5); Mean Corpuscular Volume 92 fL (80-100); Mean Platelet Volume 8.7 fL (9.1-12.4); NEUTROPHILS ABSOLUTE AUTO 7.08 K/mm3 (1.96-9.15); NEUTROPHILS PERCENT AUTO 66 % (41-73); Platelet Count 399 K/mm3 (150-400); RDW Coefficient Variation 15.1 % (11.7-14.2); RDW Standard Deviation 50.6 fL (35.1-46.3); Red Blood Cell Count 3.15 M/mm3 (4.30-5.90); White Blood Cell Count 10.67 K/mm3 (4.00-11.30)
[2023-03-27 07:27] LABS: Alanine Aminotransfer (ALT/SGP 10 U/L (12-78); Albumin, Blood 1.8 g/dL (3.4-5.0); Albumin/Globulin Ratio 0.4 (0.8-1.8); Alk Phos 78 U/L (50-136); Anion Gap Unable to Calculate mmol/L (6-16); Aspartate Aminotrans (AST/SGOT 8 U/L (12-37); Bilirubin, Total 0.2 mg/dL (0.1-1.0); Blood Urea Nitrogen 40 mg/dL (8-24); Bun/Creatinine Ratio 38.1 (12.0-20.0); CO2, Blood 34 mmol/L (21-32); Calcium, Blood 8.4 mg/dL (8.5-10.1); Chloride, Blood 109 mmol/L (98-108); Creatinine, Blood 1.05 mg/dL (0.60-1.20); Globulin, Blood 4.3 g/dL (2.2-4.0); Glomerular Filtration Rate 77 (60-); Glucose, Blood 157 mg/dL (70-99); Phosphorus, Blood 3.5 mg/dL (2.5-4.9); Potassium, Blood 4.5 mmol/L (3.5-5.5); Sodium, Blood 142 mmol/L (136-145); Total Protein, Blood 6.1 g/dL (6.4-8.2)
[2023-03-27 07:58] VITALS: BP 164/72
[2023-03-27] MEDS ORDERED: Diflucan100 MG PO (11:29)
[2023-03-27 14:06] VITALS: BP 167/73
== END 2023-03-27 15:48 | disposition home health service (06) | DRG 871 ==
LOC: ER 19:53 → ERHOLD 19:54 → PCU 03-20 00:37 → MEDS 03-25 17:08 → ENPENDDIS 03-27 11:03 → MEDS 03-27 15:48
PROVIDERS: Emergency Medicine; Family Medicine; Hospitalist; Internal Medicine; Student in an Organized Health Care Education/Training Program; ADMIT Internal Medicine
PROC: 3E03329 Introduction of Other Anti-infective into Peripheral Vein, Percutaneous Approach (ICD-10-PCS; principal; 2023-03-20)
PROC: 30233N1 Transfusion of Nonautologous Red Blood Cells into Peripheral Vein, Percutaneous Approach (ICD-10-PCS; 2023-03-21)
DX: A41.9 Sepsis, unspecified organism (principal); J96.21 Acute and chronic respiratory failure with hypoxia; L89.154 Pressure ulcer of sacral region, stage 4; N17.9 Acute kidney failure, unspecified; D84.9 Immunodeficiency, unspecified; G82.20 Paraplegia, unspecified; N13.6 Pyonephrosis; B37.49 Other urogenital candidiasis; Z68.41 Body mass index [BMI] 40.0-44.9, adult; M46.28 Osteomyelitis of vertebra, sacral and sacrococcygeal region; E87.5 Hyperkalemia; D63.1 Anemia in chronic kidney disease; N18.30 Chronic kidney disease, stage 3 unspecified; S24.103S Unspecified injury at T7-T10 level of thoracic spinal cord, sequela; N31.9 Neuromuscular dysfunction of bladder, unspecified; E66.9 Obesity, unspecified; R65.20 Severe sepsis without septic shock; I45.10 Unspecified right bundle-branch block; G47.33 Obstructive sleep apnea (adult) (pediatric); I48.91 Unspecified atrial fibrillation; D50.9 Iron deficiency anemia, unspecified; E11.69 Type 2 diabetes mellitus with other specified complication; I10 Essential (primary) hypertension; I87.2 Venous insufficiency (chronic) (peripheral); E87.71 Transfusion associated circulatory overload; Z88.8 Allergy status to other drugs, medicaments and biological substances; Z88.2 Allergy status to sulfonamides; Z99.81 Dependence on supplemental oxygen; Z88.1 Allergy status to other antibiotic agents; Z79.891 Long term (current) use of opiate analgesic; Z79.4 Long term (current) use of insulin; Z98.1 Arthrodesis status; Z89.612 Acquired absence of left leg above knee; Z96.0 Presence of urogenital implants; Z86.19 Personal history of other infectious and parasitic diseases; Z93.3 Colostomy status
CPT/HCPCS: 36415; 36430; 71045; 76770; 80047; 80048; 80053; 80069; 81001; 82728; 82947; 83540; 83550; 83605; 83735; 84100; 84145; 85014; 85018; 85025; 86850; 86900; 86901; 86923; 87040; 87086; 92610; 93005; 93010; 93306; 94640; 94644; 94664; 94760; 94762; 96361-59; 96365-59; 96367-59; 96375; 96375-59; 96376; 99285-25; A9270; J0360; J0612; J1170; J1642; J1650; J1815; J1940; J2185; J2405; J2916; J3010; J7030; J7050; J7799; P9016; P9047

== ENCOUNTER 2023-04-02 01:38 | Day surgery (SDC) | payer MEDICARE, BC ==
[2023-04-02 15:44] VITALS: BP 154/58
[2023-04-02 16:02] LABS: BASOPHILS ABSOLUTE AUTO 0.12 K/mm3 (0.00-0.23); BASOPHILS PERCENT AUTO 1 % (0-2); EOSINOPHILS PERCENT AUTO 7 % (0-6); Hematocrit 29.2 % (37.0-53.0); Hemoglobin 8.6 g/dL (13.5-17.5); IMMATURE GRAN ABSOLUTE AUTO 0.47 K/mm3 (0.00-0.10); IMMATURE GRAN PERCENT AUTO 4 % (0-1); LYMPHOCYTES ABSOLUTE AUTO 1.94 K/mm3 (0.84-5.20); LYMPHOCYTES PERCENT AUTO 16 % (21-46); MONOCYTES ABSOLUTE AUTO 0.75 K/mm3 (0.16-1.47); MONOCYTES PERCENT AUTO 6 % (4-13); Mean Corpuscular HGB 27.1 pg (26.0-34.0); Mean Corpuscular HGB Conc 29.5 g/dL (31.5-36.5); Mean Corpuscular Volume 92 fL (80-100); Mean Platelet Volume 9.1 fL (9.1-12.4); NEUTROPHILS ABSOLUTE AUTO 8.18 K/mm3 (1.96-9.15); NEUTROPHILS PERCENT AUTO 67 % (41-73); Platelet Count 519 K/mm3 (150-400); RDW Coefficient Variation 15.3 % (11.7-14.2); RDW Standard Deviation 51.3 fL (35.1-46.3); Red Blood Cell Count 3.17 M/mm3 (4.30-5.90); White Blood Cell Count 12.26 K/mm3 (4.00-11.30)
[2023-04-02 16:22] LABS: Ferritin, Serum 1443 ng/mL (26-388); Iron Serum 28 ug/dL (65-175); Percent Saturation 17.4 % (20.0-50.0); Total Iron Binding Capacity 161 ug/dL (250-450)
[2023-04-02 16:23] LABS: Albumin, Blood 2.2 g/dL (3.4-5.0); Anion Gap 0 mmol/L (6-16); Blood Urea Nitrogen 27 mg/dL (8-24); Bun/Creatinine Ratio 27.7 (12.0-20.0); CO2, Blood 34 mmol/L (21-32); Calcium, Blood 8.7 mg/dL (8.5-10.1); Chloride, Blood 104 mmol/L (98-108); Creatinine, Blood 0.97 mg/dL (0.60-1.20); Glomerular Filtration Rate 85 (60-); Glucose, Blood 142 mg/dL (70-99); Phosphorus, Blood 2.8 mg/dL (2.5-4.9); Potassium, Blood 4.3 mmol/L (3.5-5.5); Sodium, Blood 138 mmol/L (136-145)
== END 2023-04-02 15:45 | disposition home or self-care (01) ==
LOC: ATC 01:38
PROVIDERS: Nurse Practitioner Family
DX: E11.22 Type 2 diabetes mellitus with diabetic chronic kidney disease (principal); I12.9 Hypertensive chronic kidney disease with stage 1 through stage 4 chronic kidney disease, or unspecified chronic kidney disease; N18.2 Chronic kidney disease, stage 2 (mild); E11.42 Type 2 diabetes mellitus with diabetic polyneuropathy; D63.8 Anemia in other chronic diseases classified elsewhere; D50.0 Iron deficiency anemia secondary to blood loss (chronic); N17.9 Acute kidney failure, unspecified; G82.21 Paraplegia, complete; Z79.4 Long term (current) use of insulin; Z79.899 Other long term (current) drug therapy; Z88.0 Allergy status to penicillin; Z88.2 Allergy status to sulfonamides; Z88.5 Allergy status to narcotic agent; Z88.8 Allergy status to other drugs, medicaments and biological substances
CPT/HCPCS: 36591; 80069; 82728; 83540; 83550; 85025; J1642

== ENCOUNTER 2023-04-09 02:00 | Day surgery (SDC) | payer MEDICARE, BC ==
[2023-04-09] MEDS ORDERED: Sod Ferric Gluc Complx/Sucrose 125 MG in NS 100 ML IV SCH (06:00)
[2023-04-09 15:07] VITALS: BP 156/53
== END 2023-04-09 16:06 | disposition home or self-care (01) ==
LOC: ATC 02:00
DX: D50.0 Iron deficiency anemia secondary to blood loss (chronic) (principal); G82.21 Paraplegia, complete; E87.5 Hyperkalemia; J96.01 Acute respiratory failure with hypoxia; N13.30 Unspecified hydronephrosis; N17.9 Acute kidney failure, unspecified; I10 Essential (primary) hypertension; E11.9 Type 2 diabetes mellitus without complications; Z88.2 Allergy status to sulfonamides; Z88.5 Allergy status to narcotic agent; Z88.8 Allergy status to other drugs, medicaments and biological substances; Z79.899 Other long term (current) drug therapy; Z79.4 Long term (current) use of insulin
CPT/HCPCS: 96365; J1642; J2916

== ENCOUNTER 2023-04-16 03:25 | Day surgery (SDC) | payer MEDICARE, BC ==
[2023-04-16] MEDS ORDERED: Sod Ferric Gluc Complx/Sucrose 125 MG in NS 100 ML IV SCH (06:00)
[2023-04-16 13:36] VITALS: BP 177/68
== END 2023-04-16 14:35 | disposition home or self-care (01) ==
LOC: ATC 03:25
DX: D50.0 Iron deficiency anemia secondary to blood loss (chronic) (principal); G82.21 Paraplegia, complete; N13.30 Unspecified hydronephrosis; I10 Essential (primary) hypertension
CPT/HCPCS: 96365; J1642; J2916

== ENCOUNTER 2023-04-19 04:58 | Day surgery (SDC) | payer MEDICARE, BC ==
[2023-04-19] MEDS ORDERED: Sod Ferric Gluc Complx/Sucrose 125 MG in NS 100 ML IV SCH (06:00)
[2023-04-19 15:30] VITALS: BP 140/55
== END 2023-04-19 16:36 | disposition home or self-care (01) ==
LOC: ATC 04:58
DX: D50.0 Iron deficiency anemia secondary to blood loss (chronic) (principal); G82.21 Paraplegia, complete; N13.30 Unspecified hydronephrosis; D63.8 Anemia in other chronic diseases classified elsewhere; I10 Essential (primary) hypertension
CPT/HCPCS: 96365; J1642; J2916

== ENCOUNTER 2023-08-05 03:27 | Day surgery (SDC) | payer MEDICARE, BC ==
[2023-08-05 16:11] VITALS: BP 172/55
[2023-08-05 16:35] LABS: BASOPHILS ABSOLUTE AUTO 0.09 K/mm3 (0.00-0.23); BASOPHILS PERCENT AUTO 1 % (0-2); EOSINOPHILS ABSOLUTE AUTO 0.38 K/mm3 (0.00-0.68); EOSINOPHILS PERCENT AUTO 3 % (0-6); Hematocrit 28.1 % (37.0-53.0); Hemoglobin 8.4 g/dL (13.5-17.5); IMMATURE GRAN ABSOLUTE AUTO 0.45 K/mm3 (0.00-0.10); IMMATURE GRAN PERCENT AUTO 4 % (0-1); LYMPHOCYTES ABSOLUTE AUTO 1.86 K/mm3 (0.84-5.20); LYMPHOCYTES PERCENT AUTO 16 % (21-46); MONOCYTES PERCENT AUTO 7 % (4-13); Mean Corpuscular HGB Conc 29.9 g/dL (31.5-36.5); Mean Corpuscular Volume 90 fL (80-100); Mean Platelet Volume 8.8 fL (9.1-12.4); NEUTROPHILS ABSOLUTE AUTO 8.13 K/mm3 (1.96-9.15); NEUTROPHILS PERCENT AUTO 70 % (41-73); Platelet Count 565 K/mm3 (150-400); RDW Coefficient Variation 15.1 % (11.7-14.2); RDW Standard Deviation 49.9 fL (35.1-46.3); Red Blood Cell Count 3.11 M/mm3 (4.30-5.90); White Blood Cell Count 11.71 K/mm3 (4.00-11.30)
[2023-08-05 16:58] LABS: Magnesium, Blood 2.2 mg/dL (1.6-2.4); Percent Saturation 16.3 % (20.0-50.0)
[2023-08-05 16:59] LABS: Albumin/Globulin Ratio 0.4 (0.8-1.8); Bilirubin, Total 0.2 mg/dL (0.1-1.0); Bun/Creatinine Ratio 30.4 (12.0-20.0); Calcium, Blood 8.1 mg/dL (8.5-10.1); Creatinine, Blood 1.15 mg/dL (0.60-1.20); Globulin, Blood 4.8 g/dL (2.2-4.0); Potassium, Blood 4.6 mmol/L (3.5-5.5); Total Protein, Blood 6.8 g/dL (6.4-8.2)
== END 2023-08-05 16:15 | disposition home or self-care (01) ==
LOC: ATC 03:27
PROVIDERS: Nurse Practitioner Family
DX: D63.8 Anemia in other chronic diseases classified elsewhere (principal); R25.2 Cramp and spasm; I12.9 Hypertensive chronic kidney disease with stage 1 through stage 4 chronic kidney disease, or unspecified chronic kidney disease; N18.2 Chronic kidney disease, stage 2 (mild); Z79.4 Long term (current) use of insulin; Z79.899 Other long term (current) drug therapy
CPT/HCPCS: 36591; 80053; 82728; 83540; 83550; 83735; 85025; J1642

== ENCOUNTER 2023-08-18 22:51 | Inpatient (IN) | payer MEDICARE, BC ==
[~2023-08-18] VITALS: Ht 190.5 cm; Wt 145.6 kg
[~2023-08-18 22:51] MED LIST changes: -HUMALOG JU100 UNIT/2 SC; +Sanctura20 MG PO
[2023-08-18] MEDS ORDERED: NS 1,000 ML IV SCH (23:35)
[2023-08-19 00:03] LABS: Source, Urine Foley catheter
[2023-08-19 00:08] LABS: BASOPHILS ABSOLUTE AUTO 0.11 K/mm3 (0.00-0.23); BASOPHILS PERCENT AUTO 1 % (0-2); EOSINOPHILS ABSOLUTE AUTO 0.37 K/mm3 (0.00-0.68); EOSINOPHILS PERCENT AUTO 3 % (0-6); Hematocrit 28.2 % (37.0-53.0); Hemoglobin 8.1 g/dL (13.5-17.5); IMMATURE GRAN ABSOLUTE AUTO 0.36 K/mm3 (0.00-0.10); IMMATURE GRAN PERCENT AUTO 3 % (0-1); LYMPHOCYTES ABSOLUTE AUTO 1.54 K/mm3 (0.84-5.20); LYMPHOCYTES PERCENT AUTO 13 % (21-46); MONOCYTES ABSOLUTE AUTO 0.89 K/mm3 (0.16-1.47); MONOCYTES PERCENT AUTO 8 % (4-13); Mean Corpuscular HGB 26.5 pg (26.0-34.0); Mean Corpuscular HGB Conc 28.7 g/dL (31.5-36.5); Mean Corpuscular Volume 92 fL (80-100); Mean Platelet Volume 8.5 fL (9.1-12.4); NEUTROPHILS ABSOLUTE AUTO 8.55 K/mm3 (1.96-9.15); NEUTROPHILS PERCENT AUTO 73 % (41-73); Platelet Count 533 K/mm3 (150-400); RDW Standard Deviation 54.3 fL (35.1-46.3); Red Blood Cell Count 3.06 M/mm3 (4.30-5.90); White Blood Cell Count 11.82 K/mm3 (4.00-11.30)
[2023-08-19 00:08] LABS: Bilirubin, Urine Neg (Neg); Blood, Urine 5+ (Neg); Glucose Qualitative, Urine Neg (Neg); Ketones, Urine Neg (Neg); Leukocyte Esterase, Urine 3+ (Neg); Nitrite, Urine Neg (Neg); Protein, Urine 3+ (Neg); Urobilinogen, Urine NORM (Normal)
[2023-08-19 00:14] LABS: Appearance, Urine Cloudy (Clear); Color, Urine Yellow (P-Yellow)
[2023-08-19 00:21] LABS: Bacteria Many /hpf; Red Blood Cells, Urine TNTC /hpf (0-2); Squamous Epithelial Cells Few /hpf (Few); White Blood Cells, Urine TNTC /hpf (0-5)
[2023-08-19 00:25] LABS: Albumin/Globulin Ratio 0.4 (0.8-1.8); Bilirubin, Total 0.2 mg/dL (0.1-1.0); Calcium, Blood 8.3 mg/dL (8.5-10.1); Creatinine, Blood 1.62 mg/dL (0.60-1.20); Globulin, Blood 5.1 g/dL (2.2-4.0); Magnesium, Blood 2.8 mg/dL (1.6-2.4); Potassium, Blood 5.4 mmol/L (3.5-5.5); Total Protein, Blood 7.1 g/dL (6.4-8.2)
[2023-08-19] MEDS ORDERED: NS 1,000 ML IV SCH ×2 (01:25→01:35)
[2023-08-19] MEDS ORDERED: OxyCODONE HCL 30 MG TAB (Immediate Release) PO ONE (01:35)
[2023-08-19] MEDS ORDERED: Meropenem 1,000 MG in NS 100 ML IV ONE ×2 (02:20→23:55)
[2023-08-19] MEDS ORDERED: NS 1,000 ML IV ONE (02:25)
[2023-08-19] MEDS ORDERED: Ondansetron HCl 2 MG / ML 2ML Vial IV PRN (02:25)
[2023-08-19] MEDS ORDERED: Albumin (Human) 25gm/100ml 100 ML IV ONE (03:00)
[2023-08-19 04:14] VITALS: BP 144/97
[2023-08-19 04:32] LABS: Hematocrit 25.8 % (37.0-53.0); Hemoglobin 7.4 g/dL (13.5-17.5); Mean Corpuscular HGB 26.4 pg (26.0-34.0); Mean Corpuscular HGB Conc 28.7 g/dL (31.5-36.5); Mean Corpuscular Volume 92 fL (80-100); Mean Platelet Volume 8.7 fL (9.1-12.4); Platelet Count 472 K/mm3 (150-400); RDW Coefficient Variation 15.9 % (11.7-14.2); RDW Standard Deviation 54.7 fL (35.1-46.3); White Blood Cell Count 9.26 K/mm3 (4.00-11.30)
[2023-08-19 04:50] LABS: International Normalized Ratio 1.02; Prothrombin Time Results 10.9 Sec (9.7-11.5)
[2023-08-19 04:55] LABS: Albumin/Globulin Ratio 0.4 (0.8-1.8); Bilirubin, Total 0.2 mg/dL (0.1-1.0); Bun/Creatinine Ratio 30.3 (12.0-20.0); Calcium, Blood 7.9 mg/dL (8.5-10.1); Creatinine, Blood 1.55 mg/dL (0.60-1.20); Globulin, Blood 4.6 g/dL (2.2-4.0); Potassium, Blood 4.8 mmol/L (3.5-5.5); Total Protein, Blood 6.6 g/dL (6.4-8.2)
[2023-08-19 04:57] LABS: BAND PERCENT MAN 4 % (0-8); BASOPHILS ABSOLUTE MAN 0.37 K/mm3 (0.00-0.23); BASOPHILS PERCENT MAN 4 % (0-2); EOSINOPHILS ABSOLUTE MAN 0.18 K/mm3 (0.00-0.68); EOSINOPHILS PERCENT MAN 2 % (0-6); LYMPHOCYTES ABSOLUTE MAN 1.29 K/mm3 (0.84-5.20); LYMPHOCYTES PERCENT MAN 14 % (21-46); METAMYELOCYTE ABSOLUTE MAN 0.09 K/mm3 (0.00-0.00); METAMYELOCYTE PERCENT MAN 1 % (0-0); MONOCYTES ABSOLUTE MAN 0.74 K/mm3 (0.16-1.47); MONOCYTES PERCENT MAN 8 % (4-13); MYELOCYTE ABSOLUTE MAN 0.18 K/mm3 (0.00-0.00); MYELOCYTE PERCENT MAN 2 % (0-0); NEUTROPHILS ABSOLUTE MAN 6.38 K/mm3 (1.96-9.15); SEG NEUTROPHILS PERCENT MAN 65 % (41-73); TOTAL CELLS COUNTED 100
--- NOTE | 2023-08-19 06:10 | NUR ---
RECEIVED A REPORT FROM ALEX DEL CID AT ER AT 0217. PT. TRANSFERRED TO MEDICAL FLOOR AT 0237. INITIAL ADMISSION ASSESSMENT, MED RECONCILIATION AND MED HX COMPLETED BY ALEX AVILA. SKIN CHECK COMPLETED BY TWO RN'S. PICTURES OF THE SKIN WOUNDS TAKEN WITH THE PT.'S CONSENT AND PLACED ON THE CHART. PT. REQUIRES A LIFT FOR TRANSFERRING. 3L VIA NC. PORT ON R UPPER CHEST/DRAWS. NS BOLUS FINISHING SECOND BAG THAT WAS STARTED AT THE ER. TELE:SINUS@90. PT. IS A&O X4, ABLE TO MAKE HIS NEEDS KNOWN. NO ACUTE EVENTS FROM 329 TO 617. BED AT THE LOWEST POSITION, CALL LIGHT IN REACH. WILL HANDOFF TO THE INCOMING SHIFT NURSE.
[2023-08-19 07:24] VITALS: BP 188/77
[2023-08-19] MEDS ORDERED: Meropenem 1,000 MG in NS 100 ML IV SCH (08:00)
[2023-08-19] MEDS ORDERED: Enoxaparin 40 MG/0.4 ML SYR SC SCH (09:00)
[2023-08-19] MEDS ORDERED: OxyCODONE HCL 30 MG TAB (Immediate Release) PO PRN (09:45)
[2023-08-19] MEDS ORDERED: Morphine Sulfate 30 MG TabCR PO SCH (10:00)
[2023-08-19] MEDS ORDERED: Polyethylene Glycol 3350 17 gm PO PRN (10:20)
[2023-08-19] MEDS ORDERED: ALLEGRA ALLERG180 MG PO (11:29)
[2023-08-19] MEDS ORDERED: Insulin Human Lispro 100 Units/ML 3ML Syringe SC SCH (11:30)
--- NOTE | 2023-08-19 11:41 | NUR ---
PHYSCIAN CONTACT DR. LIANG NOTIFIED OF COMPLETED HOME MED REC. TYLENOL REQUESTED FOR AT THIS TIME. TEMP OF 99.6 AND PT FEELING FEVERISH. ALSO NOTIFEID DR. LIANG THAT DR. ARAGON IS A DR. OF THE PATIENT AND THE FAMILY IS WORRIED THAT HE MAY NEED NOTIFIED.
[2023-08-19] MEDS ORDERED: Acetaminophen 325 MG TABLET PO PRN (11:55)
[2023-08-19] MEDS ORDERED: Arginine/Glutamine/Calcium Hmb 1 Packet PO SCH (12:35)
[2023-08-19] MEDS ORDERED: ZANAFLEX413 PO (13:55)
[2023-08-19] MEDS ORDERED: Gabapentin 300 MG Cap PO SCH (14:00)
[2023-08-19 15:00] VITALS: BP 155/53
[2023-08-19] MEDS ORDERED: Cefepime HCl 2,000 MG in NS 100 ML IV SCH (16:00)
[2023-08-19] MEDS ORDERED: Omeprazole 20 MG CapCR PO SCH (16:30)
--- NOTE | 2023-08-19 18:17 | NUR ---
SHIFT SUMMARY PT COMPLAINING OF PAIN THIS AM. DR. LIANG NOTIFIED & HOME PAIN MED REGIMEN STARTED. HOME MED LIST COMPLETED TODAY WITH PT AND ADMISSION FINISHED THIS SHIFT. PT MORE ALERT THIS AFTERNOON, BUT STILL VERY TIRED AND SLEEPING OFTEN. ASSISTED [facility] HOME WOUND CARE ORDERS. WOUND CARE COMPLETED TODAY 08/19/23. LARGE VOLUMES OF URINE OUTPUT. CLOUDY/YELLOW IN COLOR. AIR BED IN PLACE NOW. R HEEL FLOATED ON PILLOWS. PT REFUSING REPOSITION ONCE HE WAS PLACED ON AIR BED. PT STATES HE IS REPOSITIONING HIS HIPS OCCATIONALLY ON HIS OWN. NO OTHER ACUTE CHANGES IN ASSESSMENT AT THIS TIME. SEE EMAR FOR PAIN DRYING MACHINE OPERATOR. PT C/O HEADACHE THIS AFTERNOON. MEDICATED WITH TYLENOL. CALL LIGHT IN REACH. VS REVIEWED. DENIES OTHER NEEDS AT THIS TIME.
[2023-08-19 19:37] VITALS: BP 173/64
[2023-08-19] MEDS ORDERED: Trospium Chloride 20 MG Tab PO SCH (21:00)
[2023-08-19] MEDS ORDERED: Miconazole Nitrate 2% 85 GM PWD TOP SCH (21:00)
[2023-08-19] MEDS ORDERED: Lactobacil 2-S.Thermo-Bifido 1 1 Cap PO SCH (21:00)
[2023-08-19] MEDS ORDERED: Atorvastatin 40 MG Tab PO SCH (21:00)
[2023-08-19] MEDS ORDERED: AmLODIPine Besylate 5 MG Tab PO SCH (21:00)
[2023-08-19] MEDS ORDERED: Methenamine 1 GM TAB PO SCH (21:00)
[2023-08-20 03:08] VITALS: BP 179/69
[2023-08-20 04:46] LABS: Hematocrit 27.2 % (37.0-53.0); Hemoglobin 7.7 g/dL (13.5-17.5); Mean Corpuscular HGB 26.5 pg (26.0-34.0); Mean Corpuscular HGB Conc 28.3 g/dL (31.5-36.5); Mean Corpuscular Volume 94 fL (80-100); Mean Platelet Volume 8.5 fL (9.1-12.4); Platelet Count 430 K/mm3 (150-400); RDW Coefficient Variation 15.9 % (11.7-14.2); RDW Standard Deviation 54.7 fL (35.1-46.3); Red Blood Cell Count 2.91 M/mm3 (4.30-5.90); White Blood Cell Count 6.88 K/mm3 (4.00-11.30)
--- NOTE | 2023-08-20 04:51 | NUR ---
SHIFT SUMMARY PT HAS BEEN DROUSY MOST OF THIS SHIFT. HS NARCOTIC REFUSED PER PT. 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 CHRONIC WEN DRAINING TEA COLOR URINE >1L OUTPUT ON THIS SHIFT. COLOSTOMY INTACT/C/D/. O2 3L NC, HOB >45DEGREES. PT'S DIONNE CALLED AT HS, UNABLE TO CALL BACK D/T BUSY UNIT. WILL PASS TO THE INCOMING SHIFT NURSE. PT DOES NOT USE THE CALL LIGHT AT THIS TIME, UNABLE TO HOLD A MED CUP WITH HIS FINGERS/ ANSWERS "YES", "NO". A&O X2-3. ASSISTED TO DRINK FLUIDS AND TAKE MEDS. BED AT THE LOWEST POSITION, FREQUENT CHECKS [id number] (SITTING NEAR THE ROOM AT NURSE LENS INSPECTOR,) WILL HANDOFF TO THE INCOMING SHIFT NURSE.
[2023-08-20 05:07] LABS: Albumin, Blood 1.9 g/dL (3.4-5.0); Anion Gap 8 mmol/L (3-11); Blood Urea Nitrogen 43 mg/dL (8-24); Bun/Creatinine Ratio 34.7 (12.0-20.0); CO2, Blood 29 mmol/L (21-32); Calcium, Blood 8.4 mg/dL (8.5-10.1); Chloride, Blood 112 mmol/L (98-108); Creatinine, Blood 1.24 mg/dL (0.60-1.20); Glomerular Filtration Rate 63 (60-); Glucose, Blood 157 mg/dL (70-99); Phosphorus, Blood 3.5 mg/dL (2.5-4.9); Potassium, Blood 4.6 mmol/L (3.5-5.5); Sodium, Blood 144 mmol/L (136-145)
--- NOTE | 2023-08-20 06:39 | NUR ---
COLOSTOMY BAG CHANGED AT 0620 ON 08/20/23. PT HAS HIS OWN OSTOMY BAGS.
[2023-08-20 07:30] VITALS: BP 188/61
[2023-08-20] MEDS ORDERED: Metoprolol Succinate 50 MG TABCR PO SCH (09:00)
[2023-08-20] MEDS ORDERED: Loratadine 10 MG Tab PO SCH (09:00)
[2023-08-20] MEDS ORDERED: Torsemide 20 MG TAB PO SCH (09:00)
[2023-08-20 15:56] VITALS: BP 152/66
--- NOTE | 2023-08-20 17:58 | NUR ---
SHIFT SUMMARY WOUND CARE COMPLETED THIS SHIFT. MEDICATED FOR PAIN ORDERED, SEE EMAR. PT REPOSITIONED ONCE TODAY. REFUSED OTHER REPOSITIONING. PT STATES HE IS MOVING HIS HIPS IN BED OKAY. MEDIPORT RUNNING TKO WITH NS. MEDIPORT DRESSING CHANGED TODAY. NO OTHER ACUTE CHANGES IN ASSESSMENT AT THIS TIME. VS REVIEWED. CALL LIGHT IN REACH. DENIES OTHER NEEDS AT THIS TIME.
[2023-08-20 19:14] VITALS: BP 144/57
--- NOTE | 2023-08-21 04:04 | NUR ---
SHIFT SUMMARY PT. IS A&O X4, ABLE TO MAKE HIS NEEDS KNOWN, APPEARS LESS DROWSY DURING THIS SHIFT THAN PREVIOUS 2NOC SHIFTS. PT.REPORTS 5/10WORST RIGHT SHOULDER PAIN, 2100 SCHEDULED MS CONTIN 30MG PO ADMINISTERED, WHICH PT. REPORTS THAT IS NOT EFFECTIVE STATING:"I RATHER TAKE THE OXY, THE MORPHINE DOES'T DO ANYTHING FOR ME." PT.REQUESTED THE 30MG OXYCODONE PO (Q4HRS PRN), AND THIS NURSE VERIFIED WITH THE CHARGE NURSE THAT OK TO GIVE THE BOTH NARCOTICS AT THE SAME TIME (AT HS X1). RT BY BEDSIDE AT MIDNIGHT,CONT PULSE OX MONITOR 98%@3L VIA NC.HOB>45 DEGREES. DRESSINGS CHANGED ON HIP AND GLUTEAL WOUND DURING THIS SHIFT.HS B. PT DENIES SOB AND CHEST PAIN/PRESSURE. NS KEEP OPEN INFUSING, WEN INTACT AND SECURELY IN PLACE. NO ACUTE EVENTS DURING THIS SHIFT, BED AT THE LOWEST POSITION, CALL LIGHT IN REACH. WILL HANDOFF TO THE INCOMING SHIFT NURSE.
[2023-08-21 04:33] VITALS: BP 173/65
[2023-08-21 04:51] LABS: Hematocrit 29.7 % (37.0-53.0); Hemoglobin 8.5 g/dL (13.5-17.5); Mean Corpuscular HGB 26.4 pg (26.0-34.0); Mean Corpuscular HGB Conc 28.6 g/dL (31.5-36.5); Mean Corpuscular Volume 92 fL (80-100); Mean Platelet Volume 8.6 fL (9.1-12.4); Platelet Count 489 K/mm3 (150-400); RDW Coefficient Variation 15.7 % (11.7-14.2); RDW Standard Deviation 52.5 fL (35.1-46.3); Red Blood Cell Count 3.22 M/mm3 (4.30-5.90)
[2023-08-21 05:24] LABS: BASOPHILS ABSOLUTE MAN 0.15 K/mm3 (0.00-0.23); BASOPHILS PERCENT MAN 2 % (0-2); Bun/Creatinine Ratio 42.4 (12.0-20.0); Calcium, Blood 8.8 mg/dL (8.5-10.1); Creatinine, Blood 1.18 mg/dL (0.60-1.20); EOSINOPHILS ABSOLUTE MAN 0.67 K/mm3 (0.00-0.68); EOSINOPHILS PERCENT MAN 9 % (0-6); LYMPHOCYTES PERCENT MAN 20 % (21-46); MONOCYTES ABSOLUTE MAN 0.37 K/mm3 (0.16-1.47); MONOCYTES PERCENT MAN 5 % (4-13); MYELOCYTE ABSOLUTE MAN 0.15 K/mm3 (0.00-0.00); MYELOCYTE PERCENT MAN 2 % (0-0); NEUTROPHILS ABSOLUTE MAN 4.65 K/mm3 (1.96-9.15); Potassium, Blood 4.4 mmol/L (3.5-5.5); SEG NEUTROPHILS PERCENT MAN 62 % (41-73); TOTAL CELLS COUNTED 100
[2023-08-21 07:36] VITALS: BP 189/65
[2023-08-21] MEDS ORDERED: TiZANidine HCl 4 MG Tab PO PRN ×2 (11:00→13:00)
[2023-08-21] MEDS ORDERED: TiZANidine HCl 4 MG Tab PO ONE ×2 (11:00→13:00)
[2023-08-21 15:06] VITALS: BP 151/66
--- NOTE | 2023-08-21 15:34 | NUR ---
SUPPORTIVE VISIT PT LIKES TO BE ADDRESSED "ISAIAH". PRIMARY RN AT BEDSIDE PROVIDING WOUND CARE. THIS RN ASSISTED PRIMARY RN. ISAIAH IS A/O X4. HE EXPRESSED THAT HIS UTI SX WERE IMPROVING. HIS PRIMARY CONCERN IS UPPER EXTREMITY TREMORS. ISAIAH REPORTS HE SPILLED HIS COFFEE ALL OVER HIMSELF WITH UNCONTROLLED JERKING MOVEMENTS. REVIEWED PT'S CONCERN WITH PROVIDER, WHOM WILL ADDRESS UNCONTROLLED MOVEMENTS WITH PT DURING ROUNDS. PALLIATIVE CARE TO REMAIN AVAILABLE NEEDED.
[2023-08-21 19:15] VITALS: BP 157/57
--- NOTE | 2023-08-21 19:23 | NUR ---
report recieved verified. pt a/o x 4 very pleasent and cooperative, makes needs known, stated his arms and hand are gerking more than usual, yaima noted from previous admits pt has had same thing happen. pt pain is chronic to arms and hands and was medicated. also skin was assessed and dressing chage was done to left hip. min cath draining clear yellow urine 1100 zanaflex given prn by breaknurse for increased spasms. i went to lunch 1200 pt not able to complete sentence and is falling asleeps, pt seems worried but i am assuming that the zanaflex caused this reaction since it is normally taken for sleep. will cont to monitor. dr kim in and ordered a ct scan of brain. scan showed it was negative for and abnormalities. 1700 held medications given per pt request, pt not able to feed self but is able to be fed, krysten dinner and is more awake yet spasms still cont.
[2023-08-21] MEDS ORDERED: Amoxicillin/Clavulanate K 875 MG Tab PO SCH (21:00)
[2023-08-22] MEDS ORDERED: NS 250 ML IV PRN (02:05)
[2023-08-22 03:44] VITALS: BP 153/112
--- NOTE | 2023-08-22 04:25 | NUR ---
SHIFT SUMMARY PT. IS DIFFICULT TO WAKE UP DURING THIS SHIFT. PT ASLEEP T/O THIS SHIFT. UNABLE TO GET TO STAY AWAKE LONG ENOUGH FOR SCHEDULED HS MEDS AT 2100. SHELTERED WORKSHOP EXECUTIVE DIRECTOR NOTIFIED. HELD 2100 MEDS, RETURNED TO PIXIS. OXYCODONE X2 PRN DURING THIS SHIFT. CHRONIC EWN APPEARS LEAKING SCANT AMOUNT DURING THIS SHIFT. ASSESSED THE WEN AND ADDED 10MLS NS TO THE BALLOON. PT HOB UPRIGHT, NO COUGH NOTED. LS CLEAR. NO N/V, OR ACUTE CHANGES//DISTRESS NOTED DURING THIS SHIFT. RR EVEN AND UNLABORED,3L O2 VIA NC. HS CB. BED AT THE LOWEST POSITION, CALL LIGHT IN REACH. WILL HANDOFF TO THE INCOMING SHIFT NURSE. KVO 20MLS/HR TO RIGHT SIDE CHEST MEDPORT INFOUSING W/O ANY ISSUES.
[2023-08-22 07:22] VITALS: BP 184/69
[2023-08-22 07:43] LABS: Hematocrit 29.3 % (37.0-53.0); Hemoglobin 8.4 g/dL (13.5-17.5); Mean Corpuscular HGB 26.3 pg (26.0-34.0); Mean Corpuscular HGB Conc 28.7 g/dL (31.5-36.5); Mean Corpuscular Volume 92 fL (80-100); Mean Platelet Volume 8.4 fL (9.1-12.4); Platelet Count 469 K/mm3 (150-400); RDW Coefficient Variation 15.6 % (11.7-14.2); RDW Standard Deviation 52.8 fL (35.1-46.3); Red Blood Cell Count 3.19 M/mm3 (4.30-5.90); White Blood Cell Count 9.77 K/mm3 (4.00-11.30)
[2023-08-22 07:57] LABS: Albumin, Blood 2.1 g/dL (3.4-5.0); Anion Gap 6 mmol/L (3-11); Blood Urea Nitrogen 50 mg/dL (8-24); Bun/Creatinine Ratio 47.2 (12.0-20.0); CO2, Blood 32 mmol/L (21-32); Calcium, Blood 8.4 mg/dL (8.5-10.1); Chloride, Blood 111 mmol/L (98-108); Creatinine, Blood 1.06 mg/dL (0.60-1.20); Glomerular Filtration Rate 76 (60-); Glucose, Blood 160 mg/dL (70-99); Magnesium, Blood 2.1 mg/dL (1.6-2.4); Phosphorus, Blood 3.3 mg/dL (2.5-4.9); Potassium, Blood 4.1 mmol/L (3.5-5.5); Sodium, Blood 145 mmol/L (136-145)
[2023-08-22 08:01] LABS: BAND PERCENT MAN 11 % (0-8); BASOPHILS ABSOLUTE MAN 0.19 K/mm3 (0.00-0.23); BASOPHILS PERCENT MAN 2 % (0-2); EOSINOPHILS ABSOLUTE MAN 0.39 K/mm3 (0.00-0.68); EOSINOPHILS PERCENT MAN 4 % (0-6); LYMPHOCYTES ABSOLUTE MAN 1.36 K/mm3 (0.84-5.20); LYMPHOCYTES PERCENT MAN 14 % (21-46); MONOCYTES ABSOLUTE MAN 0.19 K/mm3 (0.16-1.47); MONOCYTES PERCENT MAN 2 % (4-13); MYELOCYTE ABSOLUTE MAN 0.09 K/mm3 (0.00-0.00); MYELOCYTE PERCENT MAN 1 % (0-0); NEUTROPHILS ABSOLUTE MAN 7.52 K/mm3 (1.96-9.15); SEG NEUTROPHILS PERCENT MAN 66 % (41-73); TOTAL CELLS COUNTED 100
--- NOTE | 2023-08-22 12:05 | NUR ---
1130- repositioned pt to his left side.
[2023-08-22] MEDS ORDERED: Sod Ferric Gluc Complx/Sucrose 125 MG in NS 100 ML IV ONE (14:35)
[2023-08-22 16:45] VITALS: BP 160/62
[2023-08-22 19:17] VITALS: BP 144/60
--- NOTE | 2023-08-22 19:19 | NUR ---
report received verified a/o x 3 labs are wnl and vss, but pt stating he isnt feeling very well and dosent understand why. MD IS AWARE AND WILL BE IN TO SEE PT. MD INTO SEE PT BUT NO NEW ORDERS GIVEN, AT BEDSIDE AND IS VERY CONCERNED THAT WE WILL POSSIBLY BE SENDING PT HOME. I CIMFIRMED WITH MD AND PT WILL BE STAYING HERE, POSSIBLE XRAY TO BE DONE FOR SHOULDERS AND BACK. DRESSING CHANGES DONE TO PT RIGHT AND LEFT HIP LEFT HIP WAS PACKED AND COVERED WITH ABD PAD. WEN WHEN PT ON SIDE DRAINING WHITE SEDIMENT AND HEAVELY LEAKING URING A 4X4 WAS PLACED AT WEN INSERTION SITE AND ALSO A PURWIC WAS PLACED TO HOPFULLY CATCH REMAINING URING. WILL CONT TO MONITOR
[2023-08-23 04:04] VITALS: BP 157/56
[2023-08-23 05:05] LABS: Hemoglobin 8.3 g/dL (13.5-17.5); Mean Corpuscular HGB 26.2 pg (26.0-34.0); Mean Corpuscular HGB Conc 28.6 g/dL (31.5-36.5); Mean Corpuscular Volume 92 fL (80-100); Mean Platelet Volume 8.4 fL (9.1-12.4); Platelet Count 459 K/mm3 (150-400); RDW Coefficient Variation 15.5 % (11.7-14.2); RDW Standard Deviation 51.8 fL (35.1-46.3); Red Blood Cell Count 3.17 M/mm3 (4.30-5.90); White Blood Cell Count 7.25 K/mm3 (4.00-11.30)
[2023-08-23 05:26] LABS: BAND PERCENT MAN 2 % (0-8); BASOPHILS ABSOLUTE MAN 0.07 K/mm3 (0.00-0.23); BASOPHILS PERCENT MAN 1 % (0-2); EOSINOPHILS ABSOLUTE MAN 0.87 K/mm3 (0.00-0.68); EOSINOPHILS PERCENT MAN 12 % (0-6); LYMPHOCYTES % ATYPICAL MANUAL 1 % (0-0); LYMPHOCYTES ABSOLUTE MAN 1.16 K/mm3 (0.84-5.20); LYMPHOCYTES PERCENT MAN 15 % (21-46); METAMYELOCYTE ABSOLUTE MAN 0.14 K/mm3 (0.00-0.00); METAMYELOCYTE PERCENT MAN 2 % (0-0); MONOCYTES ABSOLUTE MAN 0.29 K/mm3 (0.16-1.47); MONOCYTES PERCENT MAN 4 % (4-13); MYELOCYTE ABSOLUTE MAN 0.21 K/mm3 (0.00-0.00); MYELOCYTE PERCENT MAN 3 % (0-0); NEUTROPHILS ABSOLUTE MAN 4.49 K/mm3 (1.96-9.15); SEG NEUTROPHILS PERCENT MAN 60 % (41-73); TOTAL CELLS COUNTED 100
[2023-08-23 05:40] LABS: Bun/Creatinine Ratio 48.1 (12.0-20.0); Calcium, Blood 8.2 mg/dL (8.5-10.1); Creatinine, Blood 0.94 mg/dL (0.60-1.20); Magnesium, Blood 2.2 mg/dL (1.6-2.4); Potassium, Blood 3.8 mmol/L (3.5-5.5); Thyroid Stimulating Hormone 4.9 uIU/mL (0.360-4.800)
--- NOTE | 2023-08-23 06:18 | NUR ---
NOC SHIFT SUMMARY PT TURNED EVERY 2 HOURS. UPDATE VIA TELEPHONE REGARDING PLAN. WEN CATHETER CONTINUES TO LEAK SO PURE WICK IS IN PLACE WELL. PT WAS ABLE TO SLEEP AFTER GETTING MEDICATED FOR PAIN. CALL LIGHT WITHIN REACH.
[2023-08-23 07:37] VITALS: BP 151/62
[2023-08-23] MEDS ORDERED: TiZANidine HCl 4 MG Tab PO PRN ×2 (09:20→13:50)
[2023-08-23] MEDS ORDERED: OxyCODONE HCL 30 MG TAB (Immediate Release) PO PRN (13:50)
--- NOTE | 2023-08-23 14:54 | NUR ---
THIS RN PROVIDING BREAK COVERAGE FOR PRIMARY RN, ANABEL VANEGAS RN.
[2023-08-23 16:11] VITALS: BP 147/55
--- NOTE | 2023-08-23 17:31 | NUR ---
PT PLEASANT COOP A/O STATES PAIN MANAGED WITH AVAIL MEDS. PENDING WOUND CHANGE THIS WINIFRED. IN TO VISIT TODAY. HAS BEEN SLEEPING SOME TODAY. WEN CATH DRAINING YELLOW FLUID. NO NEW CONCERNS NOTED. BED IN LOW POSITION, CALL LITE IN REACH, CALLS APPROP
[2023-08-23 19:18] VITALS: BP 161/64
[2023-08-23] MEDS ORDERED: Gabapentin 300 MG Cap PO SCH (21:00)
[2023-08-24 02:16] VITALS: BP 147/72
--- NOTE | 2023-08-24 05:21 | NUR ---
SHIFT SUMMARY PT HAD WOUND DRESSING CHANGED BY THIS RN. DRESSINGS WERE SATURATED WITH ODOROUS BROWN/RED EXUDATE. PT MEDICATED FOR PAIN BEFORE DRESSING CHANGE. PT HAS BEEN PLEASANT AND COOPERATIVE WITH CARE.
[2023-08-24 07:30] VITALS: BP 166/60
[2023-08-24 10:08] LABS: Hematocrit 30.9 % (37.0-53.0); Mean Corpuscular HGB 26.8 pg (26.0-34.0); Mean Corpuscular HGB Conc 29.1 g/dL (31.5-36.5); Mean Corpuscular Volume 92 fL (80-100); Mean Platelet Volume 8.7 fL (9.1-12.4); Platelet Count 476 K/mm3 (150-400); RDW Coefficient Variation 15.6 % (11.7-14.2); RDW Standard Deviation 51.9 fL (35.1-46.3); Red Blood Cell Count 3.36 M/mm3 (4.30-5.90); White Blood Cell Count 11.81 K/mm3 (4.00-11.30)
[2023-08-24 10:28] LABS: BAND PERCENT MAN 2 % (0-8); BASOPHILS ABSOLUTE MAN 0.11 K/mm3 (0.00-0.23); BASOPHILS PERCENT MAN 1 % (0-2); Bun/Creatinine Ratio 51.2 (12.0-20.0); Calcium, Blood 8.4 mg/dL (8.5-10.1); Creatinine, Blood 0.94 mg/dL (0.60-1.20); EOSINOPHILS ABSOLUTE MAN 0.59 K/mm3 (0.00-0.68); EOSINOPHILS PERCENT MAN 5 % (0-6); LYMPHOCYTES ABSOLUTE MAN 1.53 K/mm3 (0.84-5.20); LYMPHOCYTES PERCENT MAN 13 % (21-46); MONOCYTES ABSOLUTE MAN 0.23 K/mm3 (0.16-1.47); MONOCYTES PERCENT MAN 2 % (4-13); MYELOCYTE ABSOLUTE MAN 0.11 K/mm3 (0.00-0.00); MYELOCYTE PERCENT MAN 1 % (0-0); NEUTROPHILS ABSOLUTE MAN 9.21 K/mm3 (1.96-9.15); Potassium, Blood 4.2 mmol/L (3.5-5.5); SEG NEUTROPHILS PERCENT MAN 76 % (41-73); TOTAL CELLS COUNTED 100
[2023-08-24] MEDS ORDERED: OxyCODONE HCL 30 MG TAB (Immediate Release) PO PRN (10:50)
[2023-08-24] MEDS ORDERED: Lidocaine 4% 1 Patch TOP SCH (11:00)
[2023-08-24] MEDS ORDERED: CefTRIAXone Sodium 1,000 MG in NS 100 ML IV SCH (11:02)
[2023-08-24] MEDS ORDERED: Alteplase Recombinant 2 MG / Vial IV PRN (11:25)
--- NOTE | 2023-08-24 14:02 | NUR ---
PATIENT'S MEDIPORT IS NO LONGER DRAWING; THIS WAS REPORTED BY MANUFACTURER'S REPRESENTATIVE. I HAVE BEEN UNABLE TO GET THE LINE TO DRAW; LINE WAS BEEN FLUSHED MULTIPLE TIMES, WAS HEPARINIZED, AND 1 DOSE OF CATH FLOW HAS BEEN INSTILLED WITHOUT BLOOD RETURN. LINE IS NOW ALSO BECOMING HARD TO FLUSH. PT STATES THAT HE HASN'T HAD ISSUES WITH HIS PORT BEFORE AND HAS BEEN DRAWING SINCE THIS ADMISSION. CALLED CHANTALE COLMENARES RN FOR GUIDANCE OF CARE FOR THIS ISSUE. SHE ADVISES TO DO ANOTHER DOSE OF CATH FLOW; IF STILL NOT DRAWING TO THEN DEACCESSED AND REACCESS.
--- NOTE | 2023-08-24 15:33 | NUR ---
POSITIVE BLOOD RETURN AFTER SECOND DOSE OF CATH FLOW
[2023-08-24 17:20] VITALS: BP 149/72
--- NOTE | 2023-08-24 17:53 | NUR ---
SHIFT SUMMARY: PT IS A&OX4/LIFT-2 PERSON ASSIST WITH CARE; MAKES NEEDS KNOWN. HE IS NOW RECEIVING IV ANTIBIOTICS FOR E COLI UTI. HIS MEDIPORT DRAWS AFTER RECEIVING 2 DOSES OF CATH FLOW TODAY; NOW RUNNING TKO. HE RECEIVED A BED BATH AND WOUND CARE TODAY; WOUND VAC STILL NEEDING TO BE PLACED; CANNOT USE HOME WOUND VAC HAVE TO USE HOSITAL ISSUED ONE PER CHIEF CLINICAL DIETITIAN. PATIENT IN BED, CALL LIGHT WITHIN REACH, NO SIGNS OR SYMPTOMS OF DISTRESS, PLAN OF CARE ONGOING.
[2023-08-24 19:18] VITALS: BP 174/52
--- NOTE | 2023-08-25 04:46 | NUR ---
SHIFT SUMMARY PT HAD MEDIPORT FLUSHED AND WORKED TO DRAW BY DAY SHIFT. PT HAS BEEN UNDERSTANDING AND COOPERATIVE WITH RECEIVING CARE. MEDICATED PER EMAR FOR PAIN. PT HAS BEEN PLEASANT WITH CARE TEAM.
[2023-08-25 05:02] VITALS: BP 162/64
[2023-08-25 05:20] LABS: Hematocrit 28.3 % (37.0-53.0); Hemoglobin 8.2 g/dL (13.5-17.5); Mean Corpuscular HGB 26.5 pg (26.0-34.0); Mean Corpuscular Volume 91 fL (80-100); Mean Platelet Volume 8.6 fL (9.1-12.4); Platelet Count 437 K/mm3 (150-400); RDW Coefficient Variation 15.7 % (11.7-14.2); RDW Standard Deviation 51.8 fL (35.1-46.3); White Blood Cell Count 10.14 K/mm3 (4.00-11.30)
[2023-08-25 05:57] LABS: Calcium, Blood 8.5 mg/dL (8.5-10.1); Creatinine, Blood 0.91 mg/dL (0.60-1.20); Potassium, Blood 4.3 mmol/L (3.5-5.5)
[2023-08-25 07:26] VITALS: BP 141/56
[2023-08-25] MEDS ORDERED: AMOCLA875 PO (11:22)
[2023-08-25] MEDS ORDERED: LACT PO (11:23)
[2023-08-25] MEDS ORDERED: JUVEN PACKET1 EA10 PO (11:23)
[2023-08-25] MEDS ORDERED: LIDOCAINE1 EAC1 TOP (11:24)
[2023-08-25] MEDS ORDERED: MIRALAX17 GM PO (11:25)
--- NOTE | 2023-08-25 15:29 | NUR ---
PT AWAKE DURING SHIFT REPORT. NO C/O. PT IS MORBIDLY OBESE WITH L LEG AMPUTATION. DRSG'S C/D/I; CHANGED PRIOR TO START OF SHIFT. CHRONIC WEN, LEAKING PER REPORT, CONTRIBUTING TO WOUNDS. PT REPOSITIONED DURING SHIFT. SITTING UPRIGHT FOR MEALS; PT ABLE TO FEED HIMSELF. OCCASSIONAL JERKING IN ARMS AND HANDS CAN MAKE IT DIFFICULT AT TIMES. MEDICATED FOR C/O PAIN PER EMAR. DR LIANG IN TO SEE PT AND DISCUSS PLAN OF CARE. D/C ORDERS PLACED. MEDS FAXED PER PT REQUEST. MEDIPORT DEACCESSED PER PROTOCOL PRIOR TO D/C. ORDERS AND INSTRUCTIONS REVIEWED WITH PT; VERBALIZED UNDERSTANDING. PT'S NEIGHBOR HERE WITH PT'S W/C FOR D/C TO HOME. ALL BELONGINGS WENT WITH PT.
== END 2023-08-25 14:35 | disposition home health service (06) | DRG 698 ==
LOC: ER 22:51 → MEDS 08-19 01:32
PROVIDERS: Internal Medicine; Student in an Organized Health Care Education/Training Program; ADMIT Internal Medicine
PROC: 0T9B70Z Drainage of Bladder with Drainage Device, Via Natural or Artificial Opening (ICD-10-PCS; principal; 2023-08-19)
PROC: 30233J1 Transfusion of Nonautologous Serum Albumin into Peripheral Vein, Percutaneous Approach (ICD-10-PCS; 2023-08-19)
PROC: 3E03329 Introduction of Other Anti-infective into Peripheral Vein, Percutaneous Approach (ICD-10-PCS; 2023-08-19)
DX: T83.511A Infection and inflammatory reaction due to indwelling urethral catheter, initial encounter (principal); A41.51 Sepsis due to Escherichia coli [E. coli]; G93.41 Metabolic encephalopathy; G82.20 Paraplegia, unspecified; E66.2 Morbid (severe) obesity with alveolar hypoventilation; J96.11 Chronic respiratory failure with hypoxia; I69.954 Hemiplegia and hemiparesis following unspecified cerebrovascular disease affecting left non-dominant side; Y84.6 Urinary catheterization as the cause of abnormal reaction of the patient, or of later complication, without mention of misadventure at the time of the procedure; L89.159 Pressure ulcer of sacral region, unspecified stage; K74.60 Unspecified cirrhosis of liver; L89.519 Pressure ulcer of right ankle, unspecified stage; E11.622 Type 2 diabetes mellitus with other skin ulcer; E11.22 Type 2 diabetes mellitus with diabetic chronic kidney disease; D63.1 Anemia in chronic kidney disease; E88.09 Other disorders of plasma-protein metabolism, not elsewhere classified; L89.319 Pressure ulcer of right buttock, unspecified stage; D50.9 Iron deficiency anemia, unspecified; Z93.3 Colostomy status; I48.0 Paroxysmal atrial fibrillation; I12.9 Hypertensive chronic kidney disease with stage 1 through stage 4 chronic kidney disease, or unspecified chronic kidney disease; E78.5 Hyperlipidemia, unspecified; Z89.612 Acquired absence of left leg above knee; Z99.81 Dependence on supplemental oxygen; N31.2 Flaccid neuropathic bladder, not elsewhere classified; J45.909 Unspecified asthma, uncomplicated; E05.90 Thyrotoxicosis, unspecified without thyrotoxic crisis or storm; Z79.899 Other long term (current) drug therapy; Z79.891 Long term (current) use of opiate analgesic; Z88.8 Allergy status to other drugs, medicaments and biological substances; Z88.1 Allergy status to other antibiotic agents; Z74.01 Bed confinement status; Z96.641 Presence of right artificial hip joint; Z90.49 Acquired absence of other specified parts of digestive tract; Z98.890 Other specified postprocedural states; Z85.3 Personal history of malignant neoplasm of breast; Z68.39 Body mass index [BMI] 39.0-39.9, adult
CPT/HCPCS: 36415; 51702; 70450; 80048; 80053; 80069; 81001; 82728; 82947; 83540; 83550; 83605; 83735; 83880; 84443; 85025; 85027; 85610; 87040; 87077; 87086; 87147; 87186; 93005; 93010; 94762; 96360; 96361; 99285-25; A9270; G0378; J0692; J0696; J1642; J1650; J2185; J2405; J2916; J2997; J7030; J7050; P9047

== ENCOUNTER → 2023-09-02 | Outpatient (CLI) | payer MEDICARE, BC ==
[~2023-09-02] MED LIST changes: +AMOCLA875 PO; +CIPR250 PO; +JUVEN PACKET1 EA10 PO; +LIDOCAINE1 EAC1 TOP
[2023-09-02 19:03] LABS: Source, Urine Foley catheter
[2023-09-02 19:14] LABS: Appearance, Urine Cloudy (Clear); Bilirubin, Urine Neg (Neg); Blood, Urine 5+ (Neg); Glucose Qualitative, Urine Neg (Neg); Ketones, Urine Neg (Neg); Leukocyte Esterase, Urine 3+ (Neg); Nitrite, Urine Neg (Neg); Protein, Urine 3+ (Neg); Urobilinogen, Urine NORM (Normal)
[2023-09-02 19:41] LABS: Color, Urine Pale Yellow (P-Yellow)
[2023-09-02 19:44] LABS: White Blood Cells, Urine TNTC /hpf (0-5)
[2023-09-02 19:45] LABS: Bacteria Many /hpf; Red Blood Cells, Urine 25-50 /hpf (0-2); Squamous Epithelial Cells Mod /hpf (Few); Transitional Epithelial Cells Few /hpf (0-Rare)
[2023-09-02 19:46] LABS: Yeast/Fungi Urine Mod /hpf
== END | disposition home or self-care (01) ==
LOC: LAB SHORT 10:36 → LAB 10:36
PROVIDERS: Nurse Practitioner Family
DX: R82.90 Unspecified abnormal findings in urine (principal)
CPT/HCPCS: 81001; 87086

== ENCOUNTER 2023-10-12 14:35 | Inpatient (IN) | payer MEDICARE, BC ==
[~2023-10-12] VITALS: Ht 185.4 cm; Wt 136.1 kg
[2023-10-12] MEDS ORDERED: Acetaminophen 325 MG TABLET PO ONE ×2 (14:50→17:05)
[2023-10-12] MEDS ORDERED: CefTRIAXone Sodium 2,000 MG in NS 100 ML IV ONE ×2 (14:50→17:05)
[2023-10-12 15:42] LABS: BASOPHILS ABSOLUTE AUTO 0.05 K/mm3 (0.00-0.23); BASOPHILS PERCENT AUTO 1 % (0-2); EOSINOPHILS ABSOLUTE AUTO 0.06 K/mm3 (0.00-0.68); EOSINOPHILS PERCENT AUTO 1 % (0-6); Hematocrit 28.1 % (37.0-53.0); Hemoglobin 8.3 g/dL (13.5-17.5); IMMATURE GRAN ABSOLUTE AUTO 0.31 K/mm3 (0.00-0.10); IMMATURE GRAN PERCENT AUTO 3 % (0-1); LYMPHOCYTES ABSOLUTE AUTO 0.92 K/mm3 (0.84-5.20); LYMPHOCYTES PERCENT AUTO 9 % (21-46); MONOCYTES ABSOLUTE AUTO 0.44 K/mm3 (0.16-1.47); MONOCYTES PERCENT AUTO 4 % (4-13); Mean Corpuscular HGB 26.9 pg (26.0-34.0); Mean Corpuscular HGB Conc 29.5 g/dL (31.5-36.5); Mean Corpuscular Volume 91 fL (80-100); Mean Platelet Volume 8.8 fL (9.1-12.4); NEUTROPHILS ABSOLUTE AUTO 8.19 K/mm3 (1.96-9.15); NEUTROPHILS PERCENT AUTO 82 % (41-73); Platelet Count 412 K/mm3 (150-400); RDW Coefficient Variation 15.9 % (11.7-14.2); RDW Standard Deviation 53.3 fL (35.1-46.3); Red Blood Cell Count 3.08 M/mm3 (4.30-5.90); White Blood Cell Count 9.97 K/mm3 (4.00-11.30)
[2023-10-12 15:56] LABS: Albumin, Blood 2.1 g/dL (3.4-5.0); Albumin/Globulin Ratio 0.4 (0.8-1.8); Bilirubin, Total 0.1 mg/dL (0.1-1.0); Bun/Creatinine Ratio 34.7 (12.0-20.0); Creatinine, Blood 1.21 mg/dL (0.60-1.20); Globulin, Blood 4.9 g/dL (2.2-4.0); Magnesium, Blood 2.6 mg/dL (1.6-2.4); Phosphorus, Blood 3.7 mg/dL (2.5-4.9); Potassium, Blood 4.8 mmol/L (3.5-5.5)
[2023-10-12 16:07] LABS: International Normalized Ratio 1.03
[2023-10-12 16:17] LABS: Source, Urine Clean Catch
[2023-10-12 16:27] LABS: Appearance, Urine Turbid (Clear); Bilirubin, Urine Neg (Neg); Blood, Urine 5+ (Neg); Glucose Qualitative, Urine Neg (Neg); Ketones, Urine Neg (Neg); Leukocyte Esterase, Urine 3+ (Neg); Nitrite, Urine Neg (Neg); Protein, Urine 3+ (Neg); Specific Gravity, Urine 1.015 (1.003-1.022); Urobilinogen, Urine NORM (Normal)
[2023-10-12 16:41] LABS: Color, Urine Pale Yellow (P-Yellow)
[2023-10-12 16:42] LABS: Red Blood Cells, Urine TNTC /hpf (0-2); White Blood Cells, Urine TNTC /hpf (0-5)
[2023-10-12 16:43] LABS: Bacteria Many /hpf; Mucus Light (0-Heavy); Squamous Epithelial Cells Mod /hpf (Few)
[2023-10-12 16:44] LABS: Amorphous Light (0-Heavy)
[2023-10-12 17:35] LABS: Influenza A, PCR NEGATIVE (NEGATIVE); Influenza B, PCR NEGATIVE (NEGATIVE); Resp Syncytial Virus, PCR NEGATIVE (NEGATIVE); SARS-Cov-2 (COVID-19) PCR, MMC NEGATIVE (NEGATIVE)
[2023-10-12] MEDS ORDERED: Lactated Ringer's 1,000 ML IV SCH (20:40)
[2023-10-12] MEDS ORDERED: Ondansetron HCl 2 MG / ML 2ML Vial IV PRN (20:40)
[2023-10-12] MEDS ORDERED: OxyCODONE HCL 30 MG TAB (Immediate Release) PO PRN (20:40)
[2023-10-12] MEDS ORDERED: Acetaminophen 325 MG TABLET PO PRN (20:40)
[2023-10-12] MEDS ORDERED: Morphine Sulfate 30 MG TabCR PO SCH (21:00)
[2023-10-12] MEDS ORDERED: Piperacillin/Tazobactam Sod 3.375 GM in NS 100 ML IV SCH (21:00)
[2023-10-12] MEDS ORDERED: Lactobacil 2-S.Thermo-Bifido 1 1 Cap PO SCH (21:00)
[2023-10-13] MEDS ORDERED: Gabapentin 400 MG Cap PO SCH
[2023-10-13 06:50] LABS: BASOPHILS ABSOLUTE AUTO 0.06 K/mm3 (0.00-0.23); BASOPHILS PERCENT AUTO 1 % (0-2); EOSINOPHILS ABSOLUTE AUTO 0.15 K/mm3 (0.00-0.68); EOSINOPHILS PERCENT AUTO 2 % (0-6); Hematocrit 27.1 % (37.0-53.0); Hemoglobin 7.9 g/dL (13.5-17.5); IMMATURE GRAN PERCENT AUTO 2 % (0-1); LYMPHOCYTES PERCENT AUTO 13 % (21-46); MONOCYTES ABSOLUTE AUTO 0.57 K/mm3 (0.16-1.47); MONOCYTES PERCENT AUTO 7 % (4-13); Mean Corpuscular HGB 26.9 pg (26.0-34.0); Mean Corpuscular HGB Conc 29.2 g/dL (31.5-36.5); Mean Corpuscular Volume 92 fL (80-100); Mean Platelet Volume 8.8 fL (9.1-12.4); NEUTROPHILS ABSOLUTE AUTO 6.62 K/mm3 (1.96-9.15); NEUTROPHILS PERCENT AUTO 76 % (41-73); Platelet Count 318 K/mm3 (150-400); RDW Coefficient Variation 16.1 % (11.7-14.2); RDW Standard Deviation 54.9 fL (35.1-46.3); Red Blood Cell Count 2.94 M/mm3 (4.30-5.90)
[2023-10-13 07:10] LABS: Bun/Creatinine Ratio 32.7 (12.0-20.0); Calcium, Blood 7.8 mg/dL (8.5-10.1); Creatinine, Blood 1.1 mg/dL (0.60-1.20); Magnesium, Blood 2.5 mg/dL (1.6-2.4); Potassium, Blood 4.3 mmol/L (3.5-5.5)
[2023-10-13] MEDS ORDERED: Insulin Human Lispro 100 Units/ML 3ML Syringe SC SCH (07:30)
[2023-10-13] MEDS ORDERED: Insulin Isoph 70 / Reg 30 100 Unit/ML 10ML Vial SC SCH (07:30)
[2023-10-13] MEDS ORDERED: Enoxaparin 40 MG/0.4 ML SYR SC SCH (09:00)
[2023-10-13 14:23] VITALS: BP 137/97
[2023-10-13] MEDS ORDERED: OMEP20ER PO (16:24)
[2023-10-13] MEDS ORDERED: ALLEGRA ALLERG180 MG PO (16:24)
[2023-10-13] MEDS ORDERED: Polyethylene Glycol 3350 17 gm PO PRN (16:55)
[2023-10-13] MEDS ORDERED: TiZANidine HCl 4 MG Tab PO PRN (16:55)
[2023-10-13] MEDS ORDERED: NS 250 ML IV PRN (18:20)
[2023-10-13 20:12] VITALS: BP 135/56
[2023-10-13] MEDS ORDERED: AmLODIPine Besylate 5 MG Tab PO SCH (21:00)
[2023-10-13] MEDS ORDERED: Methenamine 1 GM TAB PO SCH (21:00)
[2023-10-14 04:47] VITALS: BP 150/61
[2023-10-14] MEDS ORDERED: Omeprazole 20 MG CapCR PO SCH (06:00)
[2023-10-14 06:01] LABS: BASOPHILS ABSOLUTE AUTO 0.06 K/mm3 (0.00-0.23); BASOPHILS PERCENT AUTO 1 % (0-2); EOSINOPHILS ABSOLUTE AUTO 0.38 K/mm3 (0.00-0.68); EOSINOPHILS PERCENT AUTO 4 % (0-6); Hematocrit 26.3 % (37.0-53.0); Hemoglobin 7.6 g/dL (13.5-17.5); IMMATURE GRAN ABSOLUTE AUTO 0.24 K/mm3 (0.00-0.10); IMMATURE GRAN PERCENT AUTO 3 % (0-1); LYMPHOCYTES ABSOLUTE AUTO 1.32 K/mm3 (0.84-5.20); LYMPHOCYTES PERCENT AUTO 15 % (21-46); MONOCYTES ABSOLUTE AUTO 0.57 K/mm3 (0.16-1.47); MONOCYTES PERCENT AUTO 6 % (4-13); Mean Corpuscular HGB 26.5 pg (26.0-34.0); Mean Corpuscular HGB Conc 28.9 g/dL (31.5-36.5); Mean Corpuscular Volume 92 fL (80-100); Mean Platelet Volume 8.9 fL (9.1-12.4); NEUTROPHILS ABSOLUTE AUTO 6.56 K/mm3 (1.96-9.15); NEUTROPHILS PERCENT AUTO 72 % (41-73); Platelet Count 382 K/mm3 (150-400); RDW Coefficient Variation 16.1 % (11.7-14.2); RDW Standard Deviation 54.5 fL (35.1-46.3); Red Blood Cell Count 2.87 M/mm3 (4.30-5.90); White Blood Cell Count 9.13 K/mm3 (4.00-11.30)
[2023-10-14 06:30] LABS: Albumin, Blood 1.9 g/dL (3.4-5.0); Albumin/Globulin Ratio 0.4 (0.8-1.8); Bilirubin, Total 0.2 mg/dL (0.1-1.0); Bun/Creatinine Ratio 28.7 (12.0-20.0); Creatinine, Blood 1.15 mg/dL (0.60-1.20); Globulin, Blood 4.6 g/dL (2.2-4.0); Potassium, Blood 4.5 mmol/L (3.5-5.5); Total Protein, Blood 6.5 g/dL (6.4-8.2)
[2023-10-14 07:47] VITALS: BP 127/50
[2023-10-14] MEDS ORDERED: Loratadine 10 MG Tab PO SCH (09:00)
[2023-10-14] MEDS ORDERED: Metoprolol Succinate 50 MG TABCR PO SCH (09:00)
[2023-10-14] MEDS ORDERED: Ferrous Sulfate 325 MG Tab PO SCH (09:00)
[2023-10-14] MEDS ORDERED: Torsemide 20 MG TAB PO SCH (09:00)
[2023-10-14 12:27] LABS: Source, Urine Foley catheter
[2023-10-14 12:35] LABS: Bilirubin, Urine Neg (Neg); Blood, Urine 5+ (Neg); Glucose Qualitative, Urine Neg (Neg); Ketones, Urine Neg (Neg); Leukocyte Esterase, Urine 3+ (Neg); Nitrite, Urine Neg (Neg); Protein, Urine 3+ (Neg); Specific Gravity, Urine 1.015 (1.003-1.022); Urobilinogen, Urine NORM (Normal)
[2023-10-14 13:09] LABS: Appearance, Urine Turbid (Clear); Color, Urine Pale Yellow (P-Yellow)
[2023-10-14 13:11] LABS: Bacteria Many /hpf; Hyaline Casts 0-2 /lpf (0-2); Red Blood Cells, Urine TNTC /hpf (0-2); Squamous Epithelial Cells Rare /hpf (Few); White Blood Cells, Urine TNTC /hpf (0-5)
[2023-10-14 13:12] LABS: Amorphous Heavy (0-Heavy)
[2023-10-14] MEDS ORDERED: NOVOLIN 70100 UNIT/4 SC (16:24)
[2023-10-14 16:56] VITALS: BP 148/51
[2023-10-14 19:29] VITALS: BP 137/50
[2023-10-15 05:16] VITALS: BP 136/65
[2023-10-15 07:34] LABS: BASOPHILS ABSOLUTE AUTO 0.06 K/mm3 (0.00-0.23); BASOPHILS PERCENT AUTO 1 % (0-2); EOSINOPHILS ABSOLUTE AUTO 0.32 K/mm3 (0.00-0.68); EOSINOPHILS PERCENT AUTO 4 % (0-6); Hematocrit 26.2 % (37.0-53.0); Hemoglobin 7.6 g/dL (13.5-17.5); IMMATURE GRAN ABSOLUTE AUTO 0.14 K/mm3 (0.00-0.10); IMMATURE GRAN PERCENT AUTO 2 % (0-1); LYMPHOCYTES ABSOLUTE AUTO 1.26 K/mm3 (0.84-5.20); LYMPHOCYTES PERCENT AUTO 15 % (21-46); MONOCYTES ABSOLUTE AUTO 0.46 K/mm3 (0.16-1.47); MONOCYTES PERCENT AUTO 6 % (4-13); Mean Corpuscular HGB 26.3 pg (26.0-34.0); Mean Corpuscular Volume 91 fL (80-100); Mean Platelet Volume 9.1 fL (9.1-12.4); NEUTROPHILS PERCENT AUTO 73 % (41-73); Platelet Count 386 K/mm3 (150-400); RDW Coefficient Variation 15.9 % (11.7-14.2); RDW Standard Deviation 52.6 fL (35.1-46.3); Red Blood Cell Count 2.89 M/mm3 (4.30-5.90); White Blood Cell Count 8.24 K/mm3 (4.00-11.30)
[2023-10-15 08:04] LABS: Bun/Creatinine Ratio 21.1 (12.0-20.0); Calcium, Blood 8.3 mg/dL (8.5-10.1); Creatinine, Blood 1.23 mg/dL (0.60-1.20)
[2023-10-15 08:08] VITALS: BP 146/59
[2023-10-15 09:06] LABS: Potassium, Blood 4.4 mmol/L (3.5-5.5)
[2023-10-15] MEDS ORDERED: GuaiFENesin 600 MG TabCR PO PRN (14:50)
[2023-10-15 15:11] VITALS: BP 140/57
[2023-10-15 19:27] VITALS: BP 149/49
[2023-10-15] MEDS ORDERED: Arginine/Glutamine/Calcium Hmb 1 Packet PO SCH (21:00)
[2023-10-16 03:01] VITALS: BP 165/62
[2023-10-16] MEDS ORDERED: Piperacillin/Tazobactam Sod 3.375 GM ONE ×2 (04:40→12:10)
[2023-10-16] MEDS ORDERED: NS 100 ML IV ONE ×2 (04:40→12:10)
[2023-10-16 07:37] VITALS: BP 157/51
[2023-10-16 07:39] LABS: BASOPHILS ABSOLUTE AUTO 0.06 K/mm3 (0.00-0.23); BASOPHILS PERCENT AUTO 1 % (0-2); EOSINOPHILS ABSOLUTE AUTO 0.35 K/mm3 (0.00-0.68); EOSINOPHILS PERCENT AUTO 5 % (0-6); Hematocrit 26.5 % (37.0-53.0); Hemoglobin 7.8 g/dL (13.5-17.5); IMMATURE GRAN ABSOLUTE AUTO 0.13 K/mm3 (0.00-0.10); IMMATURE GRAN PERCENT AUTO 2 % (0-1); LYMPHOCYTES ABSOLUTE AUTO 1.36 K/mm3 (0.84-5.20); LYMPHOCYTES PERCENT AUTO 18 % (21-46); MONOCYTES ABSOLUTE AUTO 0.53 K/mm3 (0.16-1.47); MONOCYTES PERCENT AUTO 7 % (4-13); Mean Corpuscular HGB 26.5 pg (26.0-34.0); Mean Corpuscular HGB Conc 29.4 g/dL (31.5-36.5); Mean Corpuscular Volume 90 fL (80-100); Mean Platelet Volume 9.1 fL (9.1-12.4); NEUTROPHILS ABSOLUTE AUTO 5.17 K/mm3 (1.96-9.15); NEUTROPHILS PERCENT AUTO 68 % (41-73); Platelet Count 409 K/mm3 (150-400); RDW Coefficient Variation 15.7 % (11.7-14.2); RDW Standard Deviation 51.8 fL (35.1-46.3); Red Blood Cell Count 2.94 M/mm3 (4.30-5.90)
[2023-10-16 07:59] LABS: Bun/Creatinine Ratio 26.3 (12.0-20.0); Calcium, Blood 8.5 mg/dL (8.5-10.1); Creatinine, Blood 1.14 mg/dL (0.60-1.20); Potassium, Blood 4.1 mmol/L (3.5-5.5)
[2023-10-16] MEDS ORDERED: JUVEN PACKET1 EAC3 PO (12:09)
[2023-10-16] MEDS ORDERED: FOSFOMYCIN TROME3 G1 PO (12:10)
== END 2023-10-16 15:30 | disposition home or self-care (01) | DRG 698 ==
LOC: ER 14:35 → ERHOLD 20:37 → MEDS 20:37 → ENPENDDIS 10-16 11:46 → MEDS 10-16 15:30
PROVIDERS: Emergency Medicine; Nurse Practitioner Acute Care; Student in an Organized Health Care Education/Training Program; ADMIT Family Medicine
PROC: 5A09357 Assistance with Respiratory Ventilation, Less than 24 Consecutive Hours, Continuous Positive Airway Pressure (ICD-10-PCS; principal; 2023-10-14)
DX: T83.511A Infection and inflammatory reaction due to indwelling urethral catheter, initial encounter (principal); J96.21 Acute and chronic respiratory failure with hypoxia; G82.20 Paraplegia, unspecified; Z16.24 Resistance to multiple antibiotics; F11.20 Opioid dependence, uncomplicated; N13.6 Pyonephrosis; I69.954 Hemiplegia and hemiparesis following unspecified cerebrovascular disease affecting left non-dominant side; L89.159 Pressure ulcer of sacral region, unspecified stage; L89.519 Pressure ulcer of right ankle, unspecified stage; Z99.81 Dependence on supplemental oxygen; K21.9 Gastro-esophageal reflux disease without esophagitis; G47.33 Obstructive sleep apnea (adult) (pediatric); E11.622 Type 2 diabetes mellitus with other skin ulcer; Y84.6 Urinary catheterization as the cause of abnormal reaction of the patient, or of later complication, without mention of misadventure at the time of the procedure; N31.9 Neuromuscular dysfunction of bladder, unspecified; D64.9 Anemia, unspecified; I48.0 Paroxysmal atrial fibrillation; I10 Essential (primary) hypertension; E78.5 Hyperlipidemia, unspecified; E66.01 Morbid (severe) obesity due to excess calories; G89.29 Other chronic pain; J45.909 Unspecified asthma, uncomplicated; Z96.641 Presence of right artificial hip joint; E21.3 Hyperparathyroidism, unspecified; Z88.1 Allergy status to other antibiotic agents; Z88.2 Allergy status to sulfonamides; Z88.8 Allergy status to other drugs, medicaments and biological substances; T36.8X5A Adverse effect of other systemic antibiotics, initial encounter; Z79.4 Long term (current) use of insulin; Z79.899 Other long term (current) drug therapy; Z79.2 Long term (current) use of antibiotics; Z86.19 Personal history of other infectious and parasitic diseases; Z90.49 Acquired absence of other specified parts of digestive tract; Z98.890 Other specified postprocedural states; Z93.3 Colostomy status; Z89.612 Acquired absence of left leg above knee; Z68.39 Body mass index [BMI] 39.0-39.9, adult
CPT/HCPCS: 0241U; 36415; 71045; 74177; 80048; 80053; 81001; 82947; 83605; 83735; 84100; 84145; 84484; 85025; 85610; 85730; 87040; 87070; 87086; 87106; 87205; 94762; 96365-59; 99285-25; A9270; J0696; J1642; J1650; J1815; J2543; J7050; Q9967

== ENCOUNTER 2023-11-21 12:31 | Day surgery (SDC) | payer MEDICARE, BC ==
[~2023-11-21] VITALS: Ht 188 cm; Wt 145.5 kg
[~2023-11-21 12:31] MED LIST changes: +Balanced Salt Epinephrine Irrigation Solution 500 mL IR SCH; +FOSFOMYCIN TROME3 G1 PO; +Lidocaine HCl/Pf 1% 5 ML VIAL XX SCH; +Moxifloxacin HCL 0.5 MG/0.1 ML 0.4MLSYR RIGHTEYE SCH; +NOVOLIN 70100 UNIT/4 SC; +NS 500 ML IV ONE; +PHENYLEPHRINE\\TROPICAMIDE\\TETRACAINE OPHTHALMIC DILATING SOLN RIGHTEYE PRN; +Povidone-Iodine 450 DROP/30 ML Solution ONE; +Povidone-Iodine 450 DROP/30 ML Solution RIGHTEYE SCH; +Tetracaine HCl/Pf 0.5% Opth Soln 4 ml ONE; +Triamcinolone Inj Susp 40 MG / ML 1ML Vial INJ SCH; +Triamcinolone Inj Susp 40 MG / ML 1ML Vial ONE
[2023-11-21] MEDS ORDERED: NOVOLIN 70100 UNIT/3 (13:43)
[2023-11-21] MEDS ORDERED: NS 500 ML IV ONE (13:48)
[2023-11-21] MEDS ORDERED: Midazolam HCl 1MG / ML 2ML Vial ONE (14:46)
[2023-11-21 15:18] VITALS: BP 127/52
--- NOTE | 2023-11-21 15:25 | NUR ---
11/21/23 1525 Saray Velásquez PT STAYED IN PERSONAL WHEELCHAIR FOR PROCEDURE, NO TRANSFER OCCURRED
[2023-11-26] MEDS ORDERED: CIPR500 PO (12:36)
[2023-11-26] MEDS ORDERED: IRBESARTAN PO (12:37)
[2023-11-26] MEDS ORDERED: [UNRECOGNIZED DRUG - CODE] (12:39)
== END 2023-11-21 15:45 | disposition home or self-care (01) ==
LOC: ORSCSDS 12:31
PROVIDERS: Ophthalmology
PROC: 08RJ3JZ Replacement of Right Lens with Synthetic Substitute, Percutaneous Approach (ICD-10-PCS; principal; 2023-11-21 14:30)
DX: E11.36 Type 2 diabetes mellitus with diabetic cataract (principal); H25.11 Age-related nuclear cataract, right eye; H25.813 Combined forms of age-related cataract, bilateral; I48.91 Unspecified atrial fibrillation; G47.33 Obstructive sleep apnea (adult) (pediatric); Z87.891 Personal history of nicotine dependence; G82.20 Paraplegia, unspecified; E66.01 Morbid (severe) obesity due to excess calories; Z68.41 Body mass index [BMI] 40.0-44.9, adult; Z79.899 Other long term (current) drug therapy
CPT/HCPCS: 82947; J2250; J3301; J7040; V2632

== ENCOUNTER 2023-12-04 04:47 | Day surgery (SDC) | payer MEDICARE, BC ==
[~2023-12-04 04:47] MED LIST changes: -Balanced Salt Epinephrine Irrigation Solution 500 mL IR SCH; +IRBESARTAN PO; -Lidocaine HCl/Pf 1% 5 ML VIAL XX SCH; -Moxifloxacin HCL 0.5 MG/0.1 ML 0.4MLSYR RIGHTEYE SCH; +NOVOLIN 70100 UNIT/3; -NS 500 ML IV ONE; -PHENYLEPHRINE\\TROPICAMIDE\\TETRACAINE OPHTHALMIC DILATING SOLN RIGHTEYE PRN; -Povidone-Iodine 450 DROP/30 ML Solution ONE; -Povidone-Iodine 450 DROP/30 ML Solution RIGHTEYE SCH; -Tetracaine HCl/Pf 0.5% Opth Soln 4 ml ONE; -Triamcinolone Inj Susp 40 MG / ML 1ML Vial INJ SCH; -Triamcinolone Inj Susp 40 MG / ML 1ML Vial ONE; +[UNRECOGNIZED DRUG - CODE]
[2023-12-04 15:20] VITALS: BP 161/57
[2023-12-04 16:56] LABS: BASOPHILS ABSOLUTE AUTO 0.08 K/mm3 (0.00-0.23); BASOPHILS PERCENT AUTO 1 % (0-2); EOSINOPHILS ABSOLUTE AUTO 0.47 K/mm3 (0.00-0.68); EOSINOPHILS PERCENT AUTO 5 % (0-6); Hematocrit 31.6 % (37.0-53.0); Hemoglobin 9.6 g/dL (13.5-17.5); IMMATURE GRAN ABSOLUTE AUTO 0.17 K/mm3 (0.00-0.10); IMMATURE GRAN PERCENT AUTO 2 % (0-1); LYMPHOCYTES ABSOLUTE AUTO 1.63 K/mm3 (0.84-5.20); LYMPHOCYTES PERCENT AUTO 16 % (21-46); MONOCYTES ABSOLUTE AUTO 0.66 K/mm3 (0.16-1.47); MONOCYTES PERCENT AUTO 6 % (4-13); Mean Corpuscular HGB 27.4 pg (26.0-34.0); Mean Corpuscular HGB Conc 30.4 g/dL (31.5-36.5); Mean Corpuscular Volume 90 fL (80-100); Mean Platelet Volume 9.4 fL (9.1-12.4); NEUTROPHILS PERCENT AUTO 71 % (41-73); Platelet Count 447 K/mm3 (150-400); RDW Coefficient Variation 14.9 % (11.7-14.2); RDW Standard Deviation 49.6 fL (35.1-46.3); White Blood Cell Count 10.51 K/mm3 (4.00-11.30)
[2023-12-04 17:19] LABS: Albumin, Blood 2.3 g/dL (3.4-5.0); Anion Gap 9 mmol/L (3-11); Blood Urea Nitrogen 38 mg/dL (8-24); Bun/Creatinine Ratio 34.2 (12.0-20.0); CO2, Blood 31 mmol/L (21-32); Calcium, Blood 8.5 mg/dL (8.5-10.1); Chloride, Blood 102 mmol/L (98-108); Creatinine, Blood 1.11 mg/dL (0.60-1.20); Ferritin, Serum 794 ng/mL (26-388); Glomerular Filtration Rate 71 (60-); Glucose, Blood 184 mg/dL (70-99); Iron Serum 33 ug/dL (65-175); Percent Saturation 19.4 % (20.0-50.0); Phosphorus, Blood 3.8 mg/dL (2.5-4.9); Potassium, Blood 4.5 mmol/L (3.5-5.5); Sodium, Blood 137 mmol/L (136-145); Total Iron Binding Capacity 170 ug/dL (250-450)
== END 2023-12-04 15:32 | disposition home or self-care (01) ==
LOC: ATC 04:47
PROVIDERS: Hospitalist
DX: I12.9 Hypertensive chronic kidney disease with stage 1 through stage 4 chronic kidney disease, or unspecified chronic kidney disease (principal); E11.22 Type 2 diabetes mellitus with diabetic chronic kidney disease; N18.2 Chronic kidney disease, stage 2 (mild); I48.91 Unspecified atrial fibrillation; G82.20 Paraplegia, unspecified; Z87.891 Personal history of nicotine dependence; Z79.4 Long term (current) use of insulin; Z79.899 Other long term (current) drug therapy; Z88.6 Allergy status to analgesic agent; Z88.2 Allergy status to sulfonamides; Z88.1 Allergy status to other antibiotic agents; Z88.8 Allergy status to other drugs, medicaments and biological substances
CPT/HCPCS: 36591; 80069; 82728; 83540; 83550; 85025; J1642

== ENCOUNTER 2024-02-05 03:23 | Day surgery (SDC) | payer MEDICARE, BC ==
[2024-02-05 14:05] VITALS: BP 138/73
[2024-02-05 14:30] LABS: BASOPHILS ABSOLUTE AUTO 0.09 K/mm3 (0.00-0.23); BASOPHILS PERCENT AUTO 1 % (0-2); EOSINOPHILS PERCENT AUTO 5 % (0-6); Hematocrit 32.9 % (37.0-53.0); IMMATURE GRAN ABSOLUTE AUTO 0.15 K/mm3 (0.00-0.10); IMMATURE GRAN PERCENT AUTO 1 % (0-1); LYMPHOCYTES ABSOLUTE AUTO 1.88 K/mm3 (0.84-5.20); LYMPHOCYTES PERCENT AUTO 16 % (21-46); MONOCYTES ABSOLUTE AUTO 0.83 K/mm3 (0.16-1.47); MONOCYTES PERCENT AUTO 7 % (4-13); Mean Corpuscular HGB 28.6 pg (26.0-34.0); Mean Corpuscular HGB Conc 30.4 g/dL (31.5-36.5); Mean Corpuscular Volume 94 fL (80-100); Mean Platelet Volume 9.2 fL (9.1-12.4); NEUTROPHILS ABSOLUTE AUTO 8.12 K/mm3 (1.96-9.15); NEUTROPHILS PERCENT AUTO 70 % (41-73); Platelet Count 411 K/mm3 (150-400); RDW Coefficient Variation 14.6 % (11.7-14.2); RDW Standard Deviation 50.2 fL (35.1-46.3); White Blood Cell Count 11.67 K/mm3 (4.00-11.30)
[2024-02-05 15:02] LABS: Bun/Creatinine Ratio 37.3 (12.0-20.0); Calcium, Blood 8.7 mg/dL (8.5-10.1); Creatinine, Blood 1.18 mg/dL (0.60-1.20); Potassium, Blood 4.7 mmol/L (3.5-5.5)
== END 2024-02-05 14:12 | disposition home or self-care (01) ==
LOC: ATC 03:23
PROVIDERS: Nurse Practitioner Family
DX: R31.0 Gross hematuria (principal); I12.9 Hypertensive chronic kidney disease with stage 1 through stage 4 chronic kidney disease, or unspecified chronic kidney disease; E11.22 Type 2 diabetes mellitus with diabetic chronic kidney disease; N18.2 Chronic kidney disease, stage 2 (mild); N13.8 Other obstructive and reflux uropathy; D64.9 Anemia, unspecified; I48.91 Unspecified atrial fibrillation; G47.30 Sleep apnea, unspecified; Z87.891 Personal history of nicotine dependence; Z88.1 Allergy status to other antibiotic agents; Z79.4 Long term (current) use of insulin; Z79.899 Other long term (current) drug therapy
CPT/HCPCS: 36591; 80048; 85025; J1642

== ENCOUNTER → 2024-04-15 | Outpatient (CLI) | payer MEDICARE, BC | LOC: LAB 15:23 → LAB SHORT 15:23 | DX: N39.0 Urinary tract infection, site not specified (principal) | CPT/HCPCS: 87077; 87086; 87186 ==

== ENCOUNTER → 2024-04-20 | Outpatient (CLI) | payer MEDICARE, BC | LOC: LAB SHORT 10:15 → LAB 10:15 | DX: L89.313 Pressure ulcer of right buttock, stage 3 (principal) | CPT/HCPCS: 87070; 87077; 87186; 87205 ==

== ENCOUNTER → 2024-04-24 | Outpatient (CLI) | payer MEDICARE, BC | END | disposition home or self-care (01) | LOC: LAB 12:28 → LAB SHORT 12:28 | DX: L89.313 Pressure ulcer of right buttock, stage 3 (principal) | CPT/HCPCS: 87070; 87075; 87077; 87186; 87205 ==

== ENCOUNTER 2024-06-08 02:01 | Day surgery (SDC) | payer MEDICARE, BC ==
[2024-06-08 14:57] LABS: BASOPHILS ABSOLUTE AUTO 0.11 K/mm3 (0.00-0.23); BASOPHILS PERCENT AUTO 1 % (0-2); EOSINOPHILS ABSOLUTE AUTO 0.36 K/mm3 (0.00-0.68); EOSINOPHILS PERCENT AUTO 3 % (0-6); Hematocrit 35.7 % (37.0-53.0); Hemoglobin 10.8 g/dL (13.5-17.5); IMMATURE GRAN ABSOLUTE AUTO 0.15 K/mm3 (0.00-0.10); IMMATURE GRAN PERCENT AUTO 1 % (0-1); LYMPHOCYTES ABSOLUTE AUTO 1.58 K/mm3 (0.84-5.20); LYMPHOCYTES PERCENT AUTO 14 % (21-46); MONOCYTES ABSOLUTE AUTO 0.67 K/mm3 (0.16-1.47); MONOCYTES PERCENT AUTO 6 % (4-13); Mean Corpuscular HGB 28.5 pg (26.0-34.0); Mean Corpuscular HGB Conc 30.3 g/dL (31.5-36.5); Mean Corpuscular Volume 94 fL (80-100); Mean Platelet Volume 9.7 fL (9.1-12.4); NEUTROPHILS ABSOLUTE AUTO 8.64 K/mm3 (1.96-9.15); NEUTROPHILS PERCENT AUTO 75 % (41-73); Platelet Count 450 K/mm3 (150-400); RDW Standard Deviation 48.1 fL (35.1-46.3); Red Blood Cell Count 3.79 M/mm3 (4.30-5.90); White Blood Cell Count 11.51 K/mm3 (4.00-11.30)
[2024-06-08 15:24] LABS: Albumin, Blood 2.9 g/dL (3.4-5.0); Anion Gap 9 mmol/L (3-11); Blood Urea Nitrogen 42 mg/dL (8-24); Bun/Creatinine Ratio 44.9 (12.0-20.0); CO2, Blood 27 mmol/L (21-32); Calcium, Blood 8.7 mg/dL (8.5-10.1); Chloride, Blood 105 mmol/L (98-108); Creatinine, Blood 0.94 mg/dL (0.60-1.20); Ferritin, Serum 539 ng/mL (26-388); Glomerular Filtration Rate 87 (60-); Glucose, Blood 116 mg/dL (70-99); Iron Serum 47 ug/dL (65-175); Percent Saturation 23.4 % (20.0-50.0); Phosphorus, Blood 3.4 mg/dL (2.5-4.9); Potassium, Blood 4.3 mmol/L (3.5-5.5); Sodium, Blood 137 mmol/L (136-145); Total Iron Binding Capacity 201 ug/dL (250-450)
== END 2024-06-08 14:05 | disposition home or self-care (01) ==
LOC: ATC 02:01
PROVIDERS: Hospitalist
DX: Z45.2 Encounter for adjustment and management of vascular access device (principal); I12.9 Hypertensive chronic kidney disease with stage 1 through stage 4 chronic kidney disease, or unspecified chronic kidney disease; N18.2 Chronic kidney disease, stage 2 (mild); E11.22 Type 2 diabetes mellitus with diabetic chronic kidney disease; Z79.4 Long term (current) use of insulin; Z88.1 Allergy status to other antibiotic agents; Z88.2 Allergy status to sulfonamides; Z87.891 Personal history of nicotine dependence
CPT/HCPCS: 36591; 80069; 82728; 83540; 83550; 85025; J1642

== ENCOUNTER 2024-07-08 02:32 | Day surgery (SDC) | payer MEDICARE, BC ==
[2024-07-08 15:15] VITALS: BP 184/69
[2024-07-08 15:58] LABS: BASOPHILS ABSOLUTE AUTO 0.08 K/mm3 (0.00-0.23); BASOPHILS PERCENT AUTO 1 % (0-2); EOSINOPHILS ABSOLUTE AUTO 0.36 K/mm3 (0.00-0.68); EOSINOPHILS PERCENT AUTO 4 % (0-6); Hematocrit 33.1 % (37.0-53.0); IMMATURE GRAN ABSOLUTE AUTO 0.13 K/mm3 (0.00-0.10); IMMATURE GRAN PERCENT AUTO 1 % (0-1); LYMPHOCYTES ABSOLUTE AUTO 1.56 K/mm3 (0.84-5.20); LYMPHOCYTES PERCENT AUTO 17 % (21-46); MONOCYTES ABSOLUTE AUTO 0.67 K/mm3 (0.16-1.47); MONOCYTES PERCENT AUTO 7 % (4-13); Mean Corpuscular HGB 28.2 pg (26.0-34.0); Mean Corpuscular HGB Conc 30.2 g/dL (31.5-36.5); Mean Corpuscular Volume 94 fL (80-100); Mean Platelet Volume 9.4 fL (9.1-12.4); NEUTROPHILS ABSOLUTE AUTO 6.61 K/mm3 (1.96-9.15); NEUTROPHILS PERCENT AUTO 70 % (41-73); Platelet Count 412 K/mm3 (150-400); RDW Coefficient Variation 13.2 % (11.7-14.2); RDW Standard Deviation 45.7 fL (35.1-46.3); Red Blood Cell Count 3.54 M/mm3 (4.30-5.90); White Blood Cell Count 9.41 K/mm3 (4.00-11.30)
[2024-07-08 16:47] LABS: Albumin, Blood 2.6 g/dL (3.4-5.0); Anion Gap 8 mmol/L (3-11); Blood Urea Nitrogen 39 mg/dL (8-24); Bun/Creatinine Ratio 34.5 (12.0-20.0); CO2, Blood 31 mmol/L (21-32); Calcium, Blood 8.7 mg/dL (8.5-10.1); Chloride, Blood 102 mmol/L (98-108); Creatinine, Blood 1.13 mg/dL (0.60-1.20); Ferritin, Serum 541 ng/mL (26-388); Glomerular Filtration Rate 70 (60-); Glucose, Blood 160 mg/dL (70-99); Iron Serum 25 ug/dL (65-175); Percent Saturation 14.1 % (20.0-50.0); Phosphorus, Blood 3.6 mg/dL (2.5-4.9); Potassium, Blood 4.2 mmol/L (3.5-5.5); Sodium, Blood 137 mmol/L (136-145); Total Iron Binding Capacity 177 ug/dL (250-450)
== END 2024-07-08 15:30 | disposition home or self-care (01) ==
LOC: ATC 02:32
PROVIDERS: Hospitalist
DX: Z45.2 Encounter for adjustment and management of vascular access device (principal); E11.22 Type 2 diabetes mellitus with diabetic chronic kidney disease; I12.9 Hypertensive chronic kidney disease with stage 1 through stage 4 chronic kidney disease, or unspecified chronic kidney disease; N18.2 Chronic kidney disease, stage 2 (mild); I48.91 Unspecified atrial fibrillation; G47.30 Sleep apnea, unspecified; Z79.4 Long term (current) use of insulin; Z79.899 Other long term (current) drug therapy; Z88.2 Allergy status to sulfonamides; Z88.8 Allergy status to other drugs, medicaments and biological substances; Z99.89 Dependence on other enabling machines and devices; Z87.891 Personal history of nicotine dependence
CPT/HCPCS: 36591; 80069; 82728; 83540; 83550; 85025; J1642

== ENCOUNTER 2024-07-29 01:06 | Day surgery (SDC) | payer MEDICARE, BC ==
[~2024-07-29 01:06] MED LIST changes: +Sod Ferric Gluc Complx/Sucrose 125 MG in NS 100 ML IV SCH
[2024-07-29 13:11] VITALS: BP 159/62
== END 2024-07-29 11:35 | disposition home or self-care (01) ==
LOC: ATC 01:06
DX: I12.9 Hypertensive chronic kidney disease with stage 1 through stage 4 chronic kidney disease, or unspecified chronic kidney disease (principal); N18.2 Chronic kidney disease, stage 2 (mild); D63.1 Anemia in chronic kidney disease; I48.91 Unspecified atrial fibrillation; I73.00 Raynaud's syndrome without gangrene; E11.9 Type 2 diabetes mellitus without complications; E66.2 Morbid (severe) obesity with alveolar hypoventilation; Z68.39 Body mass index [BMI] 39.0-39.9, adult; Z87.891 Personal history of nicotine dependence; Z79.4 Long term (current) use of insulin; Z79.899 Other long term (current) drug therapy; Z88.1 Allergy status to other antibiotic agents; Z88.2 Allergy status to sulfonamides; Z88.8 Allergy status to other drugs, medicaments and biological substances
CPT/HCPCS: 96365; J1642; J2916

== ENCOUNTER 2024-08-26 02:31 | Day surgery (SDC) | payer MEDICARE, BC ==
[~2024-08-26 02:31] MED LIST changes: -NOVOLIN 70100 UNIT/3; +NOVOLIN 70100 UNIT/3 SC; -Sod Ferric Gluc Complx/Sucrose 125 MG in NS 100 ML IV SCH
[2024-08-26] MEDS ORDERED: Sod Ferric Gluc Complx/Sucrose 125 MG in NS 100 ML IV SCH (06:00)
[2024-08-26 15:44] VITALS: BP 140/55
[2024-08-26 16:07] LABS: BASOPHILS ABSOLUTE AUTO 0.10 K/mm3 (0.00-0.23); BASOPHILS PERCENT AUTO 1 % (0-2); EOSINOPHILS ABSOLUTE AUTO 0.32 K/mm3 (0.00-0.68); EOSINOPHILS PERCENT AUTO 2 % (0-6); Hematocrit 31.5 % (37.0-53.0); Hemoglobin 9.2 g/dL (13.5-17.5); IMMATURE GRAN ABSOLUTE AUTO 0.38 K/mm3 (0.00-0.10); IMMATURE GRAN PERCENT AUTO 3 % (0-1); LYMPHOCYTES ABSOLUTE AUTO 1.31 K/mm3 (0.84-5.20); LYMPHOCYTES PERCENT AUTO 9 % (21-46); MONOCYTES ABSOLUTE AUTO 0.84 K/mm3 (0.16-1.47); MONOCYTES PERCENT AUTO 6 % (4-13); Mean Corpuscular HGB Conc 29.2 g/dL (31.5-36.5); Mean Corpuscular Volume 93 fL (80-100); NEUTROPHILS ABSOLUTE AUTO 11.53 K/mm3 (1.96-9.15); NEUTROPHILS PERCENT AUTO 80 % (41-73); NRBC ABSOLUTE 0.00 K/mm3 (0.00-0.02); NRBC Auto 0.0 /100 WBC (0.0-0.2); Platelet Count 512 K/mm3 (150-400); RDW Coefficient Variation 14.3 % (11.7-14.2); RDW Standard Deviation 48.1 fL (35.1-46.3)
[2024-08-26 16:37] LABS: Total Iron Binding Capacity 155 ug/dL (250-450)
[2024-08-26 16:40] LABS: Albumin, Blood 1.9 g/dL (3.4-5.0); Anion Gap 8 mmol/L (3-11); Blood Urea Nitrogen 39 mg/dL (8-24); CO2, Blood 32 mmol/L (21-32); Calcium, Blood 8.3 mg/dL (8.5-10.1); Chloride, Blood 100 mmol/L (98-108); Creatinine, Blood 1.37 mg/dL (0.60-1.20); Ferritin, Serum 1232 ng/mL (26-388); Glucose, Blood 209 mg/dL (70-99); Phosphorus, Blood 3.4 mg/dL (2.5-4.9); Potassium, Blood 4.5 mmol/L (3.5-5.5); Sodium, Blood 135 mmol/L (136-145)
[2024-08-31] MEDS ORDERED: THERA-D2000 UNIT PO (16:23)
== END 2024-08-26 16:04 | disposition home or self-care (01) ==
LOC: ATC 02:31
PROVIDERS: Hospitalist
DX: I12.9 Hypertensive chronic kidney disease with stage 1 through stage 4 chronic kidney disease, or unspecified chronic kidney disease (principal); E11.22 Type 2 diabetes mellitus with diabetic chronic kidney disease; N18.2 Chronic kidney disease, stage 2 (mild); D63.1 Anemia in chronic kidney disease; M19.90 Unspecified osteoarthritis, unspecified site; I48.91 Unspecified atrial fibrillation; G82.20 Paraplegia, unspecified; I73.00 Raynaud's syndrome without gangrene; E66.2 Morbid (severe) obesity with alveolar hypoventilation; Z68.39 Body mass index [BMI] 39.0-39.9, adult; Z87.891 Personal history of nicotine dependence; Z79.4 Long term (current) use of insulin; Z79.891 Long term (current) use of opiate analgesic; Z79.899 Other long term (current) drug therapy; Z88.1 Allergy status to other antibiotic agents; Z88.2 Allergy status to sulfonamides; Z88.6 Allergy status to analgesic agent; Z88.8 Allergy status to other drugs, medicaments and biological substances
CPT/HCPCS: 36591; 80069; 82728; 83540; 83550; 85025; 96365; 96523; J1642; J2916

== ENCOUNTER 2024-08-30 20:44 | Inpatient (IN) | payer MEDICARE, BC ==
[~2024-08-30] VITALS: Ht 190.5 cm; Wt 140.6 kg
[~2024-08-30 20:44] MED LIST changes: +SOAANZ20 M1 PO
[2024-08-30 21:23] LABS: BASOPHILS ABSOLUTE AUTO 0.09 K/mm3 (0.00-0.23); BASOPHILS PERCENT AUTO 1 % (0-2); EOSINOPHILS ABSOLUTE AUTO 0.37 K/mm3 (0.00-0.68); EOSINOPHILS PERCENT AUTO 3 % (0-6); Hematocrit 29.3 % (37.0-53.0); Hemoglobin 8.7 g/dL (13.5-17.5); IMMATURE GRAN ABSOLUTE AUTO 0.30 K/mm3 (0.00-0.10); IMMATURE GRAN PERCENT AUTO 2 % (0-1); LYMPHOCYTES ABSOLUTE AUTO 1.51 K/mm3 (0.84-5.20); LYMPHOCYTES PERCENT AUTO 12 % (21-46); MONOCYTES ABSOLUTE AUTO 0.90 K/mm3 (0.16-1.47); MONOCYTES PERCENT AUTO 7 % (4-13); Mean Corpuscular HGB Conc 29.7 g/dL (31.5-36.5); Mean Corpuscular Volume 92 fL (80-100); NEUTROPHILS ABSOLUTE AUTO 9.66 K/mm3 (1.96-9.15); NEUTROPHILS PERCENT AUTO 75 % (41-73); NRBC ABSOLUTE 0.00 K/mm3 (0.00-0.02); NRBC Auto 0.0 /100 WBC (0.0-0.2); Platelet Count 596 K/mm3 (150-400); RDW Coefficient Variation 14.2 % (11.7-14.2); RDW Standard Deviation 47.9 fL (35.1-46.3)
[2024-08-30 21:42] LABS: Alanine Aminotransfer (ALT/SGP 18.0 U/L (12-78); Albumin, Blood 2.0 g/dL (3.4-5.0); Albumin/Globulin Ratio 0.4 (0.8-1.8); Anion Gap 7.0 mmol/L (3-11); Aspartate Aminotrans (AST/SGOT 10.0 U/L (12-37); Bilirubin, Total 0.2 mg/dL (0.1-1.0); Blood Urea Nitrogen 33.0 mg/dL (8-24); CO2, Blood 33.0 mmol/L (21-32); Calcium, Blood 8.3 mg/dL (8.5-10.1); Chloride, Blood 101.0 mmol/L (98-108); Creatinine, Blood 1.12 mg/dL (0.60-1.20); Globulin, Blood 4.8 g/dL (2.2-4.0); Glucose, Blood 133.0 mg/dL (70-99); Potassium, Blood 4.8 mmol/L (3.5-5.5); Sodium, Blood 136.0 mmol/L (136-145); Total Protein, Blood 6.8 g/dL (6.4-8.2)
[2024-08-30 22:55] LABS: Source, Urine Foley catheter
[2024-08-30 23:03] LABS: Bilirubin, Urine Neg (Neg); Glucose Qualitative, Urine Neg (Neg); Ketones, Urine Neg (Neg); Leukocyte Esterase, Urine 3+ (Neg); Protein, Urine 3+ (Neg); Specific Gravity, Urine 1.010 (1.003-1.022); Urobilinogen, Urine NORM (Normal)
[2024-08-30 23:07] LABS: Color, Urine Pale Yellow (P-Yellow)
[2024-08-30 23:09] LABS: Red Blood Cells, Urine 0-2 /hpf (0-2); White Blood Cells, Urine TNTC /hpf (0-5)
[2024-08-31] MEDS ORDERED: Vancomycin (Pharmacy Consult) IV PRN (00:25)
[2024-08-31] MEDS ORDERED: Piperacillin/Tazobactam Sod 3.375 GM in NS 100 ML IV ONE (00:30)
[2024-08-31] MEDS ORDERED: Clindamycin 600mg in D5W 50 ML IV ONE (01:20)
[2024-08-31] MEDS ORDERED: OxyCODONE HCL 30 MG TAB (Immediate Release) PO PRN (03:05)
[2024-08-31] MEDS ORDERED: OxyCODONE HCL 15 MG TAB.SR.12H PO SCH (04:00)
[2024-08-31 05:23] LABS: BASOPHILS ABSOLUTE AUTO 0.08 K/mm3 (0.00-0.23); BASOPHILS PERCENT AUTO 1 % (0-2); EOSINOPHILS ABSOLUTE AUTO 0.37 K/mm3 (0.00-0.68); EOSINOPHILS PERCENT AUTO 4 % (0-6); Hematocrit 27.6 % (37.0-53.0); Hemoglobin 8.1 g/dL (13.5-17.5); IMMATURE GRAN ABSOLUTE AUTO 0.25 K/mm3 (0.00-0.10); IMMATURE GRAN PERCENT AUTO 3 % (0-1); LYMPHOCYTES ABSOLUTE AUTO 1.58 K/mm3 (0.84-5.20); LYMPHOCYTES PERCENT AUTO 16 % (21-46); MONOCYTES ABSOLUTE AUTO 0.68 K/mm3 (0.16-1.47); MONOCYTES PERCENT AUTO 7 % (4-13); Mean Corpuscular HGB Conc 29.3 g/dL (31.5-36.5); Mean Corpuscular Volume 93 fL (80-100); NEUTROPHILS ABSOLUTE AUTO 7.23 K/mm3 (1.96-9.15); NEUTROPHILS PERCENT AUTO 71 % (41-73); NRBC ABSOLUTE 0.00 K/mm3 (0.00-0.02); NRBC Auto 0.0 /100 WBC (0.0-0.2); Platelet Count 491 K/mm3 (150-400); RDW Coefficient Variation 14.4 % (11.7-14.2); RDW Standard Deviation 48.8 fL (35.1-46.3)
[2024-08-31 05:46] LABS: Anion Gap 5.0 mmol/L (3-11); Blood Urea Nitrogen 31.0 mg/dL (8-24); CO2, Blood 34.0 mmol/L (21-32); Calcium, Blood 7.9 mg/dL (8.5-10.1); Chloride, Blood 102.0 mmol/L (98-108); Creatinine, Blood 1.1 mg/dL (0.60-1.20); Glucose, Blood 171.0 mg/dL (70-99); Potassium, Blood 4.7 mmol/L (3.5-5.5); Sodium, Blood 136.0 mmol/L (136-145)
[2024-08-31] MEDS ORDERED: Insulin Isoph 70 / Reg 30 100 Unit/ML 10ML Vial SC SCH (06:00)
[2024-08-31] MEDS ORDERED: Piperacillin/Tazobactam Sod 4.5 GM in NS 100 ML IV SCH (06:00)
[2024-08-31] MEDS ORDERED: Insulin Human Lispro 100 Units/ML 3ML Syringe SC SCH (07:30)
[2024-08-31] MEDS ORDERED: Clindamycin 600mg in D5W 50 ML IV SCH (08:00)
[2024-08-31] MEDS ORDERED: Lactobacil 2-S.Thermo-Bifido 1 1 Cap PO SCH (09:00)
[2024-08-31] MEDS ORDERED: Enoxaparin 40 MG/0.4 ML SYR SC SCH (09:00)
[2024-08-31] MEDS ORDERED: Torsemide 20 MG TAB PO SCH (09:00)
[2024-08-31 15:06] VITALS: BP 169/64
[2024-08-31] MEDS ORDERED: NS 250 ML IV PRN (15:25)
[2024-08-31] MEDS ORDERED: Vitamin D1000 UNI1 PO (16:23)
[2024-08-31] MEDS ORDERED: MAGNESIUM OXID500 MG PO (17:57)
[2024-08-31] MEDS ORDERED: HYDROCODONE-AC1 EA10 PO (17:58)
--- NOTE | 2024-08-31 19:42 | NUR ---
received pt from ER pt is a/o x4 unlike previous admissions where he was either confused or unresponsive. chest port accessed and infusing antibiotic, min draining yellow wuth thick white sediment. ostomy is CDI. dressing changes were done to right hip. pt was able to assist with turning. current dressing were saturated and not covering wounds. dressings were replaced. 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 rest of wound was cover with maxisorb and 4x4 plus abd. to krysten well, has no feeling below waste line. right foot dressing was changed this afternoon so no picks were taken pt transfered to air mattress/ [facility] bed and moved to rm [id number]
[2024-08-31 20:10] VITALS: BP 154/55
[2024-09-01 04:07] VITALS: BP 149/57
--- NOTE | 2024-09-01 04:22 | NUR ---
SUMMARY: PT A/OX4, CALLS APPROPRIATELY TO SPECIFY NEEDS AND IS PLEASANT AND COOPERATIVE W/CARE. HE'S W/C BOUND AT BASELINE W/LIFT REQUIRED OOB. PT IS PARAPLEGIC W/L.AKA AND LIMITED ROM TO RLE. STAGE IV DECUB PRESSURE WOUND PRESENT TO SACRUM W/DX REMAINING C/D/I. PT ALSO HAS DX INTACT TO R.OUTER ANKLE PRESSURE SORE. AIRBED IN PLACE AND TURN SCHEDULE IS MAINTAINED. CHRONIC DUET INDWELLING CATHETER IS PATENT/DRAINING AND WAS REPLACED BY HOME HEALTH ON 08/28/24. R.CW MEDIPORT IS ACCESSED AND IV ABX RECEIVED. HE WAS MEDICATED FOR PAIN W/SCHEDULED MS CONTIN AND PRN OXYCODONE FOR TOLERABLE EFFECT. PT SELF CARES FOR OSTOMY AND HAS OWN SUPPLIES. HE REMAINS ON 3L O2 VIA NC PER BASELINE W/SPO2 WNL ON CONT BIOX. VSS/AFEBRILE. WILL REPORT TO DAY RN.
[2024-09-01 08:10] VITALS: BP 153/64
--- NOTE | 2024-09-01 13:16 | NUR ---
Upon receiving a referral for spiritual care, I visited the patient. He tells me about the family and how his humor and sarcasm to at least two generations. He shares about his current medical problems and his hope that everything that needs to be discovered would be. We talk about his childhood and the love of hunting and fishing that began at a very young age. I provided therapeutic listening and prayer. The patient responded well and showed signs of an elevated mood. I will continue to remain available to the patient and family.
[2024-09-01 15:57] VITALS: BP 161/56
--- NOTE | 2024-09-01 19:22 | NUR ---
SHIFT SUMMARY PT IS A/OX4. BEDREST, LIFT PT. PT REPORTS LIFT TO WHEELCHAIR AT BASELINE. NO ACUTE CHANGES THROUGHOUT THIS SHIFT. DR GEORGE CONSULTED AND AT BEDSIDE THIS AFTERNOON. WOUNDS CLEANSED AND DRESSED THIS AFTERNOON PER WOUND CARE ORDERS AND PICTURES TAKEN AND PLACED IN THE CHART. ON 3L NC, SATS WNL, PT REPORTS 3L AT BASELINE. CHRONIC WEN PATENT AND DRAINING CLEAR, YELLOW URINE TO GRAVITY. FAMILY AT BEDSIDE THIS AFTERNOON. PT IS PLEASANT AND COOPERATIVE WITH CARE AND CALLS APPROPRIATELY.
[2024-09-01 20:15] VITALS: BP 151/55
[2024-09-02 03:45] VITALS: BP 161/54
--- NOTE | 2024-09-02 05:09 | NUR ---
SHIFT SUMMARY PATIENT IS ALERT AND ORIENTED. PATIENT HAS HAD NO ACUTE EVENTS THIS SHIFT. PATIENT IS A LIFT PATIENT ON AN AIR BED. PATIENT HAS BEEN TURNED NEEDED. PATIENT HAS A CHRONIC WEN AND IS PATENT AND DRAINING ELINA URINE TO GRAVITY. PATIENT HAS WOUNDS AND WOUND CARE WAS DONE DURING THE DAY. PATIENT HAS REPORTED PAIN AND MEDICATED PER EMAR. PATIENT HAS NO REPORTS OF SOB, NAUSEA OR VOMITTING. PATIENT IS ON 3L NC WHICH IS PTS BASELINE. BED IN LOCKED AND LOWEST POSITION.
[2024-09-02 07:10] LABS: BASOPHILS ABSOLUTE AUTO 0.09 K/mm3 (0.00-0.23); BASOPHILS PERCENT AUTO 1 % (0-2); EOSINOPHILS ABSOLUTE AUTO 0.42 K/mm3 (0.00-0.68); EOSINOPHILS PERCENT AUTO 5 % (0-6); Hematocrit 28.6 % (37.0-53.0); Hemoglobin 8.4 g/dL (13.5-17.5); IMMATURE GRAN ABSOLUTE AUTO 0.32 K/mm3 (0.00-0.10); IMMATURE GRAN PERCENT AUTO 4 % (0-1); LYMPHOCYTES ABSOLUTE AUTO 1.12 K/mm3 (0.84-5.20); LYMPHOCYTES PERCENT AUTO 14 % (21-46); MONOCYTES ABSOLUTE AUTO 0.49 K/mm3 (0.16-1.47); MONOCYTES PERCENT AUTO 6 % (4-13); Mean Corpuscular HGB Conc 29.4 g/dL (31.5-36.5); Mean Corpuscular Volume 93 fL (80-100); NEUTROPHILS ABSOLUTE AUTO 5.62 K/mm3 (1.96-9.15); NEUTROPHILS PERCENT AUTO 70 % (41-73); NRBC ABSOLUTE 0.00 K/mm3 (0.00-0.02); NRBC Auto 0.0 /100 WBC (0.0-0.2); Platelet Count 456 K/mm3 (150-400); RDW Coefficient Variation 14.5 % (11.7-14.2); RDW Standard Deviation 48.9 fL (35.1-46.3)
[2024-09-02 07:39] VITALS: BP 159/59
[2024-09-02 07:40] LABS: Anion Gap 4.0 mmol/L (3-11); Blood Urea Nitrogen 20.0 mg/dL (8-24); CO2, Blood 34.0 mmol/L (21-32); Calcium, Blood 8.1 mg/dL (8.5-10.1); Chloride, Blood 103.0 mmol/L (98-108); Creatinine, Blood 1.15 mg/dL (0.60-1.20); Glucose, Blood 139.0 mg/dL (70-99); Potassium, Blood 4.2 mmol/L (3.5-5.5); Sodium, Blood 137.0 mmol/L (136-145)
[2024-09-02] MEDS ORDERED: Iron Dextran 50 MG / ML 2ML Vial IV ONE (14:55)
[2024-09-02 15:02] VITALS: BP 160/60
[2024-09-02] MEDS ORDERED: Iron Dextran 975 MG in NS 250 ML IV ONE (16:30)
--- NOTE | 2024-09-02 16:53 | NUR ---
SHIFT SUMMARY PT AOX4, COOPERATIVE, ABLE TO MAKE NEEDS KNOWN. PT IS BEDREST, LIFT PT. PARAPLEGIC, LEFT LEG AMP. PRESSURE ULCER ON RIGHT BUTTOCKS AND INJURY TO TAVON AREA, WOUND CARE ORDERS IN AND PERFORMED. ON 3LO2 CURRENTLY, WHICH IS BASELINE. TOLERATING PO AND IV MEDICATION. MIGHT DC TOMORROW DEPENDANT UPON BLOOD CULTERES.BED IN LOWETS POSITION, CALL LIGHT WITHIN REACH.
[2024-09-02 19:46] VITALS: BP 150/59
--- NOTE | 2024-09-03 03:22 | NUR ---
WEEKLY SUMMARY PT ALERT ORIENTED X 4 ABLE TO VERBALIZE NEEDS REMAINS ON 3L VIA NC WHICH IS BASELINE FOR HIM. WEN CATHETER INTACT DRAINING PINK DARK ELINA URINE. COLOSTOMY BAG INTACT WHICH HES ABLE TO MANAGE AND CHANGE HIMSELF. C/O SHOULDER PAIN MEDICATED WITH MS BID AND OXY Q4HR PRN. FS DONE AC AND HS WAS 212. DRESSING INTACT TO HIS SACRAL PRESSURE ULCER. REMAINS ON ZOSYN Q6HR FOR UTI AND INFECTION TO SACRAL WOUND. RT CHEST PORT IS ASSESSED AND IS TKO. HES WAITING ON CULTURE RESULTS TO COME BACK SO HE CAN DC TO HOME ON THE RIGHT ANTIBIOTIC. RESTING IN BED AT THIS TIME WITH CALL LIGHT IN REACH
[2024-09-03 04:38] VITALS: BP 173/68
[2024-09-03 05:13] LABS: BASOPHILS ABSOLUTE AUTO 0.09 K/mm3 (0.00-0.23); BASOPHILS PERCENT AUTO 1 % (0-2); EOSINOPHILS ABSOLUTE AUTO 0.53 K/mm3 (0.00-0.68); EOSINOPHILS PERCENT AUTO 6 % (0-6); Hematocrit 30.2 % (37.0-53.0); Hemoglobin 8.8 g/dL (13.5-17.5); IMMATURE GRAN ABSOLUTE AUTO 0.33 K/mm3 (0.00-0.10); IMMATURE GRAN PERCENT AUTO 4 % (0-1); LYMPHOCYTES ABSOLUTE AUTO 1.51 K/mm3 (0.84-5.20); LYMPHOCYTES PERCENT AUTO 17 % (21-46); MONOCYTES ABSOLUTE AUTO 0.48 K/mm3 (0.16-1.47); MONOCYTES PERCENT AUTO 5 % (4-13); Mean Corpuscular HGB Conc 29.1 g/dL (31.5-36.5); Mean Corpuscular Volume 92 fL (80-100); NEUTROPHILS ABSOLUTE AUTO 6.16 K/mm3 (1.96-9.15); NEUTROPHILS PERCENT AUTO 68 % (41-73); NRBC ABSOLUTE 0.00 K/mm3 (0.00-0.02); NRBC Auto 0.0 /100 WBC (0.0-0.2); Platelet Count 501 K/mm3 (150-400); RDW Coefficient Variation 14.2 % (11.7-14.2); RDW Standard Deviation 48.2 fL (35.1-46.3)
[2024-09-03 07:57] VITALS: BP 140/53
[2024-09-03] MEDS ORDERED: ACET325 PO (14:37)
--- NOTE | 2024-09-03 19:34 | NUR ---
DISCHARGE SUMMARY CLIENT AOX4. MEDICATION COMPLIANT. COMPLAINED OF PAIN X2, MEDICATED PER EMAR. SEEN BY PROVIDER AND DISCHARGE ORDERS RECEIVED. IV D/C'D. DISCHARGE PACKET GIVEN AND EXPLAINED TO CLIENT. CLIENT ESCORTED OFF OF UNIT VIA PERSONAL WHEELCHAIR.
== END 2024-09-03 15:10 | disposition home or self-care (01) | DRG 698 ==
LOC: ER 20:44 → ERHOLD 08-31 02:19 → MEDS 08-31 02:19
PROVIDERS: Emergency Medicine; Internal Medicine; Student in an Organized Health Care Education/Training Program; ADMIT Student in an Organized Health Care Education/Training Program
DX: T83.511A Infection and inflammatory reaction due to indwelling urethral catheter, initial encounter (principal); L89.154 Pressure ulcer of sacral region, stage 4; I69.854 Hemiplegia and hemiparesis following other cerebrovascular disease affecting left non-dominant side; M86.9 Osteomyelitis, unspecified; F11.20 Opioid dependence, uncomplicated; J96.11 Chronic respiratory failure with hypoxia; G82.20 Paraplegia, unspecified; Z16.24 Resistance to multiple antibiotics; E11.622 Type 2 diabetes mellitus with other skin ulcer; Z96.641 Presence of right artificial hip joint; K74.60 Unspecified cirrhosis of liver; E05.90 Thyrotoxicosis, unspecified without thyrotoxic crisis or storm; N18.30 Chronic kidney disease, stage 3 unspecified; E11.22 Type 2 diabetes mellitus with diabetic chronic kidney disease; E11.69 Type 2 diabetes mellitus with other specified complication; L89.519 Pressure ulcer of right ankle, unspecified stage; I48.0 Paroxysmal atrial fibrillation; I12.9 Hypertensive chronic kidney disease with stage 1 through stage 4 chronic kidney disease, or unspecified chronic kidney disease; D63.1 Anemia in chronic kidney disease; G47.33 Obstructive sleep apnea (adult) (pediatric); G89.29 Other chronic pain; B96.5 Pseudomonas (aeruginosa) (mallei) (pseudomallei) as the cause of diseases classified elsewhere; B96.4 Proteus (mirabilis) (morganii) as the cause of diseases classified elsewhere; D50.9 Iron deficiency anemia, unspecified; B95.62 Methicillin resistant Staphylococcus aureus infection as the cause of diseases classified elsewhere; E66.01 Morbid (severe) obesity due to excess calories; N31.9 Neuromuscular dysfunction of bladder, unspecified; Z79.4 Long term (current) use of insulin; Z88.8 Allergy status to other drugs, medicaments and biological substances; Z88.1 Allergy status to other antibiotic agents; Z88.2 Allergy status to sulfonamides; Z79.899 Other long term (current) drug therapy; Z99.3 Dependence on wheelchair; Z98.890 Other specified postprocedural states; Z90.49 Acquired absence of other specified parts of digestive tract; Z93.3 Colostomy status; Z89.512 Acquired absence of left leg below knee; Z99.89 Dependence on other enabling machines and devices; Z68.38 Body mass index [BMI] 38.0-38.9, adult; Z99.81 Dependence on supplemental oxygen; Z87.828 Personal history of other (healed) physical injury and trauma; Z74.01 Bed confinement status; Y84.6 Urinary catheterization as the cause of abnormal reaction of the patient, or of later complication, without mention of misadventure at the time of the procedure
CPT/HCPCS: 36415; 80048; 80053; 81001; 82947; 83605; 85025; 87070; 87075; 87077; 87086; 87147; 87186; 87205; 93005; 93010; 94760; 96365; 96367; 97110-CQ; 97161; 97530; 99285-25; A9270; J1650; J1750; J1815; J2543; J7050

== ENCOUNTER 2024-09-07 13:33 | Emergency (ER) | payer MEDICARE, BC ==
[~2024-09-07] VITALS: Ht 182.9 cm; Wt 140.2 kg
[~2024-09-07 13:33] MED LIST changes: +HYDROCODONE-AC1 EA10 PO; +MAGNESIUM OXID500 MG PO; +Vitamin D1000 UNI1 PO
[2024-09-07 16:00] LABS: BASOPHILS ABSOLUTE AUTO 0.10 K/mm3 (0.00-0.23); BASOPHILS PERCENT AUTO 1 % (0-2); EOSINOPHILS ABSOLUTE AUTO 0.39 K/mm3 (0.00-0.68); EOSINOPHILS PERCENT AUTO 3 % (0-6); Hematocrit 30.3 % (37.0-53.0); Hemoglobin 8.7 g/dL (13.5-17.5); IMMATURE GRAN ABSOLUTE AUTO 0.71 K/mm3 (0.00-0.10); IMMATURE GRAN PERCENT AUTO 5 % (0-1); LYMPHOCYTES ABSOLUTE AUTO 1.75 K/mm3 (0.84-5.20); LYMPHOCYTES PERCENT AUTO 13 % (21-46); MONOCYTES ABSOLUTE AUTO 0.71 K/mm3 (0.16-1.47); MONOCYTES PERCENT AUTO 5 % (4-13); Mean Corpuscular HGB Conc 28.7 g/dL (31.5-36.5); Mean Corpuscular Volume 95 fL (80-100); NEUTROPHILS ABSOLUTE AUTO 9.46 K/mm3 (1.96-9.15); NEUTROPHILS PERCENT AUTO 72 % (41-73); NRBC ABSOLUTE 0.00 K/mm3 (0.00-0.02); NRBC Auto 0.0 /100 WBC (0.0-0.2); Platelet Count 492 K/mm3 (150-400); RDW Coefficient Variation 14.9 % (11.7-14.2); RDW Standard Deviation 50.9 fL (35.1-46.3)
[2024-09-07 16:28] LABS: Alanine Aminotransfer (ALT/SGP 16.0 U/L (12-78); Albumin, Blood 2.2 g/dL (3.4-5.0); Albumin/Globulin Ratio 0.5 (0.8-1.8); Anion Gap 4.0 mmol/L (3-11); Aspartate Aminotrans (AST/SGOT 16.0 U/L (12-37); Bilirubin, Total 0.2 mg/dL (0.1-1.0); Blood Urea Nitrogen 30.0 mg/dL (8-24); C-Reactive Protein, High Sens. 40.8 mg/L (0.000-3.000); CO2, Blood 32.0 mmol/L (21-32); Calcium, Blood 8.1 mg/dL (8.5-10.1); Chloride, Blood 104.0 mmol/L (98-108); Creatinine, Blood 1.13 mg/dL (0.60-1.20); Globulin, Blood 4.5 g/dL (2.2-4.0); Glucose, Blood 131.0 mg/dL (70-99); Potassium, Blood 4.3 mmol/L (3.5-5.5); Sodium, Blood 136.0 mmol/L (136-145); Total Protein, Blood 6.7 g/dL (6.4-8.2)
[2024-09-07 21:00] VITALS: BP 161/59
== END 2024-09-07 23:09 | disposition home or self-care (01) ==
LOC: ER 13:33
PROVIDERS: Emergency Medicine
DX: L89.319 Pressure ulcer of right buttock, unspecified stage (principal); E11.69 Type 2 diabetes mellitus with other specified complication; M86.9 Osteomyelitis, unspecified; I12.9 Hypertensive chronic kidney disease with stage 1 through stage 4 chronic kidney disease, or unspecified chronic kidney disease; E11.22 Type 2 diabetes mellitus with diabetic chronic kidney disease; N18.30 Chronic kidney disease, stage 3 unspecified; J45.909 Unspecified asthma, uncomplicated; G47.33 Obstructive sleep apnea (adult) (pediatric); G83.9 Paralytic syndrome, unspecified; Z99.3 Dependence on wheelchair; Z88.1 Allergy status to other antibiotic agents; Z88.2 Allergy status to sulfonamides; Z88.8 Allergy status to other drugs, medicaments and biological substances; Z79.899 Other long term (current) drug therapy; Z79.4 Long term (current) use of insulin
CPT/HCPCS: 72192; 73502; 80053; 85025; 85651; 86141; 93005; 93010; 99284-25; J1642

== ENCOUNTER → 2024-09-09 | Outpatient (CLI) | payer MEDICARE, BC ==
[2024-09-09 18:21] LABS: Source, Urine Clean Catch
[2024-09-09 19:09] LABS: Bilirubin, Urine Neg (Neg); Color, Urine Yellow (P-Yellow); Glucose Qualitative, Urine Neg (Neg); Ketones, Urine Neg (Neg); Leukocyte Esterase, Urine 3+ (Neg); Protein, Urine 3+ (Neg); Specific Gravity, Urine 1.010 (1.003-1.022); Urobilinogen, Urine NORM (Normal)
[2024-09-09 19:25] LABS: White Blood Cells, Urine TNTC /hpf (0-5)
[2024-09-09 19:26] LABS: Yeast/Fungi Urine Few /hpf
== END ==
LOC: LAB SHORT 18:19 → LAB 18:19
PROVIDERS: Hospitalist
DX: N39.0 Urinary tract infection, site not specified (principal)
CPT/HCPCS: 81001; 87086

== ENCOUNTER → 2024-09-14 | Outpatient (CLI) | payer MEDICARE, BC | END | disposition home or self-care (01) | LOC: LAB SHORT 18:04 → LAB 18:04 | DX: L89.313 Pressure ulcer of right buttock, stage 3 (principal); M86.50 Other chronic hematogenous osteomyelitis, unspecified site | CPT/HCPCS: 87070; 87075; 87205 ==

== ENCOUNTER 2024-11-03 02:11 | Day surgery (SDC) | payer MEDICARE, BC ==
[2024-11-03 16:54] VITALS: BP 152/56
[2024-11-03 17:13] LABS: BASOPHILS ABSOLUTE AUTO 0.09 K/mm3 (0.00-0.23); BASOPHILS PERCENT AUTO 1 % (0-2); EOSINOPHILS ABSOLUTE AUTO 0.45 K/mm3 (0.00-0.68); EOSINOPHILS PERCENT AUTO 4 % (0-6); Hematocrit 31.5 % (37.0-53.0); Hemoglobin 9.3 g/dL (13.5-17.5); IMMATURE GRAN ABSOLUTE AUTO 0.29 K/mm3 (0.00-0.10); IMMATURE GRAN PERCENT AUTO 3 % (0-1); LYMPHOCYTES ABSOLUTE AUTO 1.56 K/mm3 (0.84-5.20); LYMPHOCYTES PERCENT AUTO 13 % (21-46); MONOCYTES ABSOLUTE AUTO 0.73 K/mm3 (0.16-1.47); MONOCYTES PERCENT AUTO 6 % (4-13); Mean Corpuscular HGB Conc 29.5 g/dL (31.5-36.5); Mean Corpuscular Volume 94 fL (80-100); NEUTROPHILS ABSOLUTE AUTO 8.57 K/mm3 (1.96-9.15); NEUTROPHILS PERCENT AUTO 73 % (41-73); NRBC ABSOLUTE 0.00 K/mm3 (0.00-0.02); NRBC Auto 0.0 /100 WBC (0.0-0.2); Platelet Count 415 K/mm3 (150-400); RDW Coefficient Variation 15.7 % (11.7-14.2); RDW Standard Deviation 53.8 fL (35.1-46.3)
[2024-11-03 17:28] LABS: Albumin, Blood 2.5 g/dL (3.4-5.0); Anion Gap 5 mmol/L (3-11); Blood Urea Nitrogen 47 mg/dL (8-24); CO2, Blood 33 mmol/L (21-32); Calcium, Blood 8.2 mg/dL (8.5-10.1); Chloride, Blood 105 mmol/L (98-108); Creatinine, Blood 1.23 mg/dL (0.60-1.20); Glucose, Blood 178 mg/dL (70-99); Phosphorus, Blood 3.6 mg/dL (2.5-4.9); Potassium, Blood 4.7 mmol/L (3.5-5.5); Sodium, Blood 138 mmol/L (136-145); Total Iron Binding Capacity 157 ug/dL (250-450)
== END 2024-11-03 16:30 | disposition home or self-care (01) ==
LOC: ATC 02:11
PROVIDERS: Hospitalist
DX: Z45.2 Encounter for adjustment and management of vascular access device (principal); I12.9 Hypertensive chronic kidney disease with stage 1 through stage 4 chronic kidney disease, or unspecified chronic kidney disease; E11.22 Type 2 diabetes mellitus with diabetic chronic kidney disease; N18.2 Chronic kidney disease, stage 2 (mild); I48.91 Unspecified atrial fibrillation; E11.69 Type 2 diabetes mellitus with other specified complication; M86.9 Osteomyelitis, unspecified; Z79.4 Long term (current) use of insulin; Z79.899 Other long term (current) drug therapy; Z88.1 Allergy status to other antibiotic agents; Z88.2 Allergy status to sulfonamides; Z88.8 Allergy status to other drugs, medicaments and biological substances; Z87.891 Personal history of nicotine dependence
CPT/HCPCS: 36591; 80069; 83540; 83550; 85025; J1642

== ENCOUNTER 2024-12-01 01:17 | Day surgery (SDC) | payer MEDICARE, BC ==
[2024-12-01] MEDS ORDERED: Epoetin Alfa-EPBX 10,000 Unit/ML 1ML Vial SC SCH (06:00)
[2024-12-01 16:23] LABS: BASOPHILS ABSOLUTE AUTO 0.11 K/mm3 (0.00-0.23); BASOPHILS PERCENT AUTO 1 % (0-2); EOSINOPHILS ABSOLUTE AUTO 0.56 K/mm3 (0.00-0.68); EOSINOPHILS PERCENT AUTO 5 % (0-6); Hematocrit 32.5 % (37.0-53.0); Hemoglobin 9.9 g/dL (13.5-17.5); IMMATURE GRAN ABSOLUTE AUTO 0.18 K/mm3 (0.00-0.10); IMMATURE GRAN PERCENT AUTO 2 % (0-1); LYMPHOCYTES ABSOLUTE AUTO 1.55 K/mm3 (0.84-5.20); LYMPHOCYTES PERCENT AUTO 14 % (21-46); MONOCYTES ABSOLUTE AUTO 0.61 K/mm3 (0.16-1.47); MONOCYTES PERCENT AUTO 5 % (4-13); Mean Corpuscular HGB Conc 30.5 g/dL (31.5-36.5); Mean Corpuscular Volume 92 fL (80-100); NEUTROPHILS ABSOLUTE AUTO 8.25 K/mm3 (1.96-9.15); NEUTROPHILS PERCENT AUTO 73 % (41-73); NRBC ABSOLUTE 0.00 K/mm3 (0.00-0.02); NRBC Auto 0.0 /100 WBC (0.0-0.2); Platelet Count 433 K/mm3 (150-400); RDW Coefficient Variation 15.0 % (11.7-14.2); RDW Standard Deviation 50.3 fL (35.1-46.3)
[2024-12-01 16:55] LABS: Albumin, Blood 2.5 g/dL (3.4-5.0); Anion Gap 8 mmol/L (3-11); Blood Urea Nitrogen 41 mg/dL (8-24); CO2, Blood 31 mmol/L (21-32); Calcium, Blood 8.4 mg/dL (8.5-10.1); Chloride, Blood 105 mmol/L (98-108); Creatinine, Blood 1.36 mg/dL (0.60-1.20); Glucose, Blood 139 mg/dL (70-99); Phosphorus, Blood 3.8 mg/dL (2.5-4.9); Potassium, Blood 4.5 mmol/L (3.5-5.5); Sodium, Blood 139 mmol/L (136-145); Total Iron Binding Capacity 188 ug/dL (250-450)
--- NOTE | 2024-12-01 17:43 | NUR ---
PT REPORTS NEVER REEIVING PROCRIT BEFORE. PT PROVIDED VERBAL AND WRITTEN EDUCATION REGARDING MEDICATION. PT DECINED 30 MIN POST INJECTION OBSERVATION. PT WAS IN THE CLINIC FOR APPROX. 10 MIN AFTER INJECTION. PT SHOWED NO SIGNS OF REACTION. ADVISED PT TO COME TO ER IF HE DISPLAYED ANY SIGNS OF MEDICATION REACTION. PT VERBALIZED UNDERTANDING.
== END 2024-12-01 15:46 | disposition home or self-care (01) ==
LOC: ATC 01:17
PROVIDERS: Hospitalist
DX: Z45.2 Encounter for adjustment and management of vascular access device (principal); I12.9 Hypertensive chronic kidney disease with stage 1 through stage 4 chronic kidney disease, or unspecified chronic kidney disease; E11.22 Type 2 diabetes mellitus with diabetic chronic kidney disease; N18.2 Chronic kidney disease, stage 2 (mild); D63.1 Anemia in chronic kidney disease; I48.91 Unspecified atrial fibrillation; G82.20 Paraplegia, unspecified; Z87.891 Personal history of nicotine dependence; Z79.4 Long term (current) use of insulin; Z79.899 Other long term (current) drug therapy; Z88.1 Allergy status to other antibiotic agents; Z88.2 Allergy status to sulfonamides; Z88.6 Allergy status to analgesic agent; Z88.8 Allergy status to other drugs, medicaments and biological substances
CPT/HCPCS: 80069; 83540; 83550; 85025; J1642; Q5106

== ENCOUNTER 2025-01-28 02:24 | Day surgery (SDC) | payer MEDICARE, BC ==
[2025-01-28] MEDS ORDERED: Epoetin Alfa-EPBX 10,000 Unit/ML 1ML Vial SC SCH (06:00)
[2025-01-28 14:57] VITALS: BP 191/65
[2025-01-28 16:04] LABS: BASOPHILS ABSOLUTE AUTO 0.07 K/mm3 (0.00-0.23); BASOPHILS PERCENT AUTO 1 % (0-2); EOSINOPHILS ABSOLUTE AUTO 0.36 K/mm3 (0.00-0.68); EOSINOPHILS PERCENT AUTO 3 % (0-6); Hematocrit 35.5 % (37.0-53.0); Hemoglobin 10.6 g/dL (13.5-17.5); IMMATURE GRAN ABSOLUTE AUTO 0.09 K/mm3 (0.00-0.10); IMMATURE GRAN PERCENT AUTO 1 % (0-1); LYMPHOCYTES ABSOLUTE AUTO 1.32 K/mm3 (0.84-5.20); LYMPHOCYTES PERCENT AUTO 13 % (21-46); MONOCYTES ABSOLUTE AUTO 0.64 K/mm3 (0.16-1.47); MONOCYTES PERCENT AUTO 6 % (4-13); Mean Corpuscular HGB Conc 29.9 g/dL (31.5-36.5); Mean Corpuscular Volume 94 fL (80-100); NEUTROPHILS ABSOLUTE AUTO 7.98 K/mm3 (1.96-9.15); NEUTROPHILS PERCENT AUTO 76 % (41-73); NRBC ABSOLUTE 0.00 K/mm3 (0.00-0.02); NRBC Auto 0.0 /100 WBC (0.0-0.2); Platelet Count 381 K/mm3 (150-400); RDW Coefficient Variation 14.4 % (11.7-14.2); RDW Standard Deviation 49.4 fL (35.1-46.3)
[2025-01-28 16:13] LABS: Albumin, Blood 2.9 g/dL (3.4-5.0); Anion Gap 6 mmol/L (3-11); Blood Urea Nitrogen 44 mg/dL (8-24); CO2, Blood 29 mmol/L (21-32); Calcium, Blood 8.2 mg/dL (8.5-10.1); Chloride, Blood 106 mmol/L (98-108); Creatinine, Blood 1.04 mg/dL (0.60-1.20); Ferritin, Serum 650 ng/mL (26-388); Glucose, Blood 187 mg/dL (70-99); Phosphorus, Blood 3.5 mg/dL (2.5-4.9); Potassium, Blood 4.4 mmol/L (3.5-5.5); Sodium, Blood 137 mmol/L (136-145); Total Iron Binding Capacity 182 ug/dL (250-450)
== END 2025-01-28 15:08 | disposition home or self-care (01) ==
LOC: ATC 02:24
PROVIDERS: Hospitalist
DX: Z45.2 Encounter for adjustment and management of vascular access device (principal); I12.9 Hypertensive chronic kidney disease with stage 1 through stage 4 chronic kidney disease, or unspecified chronic kidney disease; E11.22 Type 2 diabetes mellitus with diabetic chronic kidney disease; N18.31 Chronic kidney disease, stage 3a; D63.1 Anemia in chronic kidney disease; M19.90 Unspecified osteoarthritis, unspecified site; I48.91 Unspecified atrial fibrillation; Z87.891 Personal history of nicotine dependence; Z79.4 Long term (current) use of insulin; Z79.891 Long term (current) use of opiate analgesic; Z79.899 Other long term (current) drug therapy; Z88.1 Allergy status to other antibiotic agents; Z88.2 Allergy status to sulfonamides; Z88.8 Allergy status to other drugs, medicaments and biological substances
CPT/HCPCS: 36591; 80069; 82728; 83540; 83550; 85025; 96372; 99211; J1642; Q5106

== ENCOUNTER → 2025-02-17 | Outpatient (CLI) | payer MEDICARE, BC ==
[2025-02-17 14:58] LABS: Bilirubin, Urine Neg (Neg); Color, Urine Yellow (P-Yellow); Glucose Qualitative, Urine Neg (Neg); Ketones, Urine Neg (Neg); Leukocyte Esterase, Urine 3+ (Neg); Protein, Urine 3+ (Neg); Specific Gravity, Urine 1.010 (1.003-1.022); Urobilinogen, Urine NORM (Normal)
== END | disposition home or self-care (01) ==
LOC: LAB SHORT 13:45 → LAB 13:45
PROVIDERS: Nurse Practitioner Family
DX: N18.30 Chronic kidney disease, stage 3 unspecified (principal); Z87.440 Personal history of urinary (tract) infections
CPT/HCPCS: 81001; 87077; 87086; 87186